=== PATIENT | female | born 1965 | race Caucasian/White ===

== ENCOUNTER 2020-08-03 18:02 | Inpatient (IN) | payer BC ==
[2020-08-03 19:35] LABS: Amphetamine Screen,Urine Not Detected (NotDetected); Barbiturate Screen,Urine Not Detected (NotDetected); Benzodiazepines Screen,Urine Not Detected (NotDetected); Cocaine Screen,Urine Not Detected (NotDetected); Methadone Screen, Urine Not Detected (NotDetected); Opiate Screen,Urine Not Detected (NotDetected); Oxycodone Screen, Urine Not Detected (NotDetected); Phencyclidine Screen,Urine Not Detected (NotDetected); Tricyclic Antidepressant,Urine Not Detected (NotDetected); Urn Cannabinoid Scrn Detected (NotDetected)
[2020-08-03] MEDS ORDERED: LORazepam 1 MG TAB PO STA (20:58)
[2020-08-03] MEDS ORDERED: MAG HYDROX/AL HYDROX/SIMETH 30 ML CUP PO PRN (22:27)
[2020-08-03] MEDS ORDERED: MAGNESIUM HYDROXIDE 2,400 MG/10 ML CUP PO PRN (22:27)
--- NOTE | 2020-08-03 22:57 | ED ---
General Adult HPI - General Source: patient, RN notes reviewed, old records reviewed Mode of arrival: ambulatory Limitations: no limitations <Flo Jang - Last Filed: 08/03/20 22:56> <Lori Spence - Last Filed: 08/10/20 14:50> - General Chief complaint: Psychiatric Symptoms Stated complaint: Mental Health Time Seen by Provider: 08/03/20 18:10 - History of Present Illness Initial comments: 55-year-old female patient to ED for mental health evaluation. Patient reportedly has a history of schizophrenia and has not been taking medications. Patient is denying suicidal or homicidal ideations however does have pressured speech and is tangential. Denies any physical complaints. Systemic: Pt denies fatigue, fever/chills, rash. Pt denies weakness, night sweats, weight loss. Neuro: Pt denies headache, visual disturbances, syncope or pre-syncope. HEENT: Pt denies ocular discharge or irritation, otalgia, rhinorrhea, pharyngitis or notable lymphadenopathy. Cardiopulmonary: Pt denies chest pain, SOB, heart palpitations, dyspnea on exertion. Abdominal/GI: Pt denies abdominal pain, n/v/d. : Pt denies dysuria, burning w/ urination, frequency/urgency. Denies new onset urinary or bowel incontinence. MSK: Pt denies myalgia, loss of strength or function in extremities. Neuro: Pt denies new onset weakness, paresthesias. (Flo Jang) - Related Data Allergies Allergy/AdvReac Type Severity Reaction Status Date / Time acetaminophen [From Vicodin] Allergy Rash/Hives Verified 08/04/20 02:28 hydrocodone [From Vicodin] Allergy Rash/Hives Verified 08/04/20 02:28 Review of Systems ROS Other: All systems not noted in ROS Statement are negative. <Flo Jang - Last Filed: 08/03/20 22:56> ROS Other: All systems not noted in ROS Statement are negative. <Lori Spence - Last Filed: 08/10/20 14:50> ROS Statement: Those systems with pertinent positive or pertinent negative responses have been documented in the HPI. Past Medical History Past Medical History: No Reported History History of Any Multi-Drug Resistant Organisms: None Reported Past Surgical History: No Surgical Hx Reported Past Psychological History: Schizoaffective Disorder, Schizophrenia Smoking Status: Current every day smoker Past Alcohol Use History: None Reported Past Drug Use History: Marijuana <Flo Jang - Last Filed: 08/03/20 22:56> General Exam Limitations: no limitations <Flo Jang - Last Filed: 08/03/20 22:56> - General Exam Comments Initial Comments: Constitutional: NAD, AOX3, Pt has pleasant affect. HEENT: NC/AT, trachea midline, neck supple. External ears appear normal, without discharge. Mucous membranes moist. EOM intact. There is no scleral icterus. No pallor noted. Cardiopulmonary: RRR, no murmurs, rubs or gallops, no JVD noted. Lungs CTAB in anterior and posterior wright. No peripheral edema. Abdominal exam: Abdomen soft and non-distended. Abdomen non-tender to palpation in all 4 quadrants. Neuro: CN II-XII grossly intact. No nuchal rigidity. MSK: Full active ROM in upper and lower extremities. (Flo Jang) Course Vital Signs 08/03/20 08/03/20 18:06 22:39 Temperature 98.0 F 97.9 F Pulse Rate 98 69 Respiratory 16 16 Rate Blood Pressure 180/104 125/79 O2 Sat by Pulse 99 98 Oximetry Medical Decision Making <Flo Jang - Last Filed: 08/03/20 22:56> - Lab Data Result diagrams: 08/04/20 06:44 08/04/20 06:44 <Lori Spence - Last Filed: 08/10/20 14:50> - Medical Decision Making 55-year-old female patient to ED for mental health evaluation. Patient was evaluated by emergency psychiatric service and recommended for admission. Additional spelled out by Dr. Spence. Case discussed with Dr. Spence. (Flo Jang) I was available for consultation in the emergency department. The history and physical exam were done by the midlevel provider. I was consulted for this patients care. I reviewed the case with the midlevel provider and based on their presentation of the patient, I agree with the assessment, medical decision making and plan of care as documented. Chart was dictated using [employer] dictation software. Attempts were made to correct any dictation errors however some typographical errors may persist. Patient was seen during a national state of emergency due to the Covid-19 pandemic. (Lori Spence) - Lab Data Lab Results 08/03/20 08/03/20 Range/Units 19:21 21:06 Urine Opiates Screen Not Detected (NotDetected) Ur Oxycodone Screen Not Detected (NotDetected) Urine Methadone Screen Not Detected (NotDetected) Ur Propoxyphene Screen Not Detected (NotDetected) Ur Barbiturates Screen Not Detected (NotDetected) U Tricyclic Antidepress Not Detected (NotDetected) Ur Phencyclidine Scrn Not Detected (NotDetected) Ur Amphetamines Screen Not Detected (NotDetected) U Methamphetamines Scrn Not Detected (NotDetected) U Benzodiazepines Scrn Not Detected (NotDetected) Urine Cocaine Screen Not Detected (NotDetected) U Marijuana (THC) Screen Detected H (NotDetected) Coronavirus (PCR) Not Detected (Not Detected) Disposition Is patient prescribed a controlled substance at d/c from ED?: No <Flo Jang - Last Filed: 08/03/20 22:56> <Lori Spence - Last Filed: 08/10/20 14:50> Clinical Impression: Psychiatric disorder Disposition: ADMITTED IP TO THIS HOSP Condition: Serious
[2020-08-04 07:17] LABS: Basophils # (A) 0.1 k/uL (0-0.2); Basophils % (A) 1 %; Eosinophils # (A) 0.4 k/uL (0-0.7); Eosinophils % (A) 4 %; HCT 47.8 % (34.0-46.0); HGB 16.6 gm/dL (11.4-16.0); Lymphocytes # (A) 1.5 k/uL (1.0-4.8); Lymphocytes % (A) 18 %; MCH 34.5 pg (25.0-35.0); MCHC 34.8 g/dL (31.0-37.0); MCV 99.3 fL (80.0-100.0); Mean Platelet Volume 6.9; Monocytes # (A) 0.4 k/uL (0-1.0); Monocytes % (A) 5 %; Neutrophils # (A) 5.5 k/uL (1.3-7.7); Neutrophils % (A) 70 %; Platelet Count 158 k/uL (150-450); RBC 4.82 m/uL (3.80-5.40); RDW 12.6 % (11.5-15.5); WBC 7.9 k/uL (3.8-10.6)
[2020-08-04 07:47] LABS: ALT 36 U/L (4-34); AST 36 U/L (14-36); African American GFR (CKD) >90 (>60 ml/min/1.73 sqM); Albumin 4.7 g/dL (3.5-5.0); Alkaline Phosphatase 60 U/L (38-126); Anion Gap 11 mmol/L; Blood Urea Nitrogen 14 mg/dL (7-17); Calcium 9.8 mg/dL (8.4-10.2); Carbon Dioxide 27 mmol/L (22-30); Chloride 100 mmol/L (98-107); Cholesterol 217 mg/dL (<200); Glucose 126 mg/dL (74-99); HDL Cholesterol 42 mg/dL (40-60); LDL Cholesterol,Calculated 146 mg/dL (0-99); Non-African American GFR(CKD) 85 (>60 ml/min/1.73 sqM); Potassium 3.8 mmol/L (3.5-5.1); Sodium 138 mmol/L (137-145); Total Bilirubin 1.4 mg/dL (0.2-1.3); Total Protein 8.6 g/dL (6.3-8.2); Triglycerides 143 mg/dL (<150)
[2020-08-04] MEDS ORDERED: haloperidoL 1 MG TAB PO SCH (09:00)
[2020-08-04] MEDS ORDERED: haloperidoL 1 MG TAB PO PRN (10:37)
--- NOTE | 2020-08-04 10:39 | P.HP ---
Psychiatric H&P - . H&P Date: 08/04/20 History & Physical: Allergies Allergy/AdvReac Type Severity Reaction Status Date / Time acetaminophen From Vicodin Allergy Rash/Hives Verified 08/04/20 02:28 hydrocodone From Vicodin Allergy Rash/Hives Verified 08/04/20 02:28 Vital Signs Temp 99.1 F 08/04/20 06:21 Pulse 91 08/04/20 06:21 Resp 18 08/04/20 06:21 BP 139/58 08/04/20 06:21 Pulse Ox 96 08/04/20 06:21 Intake & Output 08/03/20 08/04/20 08/04/20 18:59 06:59 18:59 Weight 104.326 kg 99.4 kg 99.4 kg Laboratory Last Values WBC 7.9 k/uL (3.8-10.6) 08/04/20 06:44 RBC 4.82 m/uL (3.80-5.40) 08/04/20 06:44 Hgb 16.6 gm/dL (11.4-16.0) H 08/04/20 06:44 Hct 47.8 % (34.0-46.0) H 08/04/20 06:44 MCV 99.3 fL (80.0-100.0) 08/04/20 06:44 MCH 34.5 pg (25.0-35.0) 08/04/20 06:44 MCHC 34.8 g/dL (31.0-37.0) 08/04/20 06:44 RDW 12.6 % (11.5-15.5) 08/04/20 06:44 Plt Count 158 k/uL (150-450) 08/04/20 06:44 MPV 6.9 08/04/20 06:44 Neutrophils % 70 % 08/04/20 06:44 Lymphocytes % 18 % 08/04/20 06:44 Monocytes % 5 % 08/04/20 06:44 Eosinophils % 4 % 08/04/20 06:44 Basophils % 1 % 08/04/20 06:44 Neutrophils # 5.5 k/uL (1.3-7.7) 08/04/20 06:44 Lymphocytes # 1.5 k/uL (1.0-4.8) 08/04/20 06:44 Monocytes # 0.4 k/uL (0-1.0) 08/04/20 06:44 Eosinophils # 0.4 k/uL (0-0.7) 08/04/20 06:44 Basophils # 0.1 k/uL (0-0.2) 08/04/20 06:44 Sodium 138 mmol/L (137-145) 08/04/20 06:44 Potassium 3.8 mmol/L (3.5-5.1) 08/04/20 06:44 Chloride 100 mmol/L (98-107) 08/04/20 06:44 Carbon Dioxide 27 mmol/L (22-30) 08/04/20 06:44 Anion Gap 11 mmol/L 08/04/20 06:44 BUN 14 mg/dL (7-17) 08/04/20 06:44 Creatinine 0.79 mg/dL (0.52-1.04) 08/04/20 06:44 Est GFR (CKD-EPI)AfAm >90 (>60 ml/min/1.73 sqM) 08/04/20 06:44 Est GFR (CKD-EPI)NonAf 85 (>60 ml/min/1.73 sqM) 08/04/20 06:44 Glucose 126 mg/dL (74-99) H 08/04/20 06:44 Calcium 9.8 mg/dL (8.4-10.2) 08/04/20 06:44 Total Bilirubin 1.4 mg/dL (0.2-1.3) H 08/04/20 06:44 AST 36 U/L (14-36) 08/04/20 06:44 ALT 36 U/L (4-34) H 08/04/20 06:44 Alkaline Phosphatase 60 U/L (38-126) 08/04/20 06:44 Total Protein 8.6 g/dL (6.3-8.2) H 08/04/20 06:44 Albumin 4.7 g/dL (3.5-5.0) 08/04/20 06:44 Triglycerides 143 mg/dL (<150) 08/04/20 06:44 Cholesterol 217 mg/dL (<200) H 08/04/20 06:44 LDL Cholesterol, Calc 146 mg/dL (0-99) H 08/04/20 06:44 HDL Cholesterol 42 mg/dL (40-60) 08/04/20 06:44 TSH 3.230 mIU/L (0.465-4.680) 08/04/20 06:44 Urine Opiates Screen Not Detected (NotDetected) 08/03/20 19:21 Ur Oxycodone Screen Not Detected (NotDetected) 08/03/20 19:21 Urine Methadone Screen Not Detected (NotDetected) 08/03/20 19:21 Ur Propoxyphene Screen Not Detected (NotDetected) 08/03/20 19:21 Ur Barbiturates Screen Not Detected (NotDetected) 08/03/20 19:21 U Tricyclic Antidepress Not Detected (NotDetected) 08/03/20 19:21 Ur Phencyclidine Scrn Not Detected (NotDetected) 08/03/20 19:21 Ur Amphetamines Screen Not Detected (NotDetected) 08/03/20 19:21 U Methamphetamines Scrn Not Detected (NotDetected) 08/03/20 19:21 U Benzodiazepines Scrn Not Detected (NotDetected) 08/03/20 19:21 Urine Cocaine Screen Not Detected (NotDetected) 08/03/20 19:21 U Marijuana (THC) Screen Detected (NotDetected) H 08/03/20 19:21 08/04/20 10:26 IDENTIFYING DATA: Patient is a 55-year-old single, female admitted for psychosis. HPI: Patient presented to the hospital on 08/03/2020. Patient has reported history of schizophrenia and has been not taking any medications. She initially presented to the emergency department floridly psychotic with pressured speech. Patient is a limited historian at this time as she is currently presenting with significant psychosis and is responding to internal stimuli. Patient reports that she was staying with her son who lives in [place], and that it with her [id number] who called EMS to bring her to the hospital. Patient states that her [id number] does not like her because she has been swearing constantly around her children. Currently, the patient is endorsing significant latter day preoccupation. She reports any to come down right now because I'm talking to Brian." She then endorses visual hallucinations stating that she sees the clouds and in the heavens were angels and Brian is present. She further reports that while watching television, she noticed the devil and since then she feels like she is being constantly surveyed by the FBI and Chelle Jacob. She does not report any auditory hallucinations. The patient is unable to provide any information as to when these symptoms have started. She is unable to recall her medications aside from Abilify and Prozac. In regards to mood, the patient does report being awake for the last 32 hours. She is unable to provide any significant history of a manic episode. She denies any prior attempts at suicide. She reports no suicidal or homicidal ideation, intention, and/or plan at this time. In regards to substance use, the patient does report smoking marijuana daily. She also reports smoking cigarettes daily but is unable to quantify the amount. She denies any alcohol or other drug use. PAST PSYCHIATRIC HISTORY: Patient states that she has been diagnosed with schizophrenia. She is unable to recall any of her past psychiatric medications aside from Abilify and Prozac. She reports prior psychiatric hospitalizations but cannot recall when and where at this time. He reports that she follows with Dr. Saunders in [place]. She states this has been over telepsych. She denies any prior attempts of suicide in the past. PMH: Patient is unable to verbalize any past medical history. ALLERGIES: Acetaminophen, hydrocodone CHEMICAL DEPENDENCY HISTORY: as per HPI FAMILY PSYCHIATRIC/SUBSTANCE USE HISTORY: Patient is unable to verbalize any family psychiatric or substance use history SOCIAL HISTORY: Patient is currently a poor historian. She reports that she was originally living in [place] and was in [place] staying with her son. MENTAL STATUS EXAM: General Appearance: Patient appears to be stated age, is disheveled, with thinning hair, obese body habitus, and odd posture. Behavior: Patient is seated in bed staring at the floor with intermittent but intense eye contact. Speech: Patient's speech is pressured, tangential, and spontaneous Mood/Affect: Patient reports their mood is "Blessed by God." Affect is expansive, intense, and odd. Suicidality/Homicidality: Patient denies having any homicidal ideation intent or plan. Denies any suicidal ideations intent or plan Perceptions: Patient denies any auditory hallucinations. She reports visual hallucinations of seeing angels and devils. Though content/process: Patient is floridly psychotic. Appears to respond to internal stimuli. Very religiously preoccupied. Paranoid delusions are evident. Memory and concentration: Patient is not alert and oriented at this time. She is unable to spell world backwards. Concentration is poor. Judgment and insight: Very poor STRENGTHS/WEAKNESSES: Unable to determine patient's strengths at this time.. Weakness is that patient is severely mentally ill, and has very poor judgment and insight. INTELLECT: Unable to assess at this time as the patient is floridly psychotic. IMPRESSIONS: Schizoaffective disorder, bipolar type Cannabis use disorder Nicotine dependence PLAN: -Patient is admitted under involuntary status to [facility] for stabilization of psychiatric symptoms and safety. A second certification was completed and along with petition will be filed for court. -Medications : Will start patient on Invega 3 mg by mouth daily at bedtime for psychosis/mood stabilization -Ativan and Haldol PRN for agitation/aggression -Patient was counselled on substance abuse -Patient was informed of the risks, benefits and side effects of the medication but is lacking a medical capacity at this time to agree to treatment. -Internal Medicine consult to perform medical evaluation and physical. -NRT - nicotine patch -SW on board for discharge planning. Encourage patient to participate in groups to work on coping skills.
[2020-08-04] MEDS: ACETAMINOPHEN TAB 325 MG TAB PO PRN (14:54)
[2020-08-04] MEDS: PALIPERIDONE 3 MG TAB.ER.24 PO SCH (21:22)
[2020-08-04] MEDS: DIVALPROEX ER 500 MG TAB.ER.24H PO SCH (21:22)
--- NOTE | 2020-08-05 01:47 | P.CONS ---
History of Present Illness - Reason for Consult Consult date: 08/04/20 medical evaluation Requesting physician: Kam Bateman - Chief Complaint acute psychosis - History of Present Illness 55 year old female with history of schizophrenia , she was brought to the hospital for acute psychosis , she has not been taking her meds. she is tange ntial in her thoughts and not showing interest in the interview. she denies any medical concerns except for a rash on her back, she is not sure when it started or why. denies any suicidal ideation Review of Systems ROS unobtainable: due to mental status Past Medical History Past Medical History: No Reported History History of Any Multi-Drug Resistant Organisms: None Reported Past Surgical History: No Surgical Hx Reported Past Psychological History: Schizoaffective Disorder, Schizophrenia Smoking Status: Current every day smoker Past Alcohol Use History: None Reported Past Drug Use History: Marijuana Medications and Allergies Allergies Allergy/AdvReac Type Severity Reaction Status Date / Time acetaminophen [From Vicodin] Allergy Rash/Hives Verified 08/04/20 02:28 hydrocodone [From Vicodin] Allergy Rash/Hives Verified 08/04/20 02:28 Physical Exam Vitals: Vital Signs Temp Pulse Resp BP Pulse Ox 08/04/20 18:00 97.3 F L 08/04/20 13:00 97.7 F 08/04/20 06:21 99.1 F 91 18 139/58 96 Intake and Output 08/04/20 08/04/20 08/05/20 14:59 22:59 06:59 Other: Weight 99.4 kg limited exam due to patient mental status blanching rash papular in nature, no drainage no wounds, over her lower back , no bleeidng , no tenderness to palpation Results CBC & Chem 7: 08/04/20 06:44 08/04/20 06:44 Labs: Abnormal Lab Results - Last 24 Hours (Table) 08/04/20 08/04/20 Range/Units 06:44 06:44 Hgb 16.6 H (11.4-16.0) gm/dL Hct 47.8 H (34.0-46.0) % Glucose 126 H (74-99) mg/dL Total Bilirubin 1.4 H (0.2-1.3) mg/dL ALT 36 H (4-34) U/L Total Protein 8.6 H (6.3-8.2) g/dL Cholesterol 217 H (<200) mg/dL LDL Cholesterol, Calc 146 H (0-99) mg/dL Assessment and Plan Assessment: acute psychosis with history of schizophrenia management per psych non specific papular rash over the lower back , seems like contact dermatitis or heat rash monitor closely apply eucerin as needed for comfort Thank you for allowing us to participate in the care of this patient. We will follow peripherally. Do not hesitate to contact us with questions. Someone can be reached from the [facility] hospitalist group at all hours of the day at [phone].
[2020-08-05] MEDS: LEVOTHYROXINE 50 MCG TAB PO SCH (06:40)
[2020-08-05] MEDS: OXYBUTYNIN CHLORIDE 5 MG TAB PO SCH (09:32)
[2020-08-05] MEDS: FUROSEMIDE 20 MG TAB PO SCH (09:32)
--- NOTE | 2020-08-05 11:14 | P.PN ---
Progress Note - Text Progress Note Date: 08/05/20 Interval History: Patient was seen sitting on her bed this morning and was directable and agreeable to speak with telegraphic typewriter operator chief in the office. she has Poor hygiene and grooming and disheveled hair. Patient had poverty of content today and speech. She gave vague details about why she came to the hospital and states that "my son Called the ambulance on me". She claims that she does not know why she is not hospital. She complained about her son not taking care of his kids and her having to look after them. She states that her mood is "the same" and denies any depression today. She did state that she is on Prozac in the morning and wanted to be restarted on it. She states that she was able sleep approximately 4 hours last night. She was fairly religiously preoccupied early on in conversation and spoke about "Brian is coming". She states that she has she has fair energy. At this time patient denies any suicidal or homical ideations, intent or plan. Patient denies any auditory, visual hallucinations and denies any paranoia or delusions. Patient denies any side effects from the medications and has been compliant with meds. Mental Status Exam: General Appearance: Patient appears to be overweight, stated age is alert, difficult to redirect and attempts to be cooperative. Disheveled appearance. Behavior: Patient is calmly seated without any agitated behavior. Paranoid/Guarded at times. Speech: Patient's speech is fluent and nonpressured. Mood/Affect: Mood is "the same", affect is congruent and constricted. Suicidality/Homicidality: Patient denies having any suicidal or homicidal ideation intent or plan. Perceptions: Patient denies any visual hallucinations and denies any auditory hallucinations Though content/process: . She is fairly guarded and endorsing some paranoia. She is religiously preoccupied. Memory and concentration: AOX3, grossly intact for the purposes of this session Judgment and insight: Poor Assessment Schizoaffective disorder, bipolar type Cannabis use disorder Nicotine dependence Plan: -Patient continues to meet criteria for inpatient psychiatric admission for symptom stabilization and safety. Patient has not signed adult voluntary form and medication consent and was placed in patient's chart. Patient's second certificate along with her petition was filed with the court and currently awaiting deferral and full court hearing date. -Medications: Continue with paliperidone by mouth 3 mg daily at bedtime for p sychosis/mood stabilization. Continue with Depakote 500 mg daily at bedtime for mood stabilization, added Prozac 20 mg daily for mood/anxiety. -When necessary Ativan and Haldol for agitation/aggression. -NRT - nicotine patch -SW on board for discharge planning. Encouraged the patient to participate in milieu. Will await court hearing date along with deferral date.
[2020-08-05] MEDS: FLUoxetine HCL 20 MG CAP PO SCH (13:32)
[2020-08-05] MEDS: PALIPERIDONE 3 MG TAB.ER.24 PO SCH (21:40)
[2020-08-05] MEDS: DIVALPROEX ER 500 MG TAB.ER.24H PO SCH (21:41)
[2020-08-06] MEDS: LEVOTHYROXINE 50 MCG TAB PO SCH (06:32)
[2020-08-06] MEDS: FUROSEMIDE 20 MG TAB PO SCH (07:49)
[2020-08-06] MEDS: FLUoxetine HCL 20 MG CAP PO SCH (07:49)
[2020-08-06] MEDS: OXYBUTYNIN CHLORIDE 5 MG TAB PO SCH (07:49)
--- NOTE | 2020-08-06 11:23 | P.PN ---
Progress Note - Text Progress Note Date: 08/06/20 Interval History: Patient was seen this morning and was directable and agreeable to speak with ranjan stewart. Patient was seen after brushing her teeth and was wandering around her room aimlessly. She continues to have poor hygiene and grooming and disheveled hair. Patient appeared to be calmer with narrative writer however continues to be delusional. She states that "the spirits are still out there" and then began speaking about "Satan" and "Brian". He continues to display poor insight and judgment however states that she'll continue to be taking her medications. She claims that she has not spoken with the tow motor operator as of yet. She claims that she does not know why she is in the hospital. She complained about her son once again. She states that her mood is "fine" and denies any depression today. She had a constricted affect. She states that she was able sleep approximately 5 hours last night. She was fairly religiously preoccupied during conversation and was illogical at times. She states that she has she has fair energy. At this time patient denies any suicidal or homical ideations, intent or plan. Patient denies any auditory, visual hallucinations. Patient denies any side effects from the medications and has been compliant with meds. Mental Status Exam: General Appearance: Patient appears to be overweight, stated age is alert, more directable today and attempts to be cooperative. Disheveled appearance. Behavior: Patient is calmly seated without any agitated behavior. Parano id/Guarded at times, improving mildly. Bizarre. Speech: Patient's speech is fluent and nonpressured. Mood/Affect: Mood is "ok", affect is congruent and constricted. Suicidality/Homicidality: Patient denies having any suicidal or homicidal ideation intent or plan. Perceptions: Patient denies any visual hallucinations and denies any auditory hallucinations Though content/process: She is fairly guarded and endorsing some paranoia. She is religiously preoccupied. Memory and concentration: AOX3, grossly intact for the purposes of this session Judgment and insight: Poor Assessment Schizoaffective disorder, bipolar type Cannabis use disorder Nicotine dependence Plan: -Patient continues to meet criteria for inpatient psychiatric admission for symptom stabilization and safety. Patient has not signed adult voluntary form and medication consent and was placed in patient's chart. Awaiting deferral date set for 08/07/2020. -Medications: Increased paliperidone by mouth 6 mg daily at bedtime for psychosis/mood stabilization. Continue with Depakote 500 mg daily at bedtime for mood stabilization, continue with Prozac 20 mg daily for mood/anxiety. -When necessary Ativan and Haldol for agitation/aggression. -NRT - nicotine patch -SW on board for discharge planning. Encouraged the patient to participate in milieu. Will await court hearing date along with deferral date set for tomorr ow.
[2020-08-06] MEDS: DIVALPROEX ER 500 MG TAB.ER.24H PO SCH (20:27)
[2020-08-06] MEDS: PALIPERIDONE 6 MG TAB.ER.24 PO SCH (21:14)
[2020-08-07] MEDS: LORazepam 1 MG TAB PO PRN (02:03)
[2020-08-07] MEDS: LEVOTHYROXINE 50 MCG TAB PO SCH (06:36)
[2020-08-07] MEDS: FLUoxetine HCL 20 MG CAP PO SCH (08:32)
[2020-08-07] MEDS: FUROSEMIDE 20 MG TAB PO SCH (08:32)
[2020-08-07] MEDS: OXYBUTYNIN CHLORIDE 5 MG TAB PO SCH (08:32)
--- NOTE | 2020-08-07 09:37 | P.PN ---
Progress Note - Text Progress Note Date: 08/07/20 Interval History: Patient was seen this morning in her room and was directable and agreeable to speak with commercial real estate underwriter. She continues to have poor hygiene and grooming and disheveled hair. Patient appeared to be calmer with commercial real estate underwriter today and less argumentative. Patient was claiming that she was watching the news yesterday and states that "President Brando is office already and Kylie has left" and began to state that the new president has dementia and she is worried about him. Patient continues to be delusional and has poor reality testing. She appeared to be less religiously preoccupied today. She continues to display poor insight and judgment. Patient had refused her paliperidone last night and when asked about it she states that she was not supposed to be on the medication. Manager Of Application Development did however speak with patient about her concerns and patient claims that she is more agreeable to take it tonight. She states that her mood is "fine" and denies any depression today. She had a constricted affect. She states that she was able sleep approximately 3 hours last night as she was having a difficult time initiating sleep and required Ativan. At this time patient denies any suicidal or homical ideations, intent or plan. Patient denies any auditory, visual hallucinations. Patient denies any side effects from the medications and has been compliant with meds. Mental Status Exam: General Appearance: Patient appears to be overweight, stated age is alert, more directable today and attempts to be cooperative. Disheveled appearance. Behavior: Patient is calmly seated without any agitated behavior. Paranoid/Guarded at times, improving mildly. Bizarre. Speech: Patient's speech is fluent and nonpressured. Mood/Affect: Mood is "good", affect is congruent and constricted. Suicidality/Homicidality: Patient denies having any suicidal or homicidal ideation intent or plan. Perceptions: Patient denies any visual hallucinations and denies any auditory hallucinations Though content/process: She is fairly guarded and endorsing some paranoia. She is religiously and politically preoccupied, mildly improving. Memory and concentration: AOX3, grossly intact for the purposes of this session Judgment and insight: Poor, improving mildly Assessment Schizoaffective disorder, bipolar type Cannabis use disorder Nicotine dependence Plan: -Patient continues to meet criteria for inpatient psychiatric admission for symptom stabilization and safety. Patient has not signed adult voluntary form and medication consent and was placed in patient's chart. Awaiting deferral date set for 08/07/2020. -Medications: Continue with paliperidone by mouth 6 mg daily at bedtime for psychosis/mood stabilization. Continue with Depakote 500 mg daily at bedtime for mood stabilization, continue with Prozac 20 mg daily for mood/anxiety. -When necessary Ativan and Haldol for agitation/aggression. -NRT - nicotine patch -SW on board for discharge planning. Encouraged the patient to participate in milieu. Will await court hearing date along with deferral date set for today.
[2020-08-07] MEDS: DIVALPROEX ER 500 MG TAB.ER.24H PO SCH (21:14)
[2020-08-07] MEDS: PALIPERIDONE 6 MG TAB.ER.24 PO SCH (21:14)
[2020-08-08] MEDS: ACETAMINOPHEN TAB 325 MG TAB PO PRN (01:50)
[2020-08-08] MEDS: LEVOTHYROXINE 50 MCG TAB PO SCH (06:47)
[2020-08-08] MEDS: FUROSEMIDE 20 MG TAB PO SCH (08:30)
[2020-08-08] MEDS: OXYBUTYNIN CHLORIDE 5 MG TAB PO SCH (08:30)
[2020-08-08] MEDS: FLUoxetine HCL 20 MG CAP PO SCH (08:30)
--- NOTE | 2020-08-08 09:49 | P.PN ---
Progress Note - Text Progress Note Date: 08/08/20 Interval History: Patient was seen this morning in her room and was directable and agreeable to speak with conventional mortgage underwriter. She continues to have poor hygiene and grooming and disheveled hair. Patient appeared to be more argumentative with conventional mortgage underwriter today and slightly more irritable. She claims that she is waiting for "Brian to calm". She also looked at different teachers in the office and pointed at him and states that "thats in [place]" "that's in [place]". She also claims that conventional mortgage underwriter is "wasting my time" and asked several times to leave the office. Patient had a low frustration tolerance and continues to have poor insight and judgment. Patient continues to be delusional and has poor reality testing. Patient claims that she didn't take the paliperidone last night. She states that she only slept approximately 1-2 hours last night. She states that her mood is "fine" and denies any depression today. She had a constricted affect. At this time patient denies any suicidal or homical ideations, intent or plan. Patient denies any auditory, visual hallucinations. Patient denies any side effects from the medications and has been compliant with meds. Patient was agreeable to take trazodone at nighttime. Mental Status Exam: General Appearance: Patient appears to be overweight, stated age is alert, more argumentative today. Disheveled appearance. Behavior: Patient is calmly seated without any agitated behavior. Paranoid/Guarded at times, improving mildly. Bizarre. Speech: Patient's speech is fluent and nonpressured. Mood/Affect: Mood is "fine", affect is incongruent and constricted. Suicidality/Homicidality: Patient denies having any suicidal or homicidal ideation intent or plan. Perceptions: Patient denies any visual hallucinations and denies any auditory hallucinations Though content/process: She is fairly guarded and endorsing some paranoia. She is religiously and politically preoccupied. Bizarre content Memory and concentration: AOX3, grossly intact for the purposes of this session Judgment and insight: Poor Assessment Schizoaffective disorder, bipolar type Cannabis use disorder Nicotine dependence Plan: -Patient continues to meet criteria for inpatient psychiatric admission for symptom stabilization and safety. Patient has not signed adult voluntary form and medication consent and was placed in patient's chart. Patient deferred with an finance attorney on 08/07/2020. -Medications: Continue with paliperidone by mouth 6 mg daily at bedtime for psychosis/mood stabilization. Continue with Depakote 500 mg daily at bedtime for mood stabilization, replaced Prozac with Cymbalta 30 mg daily for mood/anxiety. Added trazodone 50 mg daily at bedtime for insomnia. -When necessary Ativan and Haldol for agitation/aggression. -NRT - nicotine patch -SW on board for discharge planning. Encouraged the patient to participate in milieu.
[2020-08-08] MEDS: PALIPERIDONE 6 MG TAB.ER.24 PO SCH (20:17)
[2020-08-08] MEDS: traZODone HCL 50 MG TAB PO SCH (20:18)
[2020-08-08] MEDS: DIVALPROEX ER 500 MG TAB.ER.24H PO SCH (20:18)
[2020-08-09] MEDS: LEVOTHYROXINE 50 MCG TAB PO SCH (06:01)
[2020-08-09] MEDS: DULoxetine HCL 30 MG CAPSULE.DR PO SCH (08:28)
[2020-08-09] MEDS: OXYBUTYNIN CHLORIDE 5 MG TAB PO SCH (08:28)
[2020-08-09] MEDS: FUROSEMIDE 20 MG TAB PO SCH (08:28)
--- NOTE | 2020-08-09 09:34 | P.PN ---
Progress Note - Text Progress Note Date: 08/09/20 Interval History: Patient was seen this morning wandering the hallways and was directable and ag reeable to speak with resume writer. Patient was less argumentative with resume writer today and appeared to be more cooperative. She continues to make bizarre statements and states that "I want you to get him out" and when resume writer asked who she was speaking about she states that "my 's in the garage putting up decorations". She continues to be tangential and have some loose associations and her thought process. She spoke about trying to speak with other patients on the unit and also claimed that she was able to go to group today. She states that in group today were talking about "Brian and Brian only". Patient states that she was able to sleep better last night. She claims that she is agreeable to have her paliperidone increased. She continues to speak about her senior living at the end of the month and stated that "my paperwork is already in". Patient continues to be delusional and has poor reality testing. She states that her mood is "fine" and denies any depression today. She had a constricted affect. At this time patient denies any suicidal or homical ideations, intent or plan. Patient denies any auditory, visual hallucinations. Patient denies any side effects from the medications and has been compliant with meds. According to staff note in the EMR, patient tried to put hand iron erector that was given to her before group in her mouth and when patient was asked about this she stated that "I thought it was with cream". Mental Status Exam: General Appearance: Patient appears to be overweight, stated age is alert, less argumentative today and attempts to cooperate. Disheveled appearance. Behavior: Patient is calmly seated without any agitated behavior. Bizarre, improving mildly. Speech: Patient's speech is fluent and nonpressured. Mood/Affect: Mood is "ok", affect is incongruent and constricted. Suicidality/Homicidality: Patient denies having any suicidal or homicidal ideation intent or plan. Perceptions: Patient denies any visual hallucinations and denies any auditory hallucinations Though content/process: She is endorsing some paranoia. Tangential, loose associations. She is religiously and politically preoccupied. Bizarre content Memory and concentration: AOX3, grossly intact for the purposes of this session Judgment and insight: Poor, improving mildly Assessment Schizoaffective disorder, bipolar type Cannabis use disorder Nicotine dependence Plan: -Patient continues to meet criteria for inpatient psychiatric admission for symptom stabilization and safety. Patient has not signed adult voluntary form and medication consent and was placed in patient's chart. Patient deferred with an estate planning attorney on 08/07/2020. -Medications: Increased paliperidone by mouth 6 mg daily at bedtime + 3mg daily for psychosis/mood stabilization. Continue with Depakote 500 mg daily at bedtime for mood stabilization, continue with Cymbalta 30 mg daily for mood/anxiety. Continue with trazodone 50 mg daily at bedtime for insomnia. -When necessary Ativan and Haldol for agitation/aggression. -NRT - nicotine patch -SW on board for discharge planning. Encouraged the patient to participate in milieu. Likely discharge next week.
[2020-08-09] MEDS: PALIPERIDONE 3 MG TAB.ER.24 PO SCH (09:48)
[2020-08-09] MEDS: traZODone HCL 50 MG TAB PO SCH (21:19)
[2020-08-09] MEDS: PALIPERIDONE 6 MG TAB.ER.24 PO SCH (21:19)
[2020-08-09] MEDS: DIVALPROEX ER 500 MG TAB.ER.24H PO SCH (21:19)
[2020-08-09] MEDS: ALBUTEROL HFA INHALER INHALATION PRN (21:48)
[2020-08-10] MEDS: LEVOTHYROXINE 50 MCG TAB PO SCH (06:36)
[2020-08-10] MEDS: DULoxetine HCL 30 MG CAPSULE.DR PO SCH (08:22)
[2020-08-10] MEDS: FUROSEMIDE 20 MG TAB PO SCH (08:22)
[2020-08-10] MEDS: PALIPERIDONE 3 MG TAB.ER.24 PO SCH (08:22)
[2020-08-10] MEDS: OXYBUTYNIN CHLORIDE 5 MG TAB PO SCH (08:22)
--- NOTE | 2020-08-10 10:12 | P.PN ---
Progress Note - Text Progress Note Date: 08/10/20 Interval History: Patient was seen this morning her room and was directable and agreeable to speak with commercial lines underwriter. Patient was less argumentative with commercial lines underwriter today. Patient continues to make bizarre statements about Ervin Michaels and also spoke about Osbaldo Garza who was playing music loud last night. When asked more about that she states that "I don't know you guys hired him". She continues to be tangential and loose associations. She appears to be more cooperative with commercial lines underwriter today. She claims that she has been going to groups "only to socialize". He states that she was only able to sleep 1 hour last night. She claims that she is agreeable to have her paliperidone increased. At this time patient denies any suicidal or homical ideations, intent or plan. Patient denies any auditory, visual hallucinations. Patient denies any side effects from the medications and has been compliant with meds. Mental Status Exam: General Appearance: Patient appears to be overweight, stated age is alert, less argumentative today and attempts to cooperate. Disheveled appearance. Behavior: Patient is calmly seated without any agitated behavior. Bizarre, improving mildly. Speech: Patient's speech is fluent and nonpressured. Mood/Affect: Mood is "fine", affect is incongruent and constricted. Suicidality/Homicidality: Patient denies having any suicidal or homicidal ideation intent or plan. Perceptions: Patient denies any visual hallucinations and denies any auditory hallucinations Though content/process: She is endorsing some paranoia. Tangential, loose associations. She is religiously and politically preoccupied with Discharge. Bizarre content Memory and concentration: AOX3, grossly intact for the purposes of this session Judgment and insight: Poor, improving mildly Assessment Schizoaffective disorder, bipolar type Cannabis use disorder Nicotine dependence Plan: -Patient continues to meet criteria for inpatient psychiatric admission for symptom stabilization and safety. Patient has not signed adult voluntary form and medication consent and was placed in patient's chart. Patient deferred with an tax associate attorney on 08/07/2020. -Medications: Increased paliperidone by mouth 6 mg daily at bedtime BID for psychosis/mood stabilization. Continue with Depakote 500 mg daily at bedtime for mood stabilization, continue with Cymbalta 30 mg daily for mood/anxiety. Increased trazodone 100 mg daily at bedtime for insomnia. -When necessary Ativan and Haldol for agitation/aggression. -NRT - nicotine patch -SW on board for discharge planning. Encouraged the patient to participate in milieu. Likely discharge next week.
[2020-08-10] MEDS: LORazepam 1 MG TAB PO PRN (13:24)
[2020-08-10] MEDS ORDERED: traZODone HCL 100 MG TAB PO SCH (21:00)
[2020-08-10] MEDS: DIVALPROEX ER 500 MG TAB.ER.24H PO SCH (21:40)
[2020-08-10] MEDS: PALIPERIDONE 6 MG TAB.ER.24 PO SCH (21:40)
[2020-08-10] MEDS: ALBUTEROL HFA INHALER INHALATION PRN (21:41)
[2020-08-11] MEDS: LEVOTHYROXINE 50 MCG TAB PO SCH (06:14)
[2020-08-11] MEDS: DULoxetine HCL 30 MG CAPSULE.DR PO SCH (09:24)
[2020-08-11] MEDS: OXYBUTYNIN CHLORIDE 5 MG TAB PO SCH (09:25)
[2020-08-11] MEDS: PALIPERIDONE 6 MG TAB.ER.24 PO SCH ×2 (09:25→20:41)
[2020-08-11] MEDS: FUROSEMIDE 20 MG TAB PO SCH ×2 (09:25→11:10)
--- NOTE | 2020-08-11 10:11 | P.PN ---
Progress Note - Text Progress Note Date: 08/11/20 Interval History: Patient was seen this morning in her room and was directable and agreeable to speak with teletypewriter installer. Patient was less argumentative with teletypewriter installer today and appeared to be more cooperative with a brighter affect. Patient continues to make some bizarre statements and today spoke about her soaps and shampoos in her room and was fairly illogical. She continues to be tangential and loose associations, mild improvement. She seems that she has been going to groups and states that in groups they are "doing a adventism ceremony". He continues to have poor insight and judgment. She states that she is able to sleep a bit better last night was agreeable to have her medication increased. At this time patient denies any suicidal or homical ideations, intent or plan. Patient denies any auditory, visual hallucinations. Patient denies any side effects from the medications and has been compliant with meds. Mental Status Exam: General Appearance: Patient appears to be overweight, stated age is alert, less argumentative today and attempts to cooperate. Disheveled appearance, improving mildly. Behavior: Patient is calmly seated without any agitated behavior. Bizarre, improving mildly. Speech: Patient's speech is fluent and nonpressured. Mood/Affect: Mood is "ok", affect is incongruent and constricted. Suicidality/Homicidality: Patient denies having any suicidal or homicidal ideation intent or plan. Perceptions: Patient denies any visual hallucinations and denies any auditory hallucinations Though content/process: loose associations. She is religiously preoccupied, improving mildly. Bizarre content at times Memory and concentration: AOX3, grossly intact for the purposes of this session Judgment and insight: Poor, improving mildly Assessment Schizoaffective disorder, bipolar type Cannabis use disorder Nicotine dependence Plan: -Patient continues to meet criteria for inpatient psychiatric admission for symptom stabilization and safety. Patient has not signed adult voluntary form and medication consent and was placed in patient's chart. Patient deferred with an web design specialist on 08/07/2020. -Medications: Continue with paliperidone by mouth 6 mg BID for psychosis/mood stabilization. Continue with Depakote 500 mg daily at bedtime for mood stabilization, continue with Cymbalta 30 mg daily for mood/anxiety. Increased trazodone 150 mg daily at bedtime for insomnia. Added melatonin 5 mg daily at bedtime for insomnia. -When necessary Ativan and Haldol for agitation/aggression. -NRT - nicotine patch -SW on board for discharge planning. Encouraged the patient to participate in milieu. Likely discharge in 2-3 days.
[2020-08-11] MEDS: DIVALPROEX ER 500 MG TAB.ER.24H PO SCH (20:41)
[2020-08-11] MEDS ORDERED: traZODone HCL 50 MG TAB PO SCH (21:00)
[2020-08-11] MEDS ORDERED: MELATONIN 5 MG TABLET PO SCH (21:00)
[2020-08-12] MEDS: LEVOTHYROXINE 50 MCG TAB PO SCH (06:14)
[2020-08-12] MEDS: DULoxetine HCL 30 MG CAPSULE.DR PO SCH (08:45)
[2020-08-12] MEDS: FUROSEMIDE 20 MG TAB PO SCH (08:45)
[2020-08-12] MEDS: PALIPERIDONE 6 MG TAB.ER.24 PO SCH ×2 (08:46→20:21)
[2020-08-12] MEDS: OXYBUTYNIN CHLORIDE 5 MG TAB PO SCH (08:46)
--- NOTE | 2020-08-12 09:11 | P.PN ---
Progress Note - Text Progress Note Date: 08/12/20 Interval History: Patient was seen this morning wandering the hallways after taking her medicati ons and was directable and agreeable to speak with rfp writer. Today patient was more cooperative with a brighter affect. Patient was making less bizarre statements today and was more appropriate in her conversation. She was also more logical today. She continues to be tangential however showing, mild improvement. She claims that she has been going to groups and states that in groups they did a "moravian ceremony" yesterday however today does not know what they are going to be doing is looking forward to it. sHe is demonstrating improvement in her insight and judgment today. She states that she is able to sleep a bit better last night was agreeable to have her medication increased. At this time patient denies any suicidal or homical ideations, intent or plan. Patient denies any auditory, visual hallucinations. Patient denies any side effects from the medications and has been compliant with meds. Mental Status Exam: General Appearance: Patient appears to be overweight, stated age is alert, more directable today and attempts to cooperate. Proving hygiene and grooming. Behavior: Patient is calmly seated without any agitated behavior. improving mildly. Speech: Patient's speech is fluent and nonpressured. Mood/Affect: Mood is "fine", affect is incongruent and constricted. Suicidality/Homicidality: Patient denies having any suicidal or homicidal ideation intent or plan. Perceptions: Patient denies any visual hallucinations and denies any auditory hallucinations Though content/process: More logical and goal oriented. Religiously preoccupied, improving. Memory and concentration: AOX3, grossly intact for the purposes of this session Judgment and insight: Poor, improving mildly Assessment Schizoaffective disorder, bipolar type Cannabis use disorder Nicotine dependence Plan: -Patient continues to meet criteria for inpatient psychiatric admission for symptom stabilization and safety. Patient has not signed adult voluntary form and medication consent and was placed in patient's chart. Patient deferred with an ip attorney on 08/07/2020. -Medications: Continue with paliperidone by mouth 6 mg BID for psychosis/mood stabilization. Continue with Depakote 500 mg daily at bedtime for mood stabilization, continue with Cymbalta 30 mg daily for mood/anxiety. Increased trazodone 200 mg daily at bedtime for insomnia. Increased melatonin 10 mg daily at bedtime for insomnia. -When necessary Ativan and Haldol for agitation/aggression. -NRT - nicotine patch -SW on board for discharge planning. Encouraged the patient to participate in milieu. Likely discharge tomorrow.
[2020-08-12] MEDS: ACETAMINOPHEN TAB 325 MG TAB PO PRN (13:38)
[2020-08-12] MEDS: DIVALPROEX ER 500 MG TAB.ER.24H PO SCH (20:21)
[2020-08-12] MEDS ORDERED: traZODone HCL 100 MG TAB PO SCH (21:00)
[2020-08-12] MEDS ORDERED: MELATONIN 5 MG TABLET PO SCH (21:00)
[2020-08-13 04:51] VITALS: BP 108/62; PULSE 75; RESP 16; TEMP 97.9
[2020-08-13] MEDS: LEVOTHYROXINE 50 MCG TAB PO SCH (06:29)
[2020-08-13] MEDS: ACETAMINOPHEN TAB 325 MG TAB PO PRN (07:49)
[2020-08-13] MEDS: OXYBUTYNIN CHLORIDE 5 MG TAB PO SCH (08:23)
[2020-08-13] MEDS: FUROSEMIDE 20 MG TAB PO SCH (08:23)
[2020-08-13] MEDS: PALIPERIDONE 6 MG TAB.ER.24 PO SCH (08:23)
[2020-08-13] MEDS: DULoxetine HCL 30 MG CAPSULE.DR PO SCH (08:23)
[2020-08-13 11:45] VITALS: BMI 38.1
--- NOTE | 2020-08-13 13:06 | P.DS ---
Providers Date of admission: 08/03/20 22:22 Expected date of discharge: 08/13/20 Attending physician: Markie Saini MD Consults: 08/03/20 22:27 Consult Physician Routine Consulting Provider: Deondre Ramsey Consult Reason/Comments: medical management Do you want consulting provider notified?: Yes Primary care physician: Hans Mendoza - Discharge Diagnosis(es) (1) Schizoaffective disorder, bipolar type Current Visit: Yes Status: Acute Priority: High (2) Cannabis use disorder, mild, abuse Current Visit: Yes Status: Acute Priority: Medium (3) Nicotine dependence Current Visit: Yes Status: Acute Priority: Low Hospital Course: Admission HPI: Admission and was completed by headline writer "Patient is a 55-year-old single, female admitted for psychosis. Patient presented to the hospital on 08/03/2020. Patient has reported history of schizophrenia and has been not taking any medications. She initially presented to the emergency department floridly psychotic with pressured speech. Patient is a limited historian at this time as she is currently presenting with significant psychosis and is responding to internal stimuli. Patient reports that she was staying with her son who lives in [place], and that it with her [id number]-dyt who called EMS to bring her to the hospital. Patient states that her tbyyiyem-sl-con does not like her because she has been swearing constantly around her children. Currently, the patient is endorsing significant buddhism preoccupation. She reports any to come down right now because I'm talking to Brian." She then endorses visual hallucinations stating that she sees the clouds and in the heavens were angels and Brian is present. She further reports that while watching television, she noticed the devil and since then she feels like she is being constantly surveyed by the FBI and Chelle Jacob. She does not report any auditory hallucinations. The patient is unable to provide any information as to when these symptoms have started. She is unable to recall her medications aside from Abilify and Prozac. In regards to mood, the patient does report being awake for the last 32 hours. She is unable to provide any significant history of a manic episode. She denies any prior attempts at suicide. She reports no suicidal or homicidal ideation, intention, and/or plan at this time. In regards to substance use, the patient does report smoking marijuana daily. She also reports smoking cigarettes daily but is unable to quantify the amount. She denies any alcohol or other drug use." Hospital course: Upon admission to the unit patient was initially bizarre, psychotic and responding to internal stimuli. Patient was however admitted to the unit involuntarily and a second certificate and petition was filed with the courts. Patient ended up signing deferral and agreeable to continue on with treatment. Patient got along well with other patients on the unit and followed unit protocol. Patient was compliant with the medications and denied any side effects throughout hospital course. Patient was started on paliperidone and titrated up to a dose of 6 mg twice a day for psychosis/mood stabilization. Patient was also kept on her home dose of Depakote 500 mg daily at bedtime for mood stabilization. Patient was started on Cymbalta 30 mg daily for mood/anxiety. Patient was also started on trazodone and increased to a dose of 200 mg daily at bedtime for insomnia. Patient was also started on melatonin 10 mg daily at bedtime for insomnia. Patient spoke of her stressors and engaged in therapy both group and individual. Patient was also seen by medical team for history and physical exam. Throughout the course of the hospitalization patient gradually improved with regards to mood, psychosis, behaviors, sleep and improved with regards to her insight and judgment and returned back to her bas roger of functioning. On the day of discharge patient denied any suicidal or homicidal ideations intent or plan denied any auditory or visual hallucinations. Patient endorsed wanting to live for her grandchildren and her future. The patient denied any access to guns or weapons. Patient denied any paranoia and did not endorse any delusions. Patient does have a significant history of substance abuse and was counseled on abstaining from all substances including alcohol and marijuana. Patient wanted to cut back on her marijuana use on her own. Patient was also counseled on the medications and need for regular compliance and was encouraged to follow-up with their outpatient appointment for mental health and also for primary care. Prior to discharge a family meeting will be arranged by social services analyst to answer any questions and ensure safety upon discharge. Mental status exam: General Appearance: Patient appears to be overweight, stated age is alert, more directable today and attempts to be cooperative. Patient is in no acute distress and has improved hygiene and grooming Behavior: Patient is calmly seated without any agitated behavior. More directable today and cooperative. Speech: Patient's speech is fluent and nonpressured. Mood/Affect: Patient reports their mood is "better", affect is congruent and constricted Suicidality/Homicidality: Patient denies having any suicidal or homicidal ideation intent or plan. Perceptions: Patient denies any auditory or visual hallucinations. Though content/process: There is no evidence of any delusional thought content and thought process is goal-directed. Memory and concentration: AOX3, grossly intact for the purposes of this session. Can spell "WORLD" backwards correctly. Judgment and insight: chronically poor, however has improved with guarded prognosis Impression: Schizoaffective disorder, bipolar type Cannabis use disorder Nicotine dependence Plan: -Continue with discharge today as patient has improved and stabilized psychiatrically and is not currently an imminent threat to herself and/or others. Patient will remain at chronically elevated risk for harm to self and/or others due to her chronically poor insight and chronic mental illness. -Continue medications: Continue with paliperidone by mouth 6 mg twice a day for psychosis/mood stabilization, Depakote 500 mg daily at bedtime for mood stabilization, Cymbalta 30 mg daily for mood/anxiety, trazodone 200 mg daily at bedtime for insomnia/mood, melatonin 10 mg daily at bedtime for insomnia. -Patient was counseled on the need for medication compliance and appropriate follow-up at mental health and also primary care for medical issues. Patient verbalized understanding and agreed. -Social work to arrange for and conduct family meeting to ensure safety upon discharge and answer any questions/concerns. Social work also to arrange for patients follow up appointments for psychiatric care along with follow up with primary care provider. -Patient counseled on abstaining from recreational drugs and marijuana and alcohol. Was informed/educated on the adverse effects on their physical and mental health. Patient verbally agreed and understood. -Patient was instructed to return to the hospital or seek immediate medical care if their psychiatric or medical symptoms do worsen or reoccur. Allergies Allergy/AdvReac Type Severity Reaction Status Date / Time acetaminophen [From Vicodin] Allergy Rash/Hives Verified 08/04/20 02:28 hydrocodone [From Vicodin] Allergy Rash/Hives Verified 08/04/20 02:28 Laboratory Results WBC 7.9 k/uL (3.8-10.6) 08/04/20 06:44 RBC 4.82 m/uL (3.80-5.40) 08/04/20 06:44 Hgb 16.6 gm/dL (11.4-16.0) H 08/04/20 06:44 Hct 47.8 % (34.0-46.0) H 08/04/20 06:44 MCV 99.3 fL (80.0-100.0) 08/04/20 06:44 MCH 34.5 pg (25.0-35.0) 08/04/20 06:44 MCHC 34.8 g/dL (31.0-37.0) 08/04/20 06:44 RDW 12.6 % (11.5-15.5) 08/04/20 06:44 Plt Count 158 k/uL (150-450) 08/04/20 06:44 MPV 6.9 08/04/20 06:44 Neutrophils % 70 % 08/04/20 06:44 Lymphocytes % 18 % 08/04/20 06:44 Monocytes % 5 % 08/04/20 06:44 Eosinophils % 4 % 08/04/20 06:44 Basophils % 1 % 08/04/20 06:44 Neutrophils # 5.5 k/uL (1.3-7.7) 08/04/20 06:44 Lymphocytes # 1.5 k/uL (1.0-4.8) 08/04/20 06:44 Monocytes # 0.4 k/uL (0-1.0) 08/04/20 06:44 Eosinophils # 0.4 k/uL (0-0.7) 08/04/20 06:44 Basophils # 0.1 k/uL (0-0.2) 08/04/20 06:44 Sodium 138 mmol/L (137-145) 08/04/20 06:44 Potassium 3.8 mmol/L (3.5-5.1) 08/04/20 06:44 Chloride 100 mmol/L (98-107) 08/04/20 06:44 Carbon Dioxide 27 mmol/L (22-30) 08/04/20 06:44 Anion Gap 11 mmol/L 08/04/20 06:44 BUN 14 mg/dL (7-17) 08/04/20 06:44 Creatinine 0.79 mg/dL (0.52-1.04) 08/04/20 06:44 Est GFR (CKD-EPI)AfAm >90 (>60 ml/min/1.73 sqM) 08/04/20 06:44 Est GFR (CKD-EPI)NonAf 85 (>60 ml/min/1.73 sqM) 08/04/20 06:44 Glucose 126 mg/dL (74-99) H 08/04/20 06:[address] Glu mg/dL 97 08/04/20 06:44 Hemoglobin A1c 5.0 % (4.0-6.0) 08/04/20 06:44 Calcium 9.8 mg/dL (8.4-10.2) 08/04/20 06:44 Total Bilirubin 1.4 mg/dL (0.2-1.3) H 08/04/20 06:44 AST 36 U/L (14-36) 08/04/20 06:44 ALT 36 U/L (4-34) H 08/04/20 06:44 Alkaline Phosphatase 60 U/L (38-126) 08/04/20 06:44 Total Protein 8.6 g/dL (6.3-8.2) H 08/04/20 06:44 Albumin 4.7 g/dL (3.5-5.0) 08/04/20 06:44 Triglycerides 143 mg/dL (<150) 08/04/20 06:44 Cholesterol 217 mg/dL (<200) H 08/04/20 06:44 LDL Cholesterol, Calc 146 mg/dL (0-99) H 08/04/20 06:44 HDL Cholesterol 42 mg/dL (40-60) 08/04/20 06:44 TSH 3.230 mIU/L (0.465-4.680) 08/04/20 06:44 Urine Opiates Screen Not Detected (NotDetected) 08/03/20 19:21 Ur Oxycodone Screen Not Detected (NotDetected) 08/03/20 19:21 Urine Methadone Screen Not Detected (NotDetected) 08/03/20 19:21 Ur Propoxyphene Screen Not Detected (NotDetected) 08/03/20 19:21 Ur Barbiturates Screen Not Detected (NotDetected) 08/03/20 19:21 U Tricyclic Antidepress Not Detected (NotDetected) 08/03/20 19:21 Ur Phencyclidine Scrn Not Detected (NotDetected) 08/03/20 19:21 Ur Amphetamines Screen Not Detected (NotDetected) 08/03/20 19:21 U Methamphetamines Scrn Not Detected (NotDetected) 08/03/20 19:21 U Benzodiazepines Scrn Not Detected (NotDetected) 08/03/20 19:21 Urine Cocaine Screen Not Detected (NotDetected) 08/03/20 19:21 U Marijuana (THC) Screen Detected (NotDetected) H 08/03/20 19:21 Coronavirus (PCR) Not Detected (Not Detected) 08/03/20 21:06 Vital Signs Temp 97.9 F 08/13/20 04:51 Pulse 75 08/13/20 04:51 Resp 16 08/13/20 04:51 BP 108/62 08/13/20 04:51 Pulse Ox 96 08/13/20 04:51 Intake & Output 08/12/20 08/13/20 08/13/20 18:59 06:59 18:59 Weight 100.7 kg Patient Condition at Discharge: Stable Plan - Discharge Summary Discharge Rx Participant: No New Discharge Prescriptions: New DULoxetine HCL [Cymbalta] 30 mg PO DAILY 30 Days maricruz. Divalproex ER [Depakote ER] 500 mg PO HS 30 Days tab.er.24h traZODone HCL [Desyrel] 200 mg PO HS 30 Days tab Oxybutynin Chloride [Ditropan] 5 mg PO DAILY 30 Days tab Paliperidone [Invega] 6 mg PO BID 30 Days tab.er.24 Furosemide [Lasix] 20 mg PO DAILY 30 Days #0 tab Melatonin 10 mg PO HS 30 Days tablet Levothyroxine Sodium [Synthroid] 50 mcg PO DAILY@0630 tab Acetaminophen Tab [Tylenol] 650 mg PO Q4HR PRN tab PRN Reason: Pain/Discomfort Albuterol Inhaler [Ventolin Hfa Inhaler] 2 puff INHALATION RT-QID PRN #1 puff PRN Reason: Shortness Of Breath Or Wheezing Discharge Medication List Acetaminophen Tab [Tylenol] 650 mg PO Q4HR PRN tab 08/13/20 [Rx] Albuterol Inhaler [Ventolin Hfa Inhaler] 2 puff INHALATION RT-QID PRN #1 puff 08/13/20 [Rx] DULoxetine HCL [Cymbalta] 30 mg PO DAILY 30 Days maricruz. 08/13/20 [Rx] Divalproex ER [Depakote ER] 500 mg PO HS 30 Days tab.er.24h 08/13/20 [Rx] Furosemide [Lasix] 20 mg PO DAILY 30 Days #0 tab 08/13/20 [Rx] Levothyroxine Sodium [Synthroid] 50 mcg PO DAILY@0630 tab 08/13/20 [Rx] Melatonin 10 mg PO HS 30 Days tablet 08/13/20 [Rx] Oxybutynin Chloride [Ditropan] 5 mg PO DAILY 30 Days tab 08/13/20 [Rx] Paliperidone [Invega] 6 mg PO BID 30 Days tab.er.24 08/13/20 [Rx] traZODone HCL [Desyrel] 200 mg PO HS 30 Days tab 08/13/20 [Rx] Follow up Appointment(s)/Referral(s): Psychological, [facility] [Other] - 08/19/20 3:00 pm (Therapist Marvel 08/19 @ 15:00 Dr Rubin 08/20 @ 18:15) Hans Mendoza MD [Primary Care Provider] - 1 Week Activity/Diet/Wound Care/Special Instructions: Activity and diet as tolerated. Avoid the use of street drugs and alcohol. Take all medications as prescribed. When you are in need of refills on your medications please contact your medical provider and/or outpatient psychiatrist to have this done. Please go to scheduled outpatient appointment for aftercare treatment. If symptoms return or become worse, call the crisis line at and/or go to the nearest emergency room for evaluation. Discharge Disposition: HOME SELF-CARE
== END 2020-08-13 15:40 | disposition home or self-care (01) | DRG 885 ==
LOC: EC 18:02 → 3MHU 22:22
PROVIDERS: ADMIT Psychiatry & Neurology Psychiatry; ATTEND Psychiatry & Neurology Psychiatry
DX: F25.0 Schizoaffective disorder, bipolar type (principal); F41.9 Anxiety disorder, unspecified; F17.210 Nicotine dependence, cigarettes, uncomplicated; F12.10 Cannabis abuse, uncomplicated; G47.00 Insomnia, unspecified; Z79.899 Other long term (current) drug therapy; T43.96XA Underdosing of unspecified psychotropic drug, initial encounter; Z91.128 Patient's intentional underdosing of medication regimen for other reason; E66.3 Overweight; Z68.38 Body mass index [BMI] 38.0-38.9, adult; Z71.51 Drug abuse counseling and surveillance of drug abuser; R23.8 Other skin changes; Z79.891 Long term (current) use of opiate analgesic; Z88.6 Allergy status to analgesic agent; Z88.5 Allergy status to narcotic agent; Z20.828 Contact with and (suspected) exposure to other viral communicable diseases
CPT/HCPCS: 80053; 80061; 80306; 82075; 83036; 84443; 85025; 99285

== ENCOUNTER 2021-02-21 17:41 | Inpatient (IN) | payer BC ==
[2021-02-21] MEDS ORDERED: ACETAMINOPHEN TAB 325 MG TAB PO STA (19:13)
--- NOTE | 2021-02-21 19:27 | ED ---
General Adult HPI - General Chief complaint: Fall Stated complaint: altered mental status Time Seen by Provider: 02/21/21 19:06 Source: EMS Mode of arrival: EMS Limitations: no limitations - History of Present Illness Initial comments: 56 year-old female patient presents to the emergency department for evaluation after having a fall. Apparently her daughter found her on the floor in the bathroom and called the ambulance. Patient does not recall falling. States the last thing she remembers is having difficulty getting up from her chair to go to the bathroom. Patient is reporting some left knee pain since the fall, but denies any other areas of pain. Denies any headache or neck pain. Denies chest or back pain. Denies any numbness, tingling, or new weakness to her extremities. States she does generally have some leg weakness. Wears a brief for inc ontinence. Patient denies any dizziness, visual disturbance, shortness of breath, abdominal pain, nausea, vomiting, or new difficulties with bowel movements or urination. States all she had to eat today was a few cookies. States she has not had much of an appetite. Did speak to daughter who reports that patient has been increasingly weak over the last several days. States that she has to help her get up from her chair and help to the bathroom which is unusual. States that she assisted her mother to the restroom today and when she took longer than usual to come out so she checked on her and found her on the floor face down. She was conscious but too weak to get up on her own. - Related Data Home Medications Medication Instructions Recorded Confirmed Albuterol Inhaler [Ventolin Hfa 2 puff INHALATION RT-Q4H PRN 02/21/21 02/21/21 Inhaler] Divalproex ER [Depakote ER] 500 mg PO BID 02/21/21 02/21/21 Ibuprofen [Motrin] 800 mg PO Q8H PRN 02/21/21 02/21/21 Oxybutynin Chloride [Ditropan] 5 mg PO BID 02/21/21 02/21/21 Paliperidone [Invega] 3 mg PO DAILY 02/21/21 02/21/21 Paliperidone [Invega] 6 mg PO DAILY 02/21/21 02/21/21 Previous Rx's Medication Instructions Recorded DULoxetine HCL [Cymbalta] 30 mg PO DAILY 30 Days capsule.dr 08/13/20 Furosemide [Lasix] 20 mg PO DAILY 30 Days #0 tab 08/13/20 Levothyroxine Sodium [Synthroid] 50 mcg PO DAILY@0630 tab 08/13/20 traZODone HCL [Desyrel] 200 mg PO HS 30 Days tab 08/13/20 Allergies Allergy/AdvReac Type Severity Reaction Status Date / Time acetaminophen [From Vicodin] Allergy Rash/Hives Verified 02/21/21 19:41 hydrocodone [From Vicodin] Allergy Rash/Hives Verified 02/21/21 19:41 Review of Systems ROS Statement: Those systems with pertinent positive or pertinent negative responses have been documented in the HPI. ROS Other: All systems not noted in ROS Statement are negative. Past Medical History Past Medical History: No Reported History History of Any Multi-Drug Resistant Organisms: None Reported Past Surgical History: Cardiac Valve Replacement Additional Past Surgical History / Comment(s): left ovary removed Past Psychological History: Schizoaffective Disorder, Schizophrenia Smoking Status: Current every day smoker Past Alcohol Use History: None Reported Past Drug Use History: Marijuana General Exam Limitations: no limitations General appearance: alert, in no apparent distress, other (Physical well- developed, well-nourished adult female patient in no acute distress. Vital signs upon presentation temperature 98.2F, pulse 109, respirations 17, blood pressure 106/70, pulse ox 94% on room air.) Head exam: Present: atraumatic, normocephalic, normal inspection Eye exam: Present: normal appearance, PERRL, EOMI. Absent: scleral icterus, conjunctival injection, nystagmus, periorbital swelling ENT exam: Present: normal exam, normal oropharynx, mucous membranes moist Respiratory exam: Present: normal lung sounds bilaterally. Absent: respiratory distress, wheezes, rales, rhonchi, stridor Cardiovascular Exam: Present: normal rhythm, tachycardia, normal heart sounds. Absent: systolic murmur, diastolic murmur, rubs, gallop, clicks GI/Abdominal exam: Present: soft, normal bowel sounds. Absent: distended, tenderness, guarding, rebound, rigid Extremities exam: Present: normal inspection, full ROM, tenderness (posterior), normal capillary refill, other (Skin to the left knee and leg is pink, warm, dry. Cap refill less than 3 seconds. Pedal and posttibial pulses 2+.). Absent: pedal edema, joint swelling, calf tenderness Back exam: Present: normal inspection, other (Nontender, no step-off, no deformity to firm midline palpation of the thoracic and lumbar vertebrae. Full range of motion without pain or limitation.). Absent: vertebral tenderness Neurological exam: Present: alert, oriented X3 (Oriented to person, place, date, and time.), CN II-XII intact Expanded Speech: Present: fluid speech Cranial nerves: EOM's Intact: Normal, Nystagmus: Normal Motor strength exam: RUE: 5, LUE: 5, RLE: 5, LLE: 5 Eye Response: (4) open spontaneously Motor Response: (6) obeys commands Verbal Response: (5) oriented Eliz Total: 15 Psychiatric exam: Present: normal affect, normal mood Skin exam: Present: warm, dry, intact, normal color. Absent: rash Course Vital Signs 02/21/21 02/22/21 17:45 00:15 Temperature 98.2 F Pulse Rate 109 H 85 Respiratory 17 20 Rate Blood Pressure 106/70 117/65 O2 Sat by Pulse 94 L 96 Oximetry EKG Findings - EKG Comments: EKG Findings:: EKG obtained at 2034 shows normal sinus rhythm with a ventricular rate of 80, IN interval 148, QR church 78, QT 348, QTC 41. No evidence of ST elevation or depression. Medical Decision Making - Medical Decision Making 56-year-old female patient presents to the emergency department today for evaluation after having a fall. She is reporting new left knee pain. Does not recall having the fall. Also is reporting progressive weakness over the last week. Decreased appetite. Labs reviewed and did reveal white blood cell count at 13.5, neutrophils 11.8, BUN 20, creatinine 1.09, AST 220, ALT 40. Troponin is 0.038. EKG showed no ST elevation or depression. Urinalysis showed a cloudy appearance with 1+ protein, large amount of blood, positive nitrite, large leukocyte esterase, 7 red blood cells, 71 white blood cells, few white blood cell clumps, many bacteria, rare mucous. CT brain C-spine was negative for any acute abnormalities. X-ray of the left knee was obtained and did show a proximal fibular fracture and tibial plateau fracture. Patient will be admitted for IV antibiotics for UTI. Serial troponins and consult cardiology. We will also consult orthopedics for evaluation of her fracture. Patient is agreeable with this plan. Case discussed with my attending Dr. Delgado. - Lab Data Result diagrams: 02/21/21 20:28 02/21/21 20:28 Lab Results 02/21/21 02/21/21 02/21/21 Range/Units 20:28 20:28 20:28 WBC 13.5 H (3.8-10.6) k/uL RBC 3.73 L (3.80-5.40) m/uL Hgb 12.2 (11.4-16.0) gm/dL Hct 35.8 (34.0-46.0) % MCV 96.0 (80.0-100.0) fL MCH 32.7 (25.0-35.0) pg MCHC 34.1 (31.0-37.0) g/dL RDW 13.9 (11.5-15.5) % Plt Count 136 L (150-450) k/uL MPV 6.5 Neutrophils % 87 % Lymphocytes % 5 % Monocytes % 6 % Eosinophils % 0 % Basophils % 0 % Neutrophils # 11.8 H (1.3-7.7) k/uL Lymphocytes # 0.7 L (1.0-4.8) k/uL Monocytes # 0.9 (0-1.0) k/uL Eosinophils # 0.0 (0-0.7) k/uL Basophils # 0.0 (0-0.2) k/uL Sodium 136 L (137-145) mmol/L Potassium 3.7 (3.5-5.1) mmol/L Chloride 102 (98-107) mmol/L Carbon Dioxide 25 (22-30) mmol/L Anion Gap 9 mmol/L BUN 20 H (7-17) mg/dL Creatinine 1.09 H (0.52-1.04) mg/dL Est GFR (CKD-EPI)AfAm 65 (>60 ml/min/1.73 sqM) Est GFR (CKD-EPI)NonAf 57 (>60 ml/min/1.73 sqM) Glucose 162 H (74-99) mg/dL Calcium 9.0 (8.4-10.2) mg/dL Magnesium 1.6 (1.6-2.3) mg/dL Total Bilirubin 0.5 (0.2-1.3) mg/dL AST 220 H (14-36) U/L ALT 40 H (4-34) U/L Alkaline Phosphatase 62 (38-126) U/L Troponin I 0.038 H* (0.000-0.034) ng/mL Total Protein 6.9 (6.3-8.2) g/dL Albumin 3.6 (3.5-5.0) g/dL - Radiology Data Radiology results: report reviewed, image reviewed 3 views of the left knee are obtained. Report was reviewed in its entirety. Impression by Dr. Garcia shows medial tibial plateau fracture. Fibula head fracture. CT brain C-spine without contrast was obtained. Report was reviewed in its en tirety. Impression by Dr. Garcia shows mild cervical atrophy. No acute intracranial abnormality. Spondylotic changes in the cervical spine. No fracture seen. Disposition Clinical Impression: Weakness, UTI (urinary tract infection), Elevated troponin, Left medial tibial plateau fracture, Fracture of left proximal fibula, Dehydration Disposition: ADMITTED IP TO THIS [facility] Condition: Serious Decision to Admit Reason: Admit from EC Decision Date: 02/21/21 Decision Time: 23:08
--- NOTE | 2021-02-21 19:47 | CT ---
EXAMINATION TYPE: CT brain bert fowler DATE OF EXAM: 02/21/2021 COMPARISON: None HISTORY: Fall today. CT DLP: 1636.3 mGycm Automated exposure control for dose reduction was used. The cervical vertebra have normal alignment. There is degenerative disc space narrowing at C5-6 and C 6-7. There is spurring of the endplates anteriorly and posteriorly throughout the cervical spine. The re is hypertrophic mild multilevel facet arthropathy. There is no compression fracture. Posterior edwin ments are intact. There is mild cerebral atrophy. There is no mass effect nor midline shift. There is no sign of intrac ranial hemorrhage. The calvarium is intact. There is no evidence of cerebral edema. IMPRESSION: Mild cerebral atrophy. No acute intracranial abnormality. Spondylotic changes in the cervical spine. No fracture seen.
--- NOTE | 2021-02-21 19:49 | XR ---
EXAMINATION TYPE: XR knee complete LT DATE OF EXAM: 02/21/2021 COMPARISON: NONE HISTORY: Pain TECHNIQUE: 3 views FINDINGS: There is a knee joint effusion. There is some deformity of the medial tibial plateau. There is a medial tibial plateau fracture. There is probably some central fragment depression. The lateral tibial condyle is intact. There is evidence of nondisplaced transverse fracture through the head of the fibula. IMPRESSION: Medial tibial plateau fracture. Fibula head fracture.
[2021-02-21 21:13] LABS: Basophils % (A) 0 %; Eosinophils % (A) 0 %; HCT 35.8 % (34.0-46.0); HGB 12.2 gm/dL (11.4-16.0); Lymphocytes # (A) 0.7 k/uL (1.0-4.8); Lymphocytes % (A) 5 %; MCH 32.7 pg (25.0-35.0); MCHC 34.1 g/dL (31.0-37.0); Mean Platelet Volume 6.5; Monocytes # (A) 0.9 k/uL (0-1.0); Monocytes % (A) 6 %; Neutrophils # (A) 11.8 k/uL (1.3-7.7); Neutrophils % (A) 87 %; Platelet Count 136 k/uL (150-450); RBC 3.73 m/uL (3.80-5.40); RDW 13.9 % (11.5-15.5); WBC 13.5 k/uL (3.8-10.6)
[2021-02-21 21:28] LABS: Magnesium 1.6 mg/dL (1.6-2.3); Potassium 3.7 mmol/L (3.5-5.1); Total Protein 6.9 g/dL (6.3-8.2)
[2021-02-21 21:29] LABS: Albumin 3.6 g/dL (3.5-5.0); Total Bilirubin 0.5 mg/dL (0.2-1.3)
[2021-02-21] MEDS ORDERED: SODIUM CHLORIDE 0.9% 1,000 ML IV ONE (21:32)
[2021-02-21 22:50] LABS: Appearance,Urine Cloudy (Clear); Bacteria,Urine Many /hpf; Bilirubin,Urine Negative (Negative); Blood,Urine Large (Negative); Color,Urine Yellow; Glucose,Urine (UA) Negative (Negative); Hyaline Casts,Urine 1 /lpf (0-2); Ketones,Urine Negative (Negative); Leukocyte Esterase,Urine Large (Negative); Mucus,Urine Rare /hpf; Nitrite,Urine Positive (Negative); Protein,Urine 1+ (Negative); RBC,Urine 7 /hpf (0-5); Specific Gravity,Urine 1.013 (1.001-1.035); Squamous Epithelial Cell,Urine <1 /hpf (0-4); Urobilinogen,Urine <2.0 mg/dL (<2.0); WBC,Urine 71 /hpf (0-5)
[2021-02-21] MEDS ORDERED: ASPIRIN 81 MG PO STA (23:08)
[2021-02-21] MEDS ORDERED: NALOXONE 0.4 MG/ML 1 ML VIAL IV PRN (23:52)
[2021-02-21] MEDS ORDERED: IBUPROFEN 600 MG TAB PO PRN (23:55)
[2021-02-22] MEDS ORDERED: DILTIAZEM DRIP BOLUS FROM BAG 1 MG SOLN IV ONE ×2 (01:27→03:01)
[2021-02-22] MEDS ORDERED: HEPARIN SODIUM 1,000 UN/ML (10ML VL) IV ONE (01:31)
[2021-02-22] MEDS: DILTIAZEM 125 MG in SODIUM CHLORIDE 0.9% 100 ML IV SCH ×3 (01:54→21:46)
[2021-02-22] MEDS: HEPARIN SOD,PORK IN 0.45% NACL 25,000 UNIT in 0.45% NACL 1 250ML.BAG IV SCH ×3 (01:54→21:45)
[2021-02-22] MEDS ORDERED: LORazepam 2 MG/ML INJ IV STA ×2 (03:02→03:59)
[2021-02-22 03:31] LABS: Basophils % (A) 0 %; Eosinophils # (A) 0.1 k/uL (0-0.7); Eosinophils % (A) 1 %; HCT 33.9 % (34.0-46.0); HGB 11.9 gm/dL (11.4-16.0); Lymphocytes # (A) 1.2 k/uL (1.0-4.8); Lymphocytes % (A) 11 %; MCH 33.5 pg (25.0-35.0); MCHC 35.1 g/dL (31.0-37.0); MCV 95.5 fL (80.0-100.0); Mean Platelet Volume 6.6; Monocytes # (A) 0.9 k/uL (0-1.0); Monocytes % (A) 8 %; Neutrophils # (A) 8.5 k/uL (1.3-7.7); Neutrophils % (A) 79 %; Platelet Count 126 k/uL (150-450); RBC 3.55 m/uL (3.80-5.40); RDW 13.2 % (11.5-15.5); WBC 10.8 k/uL (3.8-10.6)
[2021-02-22 08:19] LABS: INR 1.1 (<1.2); Partial Thromboplastin Time 27.7 sec (22.0-30.0); Prothrombin Time 11.5 sec (9.0-12.0)
[2021-02-22 08:44] LABS: African American GFR (CKD) 83 (>60 ml/min/1.73 sqM); Anion Gap 5 mmol/L; Blood Urea Nitrogen 16 mg/dL (7-17); Calcium 8.3 mg/dL (8.4-10.2); Carbon Dioxide 26 mmol/L (22-30); Chloride 106 mmol/L (98-107); Glucose 150 mg/dL (74-99); Non-African American GFR(CKD) 72 (>60 ml/min/1.73 sqM); Potassium 3.8 mmol/L (3.5-5.1); Sodium 137 mmol/L (137-145)
[2021-02-22] MEDS ORDERED: FUROSEMIDE 20 MG TAB PO SCH (09:00)
[2021-02-22] MEDS: ASPIRIN 325 MG TAB PO SCH (09:22)
[2021-02-22] MEDS: FAMOTIDINE 20 MG/2 ML VIAL IV SCH ×2 (09:23→22:17)
[2021-02-22] MEDS: OXYBUTYNIN CHLORIDE 5 MG TAB PO SCH ×2 (09:23→22:17)
[2021-02-22] MEDS: PALIPERIDONE 6 MG TAB.ER.24 PO SCH (09:26)
[2021-02-22] MEDS: PALIPERIDONE 3 MG TAB.ER.24 PO SCH (09:26)
--- NOTE | 2021-02-22 11:00 | CT ---
EXAMINATION TYPE: CT knee LT wo con DATE OF EXAM: 02/22/2021 COMPARISON: None HISTORY: Lt knee tibial plateau fracture CT DLP: 370.4 mGycm Automated exposure control for dose reduction was used. FINDINGS: There is a comminuted fracture with mild displacement and compression of the tibial plateau anteriorl y and medially. There is a fracture of the proximal fibula with minimal displacement There is mild osteophytic change of the medial lateral compartments of the knee. There is a small to moderate joint effusion IMPRESSION: 1. FRACTURE OF THE ANTERIOR MEDIAL TIBIAL PLATEAU DESCRIBED ABOVE. 2. FRACTURE OF THE PROXIMAL FIBULA. 3. [id number] JOINT EFFUSION. 4. MODERATE OSTEOARTHRITIS OF THE MEDIAL LATERAL COMPARTMENTS OF THE KNEE.
--- NOTE | 2021-02-22 11:29 | XR ---
EXAMINATION TYPE: XR chest 2V DATE OF EXAM: 02/22/2021 COMPARISON: NONE HISTORY: Shortness of breath TECHNIQUE: Frontal and lateral views of the chest are obtained. FINDINGS: There is diffuse interstitial and partial airspace opacity in the lungs bilaterally consis tent with an acute inflammatory/edematous process. There is no definite pleural effusion or pneumotho rax. The heart size is normal. The osseous structures are intact. IMPRESSION: Acute cardiopulmonary disease as described above. The findings could be consistent with acute pneumon ia or CHF.
[2021-02-22] MEDS: HEPARIN SODIUM 1,000 UN/ML (10ML VL) IV PRN (11:46)
--- NOTE | 2021-02-22 13:06 | P.CNOR ---
History of Present Illness - [facility] Consult date: 02/22/21 Requesting physician: Sharon Orellana Consult reason: fracture (Left tibial plateau fracture and left proximal fibular fracture) History of present illness: History of present illness: Patient is a 56-year-old female who is seen and examined at bedside for further evaluation of her left knee. Patient is significantly sleepy. She is arousable and will answer some questions but quickly falls back asleep. Yesterday she apparently sustained a fall and her daughter found her lying on the bathroom floor. She was brought to the hospital for further evaluation. X-ray imaging showed evidence of a left tibial plateau fracture and left proximal fibular fracture. We were consulted in regards to her left knee. Patient states at the bedside she does not have any significant pain at her left knee. Prior to being examined, a knee immobilizer has been placed over her left knee. CT imaging was also taken of her left knee. Patient is currently in the emergency department on hold for placement for cardiac observation. Nursing states patient has elevated troponins and had episode of atrial fibrillation. Patient is not currently complaining of any pain at the bedside currently. Patient was also found to have a urinary tract infection and is currently on IV antibiotics. Patient has been started on heparin and aspirin. Past Medical History Past Medical History: No Reported History History of Any Multi-Drug Resistant Organisms: None Reported Past Surgical History: Cardiac Valve Replacement Additional Past Surgical History / Comment(s): left ovary removed Past Psychological History: Schizoaffective Disorder, Schizophrenia Smoking Status: Current every day smoker Past Alcohol Use History: None Reported Past Drug Use History: Marijuana Medications and Allergies Home Medications Medication Instructions Recorded Confirmed Type DULoxetine HCL [Cymbalta] 30 mg PO DAILY 30 Days capsule. 08/13/20 02/21/21 Rx Furosemide [Lasix] 20 mg PO DAILY 30 Days #0 tab 08/13/20 02/21/21 Rx Levothyroxine Sodium [Synthroid] 50 mcg PO DAILY@0630 tab 08/13/20 02/21/21 Rx traZODone HCL [Desyrel] 200 mg PO HS 30 Days tab 08/13/20 02/21/21 Rx Albuterol Inhaler [Ventolin Hfa 2 puff INHALATION RT-Q4H PRN 02/21/21 02/21/21 History Inhaler] Divalproex ER [Depakote ER] 500 mg PO BID 02/21/21 02/21/21 History Ibuprofen [Motrin] 800 mg PO Q8H PRN 02/21/21 02/21/21 History Oxybutynin Chloride [Ditropan] 5 mg PO BID 02/21/21 02/21/21 History Paliperidone [Invega] 3 mg PO DAILY 02/21/21 02/21/21 History Paliperidone [Invega] 6 mg PO DAILY 02/21/21 02/21/21 History Allergies Allergy/AdvReac Type Severity Reaction Status Date / Time acetaminophen [From Vicodin] Allergy Rash/Hives Verified 02/21/21 19:41 hydrocodone [From Vicodin] Allergy Rash/Hives Verified 02/21/21 19:41 Physical Examination Physical Exam: Patient is asleep and is arousable but quickly falls back to sleep during physical examination and obtaining history Vital signs stable Adequate chest excursion with deep inspiration and expiration Knee immobilizer is intact over the left knee Knee immobilizer was removed and reapplied during physical examination No obvious bruising, erythema, or obvious sign of infection at the left knee No significant pain with palpation over the left fibular head, tibial plateau, or patella Patient does not follow commands to perform any active range of motion of the left lower extremity Vascular intact left lower extremity Difficult to determine any significant swelling specifically after left knee given the patient's body habitus Results Pertinent studies: CT of the left knee taken on 02/22/2021: Comminuted fracture with mild displacement and compression of the tibial plateau anteriorly and medially; fracture of the proximal fibula with minimal displacement; mild osteophytic change to the medial lateral compartments of the knee; small to moderate joint effusion X-ray of the left knee taken on 02/21/2021: Some bony deformity at the medial tibial plateau with fracture and some probable central fragment depression; nondisplaced transverse fracture through the head of the fibula - Labs Labs: Abnormal Lab Results - Last 24 Hours (Table) 02/21/21 02/21/21 02/21/21 Range/Units 20:28 20:28 20:28 WBC 13.5 H (3.8-10.6) k/uL RBC 3.73 L (3.80-5.40) m/uL Hct (34.0-46.0) % Plt Count 136 L (150-450) k/uL Neutrophils # 11.8 H (1.3-7.7) k/uL Lymphocytes # 0.7 L (1.0-4.8) k/uL Sodium 136 L (137-145) mmol/L BUN 20 H (7-17) mg/dL Creatinine 1.09 H (0.52-1.04) mg/dL Glucose 162 H (74-99) mg/dL Calcium (8.4-10.2) mg/dL AST 220 H (14-36) U/L ALT 40 H (4-34) U/L Troponin I 0.038 H* (0.000-0.034) ng/mL Urine Appearance (Clear) Urine Protein (Negative) Urine Blood (Negative) Urine Nitrite (Negative) Ur Leukocyte Esterase (Negative) Urine RBC (0-5) /hpf Urine WBC (0-5) /hpf Urine WBC Clumps (None) /hpf Urine Bacteria (None) /hpf Urine Mucus (None) /hpf 02/21/21 02/22/21 02/22/21 Range/Units Unknown 00:23 03:06 WBC (3.8-10.6) k/uL RBC (3.80-5.40) m/uL Hct (34.0-46.0) % Plt Count (150-450) k/uL Neutrophils # (1.3-7.7) k/uL Lymphocytes # (1.0-4.8) k/uL Sodium (137-145) mmol/L BUN (7-17) mg/dL Creatinine (0.52-1.04) mg/dL Glucose (74-99) mg/dL Calcium (8.4-10.2) mg/dL AST (14-36) U/L ALT (4-34) U/L Troponin I 0.049 H* 0.049 H* (0.000-0.034) ng/mL Urine Appearance Cloudy H (Clear) Urine Protein 1+ H (Negative) Urine Blood Large H (Negative) Urine Nitrite Positive H (Negative) Ur Leukocyte Esterase Large H (Negative) Urine RBC 7 H (0-5) /hpf Urine WBC 71 H (0-5) /hpf Urine WBC Clumps Few H (None) /hpf Urine Bacteria Many H (None) /hpf Urine Mucus Rare H (None) /hpf 02/22/21 02/22/21 Range/Units 03:06 07:47 WBC 10.8 H (3.8-10.6) k/uL RBC 3.55 L (3.80-5.40) m/uL Hct 33.9 L (34.0-46.0) % Plt Count 126 L (150-450) k/uL Neutrophils # 8.5 H (1.3-7.7) k/uL Lymphocytes # (1.0-4.8) k/uL Sodium (137-145) mmol/L BUN (7-17) mg/dL Creatinine (0.52-1.04) mg/dL Glucose 150 H (74-99) mg/dL Calcium 8.3 L (8.4-10.2) mg/dL AST (14-36) U/L ALT (4-34) U/L Troponin I (0.000-0.034) ng/mL Urine Appearance (Clear) Urine Protein (Negative) Urine Blood (Negative) Urine Nitrite (Negative) Ur Leukocyte Esterase (Negative) Urine RBC (0-5) /hpf Urine WBC (0-5) /hpf Urine WBC Clumps (None) /hpf Urine Bacteria (None) /hpf Urine Mucus (None) /hpf Microbiology - Last 24 Hours (Table) 02/21/21 Unknown Urine Culture - Preliminary Urine,Voided H & H 02/21/21 02/22/21 Range/Units 20:28 03:06 Hgb 12.2 11.9 (11.4-16.0) gm/dL Hct 35.8 33.9 L (34.0-46.0) % Coagulation 02/22/21 Range/Units 07:47 INR 1.1 (<1.2) Result Diagrams: 02/22/21 03:06 02/22/21 07:47 Assessment and Plan Assessment: Assessment: Left tibial plateau fracture Left proximal fibular fracture Status post fall Obesity of a BMI of 42.9 Atrial fibrillation Elevated troponins Urinary tract infection (1) Obesity Current Visit: Yes Status: Acute Code(s): E66.9 - OBESITY, UNSPECIFIED SNOMED Code(s): 318986501 (2) Elevated troponin Current Visit: Yes Status: Acute Code(s): R77.8 - OTHER SPECIFIED ABNORMA LITIES OF PLASMA PROTEINS SNOMED Code(s): 045677716 (3) Fracture of left proximal fibula Current Visit: Yes Status: Acute Code(s): S82.832A - OTH FRACTURE OF UPPER AND LOWER END OF LEFT FIBULA, INIT SNOMED Code(s): 70646716 (4) Left medial tibial plateau fracture Current Visit: Yes Status: Acute Code(s): S82.132A - DISP FX OF MEDIAL CONDYLE OF LEFT TIBIA, INIT FOR CLOS FX SNOMED Code(s): 702010045 (5) UTI (urinary tract infection) Current Visit: Yes Status: Acute Code(s): N39.0 - URINARY TRACT INFECTION, SITE NOT SPECIFIED SNOMED Code(s): 39155279 Plan: Plan: 1. Patient does have evidence of a left tibial plateau fracture and left proximal fibular fracture. Patient reportedly sustained a fall yesterday. At the bedside the patient is significantly sleepy but arousable and states she is not currently experiencing any specific pain in her left knee. A knee immobilizer is intact. We will currently plan to continue with conservative tr eatment given her other comorbidities including elevated troponins, atrial fibrillation, and urinary tract infection. We may be able to continue treating this conservatively outpatient as well and the patient may not require surgical intervention at her left knee. Patient should remain strict nonweightbearing on the left lower extremity. She should continue to keep her knee immobilizer intact at all times. Knee immobilizer may be open for bathing while lying down. Patient will be clear for discharge from an orthopedic standpoint once cleared by medicine and cardiology. Following discharge, we would plan to have the patient follow-up with Mayank Arauz PA-C or Dr. Jenaro Tripathi at [facility] in 1 week following discharge. 2. Patient is waiting for consultation with cardiology for her elevated troponins and atrial fibrillation 3. Patient will continue BC exam by medicine for her other medical diagnoses including urinary tract infection Time with Patient: Greater than 30 (Including obtaining history, physical examination, reviewing of imaging, and dictation.)
[2021-02-22] MEDS ORDERED: KETOROLAC 15 MG/ML 1 ML VIAL IVP PRN (15:09)
--- NOTE | 2021-02-22 15:19 | P.HPIM ---
History of Present Illness 56-year-old female came in after a fall. Patient had an x-ray of the left leg showed left tibial plateau fracture and left proximal fibular fracture. Patient presently has an immobilizer. Patient was evaluated by orthopedic surgery of unable to get anything history from the patient as patient is excessively drowsy and sleepy. Patient later went into atrial fibrillation which is a new onset atrial fibrillation for the patient. Was started on Cardizem drip, IV heparin. Patient is also found to have mildly elevated troponins. Patient has mildly abnormal urine, no fever mild leukocytosis are not believe patient has urinary tract infection antibiotics were discontinued at this time. Patient received the a dose of Rocephin patient had elevated liver enzymes AST and ALP, ratio of AST and ALP is consistent with alcohol liver disease alcoholic gastritis unknown whether patient is an alcoholic. We'll repeat liver enzymes no further workup will be done if there fairly stable or trended downwards. Review of Systems Unable to obtain due to her clinical condition. Past Medical History Past Medical History: No Reported History History of Any Multi-Drug Resistant Organisms: None Reported Past Surgical History: Cardiac Valve Replacement Additional Past Surgical History / Comment(s): left ovary removed Past Psychological History: Schizoaffective Disorder, Schizophrenia Smoking Status: Current every day smoker Past Alcohol Use History: None Reported Past Drug Use History: Marijuana Medications and Allergies Home Medications Medication Instructions Recorded Confirmed Type DULoxetine HCL [Cymbalta] 30 mg PO DAILY 30 Days capsule. 08/13/20 02/21/21 Rx Furosemide [Lasix] 20 mg PO DAILY 30 Days #0 tab 08/13/20 02/21/21 Rx Levothyroxine Sodium [Synthroid] 50 mcg PO DAILY@0630 tab 08/13/20 02/21/21 Rx traZODone HCL [Desyrel] 200 mg PO HS 30 Days tab 08/13/20 02/21/21 Rx Albuterol Inhaler [Ventolin Hfa 2 puff INHALATION RT-Q4H PRN 02/21/21 02/21/21 History Inhaler] Divalproex ER [Depakote ER] 500 mg PO BID 02/21/21 02/21/21 History Ibuprofen [Motrin] 800 mg PO Q8H PRN 02/21/21 02/21/21 History Oxybutynin Chloride [Ditropan] 5 mg PO BID 02/21/21 02/21/21 History Paliperidone [Invega] 3 mg PO DAILY 02/21/21 02/21/21 History Paliperidone [Invega] 6 mg PO DAILY 02/21/21 02/21/21 History Allergies Allergy/AdvReac Type Severity Reaction Status Date / Time acetaminophen [From Vicodin] Allergy Rash/Hives Verified 02/21/21 19:41 hydrocodone [From Vicodin] Allergy Rash/Hives Verified 02/21/21 19:41 Physical Exam Vitals: Vital Signs Temp Pulse Resp BP Pulse Ox 02/22/21 11:44 74 20 132/72 96 02/22/21 11:07 84 20 137/74 96 02/22/21 09:21 88 20 146/74 96 02/22/21 07:22 98.6 F 88 18 133/70 96 02/22/21 03:30 144 H 20 120/73 98 02/22/21 03:00 98.1 F 141 H 22 140/97 98 02/22/21 02:30 158 H 27 H 97 02/22/21 02:00 135 H 20 95/75 92 L 02/22/21 01:15 141 H 20 99/76 95 02/22/21 01:00 129 H 22 97 02/22/21 00:15 85 20 117/65 96 02/21/21 17:45 98.2 F 109 H 17 106/70 94 L Intake and Output 02/22/21 02/22/21 02/22/21 06:59 14:59 22:59 Intake Total 3.833 183.833 Output Total 600 Balance 3.833 -416.167 Intake: Intake, IV Titration 3.833 183.833 Amount Diltiazem 125 mg In 3.833 85 Sodium Chloride 0.9% 100 ml @ 5 MG/HR 5 mls/hr IV .Q24H NIESHA Rx#:[id number] Heparin Sod,Pork in 0.45% 98.833 NaCl 25,000 unit In 0.45 % NaCl 1 250ml.bag @ 8. 8185 UNITS/KG/HR 10 mls/ hr IV .Q24H NIESHA Rx#: [id number] Output: Urine 600 PHYSICAL EXAMINATION: GENERAL: Excessively sleepy unable to get any history from the patient is obese, not in any acute distress. Well developed, well nourished. HEENT: Pupils are round and equally reacting to light. EOMI. No scleral icterus. No conjunctival pallor. Normocephalic, atraumatic. No pharyngeal erythema. No thyromegaly. CARDIOVASCULAR: S1 and S2 present. No murmurs, rubs, or gallops. PULMONARY: Limited as patient doesn't follow commands ABDOMEN: Soft, nontender, nondistended, normoactive bowel sounds. No palpable organomegaly. MUSCULOSKELETAL: No joint swelling or deformity. EXTREMITIES: No cyanosis, clubbing, or pedal edema. NEUROLOGICAL: Limited as patient doesn't follow commands SKIN: No rashes. Results CBC & Chem 7: 02/22/21 03:06 02/22/21 07:47 Labs: Abnormal Lab Results - Last 24 Hours (Table) 02/21/21 02/21/21 02/21/21 Range/Units 20:28 20:28 20:28 WBC 13.5 H (3.8-10.6) k/uL RBC 3.73 L (3.80-5.40) m/uL Hct (34.0-46.0) % Plt Count 136 L (150-450) k/uL Neutrophils # 11.8 H (1.3-7.7) k/uL Lymphocytes # 0.7 L (1.0-4.8) k/uL APTT (22.0-30.0) sec Sodium 136 L (137-145) mmol/L BUN 20 H (7-17) mg/dL Creatinine 1.09 H (0.52-1.04) mg/dL Glucose 162 H (74-99) mg/dL Calcium (8.4-10.2) mg/dL AST 220 H (14-36) U/L ALT 40 H (4-34) U/L Troponin I 0.038 H* (0.000-0.034) ng/mL Urine Appearance (Clear) Urine Protein (Negative) Urine Blood (Negative) Urine Nitrite (Negative) Ur Leukocyte Esterase (Negative) Urine RBC (0-5) /hpf Urine WBC (0-5) /hpf Urine WBC Clumps (None) /hpf Urine Bacteria (None) /hpf Urine Mucus (None) /hpf 02/21/21 02/22/21 02/22/21 Range/Units Unknown 00:23 03:06 WBC (3.8-10.6) k/uL RBC (3.80-5.40) m/uL Hct (34.0-46.0) % Plt Count (150-450) k/uL Neutrophils # (1.3-7.7) k/uL Lymphocytes # (1.0-4.8) k/uL APTT (22.0-30.0) sec Sodium (137-145) mmol/L BUN (7-17) mg/dL Creatinine (0.52-1.04) mg/dL Glucose (74-99) mg/dL Calcium (8.4-10.2) mg/dL AST (14-36) U/L ALT (4-34) U/L Troponin I 0.049 H* 0.049 H* (0.000-0.034) ng/mL Urine Appearance Cloudy H (Clear) Urine Protein 1+ H (Negative) Urine Blood Large H (Negative) Urine Nitrite Positive H (Negative) Ur Leukocyte Esterase Large H (Negative) Urine RBC 7 H (0-5) /hpf Urine WBC 71 H (0-5) /hpf Urine WBC Clumps Few H (None) /hpf Urine Bacteria Many H (None) /hpf Urine Mucus Rare H (None) /hpf 02/22/21 02/22/21 02/22/21 Range/Units 03:06 07:47 14:19 WBC 10.8 H (3.8-10.6) k/uL RBC 3.55 L (3.80-5.40) m/uL Hct 33.9 L (34.0-46.0) % Plt Count 126 L (150-450) k/uL Neutrophils # 8.5 H (1.3-7.7) k/uL Lymphocytes # (1.0-4.8) k/uL APTT 45.6 H (22.0-30.0) sec Sodium (137-145) mmol/L BUN (7-17) mg/dL Creatinine (0.52-1.04) mg/dL Glucose 150 H (74-99) mg/dL Calcium 8.3 L (8.4-10.2) mg/dL AST (14-36) U/L ALT (4-34) U/L Troponin I (0.000-0.034) ng/mL Urine Appearance (Clear) Urine Protein (Negative) Urine Blood (Negative) Urine Nitrite (Negative) Ur Leukocyte Esterase (Negative) Urine RBC (0-5) /hpf Urine WBC (0-5) /hpf Urine WBC Clumps (None) /hpf Urine Bacteria (None) /hpf Urine Mucus (None) /hpf Microbiology - Last 24 Hours (Table) 02/21/21 Unknown Urine Culture - Preliminary Urine,Voided Assessment and Plan Plan: -Fall and that tubular fibular fracture: Further management as per orthopedic surgery patient will be started on Toradol for pain and avoid any opiates. -New-onset A. fib: Echo cardiac rhythm is being obtain cardiology evaluated the patient, heart rate is controlled on Cardizem. Presently Cardizem was discontinued. Cardiology evaluated the patient echo cardiac exam is being obtained -Elevated troponin secondary to mild acute renal failure and atrial fibrillation. -Drowsiness sleep penis and encephalopathy secondary to toxic encephalopathy from excess Ativan she received Ativan will be discontinued patient is irregular Ativan for agitation. -Schizoaffective disorder: Continue with the her psychiatric medications except for trazodone because of excessive sleepiness -Nicotine abuse -Mildly elevated liver enzymes AST and ALT ratio consistent with the alcoholic hepatitis We'll repeat liver enzymes again -Asymptomatic bacteriuria patient never complained of for her UTI symptoms when she was awakened came to the hospital I do not believe any to continue the antibiotics and leukocytosis is reactive and secondary to fall and fracture. -DVT prophylaxis: Lovenox -Obesity
--- NOTE | 2021-02-22 15:41 | P.CRDCN ---
History of Present Illness Consult date: 02/22/21 Requesting physician: Moy E Sheet Reason for Consult (text): Elevated troponin Chief complaint: weakness, fall at home History of present illness: This is a 56-year-old female patient with a past history of schizophrenia who presented to the emergency department after being found on the bathroom floor by her daughter. The patient has currently minimally responsive when asked if she was awake she did not her head yes that is nonverbal and did not attempt to answer any further questions. The HPI was obtained from the chart. Apparently patient has been having increasing bleeding more difficulty getting around at home and has been needing help to get up to go to the bathroom. The daughter assisted her mother to the bathroom yesterday and when she took longer than usual she went in to check on her and she was found on the floor. It is unclear whether the patient had a syncopal episode or not she was apparently awake when her daughter found her but was too weak to get up on her own. We were asked to see the patient in consultation for elevation of troponins. They came back at 0.038, 0.049 and 0.049. Patient has been found to be dehydrated with UTI. Initially EKG showed sinus mechanism she subsequently went into atrial fibrillation with rapid ventricular response and was initiated on IV heparin and Cardizem drip but has since converted back to sinus rhythm. This x-ray on admission showed her social and partial airspace opacity in the lungs bilaterally consistent with an acute inflammatory or eczematous process which could be consistent with acute pneumonia or CHF. X-ray of the left knee showed evidence of left tibial plateau fracture and a left proximal fibular fracture and orthopedics has been consulted. Computed tomography scan of the left knee showed comminuted fracture with mild displacement and compression of the tibial plateau anteriorly and medially; fracture of the proximal fibula with minimal displacement. She is currently on IV heparin and Cardizem as well as Lasix 20 mg by mouth daily, aspirin 325 mg by mouth daily, Levothyroxine 50 g daily, Desyrel and Invega. Past Medical History Past Medical History: No Reported History History of Any Multi-Drug Resistant Organisms: None Reported Past Surgical History: Cardiac Valve Replacement Additional Past Surgical History / Comment(s): left ovary removed Past Psychological History: Schizoaffective Disorder, Schizophrenia Smoking Status: Current every day smoker Past Alcohol Use History: None Reported Past Drug Use History: Marijuana Medications and Allergies Home Medications Medication Instructions Recorded Confirmed Type DULoxetine HCL [Cymbalta] 30 mg PO DAILY 30 Days capsule. 08/13/20 02/21/21 Rx Furosemide [Lasix] 20 mg PO DAILY 30 Days #0 tab 08/13/20 02/21/21 Rx Levothyroxine Sodium [Synthroid] 50 mcg PO DAILY@0630 tab 08/13/20 02/21/21 Rx traZODone HCL [Desyrel] 200 mg PO HS 30 Days tab 08/13/20 02/21/21 Rx Albuterol Inhaler [Ventolin Hfa 2 puff INHALATION RT-Q4H PRN 02/21/21 02/21/21 History Inhaler] Divalproex ER [Depakote ER] 500 mg PO BID 02/21/21 02/21/21 History Ibuprofen [Motrin] 800 mg PO Q8H PRN 02/21/21 02/21/21 History Oxybutynin Chloride [Ditropan] 5 mg PO BID 02/21/21 02/21/21 History Paliperidone [Invega] 3 mg PO DAILY 02/21/21 02/21/21 History Paliperidone [Invega] 6 mg PO DAILY 02/21/21 02/21/21 History Allergies Allergy/AdvReac Type Severity Reaction Status Date / Time acetaminophen [From Vicodin] Allergy Rash/Hives Verified 02/21/21 19:41 hydrocodone [From Vicodin] Allergy Rash/Hives Verified 02/21/21 19:41 Physical Exam Vitals: Vital Signs Temp Pulse Resp BP Pulse Ox 02/22/21 11:44 74 20 132/72 96 02/22/21 11:07 84 20 137/74 96 02/22/21 09:21 88 20 146/74 96 02/22/21 07:22 98.6 F 88 18 133/70 96 02/22/21 03:30 144 H 20 120/73 98 02/22/21 03:00 98.1 F 141 H 22 140/97 98 02/22/21 02:30 158 H 27 H 97 02/22/21 02:00 135 H 20 95/75 92 L 02/22/21 01:15 141 H 20 99/76 95 02/22/21 01:00 129 H 22 97 02/22/21 00:15 85 20 117/65 96 02/21/21 17:45 98.2 F 109 H 17 106/70 94 L Intake and Output 02/21/21 02/22/21 02/22/21 22:59 06:59 14:59 Intake Total 3.833 183.833 Output Total 600 Balance 3.833 -416.167 Intake: Intake, IV Titration 3.833 183.833 Amount Diltiazem 125 mg In 3.833 85 Sodium Chloride 0.9% 100 ml @ 5 MG/HR 5 mls/hr IV .Q24H [facility] Rx#:[id number] Heparin Sod,Pork in 0.45% 98.833 NaCl 25,000 unit In 0.45 % NaCl 1 250ml.bag @ 8. 8185 UNITS/KG/HR 10 mls/ hr IV .Q24H [facility] Rx#: [id number] Output: Urine 600 Other: Weight 113.398 kg PHYSICAL EXAMINATION: This is a 56-year-old female in no apparent distress at the time of my examination who is minimally responsive. VITAL SIGNS: Blood pressure 132/72, heart rate 74, respirations 20, temp 98.6F. Patient is 96 % on 4 L via nasal cannula. HEENT: Head is atraumatic, normocephalic. Pupils are equal, round. Sclerae anicteric. Conjunctivae are clear. Mucous membranes of the mouth are moist. Neck is supple. There is no elevated jugular venous pressure. No carotid bruit is heard. CHEST EXAMINATION: Clear to auscultation bilaterally during shallow respirations. No wheezes rales or rhonchi. Respirations even and nonlabored. HEART EXAMINATION: Heart regular, positive S1 and S2. No S3. No S4. No clicks, rubs or murmurs. ABDOMEN: Soft, obese nontender. Bowel sounds are heard. No organomegaly noted. EXTREMITIES: 2+ peripheral pulses with no evidence of peripheral edema and no calf tenderness noted. NEUROLOGIC EXAMINATION: Patient is drowsy, opens eyes and nods head but answers minimal yes and no questions and is nonverbal at the time of my exam. Results 02/22/21 03:06 02/22/21 07:47 Cardiac Enzymes 02/21/21 02/21/21 02/22/21 Range/Units 20:28 20:28 00:23 AST 220 H (14-36) U/L Troponin I 0.038 H* 0.049 H* (0.000-0.034) ng/mL 02/22/21 Range/Units 03:06 AST (14-36) U/L Troponin I 0.049 H* (0.000-0.034) ng/mL Coagulation 02/22/21 Range/Units 07:47 PT 11.5 (9.0-12.0) sec APTT 27.7 (22.0-30.0) sec CBC 02/21/21 02/22/21 Range/Units 20:28 03:06 WBC 13.5 H 10.8 H (3.8-10.6) k/uL RBC 3.73 L 3.55 L (3.80-5.40) m/uL Hgb 12.2 11.9 (11.4-16.0) gm/dL Hct 35.8 33.9 L (34.0-46.0) % Plt Count 136 L 126 L (150-450) k/uL Comprehensive Metabolic Panel 02/21/21 02/22/21 Range/Units 20:28 07:47 Sodium 136 L 137 (137-145) mmol/L Potassium 3.7 3.8 (3.5-5.1) mmol/L Chloride 102 106 (98-107) mmol/L Carbon Dioxide 25 26 (22-30) mmol/L BUN 20 H 16 (7-17) mg/dL Creatinine 1.09 H 0.90 (0.52-1.04) mg/dL Glucose 162 H 150 H (74-99) mg/dL Calcium 9.0 8.3 L (8.4-10.2) mg/dL AST 220 H (14-36) U/L ALT 40 H (4-34) U/L Alkaline Phosphatase 62 (38-126) U/L Total Protein 6.9 (6.3-8.2) g/dL Albumin 3.6 (3.5-5.0) g/dL Current Medications Generic Name Dose Route Start Last Admin Trade Name Freq PRN Reason Stop Dose Admin Acetaminophen 650 mg 02/21/21 23:55 Acetaminophen Tab 325 Mg Tab PO Q6HR PRN Fever and/ or Pain Aspirin 325 mg 02/22/21 09:00 02/22/21 09:22 Aspirin 325 Mg Tab PO 325 mg DAILY [facility] Administration Famotidine 20 mg 02/22/21 09:00 02/22/21 09:23 Famotidine 20 Mg/2 Ml Vial IV 20 mg Q12HR [facility] Administration Furosemide 20 mg 02/22/21 09:00 02/22/21 09:22 Furosemide 20 Mg Tab PO 20 mg DAILY [facility] Administration Heparin Sodium (Porcine) 0 unit 02/22/21 01:31 02/22/21 11:46 Heparin Sodium 1,000 Un/Ml (10ml Vl) IV 4,000 unit PER PROTOCOL PRN Administration Low PTT Protocol Ceftriaxone Sodium 1 gm/ 50 mls @ 100 mls/hr 02/23/21 01:00 Sodium Chloride IVPB Q24H [facility] Diltiazem HCl 125 mg/ Sodium 125 mls @ 5 mls/hr 02/22/21 01:30 02/22/21 11:10 Chloride IV 10 mg/hr .Q24H [facility] 10 mls/hr Administration 5 MG/HR Heparin Sodium/Sodium Chloride 250 mls @ 10 mls/hr 02/22/21 01:45 02/22/21 11:47 25,000 unit/ Sodium Chloride IV 11.46 units/kg/hr .Q24H [facility] 13 mls/hr Titration Protocol 8.8185 UNITS/KG/HR Ibuprofen 600 mg 02/21/21 23:55 Ibuprofen 600 Mg Tab PO TID PRN pain Levothyroxine Sodium 50 mcg 02/23/21 06:30 Levothyroxine 50 Mcg Tab PO DAILY@0630 [facility] Naloxone HCl 0.2 mg 02/21/21 23:52 Naloxone 0.4 Mg/Ml 1 Ml Vial IV Q2M PRN Opioid Reversal Oxybutynin Chloride 5 mg 02/22/21 09:00 02/22/21 09:23 Oxybutynin Chloride 5 Mg Tab PO 5 mg BID [facility] Administration Paliperidone 6 mg 02/22/21 09:00 02/22/21 09:26 Paliperidone 6 Mg Tab.Er.24 PO 6 mg DAILY [facility] Administration Paliperidone 3 mg 02/22/21 09:00 02/22/21 09:26 Paliperidone 3 Mg Tab.Er.24 PO 3 mg DAILY [facility] Administration Trazodone HCl 200 mg 02/22/21 21:00 Trazodone Hcl 100 Mg Tab PO HS [facility] Intake and Output 02/21/21 02/22/21 02/22/21 22:59 06:59 14:59 Intake Total 3.833 183.833 Output Total 600 Balance 3.833 -416.167 Intake: Intake, IV Titration 3.833 183.833 Amount Diltiazem 125 mg In 3.833 85 Sodium Chloride 0.9% 100 ml @ 5 MG/HR 5 mls/hr IV .Q24H [facility] Rx#:[id number] Heparin Sod,Pork in 0.45% 98.833 NaCl 25,000 unit In 0.45 % NaCl 1 250ml.bag @ 8. 8185 UNITS/KG/HR 10 mls/ hr IV .Q24H [facility] Rx#: [id number] Output: Urine 600 Other: Weight 113.398 kg 02/22/21 03:06 02/22/21 07:47 Assessment and Plan Assessment: #1 symptoms of weakness and fall, likely secondary to dehydration and urinary tract infection #2 elevated troponins not consistent with acute myocardial injury #3 paroxysmal atrial fibrillation, currently on IV heparin #4 urinary tract infection Plan: From cardiology's perspective we will continue IV heparin for now while un derlying dehydration and urinary tract infection or treated. Obtain a 2-D echo with Doppler study to assess cardiac structure and function. We will continue to follow the patient and decide whether long-term anticoagulation is appropriate and if further intervention for paroxysmal atrial fibrillation is needed. [employer] note has been reviewed, I agree with a documented findings and plan of care. Patient was seen and examined.
[2021-02-22] MEDS ORDERED: traZODone HCL 100 MG TAB PO SCH (21:00)
[2021-02-22] MEDS: ACETAMINOPHEN TAB 325 MG TAB PO PRN (22:17)
[2021-02-22] MEDS: IBUPROFEN 400 MG TAB PO PRN (23:59)
[2021-02-23] MEDS ORDERED: ACETAMINOPHEN IV (For NPO) 1,000 MG in EMPTY BAG 1 BAG IVPB ONE (00:12)
[2021-02-23 00:31] LABS: Glucose,Whole Blood 156 mg/dL (75-99)
[2021-02-23 01:08] LABS: Basophils % (A) 0 %; Eosinophils % (A) 1 %; HCT 28.7 % (34.0-46.0); HGB 10.5 gm/dL (11.4-16.0); Hyperchromasia Slight; Lymphocytes # (A) 1.2 k/uL (1.0-4.8); Lymphocytes % (A) 17 %; MCH 34.4 pg (25.0-35.0); MCHC 36.5 g/dL (31.0-37.0); MCV 94.2 fL (80.0-100.0); Mean Platelet Volume 6.6; Monocytes # (A) 0.6 k/uL (0-1.0); Monocytes % (A) 8 %; Neutrophils # (A) 5.1 k/uL (1.3-7.7); Neutrophils % (A) 72 %; Platelet Count 119 k/uL (150-450); RBC 3.04 m/uL (3.80-5.40); RDW 13.2 % (11.5-15.5); WBC 7.1 k/uL (3.8-10.6)
[2021-02-23 01:29] LABS: Albumin 2.9 g/dL (3.5-5.0); Calcium 8.4 mg/dL (8.4-10.2); Potassium 3.5 mmol/L (3.5-5.1); Total Bilirubin 0.7 mg/dL (0.2-1.3); Total Protein 6.1 g/dL (6.3-8.2)
[2021-02-23] MEDS: ENOXAPARIN 40 MG/0.4 ML SYRINGE SQ SCH (02:30)
[2021-02-23 06:44] LABS: INR 1.1 (<1.2); Prothrombin Time 11.4 sec (9.0-12.0)
[2021-02-23 06:54] LABS: Basophils % (A) 0 %; Eosinophils % (A) 1 %; HCT 28.2 % (34.0-46.0); Hyperchromasia Slight; Lymphocytes % (A) 15 %; MCH 33.4 pg (25.0-35.0); MCHC 35.5 g/dL (31.0-37.0); MCV 94.2 fL (80.0-100.0); Mean Platelet Volume 6.8; Monocytes # (A) 0.5 k/uL (0-1.0); Monocytes % (A) 9 %; Neutrophils # (A) 4.5 k/uL (1.3-7.7); Neutrophils % (A) 73 %; Platelet Count 131 k/uL (150-450); Poikilocytosis Slight; RDW 13.3 % (11.5-15.5); WBC 6.2 k/uL (3.8-10.6)
[2021-02-23 07:01] LABS: Albumin 2.8 g/dL (3.5-5.0); Calcium 8.4 mg/dL (8.4-10.2); Potassium 3.7 mmol/L (3.5-5.1); Total Bilirubin 0.8 mg/dL (0.2-1.3); Total Protein 5.9 g/dL (6.3-8.2)
[2021-02-23] MEDS: HEPARIN SODIUM 1,000 UN/ML (10ML VL) IV PRN (07:01)
[2021-02-23] MEDS: FAMOTIDINE 20 MG/2 ML VIAL IV SCH ×2 (08:54→21:41)
[2021-02-23] MEDS: OXYBUTYNIN CHLORIDE 5 MG TAB PO SCH ×2 (09:02→21:41)
[2021-02-23] MEDS: PALIPERIDONE 6 MG TAB.ER.24 PO SCH (09:02)
[2021-02-23] MEDS: LEVOTHYROXINE 50 MCG TAB PO SCH (09:02)
[2021-02-23] MEDS: ASPIRIN 325 MG TAB PO SCH (09:02)
[2021-02-23] MEDS: PALIPERIDONE 3 MG TAB.ER.24 PO SCH (09:03)
--- NOTE | 2021-02-23 11:25 | P.PN ---
Progress Note - Text Progress Note Date: 02/23/21 Orthopedics: History of present illness: Patient is a 56-year-old female who is seen and examined at bedside for further evaluation of her left knee. She is much more awake, alert, and oriented today. She does answer questions appropriately. She is known have sustained a fall on Wednesday. She was found by her daughter lying on the floor in the bathroom and was brought to [facility] for further evaluation. X-ray imaging showed evidence of a left tibial plateau fracture and left proximal fibular fracture. CT of the left knee was also performed. Patient states today she does have some mild pain in her left knee. She remains in bed. She continues to be in the emergency department room #8 waiting for placement to [facility]. She continues to be nonweightbearing on the left lower extremity. Her knee immobilizer is intact without difficulty. Patient continues to be seen by cardiology and medicine for other medical diagnoses. He is currently on a heparin drip. Cardiology is planning for a 2-D echo with Doppler. She is being treated for urinary tract infection. Physical Exam: Patient is much more awake, alert, and oriented today and is able to answer questions appropriately Vital signs appear stable Adequate chest excursion with deep inspiration and expiration Knee immobilizer is intact over the left knee Knee immobilizer was removed and reapplied during physical examination No obvious bruising, erythema, or obvious sign of infection at the left knee No significant pain with palpation over the left fibular head, tibial plateau, or patella Mild tenderness with palpation about the left knee Patient is able to wiggle toes and perform plantarflexion without difficulty She has some difficulty with dorsiflexion Vascular intact left lower extremity Difficult to determine any significant swelling specifically after left knee given the patient's body habitus Pertinent studies: CT of the left knee taken on 02/22/2021: Comminuted fracture with mild displacement and compression of the tibial plateau anteriorly and medially; fracture of the proximal fibula with minimal displacement; mild osteophytic change to the medial lateral compartments of the knee; small to moderate joint effusion X-ray of the left knee taken on 02/21/2021: Some bony deformity at the medial tibial plateau with fracture and some probable central fragment depression; nondisplaced transverse fracture through the head of the fibula Assessment: Left tibial plateau fracture Left proximal fibular fracture Status post fall Obesity of a BMI of 42.9 Atrial fibrillation Elevated troponins Urinary tract infection Plan: 1. We will continue with our plan as set forth yesterday. Patient does have evidence of a left tibial plateau fracture and left proximal fibular fracture. Patient reportedly sustained a fall Wednesday. Currently she states she does have some pain in her left knee but it is well controlled. A knee immobilizer is intact. We will currently plan to continue with conservative treatment given her other comorbidities including elevated troponins, atrial fibrillation, and urinary tract infection. We may be able to continue treating her fractures conservatively in the outpatient setting as well and the patient may not require surgical intervention at her left knee. Patient should remain strict nonweightbearing on the left lower extremity. She should continue to keep her knee immobilizer intact at all times. Knee immobilizer may be open for bathing while lying down. Patient will be clear for discharge from an orthopedic standpoint once cleared by medicine and cardiology. Following discharge, we would plan to have the patient follow-up with Mayank Arauz PA-C or Dr. Jenaro Tripathi at [facility] in 1 week following discharge. 2. Patient has been seen and examined by cardiology is currently planned to continue with IV heparin and we'll plan to obtain a 2-D echo with Doppler study 3. Patient will continue to be seen and examined by medicine for her other medical diagnoses including urinary tract infection
--- NOTE | 2021-02-23 12:36 | P.PN ---
Subjective 56-year-old female came in after a fall. Patient had an x-ray of the left leg showed left tibial plateau fracture and left proximal fibular fracture. Patient presently has an immobilizer. Patient was evaluated by orthopedic surgery of unable to get anything history from the patient as patient is excessively drowsy and sleepy. Patient later went into atrial fibrillation which is a new onset atrial fibrillation for the patient. Was started on Cardizem drip, IV heparin. Patient is also found to have mildly elevated troponins. Patient has mildly abnormal urine, no fever mild leukocytosis are not believe patient has urinary tract infection antibiotics were discontinued at this time. Patient received the a dose of Rocephin patient had elevated liver enzymes AST and ALP, ratio of AST and ALP is consistent with alcohol liver disease alcoholic gastritis unknown whether patient is an alcoholic. We'll repeat liver enzymes no further workup will be done if there fairly stable or trended downwards. 02/23/2021 Patient started having fevers today patient appears to be tired. Patient was on Rocephin. Patient urine cultures are showing gram-negative bacilli patient most probably has urinary tract infection. Patient remains on 5 mg of Cardizem presently sinus rhythm. Constitutional: Patient is tired Cardio vascular: denied any chest pain, palpitations Gastrointestinal denied any nausea vomiting Pulmonary: Denied any shortness of breath cough Neurologic denied any new focal deficits All inpatient medications were reviewed and appropriate changes in these medications as dictated in the interval history and assessment and plan. Objective - Vital Signs Vital signs: Vital Signs Temp 98.3 F 02/23/21 09:00 Pulse 75 02/23/21 11:25 Resp 18 02/23/21 11:25 BP 100/63 02/23/21 11:25 Pulse Ox 95 02/23/21 11:25 Intake & Output 02/22/21 02/23/21 02/23/21 18:59 06:59 18:59 Intake Total 276.783 305.291 Output Total 1600 420 Balance -1323.217 -114.709 Intake: Intake, IV Titration 276.783 305.291 Amount Diltiazem 125 mg In 85 150 Sodium Chloride 0.9% 100 ml @ 5 MG/HR 5 mls/hr IV .Q24H [facility] Rx#:[id number] Heparin Sod,Pork in 0.45% 191.783 155.291 NaCl 25,000 unit In 0.45 % NaCl 1 250ml.bag @ 8. 8185 UNITS/KG/HR 10 mls/ hr IV .Q24H [facility] Rx#: [id number] Output: Urine 1600 Other 420 - Exam PHYSICAL EXAMINATION: GENERAL: Excessively sleepy appears to be fatigued and tired, obese HEENT: Pupils are round and equally reacting to light. EOMI. No scleral icterus. No conjunctival pallor. Normocephalic, atraumatic. No pharyngeal erythema. No thyromegaly. CARDIOVASCULAR: S1 and S2 present. No murmurs, rubs, or gallops. PULMONARY: No wheezing clear to auscultation. Good air entry bilaterally Protonix ABDOMEN: Soft, nontender, nondistended, normoactive bowel sounds. No palpable or ganomegaly. MUSCULOSKELETAL: No joint swelling or deformity. EXTREMITIES: No cyanosis, clubbing, or pedal edema. NEUROLOGICAL: Doesn't appear to have any focal deficits SKIN: No rashes. - Labs CBC & Chem 7: 02/23/21 05:53 02/23/21 05:53 Labs: Abnormal Lab Results - Last 24 Hours (Table) 02/22/21 02/23/21 02/23/21 Range/Units 14:19 00:30 00:33 RBC 3.04 L (3.80-5.40) m/uL Hgb 10.5 L (11.4-16.0) gm/dL Hct 28.7 L (34.0-46.0) % Plt Count 119 L (150-450) k/uL APTT 45.6 H (22.0-30.0) sec Sodium (137-145) mmol/L Glucose (74-99) mg/dL POC Glucose (mg/dL) 156 H (75-99) mg/dL AST (14-36) U/L ALT (4-34) U/L Total Protein (6.3-8.2) g/dL Albumin (3.5-5.0) g/dL 02/23/21 02/23/21 02/23/21 Range/Units 00:33 05:53 05:53 RBC 3.00 L (3.80-5.40) m/uL Hgb 10.0 L (11.4-16.0) gm/dL Hct 28.2 L (34.0-46.0) % Plt Count 131 L (150-450) k/uL APTT 36.0 H (22.0-30.0) sec Sodium 135 L (137-145) mmol/L Glucose 135 H (74-99) mg/dL POC Glucose (mg/dL) (75-99) mg/dL AST 341 H (14-36) U/L ALT 99 H (4-34) U/L Total Protein 6.1 L (6.3-8.2) g/dL Albumin 2.9 L (3.5-5.0) g/dL 02/23/21 Range/Units 05:53 RBC (3.80-5.40) m/uL Hgb (11.4-16.0) gm/dL Hct (34.0-46.0) % Plt Count (150-450) k/uL APTT (22.0-30.0) sec Sodium (137-145) mmol/L Glucose 136 H (74-99) mg/dL POC Glucose (mg/dL) (75-99) mg/dL AST 277 H (14-36) U/L ALT 92 H (4-34) U/L Total Protein 5.9 L (6.3-8.2) g/dL Albumin 2.8 L (3.5-5.0) g/dL Microbiology - Last 24 Hours (Table) 02/21/21 Unknown Urine Culture - Preliminary Urine,Voided Gram Neg Bacilli Assessment and Plan Plan: -Fall and that tubular fibular fracture: Further management as per orthopedic surgery patient will be started on Toradol for pain and avoid any opiates. -Sepsis secondary to urinary tract infection: The patient will continued on Zosyn urine cultures are showing gram-negative bacilli -New-onset A. fib: Echo cardiac rhythm is being obtain cardiology evaluated the patient, heart rate is controlled on Cardizem. Cardiology evaluated the patient echo cardiac exam is being obtained -Elevated troponin secondary to mild acute renal failure and atrial fibrillation and sepsis. -Drowsiness sleepiness and encephalopathy secondary to toxic encephalopathy from urinary tract infection. -Schizoaffective disorder: Continue with the her psychiatric medications except for trazodone because of excessive sleepiness -Nicotine abuse -Mildly elevated liver enzymes AST and ALT ratio consistent with the alcoholic hepatitis little repeat liver enzymes are showing improvement -DVT prophylaxis: Lovenox -Obesity
--- NOTE | 2021-02-23 14:32 | P.PN ---
Subjective Progress Note Date: 02/23/21 This is a 56-year-old female patient with a past history of schizophrenia who presented to the emergency department after being found on the bathroom floor by her daughter. The patient has currently minimally responsive when asked if she was awake she did not her head yes that is nonverbal and did not attempt to answer any further questions. The HPI was obtained from the chart. Apparently patient has been having increasing bleeding more difficulty getting around at home and has been needing help to get up to go to the bathroom. The daughter assisted her mother to the bathroom yesterday and when she took longer than usual she went in to check on her and she was found on the floor. It is unclear whether the patient had a syncopal episode or not she was apparently awake when her daughter found her but was too weak to get up on her own. We were asked to see the patient in consultation for elevation of troponins. They came back at 0.038, 0.049 and 0.049. Patient has been found to be dehydrated with UTI. Initially EKG showed sinus mechanism she subsequently went into atrial fibrillation with rapid ventricular response and was initiated on IV heparin and Cardizem drip but has since converted back to sinus rhythm. This x-ray on admission showed her social and partial airspace opacity in the lungs bilaterally consistent with an acute inflammatory or eczematous process which could be consistent with acute pneumonia or CHF. X-ray of the left knee showed evidence of left tibial plateau fracture and a left proximal fibular fracture and orthopedics has been consulted. Computed tomography scan of the left knee showed comminuted fracture with mild displacement and compression of the tibial plateau anteriorly and medially; fracture of the proximal fibula with minimal displacement. She is currently on IV heparin and Cardizem as well as Lasix 20 mg by mouth daily, aspirin 325 mg by mouth daily, Levothyroxine 50 g daily, Desyrel and Invega. 02/23/2021 The patient was seen and examined resting comfortably in bed continues to be old. Overall she is much more awake and alert today. She is answering some questions. She is maintaining sinus mechanism. There has been no recurrence of proximal atrial fibrillation. She is currently still on IV Cardizem. Labs today showed a white blood cell count of 6.2, hemoglobin 10, potassium 3.7, BUN 14 and creatinine 0.89. She denies any complaints of chest discomfort, dizziness, lightheadedness, shortness of breath, orthopnea or PND. She does recall falling yesterday but does not recall much of the day. She feels she's been weaker at home. She is currently on IV antibiotics for UTI. She is being followed by orthopedics and at this time they are treating her conservatively with a brace. Her blood pressure has been on the low side ranging from 90s to low 100s systolic. Objective - Vital Signs Vital signs: Vital Signs Temp 98.3 F 02/23/21 09:00 Pulse 75 02/23/21 11:25 Resp 18 02/23/21 11:25 BP 100/63 02/23/21 11:25 Pulse Ox 95 02/23/21 11:25 Intake & Output 02/22/21 02/23/21 02/23/21 18:59 06:59 18:59 Intake Total 276.783 305.291 Output Total 1600 420 Balance -1323.217 -114.709 Intake: Intake, IV Titration 276.783 305.291 Amount Diltiazem 125 mg In 85 150 Sodium Chloride 0.9% 100 ml @ 5 MG/HR 5 mls/hr IV .Q24H NIESHA Rx#:[id number] Heparin Sod,Pork in 0.45% 191.783 155.291 NaCl 25,000 unit In 0.45 % NaCl 1 250ml.bag @ 8. 8185 UNITS/KG/HR 10 mls/ hr IV .Q24H NIESHA Rx#: [id number] Output: Urine 1600 Other 420 - Exam PHYSICAL EXAMINATION: HEENT: Head is atraumatic, normocephalic. Pupils equal, round. Neck is supple. There is no elevated jugular venous pressure. HEART EXAMINATION: Heart sounds regular, S1 and S2 normal. No murmur or gallop heard. CHEST EXAMINATION: Lungs are clear to auscultation and precussion. No chest wall tenderness is noted on palpation or with deep breathing. ABDOMEN: Soft, nontender. Bowel sounds are heard. No organomegaly noted. EXTREMITIES: 2+ peripheral pulses with no evidence of peripheral edema and no calf tenderness noted. Left leg immobilizer in place NEUROLOGIC patient is awake, alert and oriented x3. . - Labs CBC & Chem 7: 02/23/21 05:53 02/23/21 05:53 Labs: Abnormal Lab Results - Last 24 Hours (Table) 02/22/21 02/23/21 02/23/21 Range/Units 14:19 00:30 00:33 RBC 3.04 L (3.80-5.40) m/uL Hgb 10.5 L (11.4-16.0) gm/dL Hct 28.7 L (34.0-46.0) % Plt Count 119 L (150-450) k/uL APTT 45.6 H (22.0-30.0) sec Sodium (137-145) mmol/L Glucose (74-99) mg/dL POC Glucose (mg/dL) 156 H (75-99) mg/dL AST (14-36) U/L ALT (4-34) U/L Total Protein (6.3-8.2) g/dL Albumin (3.5-5.0) g/dL 02/23/21 02/23/21 02/23/21 Range/Units 00:33 05:53 05:53 RBC 3.00 L (3.80-5.40) m/uL Hgb 10.0 L (11.4-16.0) gm/dL Hct 28.2 L (34.0-46.0) % Plt Count 131 L (150-450) k/uL APTT 36.0 H (22.0-30.0) sec Sodium 135 L (137-145) mmol/L Glucose 135 H (74-99) mg/dL POC Glucose (mg/dL) (75-99) mg/dL AST 341 H (14-36) U/L ALT 99 H (4-34) U/L Total Protein 6.1 L (6.3-8.2) g/dL Albumin 2.9 L (3.5-5.0) g/dL 02/23/21 02/23/21 Range/Units 05:53 13:01 RBC (3.80-5.40) m/uL Hgb (11.4-16.0) gm/dL Hct (34.0-46.0) % Plt Count (150-450) k/uL APTT 39.0 H (22.0-30.0) sec Sodium (137-145) mmol/L Glucose 136 H (74-99) mg/dL POC Glucose (mg/dL) (75-99) mg/dL AST 277 H (14-36) U/L ALT 92 H (4-34) U/L Total Protein 5.9 L (6.3-8.2) g/dL Albumin 2.8 L (3.5-5.0) g/dL Microbiology - Last 24 Hours (Table) 02/21/21 Unknown Urine Culture - Preliminary Urine,Voided Gram Neg Bacilli Assessment and Plan Assessment: #1 symptoms of weakness and fall, likely secondary to dehydration and urinary tract infection #2 elevated troponins not consistent with acute myocardial injury #3 paroxysmal atrial fibrillation, maintaining sinus mechanism, [id number] VASc score of 1. #4 urinary tract infection Plan: From cardiology's perspective we will discontinue IV Cardizem. Obtain a 2-D echo with Doppler study to assess cardiac structure and function. We will continue to follow the patient and monitor for further episodes of paroxysmal atrial fibrillation to see if further intervention or anticoagulation is needed. STRATEGY EXECUTION CONSULTANT note has been reviewed, I agree with a documented findings and plan of care. Patient was seen and examined.
[2021-02-23] MEDS: IBUPROFEN 400 MG TAB PO PRN (17:56)
[2021-02-23] MEDS: ACETAMINOPHEN TAB 325 MG TAB PO PRN (17:57)
[2021-02-24] MEDS: LEVOTHYROXINE 50 MCG TAB PO SCH (05:56)
[2021-02-24] MEDS: FAMOTIDINE 20 MG/2 ML VIAL IV SCH ×2 (08:22→22:02)
[2021-02-24] MEDS: ASPIRIN 81 MG PO SCH (08:22)
[2021-02-24] MEDS: ENOXAPARIN 40 MG/0.4 ML SYRINGE SQ SCH (08:22)
[2021-02-24] MEDS: OXYBUTYNIN CHLORIDE 5 MG TAB PO SCH ×2 (08:22→21:39)
[2021-02-24] MEDS: PALIPERIDONE 3 MG TAB.ER.24 PO SCH (08:23)
[2021-02-24] MEDS: PALIPERIDONE 6 MG TAB.ER.24 PO SCH (08:23)
--- NOTE | 2021-02-24 11:43 | ECHOF ---
Referral Reason:abnormal troponin MEASUREMENTS -------- HEIGHT: 162.6 cm WEIGHT: 112.5 kg BP: 110/65 RVIDd: 4.4 cm (< 3.3) IVSd: 1.3 cm (0.6 - 1.1) LVIDd: 3.0 cm (3.9 - 5.3) LVPWd: 1.0 cm (0.6 - 1.1) IVSs: 1.2 cm LVIDs: 2.0 cm LVPWs: 1.4 cm LAESV Index (A-L): 20.70 ml/m Ao Diam: 3.6 cm (2.0 - 3.7) AV Cusp: 2.5 cm (1.5 - 2.6) MV EXCURSION: 11.532 mm (> 18.000) MV EF SLOPE: 50 mm/s (70 - 150) EPSS: 0.5 cm MV E Ranjith: 0.96 m/s MV DecT: 208 ms MV A Ranjith: 0.79 m/s MV E/A Ratio: 1.21 RAP: 5.00 mmHg RVSP: 40.05 mmHg FINDINGS -------- Sinus rhythm. This was a technically adequate study. The left ventricular size is normal. There is mild concentric left ventricular hypertrophy. Overa ll left ventricular systolic function is normal with, an EF between 55 - 60 %. The diastolic fillin g pattern is normal for the age of the patient 11.42. The right ventricle is moderate to severely enlarged. Normal LA size by volume 22+/-6 ml/m2. The right atrium is mildly enlarged. Interatrial and interventricular septum intact. Trace amount of aortic regurgitation. There is no evidence of aortic stenosis. There is trace mitral regurgitation. [id number]-uv-[id number] tricuspid regurgitation present. There is mild to moderate pulmonary hypertension. The right ventricular systolic pressure, as measured by Doppler, is 40.05mmHg. Trace/mild (physiologic) pulmonic regurgitation. The aortic root size is normal. IVC Not well visulized. There is no pericardial effusion. CONCLUSIONS -------- 1. The left ventricular size is normal. 2. There is mild concentric left ventricular hypertrophy. 3. Overall left ventricular systolic function is normal with, an EF between 55 - 60 %. 4. The diastolic filling pattern is normal for the age of the patient 11.42 5. The right ventricle is moderate to severely enlarged. 6. The right atrium is mildly enlarged. 7. Trace amount of aortic regurgitation. 8. There is trace mitral regurgitation. 9. Pbzl-[id number] tricuspid regurgitation present. 10. There is mild to moderate pulmonary hypertension. 11. The right ventricular systolic pressure, as measured by Doppler, is 40.05mmHg. 12. Trace/mild (physiologic) pulmonic regurgitation. SHEET ROLLER OPERATOR: Adrianne Hussein RDCS
[2021-02-24 11:48] LABS: ALT 86 U/L (4-34); AST 195 U/L (14-36); African American GFR (CKD) >90 (>60 ml/min/1.73 sqM); Albumin 2.8 g/dL (3.5-5.0); Alkaline Phosphatase 42 U/L (38-126); Anion Gap 2 mmol/L; Blood Urea Nitrogen 14 mg/dL (7-17); Calcium 8.4 mg/dL (8.4-10.2); Carbon Dioxide 29 mmol/L (22-30); Chloride 105 mmol/L (98-107); Glucose 132 mg/dL (74-99); Non-African American GFR(CKD) >90 (>60 ml/min/1.73 sqM); Potassium 3.6 mmol/L (3.5-5.1); Sodium 136 mmol/L (137-145); Total Bilirubin 0.6 mg/dL (0.2-1.3)
--- NOTE | 2021-02-24 12:37 | P.PN ---
Subjective Progress Note Date: 02/24/21 HISTORY OF PRESENT ILLNESS: This is a 56-year-old female patient with a past history of schizophrenia who presented to the emergency department after being found on the bathroom floor by her daughter. The patient has currently minimally responsive when asked if she was awake she did not her head yes that is nonverbal and did not attempt to answer any further questions. The HPI was obtained from the chart. Apparently patient has been having increasing bleeding more difficulty getting around at home and has been needing help to get up to go to the bathroom. The daughter assisted her mother to the bathroom yesterday and when she took longer than usual she went in to check on her and she was found on the floor. It is unclear whether the patient had a syncopal episode or not she was apparently awake when her daughter found her but was too weak to get up on her own. We were asked to see the patient in consultation for elevation of troponins. They came back at 0.038, 0.049 and 0.049. Patient has been found to be dehydrated with UTI. Initially EKG showed sinus mechanism she subsequently went into atrial fibrillation with rapid ventricular response and was initiated on IV heparin and Cardizem drip but has since converted back to sinus rhythm. This x-ray on admis baudilio showed her social and partial airspace opacity in the lungs bilaterally consistent with an acute inflammatory or eczematous process which could be consistent with acute pneumonia or CHF. X-ray of the left knee showed evidence of left tibial plateau fracture and a left proximal fibular fracture and orthopedics has been consulted. Computed tomography scan of the left knee showed comminuted fracture with mild displacement and compression of the tibial plateau anteriorly and medially; fracture of the proximal fibula with minimal displacement. She is currently on IV heparin and Cardizem as well as Lasix 20 mg by mouth daily, aspirin 325 mg by mouth daily, Levothyroxine 50 g daily, Desyrel and Invega. 02/23/2021 The patient was seen and examined resting comfortably in bed continues to be old. Overall she is much more awake and alert today. She is answering some questions. She is maintaining sinus mechanism. There has been no recurrence of proximal atrial fibrillation. She is currently still on IV Cardizem. Labs today showed a white blood cell count of 6.2, hemoglobin 10, potassium 3.7, BUN 14 and creatinine 0.89. She denies any complaints of chest discomfort, dizziness, lightheadedness, shortness of breath, orthopnea or PND. She does recall falling yesterday but does not recall much of the day. She feels she's been weaker at home. She is currently on IV antibiotics for UTI. She is being followed by orthopedics and at this time they are treating her conservatively with a brace. Her blood pressure has been on the low side ranging from 90s to low 100s systolic. 02/24/2021 Patient examined this morning at the bedside. Patient denies chest pain or pressure. She denies shortness of breath. Denies palpitations. Patient has not had further episodes of atrial fibrillation. Vital signs stable. PHYSICAL EXAM: VITAL SIGNS: Reviewed. GENERAL: Well-developed in no acute distress. NECK: Supple. No JVD or thyromegaly LUNGS: Respirations even and unlabored. Lungs diminished bilaterally. HEART: Regular rate and rhythm. S1 and S2 heard. EXTREMITIES: Normal range of motion. No clubbing or cyanosis. Peripheral pulses intact. Left leg immobilizer noted. ASSESSMENT: #1 symptoms of weakness and fall, likely secondary to dehydration and urinary tract infection #2 elevated troponins not consistent with acute myocardial injury #3 paroxysmal atrial fibrillation, maintaining sinus mechanism, [id number] VASc score of 1. #4 urinary tract infection 5. Possible syncope PLAN: Continue telemetry monitoring Continue current cardiac medications Obtain D-Dimer Patient to have a 30 day event monitor at time of discharge Further recommendations pending patient course Nurse practitioner note has been reviewed by physician. Signing provider agrees with the documented findings, assessment, and plan of care. Objective - Vital Signs Vital signs: Vital Signs Temp 99.0 F 02/24/21 11:35 Pulse 70 02/24/21 11:35 Resp 18 02/24/21 11:35 BP 119/62 02/24/21 11:35 Pulse Ox 100 02/24/21 11:35 Intake & Output 02/23/21 02/24/21 02/24/21 18:59 06:59 18:59 Intake Total 480 Output Total 1825 900 Balance -1345 -900 Weight 112.5 kg Intake: Oral 480 Output: Urine 1825 900 Other: Voiding Method Indwelling Catheter Indwelling Catheter # Bowel Movements 1 - Labs CBC & Chem 7: 02/23/21 05:53 02/24/21 10:43 Labs: Abnormal Lab Results - Last 24 Hours (Table) 02/23/21 02/24/21 02/24/21 Range/Units 13:01 10:43 10:43 APTT 39.0 H (22.0-30.0) sec D-Dimer 3.57 H (<0.60) mg/L FEU Sodium 136 L (137-145) mmol/L Glucose 132 H (74-99) mg/dL AST 195 H (14-36) U/L ALT 86 H (4-34) U/L Total Protein 6.0 L (6.3-8.2) g/dL Albumin 2.8 L (3.5-5.0) g/dL Microbiology - Last 24 Hours (Table) 02/21/21 Unknown Urine Culture - Final Urine,Voided Escherichia coli
--- NOTE | 2021-02-24 14:35 | CT ---
EXAMINATION TYPE: CT chest angio for PE DATE OF EXAM: 02/24/2021 COMPARISON: Chest x-ray 2 days ago. HISTORY: Fractured left knee, elevated d-dimer; recent injury. CT DLP: 474.1 mGycm Automated exposure control for dose reduction was used. CONTRAST: CT Chest for pulmonary embolism performed with with IV Contrast, patient injected with 100 mL of Isov ue 300. FINDINGS: LUNGS: Peripheral reticulation and intralobular septal thickening changes bilaterally are identified. Exam is suboptimal as patient unable to hold breath. There were some areas of groundglass opacity. T here is honeycombing in the lower lungs. No pleural effusion or pneumothorax identified. Low lung vol umes. MEDIASTINUM: There is contrast in right and left heart system but no convincing CT evidence for acute pulmonary embolism. Satisfactory enhancement of the thoracic aorta without aneurysm or dissection. T here are prominent bilateral hilar lymph nodes. There are prominent with Vicky subcentimeter mediastin al lymph nodes in the prevascular space, AP window, subcarinal, and para carinal levels. Tiny pericar dial effusion is seen anterior inferior aspect. No cardiomegaly. OTHER: Cholecystectomy clips noted on localizer. IMPRESSION: Chronic parenchymal fibrotic changes greatest in the bases where there is honeycombing. A reas of groundglass opacity could reflect multifocal edema and/or infiltrates. Correlate clinically. Reactive thoracic adenopathy felt present. No CT evidence for acute pulmonary embolism.
[2021-02-25] MEDS: LEVOTHYROXINE 50 MCG TAB PO SCH (05:51)
[2021-02-25 08:30] LABS: HCT 26.8 % (34.0-46.0); HGB 9.5 gm/dL (11.4-16.0); MCH 34.1 pg (25.0-35.0); MCHC 35.5 g/dL (31.0-37.0); Mean Platelet Volume 6.9; Platelet Count 147 k/uL (150-450); Poikilocytosis Slight; RBC 2.79 m/uL (3.80-5.40); RDW 13.9 % (11.5-15.5)
[2021-02-25] MEDS: ENOXAPARIN 40 MG/0.4 ML SYRINGE SQ SCH (08:32)
[2021-02-25] MEDS: OXYBUTYNIN CHLORIDE 5 MG TAB PO SCH ×2 (08:32→20:48)
[2021-02-25] MEDS: ASPIRIN 81 MG PO SCH (08:32)
[2021-02-25] MEDS: IBUPROFEN 400 MG TAB PO PRN (08:32)
[2021-02-25] MEDS: FAMOTIDINE 20 MG/2 ML VIAL IV SCH (08:33)
[2021-02-25] MEDS: PALIPERIDONE 3 MG TAB.ER.24 PO SCH (08:34)
[2021-02-25] MEDS: PALIPERIDONE 6 MG TAB.ER.24 PO SCH (08:34)
[2021-02-25 08:42] LABS: African American GFR (CKD) >90 (>60 ml/min/1.73 sqM); Anion Gap 6 mmol/L; Blood Urea Nitrogen 14 mg/dL (7-17); Calcium 8.5 mg/dL (8.4-10.2); Carbon Dioxide 23 mmol/L (22-30); Chloride 109 mmol/L (98-107); Glucose 112 mg/dL (74-99); Non-African American GFR(CKD) 86 (>60 ml/min/1.73 sqM); Potassium 3.8 mmol/L (3.5-5.1); Sodium 138 mmol/L (137-145)
[2021-02-25 10:05] LABS: Eosinophils # (M) 0.25 k/uL (0-0.7); Lymphocytes # (M) 1.15 k/uL (1.0-4.8); Neutrophils % (M) 64 %; Nucleated Red Blood Cells 0 /100 WBC (0-0); Total Cells Counted 100
[2021-02-25 10:06] LABS: Polychromasia Present
[2021-02-25 10:07] LABS: Anisocytosis (M) Present
--- NOTE | 2021-02-25 10:27 | P.PN ---
Subjective Progress Note Date: 02/24/21 Principal diagnosis: Fall and that tubular fibular fracture 56-year-old female came in after a fall. Patient had an x-ray of the left leg showed left tibial plateau fracture and left proximal fibular fracture. Patient presently has an immobilizer. Patient was evaluated by orthopedic surgery of unable to get anything history from the patient as patient is excessively drowsy and sleepy. Patient later went into atrial fibrillation which is a new onset atrial fibrillation for the patient. Was started on Cardizem drip, IV heparin. Patient is also found to have mildly elevated troponins. Patient has mildly abnormal urine, no fever mild leukocytosis are not believe patient has urinary tract infection antibiotics were discontinued at this time. Patient received the a dose of Rocephin patient had elevated liver enzymes AST and ALP, ratio of AST and ALP is consistent with alcohol liver disease alcoholic gastritis unknown whether patient is an alcoholic. We'll repeat liver enzymes no further workup will be done if there fairly stable or trended downwards. 02/23/2021 Patient started having fevers today patient appears to be tired. Patient was on Rocephin. Patient urine cultures are showing gram-negative bacilli patient most probably has urinary tract infection. Patient remains on 5 mg of Cardizem presently sinus rhythm. 02/24/2021 Patient is currently resting in the bed comfortably. No complaints of chest pain or worsening shortness of breath. Patient is being continued on ceftriaxone for E. coli urinary tract infection.Denied any complaints of nausea vomiting or abdominal pain or diarrhea. Hemodynamically stable. Cardiology is on board. Arranging for 30 day event monitor prior to discharge due to fall on admission. Patient was found have elevated d-dimer. CTA chest showed no evidence of PE. Chronic parenchymal fibrotic changes greatest in the bases where there is honeycombing. Areas of groundglass opacity could reflect multifocal alvaro a/infiltrates. Patient is currently on room air. Laboratory data showed WBC 6.2 hemoglobin 10.0 and platelets 131 Sodium 136 potassium 3.6 BUN 14 and creatinine 0.73 AST trending down to 195 and ALT trending down to 86. Constitutional: No fever no chills. Mild generalized weakness. Cardio vascular: denied any chest pain, palpitations Gastrointestinal denied any nausea vomiting Pulmonary: Denied any shortness of breath cough Neurologic denied any new focal deficits All inpatient medications were reviewed and appropriate changes in these medications as dictated in the interval history and assessment and plan. Objective - Vital Signs Vital signs: Vital Signs Temp 98.9 F 02/24/21 04:00 Pulse 72 02/24/21 04:00 Resp 16 02/24/21 04:00 BP 110/65 02/24/21 04:00 Pulse Ox 100 02/24/21 04:00 Intake & Output 02/23/21 02/24/21 02/24/21 18:59 06:59 18:59 Intake Total 480 Output Total 1825 Balance -1345 Weight 112.5 kg Intake: Oral 480 Output: Urine 1825 Other: Voiding Method Indwelling Catheter # Bowel Movements 1 - Exam PHYSICAL EXAMINATION: GENERAL: Excessively sleepy appears to be fatigued and tired, obese HEENT: Pupils are round and equally reacting to light. EOMI. No scleral icterus. No conjunctival pallor. Normocephalic, atraumatic. No pharyngeal erythema. No thyromegaly. CARDIOVASCULAR: S1 and S2 present. No murmurs, rubs, or gallops. PULMONARY: No wheezing clear to auscultation. Good air entry bilaterally Protonix ABDOMEN: Soft, nontender, nondistended, normoactive bowel sounds. No palpable organomegaly. MUSCULOSKELETAL: No joint swelling or deformity. EXTREMITIES: No cyanosis, clubbing, or pedal edema. NEUROLOGICAL: Doesn't appear to have any focal deficits SKIN: No rashes. - Labs CBC & Chem 7: 02/25/21 07:53 02/25/21 07:53 Labs: Abnormal Lab Results - Last 24 Hours (Table) 02/23/21 Range/Units 13:01 APTT 39.0 H (22.0-30.0) sec Microbiology - Last 24 Hours (Table) 02/21/21 Unknown Urine Culture - Final Urine,Voided Escherichia coli Assessment and Plan Assessment: -Fall and that tubular fibular fracture: Conservative management as per orthopedic surgery. started on Toradol for pain and avoid any opiates. Follow- up as an outpatient. -Sepsis secondary to urinary tract infection: The patient will continued on ceftriaxone. urine cultures are showing gram-negative bacilliE. coli. -New-onset A. fib: Paroxysmal. Echo cardiac rhythm is being obtain cardiology evaluated the patient, heart rate is controlled on Cardizem. Cardiology is on board. 2-D echo cardiac exam was done. [id number] VASc score of 1 -Elevated troponin secondary to mild acute renal failure and atrial fibrillation and sepsis. -Drowsiness sleepiness and encephalopathy secondary to toxic encephalopathy from urinary tract infection. Improved now. -Bibasilar fibrotic lung changes with honeycombing. Outpatient pulmonary follo w-up. -Schizoaffective disorder: Continue with the her psychiatric medications except for trazodone because of excessive sleepiness -Nicotine abuse -Mildly elevated liver enzymes AST and ALT ratio consistent with the alcoholic hepatitis little repeat liver enzymes are showing improvement -DVT prophylaxis: Lovenox -Obesity Time with Patient: Greater than 30
--- NOTE | 2021-02-25 11:07 | P.PN ---
Subjective Progress Note Date: 02/25/21 HISTORY OF PRESENT ILLNESS: This is a 56-year-old female patient with a past history of schizophrenia who presented to the emergency department after being found on the bathroom floor by her daughter. The patient has currently minimally responsive when asked if she was awake she did not her head yes that is nonverbal and did not attempt to answer any further questions. The HPI was obtained from the chart. Apparently patient has been having increasing bleeding more difficulty getting around at home and has been needing help to get up to go to the bathroom. The daughter assisted her mother to the bathroom yesterday and when she took longer than usual she went in to check on her and she was found on the floor. It is unclear whether the patient had a syncopal episode or not she was apparently awake when her daughter found her but was too weak to get up on her own. We were asked to see the patient in consultation for elevation of troponins. They came back at 0.038, 0.049 and 0.049. Patient has been found to be dehydrated with UTI. Initially EKG showed sinus mechanism she subsequently went into atrial fibrillation with rapid ventricular response and was initiated on IV heparin and Cardizem drip but has since converted back to sinus rhythm. This x-ray on admis baudilio showed her social and partial airspace opacity in the lungs bilaterally consistent with an acute inflammatory or eczematous process which could be consistent with acute pneumonia or CHF. X-ray of the left knee showed evidence of left tibial plateau fracture and a left proximal fibular fracture and orthopedics has been consulted. Computed tomography scan of the left knee showed comminuted fracture with mild displacement and compression of the tibial plateau anteriorly and medially; fracture of the proximal fibula with minimal displacement. She is currently on IV heparin and Cardizem as well as Lasix 20 mg by mouth daily, aspirin 325 mg by mouth daily, Levothyroxine 50 g daily, Desyrel and Invega. 02/23/2021 The patient was seen and examined resting comfortably in bed continues to be old. Overall she is much more awake and alert today. She is answering some questions. She is maintaining sinus mechanism. There has been no recurrence of proximal atrial fibrillation. She is currently still on IV Cardizem. Labs today showed a white blood cell count of 6.2, hemoglobin 10, potassium 3.7, BUN 14 and creatinine 0.89. She denies any complaints of chest discomfort, dizziness, lightheadedness, shortness of breath, orthopnea or PND. She does recall falling yesterday but does not recall much of the day. She feels she's been weaker at home. She is currently on IV antibiotics for UTI. She is being followed by orthopedics and at this time they are treating her conservatively with a brace. Her blood pressure has been on the low side ranging from 90s to low 100s systolic. 02/24/2021 Patient examined this morning at the bedside. Patient denies chest pain or pressure. She denies shortness of breath. Denies palpitations. Patient has not had further episodes of atrial fibrillation. Vital signs stable. 02/25/2021 Patient examined this morning at the bedside. Patient denies chest pain or pressure. She denies shortness of breath. Patient was found to have elevated d-dimer yesterday. Patient underwent CT of the chest which was negative for pulmonary embolus and. Patient remains in sinus mechanism and has had no further recurrence of atrial fibrillation. Vital signs stable. Blood pressure 117/53. Heart rate in the 70s. She is on room air with oxygen saturations greater than 92%. She is afebrile. PHYSICAL EXAM: VITAL SIGNS: Reviewed. GENERAL: Well-developed in no acute distress. NECK: Supple. No JVD or thyromegaly LUNGS: Respirations even and unlabored. Lungs diminished bilaterally. HEART: Regular rate and rhythm. S1 and S2 heard. EXTREMITIES: Normal range of motion. No clubbing or cyanosis. Peripheral pulses intact. Left leg immobilizer noted. ASSESSMENT: #1 symptoms of weakness and fall, likely secondary to dehydration and urinary tract infection #2 elevated troponins not consistent with acute myocardial injury #3 paroxysmal atrial fibrillation, maintaining sinus mechanism, [id number] VASc score of 1. #4 urinary tract infection 5. Possible syncope PLAN: Continue telemetry monitoring Continue current cardiac medications Orders placed for 30 day event monitor Patient is stable for discharge from a cardiac standpoint Patient to follow up on an outpatient basis with Dr. Hebert Nurse practitioner note has been reviewed by physician. Signing provider agrees with the documented findings, assessment, and plan of care. Objective - Vital Signs Vital signs: Vital Signs Temp 98.3 F 02/25/21 08:00 Pulse 77 02/25/21 08:00 Resp 16 02/25/21 08:00 BP 117/53 02/25/21 08:00 Pulse Ox 90 L 02/25/21 08:22 Intake & Output 02/24/21 02/25/21 02/25/21 18:59 06:59 18:59 Intake Total 180 Output Total 1575 1000 Balance -1395 -1000 Weight 147 kg Intake: Oral 180 Output: Urine 1575 1000 Other: Voiding Method Indwelling Catheter Indwelling Catheter Indwelling Catheter - Labs CBC & Chem 7: 02/25/21 07:53 02/25/21 07:53 Labs: Abnormal Lab Results - Last 24 Hours (Table) 02/24/21 02/24/21 02/25/21 Range/Units 10:43 10:43 07:53 RBC 2.79 L (3.80-5.40) m/uL Hgb 9.5 L (11.4-16.0) gm/dL Hct 26.8 L (34.0-46.0) % Plt Count 147 L (150-450) k/uL D-Dimer 3.57 H (<0.60) mg/L FEU Sodium 136 L (137-145) mmol/L Chloride (98-107) mmol/L Glucose 132 H (74-99) mg/dL AST 195 H (14-36) U/L ALT 86 H (4-34) U/L Total Protein 6.0 L (6.3-8.2) g/dL Albumin 2.8 L (3.5-5.0) g/dL 02/25/21 Range/Units 07:53 RBC (3.80-5.40) m/uL Hgb (11.4-16.0) gm/dL Hct (34.0-46.0) % Plt Count (150-450) k/uL D-Dimer (<0.60) mg/L FEU Sodium (137-145) mmol/L Chloride 109 H (98-107) mmol/L Glucose 112 H (74-99) mg/dL AST (14-36) U/L ALT (4-34) U/L Total Protein (6.3-8.2) g/dL Albumin (3.5-5.0) g/dL
[2021-02-25] MEDS: FAMOTIDINE 20 MG TAB PO SCH (20:48)
[2021-02-25 23:01] VITALS: TEMP 98.6
[2021-02-26] MEDS: LEVOTHYROXINE 50 MCG TAB PO SCH (06:29)
[2021-02-26] MEDS: FAMOTIDINE 20 MG TAB PO SCH (08:46)
[2021-02-26] MEDS: ASPIRIN 81 MG PO SCH (08:46)
[2021-02-26] MEDS: ENOXAPARIN 40 MG/0.4 ML SYRINGE SQ SCH (08:46)
[2021-02-26] MEDS: OXYBUTYNIN CHLORIDE 5 MG TAB PO SCH (08:46)
[2021-02-26] MEDS: PALIPERIDONE 3 MG TAB.ER.24 PO SCH (08:47)
[2021-02-26] MEDS: PALIPERIDONE 6 MG TAB.ER.24 PO SCH (08:47)
[2021-02-26] MEDS: IBUPROFEN 400 MG TAB PO PRN (08:49)
[2021-02-26 09:00] VITALS: RESP 16
--- NOTE | 2021-02-26 09:47 | P.PN ---
Subjective Progress Note Date: 02/25/21 Principal diagnosis: Fall and that tubular fibular fracture 56-year-old female came in after a fall. Patient had an x-ray of the left leg showed left tibial plateau fracture and left proximal fibular fracture. Patient presently has an immobilizer. Patient was evaluated by orthopedic surgery of unable to get anything history from the patient as patient is excessively drowsy and sleepy. Patient later went into atrial fibrillation which is a new onset atrial fibrillation for the patient. Was started on Cardizem drip, IV heparin. Patient is also found to have mildly elevated troponins. Patient has mildly abnormal urine, no fever mild leukocytosis are not believe patient has urinary tract infection antibiotics were discontinued at this time. Patient received the a dose of Rocephin patient had elevated liver enzymes AST and ALP, ratio of AST and ALP is consistent with alcohol liver disease alcoholic gastritis unknown whether patient is an alcoholic. We'll repeat liver enzymes no further workup will be done if there fairly stable or trended downwards. 02/23/2021 Patient started having fevers today patient appears to be tired. Patient was on Rocephin. Patient urine cultures are showing gram-negative bacilli patient most probably has urinary tract infection. Patient remains on 5 mg of Cardizem presently sinus rhythm. 02/24/2021 Patient is currently resting in the bed comfortably. No complaints of chest pain or worsening shortness of breath. Patient is being continued on ceftriaxone for E. coli urinary tract infection.Denied any complaints of nausea vomiting or abdominal pain or diarrhea. Hemodynamically stable. Cardiology is on board. Arranging for 30 day event monitor prior to discharge due to fall on admission. Patient was found have elevated d-dimer. CTA chest showed no evidence of PE. Chronic parenchymal fibrotic changes greatest in the bases where there is honeycombing. Areas of groundglass opacity could reflect multifocal alvaro a/infiltrates. Patient is currently on room air. Laboratory data showed WBC 6.2 hemoglobin 10.0 and platelets 131 Sodium 136 potassium 3.6 BUN 14 and creatinine 0.73 AST trending down to 195 and ALT trending down to 86. 02/25/2021 Patient is currently resting in bed comfortably. Saturating well on room air. No evidence of PE as per CT angiogram of the chest. Currently patient is on room air. No complaints of chest pain. No leg swelling. No headache or dizziness or lightheadedness. 30-day Event monitor was ordered by cardiology prior to discharge. Patient is being continued antibiotics involve urinary tract infection. Awaiting other agent for possible transfer to rehab. Current medications reviewed. Constitutional: No fever no chills. Mild generalized weakness. Cardio vascular: denied any chest pain, palpitations Gastrointestinal denied any nausea vomiting Pulmonary: Denied any shortness of breath cough Neurologic denied any new focal deficits All inpatient medications were reviewed and appropriate changes in these medications as dictated in the interval history and assessment and plan. Objective - Vital Signs Vital signs: Vital Signs Temp 98.3 F 02/25/21 08:00 Pulse 74 02/25/21 16:00 Resp 16 02/25/21 16:00 BP 124/62 02/25/21 16:00 Pulse Ox 95 02/25/21 20:21 Intake & Output 02/25/21 02/25/21 02/26/21 06:59 18:59 06:59 Intake Total 820 Output Total 1000 2200 Balance -1000 -1380 Weight 147 kg Intake: Intake, IV Titration 100 Amount cefTRIAXone 2 gm In 100 Sodium Chloride 0.9% 50 ml @ 100 mls/hr IVPB Q24HR [facility] Rx#:[id number] Oral 720 Output: Urine 1000 2200 Other: Voiding Method Indwelling Catheter Indwelling Catheter - Exam PHYSICAL EXAMINATION: GENERAL: Excessively sleepy appears to be fatigued and tired, obese HEENT: Pupils are round and equally reacting to light. EOMI. No scleral icterus. No conjunctival pallor. Normocephalic, atraumatic. No pharyngeal erythema. No thyromegaly. CARDIOVASCULAR: S1 and S2 present. No murmurs, rubs, or gallops. PULMONARY: No wheezing clear to auscultation. Good air entry bilaterally Protonix ABDOMEN: Soft, nontender, nondistended, normoactive bowel sounds. No palpable organomegaly. MUSCULOSKELETAL: No joint swelling or deformity. EXTREMITIES: No cyanosis, clubbing, or pedal edema. NEUROLOGICAL: Doesn't appear to have any focal deficits SKIN: No rashes. - Labs CBC & Chem 7: 02/25/21 07:53 02/25/21 07:53 Labs: Abnormal Lab Results - Last 24 Hours (Table) 02/25/21 02/25/21 Range/Units 07:53 07:53 RBC 2.79 L (3.80-5.40) m/uL Hgb 9.5 L (11.4-16.0) gm/dL Hct 26.8 L (34.0-46.0) % Plt Count 147 L (150-450) k/uL Chloride 109 H (98-107) mmol/L Glucose 112 H (74-99) mg/dL Assessment and Plan Assessment: -Fall and that tubular fibular fracture: Conservative management as per orthopedic surgery. started on Toradol for pain and avoid any opiates. Follow- up as an outpatient. -Sepsis secondary to urinary tract infection: The patient will continued on ceftriaxone. urine cultures are showing gram-negative bacilliE. coli. -New-onset A. fib: Paroxysmal. Echo cardiac rhythm is being obtain cardiology evaluated the patient, heart rate is controlled on Cardizem. Cardiology is on board. 2-D echo cardiac exam was done. [id number] VASc score of 1 -Elevated troponin secondary to mild acute renal failure and atrial fibrillation and sepsis. -Drowsiness sleepiness and encephalopathy secondary to toxic encephalopathy from urinary tract infection. Improved now. -Bibasilar fibrotic lung changes with honeycombing. Outpatient pulmonary follow-up. -Schizoaffective disorder: Continue with the her psychiatric medications except for trazodone because of excessive sleepiness -Nicotine abuse -Mildly elevated liver enzymes AST and ALT ratio consistent with the alcoholic hepatitis little repeat liver enzymes are showing improvement -DVT prophylaxis: Lovenox -Obesity Time with Patient: Greater than 30
--- NOTE | 2021-02-26 15:37 | P.DS ---
Providers Date of admission: 02/22/21 13:19 Expected date of discharge: 02/26/21 Attending physician: Moy Vásquez MD Consults: 02/21/21 23:53 Consult Physician Routine Consulting Provider: Cathy Tripathi Consult Reason/Comments: Left tibial plateau and proximal fibula fracture Do you want consulting provider notified?: Yes Primary care physician: [facility] Course: Discharge diagnosis -Status post Fall and Left tibial plateau fracture and Left proximal fibular fracture: Conservative management as per orthopedic surgery. started on Toradol for pain and avoid any opiates. Follow-up as an outpatient with orthopedic surgery. Placed on event monitor due to fall and rule out arrhythmia. -Sepsis secondary to urinary tract infection: The patient will continued on ceftriaxone. urine cultures are showing gram-negative bacilliE. coli. -New-onset A. fib: Paroxysmal. Echo cardiac rhythm is being obtain cardiology evaluated the patient, heart rate is controlled on Cardizem. Cardiology is on board. 2-D echo cardiac exam was done. [id number] VASc score of 1 -Elevated troponin secondary to mild acute renal failure and atrial fibrillation and sepsis. -Drowsiness sleepiness and encephalopathy secondary to toxic encephalopathy from urinary tract infection. Improved now. -Bibasilar fibrotic lung changes with honeycombing. Outpatient pulmonary follow-up. -Schizoaffective disorder: Continue with the her psychiatric medications except for trazodone because of excessive sleepiness -Nicotine abuse -Mildly elevated liver enzymes AST and ALT ratio consistent with the alcoholic hepatitis little repeat liver enzymes are showing improvement -DVT prophylaxis: Lovenox -Obesity Hospital course 56-year-old female came in after a fall. Patient had an x-ray of the left leg showed left tibial plateau fracture and left proximal fibular fracture. Patient presently has an immobilizer. Patient was evaluated by orthopedic surgery of unable to get anything history from the patient as patient is excessively drowsy and sleepy. Patient later went into atrial fibrillation which is a new onset atrial fibrillation for the patient. Was started on Cardizem drip, IV heparin. Patient is also found to have mildly elevated troponins. Patient has mildly abnormal urine, no fever mild leukocytosis are not believe patient has urinary tract infection antibiotics were discontinued at this time. Patient received the a dose of Rocephin patient had elevated liver enzymes AST and ALP, ratio of AST and ALP is consistent with alcohol liver disease alcoholic gastritis unknown whether patient is an alcoholic. We'll repeat liver enzymes no further workup will be done if there fairly stable or trended downwards. 02/23/2021 Patient started having fevers today patient appears to be tired. Patient was on Rocephin. Patient urine cultures are showing gram-negative bacilli patient most probably has urinary tract infection. Patient remains on 5 mg of Cardizem pre sently sinus rhythm. 02/24/2021 Patient is currently resting in the bed comfortably. No complaints of chest pain or worsening shortness of breath. Patient is being continued on ceftriaxone for E. coli urinary tract infection.Denied any complaints of nausea vomiting or abdominal pain or diarrhea. Hemodynamically stable. Cardiology is on board. Arranging for 30 day event monitor prior to discharge due to fall on admission. Patient was found have elevated d-dimer. CTA chest showed no evidence of PE. Chronic parenchymal fibrotic changes greatest in the bases where there is honeycombing. Areas of groundglass opacity could reflect multifocal edema/infiltrates. Patient is currently on room air. Laboratory data showed WBC 6.2 hemoglobin 10.0 and platelets 131 Sodium 136 potassium 3.6 BUN 14 and creatinine 0.73 AST trending down to 195 and ALT trending down to 86. 02/25/2021 Patient is currently resting in bed comfortably. Saturating well on room air. No evidence of PE as per CT angiogram of the chest. Currently patient is on room air. No complaints of chest pain. No leg swelling. No headache or dizziness or lightheadedness. 30-day Event monitor was ordered by cardiology prior to discharge. Patient is being continued antibiotics involve urinary tract infection. Awaiting other agent for possible transfer to rehab. 02/26/2021 Patient is currently still in the bed comfortably. Saturating well on room air. No complaints of chest pain or shortness of breath. No arrhythmia noted. Patient was placed on 30 day event monitor by cardiology. Otherwise patient will complete antibiotic course for urinary tract infection. Patient is being discharged to rehab in stable condition. PHYSICAL EXAMINATION: Patient is lying in the bed comfortably, no acute distress, awake alert and oriented.. HEENT: Normocephalic. Neck is supple. Pupils reactive. Nostrils clear. Oral cavity is moist. Ears reveal no drainage. Neck reveals no JVD, carotid bruits, or thyromegaly. CHEST EXAMINATION: Trachea is central. Symmetrical expansion. Lung wright clear to auscultation and percussion. CARDIAC: Normal S1, S2 with no gallops. No murmurs ABDOMEN: Soft. Bowel sounds normal. No organomegaly. No abdominal bruits. Extremities: reveal no edema. No clubbing or cyanosis Neurologically awake, alert, oriented x3 with well-coordinated movements. No focal deficits noted Skin: No rash or skin lesions. Psychiatric: Coperative. Nonsuicidal Musculoskeletal: No joint swelling or deformity. Vital Signs - 24 hr 02/25/21 02/25/21 02/25/21 16:00 20:00 20:21 Temperature 98.6 F Pulse Rate [ 74 72 Pulse Oximetery ] Respiratory 16 18 Rate Blood Pressure 124/62 115/57 [Left Arm] O2 Sat by Pulse 96 93 L 95 Oximetry 02/26/21 02/26/21 02/26/21 00:00 04:00 08:00 Temperature Pulse Rate [ 78 83 85 Pulse Oximetery ] Respiratory 18 18 16 Rate Blood Pressure 125/71 123/76 117/75 [Left Arm] O2 Sat by Pulse 93 L 95 Oximetry 02/26/21 12:00 Temperature Pulse Rate [ 74 Pulse Oximetery ] Respiratory 16 Rate Blood Pressure 121/79 [Left Arm] O2 Sat by Pulse 97 Oximetry Total time taken greater than 35 minutes including 18 minutes for counseling and coordination of care. Patient Condition at Discharge: Fair Plan - Discharge Summary New Discharge Prescriptions: New Cefuroxime Axetil [Ceftin] 500 mg PO BID 3 Days #6 tab Aspirin 81 mg PO DAILY #30 chew Continue DULoxetine HCL [Cymbalta] 30 mg PO DAILY 30 Days capsule. Levothyroxine Sodium [Synthroid] 50 mcg PO DAILY@0630 tab Albuterol Inhaler [Ventolin Hfa Inhaler] 2 puff INHALATION RT-Q4H PRN PRN Reason: Shortness Of Breath Or Wheezing Divalproex ER [Depakote ER] 500 mg PO BID Paliperidone [Invega] 6 mg PO DAILY Oxybutynin Chloride [Ditropan] 5 mg PO BID Paliperidone [Invega] 3 mg PO DAILY Discontinued traZODone HCL [Desyrel] 200 mg PO HS 30 Days tab Furosemide [Lasix] 20 mg PO DAILY 30 Days #0 tab Ibuprofen [Motrin] 800 mg PO Q8H PRN PRN Reason: Pain Discharge Medication List DULoxetine HCL [Cymbalta] 30 mg PO DAILY 30 Days capsule. 08/13/20 [Rx] Levothyroxine Sodium [Synthroid] 50 mcg PO DAILY@0630 tab 08/13/20 [Rx] Albuterol Inhaler [Ventolin Hfa Inhaler] 2 puff INHALATION RT-Q4H PRN 02/21/21 [History] Divalproex ER [Depakote ER] 500 mg PO BID 02/21/21 [History] Oxybutynin Chloride [Ditropan] 5 mg PO BID 02/21/21 [History] Paliperidone [Invega] 3 mg PO DAILY 02/21/21 [History] Paliperidone [Invega] 6 mg PO DAILY 02/21/21 [History] Aspirin 81 mg PO DAILY #30 chew 02/25/21 [Rx] Cefuroxime Axetil [Ceftin] 500 mg PO BID 3 Days #6 tab 02/25/21 [Rx] Follow up Appointment(s)/Referral(s): Mayank Arauz PAC [PHYSICIAN SERVICE DEVELOPER] - 1 Week (Patient may follow-up with Mayank Arauz PA-C or Dr. Jenaro Tripathi at [facility] in 1 week following discharge. ) Hans Mendoza MD [Primary Care Provider] - 1-2 days Keo Mcintosh MD [STAFF PHYSICIAN] - 1 Week Activity/Diet/Wound Care/Special Instructions: 1. Remain strict nonweightbearing on the left lower extremity 2. Keep knee immobilizer intact at all times 3. Knee immobilizer may be open for bathing while lying maria eugenia Discharge Disposition: TRANSFER TO SNF/ECF
[2021-02-26 17:04] VITALS: BP 120/81; PULSE 81
== END 2021-02-26 17:20 | DRG 871 ==
LOC: EC 17:41 → 6NMEDSUR 22:27 → OBSVTOIN 02-22 13:19 → 6NMEDSUR 02-22 14:15 → 3SCARD 02-22 17:03
PROVIDERS: ADMIT Internal Medicine; ATTEND Internal Medicine
DX: A41.51 Sepsis due to Escherichia coli [E. coli] (principal); G92 Toxic encephalopathy; N17.9 Acute kidney failure, unspecified; Z68.43 Body mass index [BMI] 50.0-59.9, adult; N39.0 Urinary tract infection, site not specified; S82.142A Displaced bicondylar fracture of left tibia, initial encounter for closed fracture; F25.9 Schizoaffective disorder, unspecified; S82.832A Other fracture of upper and lower end of left fibula, initial encounter for closed fracture; E66.9 Obesity, unspecified; Z20.822 Contact with and (suspected) exposure to COVID-19; K29.20 Alcoholic gastritis without bleeding; K70.10 Alcoholic hepatitis without ascites; E86.0 Dehydration; R32 Unspecified urinary incontinence; R77.8 Other specified abnormalities of plasma proteins; F17.200 Nicotine dependence, unspecified, uncomplicated; Z79.890 Hormone replacement therapy; Z79.899 Other long term (current) drug therapy; Z95.2 Presence of prosthetic heart valve; Z90.721 Acquired absence of ovaries, unilateral; Z98.890 Other specified postprocedural states; W19.XXXA Unspecified fall, initial encounter; Z88.5 Allergy status to narcotic agent; Y92.031 Bathroom in apartment as the place of occurrence of the external cause; I48.0 Paroxysmal atrial fibrillation; J84.10 Pulmonary fibrosis, unspecified
CPT/HCPCS: 36415; 70450; 71046; 71275; 72125; 80048; 80053; 81001; 83605; 83735; 83880; 84443; 84484; 85025; 85379; 85610; 85730; 87077; 87086; 87186; 87635; 93005; 93270; 93306; 94760; 96360; 99285

== ENCOUNTER 2021-03-24 20:03 | Emergency (ER) | payer BC ==
[2021-03-24 20:09] VITALS: PULSE 90; RESP 18; TEMP 98.4
[2021-03-24 21:30] LABS: Appearance,Urine Turbid (Clear); Bacteria,Urine Rare /hpf; Bilirubin,Urine Negative (Negative); Blood,Urine Large (Negative); Color,Urine Yellow; Glucose,Urine (UA) Negative (Negative); Ketones,Urine Negative (Negative); Leukocyte Esterase,Urine Large (Negative); Nitrite,Urine Positive (Negative); PH, Urine 6.5 (5.0-8.0); Protein,Urine 2+ (Negative); RBC,Urine 138 /hpf (0-5); Squamous Epithelial Cell,Urine 2 /hpf (0-4); Urobilinogen,Urine <2.0 mg/dL (<2.0); WBC,Urine >182 /hpf (0-5)
[2021-03-24] MEDS ORDERED: CEPHALEXIN 500MG STARTER PACK 4 CAP BTL PO STA (21:44)
--- NOTE | 2021-03-24 21:46 | ED ---
General Adult HPI - General Chief complaint: Urogenital Stated complaint: Catheter Issues Time Seen by Provider: 03/24/21 20:33 Source: patient, EMS, RN notes reviewed Mode of arrival: EMS Limitations: physical limitation - History of Present Illness Initial comments: 56-year-old female presents emergency Department with chief complaint of Espinoza catheter leaking. Patient states she's had a Espinoza catheter last few months secondary to a left leg fracture. She is essentially non-ambulatory at this time. Patient was brought in because her Family, the last couple weeks. She denies any other complaints denies fevers chills abdominal pain weakness chest pain shortness breath. Patient states she did not really want to come but her family advised her to come. - Related Data Home Medications Medication Instructions Recorded Confirmed Albuterol Inhaler [Ventolin Hfa 2 puff INHALATION RT-Q4H PRN 02/21/21 02/21/21 Inhaler] Divalproex ER [Depakote ER] 500 mg PO BID 02/21/21 02/21/21 Oxybutynin Chloride [Ditropan] 5 mg PO BID 02/21/21 02/21/21 Paliperidone [Invega] 3 mg PO DAILY 02/21/21 02/21/21 Paliperidone [Invega] 6 mg PO DAILY 02/21/21 02/21/21 Previous Rx's Medication Instructions Recorded DULoxetine HCL [Cymbalta] 30 mg PO DAILY 30 Days capsule. 08/13/20 Levothyroxine Sodium [Synthroid] 50 mcg PO DAILY@0630 tab 08/13/20 Aspirin 81 mg PO DAILY #30 chew 02/25/21 Cefuroxime Axetil [Ceftin] 500 mg PO BID 3 Days #6 tab 02/25/21 Cephalexin [Keflex] 500 mg PO Q8HR #30 cap 03/24/21 Allergies Allergy/AdvReac Type Severity Reaction Status Date / Time acetaminophen [From Vicodin] Allergy Rash/Hives Verified 03/24/21 20:09 hydrocodone [From Vicodin] Allergy Rash/Hives Verified 03/24/21 20:09 Review of Systems ROS Statement: Those systems with pertinent positive or pertinent negative responses have been documented in the HPI. ROS Other: All systems not noted in ROS Statement are negative. Past Medical History Past Medical History: No Reported History History of Any Multi-Drug Resistant Organisms: None Reported Past Surgical History: Cardiac Valve Replacement Additional Past Surgical History / Comment(s): left ovary removed Past Psychological History: Schizoaffective Disorder, Schizophrenia Smoking Status: Current every day smoker Past Alcohol Use History: None Reported Past Drug Use History: Marijuana General Exam General appearance: alert, in no apparent distress Head exam: Present: atraumatic, normocephalic, normal inspection Neck exam: Present: normal inspection. Absent: tenderness, meningismus, lymphadenopathy Respiratory exam: Present: normal lung sounds bilaterally. Absent: respiratory distress, wheezes, rales, rhonchi, stridor Cardiovascular Exam: Present: regular rate, normal rhythm, normal heart sounds. Absent: systolic murmur, diastolic murmur, rubs, gallop, clicks GI/Abdominal exam: Present: soft, normal bowel sounds. Absent: distended, tenderness, guarding, rebound, rigid Course Vital Signs 03/24/21 20:06 Temperature 98.4 F Pulse Rate 90 Respiratory 18 Rate Blood Pressure 111/67 O2 Sat by Pulse 93 L Oximetry Medical Decision Making - Medical Decision Making Urinalysis shows evidence of urinary tract infection. Patient was started on oral antibiotics. Vitals are stable. Patient discharged in stable condition. Espinoza catheter was exchanged. - Lab Data Lab Results 03/24/21 Range/Units 21:14 Urine Color Yellow Urine Appearance Turbid H (Clear) Urine pH 6.5 (5.0-8.0) Ur Specific [place] 1.020 (1.001-1.035) Urine Protein 2+ H (Negative) Urine Glucose (UA) Negative (Negative) Urine Ketones Negative (Negative) Urine Blood Large H (Negative) Urine Nitrite Positive H (Negative) Urine Bilirubin Negative (Negative) Urine Urobilinogen <2.0 (<2.0) mg/dL Ur Leukocyte Esterase Large H (Negative) Urine RBC 138 H (0-5) /hpf Urine WBC >182 H (0-5) /hpf Urine WBC Clumps Many H (None) /hpf Ur Squamous Epith Cells 2 (0-4) /hpf Urine Bacteria Rare H (None) /hpf Disposition Clinical Impression: Complication of Espinoza catheter, UTI (urinary tract infection) Disposition: HOME SELF-CARE Condition: Stable Instructions (If sedation given, give patient instructions): Urinary Tract Infection in Women (ED) Additional Instructions: Please return to the Emergency Department if symptoms worsen or any other concerns. Prescriptions: Cephalexin [Keflex] 500 mg PO Q8HR #30 cap Is patient prescribed a controlled substance at d/c from ED?: No Referrals: Markie Beltrán DO [Primary Care Provider] - 1-2 days Time of Disposition: 21:46
[2021-03-24 23:12] VITALS: BP 111/80
== END 2021-03-24 23:20 | disposition home or self-care (01) ==
LOC: EC 20:03
DX: T83.038A Leakage of other urinary catheter, initial encounter (principal); N39.0 Urinary tract infection, site not specified; F25.9 Schizoaffective disorder, unspecified; F17.200 Nicotine dependence, unspecified, uncomplicated; F12.90 Cannabis use, unspecified, uncomplicated; Z79.82 Long term (current) use of aspirin; Z79.890 Hormone replacement therapy; Z79.899 Other long term (current) drug therapy; Z79.51 Long term (current) use of inhaled steroids; Z88.5 Allergy status to narcotic agent; Z88.8 Allergy status to other drugs, medicaments and biological substances
CPT/HCPCS: 51702; 81001; 87086; 99284

== ENCOUNTER 2021-05-05 19:20 | Inpatient (IN) | payer BC ==
[2021-05-05] MEDS: SODIUM CHLORIDE 0.9% 500 ML 500 ML IV SCH ×2 (19:30→20:04)
[2021-05-05] MEDS: SODIUM CHLORIDE 0.9% 1,000 ML IV SCH (19:51)
[2021-05-05] MEDS ORDERED: SODIUM CHLORIDE 0.9% 1,000 ML IV ONE (19:55)
[2021-05-05 20:07] LABS: INR 1.4 (<1.2); Prothrombin Time 14.1 sec (9.0-12.0)
[2021-05-05 20:12] LABS: Albumin 3.1 g/dL (3.5-5.0); Calcium 9.3 mg/dL (8.4-10.2); Potassium 4.4 mmol/L (3.5-5.1); Total Bilirubin 1.5 mg/dL (0.2-1.3); Total Protein 6.4 g/dL (6.3-8.2)
[2021-05-05 20:14] LABS: Basophils % (A) 0 %; Eosinophils % (A) 0 %; HCT 33.3 % (34.0-46.0); HGB 11.2 gm/dL (11.4-16.0); Lymphocytes # (A) 0.7 k/uL (1.0-4.8); Lymphocytes % (A) 5 %; MCH 33.6 pg (25.0-35.0); MCHC 33.6 g/dL (31.0-37.0); Macrocytosis Slight; Monocytes # (A) 0.6 k/uL (0-1.0); Monocytes % (A) 4 %; Neutrophils # (A) 12.2 k/uL (1.3-7.7); Neutrophils % (A) 89 %; Platelet Count 152 k/uL (150-450); Poikilocytosis Slight; RBC 3.33 m/uL (3.80-5.40); RDW 15.4 % (11.5-15.5); WBC 13.7 k/uL (3.8-10.6)
--- NOTE | 2021-05-05 20:15 | ED ---
General Adult HPI - General Chief complaint: Altered Mental Status Stated complaint: Sepsis Time Seen by Provider: 05/05/21 19:24 Source: patient, EMS, RN notes reviewed, old records reviewed Mode of arrival: EMS Limitations: no limitations - History of Present Illness Initial comments: 56-year-old female presenting with altered mental status. Patient was transported by EMS with fever, tachycardia. She had been altered for the past 24 hours according to EMS. She was recently treated for urinary tract infection and had a Espinoza catheter removed. Uncertain if she was on antibiotics. Patient is unable to contribute at all to the history. She is protecting her airway and breathing spontaneously. - Related Data Home Medications Medication Instructions Recorded Confirmed Albuterol Inhaler [Ventolin Hfa 2 puff INHALATION RT-Q4H PRN 02/21/21 05/05/21 Inhaler] Divalproex ER [Depakote ER] 500 mg PO BID 02/21/21 05/05/21 Oxybutynin Chloride [Ditropan] 5 mg PO BID 02/21/21 05/05/21 Paliperidone [Invega] 3 mg PO DAILY 02/21/21 05/05/21 Paliperidone [Invega] 6 mg PO HS 02/21/21 05/05/21 Previous Rx's Medication Instructions Recorded DULoxetine HCL [Cymbalta] 30 mg PO DAILY 30 Days capsule. 08/13/20 Levothyroxine Sodium [Synthroid] 50 mcg PO DAILY@0630 tab 08/13/20 Aspirin 81 mg PO DAILY #30 chew 02/25/21 Allergies Allergy/AdvReac Type Severity Reaction Status Date / Time acetaminophen [From Vicodin] Allergy Rash/Hives Verified 05/05/21 19:59 hydrocodone [From Vicodin] Allergy Rash/Hives Verified 05/05/21 19:59 Review of Systems ROS Statement: Those systems with pertinent positive or pertinent negative responses have been documented in the HPI. ROS Other: All systems not noted in ROS Statement are negative. Past Medical History Past Medical History: No Reported History History of Any Multi-Drug Resistant Organisms: None Reported Past Surgical History: Cardiac Valve Replacement Additional Past Surgical History / Comment(s): left ovary removed Past Psychological History: Schizoaffective Disorder, Schizophrenia Smoking Status: Current every day smoker Past Alcohol Use History: None Reported Past Drug Use History: Marijuana - Past Family History Mother History Unknown: Yes Father History Unknown: Yes General Exam Limitations: no limitations General appearance: lethargic, in distress Head exam: Present: atraumatic, normocephalic Eye exam: Present: normal appearance, PERRL ENT exam: Present: mucous membranes dry Neck exam: Present: normal inspection. Absent: tenderness, meningismus Respiratory exam: Present: rhonchi, decreased breath sounds. Absent: respiratory distress Cardiovascular Exam: Present: normal rhythm, tachycardia GI/Abdominal exam: Present: soft. Absent: distended, tenderness, guarding Extremities exam: Present: normal inspection, normal capillary refill. Absent: pedal edema Neurological exam: Present: other (Patient does withdrawal to pain in all 4 extremities.) Skin exam: Present: warm, dry, intact Course Vital Signs 05/05/21 05/05/21 05/05/21 19:27 19:52 20:49 Temperature 102.2 F H 102.9 F H 102.1 F H Pulse Rate 122 H 124 H 122 H Respiratory 18 32 H 26 H Rate Blood Pressure 102/76 117/94 110/87 O2 Sat by Pulse 89 L 95 95 Oximetry - Reevaluation(s) Reevaluation #1: 05/05/21 20:36 Patient had urine culture which was pansensitive E. coli. From prior ER visit. Reevaluation #2: 05/05/21 20:[address] Rock who will admit. EKG Findings - EKG Comments: EKG Findings:: EKG: Sinus tachycardia, rate of 128, CA interval 118, QRS duration 68, QTC 411, no ST segment elevation. Medical Decision Making - Medical Decision Making 56-year-old female presented with confusion, lethargy, fever. Recent UTI. [facility] does have significant urinary tract infection, repeat culture will be obtained, previous culture was E. coli which was pansensitive. She's given 2 g Rocephin, 2 L of IV hydration started on maintenance fluids at 130 mL/h normal saline. She has a leukocytosis 13.7, mild lactic acid of 2.9. Chest x-ray does show some interstitial infiltrate which is improved from prior. She has acute kidney injury with a creatinine of 3.16 and a BUN of 45. Brain CT is pending. She will be admitted for altered mental status secondary to UTI with sepsis, acute kidney injury. Case discussed with Dr. Rock. - Lab Data Result diagrams: 05/06/21 02:35 05/06/21 02:35 Lab Results 05/05/21 05/05/21 05/05/21 Range/Units 19:47 19:47 19:47 WBC 13.7 H (3.8-10.6) k/uL RBC 3.33 L (3.80-5.40) m/uL Hgb 11.2 L (11.4-16.0) gm/dL Hct 33.3 L (34.0-46.0) % MCV 100.0 (80.0-100.0) fL MCH 33.6 (25.0-35.0) pg MCHC 33.6 (31.0-37.0) g/dL RDW 15.4 (11.5-15.5) % Plt Count 152 (150-450) k/uL MPV 7.0 Neutrophils % 89 % Lymphocytes % 5 % Monocytes % 4 % Eosinophils % 0 % Basophils % 0 % Neutrophils # 12.2 H (1.3-7.7) k/uL Lymphocytes # 0.7 L (1.0-4.8) k/uL Monocytes # 0.6 (0-1.0) k/uL Eosinophils # 0.0 (0-0.7) k/uL Basophils # 0.0 (0-0.2) k/uL Poikilocytosis Slight Macrocytosis Slight PT 14.1 H (9.0-12.0) sec INR 1.4 H (<1.2) APTT 24.0 (22.0-30.0) sec Sodium (137-145) mmol/L Potassium (3.5-5.1) mmol/L Chloride (98-107) mmol/L Carbon Dioxide (22-30) mmol/L Anion Gap mmol/L BUN (7-17) mg/dL Creatinine (0.52-1.04) mg/dL Est GFR (CKD-EPI)AfAm (>60 ml/min/1.73 sqM) Est GFR (CKD-EPI)NonAf (>60 ml/min/1.73 sqM) Glucose (74-99) mg/dL Lactic Ac Sepsis Rflx Plasma Lactic Acid Grant (0.7-2.0) mmol/L Calcium (8.4-10.2) mg/dL Total Bilirubin (0.2-1.3) mg/dL AST (14-36) U/L ALT (4-34) U/L Alkaline Phosphatase (38-126) U/L Total Protein (6.3-8.2) g/dL Albumin (3.5-5.0) g/dL Urine Color Red Urine Appearance Turbid H (Clear) Urine pH 7.0 (5.0-8.0) Ur Specific [place] 1.013 (1.001-1.035) Urine Protein 2+ H (Negative) Urine Glucose (UA) Negative (Negative) Urine Ketones Negative (Negative) Urine Blood Moderate H (Negative) Urine Nitrite Negative (Negative) Urine Bilirubin Negative (Negative) Urine Urobilinogen <2.0 (<2.0) mg/dL Ur Leukocyte Esterase Large H (Negative) Urine RBC >182 H (0-5) /hpf Urine WBC >182 H (0-5) /hpf Urine WBC Clumps Many H (None) /hpf Urine Bacteria Many H (None) /hpf Coronavirus (PCR) (Not Detectd) 05/05/21 05/05/21 05/05/21 Range/Units 19:47 19:47 19:47 WBC (3.8-10.6) k/uL RBC (3.80-5.40) m/uL Hgb (11.4-16.0) gm/dL Hct (34.0-46.0) % MCV (80.0-100.0) fL MCH (25.0-35.0) pg MCHC (31.0-37.0) g/dL RDW (11.5-15.5) % Plt Count (150-450) k/uL MPV Neutrophils % % Lymphocytes % % Monocytes % % Eosinophils % % Basophils % % Neutrophils # (1.3-7.7) k/uL Lymphocytes # (1.0-4.8) k/uL Monocytes # (0-1.0) k/uL Eosinophils # (0-0.7) k/uL Basophils # (0-0.2) k/uL Poikilocytosis Macrocytosis PT (9.0-12.0) sec INR (<1.2) APTT (22.0-30.0) sec Sodium 137 (137-145) mmol/L Potassium 4.4 (3.5-5.1) mmol/L Chloride 103 (98-107) mmol/L Carbon Dioxide 21 L (22-30) mmol/L Anion Gap 13 mmol/L BUN 45 H (7-17) mg/dL Creatinine 3.16 H (0.52-1.04) mg/dL Est GFR (CKD-EPI)AfAm 18 (>60 ml/min/1.73 sqM) Est GFR (CKD-EPI)NonAf 16 (>60 ml/min/1.73 sqM) Glucose 159 H (74-99) mg/dL Lactic Ac Sepsis Rflx Plasma Lactic Acid Grant 2.9 H* (0.7-2.0) mmol/L Calcium 9.3 (8.4-10.2) mg/dL Total Bilirubin 1.5 H (0.2-1.3) mg/dL AST 40 H (14-36) U/L ALT 25 (4-34) U/L Alkaline Phosphatase 55 (38-126) U/L Total Protein 6.4 (6.3-8.2) g/dL Albumin 3.1 L (3.5-5.0) g/dL Urine Color Urine Appearance (Clear) Urine pH (5.0-8.0) Ur Specific [place] (1.001-1.035) Urine Protein (Negative) Urine Glucose (UA) (Negative) Urine Ketones (Negative) Urine Blood (Negative) Urine Nitrite (Negative) Urine Bilirubin (Negative) Urine Urobilinogen (<2.0) mg/dL Ur Leukocyte Esterase (Negative) Urine RBC (0-5) /hpf Urine WBC (0-5) /hpf Urine WBC Clumps (None) /hpf Urine Bacteria (None) /hpf Coronavirus (PCR) Not Detected (Not Detectd) 05/05/21 Range/Units 20:13 WBC (3.8-10.6) k/uL RBC (3.80-5.40) m/uL Hgb (11.4-16.0) gm/dL Hct (34.0-46.0) % MCV (80.0-100.0) fL MCH (25.0-35.0) pg MCHC (31.0-37.0) g/dL RDW (11.5-15.5) % Plt Count (150-450) k/uL MPV Neutrophils % % Lymphocytes % % Monocytes % % Eosinophils % % Basophils % % Neutrophils # (1.3-7.7) k/uL Lymphocytes # (1.0-4.8) k/uL Monocytes # (0-1.0) k/uL Eosinophils # (0-0.7) k/uL Basophils # (0-0.2) k/uL Poikilocytosis Macrocytosis PT (9.0-12.0) sec INR (<1.2) APTT (22.0-30.0) sec Sodium (137-145) mmol/L Potassium (3.5-5.1) mmol/L Chloride (98-107) mmol/L Carbon Dioxide (22-30) mmol/L Anion Gap mmol/L BUN (7-17) mg/dL Creatinine (0.52-1.04) mg/dL Est GFR (CKD-EPI)AfAm (>60 ml/min/1.73 sqM) Est GFR (CKD-EPI)NonAf (>60 ml/min/1.73 sqM) Glucose (74-99) mg/dL Lactic Ac Sepsis Rflx Y Plasma Lactic Acid Grant (0.7-2.0) mmol/L Calcium (8.4-10.2) mg/dL Total Bilirubin (0.2-1.3) mg/dL AST (14-36) U/L ALT (4-34) U/L Alkaline Phosphatase (38-126) U/L Total Protein (6.3-8.2) g/dL Albumin (3.5-5.0) g/dL Urine Color Urine Appearance (Clear) Urine pH (5.0-8.0) Ur Specific [place] (1.001-1.035) Urine Protein (Negative) Urine Glucose (UA) (Negative) Urine Ketones (Negative) Urine Blood (Negative) Urine Nitrite (Negative) Urine Bilirubin (Negative) Urine Urobilinogen (<2.0) mg/dL Ur Leukocyte Esterase (Negative) Urine RBC (0-5) /hpf Urine WBC (0-5) /hpf Urine WBC Clumps (None) /hpf Urine Bacteria (None) /hpf Coronavirus (PCR) (Not Detectd) Critical Care Time Critical Care Time: Yes Total Critical Care Time: 35 Disposition Clinical Impression: UTI (urinary tract infection), Dehydration, Acute kidney injury, Sepsis, Delirium due to general medical condition Disposition: ADMITTED IP TO THIS [facility] Condition: Serious Is patient prescribed a controlled substance at d/c from ED?: No Decision to Admit Reason: Admit from EC Decision Date: 05/05/21 Decision Time: 20:38
[2021-05-05] MEDS ORDERED: cefTRIAXone IN SWFI 1,000 MG/10 ML SYRINGE IVP STA (20:17)
[2021-05-05 20:18] LABS: Appearance,Urine Turbid (Clear); Bacteria,Urine Many /hpf; Bilirubin,Urine Negative (Negative); Blood,Urine Moderate (Negative); Color,Urine Red; Glucose,Urine (UA) Negative (Negative); Ketones,Urine Negative (Negative); Leukocyte Esterase,Urine Large (Negative); Nitrite,Urine Negative (Negative); Protein,Urine 2+ (Negative); RBC,Urine >182 /hpf (0-5); Urobilinogen,Urine <2.0 mg/dL (<2.0); WBC,Urine >182 /hpf (0-5)
[2021-05-05 20:24] LABS: Specific Gravity,Urine 1.013 (1.001-1.035)
--- NOTE | 2021-05-05 20:24 | XR ---
EXAMINATION TYPE: XR chest 1V portable DATE OF EXAM: 05/05/2021 COMPARISON: 02/22/2021 HISTORY: Fever TECHNIQUE: Single view FINDINGS: There is some mild pulmonary interstitial edema. There is poor inspiration. There are chest leads. Heart size is fairly normal. IMPRESSION: Pulmonary interstitial infiltrates appear improved compared to last exam. I do not see an y significant pleural fluid or cardiomegaly to suggest heart failure.
[2021-05-05] MEDS ORDERED: NALOXONE 0.4 MG/ML 1 ML VIAL IV PRN (20:28)
--- NOTE | 2021-05-05 20:46 | CT ---
EXAMINATION TYPE: CT brain wo con DATE OF EXAM: 05/05/2021 COMPARISON: 02/21/2021 HISTORY: AMS, septic CT DLP: 1064.4 mGycm Automated exposure control for dose reduction was used. There is cerebral cortical atrophy. There is no mass effect nor midline shift. There is no sign of in tracranial hemorrhage. Calvarium is intact. Skull base is intact. IMPRESSION: Cerebral atrophy. No acute intracranial abnormality. No change.
[2021-05-05] MEDS: VALPROATE SODIUM 500 MG in SODIUM CHLORIDE 0.9% 100 ML IVPB SCH (23:04)
[2021-05-06 02:49] LABS: Basophils % (A) 0 %; Eosinophils % (A) 1 %; HCT 37.1 % (34.0-46.0); HGB 12.1 gm/dL (11.4-16.0); Hypochromasia Slight; Lymphocytes # (A) 0.4 k/uL (1.0-4.8); Lymphocytes % (A) 6 %; MCHC 32.7 g/dL (31.0-37.0); MCV 104.2 fL (80.0-100.0); Macrocytosis Slight; Mean Platelet Volume 7.8; Monocytes # (A) 0.2 k/uL (0-1.0); Monocytes % (A) 3 %; Neutrophils % (A) 90 %; Platelet Count 105 k/uL (150-450); Poikilocytosis Slight; RBC 3.56 m/uL (3.80-5.40); RDW 14.6 % (11.5-15.5); WBC 7.8 k/uL (3.8-10.6)
[2021-05-06] MEDS ORDERED: diphenhydrAMINE 50 MG/ML 1 ML VIAL IVP STA (02:53)
[2021-05-06] MEDS ORDERED: PIPERACILLIN-TAZOBACTAM 3.375 GM in SODIUM CHLORIDE 0.9% 100 ML IVPB STA (02:56)
[2021-05-06] MEDS ORDERED: ACETAMINOPHEN IV (For NPO) 1,000 MG in EMPTY BAG 1 BAG IVPB ONE (03:00)
[2021-05-06 03:06] LABS: Albumin 3.1 g/dL (3.5-5.0); Calcium 8.7 mg/dL (8.4-10.2); Total Bilirubin 0.9 mg/dL (0.2-1.3); Total Protein 6.5 g/dL (6.3-8.2)
[2021-05-06 03:08] LABS: ABG Base Excess -8.2 mmol/L; ABG HCO3 16 mmol/L (21-25); ABG PCO2 24 mmHg (35-45); ABG PH 7.44 (7.35-7.45); ABG PO2 270 mmHg (83-108); ABG TCO2 17 mmol/L (19-24); Allen Test Performed? Yes
[2021-05-06] MEDS ORDERED: methylPREDNISolone SOD SUCCI 40 MG/ML 1 ML VIAL IV STA (03:11)
--- NOTE | 2021-05-06 04:22 | P.EN ---
A team note Activated at 2:40 am. Arrived on the scene shortly after. Reviewed the chart and discussed the case with the RN. The patient was admitted and evening of 05/05 due to altered mental status with a diagnosis of UTI and sepsis. The patient had persistent fevers but due to a documented acetaminophen ALLERGY, was only given ice packs. The patient was noted to have worsening mentation and shaking. Upon arrival at the scene, vitals were BP 112/54, P 118, SpO2 100% on high flow NC, and temp 14.0F. General: Ill-appearing female, tachypneic, appears older than stated age, morbidly obese HEENT: NC/AT, anicteric sclerae, moist conjunctiva, no lid-lag, PERRLA Cardiovascular: S1/S2 wnl, tachycardic, no murmurs, rubs, or gallops Lungs: Clear to auscultation, normal respiratory effort, no accessory muscle use Abdominal: Soft, non-tender, non-distended, no guarding, rebound, or rigidity Skin: Warm, dry Extremities: No edema or contractures Psychiatric: Not answering any questions Neuro: Moving all extremities with no gross focal deficits noted Assessment/plan Sepsis secondary to UTI, toxic metabolic encephalopathy -In light of worsening fever, decision was made to premedicate the patient with subsequent Tylenol IV infusion. -50 mg of IV Benadryl and 40 mg of IV Solu-Medrol were administered with subsequent 1000 mg IV acetaminophen -Zosyn was also given for broad spectrum IV antibiotic coverage -Attempted to discuss the case with the babbitt spinner who was notified. Did not receive call back. The patient to be transferred to MICU for further management. -The primary physician Dr. Rock was notified
[2021-05-06 04:32] LABS: Glucose,Whole Blood 164 mg/dL (75-99)
[2021-05-06] MEDS ORDERED: DEXTROSE 5% IN WATER 100 ML with AMIODARONE 150 MG IV ONE (05:06)
[2021-05-06] MEDS ORDERED: LACTATED RINGERS 1,000 ML IV ONE (05:07)
[2021-05-06] MEDS: SODIUM CHLORIDE 0.9% 1,000 ML IV SCH ×3 (05:23→20:39)
[2021-05-06 06:42] LABS: Glucose,Whole Blood 171 mg/dL (75-99)
[2021-05-06] MEDS ORDERED: ENOXAPARIN 30 MG/0.3 ML SYRINGE SQ SCH (09:00)
--- NOTE | 2021-05-06 09:08 | P.CNNES ---
History of Present Illness Consult date: 05/06/21 Requesting physician: Perry Rock Reason for Consult: nonverbal and jerking motion History of Present Illness: This is a 56-year-old woman with medical history of urinary tract infection, schizoaffective disorder who presented emergency department on 05/05/2021 via EMS for fever and tachycardia. History is obtained from medical record. It seems to the patient that was recently treated for urinary tract infection and had a Espinoza catheter removed recently and has been altered for the past 24 hours according to the medical record that was related that to the the ED team by EMS. Patient home medications per EMR consist of oxybutynin, Synthroid, Depakote 500 mg 1 tablet twice a day, Cymbalta, aspirin 81 mg daily, albuterol,invega. Per the patient's ICU nurse she stated that that was believed that the patient had UTI on 03/24/2021 and had a Espinoza catheter and she was discharged home was felt that the competition Espinoza catheter, urinary tract infection. She was discharged with cephalexin. During the visit of 03/24/2021 emergency visit the the chief complaint with urogenital and was a stated the complaint was catheter issues and it was felt that a complete was a Espinoza catheter was weakened. Per ICU nurse there is a family member who is a nurse's aide and they removed a Espinoza catheter. Of note there was an event noted on 05/06/2021 around 334 in which the patient had percent fever and that could not get acetaminophen because of ALLERGY and it was getting only icepack the patient was having worsening in the mentation and was having shaken others as a result the patient was transferred to the MICU. Per the ICU nurse she has been more responsive and she has not felt she had any further jerks. Upon reviewing medical record the patient presented to our facility on 02/21/2021 after a fall and she had left tibial/fibular fracture and it was hard to obtain the history from the patient because she was drowsy and sleepy. And it is reported the patient went into atrial fibrillation which is new onset atrial fibrillation and started on Cardizem and heparin drip during that time. During that visit the patient received as Ativan. Was reported that the patient does have history of nicotine use. Some other workup in the hospital consisted of: Initial vital signs is a blood pressure of 102/76, heart rate of 112, respiratory of 18, in particular of 102.2 Fahrenheit axillary, pulse ox of the 89% and liters on 4 L of nasal cannula. Her temperature was as high as 103.1 Fahrenheit that is recorded and the most current temperature is 99.4 Fahrenheit. Initial white blood cells 13.7 and it's a predominantly neutrophilic and the next white blood cell is 7.8 which is normal. Chemistry panel is a sodium is 137 which is normal, calcium is 9.3 also normal, AST of 40 which is slightly elevated and the ALTs 25 which is normal. Creatinine on presentation was 3.6 which is elevated and the most current creatinine is 2.42 which is trending down. BUN is 45 and the repeated BUN is 46. Lactic acid is 2.9 and a repeat is 2.8. Urinalysis is positive for urinary tract infection. The urine and appears turbid, urine nitrite is negative, looks after his large, urine white blood cells more than 182. The urine bacteria is many. CT of the head is reported as cerebral atrophy. No acute intracranial abnormality. No change. EKG is reported as sinus tachycardia. Otherwise normal EKG. Review of Systems Review of system is limited in the prone positive and negative as per HPI. Past Medical History Past Medical History: No Reported History History of Any Multi-Drug Resistant Organisms: None Reported Past Surgical History: Cardiac Valve Replacement Additional Past Surgical History / Comment(s): left ovary removed Smoking Status: Current every day smoker - Past Family History Mother History Unknown: Yes Father History Unknown: Yes Medications and Allergies Home Medications Medication Instructions Recorded Confirmed Type DULoxetine HCL [Cymbalta] 30 mg PO DAILY 30 Days capsule. 08/13/20 05/05/21 Rx Levothyroxine Sodium [Synthroid] 50 mcg PO DAILY@0630 tab 08/13/20 05/05/21 Rx Albuterol Inhaler [Ventolin Hfa 2 puff INHALATION RT-Q4H PRN 02/21/21 05/05/21 History Inhaler] Divalproex ER [Depakote ER] 500 mg PO BID 02/21/21 05/05/21 History Oxybutynin Chloride [Ditropan] 5 mg PO BID 02/21/21 05/05/21 History Paliperidone [Invega] 3 mg PO DAILY 02/21/21 05/05/21 History Paliperidone [Invega] 6 mg PO HS 02/21/21 05/05/21 History Aspirin 81 mg PO DAILY #30 chew 02/25/21 05/05/21 Rx Allergies Allergy/AdvReac Type Severity Reaction Status Date / Time acetaminophen [From Vicodin] Allergy Rash/Hives Verified 05/05/21 19:59 hydrocodone [From Vicodin] Allergy Rash/Hives Verified 05/05/21 19:59 Physical Examination - Vital Signs Vital Signs: Vital Signs Temp Pulse Pulse Resp BP BP Pulse Ox 05/06/21 07:30 96 20 109/36 100 05/06/21 07:20 93 18 109/36 98 05/06/21 07:10 93 20 86/51 05/06/21 07:00 96 17 100/57 94 L 05/06/21 06:50 90 24 97/49 100 05/06/21 06:40 96 23 87/59 96 05/06/21 06:30 94 19 90/45 90 L 05/06/21 06:20 95 15 90/45 94 L 05/06/21 06:10 151 H 19 116/90 92 L 05/06/21 06:00 99.4 F 146 H 26 H 116/90 100 05/06/21 05:50 147 H 21 93/68 100 05/06/21 05:40 125 H 22 95/54 100 05/06/21 05:30 100.4 F H 121 H 21 95/54 98 05/06/21 05:20 140 H 20 82/51 100 05/06/21 05:10 154 H 23 82/51 99 05/06/21 05:00 134 H 25 H 82/51 97 05/06/21 04:50 147 H 22 86/56 05/06/21 04:40 101 H 22 86/56 05/06/21 04:30 101.5 F H 117 H 21 05/06/21 04:23 111 H 31 H 05/06/21 02:50 84 L 05/06/21 00:00 100.7 F H 116 H 18 113/87 99 05/05/21 22:00 103.1 F H 117 H 20 125/95 100 05/05/21 20:49 102.1 F H 122 H 26 H 110/87 95 05/05/21 19:52 102.9 F H 124 H 32 H 117/94 95 05/05/21 19:27 102.2 F H 122 H 18 102/76 89 L Intake and Output 05/05/21 05/06/21 05/06/21 22:59 06:59 14:59 Intake Total 1130 130 Output Total 450 200 Balance 680 -70 Intake: IV 1130 130 Lactated Ringers 1,000 ml 1000 @ 999 mls/hr IV .Q1H1M ONE Rx#:[id number] Sodium Chloride 0.9% 1, 130 130 000 ml @ 130 mls/hr IV . Q7H42M [facility] Rx#:[id number] Output: Urine 450 200 Other: Voiding Method Indwelling Catheter Weight 99.79 kg 99.79 kg GENERAL: The patient is lying in bed and does not seem in acute distress. CHEST: The heart rate is regular rate rhythm. No murmurs to auscultation. No carotid bruit bilaterally. LUNG: Clear to auscultation bilaterally no wheezing noted throughout. Not labored breathing. ABDOMEN/GI: Bowel sounds present in all 4 quadrants. No tenderness to palpation throughout. NEUROLOGICAL: Higher mental function: The patient is drowsy but awakeable to voice. Oriented to self only. She is not responding to time or place. She stated only to only object (pen). She is able to show thumbs up on both hands. Patient is following few simple commands. It is hard to assess language. No neglect. Cranial nerves: The pupils are round, equal and reactive to light. Visual wright and extraocular movement are hard to assess. No facial weakness. She is able to stick her tongue out. No dysarthria is noted from limited language. Motor: The strength is able to lift bilateral upper and lower extremities above gravity briefly (upper > lower). Slight increase tone in uppers. She has myoclonic jerks. Cerebellum: Sensation: Could not assess. Reflexes (right/left): 2+ throughout. Plantars are mute bilaterally. Results Chest x-rays reported as pulmonary interstitial infiltrates appear improved compared to last exam. I do not see any significant pleural fluid or cardiomegaly to suggest heart failure. Call virus PCR was not detected. - Laboratory Findings CBC and BMP: 05/06/21 02:35 05/06/21 02:35 Abnormal Lab Findings: Abnormal Labs 05/05/21 05/05/21 05/05/21 19:47 19:47 19:47 WBC 13.7 H RBC 3.33 L Hgb 11.2 L Hct 33.3 L MCV Plt Count Neutrophils # 12.2 H Lymphocytes # 0.7 L PT 14.1 H INR 1.4 H ABG pCO2 ABG pO2 ABG HCO3 ABG Total CO2 ABG O2 Saturation Chloride Carbon Dioxide BUN Creatinine Glucose POC Glucose (mg/dL) Plasma Lactic Acid Grant Total Bilirubin AST Albumin Urine Appearance Turbid H Urine Protein 2+ H Urine Blood Moderate H Ur Leukocyte Esterase Large H Urine RBC >182 H Urine WBC >182 H Urine WBC Clumps Many H Urine Bacteria Many H 05/05/21 05/05/21 05/05/21 19:47 19:47 23:09 WBC RBC Hgb Hct MCV Plt Count Neutrophils # Lymphocytes # PT INR ABG pCO2 ABG pO2 ABG HCO3 ABG Total CO2 ABG O2 Saturation Chloride Carbon Dioxide 21 L BUN 45 H Creatinine 3.16 H Glucose 159 H POC Glucose (mg/dL) Plasma Lactic Acid Grant 2.9 H* 2.8 H* Total Bilirubin 1.5 H AST 40 H Albumin 3.1 L Urine Appearance Urine Protein Urine Blood Ur Leukocyte Esterase Urine RBC Urine WBC Urine WBC Clumps Urine Bacteria 05/06/21 05/06/21 05/06/21 02:35 02:35 02:35 WBC RBC 3.56 L Hgb Hct MCV 104.2 H Plt Count 105 L Neutrophils # Lymphocytes # 0.4 L PT INR ABG pCO2 ABG pO2 ABG HCO3 ABG Total CO2 ABG O2 Saturation Chloride 109 H Carbon Dioxide 17 L BUN 46 H Creatinine 2.42 H Glucose 141 H POC Glucose (mg/dL) Plasma Lactic Acid Grant 3.0 H* Total Bilirubin AST 44 H Albumin 3.1 L Urine Appearance Urine Protein Urine Blood Ur Leukocyte Esterase Urine RBC Urine WBC Urine WBC Clumps Urine Bacteria 05/06/21 05/06/21 05/06/21 03:05 04:30 05:35 WBC RBC Hgb Hct MCV Plt Count Neutrophils # Lymphocytes # PT INR ABG pCO2 24 L ABG pO2 270 H ABG HCO3 16 L ABG Total CO2 17 L ABG O2 Saturation 100.0 H Chloride Carbon Dioxide BUN Creatinine Glucose POC Glucose (mg/dL) 164 H Plasma Lactic Acid Grant 2.6 H* Total Bilirubin AST Albumin Urine Appearance Urine Protein Urine Blood Ur Leukocyte Esterase Urine RBC Urine WBC Urine WBC Clumps Urine Bacteria 05/06/21 06:40 WBC RBC Hgb Hct MCV Plt Count Neutrophils # Lymphocytes # PT INR ABG pCO2 ABG pO2 ABG HCO3 ABG Total CO2 ABG O2 Saturation Chloride Carbon Dioxide BUN Creatinine Glucose POC Glucose (mg/dL) 171 H Plasma Lactic Acid Grant Total Bilirubin AST Albumin Urine Appearance Urine Protein Urine Blood Ur Leukocyte Esterase Urine RBC Urine WBC Urine WBC Clumps Urine Bacteria Assessment and Plan Assessment: Altered mental status due to likely septic encephalopathy from acute urinary tract infection as well as component metabolic encephalopathy (acute kidney insuffiency) Myoclonic jerks likely due to above. Rule out seizures. Acute kidney insufficiency--trending down Acute on chronic urinary tract infection History of fall with left tibial/fibial fracture in 02/2021 History of Schizoaffective disorder Plan: Physical reported the body jerks I ordered an urgent EEG. I will not start the patient on an antiepileptic drug unless there is epileptiform discharges or seizure on the EEG. I ordered MRI of the brain without gadolinium (cannot used jay because of acute kidney insuffiency). Ordered TSH level, vitamin B12, folate levels. I will hold off on Lumbar puncture at this moment and if there is no improvement will consider getting Lumbar puncture. Patient is on ceftriaxone for her urinary tract infection will defer the management to the ICU as well as the primary team. We'll defer the rest of the medical management to the primary as well as ICU team. Plan was discussed with the patient ICU attending. I attempted to contacted the patient son but went to voice message and will try again later. Thank you for the consultation. UPDATE: I was able to get hold of the son (Zurdo) and his girlfriend (Samy) via phone. He stated that patient has not been eating or taking her medication since 4pm Wednesday then started she had difficulty breathing. She been confused and slow in responding. This past Wednesday she was talking normal then after that less responsive. She has been restless. She has no n ausea or vomiting. He stated that she had UTI and his girlfriend took out Wednesday because she was incontinent (his girlfriend is a nurse assistant office manager). Then by Wednesday she was not responding. Per the girlfriend she was restless yesterday but no jerking of one side or other. No gaze deviation, foaming around the mouth. She does not have history of seizure. I notified them that I will pursue Lumbar puncture to rule out central infection and they were in agreement for lumbar puncture. John Laws MD Neuro-Hospitalist Time with Patient: Greater than 30
[2021-05-06] MEDS: PANTOPRAZOLE 40 MG/10 ML VIAL IVP SCH (09:54)
[2021-05-06 11:00] LABS: Valproic Acid (Depakene) 24.2 ug/mL
[2021-05-06 11:29] LABS: Glucose,Whole Blood 143 mg/dL (75-99)
--- NOTE | 2021-05-06 11:49 | P.CNPUL ---
History of Present Illness Consult date: 05/06/21 Chief complaint: Altered mental status History of present illness: This is a 56-year-old here patient was hospitalized yesterday because of altered mental status, the patient was nonverbal and she was jerking and she was having Reiger's and high-grade fever and tachycardia. She was diagnosed having a UTI and this was a recurrent event. She initially she was admitted to the medical floor and following that the patient was transferred to the intensive care unit as the patient's mental status was quite low and the patient was having high- grade fever and questionable seizure activity. For that reason, the patient got transferred to the intensive care unit. The working diagnosis for now remains and recurrent urine checked infection. Mother the patient was in the hospital approximately a few months back and the patient had an E. coli UTI and sepsis. Suspect the same for now. On today's evaluation, the patient is more alert. She is following some simple commands although she is slow in answering questions or following commands at this point in time. No focal neurological deficit. No headaches. No neck stiffness. No focal neurological deficit. No clear evidence of any underlying seizure activity. EEG and MRI of the brain has already been ordered by neurology. Meanwhile, the patient is being treated with a combination of fluids and antibiotics. The patient received a total of 3 L of IV fluids and the patient is currently on a maintenance of 0.9 at 1:30 sees an hour the patient received 2 g of IV Rocephin. Cultures still pending for now. Her Espinoza catheter showed quite cloudy and abnormal urine output which is essentially clearing at this point in time. She also had a bout of atrial fibrillation with RVR yesterday and she was given a total of 150 mg of amiodarone and subsequently she converted to normal sinus rhythm. Note that she did the same during an earlier admission where she had A. fib. She converted to sinus rhythm. She was not placed on anticoagulation. Her echocardiogram was essentially within normal limits. The white cell count currently is at 7.8. Lactic acid level is down to 1.9 from 2.8. COVID-19 testing was negative. Rest of the electrolytes show an acute kidney injury with a creatinine of 3.16 and creatinine is improving down to 2.4. Sodium is at 139 with a bicarb level of 17 with a gap of 13. Review of Systems ROS unobtainable: due to mental status Past Medical History Past Medical History: No Reported History Additional Past Medical History / Comment(s): History of E. coli UTI, history of approximately 2 fibrillation current rhythm is sinus, history of a left tibial and fibular fracture that was managed conservatively and the patient was essentially nonweightbearing undergoing rehabilitation at the detention, schizoaffective disorder, obesity History of Any Multi-Drug Resistant Organisms: None Reported Past Surgical History: Cardiac Valve Replacement Additional Past Surgical History / Comment(s): left ovary removed Past Anesthesia/Blood Transfusion Reactions: No Reported Reaction Smoking Status: Current every day smoker - Past Family History Mother History Unknown: Yes Father History Unknown: Yes Medications and Allergies Home Medications Medication Instructions Recorded Confirmed Type DULoxetine HCL [Cymbalta] 30 mg PO DAILY 30 Days capsule. 08/13/20 05/05/21 Rx Levothyroxine Sodium [Synthroid] 50 mcg PO DAILY@0630 tab 08/13/20 05/05/21 Rx Albuterol Inhaler [Ventolin Hfa 2 puff INHALATION RT-Q4H PRN 02/21/21 05/05/21 History Inhaler] Divalproex ER [Depakote ER] 500 mg PO BID 02/21/21 05/05/21 History Oxybutynin Chloride [Ditropan] 5 mg PO BID 02/21/21 05/05/21 History Paliperidone [Invega] 3 mg PO DAILY 02/21/21 05/05/21 History Paliperidone [Invega] 6 mg PO HS 02/21/21 05/05/21 History Aspirin 81 mg PO DAILY #30 chew 02/25/21 05/05/21 Rx Allergies Allergy/AdvReac Type Severity Reaction Status Date / Time acetaminophen [From Vicodin] Allergy Rash/Hives Verified 05/05/21 19:59 hydrocodone [From Vicodin] Allergy Rash/Hives Verified 05/05/21 19:59 Physical Exam Vitals: Vital Signs Temp Pulse Pulse Resp BP BP Pulse Ox 05/06/21 11:00 92 20 92/60 94 L 05/06/21 10:00 86 18 88/56 96 05/06/21 09:00 88 19 83/50 96 05/06/21 08:10 83 23 83/50 100 05/06/21 08:00 97.7 F 90 17 96/50 100 05/06/21 07:50 92 23 96/50 100 05/06/21 07:40 92 8 L 119/47 100 05/06/21 07:30 96 20 109/36 100 05/06/21 07:20 93 18 109/36 98 05/06/21 07:10 93 20 86/51 05/06/21 07:00 96 17 100/57 94 L 05/06/21 06:50 90 24 97/49 100 05/06/21 06:40 96 23 87/59 96 05/06/21 06:30 94 19 90/45 90 L 05/06/21 06:20 95 15 90/45 94 L 05/06/21 06:10 151 H 19 116/90 92 L 05/06/21 06:00 99.4 F 146 H 26 H 116/90 100 05/06/21 05:50 147 H 21 93/68 100 05/06/21 05:40 125 H 22 95/54 100 05/06/21 05:30 100.4 F H 121 H 21 95/54 98 05/06/21 05:20 140 H 20 82/51 100 05/06/21 05:10 154 H 23 82/51 99 05/06/21 05:00 134 H 25 H 82/51 97 05/06/21 04:50 147 H 22 86/56 05/06/21 04:40 101 H 22 86/56 05/06/21 04:30 101.5 F H 117 H 21 05/06/21 04:23 111 H 31 H 05/06/21 02:50 84 L 05/06/21 00:00 100.7 F H 116 H 18 113/87 99 05/05/21 22:00 103.1 F H 117 H 20 125/95 100 05/05/21 20:49 102.1 F H 122 H 26 H 110/87 95 05/05/21 19:52 102.9 F H 124 H 32 H 117/94 95 05/05/21 19:27 102.2 F H 122 H 18 102/76 89 L Intake and Output 05/05/21 05/06/21 05/06/21 22:59 06:59 14:59 Intake Total 1130 650 Output Total 450 660 Balance 680 -10 Intake: IV 1130 650 Lactated Ringers 1,000 ml 1000 @ 999 mls/hr IV .Q1H1M ONE Rx#:[id number] Sodium Chloride 0.9% 1, 130 650 000 ml @ 130 mls/hr IV . Q7H42M [facility] Rx#:[id number] Output: Urine 450 660 Other: Voiding Method Indwelling Catheter Indwelling Catheter # Bowel Movements 1 Weight 99.79 kg 99.79 kg Gen. appearance, lethargic, sleepy, arousable, following simple commands, slow in response in general because of an underlying encephalopathy. No obvious focal neurological deficits. Head exam was generally normal. There was no scleral icterus or corneal arcus. Mucous membranes were moist. Neck was supple and without jugular venous distension, thyromegaly, or carotid bruits. Carotids were easily palpable bilaterally. There was no adenopathy. Lungs were clear to auscultation and percussion, and with normal diaphragmatic excursion. No wheezes or rales were noted. Cardiac exam revealed the PMI to be normally situated and sized. The rhythm was regular and no extrasystoles were noted during several minutes of auscultation. The first and second heart sounds were normal and physiologic splitting of the second heart sound was noted. There were no murmurs, rubs, clicks, or gallops. Abdominal exam revealed normal bowel sounds. The abdomen was soft, non-tender, and without masses, organomegaly, or appreciable enlargement of the abdominal aorta. Examination of the extremities revealed easily palpable radial, femoral and pedal pulses. There was no cyanosis, clubbing or edema. Examination of the skin revealed no evidence of significant rashes, suspicious appearing nevi or other concerning lesions. Neurologically lethargic yet arousable. No focal logical deficits. Pupils are equal and reactive to light. No facial asymmetry. No neck stiffness. No nystagmus. No clonus. Motor function is reduced in all 4 extremities and the patient has global weakness. Sensory cannot be adequately assessed. Reflexes equal and symmetrical. Results - Laboratory Findings CBC and BMP: 05/06/21 02:35 05/06/21 02:35 ABG ABG pH 7.44 (7.35-7.45) 05/06/21 03:05 ABG pCO2 24 mmHg (35-45) L 05/06/21 03:05 ABG pO2 270 mmHg (83-108) H 05/06/21 03:05 ABG O2 Saturation 100.0 % (94-97) H 05/06/21 03:05 PT/INR, D-dimer PT 14.1 sec (9.0-12.0) H 05/05/21 19:47 INR 1.4 (<1.2) H 05/05/21 19:47 Abnormal lab findings: Abnormal Labs 05/05/21 05/05/21 05/05/21 19:47 19:47 19:47 WBC 13.7 H RBC 3.33 L Hgb 11.2 L Hct 33.3 L MCV Plt Count Neutrophils # 12.2 H Lymphocytes # 0.7 L PT 14.1 H INR 1.4 H ABG pCO2 ABG pO2 ABG HCO3 ABG Total CO2 ABG O2 Saturation Chloride Carbon Dioxide BUN Creatinine Glucose POC Glucose (mg/dL) Plasma Lactic Acid Grant Total Bilirubin AST Albumin Urine Appearance Turbid H Urine Protein 2+ H Urine Blood Moderate H Ur Leukocyte Esterase Large H Urine RBC >182 H Urine WBC >182 H Urine WBC Clumps Many H Urine Bacteria Many H 05/05/21 05/05/21 05/05/21 19:47 19:47 23:09 WBC RBC Hgb Hct MCV Plt Count Neutrophils # Lymphocytes # PT INR ABG pCO2 ABG pO2 ABG HCO3 ABG Total CO2 ABG O2 Saturation Chloride Carbon Dioxide 21 L BUN 45 H Creatinine 3.16 H Glucose 159 H POC Glucose (mg/dL) Plasma Lactic Acid Grant 2.9 H* 2.8 H* Total Bilirubin 1.5 H AST 40 H Albumin 3.1 L Urine Appearance Urine Protein Urine Blood Ur Leukocyte Esterase Urine RBC Urine WBC Urine WBC Clumps Urine Bacteria 05/06/21 05/06/21 05/06/21 02:35 02:35 02:35 WBC RBC 3.56 L Hgb Hct MCV 104.2 H Plt Count 105 L Neutrophils # Lymphocytes # 0.4 L PT INR ABG pCO2 ABG pO2 ABG HCO3 ABG Total CO2 ABG O2 Saturation Chloride 109 H Carbon Dioxide 17 L BUN 46 H Creatinine 2.42 H Glucose 141 H POC Glucose (mg/dL) Plasma Lactic Acid Grant 3.0 H* Total Bilirubin AST 44 H Albumin 3.1 L Urine Appearance Urine Protein Urine Blood Ur Leukocyte Esterase Urine RBC Urine WBC Urine WBC Clumps Urine Bacteria 05/06/21 05/06/21 05/06/21 03:05 04:30 05:35 WBC RBC Hgb Hct MCV Plt Count Neutrophils # Lymphocytes # PT INR ABG pCO2 24 L ABG pO2 270 H ABG HCO3 16 L ABG Total CO2 17 L ABG O2 Saturation 100.0 H Chloride Carbon Dioxide BUN Creatinine Glucose POC Glucose (mg/dL) 164 H Plasma Lactic Acid Grant 2.6 H* Total Bilirubin AST Albumin Urine Appearance Urine Protein Urine Blood Ur Leukocyte Esterase Urine RBC Urine WBC Urine WBC Clumps Urine Bacteria 05/06/21 05/06/21 06:40 11:28 WBC RBC Hgb Hct MCV Plt Count Neutrophils # Lymphocytes # PT INR ABG pCO2 ABG pO2 ABG HCO3 ABG Total CO2 ABG O2 Saturation Chloride Carbon Dioxide BUN Creatinine Glucose POC Glucose (mg/dL) 171 H 143 H Plasma Lactic Acid Grant Total Bilirubin AST Albumin Urine Appearance Urine Protein Urine Blood Ur Leukocyte Esterase Urine RBC Urine WBC Urine WBC Clumps Urine Bacteria - Diagnostic Findings Chest x-ray: image reviewed Assessment and Plan Plan: 1 altered mental status, likely secondary to sepsis induced metabolic encephalopathy. No seizure activity. No focal neurological deficit. Neuro workup is in progress 2 UTI with sepsis most likely secondary to gram-negative bacteria. Suspect recurrent E. coli urinary tract infection septicemia. Currently on IV Rocephin 2 g in addition to IV fluids. He received a total of 3 L of IV fluid. Hemodynamically stable on no pressors 3 paroxysmal atrial fibrillation current rhythm is sinus. The patient was given a bolus of amiodarone 150 mg 1 with good results 4 history of fall with left fib/tib Fracture, seen by orthopedic surgery during an earlier admission and the patient is currently being managed conservatively through a boot 5 obesity with a BMI of 37.8 6 history of smoking 7 history of schizoaffective disorder Plan Continue IV fluids at the same rate with normal saline at the rate of 130s's an hour Continue 2 g of Rocephin every 24 hours Urine and blood cultures Monitor cardiac rhythm and the rhythm is sinus for now Lovenox 40 prophylaxis 40 mg subcu every 24 hours Neuro workup regarding altered mentation. MRI and EEG is in progress Check valproic acid levels Restart valproic acid 500 mg IV every 12 hours Resume Synthroid Monitor this patient's progress in the intensive care unit. We'll continue to follow.
[2021-05-06] MEDS: VALPROATE SODIUM 500 MG in SODIUM CHLORIDE 0.9% 100 ML IVPB SCH ×2 (11:58→22:30)
[2021-05-06] MEDS ORDERED: LORazepam 2 MG/ML INJ IV PRN (12:34)
--- NOTE | 2021-05-06 13:11 | EEG ---
ELECTROENCEPHALOGRAM REPORT DATE OF SERVICE: 05/06/2021 CLINICAL HISTORY: This is a 56-year-old woman who presented for altered mental status and has body jerks. The video EEG is obtained to evaluate for seizure epileptiform activity. RELEVANT MEDICATION: The patient is not on any antiepileptic drugs. EEG TYPE: A routine 21 channel EEG is performed with video using the 10/20 electrode placement system. DESCRIPTION: Wakefulness is only obtained. During wakefulness, the background consists of low to moderate voltage of 3 to 4 hertz delta activity that is nonrhythmic intermixed with theta activity. There is no sleep architecture seen. There is no focal slowing seen. There is significant myogenic artifact over the left hemisphere. Interictal and ictal is none. ACTIVATION PROCEDURES: Photic stimulation did not evoke a posterior driving response. There is no abnormality during the photic stimulation. Hyperventilation is not performed. CLINICAL INTERPRETATION: This is an abnormal routine EEG. The background slowing is suggestive of moderate to severe encephalopathy. There are no focal slowing, epileptiform discharges or seizure on the EEG. Clinical correlation is recommended. MMCHAD / IRAIDA: [id number] / MTDD
--- NOTE | 2021-05-06 14:19 | MR ---
EXAMINATION TYPE: MR brain wo con DATE OF EXAM: 05/06/2021 COMPARISON: CT brain from yesterday and February 21, 2021. HISTORY: Jerking motion and nonverbal. TECHNIQUE: Multiplanar, multisequence imaging of the brain and brainstem is performed without IV cont rast. FINDINGS: Diffusion weighted images demonstrate no evidence of a recent infarct or other diffusion abnormality. There is moderate ventricular and sulcal prominence greatest over the bilateral frontal lobes redemon strated. Scattered areas of T2 hyperintensity throughout the superficial, deep, and periventricular w zora matter are noted. Midline structures demonstrate normal morphology. Thinning of the corpus callosum is present. The cr aniocervical junction appears within normal limits. Normal vascular flow voids are present. Some amy on artifact at level of globes. Patchy opacity left ethmoid sinuses. IMPRESSION: No MRI evidence for recent infarct. Moderate diffuse cerebral atrophy greatest over bilat eral frontal lobes somewhat prominent for patient's chronologic age with mild to moderate nonspecific white matter changes favored product of chronic small vessel ischemic change.
[2021-05-06] MEDS ORDERED: SODIUM CHLORIDE 0.9% 1,000 ML IV ONE (16:27)
[2021-05-06 18:16] LABS: Glucose,Whole Blood 114 mg/dL (75-99)
[2021-05-06] MEDS: NOREPINEPHRINE 4 MG in SODIUM CHLORIDE 0.9% 250 ML IV SCH (20:06)
--- NOTE | 2021-05-06 22:45 | P.HPIM ---
History of Present Illness H&P Date: 05/06/21 Chief Complaint: Altered mentation History of presenting complaint: This is a 56-year-old patient, presented to ER yesterday evening with altered mental status. Came in with the EMS with fever and tachycardia. Symptoms had been going for about 24 hours. Patient was not verbalizing anything in the ER. Per the EMS report: Family stated that patient had become confused for 2 days. Has stopped talking yesterday. Had not eaten or drank anything for last refill Ross. He also noticed that patient was breathing heavy was hypoxic and tachycardic. Upon getting admitted to the floor overnight patient been having fevers. Ice packs were ordered. Patient is tachycardic. Lethargic. Patient already received 1 dose of ceftriaxone in the ER. An early in the night is sta rted on IV Zosyn. A team was called and patient smoked in ICU. Patient remains less responsive. Only to tactile stimuli she will move a bit.. Not answering questions. Eyes close. Consultations were placed to entrepreneur, neurology, ID. Patient does live with his son and girlfriend who takes care of the patient. Review of systems: Could not be obtained because patient is lethargic Past medical history to include: Atrial fibrillation, bibasilar fibrotic lung changes with honeycombing, wilbert izoaffective disorder, nicotine use, in February of this year patient did have a left tibial plate to and left proximal fibular fracture Social history: Patient lives with her son and girlfriend, or take care of her. Smoker. Marijuana use history of Family history: Could not be obtained. Physical examination: VITAL SIGNS: 101.5, 117, 21, 86/56, 97% on nasal cannula GENERAL: BMI 37.8, laying in bed, lethargic. EYES: Pupils equal. Conjunctiva normal. HEENT: External appearance of nose and ears normal, oral cavity mucous membranes. NECK: JVD unable to assess; masses not palpable. HEART: First and second heart sounds are normal; no edema. LUNGS: Respiratory rate increased; decreased breath sounds. ABDOMEN: Soft, nontender, liver spleen not palpable, no masses palpable. PSYCH: Lethargic, this responded to stimuli/painful. Unable to assessl. NEUROLOGICAL: Cranial nerves grossly intact; no facial asymmetry, and unable to assess power and sensation. Patient does respond to painful stimuli. LYMPHATICS: No lymph nodes palpable in the axilla and neck INVESTIGATIONS, reviewed in the clinical context: WBC 7.8 hemoglobin 12.1 platelets 105 potassium 5 bicarb 17 BUN 46 creatinine 2.4 to Admission labs: Potassium 4.4 BUN 45 creatinine 3.16 bilirubin 1.5 AST 40 ALT 25 albumin 3.1 UA positive for leukoesterase, WBC Coronavirus [BCR] not detected EKG tracing personally reviewed by me: Normal sinus rhythm. Heart rate 128 Chest x-ray film personally reviewed by me-bibasal infiltrates CT brain: Cerebral atrophy. Previous testing: CT chest and U for PE [02/24/2021] chronic parenchymal fibrotic changes greatest in the bases. With honeycombing. It is of groundglass opacities. 2-D echocardiogram: EF 55 have a 60%. [id number] tricuspid regurgitation. Some element of pulmonary hypertension Assessment and plan: -Patient presented with fevers altered mentation/metabolic/toxic encephalopathy. Patient has no focal findings. -Acute UTI from cystitis with sepsis. Patient recently has had UTI and Espinoza catheter was removed. IV ceftriaxone -Possible bilateral pneumonia, suspect gram-negative organism IV Zosyn -Septic shock IV fluids -Paroxysmal atrial fibrillation, currently in sinus rhythm Telemetry -Chronic pulmonary fibrosis especially at the bases with honeycombing -Schizoaffective disorder On antipsychotics -Acute COPD exacerbation, and a smoker DuoNeb. Inhaled steroids -Chronic nicotine dependence, cigarette smoker Nicotine patch -Lactic acidosis from sepsis IV fluids Patient was transferred to the ICU. IV ceftriaxone. Nasal cannula. Co nsultation to entrepreneur, neurology, ID. EEG, MRI of the brain ordered. Prognosis guarded. Given the complexity and severity of patient's condition expect the patient to be in the hospital at least for 2 overnights Past Medical History Past Medical History: No Reported History Additional Past Medical History / Comment(s): UTI, Left tibial fx, History of Any Multi-Drug Resistant Organisms: None Reported Past Surgical History: Cardiac Valve Replacement Additional Past Surgical History / Comment(s): left ovary removed Past Anesthesia/Blood Transfusion Reactions: No Reported Reaction Smoking Status: Current every day smoker - Past Family History Mother History Unknown: Yes Father History Unknown: Yes Medications and Allergies Home Medications Medication Instructions Recorded Confirmed Type DULoxetine HCL [Cymbalta] 30 mg PO DAILY 30 Days capsule. 08/13/20 05/05/21 Rx Levothyroxine Sodium [Synthroid] 50 mcg PO DAILY@0630 tab 08/13/20 05/05/21 Rx Albuterol Inhaler [Ventolin Hfa 2 puff INHALATION RT-Q4H PRN 02/21/21 05/05/21 History Inhaler] Divalproex ER [Depakote ER] 500 mg PO BID 02/21/21 05/05/21 History Oxybutynin Chloride [Ditropan] 5 mg PO BID 02/21/21 05/05/21 History Paliperidone [Invega] 3 mg PO DAILY 02/21/21 05/05/21 History Paliperidone [Invega] 6 mg PO HS 02/21/21 05/05/21 History Aspirin 81 mg PO DAILY #30 chew 02/25/21 05/05/21 Rx Allergies Allergy/AdvReac Type Severity Reaction Status Date / Time acetaminophen [From Vicodin] Allergy Rash/Hives Verified 05/05/21 19:59 hydrocodone [From Vicodin] Allergy Rash/Hives Verified 05/05/21 19:59 Physical Exam Vitals: Vital Signs Temp Pulse Pulse Resp BP BP Pulse Ox 05/06/21 09:00 88 19 83/50 96 05/06/21 08:10 83 23 83/50 100 05/06/21 08:00 97.7 F 90 17 96/50 100 05/06/21 07:50 92 23 96/50 100 05/06/21 07:40 92 8 L 119/47 100 05/06/21 07:30 96 20 109/36 100 05/06/21 07:20 93 18 109/36 98 05/06/21 07:10 93 20 86/51 05/06/21 07:00 96 17 100/57 94 L 05/06/21 06:50 90 24 97/49 100 05/06/21 06:40 96 23 87/59 96 05/06/21 06:30 94 19 90/45 90 L 05/06/21 06:20 95 15 90/45 94 L 05/06/21 06:10 151 H 19 116/90 92 L 05/06/21 06:00 99.4 F 146 H 26 H 116/90 100 05/06/21 05:50 147 H 21 93/68 100 05/06/21 05:40 125 H 22 95/54 100 05/06/21 05:30 100.4 F H 121 H 21 95/54 98 05/06/21 05:20 140 H 20 82/51 100 05/06/21 05:10 154 H 23 82/51 99 05/06/21 05:00 134 H 25 H 82/51 97 05/06/21 04:50 147 H 22 86/56 05/06/21 04:40 101 H 22 86/56 05/06/21 04:30 101.5 F H 117 H 21 05/06/21 04:23 111 H 31 H 05/06/21 02:50 84 L 05/06/21 00:00 100.7 F H 116 H 18 113/87 99 05/05/21 22:00 103.1 F H 117 H 20 125/95 100 05/05/21 20:49 102.1 F H 122 H 26 H 110/87 95 05/05/21 19:52 102.9 F H 124 H 32 H 117/94 95 05/05/21 19:27 102.2 F H 122 H 18 102/76 89 L Intake and Output 05/05/21 05/06/21 05/06/21 22:59 06:59 14:59 Intake Total 1130 390 Output Total 450 420 Balance 680 -30 Intake: IV 1130 390 Lactated Ringers 1,000 ml 1000 @ 999 mls/hr IV .Q1H1M ONE Rx#:[id number] Sodium Chloride 0.9% 1, 130 390 000 ml @ 130 mls/hr IV . Q7H42M [facility] Rx#:[id number] Output: Urine 450 420 Other: Voiding Method Indwelling Catheter Indwelling Catheter # Bowel Movements 1 Weight 99.79 kg 99.79 kg Results CBC & Chem 7: 05/06/21 02:35 05/06/21 02:35 Labs: Abnormal Lab Results - Last 24 Hours (Table) 05/05/21 05/05/21 05/05/21 Range/Units 19:47 19:47 19:47 WBC 13.7 H (3.8-10.6) k/uL RBC 3.33 L (3.80-5.40) m/uL Hgb 11.2 L (11.4-16.0) gm/dL Hct 33.3 L (34.0-46.0) % MCV (80.0-100.0) fL Plt Count (150-450) k/uL Neutrophils # 12.2 H (1.3-7.7) k/uL Lymphocytes # 0.7 L (1.0-4.8) k/uL PT 14.1 H (9.0-12.0) sec INR 1.4 H (<1.2) ABG pCO2 (35-45) mmHg ABG pO2 (83-108) mmHg ABG HCO3 (21-25) mmol/L ABG Total CO2 (19-24) mmol/L ABG O2 Saturation (94-97) % Chloride (98-107) mmol/L Carbon Dioxide (22-30) mmol/L BUN (7-17) mg/dL Creatinine (0.52-1.04) mg/dL Glucose (74-99) mg/dL POC Glucose (mg/dL) (75-99) mg/dL Plasma Lactic Acid Grant (0.7-2.0) mmol/L Total Bilirubin (0.2-1.3) mg/dL AST (14-36) U/L Albumin (3.5-5.0) g/dL Urine Appearance Turbid H (Clear) Urine Protein 2+ H (Negative) Urine Blood Moderate H (Negative) Ur Leukocyte Esterase Large H (Negative) Urine RBC >182 H (0-5) /hpf Urine WBC >182 H (0-5) /hpf Urine WBC Clumps Many H (None) /hpf Urine Bacteria Many H (None) /hpf 05/05/21 05/05/21 05/05/21 Range/Units 19:47 19:47 23:09 WBC (3.8-10.6) k/uL RBC (3.80-5.40) m/uL Hgb (11.4-16.0) gm/dL Hct (34.0-46.0) % MCV (80.0-100.0) fL Plt Count (150-450) k/uL Neutrophils # (1.3-7.7) k/uL Lymphocytes # (1.0-4.8) k/uL PT (9.0-12.0) sec INR (<1.2) ABG pCO2 (35-45) mmHg ABG pO2 (83-108) mmHg ABG HCO3 (21-25) mmol/L ABG Total CO2 (19-24) mmol/L ABG O2 Saturation (94-97) % Chloride (98-107) mmol/L Carbon Dioxide 21 L (22-30) mmol/L BUN 45 H (7-17) mg/dL Creatinine 3.16 H (0.52-1.04) mg/dL Glucose 159 H (74-99) mg/dL POC Glucose (mg/dL) (75-99) mg/dL Plasma Lactic Acid Grant 2.9 H* 2.8 H* (0.7-2.0) mmol/L Total Bilirubin 1.5 H (0.2-1.3) mg/dL AST 40 H (14-36) U/L Albumin 3.1 L (3.5-5.0) g/dL Urine Appearance (Clear) Urine Protein (Negative) Urine Blood (Negative) Ur Leukocyte Esterase (Negative) Urine RBC (0-5) /hpf Urine WBC (0-5) /hpf Urine WBC Clumps (None) /hpf Urine Bacteria (None) /hpf 05/06/21 05/06/21 05/06/21 Range/Units 02:35 02:35 02:35 WBC (3.8-10.6) k/uL RBC 3.56 L (3.80-5.40) m/uL Hgb (11.4-16.0) gm/dL Hct (34.0-46.0) % MCV 104.2 H (80.0-100.0) fL Plt Count 105 L (150-450) k/uL Neutrophils # (1.3-7.7) k/uL Lymphocytes # 0.4 L (1.0-4.8) k/uL PT (9.0-12.0) sec INR (<1.2) ABG pCO2 (35-45) mmHg ABG pO2 (83-108) mmHg ABG HCO3 (21-25) mmol/L ABG Total CO2 (19-24) mmol/L ABG O2 Saturation (94-97) % Chloride 109 H (98-107) mmol/L Carbon Dioxide 17 L (22-30) mmol/L BUN 46 H (7-17) mg/dL Creatinine 2.42 H (0.52-1.04) mg/dL Glucose 141 H (74-99) mg/dL POC Glucose (mg/dL) (75-99) mg/dL Plasma Lactic Acid Grant 3.0 H* (0.7-2.0) mmol/L Total Bilirubin (0.2-1.3) mg/dL AST 44 H (14-36) U/L Albumin 3.1 L (3.5-5.0) g/dL Urine Appearance (Clear) Urine Protein (Negative) Urine Blood (Negative) Ur Leukocyte Esterase (Negative) Urine RBC (0-5) /hpf Urine WBC (0-5) /hpf Urine WBC Clumps (None) /hpf Urine Bacteria (None) /hpf 05/06/21 05/06/21 05/06/21 Range/Units 03:05 04:30 05:35 WBC (3.8-10.6) k/uL RBC (3.80-5.40) m/uL Hgb (11.4-16.0) gm/dL Hct (34.0-46.0) % MCV (80.0-100.0) fL Plt Count (150-450) k/uL Neutrophils # (1.3-7.7) k/uL Lymphocytes # (1.0-4.8) k/uL PT (9.0-12.0) sec INR (<1.2) ABG pCO2 24 L (35-45) mmHg ABG pO2 270 H (83-108) mmHg ABG HCO3 16 L (21-25) mmol/L ABG Total CO2 17 L (19-24) mmol/L ABG O2 Saturation 100.0 H (94-97) % Chloride (98-107) mmol/L Carbon Dioxide (22-30) mmol/L BUN (7-17) mg/dL Creatinine (0.52-1.04) mg/dL Glucose (74-99) mg/dL POC Glucose (mg/dL) 164 H (75-99) mg/dL Plasma Lactic Acid Grant 2.6 H* (0.7-2.0) mmol/L Total Bilirubin (0.2-1.3) mg/dL AST (14-36) U/L Albumin (3.5-5.0) g/dL Urine Appearance (Clear) Urine Protein (Negative) Urine Blood (Negative) Ur Leukocyte Esterase (Negative) Urine RBC (0-5) /hpf Urine WBC (0-5) /hpf Urine WBC Clumps (None) /hpf Urine Bacteria (None) /hpf 05/06/21 Range/Units 06:40 WBC (3.8-10.6) k/uL RBC (3.80-5.40) m/uL Hgb (11.4-16.0) gm/dL Hct (34.0-46.0) % MCV (80.0-100.0) fL Plt Count (150-450) k/uL Neutrophils # (1.3-7.7) k/uL Lymphocytes # (1.0-4.8) k/uL PT (9.0-12.0) sec INR (<1.2) ABG pCO2 (35-45) mmHg ABG pO2 (83-108) mmHg ABG HCO3 (21-25) mmol/L ABG Total CO2 (19-24) mmol/L ABG O2 Saturation (94-97) % Chloride (98-107) mmol/L Carbon Dioxide (22-30) mmol/L BUN (7-17) mg/dL Creatinine (0.52-1.04) mg/dL Glucose (74-99) mg/dL POC Glucose (mg/dL) 171 H (75-99) mg/dL Plasma Lactic Acid Grant (0.7-2.0) mmol/L Total Bilirubin (0.2-1.3) mg/dL AST (14-36) U/L Albumin (3.5-5.0) g/dL Urine Appearance (Clear) Urine Protein (Negative) Urine Blood (Negative) Ur Leukocyte Esterase (Negative) Urine RBC (0-5) /hpf Urine WBC (0-5) /hpf Urine WBC Clumps (None) /hpf Urine Bacteria (None) /hpf Microbiology - Last 24 Hours (Table) 05/05/21 19:45 Blood Culture Gram Stain - Preliminary Blood 05/05/21 19:45 Blood Culture - Final Blood 05/05/21 19:30 Blood Culture - Final Blood 05/05/21 19:47 Urine Culture - Preliminary Urine,Voided
--- NOTE | 2021-05-06 23:07 | P.CONS ---
History of Present Illness - Reason for Consult Consult date: 05/06/21 sepsis Requesting physician: Perry Rock - Chief Complaint mental status changes x 1 day - History of Present Illness History of present illness : Patient is a 56-year female who was recently admitted to the hospital after a fall with left tibial plateau fracture that was treated conservatively patient also have urine retention during that admission requiring a Espinoza catheter placement and subsequent discharged to the care home after stabilization the patient was discharged home and apparently the patient Espinoza catheter seem to have been discontinued patient presented to [facility] ER yesterday for evaluation of mental status changes with the symptom getting worse for 24 hours before EMS was called and patient was noticed to be febrile and tachycardic lethargic and on arrival to the ER patient did have a fever of 102.2 F patient with no hypoxemia did have white count of 13.7 with a left shift BUN and creatinine are elevated lactic acid was elevated liver enzymes are normal urine was positive patient was initially admitted to the [facility] however did have a hypertension last night for the patient was transferred to the ICU and has received fluid boluses blood culture drawn showed a gram- negative bacilli that has prompted this infectious disease consultation was information has been repeated from review the chart and talking nursing staff the patient herself was lethargic and unable to provide any history Review of system: Positive point has been mentioned in HPI complete review could not be obtained because of underlying mental status Past medical history : Reviewed, documented below Past surgical history : Reviewed, documented below Social history: Reviewed, documented below Medications: Reviewed, as documented below GENERAL DESCRIPTION: Middle-aged female lying in bed, no distress. No tachypnea or accessory muscle of respiration use. HEENT: Shows Pallor , no scleral icterus. Oral mucous membrane is dry. NECK: Trachea central, no thyromegaly. LUNGS: Unlabored breathing. Decreased breath sound at the base. No wheeze or crackle. HEART: S1, S2, regular rate and rhythm. ABDOMEN: Soft, no tenderness , guarding or rigidity EXTREMITIES: No edema of feet. SKIN: No rash, no masses palpable. NEUROLOGICAL: The patient is lethargic orientation could not determine LABS AND RADIOLOGY: Reviewed results see below Assessment : 1-patient presented to hospital with sepsis in this patient who did have a fever elevated white count elevated lactic acid significantly positive UA likely source is urinary tract infection 2-[id number]-[id number] bacteremia secondary urinary source Plan: 1-Rocephin 2 g IV daily 2-gentle IV fluid 3-check ultrasound of the kidneys to make sure no evidence of any structural abnormality We will follow on clinical condition and cultures to further adjust medication if needed Thank you for this consultation we will follow the patient along with you Past Medical History Past Medical History: No Reported History Additional Past Medical History / Comment(s): UTI, Left tibial fx, History of Any Multi-Drug Resistant Organisms: None Reported Past Surgical History: Cardiac Valve Replacement Additional Past Surgical History / Comment(s): left ovary removed Past Anesthesia/Blood Transfusion Reactions: No Reported Reaction Smoking Status: Current every day smoker - Past Family History Mother History Unknown: Yes Father History Unknown: Yes Medications and Allergies Home Medications Medication Instructions Recorded Confirmed Type DULoxetine HCL [Cymbalta] 30 mg PO DAILY 30 Days capsule. 08/13/20 05/05/21 Rx Levothyroxine Sodium [Synthroid] 50 mcg PO DAILY@0630 tab 08/13/20 05/05/21 Rx Albuterol Inhaler [Ventolin Hfa 2 puff INHALATION RT-Q4H PRN 02/21/21 05/05/21 History Inhaler] Divalproex ER [Depakote ER] 500 mg PO BID 02/21/21 05/05/21 History Oxybutynin Chloride [Ditropan] 5 mg PO BID 02/21/21 05/05/21 History Paliperidone [Invega] 3 mg PO DAILY 02/21/21 05/05/21 History Paliperidone [Invega] 6 mg PO HS 02/21/21 05/05/21 History Aspirin 81 mg PO DAILY #30 chew 02/25/21 05/05/21 Rx Allergies Allergy/AdvReac Type Severity Reaction Status Date / Time acetaminophen [From Vicodin] Allergy Rash/Hives Verified 05/05/21 19:59 hydrocodone [From Vicodin] Allergy Rash/Hives Verified 05/05/21 19:59 Physical Exam Vitals: Vital Signs Temp Pulse Pulse Resp BP BP Pulse Ox 05/06/21 11:00 92 20 92/60 94 L 05/06/21 10:00 86 18 88/56 96 05/06/21 09:00 88 19 83/50 96 05/06/21 08:10 83 23 83/50 100 05/06/21 08:00 97.7 F 90 17 96/50 100 05/06/21 07:50 92 23 96/50 100 05/06/21 07:40 92 8 L 119/47 100 05/06/21 07:30 96 20 109/36 100 05/06/21 07:20 93 18 109/36 98 05/06/21 07:10 93 20 86/51 05/06/21 07:00 96 17 100/57 94 L 05/06/21 06:50 90 24 97/49 100 05/06/21 06:40 96 23 87/59 96 05/06/21 06:30 94 19 90/45 90 L 05/06/21 06:20 95 15 90/45 94 L 05/06/21 06:10 151 H 19 116/90 92 L 05/06/21 06:00 99.4 F 146 H 26 H 116/90 100 05/06/21 05:50 147 H 21 93/68 100 05/06/21 05:40 125 H 22 95/54 100 05/06/21 05:30 100.4 F H 121 H 21 95/54 98 05/06/21 05:20 140 H 20 82/51 100 05/06/21 05:10 154 H 23 82/51 99 05/06/21 05:00 134 H 25 H 82/51 97 05/06/21 04:50 147 H 22 86/56 05/06/21 04:40 101 H 22 86/56 05/06/21 04:30 101.5 F H 117 H 21 05/06/21 04:23 111 H 31 H 05/06/21 02:50 84 L 05/06/21 00:00 100.7 F H 116 H 18 113/87 99 05/05/21 22:00 103.1 F H 117 H 20 125/95 100 05/05/21 20:49 102.1 F H 122 H 26 H 110/87 95 05/05/21 19:52 102.9 F H 124 H 32 H 117/94 95 05/05/21 19:27 102.2 F H 122 H 18 102/76 89 L Intake and Output 05/05/21 05/06/21 05/06/21 22:59 06:59 14:59 Intake Total 1130 650 Output Total 450 660 Balance 680 -10 Intake: IV 1130 650 Lactated Ringers 1,000 ml 1000 @ 999 mls/hr IV .Q1H1M [facility] Rx#:[id number] Sodium Chloride 0.9% 1, 130 650 000 ml @ 130 mls/hr IV . Q7H42M [facility] Rx#:[id number] Output: Urine 450 660 Other: Voiding Method Indwelling Catheter Indwelling Catheter # Bowel Movements 1 Weight 99.79 kg 99.79 kg Results CBC & Chem 7: 05/06/21 02:35 05/06/21 02:35 Labs: Abnormal Lab Results - Last 24 Hours (Table) 05/05/21 05/05/21 05/05/21 Range/Units 19:47 19:47 19:47 WBC 13.7 H (3.8-10.6) k/uL RBC 3.33 L (3.80-5.40) m/uL Hgb 11.2 L (11.4-16.0) gm/dL Hct 33.3 L (34.0-46.0) % MCV (80.0-100.0) fL Plt Count (150-450) k/uL Neutrophils # 12.2 H (1.3-7.7) k/uL Lymphocytes # 0.7 L (1.0-4.8) k/uL PT 14.1 H (9.0-12.0) sec INR 1.4 H (<1.2) ABG pCO2 (35-45) mmHg ABG pO2 (83-108) mmHg ABG HCO3 (21-25) mmol/L ABG Total CO2 (19-24) mmol/L ABG O2 Saturation (94-97) % Chloride (98-107) mmol/L Carbon Dioxide (22-30) mmol/L BUN (7-17) mg/dL Creatinine (0.52-1.04) mg/dL Glucose (74-99) mg/dL POC Glucose (mg/dL) (75-99) mg/dL Plasma Lactic Acid Grant (0.7-2.0) mmol/L Total Bilirubin (0.2-1.3) mg/dL AST (14-36) U/L Albumin (3.5-5.0) g/dL Urine Appearance Turbid H (Clear) Urine Protein 2+ H (Negative) Urine Blood Moderate H (Negative) Ur Leukocyte Esterase Large H (Negative) Urine RBC >182 H (0-5) /hpf Urine WBC >182 H (0-5) /hpf Urine WBC Clumps Many H (None) /hpf Urine Bacteria Many H (None) /hpf 05/05/21 05/05/21 05/05/21 Range/Units 19:47 19:47 23:09 WBC (3.8-10.6) k/uL RBC (3.80-5.40) m/uL Hgb (11.4-16.0) gm/dL Hct (34.0-46.0) % MCV (80.0-100.0) fL Plt Count (150-450) k/uL Neutrophils # (1.3-7.7) k/uL Lymphocytes # (1.0-4.8) k/uL PT (9.0-12.0) sec INR (<1.2) ABG pCO2 (35-45) mmHg ABG pO2 (83-108) mmHg ABG HCO3 (21-25) mmol/L ABG Total CO2 (19-24) mmol/L ABG O2 Saturation (94-97) % Chloride (98-107) mmol/L Carbon Dioxide 21 L (22-30) mmol/L BUN 45 H (7-17) mg/dL Creatinine 3.16 H (0.52-1.04) mg/dL Glucose 159 H (74-99) mg/dL POC Glucose (mg/dL) (75-99) mg/dL Plasma Lactic Acid Grant 2.9 H* 2.8 H* (0.7-2.0) mmol/L Total Bilirubin 1.5 H (0.2-1.3) mg/dL AST 40 H (14-36) U/L Albumin 3.1 L (3.5-5.0) g/dL Urine Appearance (Clear) Urine Protein (Negative) Urine Blood (Negative) Ur Leukocyte Esterase (Negative) Urine RBC (0-5) /hpf Urine WBC (0-5) /hpf Urine WBC Clumps (None) /hpf Urine Bacteria (None) /hpf 05/06/21 05/06/21 05/06/21 Range/Units 02:35 02:35 02:35 WBC (3.8-10.6) k/uL RBC 3.56 L (3.80-5.40) m/uL Hgb (11.4-16.0) gm/dL Hct (34.0-46.0) % MCV 104.2 H (80.0-100.0) fL Plt Count 105 L (150-450) k/uL Neutrophils # (1.3-7.7) k/uL Lymphocytes # 0.4 L (1.0-4.8) k/uL PT (9.0-12.0) sec INR (<1.2) ABG pCO2 (35-45) mmHg ABG pO2 (83-108) mmHg ABG HCO3 (21-25) mmol/L ABG Total CO2 (19-24) mmol/L ABG O2 Saturation (94-97) % Chloride 109 H (98-107) mmol/L Carbon Dioxide 17 L (22-30) mmol/L BUN 46 H (7-17) mg/dL Creatinine 2.42 H (0.52-1.04) mg/dL Glucose 141 H (74-99) mg/dL POC Glucose (mg/dL) (75-99) mg/dL Plasma Lactic Acid Grant 3.0 H* (0.7-2.0) mmol/L Total Bilirubin (0.2-1.3) mg/dL AST 44 H (14-36) U/L Albumin 3.1 L (3.5-5.0) g/dL Urine Appearance (Clear) Urine Protein (Negative) Urine Blood (Negative) Ur Leukocyte Esterase (Negative) Urine RBC (0-5) /hpf Urine WBC (0-5) /hpf Urine WBC Clumps (None) /hpf Urine Bacteria (None) /hpf 05/06/21 05/06/21 05/06/21 Range/Units 03:05 04:30 05:35 WBC (3.8-10.6) k/uL RBC (3.80-5.40) m/uL Hgb (11.4-16.0) gm/dL Hct (34.0-46.0) % MCV (80.0-100.0) fL Plt Count (150-450) k/uL Neutrophils # (1.3-7.7) k/uL Lymphocytes # (1.0-4.8) k/uL PT (9.0-12.0) sec INR (<1.2) ABG pCO2 24 L (35-45) mmHg ABG pO2 270 H (83-108) mmHg ABG HCO3 16 L (21-25) mmol/L ABG Total CO2 17 L (19-24) mmol/L ABG O2 Saturation 100.0 H (94-97) % Chloride (98-107) mmol/L Carbon Dioxide (22-30) mmol/L BUN (7-17) mg/dL Creatinine (0.52-1.04) mg/dL Glucose (74-99) mg/dL POC Glucose (mg/dL) 164 H (75-99) mg/dL Plasma Lactic Acid Grant 2.6 H* (0.7-2.0) mmol/L Total Bilirubin (0.2-1.3) mg/dL AST (14-36) U/L Albumin (3.5-5.0) g/dL Urine Appearance (Clear) Urine Protein (Negative) Urine Blood (Negative) Ur Leukocyte Esterase (Negative) Urine RBC (0-5) /hpf Urine WBC (0-5) /hpf Urine WBC Clumps (None) /hpf Urine Bacteria (None) /hpf 05/06/21 05/06/21 Range/Units 06:40 11:28 WBC (3.8-10.6) k/uL RBC (3.80-5.40) m/uL Hgb (11.4-16.0) gm/dL Hct (34.0-46.0) % MCV (80.0-100.0) fL Plt Count (150-450) k/uL Neutrophils # (1.3-7.7) k/uL Lymphocytes # (1.0-4.8) k/uL PT (9.0-12.0) sec INR (<1.2) ABG pCO2 (35-45) mmHg ABG pO2 (83-108) mmHg ABG HCO3 (21-25) mmol/L ABG Total CO2 (19-24) mmol/L ABG O2 Saturation (94-97) % Chloride (98-107) mmol/L Carbon Dioxide (22-30) mmol/L BUN (7-17) mg/dL Creatinine (0.52-1.04) mg/dL Glucose (74-99) mg/dL POC Glucose (mg/dL) 171 H 143 H (75-99) mg/dL Plasma Lactic Acid Grant (0.7-2.0) mmol/L Total Bilirubin (0.2-1.3) mg/dL AST (14-36) U/L Albumin (3.5-5.0) g/dL Urine Appearance (Clear) Urine Protein (Negative) Urine Blood (Negative) Ur Leukocyte Esterase (Negative) Urine RBC (0-5) /hpf Urine WBC (0-5) /hpf Urine WBC Clumps (None) /hpf Urine Bacteria (None) /hpf Microbiology - Last 24 Hours (Table) 05/05/21 19:45 Blood Culture Gram Stain - Preliminary Blood 05/05/21 19:45 Blood Culture - Final Blood 05/05/21 19:30 Blood Culture - Final Blood 05/05/21 19:47 Urine Culture - Preliminary Urine,Voided
[2021-05-07 01:57] LABS: Glucose,Whole Blood 119 mg/dL (75-99)
[2021-05-07] MEDS: NICOTINE 21MG/24HR PATCH TRANSDERM SCH ×2 (03:25→08:06)
[2021-05-07 05:25] LABS: Basophils % (A) 0 %; Eosinophils % (A) 0 %; HCT 32.4 % (34.0-46.0); HGB 10.4 gm/dL (11.4-16.0); Hypochromasia Moderate; Lymphocytes # (A) 0.5 k/uL (1.0-4.8); Lymphocytes % (A) 5 %; MCH 33.6 pg (25.0-35.0); MCV 105.1 fL (80.0-100.0); Macrocytosis Moderate; Mean Platelet Volume 7.9; Monocytes # (A) 0.3 k/uL (0-1.0); Monocytes % (A) 3 %; Neutrophils # (A) 7.6 k/uL (1.3-7.7); Neutrophils % (A) 90 %; Platelet Count 111 k/uL (150-450); Poikilocytosis Slight; RBC 3.09 m/uL (3.80-5.40); RDW 14.4 % (11.5-15.5); WBC 8.5 k/uL (3.8-10.6)
[2021-05-07] MEDS: SODIUM CHLORIDE 0.9% 1,000 ML IV SCH ×3 (05:28→16:00)
[2021-05-07 05:36] LABS: Albumin 2.9 g/dL (3.5-5.0); Calcium 8.7 mg/dL (8.4-10.2); Total Bilirubin 0.5 mg/dL (0.2-1.3); Total Protein 6.2 g/dL (6.3-8.2)
[2021-05-07 05:36] LABS: Glucose,Whole Blood 89 mg/dL (75-99)
[2021-05-07] MEDS ORDERED: LORazepam 2 MG/ML INJ IV STA (05:41)
[2021-05-07] MEDS: LEVOTHYROXINE 50 MCG TAB PO SCH (06:42)
[2021-05-07] MEDS: BUDESONIDE 1 MG/2 ML NEBU INHALATION SCH ×2 (07:26→19:17)
[2021-05-07] MEDS: IPRATROPIUM-ALBUTEROL 3 ML NEB INHALATION SCH ×4 (07:26→19:18)
[2021-05-07] MEDS: NOREPINEPHRINE 4 MG in SODIUM CHLORIDE 0.9% 250 ML IV SCH ×2 (08:03→15:59)
[2021-05-07] MEDS: PANTOPRAZOLE 40 MG/10 ML VIAL IVP SCH (08:06)
--- NOTE | 2021-05-07 08:21 | US ---
EXAMINATION TYPE: US kidneys/renal and bladder DATE OF EXAM: 05/07/2021 COMPARISON: NONE CLINICAL HISTORY: uti and bacteremia. EXAM MEASUREMENTS: Right Kidney: 14.1 x 5.9 x 5.7 cm Left Kidney: 10.7 x 5.7 x 5.3 cm Technically difficult study performed portably in ICU on patient unable to cooperate for exam. Right Kidney: No hydronephrosis or masses seen Left Kidney: No hydronephrosis or masses seen Bladder: not seen, patient has catheter Bilateral Jets seen: No There is no evidence for hydronephrosis at this point in time. No nephrolithiasis is seen. No asad s are identified. IMPRESSION: Limited exam demonstrates no acute process as visualized.
--- NOTE | 2021-05-07 09:45 | P.PN ---
Subjective Progress Note Date: 05/07/21 The patient is seen at bedside and per nurse patient condition seems a bit worse today compared to yesterday. She is not as responsive and continues to jerks of her extremities. She was given Ativan 1mg at 5:45 am today because of her jerks and restlessness. Per the nurse she spiked a fever again today of 100.1F. Lumbar puncture could not be done yesterday since she received Lovenox and scheduled for today. MRI of brain is reported as no MRI evidence for recent infarct. Moderate diffuse cerebral atrophy greatest over bilateral frontal lobe somewhat prominent for patient chronologic age with the mild to moderate nonspecific white matter changes favored the product of chronic small vessel ischemic change. EEG on 05/06/2021 is abnormal routine EEG. The back was slowing suggestive of moderate to severe encephalopathy. There are no focal slowing, epileptiform discharges or seizure on the EEG. Clinical correlation is recommended The blood cultures is positive for E.coli. Pending urine cultures. Depakote level: 24.2 (subtherapeutic. Normal levels are between 50-120). Vitamin B12: 401 (normal). Folate: 8.0 (normal). TSH: 1.770 (normal). Objective - Vital Signs Vital signs: Vital Signs Temp 100.1 F H 05/07/21 08:00 Pulse 106 H 05/07/21 08:00 Resp 16 05/07/21 08:00 BP 112/66 05/07/21 08:00 Pulse Ox 95 05/07/21 08:00 Intake & Output 05/06/21 05/07/21 05/07/21 18:59 06:59 18:59 Intake Total 2710 1814.000 260 Output Total 1390 820 180 Balance 1320 994.000 80 Weight 115.9 kg Intake: IV 2710 1560 260 Sodium Chloride 0.9% 1, 1560 1560 260 000 ml @ 130 mls/hr IV . Q7H42M [facility] Rx#:[id number] Sodium Chloride 0.9% 1, 1000 000 ml @ 999 mls/hr IV . Q1H1M [facility] Rx#:[id number] Valproate Sodium 500 mg 100 In Sodium Chloride 0.9% 100 ml @ 100 mls/hr IVPB Q12H [facility] Rx#:[id number] cefTRIAXone 2 gm In 50 Sodium Chloride 0.9% 50 ml @ 100 mls/hr IVPB Q24HR [facility] Rx#:[id number] Intake, IV Titration 254.000 Amount Norepinephrine 4 mg In 254.000 Sodium Chloride 0.9% 250 ml @ 0.05 MCG/KG/MIN 19. 01 mls/hr IV .[id number] [facility] Rx#:[id number] Output: Urine 1390 820 180 Other: Voiding Method Indwelling Catheter Indwelling Catheter # Bowel Movements 1 - Exam GENERAL: The patient is morbid obese woman, lying in bed and does not seem in acute distress. NEUROLOGICAL: Limited because of her condition and received sedation (Ativan 1mg at 5:45am today). Higher mental function: The patient is very drowsy but awakeable to voice. Nods with options to her name. Otherwise not responding to place or time. Was able to show thumbs up on both hand to commands. Closed her eyes to command and opened her eyes. It is hard to assess language. No neglect. Cranial nerves: The pupils are round, equal and reactive to light. Visual wright and extraocular movement are hard to assess. No facial weakness. Hard to assess the rest of cranial nerves. Motor: The strength is able to lift bilateral upper above gravity. Increase tone in uppers. Has myoclonic jerks and has repeat episodes of raising arms up and lowering them. Cerebellum: Could not assess. Sensation: Could not assess. Reflexes (right/left): 2+ throughout. Plantars are mute bilaterally. WORK-UP: MRI of brain is reported as no MRI evidence for recent infarct. Moderate diffuse cerebral atrophy greatest over bilateral frontal lobe somewhat prominent for patient chronologic age with the mild to moderate nonspecific white matter changes favored the product of chronic small vessel ischemic change. EEG on 05/06/2021 is abnormal routine EEG. The back was slowing suggestive of moderate to severe encephalopathy. There are no focal slowing, epileptiform discharges or seizure on the EEG. Clinical correlation is recommended The blood cultures is positive for E.coli. Pending urine cultures. Depakote level: 24.2 (subtherapeutic. Normal levels are between 50-120). Vitamin B12: 401 (normal). Folate: 8.0 (normal). TSH: 1.770 (normal). - Labs CBC & Chem 7: 05/07/21 05:05 05/07/21 05:05 Labs: Abnormal Lab Results - Last 24 Hours (Table) 05/06/21 05/06/21 05/07/21 Range/Units 11:28 18:13 01:46 RBC (3.80-5.40) m/uL Hgb (11.4-16.0) gm/dL Hct (34.0-46.0) % MCV (80.0-100.0) fL Plt Count (150-450) k/uL Lymphocytes # (1.0-4.8) k/uL Chloride (98-107) mmol/L Carbon Dioxide (22-30) mmol/L BUN (7-17) mg/dL Creatinine (0.52-1.04) mg/dL Glucose (74-99) mg/dL POC Glucose (mg/dL) 143 H 114 H 119 H (75-99) mg/dL Total Protein (6.3-8.2) g/dL Albumin (3.5-5.0) g/dL 05/07/21 05/07/21 Range/Units 05:05 05:05 RBC 3.09 L (3.80-5.40) m/uL Hgb 10.4 L (11.4-16.0) gm/dL Hct 32.4 L (34.0-46.0) % MCV 105.1 H (80.0-100.0) fL Plt Count 111 L (150-450) k/uL Lymphocytes # 0.5 L (1.0-4.8) k/uL Chloride 118 H (98-107) mmol/L Carbon Dioxide 15 L (22-30) mmol/L BUN 43 H (7-17) mg/dL Creatinine 1.37 H (0.52-1.04) mg/dL Glucose 113 H (74-99) mg/dL POC Glucose (mg/dL) (75-99) mg/dL Total Protein 6.2 L (6.3-8.2) g/dL Albumin 2.9 L (3.5-5.0) g/dL Microbiology - Last 24 Hours (Table) 05/05/21 19:45 Blood Culture Gram Stain - Preliminary Blood 05/05/21 19:30 Blood Culture Gram Stain - Preliminary Blood Blood Culture - Preliminary Escherichia coli 05/05/21 19:45 Blood Culture - Final Blood 05/05/21 19:30 Blood Culture - Final Blood 05/05/21 19:47 Urine Culture - Preliminary Urine,Voided Assessment and Plan Assessment: Altered mental status due to likely septic encephalopathy from acute urinary tract infection as well as component metabolic encephalopathy (acute kidney insuffiency). Rule out central infection. Myoclonic jerks likely due to above. Rule out seizures. Acute kidney insufficiency--trending down Acute on chronic urinary tract infection History of fall with left tibial/fibial fracture in 02/2021 History of Schizoaffective disorder Plan: * Pending lumbar puncture. Dr. Mcintosh spoke with me and notified me that he attempted the lumbar puncture and it was bloody and did not seem to resolve with time. I ordered STAT CT HEAD AND CT LUMBAR REGION. * Increase her home dose of Depakote from 500mg 1 tab bid (used for her mood stablizer) to 750mg 1 tab bid (which help mood and has antiepileptic effect). * Patient is on ceftriaxone for her urinary tract infection will defer the management to the ICU as well as the primary team. * Infection disease team is on board. * We'll defer the rest of the medical management to the primary as well as ICU team. Plan was discussed with the patient ICU attending and nurse. UPDATE: Repeat CT of the head is reported as age-related atrophic and chronic small vessel ischemic change without acute intracranial process seen at this time. CT of lumbar was reported as suboptimal study but no acute finding are evident. In the body they reported it is reported that the patient has moderate broad disc bulge and mild to moderate facet arthropathy at L3-L4. There is a moderate to advanced facet arthropathy and ligamentum flavum hypertrophy with moderate broad disc bulge at L4-L5 and there is moderate facet arthropathy at L5-S1. CSF study is clear, colorless, 0 red blood cell, 0 nucleated cells, total protein is 48 (NORMAL), glucose 72 (borderline low high level. Normal is 40- 70). CSF is negative for meningoencephalitis. John Laws MD Neuro-Hospitalist Time with Patient: Less than 30
--- NOTE | 2021-05-07 09:58 | P.PN ---
Subjective Progress Note Date: 05/07/21 Principal diagnosis: Altered mental status, sepsis, gram-negative bacteremia This is a 56-year-old here patient was hospitalized yesterday because of altered mental status, the patient was nonverbal and she was jerking and she was having Reiger's and high-grade fever and tachycardia. She was diagnosed having a UTI and this was a recurrent event. She initially she was admitted to the medical floor and following that the patient was transferred to the intensive care unit as the patient's mental status was quite low and the patient was having high- grade fever and questionable seizure activity. For that reason, the patient got transferred to the intensive care unit. The working diagnosis for now remains and recurrent urine checked infection. Mother the patient was in the hospital approximately a few months back and the patient had an E. coli UTI and sepsis. Suspect the same for now. On today's evaluation, the patient is more alert. She is following some simple commands although she is slow in answering questions or following commands at this point in time. No focal neurological deficit. No headaches. No neck stiffness. No focal neurological deficit. No clear evidence of any underlying seizure activity. EEG and MRI of the brain has already been ordered by neurology. Meanwhile, the patient is being treated with a combination of fluids and antibiotics. The patient received a total of 3 L of IV fluids and the patient is currently on a maintenance of 0.9 at 1:30 sees an hour the patient received 2 g of IV Rocephin. Cultures still pending for now. Her Espinoza catheter showed quite cloudy and abnormal urine output which is essentially clearing at this point in time. She also had a bout of atrial fibrillation with RVR yesterday and she was given a total of 150 mg of amiodarone and subsequently she converted to normal sinus rhythm. Note that she did the same during an earlier admission where she had A. fib. She converted to sinus rhythm. She was not placed on anticoagulation. Her echocardiogram was essentially within normal limits. The white cell count currently is at 7.8. Lactic acid level is down to 1.9 from 2.8. COVID-19 testing was negative. Rest of the electrolytes show an acute kidney injury with a creatinine of 3.16 and creatinine is improving down to 2.4. Sodium is at 139 with a bicarb level of 17 with a gap of 13. On 05/07/2021 patient seen in follow-up in intensive care unit, she is lethargic, she is slow to respond, she only provides yes or no responses occasionally, still very encephalopathic. She did receive 1 mg of Ativan yesterday for the MRI of the brain, she required 1 more dose of 1 mg Ativan in the 90s for possible episode of breakthrough seizure. CT of the brain on admission showed no acute intracranial abnormality, additional cerebral atrophy. MRI of the brain showed no evidence for recent infarct, he did show some nonspecific white matter changes possibly a product of chronic small vessel ischemic changes. EEG was completed yesterday showing the ground slowing suggestive of moderate to severe encephalopathy, there were no focal slowing or epileptiform discharges or seizure activity on the EEG. Patient was found to have E. coli in the blood culture, she currently remains on Rocephin 2 g every 24 hours. Zosyn has been discontinued, she is not requiring any vasopressors at the moment, she did require small dose of norepinephrine overnight. Hemodynamically stable, blood pressure is 112/66, slightly tachycardic in sinus mechanism with a rate of 106 BPM, low-grade fever this morning with a temp of 100.1F. Follow-up with culture showed gram-negative bacilli, fungal culture is pending. Urine culture is pending. Patient appears to be breathing comfortably, she is only requiring 2 L of oxygen a pulse ox of 95%, no cough, lung sounds are clear diminished at the bases, no rhonchi or wheezing on today's exam. Today's labs have been reviewed, white blood cell count is 8.5, hemoglobin 10.4, sodium is 144, potassium is 4.0, chloride is 118, CO2 is 15, renal profile is improving, and BUN is down to 43, creatinine is 1.37. Her last plasma lactic acid from yesterday was 1.9. Espinoza catheter is in place and she is producing urine outputs in the order of 30-60 ML per hour. Renal ultrasound showed no evidence of hydronephrosis at this point, no nephrolithiasis was seen, no masses were identified. Lumbar puncture was attempted at the bedside, however there was a grossly bloody fluid returned, which clotted, and there was a suspicion that the needle was in the blood vessel. The fluid has been discarded, and anesthesia has been consulted for a repeat LP. CT of the brain without contrast will be repeated this morning. Otherwise clinically patient seems to be improving with the exception of continued confusion. She does have multiple psychiatric problems, her baseline mentation is unknown. Neurology is following, case was discussed with them. ID service is following. Hemodynamically she appears to be more stable, overall fever pattern has improved since admission. Renal profile has improved. Her Depakote dose has been adjusted as her Depakote level was subtherapeutic at 24.2. She is currently receiving IV Depakote 750 mg twice daily per neurology recommendations. Objective - Vital Signs Vital signs: Vital Signs Temp 100.1 F H 05/07/21 08:00 Pulse 106 H 05/07/21 08:00 Resp 16 05/07/21 08:00 BP 112/66 05/07/21 08:00 Pulse Ox 95 05/07/21 08:00 Intake & Output 05/06/21 05/07/21 05/07/21 18:59 06:59 18:59 Intake Total 2710 1814.000 260 Output Total 1390 820 180 Balance 1320 994.000 80 Weight 115.9 kg Intake: IV 2710 1560 260 Sodium Chloride 0.9% 1, 1560 1560 260 000 ml @ 130 mls/hr IV . Q7H42M [facility] Rx#:[id number] Sodium Chloride 0.9% 1, 1000 000 ml @ 999 mls/hr IV . Q1H1M [facility] Rx#:[id number] Valproate Sodium 500 mg 100 In Sodium Chloride 0.9% 100 ml @ 100 mls/hr IVPB Q12H [facility] Rx#:[id number] cefTRIAXone 2 gm In 50 Sodium Chloride 0.9% 50 ml @ 100 mls/hr IVPB Q24HR [facility] Rx#:[id number] Intake, IV Titration 254.000 Amount Norepinephrine 4 mg In 254.000 Sodium Chloride 0.9% 250 ml @ 0.05 MCG/KG/MIN 19. 01 mls/hr IV .[id number] [facility] Rx#:[id number] Output: Urine 1390 820 180 Other: Voiding Method Indwelling Catheter Indwelling Catheter # Bowel Movements 1 - Exam GENERAL EXAM: Drowsy, confused, 56-year-old obese white female, on 2 L of oxygen and pulse ox of 95%, slow to respond, only provides yes or no responses occasionally, comfortable in no apparent distress. HEAD: Normocephalic/atraumatic. EYES: Normal reaction of pupils, equal size. Conjunctiva pink, sclera white. NOSE: Clear with pink turbinates. THROAT: No erythema or exudates. NECK: No masses, no JVD, no thyroid enlargement, no adenopathy. CHEST: No chest wall deformity. Symmetrical expansion. LUNGS: Equal air entry with no crackles, wheeze, rhonchi or dullness. CVS: Regular rate and rhythm, normal S1 and S2, no gallops, no murmurs, no rubs ABDOMEN: Soft, nontender. No hepatosplenomegaly, normal bowel sounds, no guarding or rigidity. EXTREMITIES: No clubbing, edema, no cyanosis, 2+ pulses and upper and lower extremities. MUSCULOSKELETAL: Muscle strength and tone normal. SPINE: No scoliosis or deformity SKIN: No rashes CENTRAL NERVOUS SYSTEM: Drowsy, awakens to verbal stimulation, oriented to 0. No focal deficits, tone is normal in all 4 extremities. - Labs CBC & Chem 7: 05/07/21 05:05 05/07/21 05:05 Labs: Abnormal Lab Results - Last 24 Hours (Table) 05/06/21 05/06/21 05/07/21 Range/Units 11:28 18:13 01:46 RBC (3.80-5.40) m/uL Hgb (11.4-16.0) gm/dL Hct (34.0-46.0) % MCV (80.0-100.0) fL Plt Count (150-450) k/uL Lymphocytes # (1.0-4.8) k/uL Chloride (98-107) mmol/L Carbon Dioxide (22-30) mmol/L BUN (7-17) mg/dL Creatinine (0.52-1.04) mg/dL Glucose (74-99) mg/dL POC Glucose (mg/dL) 143 H 114 H 119 H (75-99) mg/dL Total Protein (6.3-8.2) g/dL Albumin (3.5-5.0) g/dL 05/07/21 05/07/21 Range/Units 05:05 05:05 RBC 3.09 L (3.80-5.40) m/uL Hgb 10.4 L (11.4-16.0) gm/dL Hct 32.4 L (34.0-46.0) % MCV 105.1 H (80.0-100.0) fL Plt Count 111 L (150-450) k/uL Lymphocytes # 0.5 L (1.0-4.8) k/uL Chloride 118 H (98-107) mmol/L Carbon Dioxide 15 L (22-30) mmol/L BUN 43 H (7-17) mg/dL Creatinine 1.37 H (0.52-1.04) mg/dL Glucose 113 H (74-99) mg/dL POC Glucose (mg/dL) (75-99) mg/dL Total Protein 6.2 L (6.3-8.2) g/dL Albumin 2.9 L (3.5-5.0) g/dL Microbiology - Last 24 Hours (Table) 05/05/21 19:45 Blood Culture Gram Stain - Preliminary Blood 05/05/21 19:30 Blood Culture Gram Stain - Preliminary Blood Blood Culture - Preliminary Escherichia coli 05/05/21 19:45 Blood Culture - Final Blood 05/05/21 19:30 Blood Culture - Final Blood Assessment and Plan Plan: #1. Altered mental status, likely secondary to sepsis induced metabolic encephalopathy. No seizure activity. No focal neurological deficit. Neuro workup is in progress #2. UTI with sepsis most likely secondary to gram-negative bacteria. Suspect recurrent E. coli urinary tract infection septicemia. Currently on IV Rocephin 2 g in addition to IV fluids. He received a total of 3 L of IV fluid. Hemodynamically stable on no pressors #3. E. coli bacteremia related to urinary tract infection, final urine culture is still pending at this time #4. Septic shock #5. Myoclonic jerks, rule out seizures. EEG showed moderate to severe encephalopathy, but no evidence of epileptiform discharges or seizure #6. Acute kidney injury, related to ATN, improving #7. Paroxysmal atrial fibrillation current rhythm is sinus. The patient was given a bolus of amiodarone 150 mg 1 with good results #8. History of fall with left fib/tib Fracture, seen by orthopedic surgery during an earlier admission and the patient is currently being managed conservatively through a boot #9. Obesity with a BMI of 37.8 #10. History of smoking #11. History of schizoaffective disorder Plan: CT of the brain without contrast is pending LP was attempted at the bedside with return of grossly bloody fluid We'll ask anesthesia to do LP at the bedside CSF for cultures, glucose, cell count, protein Hemodynamically and clinically patient appears to be better, she is off vasopressor support Renal profile is improving, febrile pattern is improving Continue current antibiotics We will wait for finalize blood cultures Maintain aspiration precautions Continue close monitoring in the intensive care unit Case was discussed with neurology and medicine I performed a history & physical examination of the patient and discussed their management with my nurse practitioner, Tiara Main. I reviewed the nurse practitioner's note and agree with the documented findings and plan of care. Lung sounds are positive for clear breath sounds. throughout the lung wright. The findings and the impression was discussed with the patient. I attest to the documentation by the nurse practitioner. Time with Patient: Greater than 30
--- NOTE | 2021-05-07 10:06 | CT ---
EXAMINATION TYPE: CT brain wo con DATE OF EXAM: 05/07/2021 COMPARISON: 05/05/2021 HISTORY: altered mental status CT DLP: 1099.[address] of the brain was performed. The ventricles, basal cisterns and sulci overlying the cerebral convexities demonstrate moderate enla rgement. There is no evidence for intracranial hemorrhage or sulcal effacement. There is decreased attenuation about the periventricular white matter and deep white matter of both c erebral hemispheres, compatible with chronic small vessel ischemia. Differential diagnosis does inclu de demyelination. No mass effects are seen.No midline shift. Osseous calvarium is intact. If symptoms persist consider MRI. IMPRESSION: 1. Age related atrophic and chronic small vessel ischemic change without acute intracranial process s een at this time.
--- NOTE | 2021-05-07 10:16 | CT ---
EXAMINATION TYPE: CT lumbar spine wo con DATE OF EXAM: 05/07/2021 10:00 AM COMPARISON: None. HISTORY: low back pain. CT DLP: 2045.4 mGycm Automated exposure control for dose reduction was used. Unenhanced CT of the lumbar spine was performed. Bone and soft tissue window settings are submitted as well as coronal and sagittal reconstructions. There are 5 lumbar-type vertebra. Exam is suboptimal due to large body habitus and patient motion. Mi ld to moderate spurring and disc space narrowing L2-L3 and L4-L5 levels. Additional [id number] multilevel anterior lateral spurring. Alignment is satisfactory. No acute fracture or dislocation is seen. Axial images are suboptimal. There is moderate broad disc bulge and [id number] facet arthropath y at L3-L4 level on axial image 58 with some effacement of the anterior thecal sac. There is moderate to advanced facet arthropathy and ligamentum flavum hypertrophy with moderate broad disc bulge at L4 -L5 level on axial image 67. There is likely moderate bilateral neural foraminal narrowing at these l evels. There is moderate facet arthropathy at L5-S1 level. Cholecystectomy clips are seen. Liver size overall prominence to mildly enlarged. Mild to moderate ca lcified plaque of the aorta extends into branch vessels IMPRESSION: As above. Suboptimal study but no acute findings are evident.
[2021-05-07] MEDS: VALPROATE SODIUM 750 MG in SODIUM CHLORIDE 0.9% 50 ML IVPB SCH ×2 (10:22→21:14)
--- NOTE | 2021-05-07 10:52 | P.PCN ---
Date of Procedure: 05/07/21 Procedure(s) Performed: Preoperative diagnosis: Altered mental status Post operative diagnoses: Altered mental status Procedure= lumbar puncture Anesthesia local infiltration with lidocaine 1% 3 mL. Condition: stable Complication: none. Description of the procedure procedure risk and benefits discussed with the patient and family, consent signed. Patient and the procedure area placed in lateral position ( left side down ), back prepped with chlorhexidine 3 times been local infiltration of the skin and subcutaneous tissue with lidocaine 1% 3 mL for skin and subcu interstitial frustrations at L4 5 levels then 20-gauge Quincke-type needle advanced slowly at L4- 5 interlaminar space there was positive cerebrospinal fluid which was clear, no heme, no paresthesia ,total of 9 ML of clear cerebrospinal fluid collected in 4 different tubes 2-2-1/2 mL in each, then the needle removed and a Band-Aid applied and patient tolerated the procedure well without any complications.
[2021-05-07 11:55] LABS: Glucose,Whole Blood 93 mg/dL (75-99)
[2021-05-07 12:04] LABS: Glucose,CSF 72 mg/dL (40-70); Total Protein,CSF 48 mg/dL (12-60)
[2021-05-07 14:45] LABS: Appearance,CSF Clear; CSF Tube Number 4; CSF Tube Volume 2.8; Nucleated Cells, CSF 0 u/L (0-5); Red Blood Cell,CSF 0 u/L (0-10)
--- NOTE | 2021-05-07 18:07 | PN ---
PROGRESS NOTE DATE OF SERVICE: 05/07/2021 REASON FOR FOLLOWUP: E coli UTI and bacteremia. INTERVAL HISTORY: The patient did have a low-grade fever of 100.1 this morning. The patient still has some lethargy and weakness and is unable to provide any history. Borderline blood pressure. No vomiting, diarrhea or other changes reported by the nursing staff. PHYSICAL EXAMINATION: On examination, blood pressure is 100/70 with a pulse of 70, temperature is 98.9. He is 95% on 2.5 L nasal cannula. GENERAL DESCRIPTION: General description is a middle-aged male lying in bed in no distress. RESPIRATORY SYSTEM: Unlabored breathing. Clear to auscultation anteriorly. HEART: S1, S2. Regular rate and rhythm. ABDOMEN: Soft. No tenderness. LABS: Hemoglobin is 10.4, white count 8.5, BUN of 43, creatinine 1.37. negative. Blood and urine with Gram-negative. DIAGNOSTIC IMPRESSION AND PLAN: Patient with Escherichia coli urinary tract infection and bacteremia. Source is likely pyelonephritis, for which the patient is currently covered with Rocephin; to continue while monitoring clinical course closely. Continue supportive care. MMODL / IJN: [id number] /
--- NOTE | 2021-05-07 19:07 | P.PN ---
Progress Note - Text Progress Note Date: 05/07/21 Chief Complaint: Altered mentation History of presenting complaint: This is a 56-year-old patient, presented to ER yesterday evening with altered mental status. Came in with the EMS with fever and tachycardia. Symptoms had been going for about 24 hours. Patient was not verbalizing anything in the ER. Per the EMS report: Family stated that patient had become confused for 2 days. Has stopped talking yesterday. Had not eaten or drank anything for last refill Ross. He also noticed that patient was breathing heavy was hypoxic and tachycardic. Upon getting admitted to the floor overnight patient been having fevers. Ice packs were ordered. Patient is tachycardic. Lethargic. Patient already received 1 dose of ceftriaxone in the ER. An early in the night is started on IV Zosyn. A team was called and patient smoked in ICU. Patient remains less responsive. Only to tactile stimuli she will move a bit.. Not answering questions. Eyes close. Consultations were placed to international relations teacher, neurology, ID. Patient does live with his son and girlfriend who takes care of the patient. Admitted with UTI from cystitis with sepsis, bilateral pneumonia, septic shock, acute kidney injury with ATN.IV fluids. IV ceftriaxone. Admitted to the ICU. May 07: Bit awake. Answering occasional questions. Following simple commands. MRI and EEG of the brain was negative. Earlier today lumbar puncture was attempted. Urine culture and blood culture showing gram-negative bacilli/E. coli Review of systems: Could not be obtained because patient is lethargic Active Medications Albuterol/Ipratropium (Ipratropium-Albuterol 3 Ml Neb) 3 ml INHALATION RT-QID [facility] Last Admin: 05/07/21 15:52 Dose: 3 ml Documented by: Budesonide (Budesonide 1 Mg/2 Ml Nebu) 1 mg INHALATION RT-BID [facility] Last Admin: 05/07/21 07:26 Dose: 1 mg Documented by: Sodium Chloride (Saline 0.9%) 1,000 mls @ 130 mls/hr IV .Q7H42M [facility] Last Admin: 05/07/21 16:00 Dose: 130 mls/hr Documented by: Ceftriaxone Sodium 2 gm/ (Sodium Chloride) 50 mls @ 100 mls/hr IVPB Q24HR [facility] Last Admin: 05/07/21 08:05 Dose: 100 mls/hr Documented by: Norepinephrine Bitartrate 4 mg (/ Sodium Chloride) 254 mls @ 19.01 mls/hr IV .[id number] [facility]; Protocol Last Admin: 05/07/21 15:59 Dose: 0.02 mcg/kg/min, 7.604 mls/hr Documented by: Valproic Acid 750 mg/ Sodium (Chloride) 57.5 mls @ 50 mls/hr IVPB Q12HR [facility] Last Admin: 05/07/21 10:22 Dose: 50 mls/hr Documented by: Levothyroxine Sodium (Levothyroxine 50 Mcg Tab) 50 mcg PO DAILY@0630 [facility] Last Admin: 05/07/21 06:42 Dose: Not Given Documented by: Naloxone HCl (Naloxone 0.4 Mg/Ml 1 Ml Vial) 0.2 mg IV Q2M PRN PRN Reason: Opioid Reversal Nicotine (Nicotine 21mg/24hr Patch) 1 patch TRANSDERM DAILY [facility] Last Admin: 05/07/21 08:06 Dose: 1 patch Documented by: Pantoprazole Sodium (Pantoprazole 40 Mg/10 Ml Vial) 40 mg IVP DAILY [facility] Last Admin: 05/07/21 08:06 Dose: 40 mg Documented by: Past medical history to include: Atrial fibrillation, bibasilar fibrotic lung changes with honeycombing, schizo affective disorder, nicotine use, in February of this year patient did have a left tibial plate to and left proximal fibular fracture Social history: Patient lives with her son and girlfriend, or take care of her. Smoker. Marijuana use history of Family history: Could not be obtained. Physical examination: VITAL SIGNS: T-max 100.1, 73, 17, 99/69, 99% GENERAL: Laying in bed, but more awake. Answering occasional question EYES: Pupils equal. Conjunctiva normal. HEENT: External appearance of nose and ears normal, oral cavity mucous membranes. NECK: JVD unable to assess; masses not palpable. HEART: First and second heart sounds are normal; no edema. LUNGS: Respiratory rate increased; decreased breath sounds. ABDOMEN: Soft, nontender, liver spleen not palpable, no masses palpable. PSYCH: Depressed appearing. Answering occasional question. NEUROLOGICAL: Cranial nerves grossly intact; no facial asymmetry, following occasional command INVESTIGATIONS, reviewed in the clinical context: May 07: WBC 8.5 hemoglobin 10.4 platelets 111, bicarb 15 BUN 43 creatinine 1.37 CSF: Nucleated cells 0 [address] brain [May 07]: Negative MRI brain: Nothing acute EEG: Not showing any epileptiform activity. Encephalopathy WBC 7.8 hemoglobin 12.1 platelets 105 potassium 5 bicarb 17 BUN 46 creatinine 2.4 to Admission labs: Potassium 4.4 BUN 45 creatinine 3.16 bilirubin 1.5 AST 40 ALT 25 albumin 3.1 UA positive for leukoesterase, WBC Coronavirus [BCR] not detected EKG tracing personally reviewed by me: Normal sinus rhythm. Heart rate 128 Chest x-ray film personally reviewed by me-bibasal infiltrates CT brain: Cerebral atrophy. Previous testing: CT chest and U for PE [02/24/2021] chronic parenchymal fibrotic changes greatest in the bases. With honeycombing. It is of groundglass opacities. 2-D echocardiogram: EF 55 have a 60%. [id number] tricuspid regurgitation. Some element of pulmonary hypertension Assessment and plan: -Patient presented with fevers altered mentation/metabolic/toxic encephalopathy. Patient has no focal findings.: Slow to respond Patient have underlying possibly catatonic state -Acute UTI from cystitis with sepsis. Patient recently has had UTI and Espinoza catheter was removed. E. coli and blood and urine culture IV ceftriaxone -Possible bilateral pneumonia, suspect gram-negative organism IV ceftriaxone -Septic shock IV fluids -Acute kidney injury, likely from ATN from sepsis: Improving Admission creatinine 3.16 Follow renal functions. IV fluids. Today creatinine 1.37 -Metabolic and lactic acidosis from renal failure/sepsis Add bicarbonate drip -Paroxysmal atrial fibrillation, currently in sinus rhythm Telemetry -Chronic pulmonary fibrosis especially at the bases with honeycombing -Schizoaffective disorder On antipsychotics -Acute COPD exacerbation, and a smoker DuoNeb. Inhaled steroids -Chronic nicotine dependence, cigarette smoker Nicotine patch Patient's inVega will be resumed. Add bicarbonate drip. Change IV fluids. Continue IV ceftriaxone. CSF appears to be benign. Consult psychiatry. Regarding antipsychotics.
[2021-05-07] MEDS: DEXTROSE 5% IN WATER 1,000 ML with SODIUM BICARB (1 MEQ/ML) 50 ML IV SCH (21:12)
[2021-05-07] MEDS: PALIPERIDONE 6 MG TAB.ER.24 PO SCH (21:44)
[2021-05-08 00:14] LABS: Glucose,Whole Blood 128 mg/dL (75-99)
[2021-05-08 05:27] LABS: Basophils % (A) 0 %; Eosinophils % (A) 1 %; HCT 30.2 % (34.0-46.0); HGB 9.9 gm/dL (11.4-16.0); Hypochromasia Slight; Lymphocytes # (A) 0.6 k/uL (1.0-4.8); Lymphocytes % (A) 9 %; MCH 34.3 pg (25.0-35.0); MCHC 32.7 g/dL (31.0-37.0); MCV 104.7 fL (80.0-100.0); Macrocytosis Moderate; Mean Platelet Volume 7.8; Monocytes # (A) 0.4 k/uL (0-1.0); Monocytes % (A) 6 %; Neutrophils # (A) 5.1 k/uL (1.3-7.7); Neutrophils % (A) 82 %; Poikilocytosis Slight; RBC 2.88 m/uL (3.80-5.40); RDW 15.4 % (11.5-15.5); WBC 6.2 k/uL (3.8-10.6)
[2021-05-08 06:00] LABS: Anisocytosis (M) Present; Platelet Count 91 k/uL (150-450); Polychromasia Present
[2021-05-08 06:03] LABS: Albumin 2.8 g/dL (3.5-5.0); Calcium 8.8 mg/dL (8.4-10.2); Potassium 3.4 mmol/L (3.5-5.1); Total Bilirubin 0.3 mg/dL (0.2-1.3); Total Protein 6.1 g/dL (6.3-8.2)
[2021-05-08 06:06] LABS: Glucose,Whole Blood 106 mg/dL (75-99)
[2021-05-08] MEDS ORDERED: Potassium Replacement Protocol 1 EACH MISC MISCELLANE PRN (06:18)
[2021-05-08] MEDS: LEVOTHYROXINE 50 MCG TAB PO SCH (06:46)
[2021-05-08] MEDS: POTASSIUM BICARBONATE/CIT AC 20 MEQ TABLET.EFF NG-TUBE SCH (06:46)
[2021-05-08] MEDS: DEXTROSE 5% IN WATER 1,000 ML with SODIUM BICARB (1 MEQ/ML) 50 ML IV SCH ×3 (07:01→21:19)
[2021-05-08] MEDS: IPRATROPIUM-ALBUTEROL 3 ML NEB INHALATION SCH ×4 (08:10→20:25)
[2021-05-08] MEDS: BUDESONIDE 1 MG/2 ML NEBU INHALATION SCH ×2 (08:11→20:25)
--- NOTE | 2021-05-08 08:17 | XR ---
EXAMINATION TYPE: XR chest 1V DATE OF EXAM: 05/08/2021 COMPARISON: 05/05/2021 HISTORY: Fever FINDINGS: There are bilateral pleural effusions with bibasilar infiltrate. There is a diffuse interstitial pat tern. Lung apices limited by positioning. Arthropathy of the shoulders and diffuse osteopenia. Athero sclerotic change aorta. Hypertrophic and degenerative change spine. IMPRESSION: 1. Correlate for interstitial pneumonia with basilar infiltrates for CHF. Findings stable.
[2021-05-08] MEDS ORDERED: ENOXAPARIN 40 MG/0.4 ML SYRINGE SQ SCH (09:30)
[2021-05-08] MEDS: PANTOPRAZOLE 40 MG/10 ML VIAL IVP SCH (11:02)
[2021-05-08] MEDS: PALIPERIDONE 3 MG TAB.ER.24 PO SCH (11:03)
[2021-05-08] MEDS: NICOTINE 21MG/24HR PATCH TRANSDERM SCH (11:03)
[2021-05-08 11:14] VITALS: BMI 43.8
[2021-05-08] MEDS: NOREPINEPHRINE 4 MG in SODIUM CHLORIDE 0.9% 250 ML IV SCH (11:23)
[2021-05-08] MEDS: VALPROATE SODIUM 750 MG in SODIUM CHLORIDE 0.9% 50 ML IVPB SCH (11:23)
--- NOTE | 2021-05-08 11:36 | P.PN ---
Subjective Progress Note Date: 05/08/21 The patient is seen at bedside and per the ICU nurse she is doing better today. She continues to be slow in responding. Objective - Vital Signs Vital signs: Vital Signs Temp 98.7 F 05/08/21 04:00 Pulse 93 05/08/21 11:19 Resp 18 05/08/21 07:00 BP 107/58 05/08/21 07:00 Pulse Ox 96 05/08/21 07:00 Intake & Output 05/07/21 05/08/21 05/08/21 18:59 06:59 18:59 Intake Total 1610 1401.375 100 Output Total 670 1020 115 Balance 940 381.375 -15 Weight 115.9 kg Intake: IV 1610 1310 100 Dextrose 5% in Water 1, 1000 100 000 ml @ 100 mls/hr IV . [id number] NIESHA with Sodium Bicarb (1 Meq/ml) 50 ml Rx#:[id number] Sodium Chloride 0.9% 1, 1560 260 000 ml @ 130 mls/hr IV . [id number] NIESHA Rx#:[id number] Valproate Sodium 750 mg 50 50 In Sodium Chloride 0.9% 50 ml @ 50 mls/hr IVPB Q12HR NIESHA Rx#:[id number] Intake, IV Titration 91.375 Amount Norepinephrine 4 mg In 91.375 Sodium Chloride 0.9% 250 ml @ 0.05 MCG/KG/MIN 19. 01 mls/hr IV .[id number] NIESHA Rx#:[id number] Output: Urine 670 1020 115 Other: Voiding Method Indwelling Catheter Indwelling Catheter - Exam GENERAL: The patient is morbid obese woman, lying in bed and does not seem in acute distress. NEUROLOGICAL: Higher mental function: The patient is drowsy but awakeable to voice. She stated her name. She did not respond to year or place. She was able to name objects correctly (pen and watch). She was able to follow simple commands (thumbs up and closing eyes). It is hard to assess language. No neglect. Cranial nerves: The pupils are round, equal and reactive to light. Visual wright and extraocular movement are hard to assess. No facial weakness. Hard to assess the rest of cranial nerves. Motor: The strength is able to lift bilateral upper above gravity without focality.. Increase tone in uppers. Has tremors of uppers and not lower (myoclonic jerks improved). Cerebellum: Could not assess. Sensation: Could not assess. Reflexes (right/left): 2+ throughout. Plantars are mute bilaterally. WORK-UP: MRI of brain is reported as no MRI evidence for recent infarct. Moderate diffuse cerebral atrophy greatest over bilateral frontal lobe somewhat prominent for patient chronologic age with the mild to moderate nonspecific white matter changes favored the product of chronic small vessel ischemic change. Repeat CT of the head on 05/07/21 is reported as age-related atrophic and chronic small vessel ischemic change without acute intracranial process seen at this time. CT of lumbar 05/07/21 was reported as suboptimal study but no acute finding are evident. In the body they reported it is reported that the patient has moderate broad disc bulge and mild to moderate facet arthropathy at L3-L4. There is a moderate to advanced facet arthropathy and ligamentum flavum hypertrophy with moderate broad disc bulge at L4-L5 and there is moderate facet arthropathy at L5-S1. CSF study on 05/07/21: clear, colorless, 0 red blood cell, 0 nucleated cells, total protein is 48 (NORMAL), glucose 72 (borderline low high level. Normal is 40-70). CSF is negative for meningoencephalitis. EEG on 05/06/2021 is abnormal routine EEG. The back was slowing suggestive of moderate to severe encephalopathy. There are no focal slowing, epileptiform discharges or seizure on the EEG. Clinical correlation is recommended The blood cultures is positive for E.coli. Urine cultures: Gram neg bacilli. Depakote level: 24.2 (subtherapeutic. Normal levels are between 50-120). Vitamin B12: 401 (normal). Folate: 8.0 (normal). TSH: 1.770 (normal). Repeat Valproic acid on 05/08/21: 59 (is low normal). - Labs CBC & Chem 7: 05/08/21 04:46 05/08/21 04:46 Labs: Abnormal Lab Results - Last 24 Hours (Table) 05/07/21 05/07/21 05/08/21 Range/Units 05:05 11:00 00:13 RBC (3.80-5.40) m/uL Hgb (11.4-16.0) gm/dL Hct (34.0-46.0) % MCV (80.0-100.0) fL Plt Count (150-450) k/uL Lymphocytes # (1.0-4.8) k/uL Potassium (3.5-5.1) mmol/L Chloride (98-107) mmol/L Carbon Dioxide (22-30) mmol/L BUN (7-17) mg/dL Creatinine (0.52-1.04) mg/dL Glucose (74-99) mg/dL POC Glucose (mg/dL) 128 H (75-99) mg/dL Total Protein (6.3-8.2) g/dL Albumin (3.5-5.0) g/dL Procalcitonin 6.68 H (0.02-0.09) ng/mL CSF Glucose 72 H (40-70) mg/dL 05/08/21 05/08/21 05/08/21 Range/Units 04:46 04:46 06:05 RBC 2.88 L (3.80-5.40) m/uL Hgb 9.9 L (11.4-16.0) gm/dL Hct 30.2 L (34.0-46.0) % MCV 104.7 H (80.0-100.0) fL Plt Count 91 L (150-450) k/uL Lymphocytes # 0.6 L (1.0-4.8) k/uL Potassium 3.4 L (3.5-5.1) mmol/L Chloride 116 H (98-107) mmol/L Carbon Dioxide 18 L (22-30) mmol/L BUN 34 H (7-17) mg/dL Creatinine 1.20 H (0.52-1.04) mg/dL Glucose 107 H (74-99) mg/dL POC Glucose (mg/dL) 106 H (75-99) mg/dL Total Protein 6.1 L (6.3-8.2) g/dL Albumin 2.8 L (3.5-5.0) g/dL Procalcitonin (0.02-0.09) ng/mL CSF Glucose (40-70) mg/dL Microbiology - Last 24 Hours (Table) 05/05/21 19:45 Blood Culture Gram Stain - Final Blood Blood Culture - Final Escherichia coli 05/05/21 19:30 Blood Culture Gram Stain - Final Blood Blood Culture - Final Escherichia coli 05/07/21 11:00 CSF Gram Stain - Preliminary Cerebral Spinal Fluid CSF Culture - Preliminary 05/07/21 05:05 Blood Culture - Preliminary Blood No Growth after 24 hours 05/05/21 19:47 Urine Culture - Preliminary Urine,Voided Gram Neg Bacilli Assessment and Plan Assessment: Altered mental status due to likely septic encephalopathy from acute urinary tract infection as well as component metabolic encephalopathy (acute kidney insuffiency)--improving compared to yesterday. Myoclonic jerks likely due to above--improving. Acute kidney insufficiency--trending down Acute on chronic urinary tract infection History of fall with left tibial/fibial fracture in 02/2021 History of Schizoaffective disorder Plan: * Continue Depakote 750mg 1 tab bid (was at home dose of 500mg 1 tab bid for mood stablizer and I increased it which help mood and has antiepileptic effect). * Ordered repeat EEG since patient continues to have tremor of uppers to rule o ut seizures. * Patient is on ceftriaxone for her urinary tract infection will defer the management to the ICU as well as the primary team. * Infection disease team is on board. * We'll defer the rest of the medical management to the primary as well as ICU team. Plan was discussed with the patient ICU nurse. John Laws MD Neuro-Hospitalist Time with Patient: Less than 30
[2021-05-08 11:57] LABS: Glucose,Whole Blood 117 mg/dL (75-99)
[2021-05-08] MEDS ORDERED: DILTIAZEM DRIP BOLUS FROM BAG 1 MG SOLN IV ONE (13:16)
[2021-05-08] MEDS: DILTIAZEM 125 MG in SODIUM CHLORIDE 0.9% 100 ML IV SCH (13:29)
--- NOTE | 2021-05-08 14:22 | P.PN ---
Progress Note - Text Progress Note Date: 05/08/21 Chief Complaint: Altered mentation History of presenting complaint: This is a 56-year-old patient, presented to ER yesterday evening with altered mental status. Came in with the EMS with fever and tachycardia. Symptoms had been going for about 24 hours. Patient was not verbalizing anything in the ER. Per the EMS report: Family stated that patient had become confused for 2 days. Has stopped talking yesterday. Had not eaten or drank anything for last refill Ross. He also noticed that patient was breathing heavy was hypoxic and tachycardic. Upon getting admitted to the floor overnight patient been having fevers. Ice packs were ordered. Patient is tachycardic. Lethargic. Patient already received 1 dose of ceftriaxone in the ER. An early in the night is started on IV Zosyn. A team was called and patient smoked in ICU. Patient remains less responsive. Only to tactile stimuli she will move a bit.. Not answering questions. Eyes close. Consultations were placed to automatic tire tester, neurology, ID. Patient does live with his son and girlfriend who takes care of the patient. Admitted with UTI from cystitis with sepsis, bilateral pneumonia, septic shock, acute kidney injury with ATN.IV fluids. IV ceftriaxone. Admitted to the ICU. May 07: Bit awake. Answering occasional questions. Following simple commands. MRI and EEG of the brain was negative. Earlier today lumbar puncture was attempted. Urine culture and blood culture showing gram-negative bacilli/E. coli May 08: ICU: She had more awake. Will answer occasionally. Eating little. Went into A. fib this afternoon. Cardiology consulted. Getting a repeat EEG. Remains afebrile. Psychiatry being consulted Review of systems: Could not be obtained because patient is lethargic Active Medications Albuterol/Ipratropium (Ipratropium-Albuterol 3 Ml Neb) 3 ml INHALATION RT-QID [facility] Last Admin: 05/08/21 11:11 Dose: 3 ml Documented by: Budesonide (Budesonide 1 Mg/2 Ml Nebu) 1 mg INHALATION RT-BID [facility] Last Admin: 05/08/21 08:11 Dose: 1 mg Documented by: Enoxaparin Sodium (Enoxaparin 40 Mg/0.4 Ml Syringe) 40 mg SQ DAILY [facility] Last Admin: 05/08/21 11:03 Dose: 40 mg Documented by: Ceftriaxone Sodium 2 gm/ (Sodium Chloride) 50 mls @ 100 mls/hr IVPB Q24HR [facility] Last Admin: 05/08/21 11:02 Dose: 100 mls/hr Documented by: Norepinephrine Bitartrate 4 mg (/ Sodium Chloride) 254 mls @ 19.01 mls/hr IV .[id number] [facility]; Protocol Last Admin: 05/08/21 11:23 Dose: Not Given Documented by: Valproic Acid 750 mg/ Sodium (Chloride) 57.5 mls @ 50 mls/hr IVPB Q12HR [facility] Last Admin: 05/08/21 11:23 Dose: 50 mls/hr Documented by: Sodium Bicarbonate 50 ml/ (Dextrose/Water) 1,050 mls @ 100 mls/hr IV .[id number] [facility] Last Admin: 05/08/21 07:01 Dose: 100 mls/hr Documented by: Diltiazem HCl 125 mg/ Sodium (Chloride) 125 mls @ 5 mls/hr IV .Q24H [facility] Last Admin: 05/08/21 13:29 Dose: 5 mg/hr, 5 mls/hr Documented by: Levothyroxine Sodium (Levothyroxine 50 Mcg Tab) 50 mcg PO DAILY@0630 [facility] Last Admin: 05/08/21 06:46 Dose: 50 mcg Documented by: Miscellaneous Information (Potassium Replacement Protocol 1 Each Misc) 1 each MISCELLANE DAILY PRN; Protocol PRN Reason: Per Protocol Naloxone HCl (Naloxone 0.4 Mg/Ml 1 Ml Vial) 0.2 mg IV Q2M PRN PRN Reason: Opioid Reversal Nicotine (Nicotine 21mg/24hr Patch) 1 patch TRANSDERM DAILY [facility] Last Admin: 05/08/21 11:03 Dose: 1 patch Documented by: Paliperidone (Paliperidone 3 Mg Tab.Er.24) 3 mg PO DAILY [facility] Last Admin: 05/08/21 11:03 Dose: 3 mg Documented by: Paliperidone (Paliperidone 6 Mg Tab.Er.24) 6 mg PO HS [facility] Last Admin: 05/07/21 21:44 Dose: 6 mg Documented by: Pantoprazole Sodium (Pantoprazole 40 Mg/10 Ml Vial) 40 mg IVP DAILY [facility] Last Admin: 05/08/21 11:02 Dose: 40 mg Documented by: Past medical history to include: Atrial fibrillation, bibasilar fibrotic lung changes with honeycombing, schizoaffective disorder, nicotine use, in February of this year patient did have a left tibial plate to and left proximal fibular fracture Social history: Patient lives with her son and girlfriend, or take care of her. Smoker. Marijuana use history of Family history: Could not be obtained. Physical examination: VITAL SIGNS: 99.8, 99, 23, 95/57, 94% on 2 L GENERAL: Laying in bed, tired. More arousable.. EYES: Pupils equal. Conjunctiva normal. HEENT: External appearance of nose and ears normal, oral cavity mucous membranes. NECK: JVD unable to assess; masses not palpable. HEART: First and second heart sounds are normal; no edema. LUNGS: Respiratory rate increased; decreased breath sounds. ABDOMEN: Soft, nontender, liver spleen not palpable, no masses palpable. PSYCH: Depressed appearing. Answering occasional question. NEUROLOGICAL: Cranial nerves grossly intact; no facial asymmetry, following occasional command INVESTIGATIONS, reviewed in the clinical context: May 08: WBC 6.2 hemoglobin 9.9 platelets 91 potassium 3.4 bicarb 18 BUN 34 creatinine 1.20 May 07: WBC 8.5 hemoglobin 10.4 platelets 111, bicarb 15 BUN 43 creatinine 1.37 CSF: Nucleated cells 0 glucose [address] brain [May 07]: Negative MRI brain: Nothing acute EEG: Not showing any epileptiform activity. Encephalopathy WBC 7.8 hemoglobin 12.1 platelets 105 potassium 5 bicarb 17 BUN 46 creatinine 2.4 to Admission labs: Potassium 4.4 BUN 45 creatinine 3.16 bilirubin 1.5 AST 40 ALT 25 albumin 3.1 UA positive for leukoesterase, WBC Coronavirus [BCR] not detected EKG tracing personally reviewed by me: Normal sinus rhythm. Heart rate 128 Chest x-ray film personally reviewed by me-bibasal infiltrates CT brain: Cerebral atrophy. Previous testing: CT chest and U for PE [02/24/2021] chronic parenchymal fibrotic changes greatest in the bases. With honeycombing. It is of groundglass opacities. 2-D echocardiogram: EF 55 have a 60%. [id number] tricuspid regurgitation. Some element of pulmonary hypertension Assessment and plan: -Patient presented with fevers altered mentation/metabolic/toxic encephalopathy. Patient has no focal findings.: Slow to respond Consider underlying possibly catatonic state -Acute UTI from cystitis with sepsis. Patient recently has had UTI and Espinoza catheter was removed. E. coli in both urine and blood culture IV ceftriaxone -Possible bilateral pneumonia, suspect gram-negative organism IV ceftriaxone -Septic shock IV fluids -Acute kidney injury, likely from ATN from sepsis: Improving Admission creatinine 3.16 Follow renal functions. IV fluids. Today creatinine 1.20 -Metabolic and lactic acidosis from renal failure/sepsis bicarbonate drip continue -Paroxysmal atrial fibrillation, currently in sinus rhythm Telemetry -Chronic pulmonary fibrosis especially at the bases with honeycombing -Schizoaffective disorder On antipsychotics -Acute COPD exacerbation, and a smoker DuoNeb. Inhaled steroids -Chronic nicotine dependence, cigarette smoker Nicotine patch Continue IV ceftriaxone. Started on Cardizem drip. Consult psychiatry. Other medications to continue. Bicarbonate drip.
--- NOTE | 2021-05-08 14:28 | P.PN ---
Subjective Progress Note Date: 05/08/21 Principal diagnosis: Altered mental status, sepsis, gram-negative bacteremia This is a 56-year-old here patient was hospitalized yesterday because of altered mental status, the patient was nonverbal and she was jerking and she was having Reiger's and high-grade fever and tachycardia. She was diagnosed having a UTI and this was a recurrent event. She initially she was admitted to the medical floor and following that the patient was transferred to the intensive care unit as the patient's mental status was quite low and the patient was having high- grade fever and questionable seizure activity. For that reason, the patient got transferred to the intensive care unit. The working diagnosis for now remains and recurrent urine checked infection. Mother the patient was in the hospital approximately a few months back and the patient had an E. coli UTI and sepsis. Suspect the same for now. On today's evaluation, the patient is more alert. She is following some simple commands although she is slow in answering questions or following commands at this point in time. No focal neurological deficit. No headaches. No neck stiffness. No focal neurological deficit. No clear evidence of any underlying seizure activity. EEG and MRI of the brain has already been ordered by neurology. Meanwhile, the patient is being treated with a combination of fluids and antibiotics. The patient received a total of 3 L of IV fluids and the patient is currently on a maintenance of 0.9 at 1:30 sees an hour the patient received 2 g of IV Rocephin. Cultures still pending for now. Her Espinoza catheter showed quite cloudy and abnormal urine output which is essentially clearing at this point in time. She also had a bout of atrial fibrillation with RVR yesterday and she was given a total of 150 mg of amiodarone and subsequently she converted to normal sinus rhythm. Note that she did the same during an earlier admission where she had A. fib. She converted to sinus rhythm. She was not placed on anticoagulation. Her echocardiogram was essentially within normal limits. The white cell count currently is at 7.8. Lactic acid level is down to 1.9 from 2.8. COVID-19 testing was negative. Rest of the electrolytes show an acute kidney injury with a creatinine of 3.16 and creatinine is improving down to 2.4. Sodium is at 139 with a bicarb level of 17 with a gap of 13. On 05/07/2021 patient seen in follow-up in intensive care unit, she is lethargic, she is slow to respond, she only provides yes or no responses occasionally, still very encephalopathic. She did receive 1 mg of Ativan yesterday for the MRI of the brain, she required 1 more dose of 1 mg Ativan in the 90s for possible episode of breakthrough seizure. CT of the brain on admission showed no acute intracranial abnormality, additional cerebral atrophy. MRI of the brain showed no evidence for recent infarct, he did show some nonspecific white matter changes possibly a product of chronic small vessel ischemic changes. EEG was completed yesterday showing the ground slowing suggestive of moderate to severe encephalopathy, there were no focal slowing or epileptiform discharges or seizure activity on the EEG. Patient was found to have E. coli in the blood culture, she currently remains on Rocephin 2 g every 24 hours. Zosyn has been discontinued, she is not requiring any vasopressors at the moment, she did require small dose of norepinephrine overnight. Hemodynamically stable, blood pressure is 112/66, slightly tachycardic in sinus mechanism with a rate of 106 BPM, low-grade fever this morning with a temp of 100.1F. Follow-up with culture showed gram-negative bacilli, fungal culture is pending. Urine culture is pending. Patient appears to be breathing comfortably, she is only requiring 2 L of oxygen a pulse ox of 95%, no cough, lung sounds are clear diminished at the bases, no rhonchi or wheezing on today's exam. Today's labs have been reviewed, white blood cell count is 8.5, hemoglobin 10.4, sodium is 144, potassium is 4.0, chloride is 118, CO2 is 15, renal profile is improving, and BUN is down to 43, creatinine is 1.37. Her last plasma lactic acid from yesterday was 1.9. Espinoza catheter is in place and she is producing urine outputs in the order of 30-60 ML per hour. Renal ultrasound showed no evidence of hydronephrosis at this point, no nephrolithiasis was seen, no masses were identified. Lumbar puncture was attempted at the bedside, however there was a grossly bloody fluid returned, which clotted, and there was a suspicion that the needle was in the blood vessel. The fluid has been discarded, and anesthesia has been consulted for a repeat LP. CT of the brain without contrast will be repeated this morning. Otherwise clinically patient seems to be improving with the exception of continued confusion. She does have multiple psychiatric problems, her baseline mentation is unknown. Neurology is following, case was discussed with them. ID service is following. Hemodynamically she appears to be more stable, overall fever pattern has improved since admission. Renal profile has improved. Her Depakote dose has been adjusted as her Depakote level was subtherapeutic at 24.2. She is currently receiving IV Depakote 750 mg twice daily per neurology recommendations. On 05/08/2021 patient seen in follow-up in the intensive care unit, she still confused, slow to respond, she is only oriented to person. But appears to be in no acute distress, overnight she required on and off small dose of norepinephrine which is currently off again since 4:00 this morning. She is currently on D5 W with 1 amp of bicarbonate at 100 ML per hour. She is on 2 L of oxygen her pulse ox is 92-94%. Overall her fever pattern has improved since admission, and she only had low-grade fevers overnight, with a temp of 99.8F. She remains on Rocephin, urine culture was positive for E. coli, blood cultures were positive for E. coli as well, her most recent follow-up blood culture from 05/07/2021 has shown no growth, patient undergone LP yesterday with anesthesia, and CSF preliminary Gram stain showed no organisms. Glucose content in the CSF was 72, total protein was 48, appearance was clear and colorless, there were no RBCs or nucleated cells noted. Pro calcitonin level was 6.68. Her white count is improving, and is down to 6.2 on today's labs, hemoglobin is 9.9, platelet count is 91, sodium is 145, potassium 3.4, chloride is 116, CO2 is 18, renal profile is improving and BUN is down to 34 creatinine is 1.2. Chest x-ray shows bilateral pleural effusions with bibasilar infiltrates possibly related to fluid overload. Patient went into A. fib with RVR, and she was started on Cardizem infusion currently infusing at 5 mg per hour. The heart rate is better controlled. Remains on Depakote. Patient has no documented history of seizure disorder, she is on Depakote for a mood stabilizing effect. EEG showed no evidence of epileptiform discharges or seizure activity. CT of the brain showed age-related atrophic and chronic small vessel ischemic changes without acute intracranial process. Objective - Vital Signs Vital signs: Vital Signs Temp 99.8 F H 05/08/21 12:00 Pulse 99 05/08/21 13:00 Resp 23 05/08/21 13:00 BP 95/57 05/08/21 13:00 Pulse Ox 94 L 05/08/21 13:00 Intake & Output 05/07/21 05/08/21 05/08/21 18:59 06:59 18:59 Intake Total 1610 1401.375 100 Output Total 670 1020 115 Balance 940 381.375 -15 Weight 115.9 kg Intake: IV 1610 1310 100 Dextrose 5% in Water 1, 1000 100 000 ml @ 100 mls/hr IV . [id number] [facility] with Sodium Bicarb (1 Meq/ml) 50 ml Rx#:[id number] Sodium Chloride 0.9% 1, 1560 260 000 ml @ 130 mls/hr IV . [id number] [facility] Rx#:[id number] Valproate Sodium 750 mg 50 50 In Sodium Chloride 0.9% 50 ml @ 50 mls/hr IVPB Q12HR [facility] Rx#:[id number] Intake, IV Titration 91.375 Amount Norepinephrine 4 mg In 91.375 Sodium Chloride 0.9% 250 ml @ 0.05 MCG/KG/MIN 19. 01 mls/hr IV .[id number] [facility] Rx#:[id number] Output: Urine 670 1020 115 Other: Voiding Method Indwelling Catheter Indwelling Catheter - Exam GENERAL EXAM: Drowsy, confused, 56-year-old obese white female, on 2 L of oxygen and pulse ox of 95%, slow to respond, only provides yes or no responses occasionally, comfortable in no apparent distress. HEAD: Normocephalic/atraumatic. EYES: Normal reaction of pupils, equal size. Conjunctiva pink, sclera white. NOSE: Clear with pink turbinates. THROAT: No erythema or exudates. NECK: No masses, no JVD, no thyroid enlargement, no adenopathy. CHEST: No chest wall deformity. Symmetrical expansion. LUNGS: Equal air entry with no crackles, wheeze, rhonchi or dullness. CVS: Irregular rate and rhythm, normal S1 and S2, no gallops, no murmurs, no rubs ABDOMEN: Soft, nontender. No hepatosplenomegaly, normal bowel sounds, no guarding or rigidity. EXTREMITIES: No clubbing, edema, no cyanosis, 2+ pulses and upper and lower extremities. MUSCULOSKELETAL: Muscle strength and tone normal. SPINE: No scoliosis or deformity SKIN: No rashes CENTRAL NERVOUS SYSTEM: Drowsy, awakens to verbal stimulation, oriented to 0. No focal deficits, tone is normal in all 4 extremities. - Labs CBC & Chem 7: 05/08/21 04:46 05/08/21 04:46 Labs: Abnormal Lab Results - Last 24 Hours (Table) 05/07/21 05/08/21 05/08/21 Range/Units 05:05 00:13 04:46 RBC 2.88 L (3.80-5.40) m/uL Hgb 9.9 L (11.4-16.0) gm/dL Hct 30.2 L (34.0-46.0) % MCV 104.7 H (80.0-100.0) fL Plt Count 91 L (150-450) k/uL Lymphocytes # 0.6 L (1.0-4.8) k/uL Potassium (3.5-5.1) mmol/L Chloride (98-107) mmol/L Carbon Dioxide (22-30) mmol/L BUN (7-17) mg/dL Creatinine (0.52-1.04) mg/dL Glucose (74-99) mg/dL POC Glucose (mg/dL) 128 H (75-99) mg/dL Total Protein (6.3-8.2) g/dL Albumin (3.5-5.0) g/dL Procalcitonin 6.68 H (0.02-0.09) ng/mL 05/08/21 05/08/21 05/08/21 Range/Units 04:46 06:05 11:56 RBC (3.80-5.40) m/uL Hgb (11.4-16.0) gm/dL Hct (34.0-46.0) % MCV (80.0-100.0) fL Plt Count (150-450) k/uL Lymphocytes # (1.0-4.8) k/uL Potassium 3.4 L (3.5-5.1) mmol/L Chloride 116 H (98-107) mmol/L Carbon Dioxide 18 L (22-30) mmol/L BUN 34 H (7-17) mg/dL Creatinine 1.20 H (0.52-1.04) mg/dL Glucose 107 H (74-99) mg/dL POC Glucose (mg/dL) 106 H 117 H (75-99) mg/dL Total Protein 6.1 L (6.3-8.2) g/dL Albumin 2.8 L (3.5-5.0) g/dL Procalcitonin (0.02-0.09) ng/mL Microbiology - Last 24 Hours (Table) 05/05/21 19:47 Urine Culture - Final Urine,Voided Escherichia coli 05/05/21 19:45 Blood Culture Gram Stain - Final Blood Blood Culture - Final Escherichia coli 05/05/21 19:30 Blood Culture Gram Stain - Final Blood Blood Culture - Final Escherichia coli 05/07/21 11:00 CSF Gram Stain - Preliminary Cerebral Spinal Fluid CSF Culture - Preliminary 05/07/21 05:05 Blood Culture - Preliminary Blood No Growth after 24 hours Assessment and Plan Plan: #1. Altered mental status, likely secondary to sepsis induced metabolic encephalopathy. No seizure activity. No focal neurological deficit. Neuro workup is in progress. LP was performed on 05/07/2021, preliminary Gram stain showing no organisms, glucose level was 72, he was clear colorless CSF fluid #2. UTI with sepsis most secondary to gram-negative bacteria. Urine cultures showed E. coli. Currently on IV Rocephin 2 g in addition to IV fluids. He received a total of 3 L of IV fluid. Hemodynamically stable on no pressors #3. E. coli bacteremia related to urinary tract infection, final urine culture is still pending at this time #4. Septic shock, recovered #5. Myoclonic jerks, rule out seizures. EEG showed moderate to severe encephalopathy, but no evidence of epileptiform discharges or seizure #6. Acute kidney injury, related to ATN, improving #7. Paroxysmal atrial fibrillation current rhythm is sinus. The patient was given a bolus of amiodarone 150 mg 1 with good results #8. History of fall with left fib/tib Fracture, seen by orthopedic surgery during an earlier admission and the patient is currently being managed conservatively through a boot #9. Obesity with a BMI of 37.8 #10. History of smoking #11. History of schizoaffective disorder #12. A. fib with RVR, patient has been started on Cardizem infusion on 05/08/2021. Will be started on Eliquis for anticoagulation Plan: Repeat CT of the brain has been reviewed showing no acute intracranial process LP was done at the bedside yesterday, Gram stain of the CSF showing no organisms, he was clear colorless fluid Continue Rocephin for antibiotic coverage Patient was started on Cardizem infusion for rate control for episode of A. fib with RVR, currently better controlled Start Eliquis 5 mg twice daily for anticoagulation, stop Lovenox Today's labs have been noted, leukocytosis is improving, renal profile is improving, only low-grade fevers Patient however remains encephalopathic, but may be a bit more responsive Neurology is following, no evidence of seizures on the EEG Unknown baseline is unknown as the patient has multiple psychiatric issues for which she takes medications We'll continue to monitor in the ICU Maintain aspiration precautions I performed a history & physical examination of the patient and discussed their management with my nurse practitioner, Tiara Main. I reviewed the nurse practitioner's note and agree with the documented findings and plan of care. Lung sounds are positive for clear breath sounds. throughout the lung wright. The findings and the impression was discussed with the patient. I attest to the documentation by the nurse practitioner. Time with Patient: Greater than 30
--- NOTE | 2021-05-08 15:18 | CDI ---
Documentation Clarification Form Date: 05/08/2021 03:04:38 PM From: Makayla Pan CCS, CCDS Admit Date: 05/05/2021 08:28:00 PM Patient Name: Alva Angel Visit Number: [id number] Discharge Date: ATTENTION: The Clinical Documentation Specialists (CDI) and [facility] Coding Staff appreciate your assistance in clarifying documentation. Please respond to the clarification below the line at the bottom and electronically sign. The CDI & [facility] Coding staff will review the response and follow-up if needed. Please note: Queries are made part of the Legal Health Record. If you have any questions, please contact the author of this message via ITS. Dr. Keo Mcintosh: Per the 05/06 H/P, the following is documented: ...also noticed that the patient was breathing heavy, was hypoxic & tachycardic. Based on this information and the findings below, is there an additional diagnosis that is clinically appropriate for this patient? History/Risk Factors per the 05/06 H/P: Atrial Fibrillation, Bibasilar Fibrotic Lung, Cardiac Valve Replacement, Obesity w/BMI 43.9, Schizoaffective Disorder, Nicotine use. Clinical Indicators: Presented to the ED on 05/05 via EMS with Altered Mental Status, Fever, Tachycardia, recently treated for a UTI. ED Clinical Impression: Sepsis, UTI, Dehydration, Acute Kidney Injury, Delirium due to general medical condition. 05/05 VS: T 102.2, P 122, R 18 - 32, BP 102/76, PO 89 RA - 95 4Lnc, BMI: 43.9 05/05 LAB: WBC 13.7, Hgb 11.2, Hct 33.3, Neut 12.2, Lymph 0.7; PT 14.1, INR 1.4; CO2 21, BUN 45, Cr 3.16, Gluc 159, Lactic Acid 2.9, 2.8; Total Bili 1.5, AST 40, Albumin 31. ABG: rt radial: pCO2 24, pO2 270, HCO3 16, Total CO2 17, O2 Sat 100.0 05/05 COVID negative 05/08 CXR: Correlate for interstitial pneumonia w/basilar infiltrates for CHF. Treatment: O2 4Lnc. 05/06: High Flow O2 60%; IV Rocephin, IV Na Cl 500 mls @ 1000 mls/hr q35M, IV Na Cl 1,000 mls @ 130 mls/hr q7H, IV Na Cl 1,000 mls @ 999 mls/hr q1H, IV Rocephin, IV Valproic Acid in Na Cl. 05/06: IV Benadryl, IV Zosyn, IV Tylenol, IV Solumedrol, IV Dextrose/Water w/Amiodarone, IV Lactated Ringers 1,000 mls @ 999 mls/hr q1H x2, IV Rocephin, Lovenox sq, IV PPI, Nicotine Patch. Is there an additional diagnosis that is clinically appropriate for this patient? [ x ] Acute Hypoxic Respiratory Failure [ ] Acute Hypercapnic Respiratory Failure [ ] Acute on Chronic Respiratory Failure, please specify type (Hypoxic, Hypercapnic, etc): [ ] Chronic Hypoxic Respiratory Failure [ ] Chronic Hypercapnic Respiratory Failure [ ] Other, please specify [ ] Unable to determine (Template Last Revised: November 2020) MTDD
[2021-05-08] MEDS ORDERED: LORazepam 2 MG/ML INJ IV STA (15:28)
[2021-05-08] MEDS ORDERED: LACOSAMIDE IV 200 MG in SODIUM CHLORIDE 0.9% 50 ML IVPB STA (15:29)
--- NOTE | 2021-05-08 18:06 | PN ---
PROGRESS NOTE DATE OF SERVICE: 05/08/2021 REASON FOR FOLLOWUP: E coli UTI and bacteremia. INTERVAL HISTORY: The patient is afebrile. The patient is slightly more awake and alert. She is breathing comfortably. The patient is not a very good historian, though. No vomiting, diarrhea, or other changes reported by the nursing staff. PHYSICAL EXAMINATION: Blood pressure 125/71 with a pulse of 99, temperature 99.8. She is 94% on 2 L nasal cannula. GENERAL DESCRIPTION: General description is is a middle-aged female lying in bed in no distress. RESPIRATORY SYSTEM: Unlabored breathing. Decreased breath sounds at the bases. No wheeze. HEART: S1, S2. Regular rate and rhythm. ABDOMEN: Soft. No tenderness. LABS: Hemoglobin is 9.2, white count 6.2. BUN of , creatinine 1.20. DIAGNOSTIC IMPRESSION AND PLAN: Patient with an Escherichia coli and bacteremia. The patient is currently covered with Rocephin; to continue and monitor her clinical course closely. MMODL / IJN: [id number] /
[2021-05-08 18:41] LABS: Glucose,Whole Blood 137 mg/dL (75-99)
--- NOTE | 2021-05-08 19:45 | EEG ---
ELECTROENCEPHALOGRAM REPORT DATE OF SERVICE: 05/08/2021 This is a 56-year-old woman who continues to have altered mental status and tremors of both upper extremities. The video EEG is obtained to evaluate for seizure epileptiform activity. RELEVANT MEDICATION: Depakote. EEG TYPE: A routine 21 channel EEG is performed with video using the 10/20 electrode placement system. DESCRIPTION: Wakefulness and drowsiness are obtained. During wakefulness the background consists of low to moderate voltage nonrhythmic 3 to 4 hertz delta activity intermixed with theta activity. At times, the background consists of diffuse nonrhythmic 5-6 hertz theta activity. There is no physiological sleep architecture seen. There is no focal slowing seen. Interictal and ictal is around 11:56 during the recording, electrographically the patient had rhythmic moderate voltage diffuse 4.5-5 hertz theta activity lasting for 20 seconds. While clinically, the patient started having right arm jerking, flexion, extension, pulsion and was repetitive. Her eyes were closed and her left hand in a flexed posture, resting on her abdomen. The episode seems suspicious for seizure. ACTIVATION PROCEDURES: Photic stimulation and hyperventilation are not performed. CLINICAL INTERPRETATION: This is an abnormal routine EEG. The background slowing is suggestive of moderate to severe encephalopathy. There seems to be an episode highly suspicion of a seizure (as stated above) and clinically the patient had jerking of the right upper extremity in which episode lasted for 20 seconds. There is no epileptiform discharges. Clinical correlation is recommended. LUZMARIA / IRAIDA: [id number] / MTDD
[2021-05-08] MEDS ORDERED: VALPROATE SODIUM 1,000 MG in SODIUM CHLORIDE 0.9% 100 ML IVPB SCH (21:00)
[2021-05-08] MEDS ORDERED: VALPROATE SODIUM 750 MG in SODIUM CHLORIDE 0.9% 50 ML IVPB SCH (21:00)
[2021-05-08] MEDS: PALIPERIDONE 6 MG TAB.ER.24 PO SCH (21:17)
[2021-05-08] MEDS: APIXABAN 5 MG TAB PO SCH (21:18)
[2021-05-09 00:02] LABS: Glucose,Whole Blood 103 mg/dL (75-99)
[2021-05-09] MEDS: LACOSAMIDE IV 100 MG in SODIUM CHLORIDE 0.9% 50 ML IVPB SCH ×2 (00:18→11:13)
[2021-05-09] MEDS: DILTIAZEM 125 MG in SODIUM CHLORIDE 0.9% 100 ML IV SCH (03:37)
[2021-05-09 05:08] LABS: Basophils % (A) 0 %; Eosinophils % (A) 1 %; HCT 29.8 % (34.0-46.0); HGB 9.6 gm/dL (11.4-16.0); Hypochromasia Moderate; Lymphocytes # (A) 0.5 k/uL (1.0-4.8); Lymphocytes % (A) 8 %; MCH 33.5 pg (25.0-35.0); MCHC 32.1 g/dL (31.0-37.0); MCV 104.2 fL (80.0-100.0); Macrocytosis Moderate; Mean Platelet Volume 8.1; Monocytes # (A) 0.4 k/uL (0-1.0); Monocytes % (A) 7 %; Neutrophils # (A) 4.6 k/uL (1.3-7.7); Neutrophils % (A) 81 %; Poikilocytosis Slight; RBC 2.86 m/uL (3.80-5.40); RDW 14.6 % (11.5-15.5); WBC 5.7 k/uL (3.8-10.6)
[2021-05-09 05:21] LABS: Platelet Count 70 k/uL (150-450)
[2021-05-09 05:35] LABS: Albumin 2.5 g/dL (3.5-5.0); Calcium 8.6 mg/dL (8.4-10.2); Potassium 3.3 mmol/L (3.5-5.1); Total Bilirubin 0.4 mg/dL (0.2-1.3); Total Protein 5.7 g/dL (6.3-8.2)
[2021-05-09 06:17] LABS: Glucose,Whole Blood 107 mg/dL (75-99)
[2021-05-09] MEDS ORDERED: POTASSIUM BICARBONATE/CIT AC 20 MEQ TABLET.EFF PO ONE (06:20)
[2021-05-09] MEDS: LEVOTHYROXINE 50 MCG TAB PO SCH (06:43)
[2021-05-09] MEDS: DEXTROSE 5% IN WATER 1,000 ML with SODIUM BICARB (1 MEQ/ML) 50 ML IV SCH ×2 (06:43→17:37)
[2021-05-09] MEDS: BUDESONIDE 1 MG/2 ML NEBU INHALATION SCH ×2 (07:53→20:26)
[2021-05-09] MEDS: IPRATROPIUM-ALBUTEROL 3 ML NEB INHALATION SCH ×4 (07:53→20:26)
[2021-05-09] MEDS: PANTOPRAZOLE 40 MG/10 ML VIAL IVP SCH (09:11)
[2021-05-09] MEDS: NICOTINE 21MG/24HR PATCH TRANSDERM SCH (09:12)
[2021-05-09] MEDS: APIXABAN 5 MG TAB PO SCH ×2 (09:23→20:42)
[2021-05-09] MEDS: PALIPERIDONE 3 MG TAB.ER.24 PO SCH (09:23)
[2021-05-09] MEDS ORDERED: LORazepam 2 MG/ML INJ IV STA (09:31)
[2021-05-09] MEDS: VALPROATE SODIUM 1,000 MG in SODIUM CHLORIDE 0.9% 50 ML IVPB SCH ×2 (09:51→20:42)
--- NOTE | 2021-05-09 10:00 | P.PN ---
Subjective Progress Note Date: 05/09/21 The patient seen at bedside and per the patient's nurse she stated that that she had the patient the new for the first time today during her admission but does not see any improvement and the patient is not responding to her. She continues to have these tremors of bilateral upper extremities per the nurse and not responding. Yesterday (05/08/21) the patient had a routine EEG and showed there is an epis ode that was highly suspicious for seizure lasting for 20 seconds, and the patient was having jerking of the right upper extremity. The back slowing suggestive of moderate to severe encephalopathy. There is no epileptiform discharges. Because of the seizure episode noted over the EEG I gave the patient 1 mg Ativan yesterday, loaded the patient with Vimpat 200 mg and started the patient on Vimpat 100 mg twice a day and continued Depakote 750mg ever 12 hours. Objective - Vital Signs Vital signs: Vital Signs Temp 98.8 F 05/09/21 00:00 Pulse 98 05/09/21 08:14 Resp 19 05/09/21 07:00 BP 133/70 05/09/21 07:00 Pulse Ox 92 L 05/09/21 07:53 Intake & Output 05/08/21 05/09/21 05/09/21 18:59 06:59 18:59 Intake Total 1300 1520.667 100 Output Total 1235 1215 90 Balance 65 305.667 10 Weight 115.9 kg 116.9 kg Intake: IV 1300 1450 100 Dextrose 5% in Water 1, 1200 1200 100 000 ml @ 100 mls/hr IV . [id number] NIESHA with Sodium Bicarb (1 Meq/ml) 50 ml Rx#:[id number] Lacosamide IV 200 mg In 200 Sodium Chloride 0.9% 50 ml @ 100 mls/hr IVPB ONCE STA Rx#:[id number] Valproate Sodium 750 mg 50 50 In Sodium Chloride 0.9% 50 ml @ 50 mls/hr IVPB Q12HR NIESHA Rx#:[id number] cefTRIAXone 2 gm In 50 Sodium Chloride 0.9% 50 ml @ 100 mls/hr IVPB Q24HR NIESHA Rx#:[id number] Intake, IV Titration 70.667 Amount Diltiazem 125 mg In 70.667 Sodium Chloride 0.9% 100 ml @ 5 MG/HR 5 mls/hr IV .Q24H [facility] Rx#:[id number] Output: Urine 1235 1215 90 Other: Voiding Method Indwelling Catheter Indwelling Catheter - Exam GENERAL: The patient is morbid obese woman, lying in bed and does not seem in acute distress. NEUROLOGICAL: Higher mental function: The patient is drowsy but awakeable to voice. She is not verbally responding or following commands. Cranial nerves: The pupils are round, equal and reactive to light. Visual wright could not be assessed. No facial weakness. Hard to assess the rest of cranial nerves. Motor: The strength is able to lift bilateral upper above gravity without focality.. Increase tone in uppers. Has tremors of uppers and not lower Cerebellum: Could not assess. Sensation: Could not assess. Reflexes (right/left): 2+ throughout. Plantars are mute bilaterally. WORK-UP: * MRI of brain is reported as no MRI evidence for recent infarct. Moderate diffuse cerebral atrophy greatest over bilateral frontal lobe somewhat promin ent for patient chronologic age with the mild to moderate nonspecific white matter changes favored the product of chronic small vessel ischemic change. * Repeat CT of the head on 05/07/21 is reported as age-related atrophic and chronic small vessel ischemic change without acute intracranial process seen at this time. * CT of lumbar 05/07/21 was reported as suboptimal study but no acute finding are evident. In the body they reported it is reported that the patient has moderate broad disc bulge and mild to moderate facet arthropathy at L3-L4. There is a moderate to advanced facet arthropathy and ligamentum flavum hypertrophy with moderate broad disc bulge at L4-L5 and there is moderate facet arthropathy at L5-S1. * CSF study on 05/07/21: clear, colorless, 0 red blood cell, 0 nucleated cells, total protein is 48 (NORMAL), glucose 72 (borderline low high level. Normal is 40-70). CSF is negative for meningoencephalitis. * EEG on 05/06/2021 is abnormal routine EEG. The back was slowing suggestive of moderate to severe encephalopathy. There are no focal slowing, epileptiform discharges or seizure on the EEG. Clinical correlation is recommended * Routine EEG (05/08/21) and showed there is an episode that was highly suspicious for seizure lasting for 20 seconds, and the patient was having jerking of the right upper extremity. The back slowing suggestive of moderate to severe encephalopathy. There is no epileptiform discharges. * The blood cultures is positive for E.coli. Urine cultures: Gram neg bacilli. * Depakote level: 24.2 (subtherapeutic. Normal levels are between 50-120). Repeat Valproic acid on 05/08/21: 59 (is low normal). * Vitamin B12: 401 (normal). Folate: 8.0 (normal). TSH: 1.770 (normal). - Labs CBC & Chem 7: 05/09/21 04:18 05/09/21 04:18 Labs: Abnormal Lab Results - Last 24 Hours (Table) 05/08/21 05/08/21 05/09/21 Range/Units 11:56 18:38 00:00 RBC (3.80-5.40) m/uL Hgb (11.4-16.0) gm/dL Hct (34.0-46.0) % MCV (80.0-100.0) fL Plt Count (150-450) k/uL Lymphocytes # (1.0-4.8) k/uL Potassium (3.5-5.1) mmol/L Chloride (98-107) mmol/L Carbon Dioxide (22-30) mmol/L BUN (7-17) mg/dL Glucose (74-99) mg/dL POC Glucose (mg/dL) 117 H 137 H 103 H (75-99) mg/dL Total Protein (6.3-8.2) g/dL Albumin (3.5-5.0) g/dL 05/09/21 05/09/21 05/09/21 Range/Units 04:18 04:18 06:16 RBC 2.86 L (3.80-5.40) m/uL Hgb 9.6 L (11.4-16.0) gm/dL Hct 29.8 L (34.0-46.0) % MCV 104.2 H (80.0-100.0) fL Plt Count 70 L (150-450) k/uL Lymphocytes # 0.5 L (1.0-4.8) k/uL Potassium 3.3 L (3.5-5.1) mmol/L Chloride 111 H (98-107) mmol/L Carbon Dioxide 21 L (22-30) mmol/L BUN 24 H (7-17) mg/dL Glucose 120 H (74-99) mg/dL POC Glucose (mg/dL) 107 H (75-99) mg/dL Total Protein 5.7 L (6.3-8.2) g/dL Albumin 2.5 L (3.5-5.0) g/dL Microbiology - Last 24 Hours (Table) 05/07/21 05:05 Blood Culture - Preliminary Blood No Growth after 48 hours 05/07/21 11:00 CSF Gram Stain - Preliminary Cerebral Spinal Fluid CSF Culture - Preliminary 05/05/21 19:47 Urine Culture - Final Urine,Voided Escherichia coli 05/05/21 19:45 Blood Culture Gram Stain - Final Blood Blood Culture - Final Escherichia coli 05/05/21 19:30 Blood Culture Gram Stain - Final Blood Blood Culture - Final Escherichia coli Assessment and Plan Assessment: New onset seizure (seems provoked from underlying UTI infection). Altered mental status due to likely septic encephalopathy from acute urinary tract infection as well as component metabolic encephalopathy (acute kidney insuffiency) Myoclonic jerks likely due to above--improving. Acute kidney insufficiency--resolved Acute on chronic urinary tract infection History of fall with left tibial/fibial fracture in 02/2021 History of Schizoaffective disorder Plan: * Increased Depakote from 750mg every 12 hours IV bid to 1gm ever 12 hours (was at home dose of 500mg 1 tab bid for mood stablizer and was increased it which help mood and has antiepileptic effect). Continue Vimpat 100mgIV bid. I will give patient 1mg dose of Ativan now. * Ordered 2.5 hours EEG (STAT) to rule out any underlying seizure that is captured (since still has AMS and tremors of both hands). * Patient is on ceftriaxone for her urinary tract infection will defer the management to the ICU as well as the primary team. * Infection disease team is on board. * We'll defer the rest of the medical management to the primary as well as ICU team. * Recommend the patient to be transferred for escalation of care for long-term 24 hours EEGs with video. Plan was discussed with the patient ICU nurse. UPDATE: Patient was not able to get 2.5 hours EEG as inpatient because of availability of rv repair technician. Psychiatry was consulted by primary team for possible catatonia and psychiatry team spoke with me and felt it was not catatonia. They recommended to avoid Vimpat since patient seems more altered and see if increase Deapkote will help. Therefore, I discontinued Vimpat. Primary team stated that they are no beds available at outside facilities at this time for transfers. John Laws MD Neuro-Hospitalist Time with Patient: Greater than 30
[2021-05-09 11:32] LABS: Glucose,Whole Blood 110 mg/dL (75-99)
--- NOTE | 2021-05-09 14:01 | P.CN ---
Psychiatric Consult - . Consult date: 05/09/21 Consult:: 05/09/21 13:32 IDENTIFYING DATA: This patient is a 56 yo female with a history of schizoaffective disorder REASON FOR REFERRAL: Psychiatry was consulted for "query catatonia/antipsychotics". HISTORY OF PRESENT ILLNESS: The patient presented to the hospital on 05/05 and was brought in by EMS for fever tachycardia and apparently has been altered for the past 24 hours. Patient had treatment for a urinary tract infection. Carlos chung was previously on paliperidone by mouth 3 mg daily +6 mg daily at bedtime and also Depakote 500 mg twice a day by mouth. Patient apparently was not responding and was noted to have tremors bilaterally in her upper extremities. Neurology has been following patient and onboard. Patient had an MRI of the brain which showed diffuse cerebral atrophy. Patient's EEG on 05/08 apparently showed slowing suggestive of moderate to severe encephalopathy and also a questionable seizure activity. Depakote level was 59.0 on 05/08. Patient was resumed back on her paliperidone and also the Depakote IV. Separations Scientist spoke with patient's nurse who claims that patient was more awake yesterday apparently however today has been unresponsive. Patient was seen at the bedside and was unresponsive to her name or any commands and was somnolent. PAST PSYCHIATRIC HISTORY: Patient has a a history of schizoaffective disorder. Patient was previously on paliperidone and Depakote. Patient was last psychiatrically hospitalized in July 2021 mental health unit. PAST MEDICAL HISTORY: Obesity, asthma. ALLERGIES: as per EMR. CHEMICAL DEPENDENCY HISTORY: Unknown FAMILY PSYCHIATRIC/SUBSTANCE USE HISTORY: Unable to assess SOCIAL HISTORY: Unable to assess MENTAL STATUS EXAM: General Appearance: Patient appears to be obese, stated age is somnolent and unresponsive. Patient appears to have poor hygiene and grooming wearing hospital gown Behavior: Patient is calmly lying in bed and is somnolent. Unresponsive. Speech: Unresponsive Mood/Affect: Unable to assess Suicidality/Homicidality: Unable to assess Perceptions: Unable to assess Though content/process: Unable to assess Memory and concentration: Unable to assess Judgment and insight: Unable to assess IMPRESSIONS: Delirium, likely etiology unknown (toxic metabolic, infection vs medications?) Schizoaffective disorder PLAN: -At this time patient DOES NOT meet criteria for inpatient psychiatric admission. -Delirium precautions recommended with patient including - avoiding use of narcotics and GENERAL SURGEON sedatives, limit anticholinergic medications when possible, frequent re-orientation, minimize use of restraints, open window shades during the day and close them at night -Would recommend the following medication changes/additions: Okay with restarting patient's paliperidone at her home dose. Continue on with IV valproa te sodium in place of her Depakote by mouth. Discussed with neurology about patient's medications and suggested to discontinue Vimpat at this time as it could cause somnolence and tremors. Would try to avoid Ativan at this time or any other benzodiazepines as that may further increase patient's delirium/encephalopathy. -According to neurology, patient may have had a seizure on the EEG therefore would agree to go ahead with transfer to epilepsy monitoring unit if needed for furhter evaluation. -Communicated plan to patient's nurse and discussed plan with Dr. Rock and Dr. Laws over the phone. -Will continue to follow along peripherally if needed. -Please contact with any questions.
--- NOTE | 2021-05-09 16:05 | PN ---
PROGRESS NOTE DATE OF SERVICE: 05/09/2021 REASON FOR FOLLOWUP: E coli UTI and bacteremia. INTERVAL HISTORY: The patient is afebrile. The patient is hemodynamically stable. Mentation remains an issue. Patient was unable to provide any history. No vomiting, diarrhea or other changes reported by the nursing staff. PHYSICAL EXAMINATION: Blood pressure 134/68 with a pulse of 93, temperature 99.3. She is 95% on 2 L nasal cannula. GENERAL DESCRIPTION: General description is a middle-aged female lying in bed in no distress. RESPIRATORY SYSTEM: Unlabored breathing. Decreased breath sounds at the bases. No wheeze. HEART: S1, S2. Regular rate and rhythm. ABDOMEN: Soft. No tenderness. LABS: Hemoglobin 9.4, white count 5.7, BUN of 24, creatinine 1.03. DIAGNOSTIC IMPRESSION AND PLAN: Patient with Escherichia coli urinary tract infection and bacteremia, likely pyelonephritis. The patient is covered with Rocephin 2 grams that will be continued for now while monitoring her clinical course closely. Continue with supportive care. MMODL / IJN: [id number] /
--- NOTE | 2021-05-09 16:42 | P.PN ---
Subjective Progress Note Date: 05/09/21 Principal diagnosis: Altered mental status, sepsis, gram-negative bacteremia This is a 56-year-old here patient was hospitalized yesterday because of altered mental status, the patient was nonverbal and she was jerking and she was having Reiger's and high-grade fever and tachycardia. She was diagnosed having a UTI and this was a recurrent event. She initially she was admitted to the medical floor and following that the patient was transferred to the intensive care unit as the patient's mental status was quite low and the patient was having high- grade fever and questionable seizure activity. For that reason, the patient got transferred to the intensive care unit. The working diagnosis for now remains and recurrent urine checked infection. Mother the patient was in the hospital approximately a few months back and the patient had an E. coli UTI and sepsis. Suspect the same for now. On today's evaluation, the patient is more alert. She is following some simple commands although she is slow in answering questions or following commands at this point in time. No focal neurological deficit. No headaches. No neck stiffness. No focal neurological deficit. No clear evidence of any underlying seizure activity. EEG and MRI of the brain has already been ordered by neurology. Meanwhile, the patient is being treated with a combination of fluids and antibiotics. The patient received a total of 3 L of IV fluids and the patient is currently on a maintenance of 0.9 at 1:30 sees an hour the patient received 2 g of IV Rocephin. Cultures still pending for now. Her Espinoza catheter showed quite cloudy and abnormal urine output which is essentially clearing at this point in time. She also had a bout of atrial fibrillation with RVR yesterday and she was given a total of 150 mg of amiodarone and subsequently she converted to normal sinus rhythm. Note that she did the same during an earlier admission where she had A. fib. She converted to sinus rhythm. She was not placed on anticoagulation. Her echocardiogram was essentially within normal limits. The white cell count currently is at 7.8. Lactic acid level is down to 1.9 from 2.8. COVID-19 testing was negative. Rest of the electrolytes show an acute kidney injury with a creatinine of 3.16 and creatinine is improving down to 2.4. Sodium is at 139 with a bicarb level of 17 with a gap of 13. On 05/07/2021 patient seen in follow-up in intensive care unit, she is lethargic, she is slow to respond, she only provides yes or no responses occasionally, still very encephalopathic. She did receive 1 mg of Ativan yesterday for the MRI of the brain, she required 1 more dose of 1 mg Ativan in the 90s for possible episode of breakthrough seizure. CT of the brain on admission showed no acute intracranial abnormality, additional cerebral atrophy. MRI of the brain showed no evidence for recent infarct, he did show some nonspecific white matter changes possibly a product of chronic small vessel ischemic changes. EEG was completed yesterday showing the ground slowing suggestive of moderate to severe encephalopathy, there were no focal slowing or epileptiform discharges or seizure activity on the EEG. Patient was found to have E. coli in the blood culture, she currently remains on Rocephin 2 g every 24 hours. Zosyn has been discontinued, she is not requiring any vasopressors at the moment, she did require small dose of norepinephrine overnight. Hemodynamically stable, blood pressure is 112/66, slightly tachycardic in sinus mechanism with a rate of 106 BPM, low-grade fever this morning with a temp of 100.1F. Follow-up with culture showed gram-negative bacilli, fungal culture is pending. Urine culture is pending. Patient appears to be breathing comfortably, she is only requiring 2 L of oxygen a pulse ox of 95%, no cough, lung sounds are clear diminished at the bases, no rhonchi or wheezing on today's exam. Today's labs have been reviewed, white blood cell count is 8.5, hemoglobin 10.4, sodium is 144, potassium is 4.0, chloride is 118, CO2 is 15, renal profile is improving, and BUN is down to 43, creatinine is 1.37. Her last plasma lactic acid from yesterday was 1.9. Espinoza catheter is in place and she is producing urine outputs in the order of 30-60 ML per hour. Renal ultrasound showed no evidence of hydronephrosis at this point, no nephrolithiasis was seen, no masses were identified. Lumbar puncture was attempted at the bedside, however there was a grossly bloody fluid returned, which clotted, and there was a suspicion that the needle was in the blood vessel. The fluid has been discarded, and anesthesia has been consulted for a repeat LP. CT of the brain without contrast will be repeated this morning. Otherwise clinically patient seems to be improving with the exception of continued confusion. She does have multiple psychiatric problems, her baseline mentation is unknown. Neurology is following, case was discussed with them. ID service is following. Hemodynamically she appears to be more stable, overall fever pattern has improved since admission. Renal profile has improved. Her Depakote dose has been adjusted as her Depakote level was subtherapeutic at 24.2. She is currently receiving IV Depakote 750 mg twice daily per neurology recommendations. On 05/08/2021 patient seen in follow-up in the intensive care unit, she still confused, slow to respond, she is only oriented to person. But appears to be in no acute distress, overnight she required on and off small dose of norepinephrine which is currently off again since 4:00 this morning. She is currently on D5 W with 1 amp of bicarbonate at 100 ML per hour. She is on 2 L of oxygen her pulse ox is 92-94%. Overall her fever pattern has improved since admission, and she only had low-grade fevers overnight, with a temp of 99.8F. She remains on Rocephin, urine culture was positive for E. coli, blood cultures were positive for E. coli as well, her most recent follow-up blood culture from 05/07/2021 has shown no growth, patient undergone LP yesterday with anesthesia, and CSF preliminary Gram stain showed no organisms. Glucose content in the CSF was 72, total protein was 48, appearance was clear and colorless, there were no RBCs or nucleated cells noted. Pro calcitonin level was 6.68. Her white count is improving, and is down to 6.2 on today's labs, hemoglobin is 9.9, platelet count is 91, sodium is 145, potassium 3.4, chloride is 116, CO2 is 18, renal profile is improving and BUN is down to 34 creatinine is 1.2. Chest x-ray shows bilateral pleural effusions with bibasilar infiltrates possibly related to fluid overload. Patient went into A. fib with RVR, and she was started on Cardizem infusion currently infusing at 5 mg per hour. The heart rate is better controlled. Remains on Depakote. Patient has no documented history of seizure disorder, she is on Depakote for a mood stabilizing effect. EEG showed no evidence of epileptiform discharges or seizure activity. CT of the brain showed age-related atrophic and chronic small vessel ischemic changes without acute intracranial process. On 05/09/2021 patient seen in follow-up in intensive care unit, she had an EEG yesterday with the suspicion of seizure activity there was an episode that was highly suspicious of a seizure and clinically patient had jerking of the right upper extremity in which episode lasted for 20 seconds. There was no evidence of epileptiform discharges. Patient was started on Vimpat, in her Decadron dose was adjusted to 1000 mg twice daily. Neurology is closely following, patient remains on Rocephin IV for urinary tract infection and E. coli bacteremia. Uri ne cultures have also showed E. coli. Hemodynamically she is more stable, she is not on any vasopressor support, she remains on D5 W with 1 amp of bicarb at 100 ML per hour. Yesterday she had an episode of A. fib with RVR she was started on Cardizem infusion which is still infusing at 5 mg per hour, she had since converted to sinus rhythm her rate is controlled. Her blood cultures have been reviewed, follow blood cultures have shown no growth, CSF culture remains negative. The patient is still very lethargic, encephalopathic, she is not verbalizing, seems to be more lethargic on today's exam, she did receive a dose of 1 mg of Ativan per neurology earlier today for a concern of a seizure, to a half hour EEG was ordered and is pending. From pulmonary perspective she is being comfortably, she is on 2 L of oxygen pulse ox of 95%, she is having some low-grade fevers, pressure is stable, not requiring any vasopressor support. His labs have been reviewed, her white blood cell count is 5.7, hemoglobin of 9.6, sodium is 144, potassium 3.3, chloride is 111, CO2 21, BUN is 24 creatinine is 1.03. Urinary catheter is in place, and patient is seen urine in the order of 90-100 ML per hour. He was able to take some oral nutrition with assistance. Objective - Vital Signs Vital signs: Vital Signs Temp 99.3 F 05/09/21 12:00 Pulse 93 05/09/21 14:00 Resp 29 H 05/09/21 14:00 BP 134/68 05/09/21 14:00 Pulse Ox 95 05/09/21 14:00 Intake & Output 05/08/21 05/09/21 05/09/21 18:59 06:59 18:59 Intake Total 1300 1674.526 7967 Output Total 1235 1215 795 Balance 65 305.667 205 Weight 115.9 kg 116.9 kg Intake: IV 1300 1450 950 Dextrose 5% in Water 1, 1200 1200 800 000 ml @ 100 mls/hr IV . [id number] NIESHA with Sodium Bicarb (1 Meq/ml) 50 ml Rx#:[id number] Lacosamide IV 200 mg In 200 50 Sodium Chloride 0.9% 50 ml @ 100 mls/hr IVPB ONCE STA Rx#:[id number] Valproate Sodium 750 mg 50 50 50 In Sodium Chloride 0.9% 50 ml @ 50 mls/hr IVPB Q12HR NIESHA Rx#:[id number] cefTRIAXone 2 gm In 50 50 Sodium Chloride 0.9% 50 ml @ 100 mls/hr IVPB Q24HR NIESHA Rx#:[id number] Intake, IV Titration 70.667 Amount Diltiazem 125 mg In 70.667 Sodium Chloride 0.9% 100 ml @ 5 MG/HR 5 mls/hr IV .Q24H NIESHA Rx#:[id number] Oral 50 Output: Urine 1235 1215 795 Other: Voiding Method Indwelling Catheter Indwelling Catheter - Exam GENERAL EXAM: Drowsy, confused, 56-year-old obese white female, on 2 L of oxygen and pulse ox of 95%, slow to respond, only provides yes or no responses occasionally, comfortable in no apparent distress. HEAD: Normocephalic/atraumatic. EYES: Normal reaction of pupils, equal size. Conjunctiva pink, sclera white. NOSE: Clear with pink turbinates. THROAT: No erythema or exudates. NECK: No masses, no JVD, no thyroid enlargement, no adenopathy. CHEST: No chest wall deformity. Symmetrical expansion. LUNGS: Equal air entry with no crackles, wheeze, rhonchi or dullness. CVS: Irregular rate and rhythm, normal S1 and S2, no gallops, no murmurs, no rubs ABDOMEN: Soft, nontender. No hepatosplenomegaly, normal bowel sounds, no guarding or rigidity. EXTREMITIES: No clubbing, edema, no cyanosis, 2+ pulses and upper and lower extremities. MUSCULOSKELETAL: Muscle strength and tone normal. SPINE: No scoliosis or deformity SKIN: No rashes CENTRAL NERVOUS SYSTEM: Drowsy, awakens to verbal stimulation, oriented to 0. No focal deficits, tone is normal in all 4 extremities. - Labs CBC & Chem 7: 05/09/21 04:18 05/09/21 04:18 Labs: Abnormal Lab Results - Last 24 Hours (Table) 05/08/21 05/09/21 05/09/21 Range/Units 18:38 00:00 04:18 RBC 2.86 L (3.80-5.40) m/uL Hgb 9.6 L (11.4-16.0) gm/dL Hct 29.8 L (34.0-46.0) % MCV 104.2 H (80.0-100.0) fL Plt Count 70 L (150-450) k/uL Lymphocytes # 0.5 L (1.0-4.8) k/uL Potassium (3.5-5.1) mmol/L Chloride (98-107) mmol/L Carbon Dioxide (22-30) mmol/L BUN (7-17) mg/dL Glucose (74-99) mg/dL POC Glucose (mg/dL) 137 H 103 H (75-99) mg/dL Total Protein (6.3-8.2) g/dL Albumin (3.5-5.0) g/dL 05/09/21 05/09/21 05/09/21 Range/Units 04:18 06:16 11:30 RBC (3.80-5.40) m/uL Hgb (11.4-16.0) gm/dL Hct (34.0-46.0) % MCV (80.0-100.0) fL Plt Count (150-450) k/uL Lymphocytes # (1.0-4.8) k/uL Potassium 3.3 L (3.5-5.1) mmol/L Chloride 111 H (98-107) mmol/L Carbon Dioxide 21 L (22-30) mmol/L BUN 24 H (7-17) mg/dL Glucose 120 H (74-99) mg/dL POC Glucose (mg/dL) 107 H 110 H (75-99) mg/dL Total Protein 5.7 L (6.3-8.2) g/dL Albumin 2.5 L (3.5-5.0) g/dL Microbiology - Last 24 Hours (Table) 05/07/21 05:05 Blood Culture - Preliminary Blood No Growth after 48 hours 05/07/21 11:00 CSF Gram Stain - Preliminary Cerebral Spinal Fluid CSF Culture - Preliminary Assessment and Plan Plan: #1. Altered mental status, likely secondary to sepsis induced metabolic enc ephalopathy. EEG initially showed no evidence of seizure. No focal neurological deficit. Neuro workup is in progress. LP was performed on 05/07/2021, preliminary Gram stain showing no organisms, glucose level was 72, he was clear colorless CSF fluid #2. UTI with sepsis most secondary to gram-negative bacteria. Urine cultures showed E. coli. Currently on IV Rocephin 2 g in addition to IV fluids. He received a total of 3 L of IV fluid. Hemodynamically stable on no pressors #3. E. coli bacteremia related to urinary tract infection, final urine culture is still pending at this time #4. Septic shock, recovered #5. Myoclonic jerks, rule out seizures. EEG showed moderate to severe e ncephalopathy, but no evidence of epileptiform discharges or seizure on initial evaluation, subsequent EEG showed suspicious 22nd episode of seizure-like activity, patient has been started on Vimpat and Depacote dose adjusted #6. Acute kidney injury, related to ATN, recovered #7. Paroxysmal atrial fibrillation current rhythm is sinus. The patient was given a bolus of amiodarone 150 mg 1 with good results #8. History of fall with left fib/tib Fracture, seen by orthopedic surgery during an earlier admission and the patient is currently being managed conservatively through a boot #9. Obesity with a BMI of 37.8 #10. History of smoking #11. History of schizoaffective disorder #12. A. fib with RVR, patient has been started on Cardizem infusion on 05/08/2021. Will be started on Eliquis for anticoagulation. Today patient is back in sinus mechanism Plan: Neurologically patient remains quite encephalopathic, and there is a possibility of seizure most recent EEG Started on Vimpat, and Depakote dose has been adjusted Vital signs have been stable she has had no fever She is off vasopressor support Continues on Rocephin for E. coli urinary tract infection and E. coli bacteremia Back in sinus mechanism, continue Eliquis for anticoagulation Discontinue Cardizem infusion Metabolically her leukocytosis continues to improve, renal profile has recovered Maintain aspiration precautions, Discussed case with neurology Repeat EEG is pending The possibility patient may need to be transferred to tertiarycare facility for continuous EEG monitoring I performed a history & physical examination of the patient and discussed their management with my nurse practitioner, Tiara Main. I reviewed the nurse practitioner's note and agree with the documented findings and plan of care. Loulou ng sounds are positive for clear breath sounds. throughout the lung wright. The findings and the impression was discussed with the patient. I attest to the documentation by the nurse practitioner. Time with Patient: Greater than 30
[2021-05-09 18:06] LABS: Glucose,Whole Blood 106 mg/dL (75-99)
[2021-05-09] MEDS: PALIPERIDONE 6 MG TAB.ER.24 PO SCH (20:42)
--- NOTE | 2021-05-09 21:17 | P.PN ---
Progress Note - Text Progress Note Date: 05/09/21 Chief Complaint: Altered mentation History of presenting complaint: This is a 56-year-old patient, presented to ER yesterday evening with altered mental status. Came in with the EMS with fever and tachycardia. Symptoms had been going for about 24 hours. Patient was not verbalizing anything in the ER. Per the EMS report: Family stated that patient had become confused for 2 days. Has stopped talking yesterday. Had not eaten or drank anything for last refill Ross. He also noticed that patient was breathing heavy was hypoxic and tachycardic. Upon getting admitted to the floor overnight patient been having fevers. Ice packs were ordered. Patient is tachycardic. Lethargic. Patient already received 1 dose of ceftriaxone in the ER. An early in the night is started on IV Zosyn. A team was called and patient smoked in ICU. Patient remains less responsive. Only to tactile stimuli she will move a bit.. Not answering questions. Eyes close. Consultations were placed to provider relations representative, neurology, ID. Patient does live with his son and girlfriend who takes care of the patient. Admitted with UTI from cystitis with sepsis, bilateral pneumonia, septic shock, acute kidney injury with ATN.IV fluids. IV ceftriaxone. Admitted to the ICU. May 07: Bit awake. Answering occasional questions. Following simple commands. MRI and EEG of the brain was negative. Earlier today lumbar puncture was attempted. Urine culture and blood culture showing gram-negative bacilli/E. coli May 08: ICU: She had more awake. Will answer occasionally. Eating little. Went into A. fib this afternoon. Cardiology consulted. Getting a repeat EEG. Remains afebrile. Psychiatry being consulted May 09: ICU: Patient with having some jerking movements. Initial EEG was negative. Repeat EEG showed some questionable seizure activity. Earlier today Dr. Blackman from neurology has asked for the patient to be transferred to [facility] in [place] for continuous EEG monitoring. We do not have the facility for the same. In the meantime I spoke to Dr. Saini from psychiatry. He did evaluate the patient. Did not feel there was any catatonia. Patient did receive Ativan this afternoon. Patient less responsive today. Care was discussed with Dr. Mcintosh and fit Dr. Blackman from neurology. Patient converted to sinus rhythm. Sinus tachycardia Review of systems: Could not be obtained because patient is lethargic Active Medications Albuterol/Ipratropium (Ipratropium-Albuterol 3 Ml Neb) 3 ml INHALATION RT-QID [facility] Last Admin: 05/09/21 20:26 Dose: 3 ml Documented by: Apixaban (Apixaban 5 Mg Tab) 5 mg PO BID [facility]; Protocol Last Admin: 05/09/21 20:42 Dose: 5 mg Documented by: Budesonide (Budesonide 1 Mg/2 Ml Nebu) 1 mg INHALATION RT-BID [facility] Last Admin: 05/09/21 20:26 Dose: 1 mg Documented by: Ceftriaxone Sodium 2 gm/ (Sodium Chloride) 50 mls @ 100 mls/hr IVPB Q24HR [facility] Last Admin: 05/09/21 09:12 Dose: 100 mls/hr Documented by: Sodium Bicarbonate 50 ml/ (Dextrose/Water) 1,050 mls @ 100 mls/hr IV .[id number] [facility] Last Admin: 05/09/21 17:37 Dose: 100 mls/hr Documented by: Diltiazem HCl 125 mg/ Sodium (Chloride) 125 mls @ 5 mls/hr IV .Q24H [facility] Last Admin: 05/09/21 03:37 Dose: 5 mg/hr, 5 mls/hr Documented by: Valproic Acid 1,000 mg/ Sodium (Chloride) 60 mls @ 50 mls/hr IVPB Q12HR [facility] Last Admin: 05/09/21 20:42 Dose: 50 mls/hr Documented by: Levothyroxine Sodium (Levothyroxine 50 Mcg Tab) 50 mcg PO DAILY@0630 [facility] Last Admin: 05/09/21 06:43 Dose: 50 mcg Documented by: Miscellaneous Information (Potassium Replacement Protocol 1 Each Misc) 1 each MISCELLANE DAILY PRN; Protocol PRN Reason: Per Protocol Naloxone HCl (Naloxone 0.4 Mg/Ml 1 Ml Vial) 0.2 mg IV Q2M PRN PRN Reason: Opioid Reversal Nicotine (Nicotine 21mg/24hr Patch) 1 patch TRANSDERM DAILY [facility] Last Admin: 05/09/21 09:12 Dose: 1 patch Documented by: Paliperidone (Paliperidone 3 Mg Tab.Er.24) 3 mg PO DAILY [facility] Last Admin: 05/09/21 09:23 Dose: 3 mg Documented by: Paliperidone (Paliperidone 6 Mg Tab.Er.24) 6 mg PO HS [facility] Last Admin: 05/09/21 20:42 Dose: 6 mg Documented by: Pantoprazole Sodium (Pantoprazole 40 Mg/10 Ml Vial) 40 mg IVP DAILY [facility] Last Admin: 05/09/21 09:11 Dose: 40 mg Documented by: Past medical history to include: Atrial fibrillation, bibasilar fibrotic lung changes with honeycombing, schizoaffective disorder, nicotine use, in February of this year patient did have a left tibial plate to and left proximal fibular fracture Social history: Patient lives with her son and girlfriend, or take care of her. Smoker. Marijuana use history of Family history: Could not be obtained. Physical examination: VITAL SIGNS: 99.7, 93, 23, 139/73, 94% on 2 L GENERAL: Laying in bed, more lethargic today EYES: Pupils equal. Conjunctiva normal. HEENT: External appearance of nose and ears normal, oral cavity mucous membranes. NECK: JVD unable to assess; masses not palpable. HEART: First and second heart sounds are normal; no edema. LUNGS: Respiratory rate increased; decreased breath sounds. ABDOMEN: Soft, nontender, liver spleen not palpable, no masses palpable. PSYCH: Not answering questions, received Ativan. NEUROLOGICAL: Cranial nerves grossly intact; no facial asymmetry, was noted to have jerking movements and ear INVESTIGATIONS, reviewed in the clinical context: May 09: WBC 5.7 hemoglobin 9.6 platelets 70 potassium 3.3 creatinine 1.03 EEG [May 08] finding suggestive of moderate to severe encephalopathy. Episode of highly suspicious for seizure activity. No epileptiform activity noted May 08: WBC 6.2 hemoglobin 9.9 platelets 91 potassium 3.4 bicarb 18 BUN 34 creatinine 1.20 May 07: WBC 8.5 hemoglobin 10.4 platelets 111, bicarb 15 BUN 43 creatinine 1.37 CSF: Nucleated cells 0 glucose [address] brain [May 07]: Negative MRI brain: Nothing acute EEG: Not showing any epileptiform activity. Encephalopathy WBC 7.8 hemoglobin 12.1 platelets 105 potassium 5 bicarb 17 BUN 46 creatinine 2.4 to Admission labs: Potassium 4.4 BUN 45 creatinine 3.16 bilirubin 1.5 AST 40 ALT 25 albumin 3.1 UA positive for leukoesterase, WBC Coronavirus [BCR] not detected EKG tracing personally reviewed by me: Normal sinus rhythm. Heart rate 128 Chest x-ray film personally reviewed by me-bibasal infiltrates CT brain: Cerebral atrophy. Previous testing: CT chest and U for PE [02/24/2021] chronic parenchymal fibrotic changes greatest in the bases. With honeycombing. It is of groundglass opacities. 2-D echocardiogram: EF 55 have a 60%. [id number] tricuspid regurgitation. Some element of pulmonary hypertension Assessment and plan: -Patient presented with fevers altered mentation/metabolic/toxic encephalopathy. Patient has no focal findings.: Slow to respond Catatonic state ruled out by psychiatry. Possible seizures. -Possible seizure activity per neurology IV valproic acid -Acute UTI from cystitis with sepsis. Patient recently has had UTI and Espinoza catheter was removed. E. coli in both urine and blood culture IV ceftriaxone -Possible bilateral pneumonia, suspect gram-negative organism IV ceftriaxone -Septic shock IV fluids -Acute kidney injury, likely from ATN from sepsis: Improving Admission creatinine 3.16 Follow renal functions. IV fluids. Today creatinine 1.20 -Metabolic and lactic acidosis from renal failure/sepsis bicarbonate drip continue -Paroxysmal atrial fibrillation, currently in sinus rhythm Telemetry -Chronic pulmonary fibrosis especially at the bases with honeycombing -Schizoaffective disorder On Invega -Acute COPD exacerbation, and a smoker DuoNeb. Inhaled steroids -Chronic nicotine dependence, cigarette smoker Nicotine patch Continue IV ceftriaxone. Started on Cardizem drip. Consult psychiatry. Other medications to continue. Bicarbonate drip. Vimpat discontinued by psychiatry/neurology. Also to avoid Ativan. I spoke with the nurse about transferred to [facility]. Apparently no beds available at the present time. Prognosis guarded. Total time spent today was 1 hour with over 30 minutes of discussion
[2021-05-10 00:08] LABS: Glucose,Whole Blood 121 mg/dL (75-99)
[2021-05-10] MEDS: DILTIAZEM 125 MG in SODIUM CHLORIDE 0.9% 100 ML IV SCH (01:25)
[2021-05-10] MEDS: DEXTROSE 5% IN WATER 1,000 ML with SODIUM BICARB (1 MEQ/ML) 50 ML IV SCH (05:05)
[2021-05-10 05:35] LABS: Basophils % (A) 0 %; Eosinophils % (A) 1 %; HCT 29.7 % (34.0-46.0); HGB 9.7 gm/dL (11.4-16.0); Hypochromasia Slight; Lymphocytes # (A) 0.6 k/uL (1.0-4.8); Lymphocytes % (A) 13 %; MCH 33.8 pg (25.0-35.0); MCHC 32.7 g/dL (31.0-37.0); MCV 103.3 fL (80.0-100.0); Macrocytosis Slight; Mean Platelet Volume 7.6; Monocytes # (A) 0.3 k/uL (0-1.0); Monocytes % (A) 6 %; Neutrophils # (A) 3.6 k/uL (1.3-7.7); Neutrophils % (A) 76 %; RBC 2.88 m/uL (3.80-5.40); RDW 15.3 % (11.5-15.5); WBC 4.8 k/uL (3.8-10.6)
[2021-05-10 05:36] LABS: Platelet Count 83 k/uL (150-450)
[2021-05-10 06:05] LABS: Calcium 8.4 mg/dL (8.4-10.2); Potassium 3.1 mmol/L (3.5-5.1)
[2021-05-10 06:16] LABS: Glucose,Whole Blood 110 mg/dL (75-99)
[2021-05-10] MEDS: POTASSIUM CHLORIDE 10 MEQ in WATER FOR INJECTION 1 100ML.BAG IVPB SCH ×4 (06:36→11:42)
[2021-05-10] MEDS: NICOTINE 21MG/24HR PATCH TRANSDERM SCH (08:14)
[2021-05-10] MEDS: PANTOPRAZOLE 40 MG/10 ML VIAL IVP SCH (08:14)
[2021-05-10] MEDS: VALPROATE SODIUM 1,000 MG in SODIUM CHLORIDE 0.9% 50 ML IVPB SCH (08:15)
--- NOTE | 2021-05-10 08:38 | P.PN ---
Subjective Progress Note Date: 05/10/21 This is a 56-year-old here patient was hospitalized yesterday because of altered mental status, the patient was nonverbal and she was jerking and she was having Reiger's and high-grade fever and tachycardia. She was diagnosed having a UTI and this was a recurrent event. She initially she was admitted to the medical floor and following that the patient was transferred to the intensive care unit as the patient's mental status was quite low and the patient was having high- grade fever and questionable seizure activity. For that reason, the patient got transferred to the intensive care unit. The working diagnosis for now remains and recurrent urine checked infection. Mother the patient was in the hospital approximately a few months back and the patient had an E. coli UTI and sepsis. Suspect the same for now. On today's evaluation, the patient is more alert. She is following some simple commands although she is slow in answering questions or following commands at this point in time. No focal neurological deficit. No headaches. No neck stiffness. No focal neurological deficit. No clear evidence of any underlying seizure activity. EEG and MRI of the brain has already been ordered by neurology. Meanwhile, the patient is being treated with a combination of fluids and antibiotics. The patient received a total of 3 L of IV fluids and the patient is currently on a maintenance of 0.9 at 1:30 sees an hour the patient received 2 g of IV Rocephin. Cultures still pending for now. Her Espinoza catheter showed quite cloudy and abnormal urine output which is essentially clearing at this point in time. She also had a bout of atrial fibrillation with RVR yesterday and she was given a total of 150 mg of amiodarone and subsequently she converted to normal sinus rhythm. Note that she did the same during an earlier admission where she had A. fib. She converted to sinus rhythm. She was not placed on anticoagulation. Her echocardiogram was essentially within normal limits. The white cell count currently is at 7.8. Lactic acid level is down to 1.9 from 2.8. COVID-19 testing was negative. Rest of the electrolytes show an acute kidney injury with a creatinine of 3.16 and creatinine is improving down to 2.4. Sodium is at 139 with a bicarb level of 17 with a gap of 13. On 05/07/2021 patient seen in follow-up in intensive care unit, she is lethargic, she is slow to respond, she only provides yes or no responses occasionally, still very encephalopathic. She did receive 1 mg of Ativan yesterday for the MRI of the brain, she required 1 more dose of 1 mg Ativan in the 90s for possible episode of breakthrough seizure. CT of the brain on admission showed no acute intracranial abnormality, additional cerebral atrophy. MRI of the brain showed no evidence for recent infarct, he did show some nonspecific white matter changes possibly a product of chronic small vessel i schemic changes. EEG was completed yesterday showing the ground slowing suggestive of moderate to severe encephalopathy, there were no focal slowing or epileptiform discharges or seizure activity on the EEG. Patient was found to have E. coli in the blood culture, she currently remains on Rocephin 2 g every 24 hours. Zosyn has been discontinued, she is not requiring any vasopressors at the moment, she did require small dose of norepinephrine overnight. Hemodynamically stable, blood pressure is 112/66, slightly tachycardic in sinus mechanism with a rate of 106 BPM, low-grade fever this morning with a temp of 100.1F. Follow-up with culture showed gram-negative bacilli, fungal culture is pending. Urine culture is pending. Patient appears to be breathing comfortably, she is only requiring 2 L of oxygen a pulse ox of 95%, no cough, lung sounds are clear diminished at the bases, no rhonchi or wheezing on today's exam. Today's labs have been reviewed, white blood cell count is 8.5, he moglobin 10.4, sodium is 144, potassium is 4.0, chloride is 118, CO2 is 15, renal profile is improving, and BUN is down to 43, creatinine is 1.37. Her last plasma lactic acid from yesterday was 1.9. Espinoza catheter is in place and she is producing urine outputs in the order of 30-60 ML per hour. Renal ultrasound showed no evidence of hydronephrosis at this point, no nephrolithiasis was seen, no masses were identified. Lumbar puncture was attempted at the bedside, however there was a grossly bloody fluid returned, which clotted, and there was a suspicion that the needle was in the blood vessel. The fluid has been discarded, and anesthesia has been consulted for a repeat LP. CT of the brain without contrast will be repeated this morning. Otherwise clinically patient seems to be improving with the exception of continued confusion. She does have multiple psychiatric problems, her baseline mentation is unknown. Neurology is following, case was discussed with them. ID service is following. Hemodynamically she appears to be more stable, overall fever pattern has improved since admission. Renal profile has improved. Her Depakote dose has been adjusted as her Depakote level was subtherapeutic at 24.2. She is currently receiving IV Depakote 750 mg twice daily [facility]. On 05/08/2021 patient seen in follow-up in the intensive care unit, she still confused, slow to respond, she is only oriented to person. But appears to be in no acute distress, overnight she required on and off small dose of norepinephrine which is currently off again since 4:00 this morning. She is currently on D5 W with 1 amp of bicarbonate at 100 ML per hour. She is on 2 L of oxygen her pulse ox is 92-94%. Overall her fever pattern has improved since admission, and she only had low-grade fevers overnight, with a temp of 99.8F. She remains on Rocephin, urine culture was positive for E. coli, blood cultures were positive for E. coli as well, her most recent follow-up blood culture from 05/07/2021 has shown no growth, patient undergone LP yesterday with anesthesia, and CSF preliminary Gram stain showed no organisms. Glucose content in the CSF was 72, total protein was 48, appearance was clear and colorless, there were no RBCs or nucleated cells noted. Pro calcitonin level was 6.68. Her white count is improving, and is down to 6.2 on today's labs, hemoglobin is 9.9, platelet count is 91, sodium is 145, potassium 3.4, chloride is 116, CO2 is 18, renal profile is improving and BUN is down to 34 creatinine is 1.2. Chest x-ray shows bilateral pleural effusions with bibasilar infiltrates possibly related to fluid overload. Patient went into A. fib with RVR, and she was started on Cardizem infusion currently infusing at 5 mg per hour. The heart rate is better controlled. Remains on Depakote. Patient has no documented history of seizure disorder, she is on Depakote for a mood stabilizing effect. EEG showed no evidence of epileptiform discharges or seizure activity. CT of the brain showed age-related atrophic and chronic small vessel ischemic changes without acute intracranial process. On 05/09/2021 patient seen in follow-up in intensive care unit, she had an EEG yesterday with the suspicion of seizure activity there was an episode that was highly suspicious of a seizure and clinically patient had jerking of the right upper extremity in which episode lasted for 20 seconds. There was no evidence of epileptiform discharges. Patient was started on Vimpat, in her Decadron dose was adjusted to 1000 mg twice daily. Neurology is closely following, patient remains on Rocephin IV for urinary tract infection and E. coli bacteremia. Urine cultures have also showed E. coli. Hemodynamically she is more stable, she is not on any vasopressor support, she remains on D5 W with 1 amp of bicarb at 100 ML per hour. Yesterday she had an episode of A. fib with RVR she was started on Cardizem infusion which is still infusing at 5 mg per hour, she had since converted to sinus rhythm her rate is controlled. Her blood cultures have been reviewed, follow blood cultures have shown no growth, CSF culture remains negative. The patient is still very lethargic, encephalopathic, she is not verbalizing, seems to be more lethargic on today's exam, she did receive a dose of 1 mg of Ativan per neurology earlier today for a concern of a seizure, to a half hour EEG was ordered and is pending. From pulmonary perspective she is being comfortably, she is on 2 L of oxygen pulse ox of 95%, she is having some low-grade fevers, pressure is stable, not requiring any vasopressor support. His labs have been reviewed, her white blood cell count is 5.7, hemoglobin of 9.6, sodium is 144, potassium 3.3, chloride is 111, CO2 21, BUN is 24 creatinine is 1.03. Urinary catheter is in place, and patient is seen urine in the order of 90-100 ML per hour. He was able to take some oral nutrition with assistance. 05/10/2021, the patient is clinically unchanged. She remains quite unresponsive. She withdraws to painful stimulation. She mumbles. Nevertheless he doesn't follow any commands. She cannot hold a conversation. There was a suspicious for seizures and the patient has been covered with valproic acid. No witnessed seizure activity at least on clinical grounds. Neurology evaluated the patient underwent requesting a transfer for 24 hour EEG monitoring. Meanwhile, the last EEG that was on this patient on 05/08/2021 showed background slowing suggestive of moderate to severe encephalopathy. There was an also a episode of highly suspicious seizure activity that lasted for a total of 20 seconds. As such, the patient was kept on antiepileptic medication she is currently on her aggressive 1 g every 12 hours . Lumbar puncture was also done. The results of essentially nonsignificant. No microorganisms seen is and a CSF cultures still negative for now.. The CSF protein was 48. No RBCs, no nucleated cells.. The patient is currently on room air oxygen. She had E. coli septicemia and the patient remains on IV Rocephin. Afebrile. Hemodynamically stable. No signs of any respiratory distress. Her bicarb deficit has been re placed and the patient's serum bicarb is normalized and the patient will be normal saline. The serum bicarb today is at 25. Potassium is at 3.1 that needs to be replaced. Sodium is 142. The white cell count is at 4.8 with hemoglobin of 9.7. There has been a platelet drop down to 83. Meanwhile she is producing adequate amount of urine output. Terms of her episodes of atrial fibrillation, the patient's is still on a Cardizem drip at 5 mg an hour. She remains in atrial fibrillation for now. Heart rate is under better control at the rate of 100. She was on anticoagulation with Eliquis. I do not think she is going to be able to able to swallow the tablets based on his underlying mental status. She also underwent a psychiatric evaluation , her condition is not consistent with catatonia. Objective - Vital Signs Vital signs: Vital Signs Temp 99.4 F 05/10/21 04:00 Pulse 105 H 05/10/21 07:00 Resp 3 L 05/10/21 07:00 BP 106/52 05/10/21 07:00 Pulse Ox 100 05/10/21 07:00 Intake & Output 05/09/21 05/10/21 05/10/21 18:59 06:59 18:59 Intake Total 1840 1419 210 Output Total 1330 1780 125 Balance 510 -361 85 Weight 118.9 kg Intake: IV 1390 1310 210 Dextrose 5% in Water 1, 1240 1200 100 000 ml @ 100 mls/hr IV . [id number] NIESHA with Sodium Bicarb (1 Meq/ml) 50 ml Rx#:[id number] Lacosamide IV 200 mg In 50 Sodium Chloride 0.9% 50 ml @ 100 mls/hr IVPB ONCE STA Rx#:[id number] Potassium Chloride 10 meq 100 In Water For Injection 1 100ml.bag @ 100 mls/hr IVPB Q1HR NIESHA Rx#: [id number] Valproate Sodium 750 mg 50 In Sodium Chloride 0.9% 50 ml @ 50 mls/hr IVPB Q12HR NIES[facility] Rx#:[id number] cefTRIAXone 2 gm In 50 110 10 Sodium Chloride 0.9% 50 ml @ 100 mls/hr IVPB Q24HR [facility] Rx#:[id number] Intake, IV Titration 109 Amount Diltiazem 125 mg In 109 Sodium Chloride 0.9% 100 ml @ 5 MG/HR 5 mls/hr IV .Q24H [facility] Rx#:[id number] Oral 450 Output: Urine 1330 1780 125 Other: Voiding Method Indwelling Catheter Indwelling Catheter - Exam GENERAL EXAM: Drowsy, confused, 56-year-old obese white female, on RA of oxygen and pulse ox of 95%, slow to respond, only provides yes or no responses occasionally, comfortable in no apparent distress. HEAD: Normocephalic/atraumatic. EYES: Normal reaction of pupils, equal size. Conjunctiva pink, sclera white. NOSE: Clear with pink turbinates. THROAT: No erythema or exudates. NECK: No masses, no JVD, no thyroid enlargement, no adenopathy. CHEST: No chest wall deformity. Symmetrical expansion. LUNGS: Equal air entry with no crackles, wheeze, rhonchi or dullness. CVS: Irregular rate and rhythm, normal S1 and S2, no gallops, no murmurs, no rubs ABDOMEN: Soft, nontender. No hepatosplenomegaly, normal bowel sounds, no guarding or rigidity. EXTREMITIES: No clubbing, edema, no cyanosis, 2+ pulses and upper and lower extremities. MUSCULOSKELETAL: Muscle strength and tone normal. SPINE: No scoliosis or deformity SKIN: No rashes CENTRAL NERVOUS SYSTEM: Drowsy, awakens to verbal stimulation, oriented to 0. No focal deficits, tone is normal in all 4 extremities. The patient is withdrawing to painful stimulation over upper extremities. She opens her eyes to painful stimulation. Pupils are equal and reactive to light. No facial asymmetry. - Labs CBC & Chem 7: 05/10/21 03:59 05/10/21 03:59 Labs: Abnormal Lab Results - Last 24 Hours (Table) 05/09/21 05/09/21 05/10/21 Range/Units 11:30 18:05 00:06 RBC (3.80-5.40) m/uL Hgb (11.4-16.0) gm/dL Hct (34.0-46.0) % MCV (80.0-100.0) fL Plt Count (150-450) k/uL Lymphocytes # (1.0-4.8) k/uL Potassium (3.5-5.1) mmol/L Chloride (98-107) mmol/L POC Glucose (mg/dL) 110 H 106 H 121 H (75-99) mg/dL 05/10/21 05/10/21 05/10/21 Range/Units 03:59 03:59 06:15 RBC 2.88 L (3.80-5.40) m/uL Hgb 9.7 L (11.4-16.0) gm/dL Hct 29.7 L (34.0-46.0) % MCV 103.3 H (80.0-100.0) fL Plt Count 83 L (150-450) k/uL Lymphocytes # 0.6 L (1.0-4.8) k/uL Potassium 3.1 L (3.5-5.1) mmol/L Chloride 110 H (98-107) mmol/L POC Glucose (mg/dL) 110 H (75-99) mg/dL Microbiology - Last 24 Hours (Table) 05/07/21 05:05 Blood Culture - Preliminary Blood No Growth after 72 hours 05/07/21 11:00 CSF Gram Stain - Preliminary Cerebral Spinal Fluid CSF Culture - Preliminary Assessment and Plan Plan: #1. Altered mental status, likely secondary to sepsis induced metabolic encephalopathy/delirium. EEG initially showed no evidence of seizure. No focal neurological deficit. Subsequent EKG showed a questionable brief seizure activity and the patient is currently on valproic acid. She was taken off the Vimpat. Neuro workup is in progress. LP was performed on 05/07/2021, preliminary Gram stain showing no organisms, glucose level was 72, he was clear colorless CSF fluid. The CSF findings are essentially benign. She had a psychiatric evaluation. For now, neurologic functions are still unchanged. Unable to swallow. Unable to communicate. May need an NG tube for medication and enteral feeding. #2. UTI with sepsis most secondary to gram-negative bacteria. Urine cultures showed E. coli. Currently on IV Rocephin 2 g in addition to IV fluids. He received a total of 3 L of IV fluid. Hemodynamically stable on no pressors #3. E. coli bacteremia related to urinary tract infection, #4. Septic shock, recovered #5. Myoclonic jerks, rule out seizures. EEG showed moderate to severe encephalopathy, but no evidence of epileptiform discharges or seizure on initial evaluation, subsequent EEG showed suspicious 20sec episode of seizure-like activity, patient has been started on Depacote dose adjusted #6. Acute kidney injury, related to ATN, recovered #7. Paroxysmal atrial fibrillation current rhythm is sinus. The patient was given a bolus of amiodarone 150 mg 1 with good results #8. History of fall with left fib/tib Fracture, seen by orthopedic surgery during an earlier admission and the patient is currently being managed conservatively through a boot #9. Obesity with a BMI of 37.8 #10. History of smoking #11. History of schizoaffective disorder #12. A. fib with RVR, patient has been started on Cardizem infusion on 05/08/2021 rate controlled on a 5 mg of Cardizem drip an hour. Will be started on Eliquis for anticoagulation. Plan: Neurologically patient remains quite encephalopathic, and there is a ??? seizure most recent EEG Started on Depakote dose has been adjusted Neurologically, still encephalopathic, unable to swallow, we'll insert an NG tube for medication and enteral feeding. Vital signs have been stable she has had no fever She is off vasopressor support Patient is on room air oxygen Continues on Rocephin for E. coli urinary tract infection and E. coli bacteremia continue Eliquis for anticoagulation Cardizem infusion at 5 mg an hour for rate control Discontinue the bicarb drip Normal saline at the rate of Metabolically her leukocytosis continues to improve, renal profile has recovered Maintain aspiration precautions, Discussed case with neurology Possible transfer within the next 24 hours. We'll continue treatment here in the
[2021-05-10] MEDS: BUDESONIDE 1 MG/2 ML NEBU INHALATION SCH (08:48)
[2021-05-10] MEDS: IPRATROPIUM-ALBUTEROL 3 ML NEB INHALATION SCH ×3 (08:48→17:00)
[2021-05-10] MEDS ORDERED: SODIUM CHLORIDE 0.9% 1,000 ML IV SCH (09:00)
--- NOTE | 2021-05-10 11:26 | XR ---
EXAMINATION TYPE: XR chest 1V portable DATE OF EXAM: 05/10/2021 COMPARISON: Chest radiograph May 08, 2021 HISTORY: Post NG tube insertion TECHNIQUE: Single frontal view of the chest is obtained. FINDINGS: Gastric tube tip over the expected location of the gastric body with the sidehole distal a t the level of the GE junction. The cardiac silhouette size is within normal limits. The osseous structures are intact. Redemonstration of small bilateral effusions and bilateral reticular opacity. No pneumothorax. IMPRESSION: Small bilateral effusions with adjacent atelectasis/airspace disease.
[2021-05-10 11:33] LABS: Glucose,Whole Blood 78 mg/dL (75-99)
[2021-05-10] MEDS: PALIPERIDONE 3 MG TAB.ER.24 PO SCH (11:42)
[2021-05-10] MEDS: APIXABAN 5 MG TAB PO SCH (11:42)
[2021-05-10] MEDS: LEVOTHYROXINE 50 MCG TAB PO SCH (11:42)
--- NOTE | 2021-05-10 11:52 | P.PN ---
Subjective Progress Note Date: 05/10/21 The patient seen at bedside and per the patient's nurse she is a bit more awake today and localizing to pain other than that there is no seizure-like activity. Per nurse still waiting for bed for transfer for retirement EEG. Objective - Vital Signs Vital signs: Vital Signs Temp 99.4 F 05/10/21 04:00 Pulse 107 H 05/10/21 08:48 Resp 3 L 05/10/21 07:00 BP 106/52 05/10/21 07:00 Pulse Ox 100 05/10/21 07:00 Intake & Output 05/09/21 05/10/21 05/10/21 18:59 06:59 18:59 Intake Total 1840 1419 210 Output Total 1330 1780 125 Balance 510 -361 85 Weight 118.9 kg Intake: IV 1390 1310 210 Dextrose 5% in Water 1, 1240 1200 100 000 ml @ 100 mls/hr IV . [id number] NIESHA with Sodium Bicarb (1 Meq/ml) 50 ml Rx#:[id number] Lacosamide IV 200 mg In 50 Sodium Chloride 0.9% 50 ml @ 100 mls/hr IVPB ONCE STA Rx#:[id number] Potassium Chloride 10 meq 100 In Water For Injection 1 100ml.bag @ 100 mls/hr IVPB Q1HR NIESHA Rx#: [id number] Valproate Sodium 750 mg 50 In Sodium Chloride 0.9% 50 ml @ 50 mls/hr IVPB Q12HR NIESHA Rx#:[id number] cefTRIAXone 2 gm In 50 110 10 Sodium Chloride 0.9% 50 ml @ 100 mls/hr IVPB Q24HR [facility] Rx#:[id number] Intake, IV Titration 109 Amount Diltiazem 125 mg In 109 Sodium Chloride 0.9% 100 ml @ 5 MG/HR 5 mls/hr IV .Q24H NIESHA Rx#:[id number] Oral 450 Output: Urine 1330 1780 125 Other: Voiding Method Indwelling Catheter Indwelling Catheter - Exam GENERAL: The patient is morbid obese woman, lying in bed and does not seem in acute distress. NEUROLOGICAL: Higher mental function: The patient is drowsy but awakeable to voice. She stated her name one time but otherwise not responding or following commands. The patient says "ouch" to pain. Cranial nerves: The pupils are round, equal and reactive to light. Visual wright could not be assessed. No facial weakness. Hard to assess the rest of cranial nerves. Motor: The strength is hard to assess because of her condition. She grimaces face to pain but did not localize. Increase tone in uppers. Has tremors of uppers and not lower Cerebellum: Could not assess. Sensation: Could not assess. Reflexes (right/left): 2+ throughout. Plantars are mute bilaterally. WORK-UP: * MRI of brain is reported as no MRI evidence for recent infarct. Moderate diffuse cerebral atrophy greatest over bilateral frontal lobe somewhat prominent for patient chronologic age with the mild to moderate nonspecific white matter changes favored the product of chronic small vessel ischemic change. * Repeat CT of the head on 05/07/21 is reported as age-related atrophic and chronic small vessel ischemic change without acute intracranial process seen at this time. * CT of lumbar 05/07/21 was reported as suboptimal study but no acute finding are evident. In the body they reported it is reported that the patient has moderate broad disc bulge and mild to moderate facet arthropathy at L3-L4. There is a moderate to advanced facet arthropathy and ligamentum flavum hypertrophy with moderate broad disc bulge at L4-L5 and there is moderate facet arthropathy at L5-S1. * CSF study on 05/07/21: clear, colorless, 0 red blood cell, 0 nucleated cells, total protein is 48 (NORMAL), glucose 72 (borderline low high level. Normal is 40-70). CSF is negative for meningoencephalitis. * EEG on 05/06/2021 is abnormal routine EEG. The back was slowing suggestive of moderate to severe encephalopathy. There are no focal slowing, epileptiform discharges or seizure on the EEG. Clinical correlation is recommended * Routine EEG (05/08/21) and showed there is an episode that was highly suspicious for seizure lasting for 20 seconds, and the patient was having jerking of the right upper extremity. The back slowing suggestive of moderate to severe encephalopathy. There is no epileptiform discharges. * The blood cultures is positive for E.coli. Urine cultures: Gram neg bacilli. * Depakote level: 24.2 (subtherapeutic. Normal levels are between 50-120). Repeat Valproic acid on 05/08/21: 59 (is low normal). * Vitamin B12: 401 (normal). Folate: 8.0 (normal). TSH: 1.770 (normal). - Labs CBC & Chem 7: 05/10/21 03:59 05/10/21 03:59 Labs: Abnormal Lab Results - Last 24 Hours (Table) 05/09/21 05/10/21 05/10/21 Range/Units 18:05 00:06 03:59 RBC 2.88 L (3.80-5.40) m/uL Hgb 9.7 L (11.4-16.0) gm/dL Hct 29.7 L (34.0-46.0) % MCV 103.3 H (80.0-100.0) fL Plt Count 83 L (150-450) k/uL Lymphocytes # 0.6 L (1.0-4.8) k/uL Potassium (3.5-5.1) mmol/L Chloride (98-107) mmol/L POC Glucose (mg/dL) 106 H 121 H (75-99) mg/dL 05/10/21 05/10/21 Range/Units 03:59 06:15 RBC (3.80-5.40) m/uL Hgb (11.4-16.0) gm/dL Hct (34.0-46.0) % MCV (80.0-100.0) fL Plt Count (150-450) k/uL Lymphocytes # (1.0-4.8) k/uL Potassium 3.1 L (3.5-5.1) mmol/L Chloride 110 H (98-107) mmol/L POC Glucose (mg/dL) 110 H (75-99) mg/dL Microbiology - Last 24 Hours (Table) 05/07/21 05:05 Blood Culture - Preliminary Blood No Growth after 72 hours 05/07/21 11:00 CSF Gram Stain - Preliminary Cerebral Spinal Fluid CSF Culture - Preliminary Assessment and Plan Assessment: Altered mental status due to likely septic encephalopathy from acute urinary tract infection as well as component metabolic encephalopathy (acute kidney insuffiency) Highly suspicious of New onset seizure (seems provoked from underlying UTI i nfection) seen on EEG 05/08/2021 . Myoclonic jerks likely due to above--improving. Acute kidney insufficiency--resolved Acute on chronic urinary tract infection History of fall with left tibial/fibial fracture in 02/2021 History of Schizoaffective disorder Plan: * Continue Depakote 1000mg every 12 hours IV bid to 1gm ever 12 hours (was at home dose of 500mg 1 tab bid for mood stablizer and was increased it which help mood and has antiepileptic effect). * Patient is on ceftriaxone for her urinary tract infection will defer the management to the ICU as well as the primary team. * Infection disease team is on board. * Psychiatry does not feel patient has catatonia. * We'll defer the rest of the medical management to the primary as well as ICU team. * Recommend the patient to be transferred for escalation of care for long-term 24 hours EEGs with video. Plan was discussed with the patient ICU nurse. I attempted to contact the patient son (Zurdo) but number did not go thru and received voice massage of "no longer in service". Pending bed to be transferred to outside facility. John Laws MD Neuro-Hospitalist Time with Patient: Less than 30
[2021-05-10 12:02] VITALS: TEMP 98.5
[2021-05-10 12:06] LABS: Glucose,Whole Blood 86 mg/dL (75-99)
--- NOTE | 2021-05-10 14:59 | PN ---
PROGRESS NOTE DATE OF SERVICE: 05/10/2021 REASON FOR FOLLOWUP: E coli UTI and bacteremia. INTERVAL HISTORY: The patient is currently afebrile. The patient is hemodynamically stable. She is breathing comfortably on room air. The patient remains lethargic and unable to provide any history. No vomiting, diarrhea or other changes reported by the nursing staff. PHYSICAL EXAMINATION: Blood pressure 113/66, pulse of 102, temperature 98.5. She is 97% on room air. GENERAL DESCRIPTION: General description is a middle-aged female up in the bed in no distress. RESPIRATORY SYSTEM: Unlabored breathing. Clear to auscultation anteriorly. HEART: S1, S2. Regular rate and rhythm. ABDOMEN: Soft. No tenderness. LABS: Hemoglobin is 9.0, white count 4.8, BUN of 17, creatinine 0.93. culture negative. Repeat blood culture has been negative. DIAGNOSTIC IMPRESSION AND PLAN: Patient with Escherichia coli urinary tract infection and bacteremia, for which the patient is currently covered with Rocephin; to continue while monitoring her clinical course closely. Continue supportive care. MMODL / IJN: [id number] /
[2021-05-10 17:15] VITALS: PULSE 90
[2021-05-10 17:36] VITALS: BP 102/52; RESP 18
--- NOTE | 2021-05-10 20:51 | P.DS ---
Providers Date of admission: 05/05/21 20:28 Expected date of discharge: 05/10/21 Attending physician: Perry Rock Consults: 05/05/21 20:28 Consult Physician Routine Consulting Provider: Nabil Ibarra Consult Reason/Comments: UTI with sepsis Do you want consulting provider notified?: Yes 05/05/21 22:43 Consult Physician Routine Consulting Provider: John Laws Consult Reason/Comments: nonverbal/ jerking motions Do you want consulting provider notified?: Yes, Notify in am 05/06/21 05:05 Consult Physician Routine Consulting Provider: Keo Mcintosh Consult Reason/Comments: ICU management Do you want consulting provider notified?: Already Contacted 05/06/21 11:43 anesthesia [Consult to Anesthesia] Stat Consulting Provider: Anesthesia,Services Consult Reason/Comments: lumbar pucnture 05/08/21 14:14 Consult Physician Routine Consulting Provider: Markie Saini Consult Reason/Comments: Query catatonia/antipsychotics Do you want consulting provider notified?: Yes Primary care physician: [facility] Course: Chief Complaint: Altered mentation History of presenting complaint: This is a 56-year-old patient, presented to ER yesterday evening with altered mental status. Came in with the EMS with fever and tachycardia. Symptoms had been going for about 24 hours. Patient was not verbalizing anything in the ER. Per the EMS report: Family stated that patient had become confused for 2 days. Has stopped talking yesterday. Had not eaten or drank anything for last refill Ross. He also noticed that patient was breathing heavy was hypoxic and tachycardic. Upon getting admitted to the floor overnight patient been having fevers. Ice packs were ordered. Patient is tachycardic. Lethargic. Patient already received 1 dose of ceftriaxone in the ER. An early in the night is started on IV Zosyn. A team was called and patient smoked in ICU. Patient remains less responsive. Only to tactile stimuli she will move a bit.. Not answering questions. Eyes close. Consultations were placed to poultry slaughterer, neurology, ID. Patient does live with his son and girlfriend who takes care of the patient. Admitted with UTI from cystitis with sepsis, bilateral pneumonia, septic shock, acute kidney injury with ATN.IV fluids. IV ceftriaxone. Admitted to the ICU. May 07: Bit awake. Answering occasional questions. Following simple commands. MRI and EEG of the brain was negative. Earlier today lumbar puncture was attempted. Urine culture and blood culture showing gram-negative bacilli/E. coli May 08: ICU: She had more awake. Will answer occasionally. Eating little. Went into A. fib this afternoon. Cardiology consulted. Getting a repeat EEG. Remains afebrile. Psychiatry being consulted May 09: ICU: Patient with having some jerking movements. Initial EEG was negative. Repeat EEG showed some questionable seizure activity. Earlier today Dr. Blackman from neurology has asked for the patient to be transferred to [facility] in [place] for continuous EEG monitoring. We do not have the facility for the same. In the meantime I spoke to Dr. Saini from psychiatry. He did evaluate the patient. Did not feel there was any catatonia. Patient did receive Ativan this afternoon. Patient less responsive today. Care was discussed with Dr. Mcintosh and fit Dr. Blackman from neurology. Patient converted to sinus rhythm. Sinus tachycardia May 10: ICU: NG tube was placed for medications. Patient getting IV Depakote both for mood stabilizer and for antiseizure effect. Earlier today I received a call from from Dr. Garza/internal medicine from in [place]. Case was discussed with her. She accepted the patient. Remains in A. fib. Cardizem at 5 g. Discussed with nurse. Discussion and discharge planning more than 35 minutes Consultation: Dr. Laws from neurology Dr. Mcintosh and partners from poultry slaughterer Dr. Saini from psychiatry Dr. Ibarra from [place] Past medical history to include: Atrial fibrillation, bibasilar fibrotic lung changes with honeycombing, schizoaffective disorder, nicotine use, in February of this year patient did have a left tibial plate to and left proximal fibular fracture Social history: Patient lives with her son and girlfriend, or take care of her. Smoker. Marijuana use history of Family history: Could not be obtained. Physical examination: VITAL SIGNS: 98.5, 1 or 2, 14, 116/67, 94% room air GENERAL: Laying in bed, lethargic EYES: Pupils equal. Conjunctiva normal. HEENT: External appearance of nose and ears normal, oral cavity mucous membranes. NG tube NECK: JVD unable to assess; masses not palpable. HEART: First and second heart sounds are normal; no edema. LUNGS: Respiratory rate increased; decreased breath sounds. ABDOMEN: Soft, nontender, liver spleen not palpable, no masses palpable. PSYCH: Unable to assess NEUROLOGICAL: Cranial nerves grossly intact; no facial asymmetry, was noted to have jerking movements and ear INVESTIGATIONS, reviewed in the clinical context: May 10: WBC 4.8 hemoglobin 9.7 platelets 73 potassium 3.1 creatinine 0.9 May 09: WBC 5.7 hemoglobin 9.6 platelets 70 potassium 3.3 creatinine 1.03 EEG [May 08] finding suggestive of moderate to severe encephalopathy. Episode of highly suspicious for seizure activity. No epileptiform activity noted May 08: WBC 6.2 hemoglobin 9.9 platelets 91 potassium 3.4 bicarb 18 BUN 34 creatinine 1.20 May 07: WBC 8.5 hemoglobin 10.4 platelets 111, bicarb 15 BUN 43 creatinine 1.37 Blood culture from May 05: E. coli. Repeat blood culture from May 07: Negative Urine culture from May 05: E. coli CSF: Nucleated cells 0 glucose [address] brain [May 07]: Negative MRI brain: Nothing acute EEG: Not showing any epileptiform activity. Encephalopathy WBC 7.8 hemoglobin 12.1 platelets 105 potassium 5 bicarb 17 BUN 46 creatinine 2.4 to Admission labs: Potassium 4.4 BUN 45 creatinine 3.16 bilirubin 1.5 AST 40 ALT 25 albumin 3.1 UA positive for leukoesterase, WBC Coronavirus [BCR] not detected EKG tracing personally reviewed by me: Normal sinus rhythm. Heart rate 128 Chest x-ray film personally reviewed by me-bibasal infiltrates CT brain: Cerebral atrophy. Previous testing: CT chest and U for PE [02/24/2021] chronic parenchymal fibrotic changes greatest in the bases. With honeycombing. It is of groundglass opacities. 2-D echocardiogram: EF 55 have a 60%. [id number] tricuspid regurgitation. Some element of pulmonary hypertension Assessment and plan: -Acute/metabolic/toxic encephalopathy. Patient has no focal findings.: Slow to respond Catatonic state ruled out by psychiatry. Possible seizures. -Possible seizure activity per neurology IV valproic acid. Patient getting transferred to [facility] in [place], for continuous EEG monitoring -Acute UTI from cystitis with sepsis. Patient recently has had UTI and Espinoza catheter was removed. E. coli in both urine and blood culture IV ceftriaxone. Repeat blood cultures negative from May 07 -Possible bilateral pneumonia, suspect gram-negative organism IV ceftriaxone -Septic shock: Better IV fluids -Acute kidney injury, likely from ATN from sepsis: Improving Admission creatinine 3.16 Follow renal functions. IV fluids. Today creatinine 1.20 -Metabolic and lactic acidosis from renal failure/sepsis bicarbonate drip continue -Persistent atrial fibrillation, rate controlled Telemetry. IV Cardizem -Chronic pulmonary fibrosis especially at the bases with honeycombing -Schizoaffective disorder On Invega -Acute COPD exacerbation, and a smoker DuoNeb. Inhaled steroids -Chronic nicotine dependence, cigarette smoker Nicotine patch Disposition: Transferred to [facility] for higher level of care Plan - Discharge Summary Discharge Rx Participant: Yes New Discharge Prescriptions: No Action DULoxetine HCL [Cymbalta] 30 mg PO DAILY 30 Days capsule. Levothyroxine Sodium [Synthroid] 50 mcg PO DAILY@0630 tab Albuterol Inhaler [Ventolin Hfa Inhaler] 2 puff INHALATION RT-Q4H PRN PRN Reason: Shortness Of Breath Or Wheezing Divalproex ER [Depakote ER] 500 mg PO BID Paliperidone [Invega] 6 mg PO HS Aspirin 81 mg PO DAILY #30 chew Oxybutynin Chloride [Ditropan] 5 mg PO BID Paliperidone [Invega] 3 mg PO DAILY Discharge Medication List DULoxetine HCL [Cymbalta] 30 mg PO DAILY 30 Days capsule. 08/13/20 [Rx] Levothyroxine Sodium [Synthroid] 50 mcg PO DAILY@0630 tab 08/13/20 [Rx] Albuterol Inhaler [Ventolin Hfa Inhaler] 2 puff INHALATION RT-Q4H PRN 02/21/21 [History] Divalproex ER [Depakote ER] 500 mg PO BID 02/21/21 [History] Oxybutynin Chloride [Ditropan] 5 mg PO BID 02/21/21 [History] Paliperidone [Invega] 3 mg PO DAILY 02/21/21 [History] Paliperidone [Invega] 6 mg PO HS 02/21/21 [History] Aspirin 81 mg PO DAILY #30 chew 02/25/21 [Rx] Follow up Appointment(s)/Referral(s): Markie Beltrán DO [Primary Care Provider] - 1-2 days Discharge Disposition: OTHER INSTITUTION NOT DEFINED
== END 2021-05-10 18:18 | disposition other institution (70) | DRG 871 ==
LOC: EC 19:20 → 3SCARD 20:28 → 2SICU 05-06 03:54 → UNDODISIN 05-10 02:10
PROVIDERS: ADMIT Hospitalist; ATTEND Hospitalist
PROC: 5A1935Z Respiratory Ventilation, Less than 24 Consecutive Hours (ICD-10-PCS; principal; 2021-05-06)
PROC: 0BH17EZ Insertion of Endotracheal Airway into Trachea, Via Natural or Artificial Opening (ICD-10-PCS; 2021-05-06)
PROC: 009U3ZX Drainage of Spinal Canal, Percutaneous Approach, Diagnostic (ICD-10-PCS; 2021-05-07)
DX: A41.51 Sepsis due to Escherichia coli [E. coli] (principal); G92 Toxic encephalopathy; N17.0 Acute kidney failure with tubular necrosis; R65.21 Severe sepsis with septic shock; J15.6 Pneumonia due to other Gram-negative bacteria; J96.01 Acute respiratory failure with hypoxia; E87.2 Acidosis; F05 Delirium due to known physiological condition; I48.19 Other persistent atrial fibrillation; J44.0 Chronic obstructive pulmonary disease with (acute) lower respiratory infection; J44.1 Chronic obstructive pulmonary disease with (acute) exacerbation; N12 Tubulo-interstitial nephritis, not specified as acute or chronic; G93.49 Other encephalopathy; E87.70 Fluid overload, unspecified; Z20.822 Contact with and (suspected) exposure to COVID-19; E86.0 Dehydration; E66.01 Morbid (severe) obesity due to excess calories; I27.20 Pulmonary hypertension, unspecified; F17.210 Nicotine dependence, cigarettes, uncomplicated; F12.90 Cannabis use, unspecified, uncomplicated; F25.9 Schizoaffective disorder, unspecified; G25.3 Myoclonus; I10 Essential (primary) hypertension; J84.10 Pulmonary fibrosis, unspecified; N30.90 Cystitis, unspecified without hematuria; R56.9 Unspecified convulsions; Z68.37 Body mass index [BMI] 37.0-37.9, adult; Z95.2 Presence of prosthetic heart valve; Z90.721 Acquired absence of ovaries, unilateral; Z88.6 Allergy status to analgesic agent; Z88.5 Allergy status to narcotic agent; Z79.899 Other long term (current) drug therapy; Z79.890 Hormone replacement therapy; Z79.82 Long term (current) use of aspirin; Z87.440 Personal history of urinary (tract) infections; W19.XXXA Unspecified fall, initial encounter
CPT/HCPCS: 36410; 36415; 36600; 70450; 70551; 71045; 72131; 76770; 76937; 80048; 80053; 80164; 80165; 81001; 82140; 82607; 82746; 82747; 82805; 82945; 83605; 83873; 84132; 84145; 84157; 84443; 85025; 85610; 85730; 87040; 87070; 87077; 87086; 87186; 87205; 87635; 89050; 93005; 94640; 95816; 96365; 99291

== ENCOUNTER 2021-06-16 01:29 | Inpatient (IN) | payer BC ==
[2021-06-16 01:36] LABS: Glucose,Whole Blood 182 mg/dL (75-99)
[2021-06-16] MEDS ORDERED: SUCCINYLCHOLINE CHLORIDE VIAL 200 MG/10 ML VIAL IV STA (01:45)
[2021-06-16] MEDS ORDERED: MIDAZOLAM 1 MG/ML 5 ML VIAL IV STA ×4 (01:45→06:29)
--- NOTE | 2021-06-16 01:53 | ED ---
Altered Mental Status HPI - General Chief Complaint: Shortness of Breath Stated Complaint: Unresponsive Time Seen by Provider: 06/16/21 01:35 Source: EMS, RN notes reviewed, old records reviewed, Caregiver Mode of arrival: EMS Limitations: no limitations, altered mental status, physical limitation - History of Present Illness Initial Comments: This is a 56-year-old female who presents in unresponsive state severe distress secondary to both with breathing oxygen level responsiveness, patient has significantly elevated heart rate with low blood pressure. Patient unable to provide history, unresponsive per EMS, history provided by staff and transfer paperwork MD Complaint: altered mental status, confusion, decreased responsiveness, weakness -: days(s) Severity: moderate Consistency of Symptoms: waxing and waning, getting worse Context: alcohol abuse, history of similar presentation, liver disease Associated Symptoms: denies other symptoms, nausea/vomiting, weakness - Related Data Home Medications Medication Instructions Recorded Confirmed Albuterol Inhaler [Ventolin Hfa 2 puff INHALATION RT-Q4H PRN 02/21/21 06/16/21 Inhaler] Donepezil [Aricept] 5 mg PO DAILY 06/16/21 06/16/21 Folic Acid 1 mg PO DAILY 06/16/21 06/16/21 Heparin Sodium,Porcine [Heparin 5,000 unit SQ Q8HR 06/16/21 06/16/21 Sodium] Ibuprofen [Motrin Ib] 200 mg PO Q6H PRN 06/16/21 06/16/21 Levothyroxine Sodium [Synthroid] 50 mcg PO DAILY@0500 06/16/21 06/16/21 Melatonin 3 mg PO HS PRN 06/16/21 06/16/21 Pantoprazole [Protonix] 40 mg PO TID 06/16/21 06/16/21 Potassium Chloride [Klor-Con 20] 40 meq PO DAILY 06/16/21 06/16/21 Previous Rx's Medication Instructions Recorded DULoxetine HCL [Cymbalta] 30 mg PO DAILY 30 Days capsule. 08/13/20 Aspirin 81 mg PO DAILY #30 chew 02/25/21 Allergies Allergy/AdvReac Type Severity Reaction Status Date / Time acetaminophen [From Vicodin] Allergy Rash/Hives Verified 06/16/21 07:27 hydrocodone [From Vicodin] Allergy Rash/Hives Verified 06/16/21 07:27 Review of Systems ROS Statement: Those systems with pertinent positive or pertinent negative responses have been documented in the HPI. ROS Other: All systems not noted in ROS Statement are negative. Past Medical History Past Medical History: No Reported History Additional Past Medical History / Comment(s): UTI, Left tibial fx, History of Any Multi-Drug Resistant Organisms: None Reported Past Surgical History: Cardiac Valve Replacement Additional Past Surgical History / Comment(s): left ovary removed Past Anesthesia/Blood Transfusion Reactions: No Reported Reaction Past Psychological History: Schizoaffective Disorder, Schizophrenia Smoking Status: Current every day smoker Past Alcohol Use History: None Reported Past Drug Use History: None Reported - Past Family History Mother History Unknown: Yes Father History Unknown: Yes General Exam Limitations: altered mental status, physical limitation General appearance: anxious, lethargic, obtunded, in distress Head exam: Present: atraumatic, normocephalic, normal inspection Eye exam: Present: normal appearance, PERRL, EOMI. Absent: scleral icterus, conjunctival injection, periorbital swelling ENT exam: Present: normal exam, mucous membranes dry Neck exam: Present: normal inspection. Absent: tenderness, meningismus, lymphadenopathy Respiratory exam: Present: respiratory distress, wheezes, rhonchi, stridor, accessory muscle use, decreased breath sounds, prolonged expiratory. Absent: rales Cardiovascular Exam: Present: tachycardia, irregular rhythm GI/Abdominal exam: Present: soft, normal bowel sounds. Absent: distended, tenderness, guarding, rebound, rigid Extremities exam: Present: normal inspection, full ROM, normal capillary refill. Absent: tenderness, pedal edema, joint swelling, calf tenderness Back exam: Present: normal inspection Neurological exam: Present: alert, oriented X3, CN II-XII intact Psychiatric exam: Present: normal affect, normal mood Skin exam: Present: warm, dry, intact, normal color. Absent: rash Course Vital Signs 06/16/21 06/16/21 06/16/21 01:30 02:01 03:00 Temperature 102.2 F H 103.4 F H Pulse Rate 153 H 151 H 154 H Respiratory 28 H 20 24 Rate Blood Pressure 64/38 106/42 73/61 O2 Sat by Pulse 89 L 100 10 L Oximetry 06/16/21 06/16/21 06/16/21 04:01 05:20 06:02 Temperature 102.9 F H Pulse Rate 155 H 179 H 197 H Respiratory 24 24 22 Rate Blood Pressure 99/51 80/50 104/82 O2 Sat by Pulse 99 98 99 Oximetry 06/16/21 06/16/21 06/16/21 06:37 07:46 07:53 Temperature 103 F H Pulse Rate 110 H 110 H Respiratory 22 Rate Blood Pressure 106/38 84/41 O2 Sat by Pulse 98 Oximetry - Reevaluation(s) Reevaluation #1: 06/16/21 Medical record is reviewed Patient is intubated secondary to obtundation and hypoxia as well as has central line placed on arrival to emergency department Reevaluation #2: 06/16/21 Patient significant A. fib with RVR hypotension, cardiogenic shock possibly septic shock, heart rate elevates more witht levophed Reevaluation #3: 06/16/21 Patient currently showing improvement in heart rate and blood pressure, requiring sedation for mental status - Consultations Consultation #1: Spoke with on-call intensive care and were okay for admission Procedures - Central Line Placement Right IJ Consent Obtained: verbal consent Patient Placed on Monitor/Pulse Ox: Yes MD Prep: mask, gown, gloves Central Line Prep: Povidone-Iodine 1% Local Anesthesia Used: Lidocaine 1% Ultrasound Used for Placement: Yes Central Line Lumen Inserted: triple Bloods Obtained for Lab: Yes Central Line Position: good blood return, all ports aspirated, flushed, capped, sutured in place with 3-0 nylon Dressing Applied: Tegaderm Post Procedure X-Ray: tip of catheter in good position Patient Tolerated Procedure: well Complications: none - Intubation Sedative: Versed Paralytic: Succinylcholine Laryngoscope: Kyleigh Size: 4 ET Tube Size: 7.5 ET Tube Uncuffed: No Tube Secured Location: teeth Tube Placement Confirmation: visualized tube passing through cords, equal breath sounds bilaterally, no breath sounds over epigastrium, confirmation by capnometry Patient Tolerated Procedure: well Intubation Complications: none - Sepsis Sepsis Focused Exam #1 Time Sepsis Criteria Met: 03:34 Sepsis Focused Exam Date: 06/16/21 Sepsis Focused Exam Time: 06:00 Sepsis Focused Exam Complete: Yes Vital Signs & RN Notes Reviewed: Yes Capillary Refill: < 2 Seconds: Fingers, Toes Peripheral Pulses: Normal: Radial (R), Radial (L), Posterior Tibialis (R), Posterior Tibialis (L), Dorsalis Pedis (R), Dorsalis Pedis (L) Skin Color: Flushed, Ashen Respiratory Exam: respiratory distress, wheezes, rales, rhonchi Cardiovascular Exam: tachycardia, irregular rhythm Medical Decision Making - Medical Decision Making 56 female thought to be in septic shock with fevers, likely component of cardiogenic shock with atrial fibrillation and RVR and elevated troponin. Patie nt has significant pulmonary edema and x-ray, could be developing ARDS on top of pneumonia. History of urinary tract infections is negative now. Patient be placed on broad-spectrum antibiotics or possibility of pneumonia versus bacteremia as well - Lab Data Result diagrams: 06/16/21 01:54 06/16/21 15:00 Lab Results 06/16/21 06/16/21 06/16/21 Range/Units 01:35 01:54 01:54 WBC (3.8-10.6) k/uL RBC (3.80-5.40) m/uL Hgb (11.4-16.0) gm/dL Hct (34.0-46.0) % MCV (80.0-100.0) fL MCH (25.0-35.0) pg MCHC (31.0-37.0) g/dL RDW (11.5-15.5) % Plt Count (150-450) k/uL MPV Neutrophils % % Lymphocytes % % Monocytes % % Eosinophils % % Basophils % % Neutrophils # (1.3-7.7) k/uL Lymphocytes # (1.0-4.8) k/uL Monocytes # (0-1.0) k/uL Eosinophils # (0-0.7) k/uL Basophils # (0-0.2) k/uL Manual Slide Review Polychromasia Poikilocytosis Poikilocytosis (manual Anisocytosis Macrocytosis PT (9.0-12.0) sec INR (<1.2) APTT (22.0-30.0) sec Sample Site ABG pH (7.35-7.45) ABG pCO2 (35-45) mmHg ABG pO2 (83-108) mmHg ABG HCO3 (21-25) mmol/L ABG Total CO2 (19-24) mmol/L ABG O2 Saturation (94-97) % ABG Base Excess mmol/L Miller Test FiO2 % Sodium 154 H (137-145) mmol/L Potassium 5.7 H (3.5-5.1) mmol/L Chloride 117 H (98-107) mmol/L Carbon Dioxide 18 L (22-30) mmol/L Anion Gap 19 mmol/L BUN 83 H (7-17) mg/dL Creatinine 3.65 H (0.52-1.04) mg/dL Est GFR (CKD-EPI)AfAm 15 (>60 ml/min/1.73 sqM) Est GFR (CKD-EPI)NonAf 13 (>60 ml/min/1.73 sqM) Glucose 206 H (74-99) mg/dL POC Glucose (mg/dL) 182 H (75-99) mg/dL POC Glu Manager Rfid ID Satnam Saraviata Lactic Ac Sepsis Rflx Plasma Lactic Acid Grant (0.7-2.0) mmol/L Calcium 10.8 H (8.4-10.2) mg/dL Total Bilirubin 1.0 (0.2-1.3) mg/dL AST 238 H (14-36) U/L ALT 128 H (4-34) U/L Alkaline Phosphatase 87 (38-126) U/L CK-MB (CK-2) (0.0-2.4) ng/mL Troponin I (0.000-0.034) ng/mL C-Reactive Protein 1.0 H (<1.0) mg/dL Total Protein 9.9 H (6.3-8.2) g/dL Albumin 4.5 (3.5-5.0) g/dL Coronavirus (PCR) Not Detected (Not Detectd) 06/16/21 06/16/21 06/16/21 Range/Units 01:54 01:54 01:54 WBC 18.4 H (3.8-10.6) k/uL RBC 4.14 (3.80-5.40) m/uL Hgb 14.2 D (11.4-16.0) gm/dL Hct 43.4 (34.0-46.0) % MCV 104.9 H (80.0-100.0) fL MCH 34.4 (25.0-35.0) pg MCHC 32.8 (31.0-37.0) g/dL RDW 17.7 H (11.5-15.5) % Plt Count 399 D (150-450) k/uL MPV 8.4 Neutrophils % 85 % Lymphocytes % 10 % Monocytes % 4 % Eosinophils % 0 % Basophils % 1 % Neutrophils # 15.5 H (1.3-7.7) k/uL Lymphocytes # 1.8 (1.0-4.8) k/uL Monocytes # 0.7 (0-1.0) k/uL Eosinophils # 0.0 (0-0.7) k/uL Basophils # 0.1 (0-0.2) k/uL Manual Slide Review Performed Polychromasia Present Poikilocytosis Slight Poikilocytosis (manual Present Anisocytosis Slight Macrocytosis Marked A PT 16.9 H (9.0-12.0) sec INR 1.7 H (<1.2) APTT 22.6 (22.0-30.0) sec Sample Site ABG pH (7.35-7.45) ABG pCO2 (35-45) mmHg ABG pO2 (83-108) mmHg ABG HCO3 (21-25) mmol/L ABG Total CO2 (19-24) mmol/L ABG O2 Saturation (94-97) % ABG Base Excess mmol/L Miller Test FiO2 % Sodium (137-145) mmol/L Potassium (3.5-5.1) mmol/L Chloride (98-107) mmol/L Carbon Dioxide (22-30) mmol/L Anion Gap mmol/L BUN (7-17) mg/dL Creatinine (0.52-1.04) mg/dL Est GFR (CKD-EPI)AfAm (>60 ml/min/1.73 sqM) Est GFR (CKD-EPI)NonAf (>60 ml/min/1.73 sqM) Glucose (74-99) mg/dL POC Glucose (mg/dL) (75-99) mg/dL POC Glu Manager Rfid ID Lactic Ac Sepsis Rflx Plasma Lactic Acid Grant 5.0 H* (0.7-2.0) mmol/L Calcium (8.4-10.2) mg/dL Total Bilirubin (0.2-1.3) mg/dL AST (14-36) U/L ALT (4-34) U/L Alkaline Phosphatase (38-126) U/L CK-MB (CK-2) (0.0-2.4) ng/mL Troponin I (0.000-0.034) ng/mL C-Reactive Protein (<1.0) mg/dL Total Protein (6.3-8.2) g/dL Albumin (3.5-5.0) g/dL Coronavirus (PCR) (Not Detectd) 06/16/21 06/16/21 06/16/21 Range/Units 01:54 03:04 03:22 WBC (3.8-10.6) k/uL RBC (3.80-5.40) m/uL Hgb (11.4-16.0) gm/dL Hct (34.0-46.0) % MCV (80.0-100.0) fL MCH (25.0-35.0) pg MCHC (31.0-37.0) g/dL RDW (11.5-15.5) % Plt Count (150-450) k/uL MPV Neutrophils % % Lymphocytes % % Monocytes % % Eosinophils % % Basophils % % Neutrophils # (1.3-7.7) k/uL Lymphocytes # (1.0-4.8) k/uL Monocytes # (0-1.0) k/uL Eosinophils # (0-0.7) k/uL Basophils # (0-0.2) k/uL Manual Slide Review Polychromasia Poikilocytosis Poikilocytosis (manual Anisocytosis Macrocytosis PT (9.0-12.0) sec INR (<1.2) APTT (22.0-30.0) sec Sample Site rbrac ABG pH 7.33 L (7.35-7.45) ABG pCO2 33 L (35-45) mmHg ABG pO2 146 H (83-108) mmHg ABG HCO3 17 L (21-25) mmol/L ABG Total CO2 18 L (19-24) mmol/L ABG O2 Saturation 99.5 H (94-97) % ABG Base Excess -8.5 mmol/L Miller Test Yes FiO2 100 % Sodium (137-145) mmol/L Potassium (3.5-5.1) mmol/L Chloride (98-107) mmol/L Carbon Dioxide (22-30) mmol/L Anion Gap mmol/L BUN (7-17) mg/dL Creatinine (0.52-1.04) mg/dL Est GFR (CKD-EPI)AfAm (>60 ml/min/1.73 sqM) Est GFR (CKD-EPI)NonAf (>60 ml/min/1.73 sqM) Glucose (74-99) mg/dL POC Glucose (mg/dL) (75-99) mg/dL POC Glu Manager Rfid ID Lactic Ac Sepsis Rflx Y Plasma Lactic Acid Grant (0.7-2.0) mmol/L Calcium (8.4-10.2) mg/dL Total Bilirubin (0.2-1.3) mg/dL AST (14-36) U/L ALT (4-34) U/L Alkaline Phosphatase (38-126) U/L CK-MB (CK-2) <0.2 (0.0-2.4) ng/mL Troponin I 0.148 H* (0.000-0.034) ng/mL C-Reactive Protein (<1.0) mg/dL Total Protein (6.3-8.2) g/dL Albumin (3.5-5.0) g/dL Coronavirus (PCR) (Not Detectd) 06/16/21 Range/Units 03:29 WBC (3.8-10.6) k/uL RBC (3.80-5.40) m/uL Hgb (11.4-16.0) gm/dL Hct (34.0-46.0) % MCV (80.0-100.0) fL MCH (25.0-35.0) pg MCHC (31.0-37.0) g/dL RDW (11.5-15.5) % Plt Count (150-450) k/uL MPV Neutrophils % % Lymphocytes % % Monocytes % % Eosinophils % % Basophils % % Neutrophils # (1.3-7.7) k/uL Lymphocytes # (1.0-4.8) k/uL Monocytes # (0-1.0) k/uL Eosinophils # (0-0.7) k/uL Basophils # (0-0.2) k/uL Manual Slide Review Polychromasia Poikilocytosis Poikilocytosis (manual Anisocytosis Macrocytosis PT (9.0-12.0) sec INR (<1.2) APTT (22.0-30.0) sec Sample Site ABG pH (7.35-7.45) ABG pCO2 (35-45) mmHg ABG pO2 (83-108) mmHg ABG HCO3 (21-25) mmol/L ABG Total CO2 (19-24) mmol/L ABG O2 Saturation (94-97) % ABG Base Excess mmol/L Miller Test FiO2 % Sodium (137-145) mmol/L Potassium (3.5-5.1) mmol/L Chloride (98-107) mmol/L Carbon Dioxide (22-30) mmol/L Anion Gap mmol/L BUN (7-17) mg/dL Creatinine (0.52-1.04) mg/dL Est GFR (CKD-EPI)AfAm (>60 ml/min/1.73 sqM) Est GFR (CKD-EPI)NonAf (>60 ml/min/1.73 sqM) Glucose (74-99) mg/dL POC Glucose (mg/dL) (75-99) mg/dL POC Glu Manager Rfid ID Lactic Ac Sepsis Rflx Plasma Lactic Acid Grant (0.7-2.0) mmol/L Calcium (8.4-10.2) mg/dL Total Bilirubin (0.2-1.3) mg/dL AST (14-36) U/L ALT (4-34) U/L Alkaline Phosphatase (38-126) U/L CK-MB (CK-2) (0.0-2.4) ng/mL Troponin I 0.423 H* (0.000-0.034) ng/mL C-Reactive Protein (<1.0) mg/dL Total Protein (6.3-8.2) g/dL Albumin (3.5-5.0) g/dL Coronavirus (PCR) (Not Detectd) - EKG Data -: EKG Interpreted by Me (EKG is atrial flutter 161 QRS 64 QTC 373) - Radiology Data Radiology results: report reviewed (Chest x-ray does show significant pulmonary edema), image reviewed Critical Care Time Critical Care Time: Yes Total Critical Care Time: 31 Disposition Clinical Impression: Dehydration, Sepsis, Weakness, UTI (urinary tract infection), Elevated troponin, Delirium due to general medical condition, Atrial fibrillation with RVR, Acute kidney injury, Acute pulmonary edema, Fever Disposition: ADMITTED IP TO THIS HOSP Condition: Serious
[2021-06-16] MEDS ORDERED: LEVOFLOXACIN 750MG-D5W PMX 750 MG in DEXTROSE/WATER 1 150ML.BAG IVPB STA (01:57)
[2021-06-16] MEDS ORDERED: PIPERACILLIN-TAZOBACTAM 3.375 GM in SODIUM CHLORIDE 0.9% 100 ML IVPB STA (01:57)
[2021-06-16] MEDS ORDERED: IBUPROFEN IV 800 MG in SODIUM CHLORIDE 0.9% 250 ML IV ONE (01:57)
[2021-06-16 02:12] LABS: INR 1.7 (<1.2); Partial Thromboplastin Time 22.6 sec (22.0-30.0); Prothrombin Time 16.9 sec (9.0-12.0)
[2021-06-16 02:18] LABS: Albumin 4.5 g/dL (3.5-5.0); Anisocytosis Slight; Basophils # (A) 0.1 k/uL (0-0.2); Basophils % (A) 1 %; Calcium 10.8 mg/dL (8.4-10.2); Eosinophils % (A) 0 %; HCT 43.4 % (34.0-46.0); Lymphocytes # (A) 1.8 k/uL (1.0-4.8); Lymphocytes % (A) 10 %; MCH 34.4 pg (25.0-35.0); MCHC 32.8 g/dL (31.0-37.0); MCV 104.9 fL (80.0-100.0); Macrocytosis Marked; Mean Platelet Volume 8.4; Monocytes # (A) 0.7 k/uL (0-1.0); Monocytes % (A) 4 %; Neutrophils # (A) 15.5 k/uL (1.3-7.7); Neutrophils % (A) 85 %; Poikilocytosis Slight; Potassium 5.7 mmol/L (3.5-5.1); RBC 4.14 m/uL (3.80-5.40); RDW 17.7 % (11.5-15.5); Total Protein 9.9 g/dL (6.3-8.2); WBC 18.4 k/uL (3.8-10.6)
--- NOTE | 2021-06-16 02:22 | XR ---
EXAMINATION TYPE: XR chest 1V portable DATE OF EXAM: 06/16/2021 COMPARISON: 05/10/2021 HISTORY: Fever TECHNIQUE: FINDINGS: Endotracheal tube is 3.4 cm from the mia. There is diffuse pulmonary predominantly inter stitial edema. There is nasogastric tube in the stomach and looped on itself. Trachea is midline. Hea rt size is normal. IMPRESSION: There is pulmonary edema slightly increased compared to last exam but improvement in the pleural effusions. This could be developing RDS.
[2021-06-16 02:33] LABS: HGB 14.2 gm/dL (11.4-16.0)
[2021-06-16 02:34] LABS: Poikilocytosis (M) Present; Polychromasia Present
[2021-06-16] MEDS: SODIUM CHLORIDE 0.9% 500 ML 500 ML IV SCH ×2 (02:43→03:15)
[2021-06-16 03:00] LABS: Creatine Kinase MB <0.2 ng/mL (0.0-2.4)
[2021-06-16] MEDS ORDERED: SODIUM CHLORIDE 0.9% 2,000 ML IV STA (03:01)
[2021-06-16 03:02] LABS: Platelet Count 399 k/uL (150-450)
[2021-06-16 03:03] LABS: Troponin I 0.148 ng/mL (0.000-0.034)
[2021-06-16 03:27] LABS: ABG Base Excess -8.5 mmol/L; ABG HCO3 17 mmol/L (21-25); ABG Oxygen Saturation 99.5 % (94-97); ABG PCO2 33 mmHg (35-45); ABG PH 7.33 (7.35-7.45); ABG PO2 146 mmHg (83-108); ABG TCO2 18 mmol/L (19-24); Allen Test Performed? Yes
[2021-06-16] MEDS ORDERED: NALOXONE 0.4 MG/ML 1 ML VIAL IV PRN (03:30)
--- NOTE | 2021-06-16 03:39 | XR ---
EXAMINATION TYPE: XR chest 1V portable DATE OF EXAM: 06/16/2021 COMPARISON: Today HISTORY: Respiratory distress TECHNIQUE: Single view FINDINGS: Endotracheal tube is 3.5 cm from the mia. There is pulmonary interstitial and airspace e lauro. There is nasogastric tube in the stomach. There is right jugular catheter with tip in the super ior vena cava. There are chest leads. IMPRESSION: Pulmonary edema unchanged compared to exam one hour ago. This could be RDS.
[2021-06-16 03:56] LABS: Appearance,Urine Clear (Clear); Bacteria,Urine Rare /hpf; Bilirubin,Urine Negative (Negative); Blood,Urine Negative (Negative); Color,Urine Yellow; Glucose,Urine (UA) Negative (Negative); Ketones,Urine Negative (Negative); Leukocyte Esterase,Urine Negative (Negative); Mucus,Urine Few /hpf; Nitrite,Urine Negative (Negative); PH, Urine 5.5 (5.0-8.0); Protein,Urine 1+ (Negative); Specific Gravity,Urine 1.018 (1.001-1.035); Squamous Epithelial Cell,Urine 2 /hpf (0-4); Urobilinogen,Urine <2.0 mg/dL (<2.0); WBC,Urine 1 /hpf (0-5)
[2021-06-16] MEDS: NOREPINEPHRINE 32 MG in SODIUM CHLORIDE 0.9% 218 ML IV SCH (05:09)
[2021-06-16] MEDS ORDERED: MIDAZOLAM 1 MG/ML 5 ML VIAL IV PRN (07:17)
[2021-06-16] MEDS: IPRATROPIUM-ALBUTEROL 3 ML NEB INHALATION SCH ×4 (07:52→21:13)
[2021-06-16] MEDS ORDERED: propofoL 100 ML IV ONE (08:01)
--- NOTE | 2021-06-16 08:33 | P.NPCON ---
History of Present Illness - Reason for Consult acute renal failure, hypernatremia - History of Present Illness Reason for consultation: Acute kidney injury and electrolyte imbalance History of present illness: Patient is a 56-year-old female seen in renal consultation for acute kidney injury and electrolyte imbalance. Patient was sent from an extended care facility due to unresponsiveness. Patient was hypoxic on nonrebreather and was subsequently intubated in the emergency room. She currently has an OG tube. She was noted to have a fever. She was also hypotensive on admission. She has received 4 L of normal saline and is currently on low-dose Levophed. Her sodium was high at 154 and a potassium level is high 5.7. She was also acidotic with bicarb level of 18. Lactic acid was 5.0 and is now down to 1.4. She has a Espinoza catheter. She is intubated on 100% FiO2. I do see ibuprofen in her home medication list. She was also on potassium supplementation outpatient. UA is fairly benign. She is receiving IV antibiotics. She tested negative for coronavirus. Vital signs are stable. On vasopressor support. General: The patient appeared well nourished and normally developed. HEENT: Intubated. LUNGS: Breath sounds decreased. HEART: Tachycardic. ABDOMEN: Soft, no distention. EXTREMITITES: No edema. Past Medical History Past Medical History: No Reported History Additional Past Medical History / Comment(s): UTI, Left tibial fx, History of Any Multi-Drug Resistant Organisms: None Reported Past Surgical History: Cardiac Valve Replacement Additional Past Surgical History / Comment(s): left ovary removed Past Anesthesia/Blood Transfusion Reactions: No Reported Reaction Past Psychological History: Schizoaffective Disorder, Schizophrenia Smoking Status: Current every day smoker Past Alcohol Use History: None Reported Past Drug Use History: None Reported - Past Family History Mother History Unknown: Yes Father History Unknown: Yes Medications and Allergies Home Medications Medication Instructions Recorded Confirmed Type DULoxetine HCL [Cymbalta] 30 mg PO DAILY 30 Days capsule. 08/13/20 06/16/21 Rx Albuterol Inhaler [Ventolin Hfa 2 puff INHALATION RT-Q4H PRN 02/21/21 06/16/21 History Inhaler] Aspirin 81 mg PO DAILY #30 chew 02/25/21 06/16/21 Rx Donepezil [Aricept] 5 mg PO DAILY 06/16/21 06/16/21 History Folic Acid 1 mg PO DAILY 06/16/21 06/16/21 History Heparin Sodium,Porcine [Heparin 5,000 unit SQ Q8HR 06/16/21 06/16/21 History Sodium] Ibuprofen [Motrin Ib] 200 mg PO Q6H PRN 06/16/21 06/16/21 History Levothyroxine Sodium [Synthroid] 50 mcg PO DAILY@0500 06/16/21 06/16/21 History Melatonin 3 mg PO HS PRN 06/16/21 06/16/21 History Pantoprazole [Protonix] 40 mg PO TID 06/16/21 06/16/21 History Potassium Chloride [Klor-Con 20] 40 meq PO DAILY 06/16/21 06/16/21 History Allergies Allergy/AdvReac Type Severity Reaction Status Date / Time acetaminophen [From Vicodin] Allergy Rash/Hives Verified 06/16/21 07:27 hydrocodone [From Vicodin] Allergy Rash/Hives Verified 06/16/21 07:27 Physical Exam Vitals: Vital Signs Temp Pulse Resp BP Pulse Ox 06/16/21 08:07 110 H 06/16/21 07:53 110 H 06/16/21 07:46 84/41 06/16/21 06:37 103 F H 110 H 22 106/38 98 06/16/21 06:02 197 H 22 104/82 99 06/16/21 05:20 102.9 F H 179 H 24 80/50 98 06/16/21 04:01 155 H 24 99/51 99 06/16/21 03:00 103.4 F H 154 H 24 73/61 10 L 06/16/21 02:01 151 H 20 106/42 100 06/16/21 01:30 102.2 F H 153 H 28 H 64/38 89 L Intake and Output 06/15/21 06/16/21 06/16/21 22:59 06:59 14:59 Intake Total 0.106 Balance 0.106 Intake: Intake, IV Titration 0.106 Amount Norepinephrine 32 mg In 0.106 Sodium Chloride 0.9% 218 ml @ 0.05 MCG/KG/MIN 2. 126 mls/hr IV .Q24H [facility] Rx#:[id number] Other: Weight 90.718 kg Results - Lab Results Most recent lab results ABG pH 7.33 (7.35-7.45) L 06/16/21 03:22 ABG pCO2 33 mmHg (35-45) L 06/16/21 03:22 ABG pO2 146 mmHg (83-108) H 06/16/21 03:22 ABG HCO3 17 mmol/L (21-25) L 06/16/21 03:22 ABG O2 Saturation 99.5 % (94-97) H 06/16/21 03:22 Calcium 10.8 mg/dL (8.4-10.2) H 06/16/21 01:54 06/16/21 01:54 06/16/21 01:54 Assessment and Plan Plan: Assessment: 1. Acute kidney injury secondary to ATN secondary to septic shock. Creatinine 3.65 on admission. Baseline creatinine near 1. 2. Septic shock on Levophed. 3. Acute hypoxic respiratory failure. On 100% FiO2. 4. Hypernatremia from lack of oral water intake. 5. Hyperkalemia secondary to acute kidney injury, metabolic acidosis and pota ssium supplementation. 6. Metabolic acidosis secondary to acute kidney injury and lactic acidosis. 7. Hypercalcemia secondary to volume contraction. Plan: Start half normal saline to be run at 150 mL an hour for maintenance fluids. Follow-up cultures. Check renal ultrasound. Repeat BMP this afternoon. Wean FiO2 and vasopressors. Continue to monitor renal function and urine output. Thank you for the consultation. I will continue to follow the patient with you during her hospital stay.
[2021-06-16 08:34] LABS: Glucose,Whole Blood 167 mg/dL (75-99)
[2021-06-16] MEDS: PIPERACILLIN-TAZOBACTAM 3.375 GM in SODIUM CHLORIDE 0.9% 100 ML IVPB SCH ×2 (08:50→20:07)
[2021-06-16] MEDS: CHLORHEXIDINE GLUCONATE 15 ML CUP MUCOUS MEM SCH ×2 (08:50→20:06)
[2021-06-16] MEDS: PANTOPRAZOLE 40 MG/10 ML VIAL IV SCH (08:50)
[2021-06-16] MEDS: SODIUM CHLORIDE 0.45% 1,000 ML IV SCH ×2 (08:51→18:07)
[2021-06-16] MEDS ORDERED: SODIUM CHLORIDE 0.9% 2,000 ML IV ONE (09:40)
--- NOTE | 2021-06-16 09:43 | P.CNPUL ---
History of Present Illness Consult date: 06/16/21 Chief complaint: Mental status change History of present illness: 56-year-old female patient, a alf resident, presented to the emergency department with unresponsiveness. She had altered mentation above and beyond her baseline. I've taken care of this patient approximately a month ago when she came in to the ICU with septic shock secondary to E. coli UTI and sepsis. During this time around, the patient was profoundly hypotensive. She had significant metabolic disturbances and she was also in acute kidney injury. For now, her white cell count is at 18.4. Hemoglobin is at 14.2. She has a platelet count of 399, INR of 1.7 with a PT of 16.9, sodium of 154 with a serum bicarb of 18 and an anion gap of 19 with a potassium level of 5.7, glucose of 206, lactic acid level was quite elevated at 5, troponin of 0.4, abnormal AST of 238, ALT of 128, and the patient's urinalysis was positive only for Proteus. COVID-19 testing was negative. Chest x-ray shows chronic interstitial changes bilaterally consistent with previous history of bibasilar pulmonary fibrosis. The patient was quite hypotensive. The patient was started on pressors. The patient was intubated and placed on a mechanical ventilator in the burst department. She received a total of 2 L of normal saline and currently she is on half normal saline running at 150 mL an hour. She is on a mechanical ventilator on assist control mode at the rate of 14 with a tidal volume of 400 and FiO2 of 5% and a PEEP of 5. Blood gas from today showed a pH of 7.33 with a pCO2 of 33 and pO2 of 146. She is cold and clammy and she has multiple skin lower extremities bilaterally. Urine output is low however is gradually improving. No other history is available. She'll have a history of schizoaffective disorder. Previous echocardiogram has shown a preserved LV fun ction with an ejection fraction of 55% based on echocardiogram that was done in February 2021. Cardiac rhythm is sinus.. The patient was given a triple lumen catheter in the right IJ. She doesn't have an arterial line for now. She is currently operable for which is running at 30 mcg/kg per minute. She is on norepinephrine infusion at 0.2 mcg/kg per minute. Review of Systems ROS unobtainable: due to mental status Past Medical History Past Medical History: No Reported History Additional Past Medical History / Comment(s): UTI, Left tibial fx History of Any Multi-Drug Resistant Organisms: None Reported Past Surgical History: Cardiac Valve Replacement Additional Past Surgical History / Comment(s): left ovary removed Past Anesthesia/Blood Transfusion Reactions: No Reported Reaction Past Psychological History: Schizoaffective Disorder, Schizophrenia Smoking Status: Current every day smoker Past Alcohol Use History: None Reported Past Drug Use History: None Reported - Past Family History Mother History Unknown: Yes Father History Unknown: Yes Medications and Allergies Home Medications Medication Instructions Recorded Confirmed Type DULoxetine HCL [Cymbalta] 30 mg PO DAILY 30 Days capsule. 08/13/20 06/16/21 Rx Albuterol Inhaler [Ventolin Hfa 2 puff INHALATION RT-Q4H PRN 02/21/21 06/16/21 History Inhaler] Aspirin 81 mg PO DAILY #30 chew 02/25/21 06/16/21 Rx Donepezil [Aricept] 5 mg PO DAILY 06/16/21 06/16/21 History Folic Acid 1 mg PO DAILY 06/16/21 06/16/21 History Heparin Sodium,Porcine [Heparin 5,000 unit SQ Q8HR 06/16/21 06/16/21 History Sodium] Ibuprofen [Motrin Ib] 200 mg PO Q6H PRN 06/16/21 06/16/21 History Levothyroxine Sodium [Synthroid] 50 mcg PO DAILY@0500 06/16/21 06/16/21 History Melatonin 3 mg PO HS PRN 06/16/21 06/16/21 History Pantoprazole [Protonix] 40 mg PO TID 06/16/21 06/16/21 History Potassium Chloride [Klor-Con 20] 40 meq PO DAILY 06/16/21 06/16/21 History Allergies Allergy/AdvReac Type Severity Reaction Status Date / Time acetaminophen [From Vicodin] Allergy Rash/Hives Verified 06/16/21 07:27 hydrocodone [From Vicodin] Allergy Rash/Hives Verified 06/16/21 07:27 Physical Exam Vitals: Vital Signs Temp Pulse Resp BP Pulse Ox 06/16/21 09:10 110 H 41 H 107/65 100 06/16/21 09:00 112 H 42 H 97/65 100 06/16/21 08:50 111 H 38 H 97/65 100 06/16/21 08:40 102.9 F H 107 H 42 H 84/45 100 06/16/21 08:31 53 H 06/16/21 08:07 110 H 06/16/21 07:53 110 H 06/16/21 07:46 84/41 06/16/21 06:37 103 F H 110 H 22 106/38 98 06/16/21 06:02 197 H 22 104/82 99 06/16/21 05:20 102.9 F H 179 H 24 80/50 98 06/16/21 04:01 155 H 24 99/51 99 06/16/21 03:00 103.4 F H 154 H 24 73/61 10 L 06/16/21 02:01 151 H 20 106/42 100 06/16/21 01:30 102.2 F H 153 H 28 H 64/38 89 L Intake and Output 06/15/21 06/16/21 06/16/21 22:59 06:59 14:59 Intake Total 0.106 300 Output Total 150 Balance 0.106 150 Intake: IV 300 0.45 300 Intake, IV Titration 0.106 Amount Norepinephrine 32 mg In 0.106 Sodium Chloride 0.9% 218 ml @ 0.05 MCG/KG/MIN 2. 126 mls/hr IV .Q24H [facility] Rx#:[id number] Output: Urine 150 Other: Weight 90.718 kg Gen. appearance, sedated, comfortable no acute distress. She is intubated on a mechanical ventilator. Orogastric and orotracheal tube are both in place. Head exam was generally normal. There was no scleral icterus or corneal arcus. Mucous membranes were moist. Neck was supple and without jugular venous distension, thyromegaly, or carotid bruits. Carotids were easily palpable bilaterally. There was no adenopathy. Lungs were clear to auscultation and percussion, and with normal diaphragmatic excursion. No wheezes or rales were noted. Cardiac exam revealed the PMI to be normally situated and sized. The rhythm was regular and no extrasystoles were noted during several minutes of auscultation. The first and second heart sounds were normal and physiologic splitting of the second heart sound was noted. There were no murmurs, rubs, clicks, or gallops. Abdominal exam revealed normal bowel sounds. The abdomen was soft, non-tender, and without masses, organomegaly, or appreciable enlargement of the abdominal aorta. Examination of the extremities revealed v weak radial, femoral and pedal pulses. There was no cyanosis, clubbing or edema. Diminished pulses in all 4 extremities and the patient has been cold and clammy. Examination of the skin revealed no evidence of significant rashes, suspicious appearing nevi or other concerning lesions. Neurologically lethargic yet arousable. No focal logical deficits. Pupils are equal and reactive to light. No facial asymmetry. No neck stiffness. No nystagmus. No clonus. Motor function is reduced in all 4 extremities and the patient has global weakness. Sensory cannot be adequately assessed. Reflexes equal and symmetrical. Results - Laboratory Findings CBC and BMP: 06/16/21 01:54 06/16/21 01:54 ABG WBC 18.4 k/uL (3.8-10.6) H 06/16/21 01:54 RBC 4.14 m/uL (3.80-5.40) 06/16/21 01:54 Hgb 14.2 gm/dL (11.4-16.0) D 06/16/21 01:54 Hct 43.4 % (34.0-46.0) 06/16/21 01:54 MCV 104.9 fL (80.0-100.0) H 06/16/21 01:54 MCH 34.4 pg (25.0-35.0) 06/16/21 01:54 MCHC 32.8 g/dL (31.0-37.0) 06/16/21 01:54 RDW 17.7 % (11.5-15.5) H 06/16/21 01:54 Plt Count 399 k/uL (150-450) D 06/16/21 01:54 MPV 8.4 06/16/21 01:54 Neutrophils % 85 % 06/16/21 01:54 Lymphocytes % 10 % 06/16/21 01:54 Monocytes % 4 % 06/16/21 01:54 Eosinophils % 0 % 06/16/21 01:54 Basophils % 1 % 06/16/21 01:54 Neutrophils # 15.5 k/uL (1.3-7.7) H 06/16/21 01:54 Lymphocytes # 1.8 k/uL (1.0-4.8) 06/16/21 01:54 Monocytes # 0.7 k/uL (0-1.0) 06/16/21 01:54 Eosinophils # 0.0 k/uL (0-0.7) 06/16/21 01:54 Basophils # 0.1 k/uL (0-0.2) 06/16/21 01:54 Manual Slide Review Performed 06/16/21 01:54 Polychromasia Present 06/16/21 01:54 Poikilocytosis Slight 06/16/21 01:54 Poikilocytosis (manual Present 06/16/21 01:54 Anisocytosis Slight 06/16/21 01:54 Macrocytosis Marked A 06/16/21 01:54 PT 16.9 sec (9.0-12.0) H 06/16/21 01:54 INR 1.7 (<1.2) H 06/16/21 01:54 APTT 22.6 sec (22.0-30.0) 06/16/21 01:54 Sample Site [facility] 06/16/21 03:22 ABG pH 7.33 (7.35-7.45) L 06/16/21 03:22 ABG pCO2 33 mmHg (35-45) L 06/16/21 03:22 ABG pO2 146 mmHg (83-108) H 06/16/21 03:22 ABG HCO3 17 mmol/L (21-25) L 06/16/21 03:22 ABG Total CO2 18 mmol/L (19-24) L 06/16/21 03:22 ABG O2 Saturation 99.5 % (94-97) H 06/16/21 03:22 ABG Base Excess -8.5 mmol/L 06/16/21 03:22 Miller Test Yes 06/16/21 03:22 FiO2 100 % 06/16/21 03:22 Sodium 154 mmol/L (137-145) H 06/16/21 01:54 Potassium 5.7 mmol/L (3.5-5.1) H 06/16/21 01:54 Chloride 117 mmol/L (98-107) H 06/16/21 01:54 Carbon Dioxide 18 mmol/L (22-30) L 06/16/21 01:54 Anion Gap 19 mmol/L 06/16/21 01:54 BUN 83 mg/dL (7-17) H 06/16/21 01:54 Creatinine 3.65 mg/dL (0.52-1.04) H 06/16/21 01:54 Est GFR (CKD-EPI)AfAm 15 (>60 ml/min/1.73 sqM) 06/16/21 01:54 Est GFR (CKD-EPI)NonAf 13 (>60 ml/min/1.73 sqM) 06/16/21 01:54 Glucose 206 mg/dL (74-99) H 06/16/21 01:54 POC Glucose (mg/dL) 167 mg/dL (75-99) H 06/16/21 08:30 POC Glu [employer] Technician ID Sana Valerio 06/16/21 08:30 Lactic Ac Sepsis Rflx Y 06/16/21 03:04 Plasma Lactic Acid Grant 1.4 mmol/L (0.7-2.0) 06/16/21 06:01 Calcium 10.8 mg/dL (8.4-10.2) H 06/16/21 01:54 Total Bilirubin 1.0 mg/dL (0.2-1.3) 06/16/21 01:54 AST 238 U/L (14-36) H 06/16/21 01:54 ALT 128 U/L (4-34) H 06/16/21 01:54 Alkaline Phosphatase 87 U/L (38-126) 06/16/21 01:54 CK-MB (CK-2) <0.2 ng/mL (0.0-2.4) 06/16/21 01:54 Troponin I 0.423 ng/mL (0.000-0.034) H* 06/16/21 03:29 C-Reactive Protein 1.0 mg/dL (<1.0) H 06/16/21 01:54 Total Protein 9.9 g/dL (6.3-8.2) H 06/16/21 01:54 Albumin 4.5 g/dL (3.5-5.0) 06/16/21 01:54 Urine Color Yellow 06/16/21 03:41 Urine Appearance Clear (Clear) 06/16/21 03:41 Urine pH 5.5 (5.0-8.0) 06/16/21 03:41 Ur Specific [place] 1.018 (1.001-1.035) 06/16/21 03:41 Urine Protein 1+ (Negative) H 06/16/21 03:41 Urine Glucose (UA) Negative (Negative) 06/16/21 03:41 Urine Ketones Negative (Negative) 06/16/21 03:41 Urine Blood Negative (Negative) 06/16/21 03:41 Urine Nitrite Negative (Negative) 06/16/21 03:41 Urine Bilirubin Negative (Negative) 06/16/21 03:41 Urine Urobilinogen <2.0 mg/dL (<2.0) 06/16/21 03:41 Ur Leukocyte Esterase Negative (Negative) 06/16/21 03:41 Urine WBC 1 /hpf (0-5) 06/16/21 03:41 Ur Squamous Epith Cells 2 /hpf (0-4) 06/16/21 03:41 Urine Bacteria Rare /hpf (None) H 06/16/21 03:41 Urine Mucus Few /hpf (None) H 06/16/21 03:41 Coronavirus (PCR) Not Detected (Not Detectd) 06/16/21 01:54 PT/INR, D-dimer PT 16.9 sec (9.0-12.0) H 06/16/21 01:54 INR 1.7 (<1.2) H 06/16/21 01:54 Abnormal lab findings: Abnormal Labs 06/16/21 06/16/21 06/16/21 01:35 01:54 01:54 WBC 18.4 H MCV 104.9 H RDW 17.7 H Neutrophils # 15.5 H Macrocytosis Marked A PT INR ABG pH ABG pCO2 ABG pO2 ABG HCO3 ABG Total CO2 ABG O2 Saturation Sodium 154 H Potassium 5.7 H Chloride 117 H Carbon Dioxide 18 L BUN 83 H Creatinine 3.65 H Glucose 206 H POC Glucose (mg/dL) 182 H Plasma Lactic Acid Grant Calcium 10.8 H AST 238 H ALT 128 H Troponin I C-Reactive Protein 1.0 H Total Protein 9.9 H Urine Protein Urine Bacteria Urine Mucus 06/16/21 06/16/21 06/16/21 01:54 01:54 01:54 WBC MCV RDW Neutrophils # Macrocytosis PT 16.9 H INR 1.7 H ABG pH ABG pCO2 ABG pO2 ABG HCO3 ABG Total CO2 ABG O2 Saturation Sodium Potassium Chloride Carbon Dioxide BUN Creatinine Glucose POC Glucose (mg/dL) Plasma Lactic Acid Grant 5.0 H* Calcium AST ALT Troponin I 0.148 H* C-Reactive Protein Total Protein Urine Protein Urine Bacteria Urine Mucus 06/16/21 06/16/21 06/16/21 03:22 03:29 03:41 WBC MCV RDW Neutrophils # Macrocytosis PT INR ABG pH 7.33 L ABG pCO2 33 L ABG pO2 146 H ABG HCO3 17 L ABG Total CO2 18 L ABG O2 Saturation 99.5 H Sodium Potassium Chloride Carbon Dioxide BUN Creatinine Glucose POC Glucose (mg/dL) Plasma Lactic Acid Grant Calcium AST ALT Troponin I 0.423 H* C-Reactive Protein Total Protein Urine Protein 1+ H Urine Bacteria Rare H Urine Mucus Few H 06/16/21 08:30 WBC MCV RDW Neutrophils # Macrocytosis PT INR ABG pH ABG pCO2 ABG pO2 ABG HCO3 ABG Total CO2 ABG O2 Saturation Sodium Potassium Chloride Carbon Dioxide BUN Creatinine Glucose POC Glucose (mg/dL) 167 H Plasma Lactic Acid Grant Calcium AST ALT Troponin I C-Reactive Protein Total Protein Urine Protein Urine Bacteria Urine Mucus - Diagnostic Findings Chest x-ray: image reviewed Assessment and Plan Plan: 1 Septic shock currently under investigation. Patient presents with altered mentation, hypotension, dehydration, leukocytosis, acute kidney injury. Highly suspect a recurrent UTI although the urine analysis is negative. Pending further cultures. The patient was given IV fluids. The patient was given a combination of Zosyn and Levaquin. 2 acute hypoxic respiratory failure secondary to above 3 altered mentation secondary to above 4 acute kidney injury secondary to above, the patient is oliguric at this point in time 5 acute hyperchloremic hypernatremia, likely secondary to intravascular volume depletion and dehydration 6 history of recurrent UTIs most recent hospitalization was for E. coli UTI and sepsis 7 history of fall with a previous left A. fib/tib fracture, managed conservatively by orthopedic surgery with interval 8 history of paroxysmal atrial fibrillation, normal cardiac rhythm is sinus rhythm 9 obesity with a BMI of 37 10 history of schizoaffective disorder 11 lactic acidosis, improving 12 non-anion gap metabolic acidosis 13 transaminitis 14 Troponin leak 15 pulmonary fibrosis along with some honeycombing and traction bronchiectasis, seen on old CAT scans of the chest. Meanwhile, COVID-19 testing was negative. 16 [facility] resident with a poor baseline performance and functional status plan Give the patient additional 2 L of normal saline Agree on half normal saline as maintenance at the rate of 150 mL an hour Continue same antibiotic coverage with Zosyn and Levaquin Urine cultures and blood cultures Ultrasound the kidneys Monitor electrolyte and repeated labs at around noontime today Continue weaning off pressors as tolerated to maintain a mean arterial pressure above 65 Continue ventilator support and increased respiratory rate up to 24 We'll establish an arterial line Heparin SC DVT prophylaxis Condition is critical we'll continue to follow make further recommendations based on her progress. Time with Patient: Greater than 30
--- NOTE | 2021-06-16 10:02 | P.CRDCN ---
History of Present Illness Consult date: 06/16/21 History of present illness: HISTORY OF PRESENT ILLNESS: This is a 56-year-old female with a past medical history significant for schizophrenia, hypothyroidism, and paraoxysmal atrial fibrillation. Patient does not follow with a estate and trust tax principal but was seen in consultation by Dr. Hebert in February 2021. We have been asked to see the patient in consultation for afib with RVR. Patient was apparently found unresponsive at the [facility] where she resides. Yudith mcneil was brought to the hospital where she was found to be in septic shock. Patient was intubated in the emergency room. She was hypotensive and placed on vasopressor support. Patient examined at the bedside in the intensive care unit. Patient remains intubated. Telemetry reveals sinus tachycardia. EKG on admission reviewed by Dr. Shrestha revealing sinus tachycardia. Chest x-ray on admission reveals pulmonary edema slightly increased compared to last exam but improvement in pleural effusions. Laboratory data reveals WBC 18.4. Hemoglobin 14.2. Platelet count 399. Sodium 154. Potassium 5.7. BUN 83. Creatinine 3.65. Lactic acid 5.0. Repeat 1.4. Troponin 0.148. 0.423. Echocardiogram completed in February 2021 revealed ejection fraction 55-60%, trace aortic regurgitation, mild to moderate tricuspid regurgitation, and trace mitral regurgitation, with mild to moderate pulmonary hypertension. Current home cardiac medications include aspirin 81 mg daily. REVIEW OF SYSTEMS: At the time of my exam: Unable to obtain thorough review of systems secondary to mechanical ventilation PHYSICAL EXAM: VITAL SIGNS: Reviewed. GENERAL: Well-developed in no acute distress. HEENT: Head is normocephalic. Pupils are equal, round. Sclerae anicteric. Mucous membranes of the mouth are moist. Neck supple. No JVD or thyromegaly LUNGS: Respirations even and unlabored. Lungs essentially clear to auscultation bilaterally. HEART: Tachycardic. Regular rate and rhythm. S1 and S2 heard. ABDOMEN: Soft. Nondistended. Nontender. EXTREMITIES: No clubbing or cyanosis. Peripheral pulses intact. No lower extremity edema NEUROLOGIC: Sedated on mechanical ventilation ASSESSMENT: Septic shock, present on admission, etiology unclear Abnormal troponins, secondary to above, not suggestive of acute coronary syndrome Acute hypoxic respiratory failure requiring mechanical ventilation Acute renal failure Lactic acidosis Hypernatremia Hyperkalemia Elevated LFTs Paroxysmal atrial fibrillation, not on anticoagulation on an outpatient basis Hypothyroidism Schizophrenia PLAN: Obtain 2D echo to assess cardiac structure and function Continue telemetry monitoring Continue SQ heparin at this time Wean vasopressors as tolerated Further recommendations pending patient course Nurse practitioner note has been reviewed by physician. Signing provider agrees with the documented findings, assessment, and plan of care. Past Medical History Past Medical History: No Reported History Additional Past Medical History / Comment(s): UTI, Left tibial fx History of Any Multi-Drug Resistant Organisms: None Reported Past Surgical History: Cardiac Valve Replacement Additional Past Surgical History / Comment(s): left ovary removed Past Anesthesia/Blood Transfusion Reactions: No Reported Reaction Past Psychological History: Schizoaffective Disorder, Schizophrenia Smoking Status: Current every day smoker Past Alcohol Use History: None Reported Past Drug Use History: None Reported - Past Family History Mother History Unknown: Yes Father History Unknown: Yes Medications and Allergies Home Medications Medication Instructions Recorded Confirmed Type DULoxetine HCL [Cymbalta] 30 mg PO DAILY 30 Days capsule. 08/13/20 06/16/21 Rx Albuterol Inhaler [Ventolin Hfa 2 puff INHALATION RT-Q4H PRN 02/21/21 06/16/21 History Inhaler] Aspirin 81 mg PO DAILY #30 chew 02/25/21 06/16/21 Rx Donepezil [Aricept] 5 mg PO DAILY 06/16/21 06/16/21 History Folic Acid 1 mg PO DAILY 06/16/21 06/16/21 History Heparin Sodium,Porcine [Heparin 5,000 unit SQ Q8HR 06/16/21 06/16/21 History Sodium] Ibuprofen [Motrin Ib] 200 mg PO Q6H PRN 06/16/21 06/16/21 History Levothyroxine Sodium [Synthroid] 50 mcg PO DAILY@0500 06/16/21 06/16/21 History Melatonin 3 mg PO HS PRN 06/16/21 06/16/21 History Pantoprazole [Protonix] 40 mg PO TID 06/16/21 06/16/21 History Potassium Chloride [Klor-Con 20] 40 meq PO DAILY 06/16/21 06/16/21 History Allergies Allergy/AdvReac Type Severity Reaction Status Date / Time acetaminophen [From Vicodin] Allergy Rash/Hives Verified 06/16/21 07:27 hydrocodone [From Vicodin] Allergy Rash/Hives Verified 06/16/21 07:27 Physical Exam Vitals: Vital Signs Temp Pulse Resp BP Pulse Ox 06/16/21 09:10 110 H 41 H 107/65 100 06/16/21 09:00 112 H 42 H 97/65 100 06/16/21 08:50 111 H 38 H 97/65 100 06/16/21 08:40 102.9 F H 107 H 42 H 84/45 100 06/16/21 08:31 53 H 06/16/21 08:07 110 H 06/16/21 07:53 110 H 06/16/21 07:46 84/41 06/16/21 06:37 103 F H 110 H 22 106/38 98 06/16/21 06:02 197 H 22 104/82 99 06/16/21 05:20 102.9 F H 179 H 24 80/50 98 06/16/21 04:01 155 H 24 99/51 99 06/16/21 03:00 103.4 F H 154 H 24 73/61 10 L 06/16/21 02:01 151 H 20 106/42 100 06/16/21 01:30 102.2 F H 153 H 28 H 64/38 89 L Intake and Output 06/15/21 06/16/21 06/16/21 22:59 06:59 14:59 Intake Total 0.106 300 Output Total 150 Balance 0.106 150 Intake: IV 300 0.45 300 Intake, IV Titration 0.106 Amount Norepinephrine 32 mg In 0.106 Sodium Chloride 0.9% 218 ml @ 0.05 MCG/KG/MIN 2. 126 mls/hr IV .Q24H [facility] Rx#:[id number] Output: Urine 150 Other: Weight 90.718 kg Results 06/16/21 01:54 06/16/21 01:54 Cardiac Enzymes 06/16/21 06/16/21 06/16/21 Range/Units 01:54 01:54 03:29 AST 238 H (14-36) U/L CK-MB (CK-2) <0.2 (0.0-2.4) ng/mL Troponin I 0.148 H* 0.423 H* (0.000-0.034) ng/mL Coagulation 06/16/21 Range/Units 01:54 PT 16.9 H (9.0-12.0) sec APTT 22.6 (22.0-30.0) sec CBC 06/16/21 Range/Units 01:54 WBC 18.4 H (3.8-10.6) k/uL RBC 4.14 (3.80-5.40) m/uL Hgb 14.2 D (11.4-16.0) gm/dL Hct 43.4 (34.0-46.0) % Plt Count 399 D (150-450) k/uL Comprehensive Metabolic Panel 06/16/21 Range/Units 01:54 Sodium 154 H (137-145) mmol/L Potassium 5.7 H (3.5-5.1) mmol/L Chloride 117 H (98-107) mmol/L Carbon Dioxide 18 L (22-30) mmol/L BUN 83 H (7-17) mg/dL Creatinine 3.65 H (0.52-1.04) mg/dL Glucose 206 H (74-99) mg/dL Calcium 10.8 H (8.4-10.2) mg/dL AST 238 H (14-36) U/L ALT 128 H (4-34) U/L Alkaline Phosphatase 87 (38-126) U/L Total Protein 9.9 H (6.3-8.2) g/dL Albumin 4.5 (3.5-5.0) g/dL Current Medications Generic Name Dose Route Start Last Admin Trade Name Freq PRN Reason Stop Dose Admin Albuterol/Ipratropium 3 ml 06/16/21 08:00 06/16/21 07:52 Ipratropium-Albuterol 3 Ml Neb INHALATION 3 ml RT-QID NIESHA Administration Chlorhexidine Gluconate 15 ml 06/16/21 09:00 06/16/21 08:50 Chlorhexidine Gluconate 15 Ml Cup MUCOUS MEM 15 ml BID NIESHA Administration Heparin Sodium (Porcine) 5,000 unit 06/16/21 09:45 Heparin Sodium,Porcine/Pf 5,000 Unit/0.5 Ml Syringe SQ Q8HR N[facility] Levofloxacin 750 mg/ IV 150 mls @ 100 mls/hr 06/17/21 04:00 Solution IVPB Q24H N[facility] Norepinephrine Bitartrate 32 250 mls @ 2.126 mls/hr 06/16/21 03:30 06/16/21 05:12 mg/ Sodium Chloride IV 0.1 mcg/kg/min .Q24H [facility] 4.252 mls/hr Titration Protocol 0.05 MCG/KG/MIN Sodium Chloride 1,000 mls @ 150 mls/hr 06/16/21 08:00 06/16/21 08:51 Saline 0.45% IV 150 mls/hr .Q6H40M NIESHA Administration Propofol 1,000 mg/ IV Solution 100 mls @ 0 mls/hr 06/16/21 08:00 IV .Q0M NIESHA Protocol Titrate Piperacillin Sod/Tazobactam 100 mls @ 25 mls/hr 06/16/21 09:00 06/16/21 08:50 Sod 3.375 gm/ Sodium Chloride IVPB 25 mls/hr Q12HR [facility] Administration Sodium Chloride 2,000 mls @ 999 mls/hr 06/16/21 09:40 Saline 0.9% IV 06/16/21 11:40 .Q2H1M ONE Midazolam HCl 5 mg 06/16/21 07:17 06/16/21 08:01 Midazolam 1 Mg/Ml 5 Ml Vial IV 5 mg ONCE PRN Administration Moderate Agitation Naloxone HCl 0.2 mg 06/16/21 03:30 Naloxone 0.4 Mg/Ml 1 Ml Vial IV Q2M PRN Opioid Reversal Pantoprazole Sodium 40 mg 06/16/21 09:00 06/16/21 08:50 Pantoprazole 40 Mg/10 Ml Vial IV 40 mg DAILY NIESHA Administration Intake and Output 06/15/21 06/16/21 06/16/21 22:59 06:59 14:59 Intake Total 0.106 300 Output Total 150 Balance 0.106 150 Intake: IV 300 0.45 300 Intake, IV Titration 0.106 Amount Norepinephrine 32 mg In 0.106 Sodium Chloride 0.9% 218 ml @ 0.05 MCG/KG/MIN 2. 126 mls/hr IV .Q24H [facility] Rx#:[id number] Output: Urine 150 Other: Weight 90.718 kg 06/16/21 01:54 06/16/21 01:54
--- NOTE | 2021-06-16 10:12 | US ---
EXAMINATION TYPE: US kidneys/renal and bladder DATE OF EXAM: 06/16/2021 COMPARISON: NONE CLINICAL HISTORY: migel. EXAM MEASUREMENTS: Right Kidney: 9.2 x 4.5 x 4.8 cm Left Kidney: 9.2 x 3.8 x 4.3 cm Patient of large body habitus carrying most of her weight in her abdomen. Exam done portable in ICU, patient on vent. Severely limited exam. Right Kidney: portions visualized show no hydro Left Kidney: portions visualized show no hydro, more limited than right Bladder: due to large panus and koch bladder not evaluated There is no evidence for hydronephrosis at this point in time. No nephrolithiasis is seen. No asad s are identified. Cortical medullary differentiation is maintained. IMPRESSION: The exam is somewhat limited. No evidence of hydronephrosis.
[2021-06-16] MEDS: HEPARIN SODIUM,PORCINE/PF 5,000 UNIT/0.5 ML SYRINGE SQ SCH ×3 (11:53→23:58)
[2021-06-16] MEDS: LEVOTHYROXINE IVP 100 MCG/5 ML VIAL IV SCH (11:57)
[2021-06-16] MEDS ORDERED: PIPERACILLIN-TAZOBACTAM 3.375 GM in SODIUM CHLORIDE 0.9% 100 ML IVPB SCH (12:00)
--- NOTE | 2021-06-16 13:40 | P.HPIM ---
History of Present Illness H&P Date: 06/16/21 Chief Complaint: Decreased responsiveness History of presenting complaint: This is a 56-year-old patient, follows with Dr. Beltrán at the [facility]. Patient was recently admitted to the hospital in May 05 and transferred on May 10 2 [facility] in [place].Admitted with UTI from cystitis with sepsis, bilateral pneumonia, septic shock, acute kidney injury with ATN.IV fluids. IV ceftriaxone. Admitted to the ICU. The transfer was done for continuous EEG monitoring. On this occasion patient is brought to with unresponsiveness. She was hypotensive. Acute kidney injury. Some abnormal liver enzymes, UA was positive. Patient was negative for COVID-19. Patient was intubated and put on the mechanical ventilator. Has been getting IV fluid boluses. This morning she has received about 4 L of fluids total. Has been in atrial fibrillation. Has or G-tube. Drips include we will affect, propofol, normal saline. FiO2 100% with a PEEP of 5. Febrile Review of systems: Cannot be done patient intubated Past medical history to include: Atrial fibrillation, bibasilar fibrotic lung changes with honeycombing, schizoaffective disorder, nicotine use, in February/2021 patient did have a left tibial plate to and left proximal fibular fracture Social history: [facility]. Smoker, until recently. Marijuana use history of Family history: Could not be obtained. Physical examination: VITAL SIGNS: 12.9, 107, 42, 84/45, under percent on ventilator GENERAL: Laying in bed, sedated EYES: Pupils equal. Conjunctiva normal. HEENT: External appearance of nose and ears normal, oral cavity mucous membranes. ET tube, or G-tube NECK: JVD unable to assess; masses not palpable. HEART: First and second heart sounds are normal; no edema. LUNGS: Respiratory rate increased; decreased breath sounds. ABDOMEN: Soft, nontender, liver spleen not palpable, no masses palpable. PSYCH: Unable to assess LYMPHATICS: No lymph nodes palpable in neck and axilla NEUROLOGICAL: Cranial nerves grossly intact; no facial asymmetry, INVESTIGATIONS, reviewed in the clinical context: WBC 18.4 hemoglobin 14.2 platelets 399, sodium 154 potassium 5.7 BUN 83 creatinine 3.65 lactic acid 5 AST 238 ALT 128 Troponin I 0.148, 0.4-3 EKG tracing personally reviewed by me-atrial flutter with 2 was 21 conduction Chest x-ray film personally reviewed by me-bilateral infiltrates/also some chronicity Previous testing: May 10: BUN 17 creatinine 0.93, AST/ALT both normal CT chest [02/24/2021] chronic parenchymal fibrotic changes greatest in the bases. With honeycombing. It is of groundglass opacities. 2-D echocardiogram: EF 55 have a 60%. [id number] tricuspid regurgitation. Some element of pulmonary hypertension Assessment and plan: -Acute/metabolic/toxic encephalopathy. From sepsis -Possible pneumonia suspected gram-negative organism, patient has underlying also chronic fibrotic changes IV Levaquin -Chronic bilateral pulmonary fibrosis with honeycombing Bronchodilators. -Septic shock On IV levo fed. Blood cultures pending. -Questionable seizure on Lasix admission patient was transferred to [facility] in [place] for further workup. We'll consult neurology to follow up on the same. -Acute kidney injury, likely from ATN from sepsis: Improving Admission creatinine 3.65. Patient's creatinine was 0.93 on May 10 -Metabolic and lactic acidosis from renal failure/sepsis Sodium bicarbonate 1 tablet 3 times a day -Persistent atrial flutter-fibrillation, rate uncontrolled Telemetry. Cardiology consultation -Chronic pulmonary fibrosis especially at the bases with honeycombing -Schizoaffective disorder On Invega -COPD in a smoker DuoNeb. -Hypernatremia from free water deficit IV fluids. Follow sodium -Hyperkalemia from acute kidney injury Hydrate patient. -Likely acute ischemic hepatitis from hypotension Follow-up LFTs -Troponin leak from hemodynamic mismatch and sepsis. Not a clinical picture of acute coronary syndrome Cardiology consulted. Patient's currently on levo fed IV, propofol IV, IV fluids. On the ventilator. Getting IV fluids. We'll consult urology for the recent workup of seizures. Follow labs closely. Past Medical History Past Medical History: No Reported History Additional Past Medical History / Comment(s): UTI, Left tibial fx History of Any Multi-Drug Resistant Organisms: None Reported Past Surgical History: Cardiac Valve Replacement Additional Past Surgical History / Comment(s): left ovary removed Past Anesthesia/Blood Transfusion Reactions: No Reported Reaction Past Psychological History: Schizoaffective Disorder, Schizophrenia Smoking Status: Current every day smoker Past Alcohol Use History: None Reported Past Drug Use History: None Reported - Past Family History Mother History Unknown: Yes Father History Unknown: Yes Medications and Allergies Home Medications Medication Instructions Recorded Confirmed Type DULoxetine HCL [Cymbalta] 30 mg PO DAILY 30 Days capsule. 08/13/20 06/16/21 Rx Albuterol Inhaler [Ventolin Hfa 2 puff INHALATION RT-Q4H PRN 02/21/21 06/16/21 History Inhaler] Aspirin 81 mg PO DAILY #30 chew 02/25/21 06/16/21 Rx Donepezil [Aricept] 5 mg PO DAILY 06/16/21 06/16/21 History Folic Acid 1 mg PO DAILY 06/16/21 06/16/21 History Heparin Sodium,Porcine [Heparin 5,000 unit SQ Q8HR 06/16/21 06/16/21 History Sodium] Ibuprofen [Motrin Ib] 200 mg PO Q6H PRN 06/16/21 06/16/21 History Levothyroxine Sodium [Synthroid] 50 mcg PO DAILY@0500 06/16/21 06/16/21 History Melatonin 3 mg PO HS PRN 06/16/21 06/16/21 History Pantoprazole [Protonix] 40 mg PO TID 06/16/21 06/16/21 History Potassium Chloride [Klor-Con 20] 40 meq PO DAILY 06/16/21 06/16/21 History Allergies Allergy/AdvReac Type Severity Reaction Status Date / Time acetaminophen [From Vicodin] Allergy Rash/Hives Verified 06/16/21 07:27 hydrocodone [From Vicodin] Allergy Rash/Hives Verified 06/16/21 07:27 Physical Exam Vitals: Vital Signs Temp Pulse Resp BP Pulse Ox 06/16/21 09:10 110 H 41 H 107/65 100 06/16/21 09:00 112 H 42 H 97/65 100 06/16/21 08:50 111 H 38 H 97/65 100 06/16/21 08:40 102.9 F H 107 H 42 H 84/45 100 06/16/21 08:31 53 H 06/16/21 08:07 110 H 06/16/21 07:53 110 H 06/16/21 07:46 84/41 06/16/21 06:37 103 F H 110 H 22 106/38 98 06/16/21 06:02 197 H 22 104/82 99 06/16/21 05:20 102.9 F H 179 H 24 80/50 98 06/16/21 04:01 155 H 24 99/51 99 06/16/21 03:00 103.4 F H 154 H 24 73/61 10 L 06/16/21 02:01 151 H 20 106/42 100 06/16/21 01:30 102.2 F H 153 H 28 H 64/38 89 L Intake and Output 06/15/21 06/16/21 06/16/21 22:59 06:59 14:59 Intake Total 0.106 300 Output Total 150 Balance 0.106 150 Intake: IV 300 0.45 300 Intake, IV Titration 0.106 Amount Norepinephrine 32 mg In 0.106 Sodium Chloride 0.9% 218 ml @ 0.05 MCG/KG/MIN 2. 126 mls/hr IV .Q24H [facility] Rx#:[id number] Output: Urine 150 Other: Weight 90.718 kg Results CBC & Chem 7: 06/16/21 01:54 06/16/21 01:54 Labs: Abnormal Lab Results - Last 24 Hours (Table) 06/16/21 06/16/21 06/16/21 Range/Units 01:35 01:54 01:54 WBC 18.4 H (3.8-10.6) k/uL MCV 104.9 H (80.0-100.0) fL RDW 17.7 H (11.5-15.5) % Neutrophils # 15.5 H (1.3-7.7) k/uL Macrocytosis Marked A PT (9.0-12.0) sec INR (<1.2) ABG pH (7.35-7.45) ABG pCO2 (35-45) mmHg ABG pO2 (83-108) mmHg ABG HCO3 (21-25) mmol/L ABG Total CO2 (19-24) mmol/L ABG O2 Saturation (94-97) % Sodium 154 H (137-145) mmol/L Potassium 5.7 H (3.5-5.1) mmol/L Chloride 117 H (98-107) mmol/L Carbon Dioxide 18 L (22-30) mmol/L BUN 83 H (7-17) mg/dL Creatinine 3.65 H (0.52-1.04) mg/dL Glucose 206 H (74-99) mg/dL POC Glucose (mg/dL) 182 H (75-99) mg/dL Plasma Lactic Acid Grant (0.7-2.0) mmol/L Calcium 10.8 H (8.4-10.2) mg/dL AST 238 H (14-36) U/L ALT 128 H (4-34) U/L Troponin I (0.000-0.034) ng/mL C-Reactive Protein 1.0 H (<1.0) mg/dL Total Protein 9.9 H (6.3-8.2) g/dL Urine Protein (Negative) Urine Bacteria (None) /hpf Urine Mucus (None) /hpf 06/16/21 06/16/21 06/16/21 Range/Units 01:54 01:54 01:54 WBC (3.8-10.6) k/uL MCV (80.0-100.0) fL RDW (11.5-15.5) % Neutrophils # (1.3-7.7) k/uL Macrocytosis PT 16.9 H (9.0-12.0) sec INR 1.7 H (<1.2) ABG pH (7.35-7.45) ABG pCO2 (35-45) mmHg ABG pO2 (83-108) mmHg ABG HCO3 (21-25) mmol/L ABG Total CO2 (19-24) mmol/L ABG O2 Saturation (94-97) % Sodium (137-145) mmol/L Potassium (3.5-5.1) mmol/L Chloride (98-107) mmol/L Carbon Dioxide (22-30) mmol/L BUN (7-17) mg/dL Creatinine (0.52-1.04) mg/dL Glucose (74-99) mg/dL POC Glucose (mg/dL) (75-99) mg/dL Plasma Lactic Acid Grant 5.0 H* (0.7-2.0) mmol/L Calcium (8.4-10.2) mg/dL AST (14-36) U/L ALT (4-34) U/L Troponin I 0.148 H* (0.000-0.034) ng/mL C-Reactive Protein (<1.0) mg/dL Total Protein (6.3-8.2) g/dL Urine Protein (Negative) Urine Bacteria (None) /hpf Urine Mucus (None) /hpf 06/16/21 06/16/21 06/16/21 Range/Units 03:22 03:29 03:41 WBC (3.8-10.6) k/uL MCV (80.0-100.0) fL RDW (11.5-15.5) % Neutrophils # (1.3-7.7) k/uL Macrocytosis PT (9.0-12.0) sec INR (<1.2) ABG pH 7.33 L (7.35-7.45) ABG pCO2 33 L (35-45) mmHg ABG pO2 146 H (83-108) mmHg ABG HCO3 17 L (21-25) mmol/L ABG Total CO2 18 L (19-24) mmol/L ABG O2 Saturation 99.5 H (94-97) % Sodium (137-145) mmol/L Potassium (3.5-5.1) mmol/L Chloride (98-107) mmol/L Carbon Dioxide (22-30) mmol/L BUN (7-17) mg/dL Creatinine (0.52-1.04) mg/dL Glucose (74-99) mg/dL POC Glucose (mg/dL) (75-99) mg/dL Plasma Lactic Acid Grant (0.7-2.0) mmol/L Calcium (8.4-10.2) mg/dL AST (14-36) U/L ALT (4-34) U/L Troponin I 0.423 H* (0.000-0.034) ng/mL C-Reactive Protein (<1.0) mg/dL Total Protein (6.3-8.2) g/dL Urine Protein 1+ H (Negative) Urine Bacteria Rare H (None) /hpf Urine Mucus Few H (None) /hpf 06/16/21 Range/Units 08:30 WBC (3.8-10.6) k/uL MCV (80.0-100.0) fL RDW (11.5-15.5) % Neutrophils # (1.3-7.7) k/uL Macrocytosis PT (9.0-12.0) sec INR (<1.2) ABG pH (7.35-7.45) ABG pCO2 (35-45) mmHg ABG pO2 (83-108) mmHg ABG HCO3 (21-25) mmol/L ABG Total CO2 (19-24) mmol/L ABG O2 Saturation (94-97) % Sodium (137-145) mmol/L Potassium (3.5-5.1) mmol/L Chloride (98-107) mmol/L Carbon Dioxide (22-30) mmol/L BUN (7-17) mg/dL Creatinine (0.52-1.04) mg/dL Glucose (74-99) mg/dL POC Glucose (mg/dL) 167 H (75-99) mg/dL Plasma Lactic Acid Grant (0.7-2.0) mmol/L Calcium (8.4-10.2) mg/dL AST (14-36) U/L ALT (4-34) U/L Troponin I (0.000-0.034) ng/mL C-Reactive Protein (<1.0) mg/dL Total Protein (6.3-8.2) g/dL Urine Protein (Negative) Urine Bacteria (None) /hpf Urine Mucus (None) /hpf
--- NOTE | 2021-06-16 13:46 | ECHOF ---
Referral Reason:lv function MEASUREMENTS -------- HEIGHT: 170.2 cm WEIGHT: 90.7 kg BP: 119/64 RVIDd: 2.9 cm (< 3.3) IVSd: 1.3 cm (0.6 - 1.1) LVIDd: 3.9 cm (3.9 - 5.3) LVPWd: 1.2 cm (0.6 - 1.1) IVSs: 1.5 cm LVIDs: 2.7 cm LVPWs: 1.4 cm LA Diam: 2.4 cm (2.7 - 3.8) Ao Diam: 3.0 cm (2.0 - 3.7) AV Cusp: 2.4 cm (1.5 - 2.6) MV E Ranjith: 0.60 m/s MV DecT: 364 ms MV A Ranjith: 0.63 m/s MV E/A Ratio: 0.96 RAP: 5.00 mmHg RVSP: 46.59 mmHg FINDINGS -------- Sinus rhythm. This was a technically adequate study. The left ventricular size is normal. There is mild concentric left ventricular hypertrophy. Overa ll left ventricular systolic function is normal with, an EF between 60 - 65 %. The right ventricle is normal in size. The left atrium is normal in size. The right atrium is normal in size. Interatrial and interventricular septum intact. The aortic valve is trileaflet, and appears structurally normal. No aortic stenosis or regurgitation. Mild mitral annular calcification present. Mild tricuspid regurgitation present. There is moderate pulmonary hypertension. The right ventric ular systolic pressure, as measured by Doppler, is 46.59mmHg. The pulmonic valve was not well visualized. The aortic root size is normal. Normal inferior vena cava with normal inspiratory collapse consistent with estimated right atrial pre ssure of 5 mmHg. There is no pericardial effusion. CONCLUSIONS -------- 1. The left ventricular size is normal. 2. There is mild concentric left ventricular hypertrophy. 3. Overall left ventricular systolic function is normal with, an EF between 60 - 65 %. 4. The aortic valve is trileaflet, and appears structurally normal. No aortic stenosis or regurgitati on. 5. Mild tricuspid regurgitation present. 6. There is moderate pulmonary hypertension. 7. The right ventricular systolic pressure, as measured by Doppler, is 46.59mmHg. 8. There is no pericardial effusion. RESISTANCE WELDING MACHINE OPERATOR: Ashleigh Rivers RDCS
[2021-06-16 15:39] LABS: Magnesium 1.9 mg/dL (1.6-2.3); Potassium 4.3 mmol/L (3.5-5.1)
[2021-06-16] MEDS ORDERED: DEXTROSE 5% IN WATER 100 ML with AMIODARONE 150 MG IV ONE (16:15)
[2021-06-16] MEDS ORDERED: ACETAMINOPHEN IV (For NPO) 1,000 MG in EMPTY BAG 1 BAG IVPB STA (16:26)
[2021-06-16] MEDS ORDERED: diphenhydrAMINE 50 MG/ML 1 ML VIAL IVP STA (16:26)
--- NOTE | 2021-06-16 16:50 | P.PCN ---
Date of Procedure: 06/16/21 Preoperative Diagnosis: Septic shock Postoperative Diagnosis: septic shock Procedure(s) Performed: Insertion of an arterial line Anesthesia: local Surgeon: Keo Mcintosh Operative Findings: Arterial Line Indication: Hemodynamic monitoring. A time-out was completed verifying correct patient, procedure, site, positioning, and implant(s) or special equipment if applicable. Allens test was performed to ensure adequate perfusion. The patients right groin was prepped and draped in sterile fashion. 1% Lidocaine was used to anesthetize the area. An 18G Arrow arterial line was introduced into the femoral artery. The catheter was threaded over the guide wire and the needle was removed with appropriate pulsatile blood return. Blood loss was minimal. The catheter was then sutured in place to the skin and a sterile dressing applied. Perfusion to the extremity distal to the point of catheter insertion was checked and found to be adequate. The patient tolerated the procedure well and there were no complications.
[2021-06-16] MEDS ORDERED: SODIUM BICARB 8.4% 50 ML SYR (1 MEQ/ML) IV STA (16:55)
[2021-06-16] MEDS: DEXTROSE 5% IN WATER 1,000 ML with SODIUM BICARB (1 MEQ/ML) 100 ML IV SCH (18:03)
[2021-06-16] MEDS: levETIRAcetam IV 500 MG in SODIUM CHLORIDE 0.9% 100 ML IVPB SCH ×2 (18:04→23:58)
[2021-06-16] MEDS: SODIUM BICARBONATE TAB 650 MG TAB PO SCH ×2 (18:04→20:06)
--- NOTE | 2021-06-16 19:09 | P.CNNES ---
History of Present Illness Consult date: 06/16/21 Requesting physician: Perry Rock Reason for Consult: questionable seizure History of Present Illness: This is a 56-year-old woman with medical history of likely seizure (04/2021), chronic kidney insufficiency, urinary tract infection, history of falls, schizoaffective disorder who is a [facility] that presented to the emergency department because of unresponsiveness. Neurology is consulted for possible seizures. Patient is known to me I seen her last on her 05/10/2021. Some of the work-up during this admission.: Initial vital signs as a blood pressure of 64/38, heart rate of 153, respiratory of 28, temperature of 102.2 Fahrenheit axillary, pulse ox of 89% on 15 L of nasal cannula. Patient presented with a white blood cell of 18.4 thousand and it's predominantly neutrophilic. Her initial creatinine was 3.65 but most recent is 3.34. Sodium on presentation is 154 and the most recent is 151. Serum glucose is 167. Initial plasma lactic acid venous is 5.0 and most recent is 1.4 Initial serum calcium 7.8 in the repeated is 8.0 AST of 238 and the ALT of 128. Chest x-rays reported as there is pulmonary edema slightly increased compared to last exam but improved in the pleural effusion. This could be developing RDS. Patient is intubated and in on IV propofol 35mcg/kg/min. Urinalysis is it's clear yellow, nitrate was negative, leukocyte esterase negative, bacteria was rare, urine white blood cells 1 and that urine mucus is few Per ICU team it was felt patient has septic shock and is under investigation but possibly secondary due to a E. coli UTI and sepsis she was profoundly hypotensi ve. Primary team feels due to pneumonia. The patient was started on pressors as a result. 2-D echo was reported as mild concentric left ventricle hypertrophy. Ejection fraction of 66 5%. Moderate pulmonary hypertension. Patient the troponin is trending up initially with 0.148 and the most recent is 0.43 Call virus is undetected As stated earlier I personally saw the patient last on 05/10/2021 and I felt the patient the altered mental status was likely due to septic encephalopathy from acute urinary tract infection and component of metabolic encephalopathy. I felt the patient had high suspicion of new onset seizure seen on the EEG of 05/08/2021 and she had myoclonic jerk were which were improving. At that time she was on Depakote 1000 mg every 12 hours and she was at home dose of 500 mg 1 tablet twice a day for mood stabilizer but was increased since also has antiepileptic effect. The patient was transferred to [facility] for long- term EEG an unknown what was the results. Psychiatry was also involved during the case and they did not feel the patient had catatonia while she was in the admitted on last admission. Of note she also had MRI of the brain which was a no evidence of recent infarct and a showed the nonspecific white matter changes favored particle chronic small vessel ischemia. She had a lumbar puncture on 05/07/2021 which was negative for meningeal encephalitis. Please refer to my note for further details. Review of Systems Review of system is limited but the prone positive and negative as per HPI. Past Medical History Past Medical History: No Reported History Additional Past Medical History / Comment(s): UTI, Left tibial fx History of Any Multi-Drug Resistant Organisms: None Reported Past Surgical History: Cardiac Valve Replacement Additional Past Surgical History / Comment(s): left ovary removed Past Anesthesia/Blood Transfusion Reactions: No Reported Reaction Past Psychological History: Schizoaffective Disorder, Schizophrenia Smoking Status: Current every day smoker Past Alcohol Use History: None Reported Past Drug Use History: None Reported - Past Family History Mother History Unknown: Yes Father History Unknown: Yes Medications and Allergies Home Medications Medication Instructions Recorded Confirmed Type DULoxetine HCL [Cymbalta] 30 mg PO DAILY 30 Days capsule. 08/13/20 06/16/21 Rx Albuterol Inhaler [Ventolin Hfa 2 puff INHALATION RT-Q4H PRN 02/21/21 06/16/21 History Inhaler] Aspirin 81 mg PO DAILY #30 chew 02/25/21 06/16/21 Rx Donepezil [Aricept] 5 mg PO DAILY 06/16/21 06/16/21 History Folic Acid 1 mg PO DAILY 06/16/21 06/16/21 History Heparin Sodium,Porcine [Heparin 5,000 unit SQ Q8HR 06/16/21 06/16/21 History Sodium] Ibuprofen [Motrin Ib] 200 mg PO Q6H PRN 06/16/21 06/16/21 History Levothyroxine Sodium [Synthroid] 50 mcg PO DAILY@0500 06/16/21 06/16/21 History Melatonin 3 mg PO HS PRN 06/16/21 06/16/21 History Pantoprazole [Protonix] 40 mg PO TID 06/16/21 06/16/21 History Potassium Chloride [Klor-Con 20] 40 meq PO DAILY 06/16/21 06/16/21 History Allergies Allergy/AdvReac Type Severity Reaction Status Date / Time acetaminophen [From Vicodin] Allergy Rash/Hives Verified 06/16/21 07:27 hydrocodone [From Vicodin] Allergy Rash/Hives Verified 06/16/21 07:27 Physical Examination - Vital Signs Vital Signs: Vital Signs Temp Pulse Resp BP Pulse Ox 06/16/21 15:00 156 H 36 H 109/73 95 06/16/21 14:00 97 36 H 119/65 100 06/16/21 13:00 98 39 H 131/69 99 06/16/21 12:00 102.7 F H 92 36 H 116/67 95 06/16/21 11:00 101 H 39 H 110/65 100 06/16/21 10:00 105 H 39 H 100/62 99 06/16/21 09:10 110 H 41 H 107/65 100 06/16/21 09:00 112 H 42 H 97/65 100 06/16/21 08:50 111 H 38 H 97/65 100 06/16/21 08:40 102.9 F H 107 H 42 H 84/45 100 06/16/21 08:31 53 H 06/16/21 08:07 110 H 06/16/21 07:53 110 H 06/16/21 07:46 84/41 06/16/21 06:37 103 F H 110 H 22 106/38 98 06/16/21 06:02 197 H 22 104/82 99 06/16/21 05:20 102.9 F H 179 H 24 80/50 98 06/16/21 04:01 155 H 24 99/51 99 06/16/21 03:00 103.4 F H 154 H 24 73/61 10 L 06/16/21 02:01 151 H 20 106/42 100 06/16/21 01:30 102.2 F H 153 H 28 H 64/38 89 L Intake and Output 06/16/21 06/16/21 06/16/21 06:59 14:59 22:59 Intake Total 0.106 3050 150 Output Total 500 200 Balance 0.106 2550 -50 Intake: IV 3050 150 0.45 1050 150 0.9 2000 Intake, IV Titration 0.106 Amount Norepinephrine 32 mg In 0.106 Sodium Chloride 0.9% 218 ml @ 0.05 MCG/KG/MIN 2. 126 mls/hr IV .Q24H [facility] Rx#:[id number] Output: Urine 500 200 Other: Voiding Method Indwelling Catheter Weight 90.718 kg GENERAL: The patient is lying in bed and does not seem in acute distress. HENT: supple neck. CHEST: The heart rate is regular rate rhythm. No murmurs to auscultation. No carotid bruit bilaterally. LUNG: Clear to auscultation bilaterally no wheezing noted throughout. Not labored breathing. Intubated on ventilator. ABDOMEN/GI: Bowel sounds present in all 4 quadrants. No tenderness to palpation throughout. NEUROLOGICAL: Limited since on IV propofol 35mcg/kg/min and intubated on vent. Higher mental function: The patient is comatose GCS 3, (E1, VT1, M1). Non- responsive and not following command. Cranial nerves: I had to manually opens the eyes. Primary gaze is midline. The pupils are round, equal and reactive to light. No facial weakness. Is breathing over the vent. Motor: The strength is limited in assessment because of her condition but not moving any extremities. Has decrease tone throughout. Normal bulk. Cerebellum: Could not assess. Sensation: Could not assess light touch and not withdrawing to painful stimuli. Reflexes (right/left): 1+ throughout. Plantars are mute bilaterally. Results - Laboratory Findings CBC and BMP: 06/16/21 01:54 06/16/21 15:00 Abnormal Lab Findings: Abnormal Labs 06/16/21 06/16/21 06/16/21 01:35 01:54 01:54 WBC 18.4 H MCV 104.9 H RDW 17.7 H Neutrophils # 15.5 H Macrocytosis Marked A PT INR ABG pH ABG pCO2 ABG pO2 ABG HCO3 ABG Total CO2 ABG O2 Saturation Sodium 154 H Potassium 5.7 H Chloride 117 H Carbon Dioxide 18 L BUN 83 H Creatinine 3.65 H Glucose 206 H POC Glucose (mg/dL) 182 H Plasma Lactic Acid Grant Calcium 10.8 H AST 238 H ALT 128 H Troponin I C-Reactive Protein 1.0 H Total Protein 9.9 H Urine Protein Urine Bacteria Urine Mucus 06/16/21 06/16/21 06/16/21 01:54 01:54 01:54 WBC MCV RDW Neutrophils # Macrocytosis PT 16.9 H INR 1.7 H ABG pH ABG pCO2 ABG pO2 ABG HCO3 ABG Total CO2 ABG O2 Saturation Sodium Potassium Chloride Carbon Dioxide BUN Creatinine Glucose POC Glucose (mg/dL) Plasma Lactic Acid Grant 5.0 H* Calcium AST ALT Troponin I 0.148 H* C-Reactive Protein Total Protein Urine Protein Urine Bacteria Urine Mucus 06/16/21 06/16/21 06/16/21 03:22 03:29 03:41 WBC MCV RDW Neutrophils # Macrocytosis PT INR ABG pH 7.33 L ABG pCO2 33 L ABG pO2 146 H ABG HCO3 17 L ABG Total CO2 18 L ABG O2 Saturation 99.5 H Sodium Potassium Chloride Carbon Dioxide BUN Creatinine Glucose POC Glucose (mg/dL) Plasma Lactic Acid Grant Calcium AST ALT Troponin I 0.423 H* C-Reactive Protein Total Protein Urine Protein 1+ H Urine Bacteria Rare H Urine Mucus Few H 06/16/21 06/16/21 08:30 15:00 WBC MCV RDW Neutrophils # Macrocytosis PT INR ABG pH ABG pCO2 ABG pO2 ABG HCO3 ABG Total CO2 ABG O2 Saturation Sodium 151 H Potassium Chloride 126 H Carbon Dioxide 11 L BUN 79 H Creatinine 3.34 H Glucose 167 H POC Glucose (mg/dL) 167 H Plasma Lactic Acid Grant Calcium 8.0 L AST ALT Troponin I C-Reactive Protein Total Protein Urine Protein Urine Bacteria Urine Mucus Assessment and Plan Assessment: Altered mental status due to multifactorial: septic encephalopathy: underinves tigation and component of toxic-metabolic encephalopathy (elevated LFT's, hypernatremia, and acute on chronic kidney insuffiency) and medication effect (is on IV propofol) High suspicious of seizure on 04/2021 (admission) and was transferred to [facility] for care home EEG and further work-up. Septic shock on levo Acute chronic kidney insufficiency Transaminitis Hypernatremia likely due to dehydration Troponin leak History of recurrent urinary tract infection History of fall History of proximal atrial fibrillation Schizoaffective disorder Plan: * I placed the patient on Keppra IV 500mg every 12 hours for her seizure was suspected in April 2021 for now (she was on Depakote but on hold since has elevated LFT's and once stable will consider starting patient home medication of Depakote 500mg 1 tab bid (was being used for mood stabilizer and has antiepileptic effect as well). I spoke with a nurse and will try to obtain records of her ambulatory EEG and further investigation she had and Caridad Montoya. We'll try to find out what medication she was discharged with. * I ordered ammonia level. If elevated we'll defer the management to the ICU in the primary team. * Possibly consider ID consult. * Cardiology is on board * Nephrology team is on board * We'll defer further work-up to the to the ICU in the primary team. * Per ICU nurse, he got a hold of her son and he stated if patient does not improve within 1-2 days he wants to withdraw care. Condition: Is very guarded. The plan was discussed with the patient ICU nurse. Thank you for the consultation. John Laws M.D. Neuro-hospitalist Time with Patient: Greater than 30
[2021-06-16 23:58] LABS: Glucose,Whole Blood 159 mg/dL (75-99)
[2021-06-17] MEDS: INSULIN ASPART (NovoLOG) 100 UNIT/ML VIAL SQ SCH ×5 (00:24→23:48)
[2021-06-17] MEDS ORDERED: VANCOMYCIN IV PER PHARMACY 1 EACH MISC MISCELLANE PRN (02:50)
[2021-06-17] MEDS: DEXTROSE 5% IN WATER 1,000 ML with SODIUM BICARB (1 MEQ/ML) 100 ML IV SCH ×3 (03:17→22:45)
[2021-06-17] MEDS ORDERED: VANCOMYCIN 1,750 MG in SODIUM CHLORIDE 0.9% 500 ML 500 ML IVPB ONE (03:30)
[2021-06-17] MEDS ORDERED: LEVOFLOXACIN 750MG-D5W PMX 750 MG in DEXTROSE/WATER 1 150ML.BAG IVPB SCH (04:00)
[2021-06-17 04:22] LABS: Anisocytosis Slight; Basophils % (A) 0 %; Eosinophils # (A) 0.1 k/uL (0-0.7); Eosinophils % (A) 0 %; HCT 34.5 % (34.0-46.0); Hypochromasia Slight; Lymphocytes # (A) 1.6 k/uL (1.0-4.8); Lymphocytes % (A) 9 %; MCH 33.5 pg (25.0-35.0); MCHC 32.2 g/dL (31.0-37.0); Macrocytosis Moderate; Mean Platelet Volume 9.4; Monocytes # (A) 0.3 k/uL (0-1.0); Monocytes % (A) 2 %; Neutrophils % (A) 89 %; Poikilocytosis Slight; RBC 3.31 m/uL (3.80-5.40); RDW 17.4 % (11.5-15.5)
[2021-06-17 04:26] LABS: HGB 11.1 gm/dL (11.4-16.0); Platelet Count 177 k/uL (150-450)
[2021-06-17 04:45] LABS: ABG Base Excess -4.5 mmol/L; ABG HCO3 21 mmol/L (21-25); ABG PCO2 36 mmHg (35-45); ABG PH 7.37 (7.35-7.45); ABG PO2 200 mmHg (83-108); ABG TCO2 22 mmol/L (19-24); Allen Test Performed? Yes
[2021-06-17 04:45] LABS: Albumin 2.7 g/dL (3.5-5.0); Calcium 7.6 mg/dL (8.4-10.2); Magnesium 1.9 mg/dL (1.6-2.3); Phosphorus 4.3 mg/dL (2.5-4.5); Potassium 3.2 mmol/L (3.5-5.1); Total Bilirubin 1.1 mg/dL (0.2-1.3); Total Protein 6.4 g/dL (6.3-8.2)
[2021-06-17] MEDS ORDERED: DEXTROSE 5% IN WATER 100 ML with AMIODARONE 150 MG IV ONE (05:00)
[2021-06-17] MEDS: NOREPINEPHRINE 32 MG in SODIUM CHLORIDE 0.9% 218 ML IV SCH (05:06)
[2021-06-17] MEDS ORDERED: AMIODARONE 360 MG in DEXTROSE 5% IN WATER 200 ML IV ONE ×2 (05:15)
[2021-06-17] MEDS ORDERED: POTASSIUM CHLORIDE 20 MEQ in WATER FOR INJECTION 1 100ML.BAG IVPB ONE (05:30)
[2021-06-17 05:58] LABS: Glucose,Whole Blood 154 mg/dL (75-99)
--- NOTE | 2021-06-17 07:40 | XR ---
EXAMINATION TYPE: XR chest 1V portable DATE OF EXAM: 06/17/2021 COMPARISON: Chest x-ray dated 06/16/2021 HISTORY: Intubated TECHNIQUE: Single frontal view of the chest is obtained. FINDINGS: Endotracheal tube, right jugular central venous catheter, orogastric tube are overlying ap propriate positions, distal tip of the central venous catheters within the right atrium. There is no evident pneumothorax. Patchy bilateral airspace disease is present. Cardiac mediastinal silhouette is stable. Aorta is dense. Difficult to exclude small effusions. IMPRESSION: Correlate for pneumonia, ARDS, congestive heart failure.
[2021-06-17] MEDS: IPRATROPIUM-ALBUTEROL 3 ML NEB INHALATION SCH ×4 (08:19→20:14)
[2021-06-17] MEDS ORDERED: LEVOFLOXACIN 500MG-D5W PMX 500 MG in DEXTROSE/WATER 1 100ML.BAG IVPB SCH (09:00)
[2021-06-17] MEDS: SODIUM BICARBONATE TAB 650 MG TAB PO SCH ×2 (09:09→15:10)
[2021-06-17] MEDS: CHLORHEXIDINE GLUCONATE 15 ML CUP MUCOUS MEM SCH ×2 (09:10→19:48)
[2021-06-17] MEDS: PANTOPRAZOLE 40 MG/10 ML VIAL IV SCH (09:10)
[2021-06-17] MEDS: PIPERACILLIN-TAZOBACTAM 3.375 GM in SODIUM CHLORIDE 0.9% 100 ML IVPB SCH ×2 (09:10→19:48)
[2021-06-17] MEDS: HEPARIN SODIUM,PORCINE/PF 5,000 UNIT/0.5 ML SYRINGE SQ SCH (09:10)
[2021-06-17] MEDS: levETIRAcetam IV 500 MG in SODIUM CHLORIDE 0.9% 100 ML IVPB SCH ×2 (09:10→19:48)
[2021-06-17] MEDS ORDERED: HEPARIN SODIUM 1,000 UN/ML (10ML VL) IV PRN (09:27)
[2021-06-17] MEDS ORDERED: HEPARIN SODIUM 1,000 UN/ML (10ML VL) IV ONE (09:27)
[2021-06-17] MEDS ORDERED: HEPARIN SOD,PORK IN 0.45% NACL 25,000 UNIT in 0.45% NACL 1 250ML.BAG IV SCH (09:30)
--- NOTE | 2021-06-17 09:30 | P.PN ---
Subjective Patient is seen in follow-up for acute kidney injury and electrolyte imbalance. Renal function is improving. Nonoliguric. Remains intubated. On Levophed. Also on amiodarone drip for A. fib. Acidosis improving and sodium level trending down. Blood cultures are positive for gram-positive cocci. Vital signs are stable. On vasopressor support. General: The patient appeared well nourished and normally developed. HEENT: Intubated. LUNGS: Breath sounds decreased. HEART: Rate and Rhythm are regular. ABDOMEN: Soft, no distention. Obese. EXTREMITITES: No edema. Objective - Vital Signs Vital signs: Vital Signs Temp 98.6 F 06/17/21 04:00 Pulse 82 06/17/21 08:32 Resp 23 06/17/21 07:00 BP 123/86 06/17/21 07:00 Pulse Ox 100 06/17/21 07:00 Intake & Output 06/16/21 06/17/21 06/17/21 18:59 06:59 18:59 Intake Total 3714.000 1968.479 Output Total 950 750 Balance 2764.000 1218.479 Weight 100.7 kg Intake: IV 3650 1625 0.45 1650 0.9 2000 Bicarb 1625 Intake, IV Titration 64.000 343.479 Amount Norepinephrine 32 mg In 64.000 140.045 Sodium Chloride 0.9% 218 ml @ 0.05 MCG/KG/MIN 2. 126 mls/hr IV .Q24H [facility] Rx#:[id number] propofoL 1,000 mg In 203.434 Empty Bag 1 bag @ Titrate IV .Q0M [facility] Rx#: [id number] Output: Urine 950 750 Other: Voiding Method Indwelling Catheter Indwelling Catheter ABP, PAP, CO, CI - Last Documented Arterial Blood Pressure 100/56 - Labs CBC & Chem 7: 06/17/21 04:10 06/17/21 04:10 Labs: Abnormal Lab Results - Last 24 Hours (Table) 06/16/21 06/16/21 06/17/21 Range/Units 15:00 23:56 04:10 WBC 18.0 H (3.8-10.6) k/uL RBC 3.31 L (3.80-5.40) m/uL Hgb 11.1 L D (11.4-16.0) gm/dL MCV 104.0 H (80.0-100.0) fL RDW 17.4 H (11.5-15.5) % Neutrophils # 16.0 H (1.3-7.7) k/uL ABG pO2 (83-108) mmHg ABG O2 Saturation (94-97) % Sodium 151 H (137-145) mmol/L Potassium (3.5-5.1) mmol/L Chloride 126 H (98-107) mmol/L Carbon Dioxide 11 L (22-30) mmol/L BUN 79 H (7-17) mg/dL Creatinine 3.34 H (0.52-1.04) mg/dL Glucose 167 H (74-99) mg/dL POC Glucose (mg/dL) 159 H (75-99) mg/dL Calcium 8.0 L (8.4-10.2) mg/dL AST (14-36) U/L ALT (4-34) U/L Albumin (3.5-5.0) g/dL 06/17/21 06/17/21 06/17/21 Range/Units 04:10 04:41 05:57 WBC (3.8-10.6) k/uL RBC (3.80-5.40) m/uL Hgb (11.4-16.0) gm/dL MCV (80.0-100.0) fL RDW (11.5-15.5) % Neutrophils # (1.3-7.7) k/uL ABG pO2 200 H (83-108) mmHg ABG O2 Saturation 100.0 H (94-97) % Sodium 149 H (137-145) mmol/L Potassium 3.2 L (3.5-5.1) mmol/L Chloride 118 H (98-107) mmol/L Carbon Dioxide 19 L (22-30) mmol/L BUN 74 H (7-17) mg/dL Creatinine 2.90 H (0.52-1.04) mg/dL Glucose 192 H (74-99) mg/dL POC Glucose (mg/dL) 154 H (75-99) mg/dL Calcium 7.6 L (8.4-10.2) mg/dL AST 592 H (14-36) U/L ALT 481 H (4-34) U/L Albumin 2.7 L (3.5-5.0) g/dL Microbiology - Last 24 Hours (Table) 06/16/21 03:40 Blood Culture Gram Stain - Preliminary Blood 06/16/21 03:40 Blood Culture - Final Blood 06/16/21 03:05 Blood Culture - Final Blood 06/16/21 02:10 Gram Stain - Preliminary Sputum Sputum Culture - Preliminary Assessment and Plan Plan: Assessment: 1. Acute kidney injury secondary to ATN secondary to septic shock. Creatinine 3.65 on admission - 2.9 today. Baseline creatinine near 1. No evidence of hydronephrosis noted on kidney ultrasound. 2. Septic shock on Levophed. Blood cultures positive for gram-positive cocci. On IV antibiotics. 3. Acute hypoxic respiratory failure. On 70% FiO2. 4. Hypernatremia from lack of oral water intake. Improving. 5. Hypokalemia from poor intake and intracellular shifting from IV bicarb. 6. Metabolic acidosis secondary to acute kidney injury and lactic acidosis. Improving. 7. Hypercalcemia secondary to volume contraction. Resolved. Plan: Maintain D5 with 2 A of bicarb to be run at 125 mL an hour. Follow-up cultures. Repeat BMP this afternoon. Wean FiO2 and vasopressors. Continue to monitor renal function and urine output. Potassium being replaced.
[2021-06-17 10:26] LABS: Anisocytosis Slight; Basophils % (A) 0 %; Eosinophils # (A) 0.1 k/uL (0-0.7); Eosinophils % (A) 0 %; HCT 32.7 % (34.0-46.0); Hypochromasia Slight; Lymphocytes # (A) 1.1 k/uL (1.0-4.8); Lymphocytes % (A) 7 %; MCH 35.1 pg (25.0-35.0); MCHC 33.7 g/dL (31.0-37.0); MCV 103.9 fL (80.0-100.0); Macrocytosis Moderate; Mean Platelet Volume 9.5; Monocytes # (A) 0.3 k/uL (0-1.0); Monocytes % (A) 2 %; Neutrophils # (A) 14.4 k/uL (1.3-7.7); Neutrophils % (A) 90 %; Platelet Count 142 k/uL (150-450); Poikilocytosis Moderate; RBC 3.15 m/uL (3.80-5.40); RDW 17.3 % (11.5-15.5); WBC 15.9 k/uL (3.8-10.6)
--- NOTE | 2021-06-17 10:33 | P.PN ---
Subjective Progress Note Date: 06/17/21 56-year-old female patient, a [facility] resident, presented to the emergency department with unresponsiveness. She had altered mentation above and beyond her baseline. I've taken care of this patient approximately a month ago when she came in to the ICU with septic shock secondary to E. coli UTI and sepsis. During this time around, the patient was profoundly hypotensive. She had significant metabolic disturbances and she was also in acute kidney injury. For now, her white cell count is at 18.4. Hemoglobin is at 14.2. She has a platelet count of 399, INR of 1.7 with a PT of 16.9, sodium of 154 with a serum bicarb of 18 and an anion gap of 19 with a potassium level of 5.7, glucose of 206, lactic acid level was quite elevated at 5, troponin of 0.4, abnormal AST of 238, ALT of 128, and the patient's urinalysis was positive only for Proteus. COVID-19 testing was negative. Chest x-ray shows chronic interstitial changes bilaterally consistent with previous history of bibasilar pulmonary fibrosis. The patient was quite hypotensive. The patient was started on pressors. The patient was intubated and placed on a mechanical ventilator in the burst department. She received a total of 2 L of normal saline and currently she is on half normal saline running at 150 mL an hour. She is on a mechanical ventilator on assist control mode at the rate of 14 with a tidal volume of 400 and FiO2 of 5% and a PEEP of 5. Blood gas from today showed a pH of 7.33 with a pCO2 of 33 and pO2 of 146. She is cold and clammy and she has multiple skin lower extremities bilaterally. Urine output is low however is gradually improving. No other history is available. She'll have a history of schiz oaffective disorder. Previous echocardiogram has shown a preserved LV function with an ejection fraction of 55% based on echocardiogram that was done in February 2021. Cardiac rhythm is sinus.. The patient was given a triple lumen catheter in the right IJ. She doesn't have an arterial line for now. She is currently operable for which is running at 30 mcg/kg per minute. She is on norepinephrine infusion at 0.2 mcg/kg per minute. On 06/17/2021, the patient is being seen for a follow-up. This morning, the patient remains intubated on a mechanical ventilator. She remains sedated on propofol is being gradually weaned off that as the patient's underlying mental status. For now, probable running at 15 mcg/kg per minute. She remains deeply sedated and very responsive to painful stimulation. The patient is on a mechanical ventilator. She is an assist-control mode of mechanical ventilation at the rate of 26 with a tidal volume of 400 and FiO2 of 70% with a PEEP of 5. The chest x-ray still showing coarse interstitial infiltrates bilaterally. Note that the patient has underlying pulmonary fibrosis and chronic interstitial changes bilaterally. The blood gases from today showing a pH of 7.37 with a pCO2 of 36 and pO2 of 200 and based on that the FiO2 will be weaned off. This was done and FiO2 of 100%. Meanwhile, hemodynamically, the patient remains hypotensive. Norepinephrine infusion is running at 0.14 mcg/kg per minute. The patient is also on a bicarb infusion running at 1 25 mL an hour. The patient grew gram-positive cocci in clumps clusters and her blood 2 blood cultures and vancomycin was added overnight. She remains on IV cefepime. She is afebrile. Urine output is improved and currently she is producing urine output in order of 6200 mL an hour. Ultrasound the kidneys showed no evidence of any hydronephrosis. White cell count of 18 with a hemoglobin of 11.1.Creatinine is down to 2.9 with a mean of 74. Sodium level is down to 149. Potassium level is down to 3.2. She has a component of non-anion gap metabolic acidosis. Serum bicarb is at 19 with a gap of 12. AST is 592, ALT is 481, alkaline phosphatase is 51. Troponin was 0.4 and 0.1 respectively. COVID-19 testing showed negative COVID-19 infection at this point in time. She has a triple lumen catheter in the right IJ. An arterial line was also established in the right femoral artery. Another issue is that the patient has history of paroxysmal atrial fibrillation. During this current admission, and overnight the patient developed A. fib with RVR. The patient was started on amiodarone per protocol and currently she is on amiodarone at 0.5 mg per minute. She converted back into normal sinus rhythm. Anticoagulation will be initiated with Eliquis. Objective - Vital Signs Vital signs: Vital Signs Temp 98.9 F 06/17/21 08:00 Pulse 81 06/17/21 10:00 Resp 26 H 06/17/21 10:00 BP 97/66 06/17/21 10:00 Pulse Ox 99 06/17/21 10:00 Intake & Output 06/16/21 06/17/21 06/17/21 18:59 06:59 18:59 Intake Total 3714.000 1968.479 434.364 Output Total 950 750 200 Balance 2764.000 1218.479 234.364 Weight 100.7 kg Intake: IV 3650 1625 375 0.45 1650 0.9 2000 Bicarb 1625 375 Intake, IV Titration 64.000 343.479 59.364 Amount Norepinephrine 32 mg In 64.000 140.045 Sodium Chloride 0.9% 218 ml @ 0.05 MCG/KG/MIN 2. 126 mls/hr IV .Q24H [facility] Rx#:[id number] propofoL 1,000 mg In 203.434 59.364 Empty Bag 1 bag @ Titrate IV .Q0M [facility] Rx#: [id number] Output: Urine 950 750 200 Other: Voiding Method Indwelling Catheter Indwelling Catheter Indwelling Catheter ABP, PAP, CO, CI - Last Documented Arterial Blood Pressure 110/58 - Exam Gen. appearance, sedated, comfortable no acute distress. She is intubated on a mechanical ventilator. Orogastric and orotracheal tube are both in place. Head exam was generally normal. There was no scleral icterus or corneal arcus. Mucous membranes were moist. Neck was supple and without jugular venous distension, thyromegaly, or carotid bruits. Carotids were easily palpable bilaterally. There was no adenopathy. Lungs were clear to auscultation and percussion, and with normal diaphragmatic excursion. No wheezes or rales were noted. Cardiac exam revealed the PMI to be normally situated and sized. The rhythm was regular and no extrasystoles were noted during several minutes of auscultation. The first and second heart sounds were normal and physiologic splitting of the second heart sound was noted. There were no murmurs, rubs, clicks, or gallops. Abdominal exam revealed normal bowel sounds. The abdomen was soft, non-tender, and without masses, organomegaly, or appreciable enlargement of the abdominal aorta. Examination of the extremities revealed v weak radial, femoral and pedal pulses. There was no cyanosis, clubbing or edema. Diminished pulses in all 4 extremities and the patient has been cold and clammy. Examination of the skin revealed no evidence of significant rashes, suspicious appearing nevi or other concerning lesions. Neurologically lethargic yet arousable. No focal logical deficits. Pupils are equal and reactive to light. No facial asymmetry. No neck stiffness. No nystagmus. No clonus. Motor function is reduced in all 4 extremities and the patient has global weakness. Sensory cannot be adequately assessed. Reflexes equal and symmetrical. - Labs CBC & Chem 7: 06/17/21 04:10 06/17/21 04:10 Labs: Abnormal Lab Results - Last 24 Hours (Table) 06/16/21 06/16/21 06/17/21 Range/Units 15:00 23:56 04:10 WBC 18.0 H (3.8-10.6) k/uL RBC 3.31 L (3.80-5.40) m/uL Hgb 11.1 L D (11.4-16.0) gm/dL MCV 104.0 H (80.0-100.0) fL RDW 17.4 H (11.5-15.5) % Neutrophils # 16.0 H (1.3-7.7) k/uL ABG pO2 (83-108) mmHg ABG O2 Saturation (94-97) % Sodium 151 H (137-145) mmol/L Potassium (3.5-5.1) mmol/L Chloride 126 H (98-107) mmol/L Carbon Dioxide 11 L (22-30) mmol/L BUN 79 H (7-17) mg/dL Creatinine 3.34 H (0.52-1.04) mg/dL Glucose 167 H (74-99) mg/dL POC Glucose (mg/dL) 159 H (75-99) mg/dL Calcium 8.0 L (8.4-10.2) mg/dL AST (14-36) U/L ALT (4-34) U/L Albumin (3.5-5.0) g/dL 06/17/21 06/17/21 06/17/21 Range/Units 04:10 04:41 05:57 WBC (3.8-10.6) k/uL RBC (3.80-5.40) m/uL Hgb (11.4-16.0) gm/dL MCV (80.0-100.0) fL RDW (11.5-15.5) % Neutrophils # (1.3-7.7) k/uL ABG pO2 200 H (83-108) mmHg ABG O2 Saturation 100.0 H (94-97) % Sodium 149 H (137-145) mmol/L Potassium 3.2 L (3.5-5.1) mmol/L Chloride 118 H (98-107) mmol/L Carbon Dioxide 19 L (22-30) mmol/L BUN 74 H (7-17) mg/dL Creatinine 2.90 H (0.52-1.04) mg/dL Glucose 192 H (74-99) mg/dL POC Glucose (mg/dL) 154 H (75-99) mg/dL Calcium 7.6 L (8.4-10.2) mg/dL AST 592 H (14-36) U/L ALT 481 H (4-34) U/L Albumin 2.7 L (3.5-5.0) g/dL Microbiology - Last 24 Hours (Table) 06/16/21 03:40 Blood Culture Gram Stain - Preliminary Blood 06/16/21 03:05 Blood Culture Gram Stain - Preliminary Blood 06/16/21 03:40 Blood Culture - Final Blood 06/16/21 03:05 Blood Culture - Final Blood 06/16/21 02:10 Gram Stain - Preliminary Sputum Sputum Culture - Preliminary Assessment and Plan Plan: 1 Septic shock currently under investigation. The patient has gram-positive cocci in clusters and the blood. Consider staphylococcal versus enterococcal septicemia. The patient is currently on IV fluids and the patient is being suspect IV bicarbonate infusion the patient is also on pressors and norepinephrine is running at 0.1 for macrovascular kilogram per minute. Antibiotic coverage was modified and vancomycin was added based on the gram- positive cocci in the blood. The patient remains on Zosyn and Levaquin as broad-spectrum antibiotic coverage. 2 acute hypoxic respiratory failure secondary to above, oxygenation is stable. Chest x-ray was reviewed. Blood gases was reviewed. 3 altered mentation secondary to above, currently intubated on a mechanical ventilator on propofol. 4 acute kidney injury secondary to above, the patient is showing improvement in urine output in the creatinine is down to 2.9 5 acute hyperchloremic hypernatremia, likely secondary to intravascular volume depletion and dehydration, will add free water in the NG 6 history of recurrent UTIs most recent hospitalization was for E. coli UTI and sepsis 7 history of fall with a previous left A. fib/tib fracture, managed conservatively by orthopedic surgery with interval 8 history of paroxysmal atrial fibrillation, normal cardiac rhythm is sinus rhythm, currently on amiodarone drip at 0.5 mg per minute 9 obesity with a BMI of 37 10 history of schizoaffective disorder 11 lactic acidosis, improving 12 non-anion gap metabolic acidosis, improving and the bicarb infusion 13 transaminitis 14 Troponin leak 15 pulmonary fibrosis along with some honeycombing and traction bronchiectasis, seen on old CAT scans of the chest. Meanwhile, COVID-19 testing was negative. 16 Intermediate resident with a poor baseline performance and functional status plan continue bicarb infusion at the rate of 125 mL an hour Continue vancomycin and Zosyn and drop the Levaquin Follow-up blood cultures Continue vent support Drop down the FiO2 gradually to maintain a saturation above 90%. I would suggest putting her down to 50% of this point in time Wean off pressors to maintain a mean artery pressure above 65 Start the patient and therapeutic for nutritional support and dietary co nsultation be obtained Continue amiodarone loading with 0.5 mg per minute. Current rhythm is sinus The patient on Eliquis 5 mg by mouth twice a day stop the heparin subcu for deep prophylaxis Add free water through the NG 250 mL every 4 hours and monitor the sodium levels Condition is critical we'll continue to follow make further recommendations based on her progress. Will update the family on her condition. We'll establish a CODE STATUS. There is a critically care evaluation that was done more than 30 minutes. Time with Patient: Greater than 30
[2021-06-17 10:40] LABS: INR 1.7 (<1.2); Partial Thromboplastin Time 25.8 sec (22.0-30.0)
--- NOTE | 2021-06-17 11:15 | P.PN ---
Subjective Progress Note Date: 06/17/21 HISTORY OF PRESENT ILLNESS: This is a 56-year-old female with a past medical history significant for schizophrenia, hypothyroidism, and paraoxysmal atrial fibrillation. Patient does not follow with a security technician but was seen in consultation by Dr. Hebert in February 2021. We have been asked to see the patient in consultation for afib with RVR. Patient was apparently found unresponsive at the [facility] where she resides. Patient was brought to the hospital where she was found to be in septic shock. Patient was intubated in the emergency room. She was hypotensive and placed on vasopressor support. Patient examined at the bedside in the intensive care unit. Patient remains intubated. Telemetry reveals sinus tachycardia. EKG on admission reviewed by Dr. Shrestha revealing sinus tachycardia. Chest x-ray on admission reveals pulmonary edema slightly increased compared to last exam but improvement in pleural effusions. Laboratory data reveals WBC 18.4. Hemoglobin 14.2. Platelet count 399. Sodium 154. Potassium 5.7. BUN 83. Creatinine 3.65. Lactic acid 5.0. Repeat 1.4. Troponin 0.148. 0.423. Echocardiogram completed in February 2021 revealed ejection fraction 55-60%, trace aortic regurgitation, mild to moderate tricuspid regurgitation, and trace mitral regurgitation, with mild to moderate pulmonary hypertension. Current home cardiac medications include aspirin 81 mg daily. 06/17/2021 Patient examined this morning at the bedside in the ICU. She remains intubated on mechanical ventilation. She remains on vasopressors. Patient went into afib with RVR yesterday. She was started on IV amiodarone. She is currently maintaining sinus mechanism on telemetry. Echocardiogram completed revealed ejection fraction 60-65%, mild tricuspid regurgitation, moderate pulmonary hypertension. PHYSICAL EXAM: VITAL SIGNS: Reviewed. GENERAL: Well-developed in no acute distress. HEENT: Head is normocephalic. Pupils are equal, round. Sclerae anicteric. Mucous membranes of the mouth are moist. Neck supple. No JVD or thyromegaly LUNGS: Respirations even and unlabored. Lungs diminished to auscultation bilaterally. HEART: Regular rate and rhythm. S1 and S2 heard. ABDOMEN: Soft. Nondistended. Nontender. EXTREMITIES: No clubbing or cyanosis. Peripheral pulses intact. No lower extremity edema NEUROLOGIC: Sedated on mechanical ventilation ASSESSMENT: Septic shock, present on admission Abnormal troponins, secondary to above, not suggestive of acute coronary syndrome Acute hypoxic respiratory failure requiring mechanical ventilation Acute renal failure Lactic acidosis Hypernatremia Hyperkalemia Elevated LFTs Paroxysmal atrial fibrillation, not on anticoagulation on an outpatient basis Hypothyroidism Schizophrenia PLAN: Wean vasopressors as tolerated Continue amiodarone drip at 0.5 mg/min Initiate IV heparin infusion for thromboembolic protection secondary to hx of afib Further recommendations pending patient course Nurse practitioner note has been reviewed by physician. Signing provider agrees with the documented findings, assessment, and plan of care. Objective - Vital Signs Vital signs: Vital Signs Temp 98.9 F 06/17/21 08:00 Pulse 81 06/17/21 10:00 Resp 26 H 06/17/21 10:00 BP 97/66 06/17/21 10:00 Pulse Ox 99 06/17/21 10:00 Intake & Output 06/16/21 06/17/21 06/17/21 18:59 06:59 18:59 Intake Total 3714.000 1968.479 434.364 Output Total 950 750 200 Balance 2764.000 1218.479 234.364 Weight 100.7 kg 100.7 kg Intake: IV 3650 1625 375 0.45 1650 0.9 2000 Bicarb 1625 375 Intake, IV Titration 64.000 343.479 59.364 Amount Norepinephrine 32 mg In 64.000 140.045 Sodium Chloride 0.9% 218 ml @ 0.05 MCG/KG/MIN 2. 126 mls/hr IV .Q24H [facility] Rx#:[id number] propofoL 1,000 mg In 203.434 59.364 Empty Bag 1 bag @ Titrate IV .Q0M [facility] Rx#: [id number] Output: Urine 950 750 200 Other: Voiding Method Indwelling Catheter Indwelling Catheter Indwelling Catheter ABP, PAP, CO, CI - Last Documented Arterial Blood Pressure 110/58 - Labs CBC & Chem 7: 06/17/21 10:15 06/17/21 04:10 Labs: Abnormal Lab Results - Last 24 Hours (Table) 06/16/21 06/16/21 06/17/21 Range/Units 15:00 23:56 04:10 WBC 18.0 H (3.8-10.6) k/uL RBC 3.31 L (3.80-5.40) m/uL Hgb 11.1 L D (11.4-16.0) gm/dL Hct (34.0-46.0) % MCV 104.0 H (80.0-100.0) fL MCH (25.0-35.0) pg RDW 17.4 H (11.5-15.5) % Plt Count (150-450) k/uL Neutrophils # 16.0 H (1.3-7.7) k/uL PT (9.0-12.0) sec INR (<1.2) ABG pO2 (83-108) mmHg ABG O2 Saturation (94-97) % Sodium 151 H (137-145) mmol/L Potassium (3.5-5.1) mmol/L Chloride 126 H (98-107) mmol/L Carbon Dioxide 11 L (22-30) mmol/L BUN 79 H (7-17) mg/dL Creatinine 3.34 H (0.52-1.04) mg/dL Glucose 167 H (74-99) mg/dL POC Glucose (mg/dL) 159 H (75-99) mg/dL Calcium 8.0 L (8.4-10.2) mg/dL AST (14-36) U/L ALT (4-34) U/L Albumin (3.5-5.0) g/dL 06/17/21 06/17/21 06/17/21 Range/Units 04:10 04:41 05:57 WBC (3.8-10.6) k/uL RBC (3.80-5.40) m/uL Hgb (11.4-16.0) gm/dL Hct (34.0-46.0) % MCV (80.0-100.0) fL MCH (25.0-35.0) pg RDW (11.5-15.5) % Plt Count (150-450) k/uL Neutrophils # (1.3-7.7) k/uL PT (9.0-12.0) sec INR (<1.2) ABG pO2 200 H (83-108) mmHg ABG O2 Saturation 100.0 H (94-97) % Sodium 149 H (137-145) mmol/L Potassium 3.2 L (3.5-5.1) mmol/L Chloride 118 H (98-107) mmol/L Carbon Dioxide 19 L (22-30) mmol/L BUN 74 H (7-17) mg/dL Creatinine 2.90 H (0.52-1.04) mg/dL Glucose 192 H (74-99) mg/dL POC Glucose (mg/dL) 154 H (75-99) mg/dL Calcium 7.6 L (8.4-10.2) mg/dL AST 592 H (14-36) U/L ALT 481 H (4-34) U/L Albumin 2.7 L (3.5-5.0) g/dL 06/17/21 06/17/21 Range/Units 10:15 10:15 WBC 15.9 H (3.8-10.6) k/uL RBC 3.15 L (3.80-5.40) m/uL Hgb 11.0 L (11.4-16.0) gm/dL Hct 32.7 L (34.0-46.0) % MCV 103.9 H (80.0-100.0) fL MCH 35.1 H (25.0-35.0) pg RDW 17.3 H (11.5-15.5) % Plt Count 142 L (150-450) k/uL Neutrophils # 14.4 H (1.3-7.7) k/uL PT 17.0 H (9.0-12.0) sec INR 1.7 H (<1.2) ABG pO2 (83-108) mmHg ABG O2 Saturation (94-97) % Sodium (137-145) mmol/L Potassium (3.5-5.1) mmol/L Chloride (98-107) mmol/L Carbon Dioxide (22-30) mmol/L BUN (7-17) mg/dL Creatinine (0.52-1.04) mg/dL Glucose (74-99) mg/dL POC Glucose (mg/dL) (75-99) mg/dL Calcium (8.4-10.2) mg/dL AST (14-36) U/L ALT (4-34) U/L Albumin (3.5-5.0) g/dL Microbiology - Last 24 Hours (Table) 06/16/21 03:40 Blood Culture Gram Stain - Preliminary Blood 06/16/21 03:05 Blood Culture Gram Stain - Preliminary Blood 06/16/21 03:40 Blood Culture - Final Blood 06/16/21 03:05 Blood Culture - Final Blood 06/16/21 02:10 Gram Stain - Preliminary Sputum Sputum Culture - Preliminary
[2021-06-17] MEDS: AMIODARONE 450 MG in DEXTROSE 5% IN WATER 250 ML IV SCH ×4 (11:33→23:49)
[2021-06-17 11:35] LABS: Glucose,Whole Blood 174 mg/dL (75-99)
[2021-06-17] MEDS: APIXABAN 5 MG TAB PO SCH ×2 (11:57→19:48)
--- NOTE | 2021-06-17 12:38 | P.PN ---
Subjective Progress Note Date: 06/17/21 The patient remains intubated on ventilator and continues to be on IV Propofol and norepinephrine. Per the nurse no seizure activity noted overnight or today. She remains about the same since yesterday. Objective - Vital Signs Vital signs: Vital Signs Temp 98.9 F 06/17/21 08:00 Pulse 81 06/17/21 10:00 Resp 26 H 06/17/21 10:00 BP 97/66 06/17/21 10:00 Pulse Ox 99 06/17/21 10:00 Intake & Output 06/16/21 06/17/21 06/17/21 18:59 06:59 18:59 Intake Total 3714.000 1968.479 434.364 Output Total 950 750 200 Balance 2764.000 1218.479 234.364 Weight 100.7 kg Intake: IV 3650 1625 375 0.45 1650 0.9 2000 Bicarb 1625 375 Intake, IV Titration 64.000 343.479 59.364 Amount Norepinephrine 32 mg In 64.000 140.045 Sodium Chloride 0.9% 218 ml @ 0.05 MCG/KG/MIN 2. 126 mls/hr IV .Q24H NIESHA Rx#:[id number] propofoL 1,000 mg In 203.434 59.364 Empty Bag 1 bag @ Titrate IV .Q0M NIESHA Rx#: [id number] Output: Urine 950 750 200 Other: Voiding Method Indwelling Catheter Indwelling Catheter Indwelling Catheter ABP, PAP, CO, CI - Last Documented Arterial Blood Pressure 110/58 - Exam GENERAL: The patient is lying in bed and does not seem in acute distress. HENT: supple neck. LUNG: Clear to auscultation bilaterally no wheezing noted throughout. Not lab ored breathing. Intubated on ventilator. NEUROLOGICAL: Limited since on IV propofol 15mcg/kg/min and intubated on vent. Higher mental function: The patient is comatose GCS 3, (E1, VT1, M1). Non-res ponsive and not following command. Cranial nerves: I had to manually opens the eyes. Primary gaze is midline. The pupils are round, equal (2mm) and reactive to light. No facial weakness. Is breathing over the vent. Has positive gag Motor: The strength is limited in assessment because of her condition but not moving any extremities even with painful stimuli. Has decrease tone throughout. Normal bulk. Cerebellum: Could not assess. Sensation: Could not assess light touch and not withdrawing to painful stimuli. Reflexes (right/left): 1+ throughout. Plantars are mute bilaterally. FURTHER WORK-UP: ammonia <9. Blood culture: Grame positive cocci in clusters - Labs CBC & Chem 7: 06/17/21 10:15 06/17/21 04:10 Labs: Abnormal Lab Results - Last 24 Hours (Table) 06/16/21 06/16/21 06/17/21 Range/Units 15:00 23:56 04:10 WBC 18.0 H (3.8-10.6) k/uL RBC 3.31 L (3.80-5.40) m/uL Hgb 11.1 L D (11.4-16.0) gm/dL Hct (34.0-46.0) % MCV 104.0 H (80.0-100.0) fL MCH (25.0-35.0) pg RDW 17.4 H (11.5-15.5) % Plt Count (150-450) k/uL Neutrophils # 16.0 H (1.3-7.7) k/uL ABG pO2 (83-108) mmHg ABG O2 Saturation (94-97) % Sodium 151 H (137-145) mmol/L Potassium (3.5-5.1) mmol/L Chloride 126 H (98-107) mmol/L Carbon Dioxide 11 L (22-30) mmol/L BUN 79 H (7-17) mg/dL Creatinine 3.34 H (0.52-1.04) mg/dL Glucose 167 H (74-99) mg/dL POC Glucose (mg/dL) 159 H (75-99) mg/dL Calcium 8.0 L (8.4-10.2) mg/dL AST (14-36) U/L ALT (4-34) U/L Albumin (3.5-5.0) g/dL 06/17/21 06/17/21 06/17/21 Range/Units 04:10 04:41 05:57 WBC (3.8-10.6) k/uL RBC (3.80-5.40) m/uL Hgb (11.4-16.0) gm/dL Hct (34.0-46.0) % MCV (80.0-100.0) fL MCH (25.0-35.0) pg RDW (11.5-15.5) % Plt Count (150-450) k/uL Neutrophils # (1.3-7.7) k/uL ABG pO2 200 H (83-108) mmHg ABG O2 Saturation 100.0 H (94-97) % Sodium 149 H (137-145) mmol/L Potassium 3.2 L (3.5-5.1) mmol/L Chloride 118 H (98-107) mmol/L Carbon Dioxide 19 L (22-30) mmol/L BUN 74 H (7-17) mg/dL Creatinine 2.90 H (0.52-1.04) mg/dL Glucose 192 H (74-99) mg/dL POC Glucose (mg/dL) 154 H (75-99) mg/dL Calcium 7.6 L (8.4-10.2) mg/dL AST 592 H (14-36) U/L ALT 481 H (4-34) U/L Albumin 2.7 L (3.5-5.0) g/dL 06/17/21 Range/Units 10:15 WBC 15.9 H (3.8-10.6) k/uL RBC 3.15 L (3.80-5.40) m/uL Hgb 11.0 L (11.4-16.0) gm/dL Hct 32.7 L (34.0-46.0) % MCV 103.9 H (80.0-100.0) fL MCH 35.1 H (25.0-35.0) pg RDW 17.3 H (11.5-15.5) % Plt Count 142 L (150-450) k/uL Neutrophils # 14.4 H (1.3-7.7) k/uL ABG pO2 (83-108) mmHg ABG O2 Saturation (94-97) % Sodium (137-145) mmol/L Potassium (3.5-5.1) mmol/L Chloride (98-107) mmol/L Carbon Dioxide (22-30) mmol/L BUN (7-17) mg/dL Creatinine (0.52-1.04) mg/dL Glucose (74-99) mg/dL POC Glucose (mg/dL) (75-99) mg/dL Calcium (8.4-10.2) mg/dL AST (14-36) U/L ALT (4-34) U/L Albumin (3.5-5.0) g/dL Microbiology - Last 24 Hours (Table) 06/16/21 03:40 Blood Culture Gram Stain - Preliminary Blood 06/16/21 03:05 Blood Culture Gram Stain - Preliminary Blood 06/16/21 03:40 Blood Culture - Final Blood 06/16/21 03:05 Blood Culture - Final Blood 06/16/21 02:10 Gram Stain - Preliminary Sputum Sputum Culture - Preliminary Assessment and Plan Assessment: Altered mental status due to multifactorial: septic encephalopathy: underinvestigation and component of toxic-metabolic encephalopathy (elevated LFT's, hypernatremia, and acute on chronic kidney insuffiency) and medication effect (is on IV propofol) High suspicious of seizure on 04/2021 (admission) and was transferred to [facility] for halfway EEG and further work-up. Septic shock on levo Acute chronic kidney insufficiency Transaminitis Hypernatremia likely due to dehydration Troponin leak History of recurrent urinary tract infection History of fall History of proximal atrial fibrillation Schizoaffective disorder Plan: * I placed the patient on Keppra IV 500mg every 12 hours for her seizure was suspected in April 2021 for now (she was on Depakote but on hold since has elevated LFT's and once stable will consider starting patient home medication of Depakote 500mg 1 tab bid (was being used for mood stabilizer and has antiepileptic effect as well). I spoke with a nurse and will try to obtain records of her ambulatory EEG and further investigation she had and Caridad Montoya. We'll try to find out what medication she was discharged with. * Possibly consider ID consult. * Cardiology is on board * Nephrology team is on board * We'll defer further work-up to the to the ICU in the primary team. * Per ICU nurse, he got a hold of her son and he stated if patient does not improve within 1-2 days he wants to withdraw care. Condition: Is very guarded. The plan was discussed with the patient ICU nurse. John Laws M.D. Neuro-hospitalist
--- NOTE | 2021-06-17 13:55 | CDI ---
Documentation Clarification Form Date: 06/17/2021 01:41:39 PM From: Makayla Pan CCS, CCDS Admit Date: 06/16/2021 03:30:00 AM Patient Name: Alva Angel Visit Number: [id number] Discharge Date: ATTENTION: The Clinical Documentation Specialists (CDI) and [facility] Coding Staff appreciate your assistance in clarifying documentation. Please respond to the clarification below the line at the bottom and electronically sign. The CDI & [facility] Coding staff will review the response and follow-up if needed. Please note: Queries are made part of the Legal Health Record. If you have any questions, please contact the author of this message via ITS. Dr. John Laws: Chronic Kidney Insufficiency is documented in the 06/16 Neurology Consult and the subsequent 06/17 Neurology Progress Note. CKD or insufficiency is not documented by Nephrology who was consulted for MOOKIE with ATN. Additional clarification regarding the stage of CKD is requested. History/Risk Factors per the 06/16 History & Physical: Atrial Fibrillation, Bibasilar Fibrotic Lung Changes, UTI, Cardiac Valve Replacement, Schizoaffective disorder, Smoker, Alcohol Abuse. Clinical Indicators: Presented to the ED on 06/16 via EMS with Altered Mental Status, Unresponsiveness, Fever, Confusion, Hypotension and Weakness. ED Clinical Impression: Dehydration, Sepsis, Weakness, UTI, Elevated troponin, Delirium due to general medical condition, Atrial fibrillation with RVR, Acute kidney injury, Acute pulmonary edema, Fever. Current BUN/CR/GFR (06/16): 83/3.65/13 - 17 Historical GFR: No previous to compare. 06/16 Kidney/Renal/Bladder US: No evidence of hydronephrosis. Treatment: Intubated in ED, Vent, Central Line, IV Versed, IV Na Cl 500 mls @ 1000 mls/hr q35M, IV Quelicin, IV Ibuprofen x1, IV Levaquin x1, IV Zosyn x1, IV Na Cl 2,000 mls @ 999 mls/hr q2H x2, IV Narcan, IV Levophed, INH Duoneb, IV Propofol, IV Diprivan, IV Protonix, Heparin sq, IV Synthroid, IV Dextrose/Water w/Amiodarone, IV Tylenol, IV Benadryl, IV Keppra, IV Na Bicarb 150 mls x1 Nephrology Consult: MOOKIE secondary to ATN secondary to Sepsis. Septic Shock on Levophed. Acute Hypoxic Respiratory Failure, Hypernatremia, Hyperkalemia. Metabolic Acidosis and Lactic Acidosis, Hypercalcemia. Please clarify the stage of the CKD, if known: [ ] CKD Stage 4 (GFR 15-29) [ ] CKD Stage 5 (GFR <15) [ ] CKD Ruled Out [ ] Other, please specify [ ] Unable to determine Unable to determine and will defer to nephrology since it is felt more due to acute kidney injury. (Template Last revised: October 2020) MTDD
[2021-06-17 16:38] LABS: Calcium 7.5 mg/dL (8.4-10.2); Potassium 3.1 mmol/L (3.5-5.1)
[2021-06-17] MEDS ORDERED: Potassium Replacement Protocol 1 EACH MISC MISCELLANE PRN (17:02)
[2021-06-17] MEDS: POTASSIUM CHLORIDE 20 MEQ in WATER FOR INJECTION 1 100ML.BAG IVPB SCH ×2 (17:55→19:40)
[2021-06-17 18:26] LABS: Glucose,Whole Blood 85 mg/dL (75-99)
--- NOTE | 2021-06-17 18:55 | P.PN ---
Progress Note - Text Progress Note Date: 06/17/21 Chief Complaint: Decreased responsiveness History of presenting complaint: This is a 56-year-old patient, follows with Dr. Beltrán at the [facility]. Patient was recently admitted to the hospital in May 05 and transferred on May 10 [facility] [place].Admitted with UTI from cystitis with sepsis, bilateral pneumonia, septic shock, acute kidney injury with ATN.IV fluids. IV ceftriaxone. Admitted to the ICU. The transfer was done for continuous EEG monitoring. On this occasion patient is brought to with unresponsiveness. She was hypotensive. Acute kidney injury. Some abnormal liver enzymes, UA was positive. Patient was negative for COVID-19. Patient was intubated and put on the mechanical ventilator. Has been getting IV fluid boluses. This morning she has received about 4 L of fluids total. Has been in atrial fibrillation. Has or G-tube. Drips include we will affect, propofol, normal saline. FiO2 100% with a PEEP of 5. Febrile Admitted with acute metabolic/toxic encephalopathy from sepsis, septic shock, pneumonia, acute kidney injury likely from ATN, atrial flutter fibrillation rate uncontrolled, metabolic acidosis. June 09: ICU: On the ventilator with FiO2 50 PEEP of 5. Drips include norepinephrine and propofol. Atrial fibrillation rate better controlled. On IV amiodarone. Controlled on IV amiodarone. Blood cultures growing gram-positive cocci. Antibiotics changed to IV Zosyn and vancomycin. Fever is started to come down Review of systems:patient intubated Active Medications Albuterol/Ipratropium (Ipratropium-Albuterol 3 Ml Neb) 3 ml INHALATION RT-QID [facility] Last Admin: 06/17/21 16:13 Dose: 3 ml Documented by: Apixaban (Apixaban 5 Mg Tab) 5 mg PO BID NIESHA; Protocol Last Admin: 06/17/21 11:57 Dose: 5 mg Documented by: Chlorhexidine Gluconate (Chlorhexidine Gluconate 15 Ml Cup) 15 ml MUCOUS MEM BID NIESHA Last Admin: 06/17/21 09:10 Dose: 15 ml Documented by: Norepinephrine Bitartrate 32 (mg/ Sodium Chloride) 250 mls @ 2.126 mls/hr IV .Q24H NIESHA; Protocol Last Titration: 06/17/21 17:45 Dose: 0.1 mcg/kg/min, 4.252 mls/hr Documented by: Propofol 1,000 mg/ IV Solution 100 mls @ 0 mls/hr IV .Q0M NIESHA; Protocol Last Titration: 06/17/21 12:02 Dose: 0 mcg/kg/min, 0 mls/hr Documented by: Piperacillin Sod/Tazobactam (Sod 3.375 gm/ Sodium Chloride) 100 mls @ 25 mls/hr IVPB Q12HR NIESHA Last Admin: 06/17/21 09:10 Dose: 25 mls/hr Documented by: Levetiracetam 500 mg/ Sodium (Chloride) 105 mls @ 400 mls/hr IVPB Q12HR NIESHA Last Admin: 06/17/21 09:10 Dose: 400 mls/hr Documented by: Sodium Bicarbonate 100 ml/ (Dextrose/Water) 1,100 mls @ 125 mls/hr IV .Q8H48M NIESHA Last Admin: 06/17/21 11:35 Dose: 125 mls/hr Documented by: Amiodarone HCl 450 mg/ (Dextrose/Water) 250 mls @ 16.667 mls/hr IV .Q15H NIESHA; Protocol Stop: 06/18/21 05:14 Last Admin: 06/17/21 11:33 Dose: 0.5 mg/min, 16.667 mls/hr Documented by: Vancomycin HCl 1,500 mg/ (Sodium Chloride) 250 mls @ 125 mls/hr IVPB ONCE ONE Stop: 06/18/21 05:59 Potassium Chloride 20 meq/ IV (Solution) 100 mls @ 50 mls/hr IVPB Q2H NIESHA; Protocol Stop: 06/17/21 21:14 Last Admin: 06/17/21 17:55 Dose: 50 mls/hr Documented by: Insulin Aspart (Insulin Aspart (Novolog) 100 Unit/Ml Vial) 0 unit SQ Q6H NIESHA; Protocol Last Admin: 06/17/21 18:26 Dose: Not Given Documented by: Levothyroxine Sodium (Levothyroxine Ivp 100 Mcg/5 Ml Vial) 50 mcg IV Q48H NIESHA Last Admin: 06/16/21 11:57 Dose: 50 mcg Documented by: Midazolam HCl (Midazolam 1 Mg/Ml 5 Ml Vial) 5 mg IV ONCE PRN PRN Reason: Moderate Agitation Last Admin: 06/16/21 08:01 Dose: 5 mg Documented by: Miscellaneous Information (Vancom[place] Iv [place] 1 [place] [facility] each MISCELLANE DIRECTED PRN; Protocol PRN Reason: Per Protocol Miscellaneous Information (Potassium Replacement Protocol 1 [place] [facility] [place] 1 each MISCELLANE DAILY PRN; Protocol PRN Reason: Per Protocol Naloxone HCl (Naloxone 0.4 Mg/Ml 1 Ml Vial) 0.2 mg IV Q2M PRN PRN Reason: Opioid Reversal Pantoprazole Sodium (Pantoprazole 40 Mg/10 Ml Vial) 40 mg IV DAILY [facility] Last Admin: 06/17/21 09:10 Dose: 40 mg Documented by: Sodium Bicarbonate (Sodium Bicarbonate Tab 650 Mg Tab) 650 mg PO TID [facility] Last Admin: 06/17/21 15:10 Dose: 650 mg Documented by: Past medical history to include: Atrial fibrillation, bibasilar fibrotic lung changes with honeycombing, schizoaffective disorder, nicotine use, in February/2021 patient did have a left tibial plate to and left proximal fibular fracture Social history: ECF. Smoker, until recently. Marijuana use history of Family history: Could not be obtained. Physical examination: VITAL SIGNS: T-max 102.7 yesterday afternoon, afebrile today, 81, 26, 117/73, 96% GENERAL: Laying in bed, sedated EYES: Pupils equal. Conjunctiva normal. HEENT: External appearance of nose and ears normal, oral cavity mucous membranes. ET tube, OG-tube NECK: JVD unable to assess; masses not palpable. HEART: First and second heart sounds are normal; no edema. LUNGS: Respiratory rate increased; decreased breath sounds. ABDOMEN: Soft, nontender, liver spleen not palpable, no masses palpable. PSYCH: Unable to assess INVESTIGATIONS, reviewed in the clinical context: June 17: WBC 15.9 hemoglobin 11 platelets 142, sodium 149 potassium 3.2 (74 creatinine 2.90, bicarb 19 AST 592 ALT 481 Blood cultures growing: Coagulase negative staph WBC 18.4 hemoglobin 14.2 platelets 399, sodium 154 potassium 5.7 BUN 83 creatinine 3.65 lactic acid 5 AST 238 ALT 128 Troponin I 0.148, 0.4-3 EKG tracing personally reviewed by me-atrial flutter with 2 was 21 conduction Chest x-ray film personally reviewed by me-bilateral infiltrates/also some chronicity Previous testing: May 10: BUN 17 creatinine 0.93, AST/ALT both normal CT chest [02/24/2021] chronic parenchymal fibrotic changes greatest in the bases. With honeycombing. It is of groundglass opacities. 2-D echocardiogram: EF 55 have a 60%. [id number] tricuspid regurgitation. Some element of pulmonary hypertension Assessment and plan: -Acute/metabolic/toxic encephalopathy. From sepsis: Sodium respond -Possible pneumonia suspected gram-negative organism, patient has underlying also chronic fibrotic changes IV Zosyn -Positive blood cultures for coagulase-negative staph, possibility of contamination Continue with vancomycin -Chronic bilateral pulmonary fibrosis with honeycombing Bronchodilators. -Septic shock: Slow to respond On IV levo fed. IV fluids -Questionable seizure on last admission patient was transferred to [facility] [place] for further workup. Neurology's request records from [facility]. Started on IV Keppra -Acute kidney injury, likely from ATN from sepsis: Slow to respond Admission creatinine 3.65. Patient's creatinine was 0.93 on May 10 -Metabolic and lactic acidosis from renal failure/sepsis: Slow to respond IV bicarbonate drip -Persistent atrial flutter-fibrillation, rate better controlled IV amiodarone. Eliquis started today by cardiology. -Chronic pulmonary fibrosis especially at the bases with honeycombing -Schizoaffective disorder On Invega -COPD in a smoker DuoNeb. -Hypernatremia from free water deficit: Slow to respond IV fluids. Follow sodium -Hyperkalemia from acute kidney injury: Improved Hydrate patient. -Likely acute ischemic hepatitis from hypotension: Worsening. Follow-up LFTs. Patient is on IV amiodarone. -Troponin leak from hemodynamic mismatch and sepsis. Not a clinical picture of acute coronary syndrome Been followed by cardiology Patient remains on levo fed drip. Antibiotics changed to IV Zosyn and IV vancomycin. We'll keep a close eye renal function for the latter. Will take a decision after blood cultures are positive from contamination or actually the culprit for the infection itself. Hepatic function is worsening. At OG awake patient being on IV amiodarone is to continue the same for the present time. Continue with supportive care. Prognosis guarded. Follow labs closely.
[2021-06-17 23:49] LABS: Glucose,Whole Blood 133 mg/dL (75-99)
[2021-06-18] MEDS ORDERED: VANCOMYCIN 1,500 MG in SODIUM CHLORIDE 0.9% 250 ML IVPB ONE (04:00)
[2021-06-18 04:01] LABS: Anisocytosis Slight; Basophils % (A) 0 %; Eosinophils # (A) 0.1 k/uL (0-0.7); Eosinophils % (A) 0 %; HCT 32.2 % (34.0-46.0); HGB 10.7 gm/dL (11.4-16.0); Lymphocytes # (A) 0.8 k/uL (1.0-4.8); Lymphocytes % (A) 6 %; MCH 33.9 pg (25.0-35.0); MCHC 33.3 g/dL (31.0-37.0); MCV 101.8 fL (80.0-100.0); Macrocytosis Moderate; Mean Platelet Volume 10.3; Monocytes # (A) 0.3 k/uL (0-1.0); Monocytes % (A) 2 %; Neutrophils # (A) 12.6 k/uL (1.3-7.7); Neutrophils % (A) 91 %; Platelet Count 132 k/uL (150-450); Poikilocytosis Moderate; RBC 3.16 m/uL (3.80-5.40); RDW 17.9 % (11.5-15.5); WBC 13.8 k/uL (3.8-10.6)
[2021-06-18 04:32] LABS: INR 1.4 (<1.2)
[2021-06-18 04:33] LABS: Prothrombin Time 13.8 sec (9.0-12.0)
[2021-06-18 05:08] LABS: Albumin 2.4 g/dL (3.5-5.0); Calcium 7.8 mg/dL (8.4-10.2); Potassium 3.7 mmol/L (3.5-5.1); Total Protein 5.7 g/dL (6.3-8.2)
[2021-06-18 05:32] LABS: ABG Base Excess -0.6 mmol/L; ABG HCO3 23 mmol/L (21-25); ABG Oxygen Saturation 99.5 % (94-97); ABG PCO2 33 mmHg (35-45); ABG PH 7.46 (7.35-7.45); ABG PO2 117 mmHg (83-108); ABG TCO2 24 mmol/L (19-24); Allen Test Performed? Yes
[2021-06-18 06:10] LABS: Glucose,Whole Blood 166 mg/dL (75-99)
[2021-06-18] MEDS ORDERED: POTASSIUM CHLORIDE 20 MEQ in WATER FOR INJECTION 1 100ML.BAG IVPB ONE (06:12)
[2021-06-18] MEDS: NOREPINEPHRINE 32 MG in SODIUM CHLORIDE 0.9% 218 ML IV SCH (06:13)
[2021-06-18] MEDS: INSULIN ASPART (NovoLOG) 100 UNIT/ML VIAL SQ SCH ×3 (06:13→18:44)
[2021-06-18] MEDS: DEXTROSE 5% IN WATER 1,000 ML with SODIUM BICARB (1 MEQ/ML) 100 ML IV SCH (06:15)
[2021-06-18] MEDS ORDERED: AMIODARONE 450 MG in DEXTROSE 5% IN WATER 250 ML IV SCH ×4 (07:30→22:30)
[2021-06-18] MEDS: IPRATROPIUM-ALBUTEROL 3 ML NEB INHALATION SCH ×4 (07:34→20:40)
--- NOTE | 2021-06-18 07:48 | XR ---
EXAMINATION TYPE: XR chest 1V portable DATE OF EXAM: 06/18/2021 COMPARISON: Chest x-ray 06/17/2021 HISTORY: Intubated TECHNIQUE: Single frontal view of the chest is obtained. FINDINGS: Endotracheal tube and orogastric tube, right jugular central venous catheter are all again noted and show a similar appearance. Bilateral airspace disease persists. Some improvement in visual ization of the right hemidiaphragm is noted. No evident pneumothorax. There are overlying artifacts. IMPRESSION: Suspect some slight interval improvement in aeration. Correlate for pneumonia, edema, AR DS.
[2021-06-18] MEDS: PANTOPRAZOLE 40 MG/10 ML VIAL IV SCH (07:57)
[2021-06-18] MEDS: PIPERACILLIN-TAZOBACTAM 3.375 GM in SODIUM CHLORIDE 0.9% 100 ML IVPB SCH ×2 (07:57→16:47)
[2021-06-18] MEDS: APIXABAN 5 MG TAB PO SCH ×2 (07:58→19:50)
[2021-06-18] MEDS: AMIODARONE 200 MG TAB PO SCH ×2 (07:58→14:30)
[2021-06-18] MEDS: CHLORHEXIDINE GLUCONATE 15 ML CUP MUCOUS MEM SCH ×2 (07:59→19:50)
[2021-06-18] MEDS: levETIRAcetam IV 500 MG in SODIUM CHLORIDE 0.9% 100 ML IVPB SCH ×2 (08:02→19:50)
--- NOTE | 2021-06-18 08:17 | CDI ---
Documentation Clarification Form Date: 06/18/2021 08:15:42 AM From: Makayla Pan CCS, CCDS Admit Date: 06/16/2021 03:30:00 AM Patient Name: Alva Angel Visit Number: [id number] Discharge Date: ATTENTION: The Clinical Documentation Specialists (CDI) and [facility] Coding Staff appreciate your assistance in clarifying documentation. Please respond to the clarification below the line at the bottom and electronically sign. The CDI & [facility] Coding staff will review the response and follow-up if needed. Please note: Queries are made part of the Legal Health Record. If you have any questions, please contact the author of this message via ITS. Dr. Josh Garza: Chronic Kidney Insufficiency is documented in the 06/16 Neurology Consult and the subsequent 06/17 Neurology Progress Note. Additional clarification regarding the stage of CKD is requested. History/Risk Factors per the 06/16 History & Physical: Atrial Fibrillation, Bibasilar Fibrotic Lung Changes, UTI, Cardiac Valve Replacement, Schizoaffective disorder, Smoker, Alcohol Abuse. Clinical Indicators: Presented to the ED on 06/16 via EMS with Altered Mental Status, Unresponsiveness, Fever, Confusion, Hypotension and Weakness. ED Clinical Impression: Dehydration, Sepsis, Weakness, UTI, Elevated troponin, Delirium due to general medical condition, Atrial fibrillation with RVR, Acute kidney injury, Acute pulmonary edema, Fever. Current BUN/CR/GFR (06/16): 83/3.65/13 - 17 Historical GFR: No previous to compare. 06/16 Kidney/Renal/Bladder US: No evidence of hydronephrosis. Treatment: Intubated in ED, Vent, Central Line, IV Versed, IV Na Cl 500 mls @ 1000 mls/hr q35M, IV Quelicin, IV Ibuprofen x1, IV Levaquin x1, IV Zosyn x1, IV Na Cl 2,000 mls @ 999 mls/hr q2H x2, IV Narcan, IV Levophed, INH Duoneb, IV Propofol, IV Diprivan, IV Protonix, Heparin sq, IV Synthroid, IV Dextrose/Water w/Amiodarone, IV Tylenol, IV Benadryl, IV Keppra, IV Na Bicarb 150 mls x1 Nephrology Consult: MOOKIE secondary to ATN secondary to Sepsis. Septic Shock on Levophed. Acute Hypoxic Respiratory Failure, Hypernatremia, Hyperkalemia. Metabolic Acidosis and Lactic Acidosis, Hypercalcemia. Please clarify the stage of the CKD, if known: [ ] CKD Stage 4 (GFR 15-29) [ ] CKD Stage 5 (GFR <15) [ ] CKD Ruled Out [ ] Other, please specify [ ] Unable to determine (Template Last revised: October 2020) no ckd MTDD
[2021-06-18] MEDS ORDERED: VANCOMYCIN IV PER PHARMACY 1 EACH MISC MISCELLANE PRN (09:07)
--- NOTE | 2021-06-18 09:20 | P.PN ---
Subjective Progress Note Date: 06/18/21 56-year-old female patient, a retirement resident, presented to the emergency department with unresponsiveness. She had altered mentation above and beyond her baseline. I've taken care of this patient approximately a month ago when she came in to the ICU with septic shock secondary to E. coli UTI and sepsis. During this time around, the patient was profoundly hypotensive. She had significant metabolic disturbances and she was also in acute kidney injury. For now, her white cell count is at 18.4. Hemoglobin is at 14.2. She has a platelet count of 399, INR of 1.7 with a PT of 16.9, sodium of 154 with a serum bicarb of 18 and an anion gap of 19 with a potassium level of 5.7, glucose of 206, lactic acid level was quite elevated at 5, troponin of 0.4, abnormal AST of 238, ALT of 128, and the patient's urinalysis was positive only for Proteus. COVID-19 testing was negative. Chest x-ray shows chronic interstitial changes bilaterally consistent with previous history of bibasilar pulmonary fibrosis. The patient was quite hypotensive. The patient was started on pressors. The patient was intubated and placed on a mechanical ventilator in the burst department. She received a total of 2 L of normal saline and currently she is on half normal saline running at 150 mL an hour. She is on a mechanical ventilator on assist control mode at the rate of 14 with a tidal volume of 400 and FiO2 of 5% and a PEEP of 5. Blood gas from today showed a pH of 7.33 with a pCO2 of 33 and pO2 of 146. She is cold and clammy and she has multiple skin lower extremities bilaterally. Urine output is low however is gradually improving. No other history is available. She'll have a history of schiz oaffective disorder. Previous echocardiogram has shown a preserved LV function with an ejection fraction of 55% based on echocardiogram that was done in February 2021. Cardiac rhythm is sinus.. The patient was given a triple lumen catheter in the right IJ. She doesn't have an arterial line for now. She is currently operable for which is running at 30 mcg/kg per minute. She is on norepinephrine infusion at 0.2 mcg/kg per minute. On 06/17/2021, the patient is being seen for a follow-up. This morning, the patient remains intubated on a mechanical ventilator. She remains sedated on propofol is being gradually weaned off that as the patient's underlying mental status. For now, probable running at 15 mcg/kg per minute. She remains deeply sedated and very responsive to painful stimulation. The patient is on a mechanical ventilator. She is an assist-control mode of mechanical ventilation at the rate of 26 with a tidal volume of 400 and FiO2 of 70% with a PEEP of 5. The chest x-ray still showing coarse interstitial infiltrates bilaterally. Note that the patient has underlying pulmonary fibrosis and chronic interstitial changes bilaterally. The blood gases from today showing a pH of 7.37 with a pCO2 of 36 and pO2 of 200 and based on that the FiO2 will be weaned off. This was done and FiO2 of 100%. Meanwhile, hemodynamically, the patient remains hypotensive. Norepinephrine infusion is running at 0.14 mcg/kg per minute. The patient is also on a bicarb infusion running at 1 25 mL an hour. The patient grew gram-positive cocci in clumps clusters and her blood 2 blood cultures and vancomycin was added overnight. She remains on IV cefepime. She is afebrile. Urine output is improved and currently she is producing urine output in order of 6200 mL an hour. Ultrasound the kidneys showed no evidence of any hydronephrosis. White cell count of 18 with a hemoglobin of 11.1.Creatinine is down to 2.9 with a mean of 74. Sodium level is down to 149. Potassium level is down to 3.2. She has a component of non-anion gap metabolic acidosis. Serum bicarb is at 19 with a gap of 12. AST is 592, ALT is 481, alkaline phosphatase is 51. Troponin was 0.4 and 0.1 respectively. COVID-19 testing showed negative COVID-19 infection at this point in time. She has a triple lumen catheter in the right IJ. An arterial line was also established in the right femoral artery. Another issue is that the patient has history of paroxysmal atrial fibrillation. During this current admission, and overnight the patient developed A. fib with RVR. The patient was started on amiodarone per protocol and currently she is on amiodarone at 0.5 mg per minute. She converted back into normal sinus rhythm. Anticoagulation will be initiated with Eliquis. 06/18/2021, I'm seeing this patient for a follow-up. Noted the patient is a complicated case of septic shock is currently intubated on a mechanical ventilator. This morning, she was taken off the sedation. Earlier, the propof ol was running at 15 mcg/kg per minute. It is noticed that the patient was deeply sedated. We stop the sedation as of known yesterday. She remains essentially unresponsive this morning. Upon repeated stimulation, she becomes very tachypneic and tachycardic. Nevertheless, she does not withdraw to painful stimulation. She does not open up her eyes spontaneously. She has a gaze preference to the right inferior direction. He was around 3 mm in size and there sluggish and reactive to light. No seizure activity has been noted. Noted the patient's underlying dementia. She remains on a mechanical ventilator. She is an assist-control mode at the rate of 26 with a tidal volume of 400 and FiO2 of 50% with a PEEP of 5. Blood gases from today showed a pH of 7.46 with a pCO2 of 33 and pO2 of 117. This was done and FiO2 of 50%. Chest x- ray showed adequate positioning of the ET tube. There is some increased interstitial markings bilaterally. OG tube is also in good location. The right lower lobe seems to be better aerated. Cannot rule out the possibility of bibasilar pulmonary infiltrates. Note that the patient is having copious amount of rest or secretions. Earlier sputum culture showed positive Aracely. Otherwise no other microbial growth. Meanwhile, she was quite septic and she was hemodynamically unstable at time of admission. She was resuscitated aggressively with IV fluids. The blood cultures 4 out of 4 came back positive for staph, likely coagulase-negative. She was covered with a combination of Zosyn and vancomycin and this will be continued for now pending further advice from infectious disease. In terms of her fluid balance, the patient is on a bi carb infusion which is still running at the rate of 1 25 mL an hour. His serum bicarb is improvement up to 21. Sodium level is also dropped down to 145 as the patient is also receiving free water flushes through her orogastric tube. From the cardiac standpoint, she has converted into sinus rhythm. She was taken off the amiodarone drip and she is currently on oral amiodarone at a dose of 200 mg by mouth 3 times a day and the patient is also on anticoagulation with Eliquis 5 mg by mouth twice a day. No seizure activity has been noted and the patient remains on Keppra. Blood sugar management is with NovoLog slight scale coverage. The patient is receiving enteral feeding for nutritional support and she is currently on vital a F at the rate of 36 mL an hour. She did have a large bowel movement earlier today. She is afebrile. The son has expressed wishes to proceed with a cause status change into comfort care measures taken account for history and various comorbidities. Further discussion will be done with the family regarding her condition and proceed accordingly. The renal function continues to improve. Creatinine currently is down to 1.68 and the patient is producing adequate amount of urine output. Objective - Vital Signs Vital signs: Vital Signs Temp 99.0 F 06/18/21 08:00 Pulse 81 06/18/21 08:00 Resp 22 06/18/21 08:00 BP 84/58 06/17/21 16:00 Pulse Ox 96 06/18/21 08:00 Intake & Output 06/17/21 06/18/21 06/18/21 18:59 06:59 18:59 Intake Total 3508.715 9577.973 832.836 Output Total 730 735 225 Balance 5873.552 1672.973 607.836 Weight 100.7 kg 106.8 kg Intake: IV 1375 1500 250 Bicarb 1375 1500 250 Intake, IV Titration 170.809 261.973 260.836 Amount Amiodarone 450 mg In 204.449 135.836 Dextrose 5% in Water 250 ml @ 0.5 MG/MIN 16.667 mls/hr IV .Q15H [facility] Rx#: [id number] Norepinephrine 32 mg In 85.163 57.524 Sodium Chloride 0.9% 218 ml @ 0.05 MCG/KG/MIN 2. 126 mls/hr IV .Q24H [facility] Rx#:[id number] Piperacillin-Tazobactam 3 25 .375 gm In Sodium Chloride 0.9% 100 ml @ 25 mls/hr IVPB Q8HR [facility] Rx# :[id number] levETIRAcetam IV 500 mg 100 In Sodium Chloride 0.9% 100 ml @ 400 mls/hr IVPB Q12HR [facility] Rx#:[id number] propofoL 1,000 mg In 85.646 Empty Bag 1 bag @ Titrate IV .Q0M [facility] Rx#: [id number] Tube Feeding 100 400 72 Other 250 750 250 Output: Urine 730 735 225 Other: Voiding Method Indwelling Catheter Indwelling Catheter Indwelling Catheter # Bowel Movements 2 ABP, PAP, CO, CI - Last Documented Arterial Blood Pressure 123/61 - Exam Gen. appearance, the patient is off sedation the patient remains unresponsive at this point in time., comfortable no acute distress. She is intubated on a mechanical ventilator. Orogastric and orotracheal tube are both in place. Head exam was generally normal. There was no scleral icterus or corneal arcus. Mucous membranes were moist. Neck was supple and without jugular venous distension, thyromegaly, or carotid bruits. Carotids were easily palpable bilaterally. There was no adenopathy. Lungs were clear to auscultation and percussion, and with normal diaphragmatic excursion. No wheezes or rales were noted. Cardiac exam revealed the PMI to be normally situated and sized. The rhythm was regular and no extrasystoles were noted during several minutes of auscultation. The first and second heart sounds were normal and physiologic splitting of the second heart sound was noted. There were no murmurs, rubs, clicks, or gallops. Abdominal exam revealed normal bowel sounds. The abdomen was soft, non-tender, and without masses, organomegaly, or appreciable enlargement of the abdominal aorta. Examination of the extremities revealed v weak radial, femoral and pedal pulses. There was no cyanosis, clubbing or edema. Diminished pulses in all 4 extremities and the patient has been cold and clammy. Examination of the skin revealed no evidence of significant rashes, suspicious appearing nevi or other concerning lesions. Neurologically lethargic yet arousable. No focal logical deficits. Pupils are equal and reactive to light. No facial asymmetry. No neck stiffness. No nystagmus. There is a preferential gaze to the right inferior direction. The patient is not responding to any painful stimulation. She has been off sedation since noontime yesterday. No clonus. Motor function is reduced in all 4 extremities and the patient has global weakness. Sensory cannot be adequately assessed. Reflexes equal and symmetrical. - Labs CBC & Chem 7: 06/18/21 03:45 06/18/21 03:45 Labs: Abnormal Lab Results - Last 24 Hours (Table) 06/17/21 06/17/21 06/17/21 Range/Units 10:15 10:15 11:34 WBC 15.9 H (3.8-10.6) k/uL RBC 3.15 L (3.80-5.40) m/uL Hgb 11.0 L (11.4-16.0) gm/dL Hct 32.7 L (34.0-46.0) % MCV 103.9 H (80.0-100.0) fL MCH 35.1 H (25.0-35.0) pg RDW 17.3 H (11.5-15.5) % Plt Count 142 L (150-450) k/uL Neutrophils # 14.4 H (1.3-7.7) k/uL Lymphocytes # (1.0-4.8) k/uL PT 17.0 H (9.0-12.0) sec INR 1.7 H (<1.2) ABG pH (7.35-7.45) ABG pCO2 (35-45) mmHg ABG pO2 (83-108) mmHg ABG O2 Saturation (94-97) % Sodium (137-145) mmol/L Potassium (3.5-5.1) mmol/L Chloride (98-107) mmol/L Carbon Dioxide (22-30) mmol/L BUN (7-17) mg/dL Creatinine (0.52-1.04) mg/dL Glucose (74-99) mg/dL POC Glucose (mg/dL) 174 H (75-99) mg/dL Calcium (8.4-10.2) mg/dL AST (14-36) U/L ALT (4-34) U/L Total Protein (6.3-8.2) g/dL Albumin (3.5-5.0) g/dL 06/17/21 06/17/21 06/18/21 Range/Units 15:52 23:48 03:45 WBC (3.8-10.6) k/uL RBC (3.80-5.40) m/uL Hgb (11.4-16.0) gm/dL Hct (34.0-46.0) % MCV (80.0-100.0) fL MCH (25.0-35.0) pg RDW (11.5-15.5) % Plt Count (150-450) k/uL Neutrophils # (1.3-7.7) k/uL Lymphocytes # (1.0-4.8) k/uL PT 13.8 H (9.0-12.0) sec INR 1.4 H (<1.2) ABG pH (7.35-7.45) ABG pCO2 (35-45) mmHg ABG pO2 (83-108) mmHg ABG O2 Saturation (94-97) % Sodium 148 H (137-145) mmol/L Potassium 3.1 L (3.5-5.1) mmol/L Chloride 114 H (98-107) mmol/L Carbon Dioxide 21 L (22-30) mmol/L BUN 62 H (7-17) mg/dL Creatinine 2.29 H (0.52-1.04) mg/dL Glucose 181 H (74-99) mg/dL POC Glucose (mg/dL) 133 H (75-99) mg/dL Calcium 7.5 L (8.4-10.2) mg/dL AST (14-36) U/L ALT (4-34) U/L Total Protein (6.3-8.2) g/dL Albumin (3.5-5.0) g/dL 06/18/21 06/18/21 06/18/21 Range/Units 03:45 03:45 05:30 WBC 13.8 H (3.8-10.6) k/uL RBC 3.16 L (3.80-5.40) m/uL Hgb 10.7 L (11.4-16.0) gm/dL Hct 32.2 L (34.0-46.0) % MCV 101.8 H (80.0-100.0) fL MCH (25.0-35.0) pg RDW 17.9 H (11.5-15.5) % Plt Count 132 L (150-450) k/uL Neutrophils # 12.6 H (1.3-7.7) k/uL Lymphocytes # 0.8 L (1.0-4.8) k/uL PT (9.0-12.0) sec INR (<1.2) ABG pH 7.46 H (7.35-7.45) ABG pCO2 33 L (35-45) mmHg ABG pO2 117 H (83-108) mmHg ABG O2 Saturation 99.5 H (94-97) % Sodium (137-145) mmol/L Potassium (3.5-5.1) mmol/L Chloride 112 H (98-107) mmol/L Carbon Dioxide 21 L (22-30) mmol/L BUN 53 H (7-17) mg/dL Creatinine 1.68 H (0.52-1.04) mg/dL Glucose 224 H (74-99) mg/dL POC Glucose (mg/dL) (75-99) mg/dL Calcium 7.8 L (8.4-10.2) mg/dL AST 495 H (14-36) U/L ALT 527 H (4-34) U/L Total Protein 5.7 L (6.3-8.2) g/dL Albumin 2.4 L (3.5-5.0) g/dL 06/18/21 Range/Units 06:09 WBC (3.8-10.6) k/uL RBC (3.80-5.40) m/uL Hgb (11.4-16.0) gm/dL Hct (34.0-46.0) % MCV (80.0-100.0) fL MCH (25.0-35.0) pg RDW (11.5-15.5) % Plt Count (150-450) k/uL Neutrophils # (1.3-7.7) k/uL Lymphocytes # (1.0-4.8) k/uL PT (9.0-12.0) sec INR (<1.2) ABG pH (7.35-7.45) ABG pCO2 (35-45) mmHg ABG pO2 (83-108) mmHg ABG O2 Saturation (94-97) % Sodium (137-145) mmol/L Potassium (3.5-5.1) mmol/L Chloride (98-107) mmol/L Carbon Dioxide (22-30) mmol/L BUN (7-17) mg/dL Creatinine (0.52-1.04) mg/dL Glucose (74-99) mg/dL POC Glucose (mg/dL) 166 H (75-99) mg/dL Calcium (8.4-10.2) mg/dL AST (14-36) U/L ALT (4-34) U/L Total Protein (6.3-8.2) g/dL Albumin (3.5-5.0) g/dL Microbiology - Last 24 Hours (Table) 06/16/21 02:10 Gram Stain - Final Sputum Sputum Culture - Final Aracely sp,not albicans/galbr 06/16/21 03:05 Blood Culture Gram Stain - Preliminary Blood Blood Culture - Preliminary Coagulase Negative Staph 06/16/21 03:40 Blood Culture Gram Stain - Preliminary Blood Assessment and Plan Plan: 1 Septic shock currently under investigation. The patient has produced gram- positive cocci in clusters in all of the blood cultures. The primary cultures indicating coagulase-negative staph. Nevertheless, for of the blood cultures are positive. No obvious source for this staphylococcal infection. The patient responded to the current antibiotic coverage including Zosyn and vancomycin. White cell count is improving. She is hemodynamically stable. Pressor requirements have improved compared to yesterday and she is currently on 0.08 mcg/kg per minute of norepinephrine infusion. ID consultation be obtained. Also, the patient has Aracely in the sputum and the rest or secretions are quite copious. We'll add Diflucan. Also obtain infectious disease consultation. 2 acute hypoxic respiratory failure secondary to above, oxygenation is stable. Chest x-ray was reviewed. Blood gases was reviewed. 3 altered mentation secondary to above, and the patient remains unresponsive despite being off propofol for almost 24 hours 4 acute kidney injury secondary to above, the creatinine is improving and the patient is producing adequate amount of urine output 5 acute hyperchloremic hypernatremia, improving with bicarb infusion and free water supplements of the OG 6 history of recurrent UTIs most recent hospitalization was for E. coli UTI and sepsis 7 history of fall with a previous left A. fib/tib fracture, managed conservatively by orthopedic surgery with interval 8 history of paroxysmal atrial fibrillation, normal cardiac rhythm is sinus rhythm, currently on amiodarone oral amiodarone on Eliquis 9 obesity with a BMI of 37 10 history of schizoaffective disorder 11 lactic acidosis, improving 12 non-anion gap metabolic acidosis, improving and the bicarb infusion, improved 13 transaminitis 14 Troponin leak 15 pulmonary fibrosis along with some honeycombing and traction bronchiectasis, seen on old CAT scans of the chest. Meanwhile, COVID-19 testing was negative. 16 Longterm resident with a poor baseline performance and functional status plan This continue the bicarb infusion and switch this patient to half-normal saline Continue vancomycin and Zosyn and add Diflucan Follow-up blood cultures , repeat 2 sets of blood cultures and obtain an infecti ous disease consultation Continue vent support Continue vent support and drop the respiratory rate down to 16 as the patient has a component of respiratory alkalosis Wean off pressors to maintain a mean artery pressure above 65 Start the patient and therapeutic for nutritional support and dietary consultation be obtained Continue amiodarone orally and the patient is currently on anticoagulation with Eliquis May need a CAT scan of the brain if there is no neurologic recovery. We'll give the patient another 24 hours Condition is critical we'll continue to follow make further recommendations based on her progress. Will update the family on her condition. We'll establish a CODE STATUS. I was informed of the family is considering the possibility of comfort care measures on this patient. I would like to have discussion with the family and confirmed this independently. There is a critically care evaluation that was done more than 30 minutes. Time with Patient: Greater than 30
[2021-06-18] MEDS: LEVOTHYROXINE IVP 100 MCG/5 ML VIAL IV SCH (09:23)
[2021-06-18] MEDS: SODIUM CHLORIDE 0.45% 1,000 ML IV SCH (09:25)
--- NOTE | 2021-06-18 09:49 | P.PN ---
Subjective Progress Note Date: 06/18/21 HISTORY OF PRESENT ILLNESS: This is a 56-year-old female with a past medical history significant for schizophrenia, hypothyroidism, and paraoxysmal atrial fibrillation. Patient does not follow with a net developer but was seen in consultation by Dr. Hebert in February 2021. We have been asked to see the patient in consultation for afib with RVR. Patient was apparently found unresponsive at the [facility] where she resides. Patient was brought to the hospital where she was found to be in septic shock. Patient was intubated in the emergency room. She was hypotensive and placed on vasopressor support. Patient examined at the bedside in the intensive care unit. Patient remains intubated. Telemetry reveals sinus tachycardia. EKG on admission reviewed by Dr. Shrestha revealing sinus tachycardia. Chest x-ray on admission reveals pulmonary edema slightly increased compared to last exam but improvement in pleural effusions. Laboratory data reveals WBC 18.4. Hemoglobin 14.2. Platelet count 399. Sodium 154. Potassium 5.7. BUN 83. Creatinine 3.65. Lactic acid 5.0. Repeat 1.4. Troponin 0.148. 0.423. Echocardiogram completed in February 2021 revealed ejection fraction 55-60%, trace aortic regurgitation, mild to moderate tricuspid regurgitation, and trace mitral regurgitation, with mild to moderate pulmonary hypertension. Current home cardiac medications include aspirin 81 mg daily. 06/17/2021 Patient examined this morning at the bedside in the ICU. She remains intubated on mechanical ventilation. She remains on vasopressors. Patient went into afib with RVR yesterday. She was started on IV amiodarone. She is currently maintaining sinus mechanism on telemetry. Echocardiogram completed revealed ejection fraction 60-65%, mild tricuspid regurgitation, moderate pulmonary hypertension. 06/18/2021 Patient examined this morning at the bedside. Patient remains intubated in the intensive care unit. She remains on IV amiodarone. Telemetry reveals sinus mechanism. She has been started on Eliquis for thromboembolic protection. PHYSICAL EXAM: VITAL SIGNS: Reviewed. GENERAL: Well-developed in no acute distress. HEENT: Head is normocephalic. Pupils are equal, round. Sclerae anicteric. Mucous membranes of the mouth are moist. Neck supple. No JVD or thyromegaly LUNGS: Respirations even and unlabored. Lungs diminished to auscultation bilaterally. HEART: Regular rate and rhythm. S1 and S2 heard. ABDOMEN: Soft. Nondistended. Nontender. EXTREMITIES: No clubbing or cyanosis. Peripheral pulses intact. No lower extremity edema NEUROLOGIC: Sedated on mechanical ventilation ASSESSMENT: Septic shock, present on admission Abnormal troponins, secondary to above, not suggestive of acute coronary syndrome Acute hypoxic respiratory failure requiring mechanical ventilation Acute renal failure Lactic acidosis Hypernatremia Hyperkalemia Elevated LFTs Paroxysmal atrial fibrillation, not on anticoagulation on an outpatient basis Hypothyroidism Schizophrenia PLAN: Discontinue IV amiodarone Begin oral amiodarone 200 mg 3 times a day Continue Eliquis for anticoagulation Further recommendations pending patient course Nurse practitioner note has been reviewed by physician. Signing provider agrees with the documented findings, assessment, and plan of care. Objective - Vital Signs Vital signs: Vital Signs Temp 99.0 F 06/18/21 08:00 Pulse 81 06/18/21 08:00 Resp 22 06/18/21 08:00 BP 84/58 06/17/21 16:00 Pulse Ox 96 06/18/21 08:00 Intake & Output 06/17/21 06/18/21 06/18/21 18:59 06:59 18:59 Intake Total 6868.348 0169.973 832.836 Output Total 730 735 225 Balance 6644.963 9019.973 607.836 Weight 100.7 kg 106.8 kg Intake: IV 1375 1500 250 Bicarb 1375 1500 250 Intake, IV Titration 170.809 261.973 260.836 Amount Amiodarone 450 mg In 204.449 135.836 Dextrose 5% in Water 250 ml @ 0.5 MG/MIN 16.667 mls/hr IV .Q15H [facility] Rx#: [id number] Norepinephrine 32 mg In 85.163 57.524 Sodium Chloride 0.9% 218 ml @ 0.05 MCG/KG/MIN 2. 126 mls/hr IV .Q24H [facility] Rx#:[id number] Piperacillin-Tazobactam 3 25 .375 gm In Sodium Chloride 0.9% 100 ml @ 25 mls/hr IVPB Q8HR [facility] Rx# :[id number] levETIRAcetam IV 500 mg 100 In Sodium Chloride 0.9% 100 ml @ 400 mls/hr IVPB Q12HR [facility] Rx#:[id number] propofoL 1,000 mg In 85.646 Empty Bag 1 bag @ Titrate IV .Q0M [facility] Rx#: [id number] Tube Feeding 100 400 72 Other 250 750 250 Output: Urine 730 735 225 Other: Voiding Method Indwelling Catheter Indwelling Catheter Indwelling Catheter # Bowel Movements 2 ABP, PAP, CO, CI - Last Documented Arterial Blood Pressure 123/61 - Labs CBC & Chem 7: 06/18/21 03:45 06/18/21 03:45 Labs: Abnormal Lab Results - Last 24 Hours (Table) 06/17/21 06/17/21 06/17/21 Range/Units 10:15 10:15 11:34 WBC 15.9 H (3.8-10.6) k/uL RBC 3.15 L (3.80-5.40) m/uL Hgb 11.0 L (11.4-16.0) gm/dL Hct 32.7 L (34.0-46.0) % MCV 103.9 H (80.0-100.0) fL MCH 35.1 H (25.0-35.0) pg RDW 17.3 H (11.5-15.5) % Plt Count 142 L (150-450) k/uL Neutrophils # 14.4 H (1.3-7.7) k/uL Lymphocytes # (1.0-4.8) k/uL PT 17.0 H (9.0-12.0) sec INR 1.7 H (<1.2) ABG pH (7.35-7.45) ABG pCO2 (35-45) mmHg ABG pO2 (83-108) mmHg ABG O2 Saturation (94-97) % Sodium (137-145) mmol/L Potassium (3.5-5.1) mmol/L Chloride (98-107) mmol/L Carbon Dioxide (22-30) mmol/L BUN (7-17) mg/dL Creatinine (0.52-1.04) mg/dL Glucose (74-99) mg/dL POC Glucose (mg/dL) 174 H (75-99) mg/dL Calcium (8.4-10.2) mg/dL AST (14-36) U/L ALT (4-34) U/L Total Protein (6.3-8.2) g/dL Albumin (3.5-5.0) g/dL 06/17/21 06/17/21 06/18/21 Range/Units 15:52 23:48 03:45 WBC (3.8-10.6) k/uL RBC (3.80-5.40) m/uL Hgb (11.4-16.0) gm/dL Hct (34.0-46.0) % MCV (80.0-100.0) fL MCH (25.0-35.0) pg RDW (11.5-15.5) % Plt Count (150-450) k/uL Neutrophils # (1.3-7.7) k/uL Lymphocytes # (1.0-4.8) k/uL PT 13.8 H (9.0-12.0) sec INR 1.4 H (<1.2) ABG pH (7.35-7.45) ABG pCO2 (35-45) mmHg ABG pO2 (83-108) mmHg ABG O2 Saturation (94-97) % Sodium 148 H (137-145) mmol/L Potassium 3.1 L (3.5-5.1) mmol/L Chloride 114 H (98-107) mmol/L Carbon Dioxide 21 L (22-30) mmol/L BUN 62 H (7-17) mg/dL Creatinine 2.29 H (0.52-1.04) mg/dL Glucose 181 H (74-99) mg/dL POC Glucose (mg/dL) 133 H (75-99) mg/dL Calcium 7.5 L (8.4-10.2) mg/dL AST (14-36) U/L ALT (4-34) U/L Total Protein (6.3-8.2) g/dL Albumin (3.5-5.0) g/dL 06/18/21 06/18/21 06/18/21 Range/Units 03:45 03:45 05:30 WBC 13.8 H (3.8-10.6) k/uL RBC 3.16 L (3.80-5.40) m/uL Hgb 10.7 L (11.4-16.0) gm/dL Hct 32.2 L (34.0-46.0) % MCV 101.8 H (80.0-100.0) fL MCH (25.0-35.0) pg RDW 17.9 H (11.5-15.5) % Plt Count 132 L (150-450) k/uL Neutrophils # 12.6 H (1.3-7.7) k/uL Lymphocytes # 0.8 L (1.0-4.8) k/uL PT (9.0-12.0) sec INR (<1.2) ABG pH 7.46 H (7.35-7.45) ABG pCO2 33 L (35-45) mmHg ABG pO2 117 H (83-108) mmHg ABG O2 Saturation 99.5 H (94-97) % Sodium (137-145) mmol/L Potassium (3.5-5.1) mmol/L Chloride 112 H (98-107) mmol/L Carbon Dioxide 21 L (22-30) mmol/L BUN 53 H (7-17) mg/dL Creatinine 1.68 H (0.52-1.04) mg/dL Glucose 224 H (74-99) mg/dL POC Glucose (mg/dL) (75-99) mg/dL Calcium 7.8 L (8.4-10.2) mg/dL AST 495 H (14-36) U/L ALT 527 H (4-34) U/L Total Protein 5.7 L (6.3-8.2) g/dL Albumin 2.4 L (3.5-5.0) g/dL 06/18/21 Range/Units 06:09 WBC (3.8-10.6) k/uL RBC (3.80-5.40) m/uL Hgb (11.4-16.0) gm/dL Hct (34.0-46.0) % MCV (80.0-100.0) fL MCH (25.0-35.0) pg RDW (11.5-15.5) % Plt Count (150-450) k/uL Neutrophils # (1.3-7.7) k/uL Lymphocytes # (1.0-4.8) k/uL PT (9.0-12.0) sec INR (<1.2) ABG pH (7.35-7.45) ABG pCO2 (35-45) mmHg ABG pO2 (83-108) mmHg ABG O2 Saturation (94-97) % Sodium (137-145) mmol/L Potassium (3.5-5.1) mmol/L Chloride (98-107) mmol/L Carbon Dioxide (22-30) mmol/L BUN (7-17) mg/dL Creatinine (0.52-1.04) mg/dL Glucose (74-99) mg/dL POC Glucose (mg/dL) 166 H (75-99) mg/dL Calcium (8.4-10.2) mg/dL AST (14-36) U/L ALT (4-34) U/L Total Protein (6.3-8.2) g/dL Albumin (3.5-5.0) g/dL Microbiology - Last 24 Hours (Table) 06/16/21 02:10 Gram Stain - Final Sputum Sputum Culture - Final Aracely sp,not albicans/galbr 06/16/21 03:05 Blood Culture Gram Stain - Preliminary Blood Blood Culture - Preliminary Coagulase Negative Staph 06/16/21 03:40 Blood Culture Gram Stain - Preliminary Blood
[2021-06-18] MEDS ORDERED: FLUCONAZOLE IN NACL,ISO-OSM 100 MG in SALINE 1 50ML.BAG IVPB SCH (11:00)
--- NOTE | 2021-06-18 11:02 | P.PN ---
Subjective Patient is seen in follow-up for acute kidney injury and electrolyte imbalance. Renal function is improving. Nonoliguric. Remains intubated. On Levophed. Now on oral amiodarone for A. fib. Bicarb level stable at 21. Sodium level down to 145. Blood cultures are positive for gram-positive cocci/coag-negative staph. Vital signs are stable. On vasopressor support. General: The patient appeared well nourished and normally developed. HEENT: Intubated. LUNGS: Breath sounds decreased. HEART: Rate and Rhythm are regular. ABDOMEN: Soft, no distention. Obese. EXTREMITITES: No edema. Objective - Vital Signs Vital signs: Vital Signs Temp 99.0 F 06/18/21 08:00 Pulse 81 06/18/21 08:00 Resp 22 06/18/21 08:00 BP 84/58 06/17/21 16:00 Pulse Ox 96 06/18/21 08:00 Intake & Output 06/17/21 06/18/21 06/18/21 18:59 06:59 18:59 Intake Total 0768.198 0779.973 832.836 Output Total 730 735 225 Balance 6670.870 5422.973 607.836 Weight 100.7 kg 106.8 kg Intake: IV 1375 1500 250 Bicarb 1375 1500 250 Intake, IV Titration 170.809 261.973 260.836 Amount Amiodarone 450 mg In 204.449 135.836 Dextrose 5% in Water 250 ml @ 0.5 MG/MIN 16.667 mls/hr IV .Q15H [facility] Rx#: [id number] Norepinephrine 32 mg In 85.163 57.524 Sodium Chloride 0.9% 218 ml @ 0.05 MCG/KG/MIN 2. 126 mls/hr IV .Q24H [facility] Rx#:[id number] Piperacillin-Tazobactam 3 25 .375 gm In Sodium Chloride 0.9% 100 ml @ 25 mls/hr IVPB Q8HR [facility] Rx# :[id number] levETIRAcetam IV 500 mg 100 In Sodium Chloride 0.9% 100 ml @ 400 mls/hr IVPB Q12HR [facility] Rx#:[id number] propofoL 1,000 mg In 85.646 Empty Bag 1 bag @ Titrate IV .Q0M [facility] Rx#: [id number] Tube Feeding 100 400 72 Other 250 750 250 Output: Urine 730 735 225 Other: Voiding Method Indwelling Catheter Indwelling Catheter Indwelling Catheter # Bowel Movements 2 ABP, PAP, CO, CI - Last Documented Arterial Blood Pressure 123/61 - Labs CBC & Chem 7: 06/18/21 03:45 06/18/21 03:45 Labs: Abnormal Lab Results - Last 24 Hours (Table) 06/17/21 06/17/21 06/17/21 Range/Units 11:34 15:52 23:48 WBC (3.8-10.6) k/uL RBC (3.80-5.40) m/uL Hgb (11.4-16.0) gm/dL Hct (34.0-46.0) % MCV (80.0-100.0) fL RDW (11.5-15.5) % Plt Count (150-450) k/uL Neutrophils # (1.3-7.7) k/uL Lymphocytes # (1.0-4.8) k/uL PT (9.0-12.0) sec INR (<1.2) ABG pH (7.35-7.45) ABG pCO2 (35-45) mmHg ABG pO2 (83-108) mmHg ABG O2 Saturation (94-97) % Sodium 148 H (137-145) mmol/L Potassium 3.1 L (3.5-5.1) mmol/L Chloride 114 H (98-107) mmol/L Carbon Dioxide 21 L (22-30) mmol/L BUN 62 H (7-17) mg/dL Creatinine 2.29 H (0.52-1.04) mg/dL Glucose 181 H (74-99) mg/dL POC Glucose (mg/dL) 174 H 133 H (75-99) mg/dL Calcium 7.5 L (8.4-10.2) mg/dL AST (14-36) U/L ALT (4-34) U/L Total Protein (6.3-8.2) g/dL Albumin (3.5-5.0) g/dL 06/18/21 06/18/21 06/18/21 Range/Units 03:45 03:45 03:45 WBC 13.8 H (3.8-10.6) k/uL RBC 3.16 L (3.80-5.40) m/uL Hgb 10.7 L (11.4-16.0) gm/dL Hct 32.2 L (34.0-46.0) % MCV 101.8 H (80.0-100.0) fL RDW 17.9 H (11.5-15.5) % Plt Count 132 L (150-450) k/uL Neutrophils # 12.6 H (1.3-7.7) k/uL Lymphocytes # 0.8 L (1.0-4.8) k/uL PT 13.8 H (9.0-12.0) sec INR 1.4 H (<1.2) ABG pH (7.35-7.45) ABG pCO2 (35-45) mmHg ABG pO2 (83-108) mmHg ABG O2 Saturation (94-97) % Sodium (137-145) mmol/L Potassium (3.5-5.1) mmol/L Chloride 112 H (98-107) mmol/L Carbon Dioxide 21 L (22-30) mmol/L BUN 53 H (7-17) mg/dL Creatinine 1.68 H (0.52-1.04) mg/dL Glucose 224 H (74-99) mg/dL POC Glucose (mg/dL) (75-99) mg/dL Calcium 7.8 L (8.4-10.2) mg/dL AST 495 H (14-36) U/L ALT 527 H (4-34) U/L Total Protein 5.7 L (6.3-8.2) g/dL Albumin 2.4 L (3.5-5.0) g/dL 06/18/21 06/18/21 Range/Units 05:30 06:09 WBC (3.8-10.6) k/uL RBC (3.80-5.40) m/uL Hgb (11.4-16.0) gm/dL Hct (34.0-46.0) % MCV (80.0-100.0) fL RDW (11.5-15.5) % Plt Count (150-450) k/uL Neutrophils # (1.3-7.7) k/uL Lymphocytes # (1.0-4.8) k/uL PT (9.0-12.0) sec INR (<1.2) ABG pH 7.46 H (7.35-7.45) ABG pCO2 33 L (35-45) mmHg ABG pO2 117 H (83-108) mmHg ABG O2 Saturation 99.5 H (94-97) % Sodium (137-145) mmol/L Potassium (3.5-5.1) mmol/L Chloride (98-107) mmol/L Carbon Dioxide (22-30) mmol/L BUN (7-17) mg/dL Creatinine (0.52-1.04) mg/dL Glucose (74-99) mg/dL POC Glucose (mg/dL) 166 H (75-99) mg/dL Calcium (8.4-10.2) mg/dL AST (14-36) U/L ALT (4-34) U/L Total Protein (6.3-8.2) g/dL Albumin (3.5-5.0) g/dL Microbiology - Last 24 Hours (Table) 06/16/21 02:10 Gram Stain - Final Sputum Sputum Culture - Final Aracely sp,not albicans/galbr 06/16/21 03:05 Blood Culture Gram Stain - Preliminary Blood Blood Culture - Preliminary Coagulase Negative Staph 06/16/21 03:40 Blood Culture Gram Stain - Preliminary Blood Assessment and Plan Plan: Assessment: 1. Acute kidney injury secondary to ATN secondary to septic shock. Creatinine 3.65 on admission - 1.68 today. Baseline creatinine near 1. No evidence of hydronephrosis noted on kidney ultrasound. 2. Septic shock on Levophed. Blood cultures positive for gram-positive cocci/coag-negative staph. On IV antibiotics. Infectious disease consulted. 3. Acute hypoxic respiratory failure. On 50% FiO2. 4. Hypernatremia from lack of oral water intake. Improving. 5. Hypokalemia from poor intake and intracellular shifting from IV bicarb. Replaced. Better. 6. Metabolic acidosis secondary to acute kidney injury and lactic acidosis. Stable. 7. Hypercalcemia secondary to volume contraction. Resolved. 8. A. fib with RVR now on oral amiodarone. Plan: Maintain tube feeds. Add water flushes 300 mL every 6 hours. Change IV fluids to normal saline at 50 mL an hour. Follow-up cultures. Wean FiO2 and vasopressors. Continue to monitor renal function and urine output. Potassium being replaced. Monitor vancomycin levels. Dose to be adjusted for renal function. Overall prognosis guarded.
--- NOTE | 2021-06-18 11:23 | P.PN ---
Subjective Progress Note Date: 06/18/21 The patient seen on bedside and she continues to be intubated on ventilator. Per the patient's nurse she's been off the propofol since 12 PM in the afternoon yesterday and that she has been responding. She continues to be on pressor. Per the patient's ICU nurse and she stated that the son will be coming in today for possible comfort care measures. Objective - Vital Signs Vital signs: Vital Signs Temp 99.0 F 06/18/21 08:00 Pulse 81 06/18/21 08:00 Resp 22 06/18/21 08:00 BP 84/58 06/17/21 16:00 Pulse Ox 96 06/18/21 08:00 Intake & Output 06/17/21 06/18/21 06/18/21 18:59 06:59 18:59 Intake Total 9048.747 4293.973 832.836 Output Total 730 735 225 Balance 8870.945 1618.973 607.836 Weight 100.7 kg 106.8 kg Intake: IV 1375 1500 250 Bicarb 1375 1500 250 Intake, IV Titration 170.809 261.973 260.836 Amount Amiodarone 450 mg In 204.449 135.836 Dextrose 5% in Water 250 ml @ 0.5 MG/MIN 16.667 mls/hr IV .Q15H [facility] Rx#: [id number] Norepinephrine 32 mg In 85.163 57.524 Sodium Chloride 0.9% 218 ml @ 0.05 MCG/KG/MIN 2. 126 mls/hr IV .Q24H [facility] Rx#:[id number] Piperacillin-Tazobactam 3 25 .375 gm In Sodium Chloride 0.9% 100 ml @ 25 mls/hr IVPB Q8HR [facility] Rx# :[id number] levETIRAcetam IV 500 mg 100 In Sodium Chloride 0.9% 100 ml @ 400 mls/hr IVPB Q12HR [facility] Rx#:[id number] propofoL 1,000 mg In 85.646 Empty Bag 1 bag @ Titrate IV .Q0M [facility] Rx#: [id number] Tube Feeding 100 400 72 Other 250 750 250 Output: Urine 730 735 225 Other: Voiding Method Indwelling Catheter Indwelling Catheter Indwelling Catheter # Bowel Movements 2 ABP, PAP, CO, CI - Last Documented Arterial Blood Pressure 123/61 - Exam GENERAL: The patient is lying in bed and does not seem in acute distress. HENT: supple neck. LUNG: Clear to auscultation bilaterally no wheezing noted throughout. Not labored breathing. Intubated on ventilator. NEUROLOGICAL: Limited. But off sedation since 12pm on 06/17/2021. Higher mental function: The patient is comatose GCS 4, (E2, VT1, M1). Non- responsive and not following command. Cranial nerves: Slightly opened her eyes to painful stimuli. The pupils are round, equal (3mm) and reactive to light. Has positive corneal reflex bilaterally. No facial weakness. Is breathing over the vent. Has positive gag Motor: The strength is limited in assessment because of her condition. Slightly withdrew on lower extremities but not upper. But Has decrease tone throughout. Normal bulk. Cerebellum: Could not assess. Sensation: Could not assess light touch and seems to have painful stimuli over lowers. Reflexes (right/left): 1+ throughout. Plantars are mute bilaterally. FURTHER WORK-UP: AST: 238-->592-->495 ALT:128-->481-->527 ammonia <9. Blood culture: Grame positive cocci in clusters - Labs CBC & Chem 7: 06/18/21 03:45 06/18/21 03:45 Labs: Abnormal Lab Results - Last 24 Hours (Table) 06/17/21 06/17/21 06/17/21 Range/Units 11:34 15:52 23:48 WBC (3.8-10.6) k/uL RBC (3.80-5.40) m/uL Hgb (11.4-16.0) gm/dL Hct (34.0-46.0) % MCV (80.0-100.0) fL RDW (11.5-15.5) % Plt Count (150-450) k/uL Neutrophils # (1.3-7.7) k/uL Lymphocytes # (1.0-4.8) k/uL PT (9.0-12.0) sec INR (<1.2) ABG pH (7.35-7.45) ABG pCO2 (35-45) mmHg ABG pO2 (83-108) mmHg ABG O2 Saturation (94-97) % Sodium 148 H (137-145) mmol/L Potassium 3.1 L (3.5-5.1) mmol/L Chloride 114 H (98-107) mmol/L Carbon Dioxide 21 L (22-30) mmol/L BUN 62 H (7-17) mg/dL Creatinine 2.29 H (0.52-1.04) mg/dL Glucose 181 H (74-99) mg/dL POC Glucose (mg/dL) 174 H 133 H (75-99) mg/dL Calcium 7.5 L (8.4-10.2) mg/dL AST (14-36) U/L ALT (4-34) U/L Total Protein (6.3-8.2) g/dL Albumin (3.5-5.0) g/dL 06/18/21 06/18/21 06/18/21 Range/Units 03:45 03:45 03:45 WBC 13.8 H (3.8-10.6) k/uL RBC 3.16 L (3.80-5.40) m/uL Hgb 10.7 L (11.4-16.0) gm/dL Hct 32.2 L (34.0-46.0) % MCV 101.8 H (80.0-100.0) fL RDW 17.9 H (11.5-15.5) % Plt Count 132 L (150-450) k/uL Neutrophils # 12.6 H (1.3-7.7) k/uL Lymphocytes # 0.8 L (1.0-4.8) k/uL PT 13.8 H (9.0-12.0) sec INR 1.4 H (<1.2) ABG pH (7.35-7.45) ABG pCO2 (35-45) mmHg ABG pO2 (83-108) mmHg ABG O2 Saturation (94-97) % Sodium (137-145) mmol/L Potassium (3.5-5.1) mmol/L Chloride 112 H (98-107) mmol/L Carbon Dioxide 21 L (22-30) mmol/L BUN 53 H (7-17) mg/dL Creatinine 1.68 H (0.52-1.04) mg/dL Glucose 224 H (74-99) mg/dL POC Glucose (mg/dL) (75-99) mg/dL Calcium 7.8 L (8.4-10.2) mg/dL AST 495 H (14-36) U/L ALT 527 H (4-34) U/L Total Protein 5.7 L (6.3-8.2) g/dL Albumin 2.4 L (3.5-5.0) g/dL 06/18/21 06/18/21 Range/Units 05:30 06:09 WBC (3.8-10.6) k/uL RBC (3.80-5.40) m/uL Hgb (11.4-16.0) gm/dL Hct (34.0-46.0) % MCV (80.0-100.0) fL RDW (11.5-15.5) % Plt Count (150-450) k/uL Neutrophils # (1.3-7.7) k/uL Lymphocytes # (1.0-4.8) k/uL PT (9.0-12.0) sec INR (<1.2) ABG pH 7.46 H (7.35-7.45) ABG pCO2 33 L (35-45) mmHg ABG pO2 117 H (83-108) mmHg ABG O2 Saturation 99.5 H (94-97) % Sodium (137-145) mmol/L Potassium (3.5-5.1) mmol/L Chloride (98-107) mmol/L Carbon Dioxide (22-30) mmol/L BUN (7-17) mg/dL Creatinine (0.52-1.04) mg/dL Glucose (74-99) mg/dL POC Glucose (mg/dL) 166 H (75-99) mg/dL Calcium (8.4-10.2) mg/dL AST (14-36) U/L ALT (4-34) U/L Total Protein (6.3-8.2) g/dL Albumin (3.5-5.0) g/dL Microbiology - Last 24 Hours (Table) 06/16/21 02:10 Gram Stain - Final Sputum Sputum Culture - Final Aracely sp,not albicans/galbr 06/16/21 03:05 Blood Culture Gram Stain - Preliminary Blood Blood Culture - Preliminary Coagulase Negative Staph 06/16/21 03:40 Blood Culture Gram Stain - Preliminary Blood Assessment and Plan Assessment: Altered mental status due to multifactorial: septic encephalopathy: underinvestigation and component of toxic-metabolic encephalopathy (elevated LFT's, hypernatremia--resolved, and acute kidney insuffiency). IV propofol stopped since 12pm on 06/17/2021. High suspicious of seizure on 04/2021 (admission) and was transferred to [facility] for tank terminal gauger EEG and further work-up. Septic shock on levo Acute kidney insufficiency--improving Transaminitis--worsening Hypernatremia likely due to dehydration--improved Troponin leak History of recurrent urinary tract infection History of fall History of proximal atrial fibrillation Schizoaffective disorder Plan: * Continue Keppra IV 500mg every 12 hours for her seizure was suspected in April 2021 for now (she was on Depakote but on hold since has elevated LFT's and once stable will consider starting patient home medication of Depakote 500 mg 1 tab bid (was being used for mood stabilizer and has antiepileptic effect as well). I spoke with a nurse and will try to obtain records of her ambulatory EEG and further investigation she had and Caridad Montoya. We'll try to find out what medication she was discharged with. * We'll consider a CT of the head and a routine EEG the patient mentation does not improve and family does not make her comfort care. * Possibly consider ID consult. * Cardiology is on board * Nephrology team is on board * We'll defer further work-up to the to the ICU in the primary team. * Per ICU nurse, son is considering comfort care and he is coming here today. Will wait until family to come. Condition: Is very critical The plan was discussed with the patient ICU nurse. John Laws M.D. Neuro-hospitalist Time with Patient: Less than 30
[2021-06-18 11:49] LABS: Glucose,Whole Blood 118 mg/dL (75-99)
[2021-06-18] MEDS: FLUCONAZOLE IN NACL,ISO-OSM 200 MG in SALINE 1 100ML.BAG IVPB SCH (13:23)
[2021-06-18] MEDS ORDERED: DEXTROSE 5% IN WATER 100 ML with AMIODARONE 150 MG IV ONE (16:13)
[2021-06-18] MEDS ORDERED: AMIODARONE 360 MG in DEXTROSE 5% IN WATER 200 ML IV ONE ×2 (16:30)
[2021-06-18 18:44] LABS: Glucose,Whole Blood 166 mg/dL (75-99)
--- NOTE | 2021-06-18 19:39 | P.PN ---
Progress Note - Text Progress Note Date: 06/18/21 Chief Complaint: Decreased responsiveness History of presenting complaint: This is a 56-year-old patient, follows with Dr. Beltrán at the [facility]. Patient was recently admitted to the hospital in May 05 and transferred on May 10 2 [facility] in [place].Admitted with UTI from cystitis with sepsis, bilateral pneumonia, septic shock, acute kidney injury with ATN.IV fluids. IV ceftriaxone. Admitted to the ICU. The transfer was done for continuous EEG monitoring. On this occasion patient is brought to with unresponsiveness. She was hypotensive. Acute kidney injury. Some abnormal liver enzymes, UA was positive. Patient was negative for COVID-19. Patient was intubated and put on the mechanical ventilator. Has been getting IV fluid boluses. This morning she has received about 4 L of fluids total. Has been in atrial fibrillation. Has or G-tube. Drips include we will affect, propofol, normal saline. FiO2 100% with a PEEP of 5. Febrile Admitted with acute metabolic/toxic encephalopathy from sepsis, septic shock, pneumonia, acute kidney injury likely from ATN, atrial flutter fibrillation rate uncontrolled, metabolic acidosis. June 17: ICU: On the ventilator with FiO2 50 PEEP of 5. Drips include norepinephrine and propofol. Atrial fibrillation rate better controlled. On IV amiodarone. Controlled on IV amiodarone. Blood cultures growing gram-positive cocci. Antibiotics changed to IV Zosyn and vancomycin. Fever is started to come down June 18: ICU: On the ventilator with FiO2 50 PEEP of 5. Drips include norepinephrine. 2 feeding at 36 mL/h. patient has remained afebrile. Patient's son is considering comfort care Review of systems:patient intubated Active Medications Albuterol/Ipratropium (Ipratropium-Albuterol 3 Ml Neb) 3 ml INHALATION RT-QID REPLACED BY [facility] Last Admin: 06/18/21 15:08 Dose: Not Given Documented by: Apixaban (Apixaban 5 Mg Tab) 5 mg PO BID REPLACED BY [facility]; Protocol Last Admin: 06/18/21 07:58 Dose: 5 mg Documented by: Chlorhexidine Gluconate (Chlorhexidine Gluconate 15 Ml Cup) 15 ml MUCOUS MEM BID REPLACED BY [facility] Last Admin: 06/18/21 07:59 Dose: 15 ml Documented by: Norepinephrine Bitartrate 32 (mg/ Sodium Chloride) 250 mls @ 2.126 mls/hr IV .Q24H NIESHA; Protocol Last Titration: 06/18/21 19:03 Dose: 0.16 mcg/kg/min, 6.804 mls/hr Documented by: Propofol 1,000 mg/ IV Solution 100 mls @ 0 mls/hr IV .Q0M NIESHA; Protocol Last Titration: 06/17/21 12:02 Dose: 0 mcg/kg/min, 0 mls/hr Documented by: Levetiracetam 500 mg/ Sodium (Chloride) 105 mls @ 400 mls/hr IVPB Q12HR NIESHA Last Admin: 06/18/21 08:02 Dose: 400 mls/hr Documented by: Piperacillin Sod/Tazobactam (Sod 3.375 gm/ Sodium Chloride) 100 mls @ 25 mls/hr IVPB Q8HR NIESHA Last Admin: 06/18/21 16:47 Dose: 25 mls/hr Documented by: Sodium Chloride (Saline 0.45%) 1,000 mls @ 50 mls/hr IV .Q20H NIESHA Last Admin: 06/18/21 09:25 Dose: 50 mls/hr Documented by: Fluconazole/Sodium Chloride (200 mg/ IV Solution) 100 mls @ 100 mls/hr IVPB DAILY NIESHA Last Admin: 06/18/21 13:23 Dose: 100 mls/hr Documented by: Amiodarone HCl 360 mg/ (Dextrose/Water) 200 mls @ 33.333 mls/hr IV .Q6H ONE; Protocol Stop: 06/18/21 22:29 Last Admin: 06/18/21 16:41 Dose: 1 mg/min, 33.333 mls/hr Documented by: Amiodarone HCl 450 mg/ (Dextrose/Water) 250 mls @ 16.667 mls/hr IV .Q15H NIESHA; Protocol Stop: 06/19/21 16:29 Insulin Aspart (Insulin Aspart (Novolog) 100 Unit/Ml Vial) 0 unit SQ Q6H NIESHA; Protocol Last Admin: 06/18/21 18:44 Dose: 2 unit Documented by: Levothyroxine Sodium (Levothyroxine Ivp 100 Mcg/5 Ml Vial) 50 mcg IV Q48H NIESHA Last Admin: 06/18/21 09:23 Dose: 50 mcg Documented by: Miscellaneous Information (Potassium Replacement Protocol 1 Each [facility]) 1 each MISCELLANE DAILY PRN; Protocol PRN Reason: Per Protocol Miscellaneous Information (Vancomycin Iv Per Pharmacy 1 Each [facility]) 1 each MISCELLANE DIRECTED PRN; Protocol PRN Reason: Per Protocol Naloxone HCl (Naloxone 0.4 Mg/Ml 1 Ml Vial) 0.2 mg IV Q2M PRN PRN Reason: Opioid Reversal Pantoprazole Sodium (Pantoprazole 40 Mg/10 Ml Vial) 40 mg IV DAILY NIESHA Last Admin: 06/18/21 07:57 Dose: 40 mg Documented by: Past medical history to include: Atrial fibrillation, bibasilar fibrotic lung changes with honeycombing, schizoaffective disorder, nicotine use, in February/2021 patient did have a left tibial plate to and left proximal fibular fracture Social history: ECF. Smoker, until recently. Marijuana use history of Family history: Could not be obtained. Physical examination: VITAL SIGNS: Afebrile, 91, 22, 122/61, 96% on the ventilator GENERAL: Laying in bed, sedated EYES: Pupils equal. Conjunctiva normal. HEENT: External appearance of nose and ears normal, oral cavity mucous membranes. ET tube, OG-tube NECK: JVD unable to assess; masses not palpable. HEART: First and second heart sounds are normal; no edema. LUNGS: Respiratory rate increased; scattered coarse expiratory crackles. ABDOMEN: Soft, nontender, liver spleen not palpable, no masses palpable. PSYCH: Unable to assess INVESTIGATIONS, reviewed in the clinical context: June 18: WBC 13.8 hemoglobin 10.7 platelets 132 potassium 3.7 BUN 53 creatinine 1.68 AST 495 ALT 527 June 17: WBC 15.9 hemoglobin 11 platelets 142, sodium 149 potassium 3.2 (74 creatinine 2.90, bicarb 19 AST 592 ALT 481 Blood cultures growing: Coagulase negative staph WBC 18.4 hemoglobin 14.2 platelets 399, sodium 154 potassium 5.7 BUN 83 creatinine 3.65 lactic acid 5 AST 238 ALT 128 Troponin I 0.148, 0.4-3 EKG tracing personally reviewed by me-atrial flutter with 2 was 21 conduction Chest x-ray film personally reviewed by me-bilateral infiltrates/also some chronicity Previous testing: May 10: BUN 17 creatinine 0.93, AST/ALT both normal CT chest [02/24/2021] chronic parenchymal fibrotic changes greatest in the bases. With honeycombing. It is of groundglass opacities. 2-D echocardiogram: EF 55 have a 60%. [id number] tricuspid regurgitation. Some element of pulmonary hypertension Assessment and plan: -Acute/metabolic/toxic encephalopathy. From sepsis: Slow to respond -Possible pneumonia suspected gram-negative organism, patient has underlying also chronic fibrotic changes IV Zosyn -Positive blood cultures for coagulase-negative staph, possibility of contamination Continue with vancomycin -Chronic bilateral pulmonary fibrosis with honeycombing Bronchodilators. -Septic shock: Slow to respond On IV levo fed. IV fluids -Questionable seizure on last admission patient was transferred to [facility] in [place] for further workup. Neurology's request records from [facility]. Started on IV Keppra -Acute kidney injury, likely from ATN from sepsis: Slow to respond Admission creatinine 3.65. Patient's creatinine was 0.93 on May 10 -Metabolic and lactic acidosis from renal failure/sepsis: Slow to respond IV bicarbonate drip -Persistent atrial flutter-fibrillation, rate better controlled IV amiodarone. Eliquis started today by cardiology. -Chronic pulmonary fibrosis especially at the bases with honeycombing -Schizoaffective disorder On Invega -COPD in a smoker DuoNeb. -Hypernatremia from free water deficit: Slow to respond IV fluids. Follow sodium -Hyperkalemia from acute kidney injury: Improved Hydrate patient. -Likely acute ischemic hepatitis from hypotension: Not improving Follow-up LFTs. Patient continued on amiodarone per cardiology -Troponin leak from hemodynamic mismatch and sepsis. Not a clinical picture of acute coronary syndrome Been followed by cardiology Remains on IV levo fed. IV Keppra. IV vancomycin and IV Zosyn. On the ventilator. Prognosis guarded. Family is leaning towards comfort measures. Follow
--- NOTE | 2021-06-18 23:48 | P.CONS ---
History of Present Illness - Reason for Consult Consult date: 06/18/21 bacteremia Requesting physician: Keo Mcintosh - Chief Complaint unresponsive x 1 day - History of Present Illness History of present illness : Patient is 56-year female presenting to the ER 2 days ago after the patient was noticed to be unresponsive and appare ntly did have mental status on her baseline on this admission on presentation to the hospital patient did have a fever of 102.2 degree for night patient was tachycardic and hypotensive patient rapidly intubated patient did have white count of 15.4 which is down to 13.8 did have elevated BUN and creatinine urine has been negative this admission holland PCR was negative patient did have a chest x-ray pulmonary edema slightly increased compared to last exam repeat chest x-ray this morning slight interval improvement in aeration patient blood cultures came back positive with coagulase-negative staph that has prompted this infectious disease consultation sputum cultures with Aracely species patient is currently being treated with vancomycin and Zosyn, most of the information has been obtained from review the chart as the patient herself was not provide any history Review of system: Positive point has been mentioned in HPI complete review could not be obtained because of underlying mental status . Past medical history : Reviewed, documented below Past surgical history : Reviewed, documented below Social history: Reviewed, documented below Medications: Reviewed, as documented below EXAMINATION: Vital sigans= Reviewed and documented below GENERAL DESCRIPTION: Middle-aged female intubated on the vent HEENT: Shows Pallor , no scleral icterus. Oral mucous membrane is dry. NECK: Trachea central, no thyromegaly. LUNGS: Unlabored breathing. Decreased breath sound at the base. No wheeze or crackle. HEART: S1, S2, regular rate and rhythm. ABDOMEN: Soft, no tenderness , guarding or rigidity EXTREMITIES: No edema of feet. SKIN: No rash, no masses palpable. NEUROLOGICAL: The patient is sedated on the vent LABS AND RADIOLOGY: Reviewed results see below Assessment : 1-patient presented to hospital with sepsis in this patient was noticed to be unresponsive with concern for possible aspiration pneumonia to the likely etiology of her illness in this patient who did have history of recent E. coli UTI and sepsis however urine has been negative in this admission abdominal soft nontender examination and no evidence of any cellulitis 2-positive blood culture with staph epi likely skin contaminant Plan: 1-discontinue vancomycin decrease risk of nephrotoxicity 2-continue patient on Zosyn 3-repeat blood culture as well as sputum culture We will follow on clinical condition and cultures to further adjust medication if needed Thank you for this consultation we will follow the patient along with you Past Medical History Past Medical History: No Reported History Additional Past Medical History / Comment(s): UTI, Left tibial fx, History of Any Multi-Drug Resistant Organisms: None Reported Past Surgical History: Cardiac Valve Replacement Additional Past Surgical History / Comment(s): left ovary removed Past Anesthesia/Blood Transfusion Reactions: No Reported Reaction Past Psychological History: Schizoaffective Disorder, Schizophrenia Smoking Status: Current every day smoker Past Alcohol Use History: None Reported Past Drug Use History: None Reported - Past Family History Mother History Unknown: Yes Father History Unknown: Yes Medications and Allergies Home Medications Medication Instructions Recorded Confirmed Type DULoxetine HCL [Cymbalta] 30 mg PO DAILY 30 Days capsule. 08/13/20 06/16/21 Rx Albuterol Inhaler [Ventolin Hfa 2 puff INHALATION RT-Q4H PRN 02/21/21 06/16/21 History Inhaler] Aspirin 81 mg PO DAILY #30 chew 02/25/21 06/16/21 Rx Donepezil [Aricept] 5 mg PO DAILY 06/16/21 06/16/21 History Folic Acid 1 mg PO DAILY 06/16/21 06/16/21 History Heparin Sodium,Porcine [Heparin 5,000 unit SQ Q8HR 06/16/21 06/16/21 History Sodium] Ibuprofen [Motrin Ib] 200 mg PO Q6H PRN 06/16/21 06/16/21 History Levothyroxine Sodium [Synthroid] 50 mcg PO DAILY@0500 06/16/21 06/16/21 History Melatonin 3 mg PO HS PRN 06/16/21 06/16/21 History Pantoprazole [Protonix] 40 mg PO TID 06/16/21 06/16/21 History Potassium Chloride [Klor-Con 20] 40 meq PO DAILY 06/16/21 06/16/21 History Allergies Allergy/AdvReac Type Severity Reaction Status Date / Time acetaminophen [From Vicodin] Allergy Rash/Hives Verified 06/16/21 07:27 hydrocodone [From Vicodin] Allergy Rash/Hives Verified 06/16/21 07:27 Physical Exam Vitals: Vital Signs Temp Pulse Resp BP Pulse Ox 06/18/21 15:00 133 H 26 H 80 L 06/18/21 14:45 140 H 25 H 78 L 06/18/21 14:30 141 H 25 H 98 06/18/21 14:15 81 23 98 06/18/21 14:00 82 24 97 06/18/21 13:45 88 27 H 95 06/18/21 13:30 91 30 H 99 06/18/21 13:15 80 20 98 06/18/21 13:00 86 21 96 06/18/21 12:45 84 22 97 06/18/21 12:30 91 42 H 06/18/21 12:15 89 21 92 L 06/18/21 12:00 98.0 F 83 18 92 L 06/18/21 11:45 78 22 94 L 06/18/21 11:30 80 23 93 L 06/18/21 11:21 79 06/18/21 11:15 81 16 96 06/18/21 11:13 85 06/18/21 11:00 87 28 H 94 L 06/18/21 10:45 84 28 H 96 06/18/21 10:30 88 27 H 91 L 06/18/21 10:15 90 27 H 93 L 06/18/21 10:00 87 32 H 06/18/21 09:45 85 26 H 06/18/21 09:30 84 26 H 06/18/21 09:15 89 28 H 06/18/21 09:00 87 29 H 86 L 06/18/21 08:45 85 23 96 06/18/21 08:00 99.0 F 81 22 96 06/18/21 07:00 80 23 98 06/18/21 06:00 80 25 H 90 L 06/18/21 05:00 78 26 H 95 06/18/21 04:00 98.2 F 82 27 H 95 06/18/21 03:00 80 26 H 96 06/18/21 02:00 80 20 95 06/18/21 01:00 81 20 94 L 06/18/21 00:20 76 23 94 L 06/18/21 00:00 98 F 80 23 92 L 06/17/21 23:00 80 23 93 L 06/17/21 22:00 80 23 98 06/17/21 21:00 84 27 H 97 06/17/21 20:22 75 06/17/21 20:14 75 06/17/21 20:00 97.6 F 77 26 H 99 06/17/21 19:00 80 26 H 97 06/17/21 18:00 78 26 H 98 06/17/21 17:00 78 26 H 96 06/17/21 16:25 82 06/17/21 16:13 81 06/17/21 16:00 98.9 F 81 26 H 84/58 95 Intake and Output 06/18/21 06/18/21 06/18/21 06:59 14:59 22:59 Intake Total 2042.036 1823.836 86 Output Total 510 675 150 Balance 4173.631 0857.836 -64 Intake: IV 1000 375 Bicarb 1000 375 Intake, IV Titration 254.036 610.836 50 Amount Amiodarone 450 mg In 204.449 135.836 Dextrose 5% in Water 250 ml @ 0.5 MG/MIN 16.667 mls/hr IV .Q15H NIESHA Rx#: [id number] Fluconazole in NaCl,Iso- 100 Osm 200 mg In Saline 1 100ml.bag @ 100 mls/hr IVPB DAILY NIESHA Rx#: [id number] Norepinephrine 32 mg In 49.587 Sodium Chloride 0.9% 218 ml @ 0.05 MCG/KG/MIN 2. 126 mls/hr IV .Q24H NIESHA Rx#:[id number] Piperacillin-Tazobactam 3 25 .375 gm In Sodium Chloride 0.9% 100 ml @ 25 mls/hr IVPB Q8HR NIESHA Rx# :[id number] Sodium Chloride 0.45% 1, 250 50 000 ml @ 50 mls/hr IV . Q20H NIESHA Rx#:[id number] levETIRAcetam IV 500 mg 100 In Sodium Chloride 0.9% 100 ml @ 400 mls/hr IVPB Q12HR NIESHA Rx#:[id number] Tube Feeding 288 288 36 Other 500 550 Output: Urine 510 675 150 Other: Voiding Method Indwelling Catheter Indwelling Catheter # Bowel Movements 2 Weight 106.8 kg ABP, PAP, CO, CI - Last 8 Hours Arterial Blood Pressure 88/55 Arterial Blood Pressure 98/57 Arterial Blood Pressure 106/58 Arterial Blood Pressure 103/46 Arterial Blood Pressure 101/45 Arterial Blood Pressure 96/49 Arterial Blood Pressure 126/55 Arterial Blood Pressure 105/46 Arterial Blood Pressure 104/46 Arterial Blood Pressure 98/44 Arterial Blood Pressure 114/47 Arterial Blood Pressure 122/55 Arterial Blood Pressure 118/54 Arterial Blood Pressure 122/56 Arterial Blood Pressure 117/52 Arterial Blood Pressure 125/59 Arterial Blood Pressure 123/54 Arterial Blood Pressure 116/57 Arterial Blood Pressure 110/54 Arterial Blood Pressure 125/55 Arterial Blood Pressure 106/66 Arterial Blood Pressure 120/55 Arterial Blood Pressure 119/55 Arterial Blood Pressure 132/54 Arterial Blood Pressure 122/56 Arterial Blood Pressure 113/54 Arterial Blood Pressure 123/61 Results CBC & Chem 7: 06/18/21 03:45 06/18/21 03:45 Labs: Abnormal Lab Results - Last 24 Hours (Table) 06/17/21 06/17/21 06/18/21 Range/Units 15:52 23:48 03:45 WBC (3.8-10.6) k/uL RBC (3.80-5.40) m/uL Hgb (11.4-16.0) gm/dL Hct (34.0-46.0) % MCV (80.0-100.0) fL RDW (11.5-15.5) % Plt Count (150-450) k/uL Neutrophils # (1.3-7.7) k/uL Lymphocytes # (1.0-4.8) k/uL PT 13.8 H (9.0-12.0) sec INR 1.4 H (<1.2) ABG pH (7.35-7.45) ABG pCO2 (35-45) mmHg ABG pO2 (83-108) mmHg ABG O2 Saturation (94-97) % Sodium 148 H (137-145) mmol/L Potassium 3.1 L (3.5-5.1) mmol/L Chloride 114 H (98-107) mmol/L Carbon Dioxide 21 L (22-30) mmol/L BUN 62 H (7-17) mg/dL Creatinine 2.29 H (0.52-1.04) mg/dL Glucose 181 H (74-99) mg/dL POC Glucose (mg/dL) 133 H (75-99) mg/dL Calcium 7.5 L (8.4-10.2) mg/dL AST (14-36) U/L ALT (4-34) U/L Total Protein (6.3-8.2) g/dL Albumin (3.5-5.0) g/dL 06/18/21 06/18/21 06/18/21 Range/Units 03:45 03:45 05:30 WBC 13.8 H (3.8-10.6) k/uL RBC 3.16 L (3.80-5.40) m/uL Hgb 10.7 L (11.4-16.0) gm/dL Hct 32.2 L (34.0-46.0) % MCV 101.8 H (80.0-100.0) fL RDW 17.9 H (11.5-15.5) % Plt Count 132 L (150-450) k/uL Neutrophils # 12.6 H (1.3-7.7) k/uL Lymphocytes # 0.8 L (1.0-4.8) k/uL PT (9.0-12.0) sec INR (<1.2) ABG pH 7.46 H (7.35-7.45) ABG pCO2 33 L (35-45) mmHg ABG pO2 117 H (83-108) mmHg ABG O2 Saturation 99.5 H (94-97) % Sodium (137-145) mmol/L Potassium (3.5-5.1) mmol/L Chloride 112 H (98-107) mmol/L Carbon Dioxide 21 L (22-30) mmol/L BUN 53 H (7-17) mg/dL Creatinine 1.68 H (0.52-1.04) mg/dL Glucose 224 H (74-99) mg/dL POC Glucose (mg/dL) (75-99) mg/dL Calcium 7.8 L (8.4-10.2) mg/dL AST 495 H (14-36) U/L ALT 527 H (4-34) U/L Total Protein 5.7 L (6.3-8.2) g/dL Albumin 2.4 L (3.5-5.0) g/dL 06/18/21 06/18/21 Range/Units 06:09 11:47 WBC (3.8-10.6) k/uL RBC (3.80-5.40) m/uL Hgb (11.4-16.0) gm/dL Hct (34.0-46.0) % MCV (80.0-100.0) fL RDW (11.5-15.5) % Plt Count (150-450) k/uL Neutrophils # (1.3-7.7) k/uL Lymphocytes # (1.0-4.8) k/uL PT (9.0-12.0) sec INR (<1.2) ABG pH (7.35-7.45) ABG pCO2 (35-45) mmHg ABG pO2 (83-108) mmHg ABG O2 Saturation (94-97) % Sodium (137-145) mmol/L Potassium (3.5-5.1) mmol/L Chloride (98-107) mmol/L Carbon Dioxide (22-30) mmol/L BUN (7-17) mg/dL Creatinine (0.52-1.04) mg/dL Glucose (74-99) mg/dL POC Glucose (mg/dL) 166 H 118 H (75-99) mg/dL Calcium (8.4-10.2) mg/dL AST (14-36) U/L ALT (4-34) U/L Total Protein (6.3-8.2) g/dL Albumin (3.5-5.0) g/dL Microbiology - Last 24 Hours (Table) 06/16/21 02:10 Gram Stain - Final Sputum Sputum Culture - Final Aracely sp,not albicans/galbr 06/16/21 03:05 Blood Culture Gram Stain - Preliminary Blood Blood Culture - Preliminary Coagulase Negative Staph
[2021-06-18 23:58] LABS: Glucose,Whole Blood 182 mg/dL (75-99)
[2021-06-19 00:12] LABS: Glucose,Whole Blood 172 mg/dL (75-99)
[2021-06-19] MEDS: PIPERACILLIN-TAZOBACTAM 3.375 GM in SODIUM CHLORIDE 0.9% 100 ML IVPB SCH ×3 (00:15→16:30)
[2021-06-19] MEDS: INSULIN ASPART (NovoLOG) 100 UNIT/ML VIAL SQ SCH ×4 (00:16→20:09)
[2021-06-19 04:45] LABS: Anisocytosis Slight; Basophils % (A) 0 %; Eosinophils % (A) 0 %; HCT 26.4 % (34.0-46.0); Lymphocytes # (A) 0.9 k/uL (1.0-4.8); Lymphocytes % (A) 9 %; MCH 34.4 pg (25.0-35.0); MCHC 33.7 g/dL (31.0-37.0); MCV 102.2 fL (80.0-100.0); Macrocytosis Moderate; Mean Platelet Volume 10.9; Monocytes # (A) 0.3 k/uL (0-1.0); Monocytes % (A) 3 %; Neutrophils % (A) 87 %; Platelet Count 114 k/uL (150-450); Poikilocytosis Moderate; RBC 2.59 m/uL (3.80-5.40); RDW 17.7 % (11.5-15.5); WBC 10.4 k/uL (3.8-10.6)
[2021-06-19 04:58] LABS: HGB 8.9 gm/dL (11.4-16.0)
[2021-06-19 04:59] LABS: ABG Base Excess 0.2 mmol/L; ABG HCO3 24 mmol/L (21-25); ABG Oxygen Saturation 99.3 % (94-97); ABG PCO2 36 mmHg (35-45); ABG PH 7.44 (7.35-7.45); ABG PO2 113 mmHg (83-108); Allen Test Performed? Yes
[2021-06-19 05:35] LABS: Vancomycin,Random 11.3 ug/mL
[2021-06-19 05:37] LABS: Albumin 2.3 g/dL (3.5-5.0); Calcium 7.8 mg/dL (8.4-10.2); Potassium 2.9 mmol/L (3.5-5.1); Total Protein 5.4 g/dL (6.3-8.2)
[2021-06-19 05:50] LABS: C Reactive Protein 13.3 mg/dL (<1.0)
[2021-06-19] MEDS ORDERED: POTASSIUM BICARBONATE/CIT AC 20 MEQ TABLET.EFF PO ONE ×2 (05:56→05:57)
[2021-06-19] MEDS ORDERED: POTASSIUM CHLORIDE 20 MEQ in WATER FOR INJECTION 1 100ML.BAG IVPB STA (05:56)
[2021-06-19 06:02] LABS: Glucose,Whole Blood 173 mg/dL (75-99)
[2021-06-19] MEDS: NOREPINEPHRINE 32 MG in SODIUM CHLORIDE 0.9% 218 ML IV SCH (06:10)
[2021-06-19] MEDS: SODIUM CHLORIDE 0.45% 1,000 ML IV SCH (06:10)
[2021-06-19] MEDS: IPRATROPIUM-ALBUTEROL 3 ML NEB INHALATION SCH ×4 (07:21→19:22)
--- NOTE | 2021-06-19 08:08 | XR ---
EXAMINATION TYPE: XR chest 1V portable DATE OF EXAM: 06/19/2021 COMPARISON: Chest x-ray 06/18/2021 HISTORY: Intubated, abnormal chest x-ray TECHNIQUE: Single frontal view of the chest is obtained. FINDINGS: Endotracheal tube, NG tube, right jugular central venous catheter are stable and no overly ing appropriate positions. There is no evident pneumothorax. Bilateral airspace disease persists. Car diac mediastinal silhouette is stable. There are overlying artifacts. IMPRESSION: There is no significant interval change. Differential is unchanged.
--- NOTE | 2021-06-19 08:53 | P.PN ---
Subjective Progress Note Date: 06/19/21 56-year-old female patient, a [facility] resident, presented to the emergency department with unresponsiveness. She had altered mentation above and beyond her baseline. I've taken care of this patient approximately a month ago when she came in to the ICU with septic shock secondary to E. coli UTI and sepsis. During this time around, the patient was profoundly hypotensive. She had significant metabolic disturbances and she was also in acute kidney injury. For now, her white cell count is at 18.4. Hemoglobin is at 14.2. She has a platelet count of 399, INR of 1.7 with a PT of 16.9, sodium of 154 with a serum bicarb of 18 and an anion gap of 19 with a potassium level of 5.7, glucose of 206, lactic acid level was quite elevated at 5, troponin of 0.4, abnormal AST of 238, ALT of 128, and the patient's urinalysis was positive only for Proteus. COVID-19 testing was negative. Chest x-ray shows chronic interstitial changes bilaterally consistent with previous history of bibasilar pulmonary fibrosis. The patient was quite hypotensive. The patient was started on pressors. The patient was intubated and placed on a mechanical ventilator in the burst department. She received a total of 2 L of normal saline and currently she is on half normal saline running at 150 mL an hour. She is on a mechanical ventilator on assist control mode at the rate of 14 with a tidal volume of 400 and FiO2 of 5% and a PEEP of 5. Blood gas from today showed a pH of 7.33 with a pCO2 of 33 and pO2 of 146. She is cold and clammy and she has multiple skin lower extremities bilaterally. Urine output is low however is gradually improving. No other history is available. She'll have a history of schiz oaffective disorder. Previous echocardiogram has shown a preserved LV function with an ejection fraction of 55% based on echocardiogram that was done in February 2021. Cardiac rhythm is sinus.. The patient was given a triple lumen catheter in the right IJ. She doesn't have an arterial line for now. She is currently operable for which is running at 30 mcg/kg per minute. She is on norepinephrine infusion at 0.2 mcg/kg per minute. On 06/17/2021, the patient is being seen for a follow-up. This morning, the patient remains intubated on a mechanical ventilator. She remains sedated on propofol is being gradually weaned off that as the patient's underlying mental status. For now, probable running at 15 mcg/kg per minute. She remains deeply sedated and very responsive to painful stimulation. The patient is on a mechanical ventilator. She is an assist-control mode of mechanical ventilation at the rate of 26 with a tidal volume of 400 and FiO2 of 70% with a PEEP of 5. The chest x-ray still showing coarse interstitial infiltrates bilaterally. Note that the patient has underlying pulmonary fibrosis and chronic interstitial changes bilaterally. The blood gases from today showing a pH of 7.37 with a pCO2 of 36 and pO2 of 200 and based on that the FiO2 will be weaned off. This was done and FiO2 of 100%. Meanwhile, hemodynamically, the patient remains hypotensive. Norepinephrine infusion is running at 0.14 mcg/kg per minute. The patient is also on a bicarb infusion running at 1 25 mL an hour. The patient grew gram-positive cocci in clumps clusters and her blood 2 blood cultures and vancomycin was added overnight. She remains on IV cefepime. She is afebrile. Urine output is improved and currently she is producing urine output in order of 6200 mL an hour. Ultrasound the kidneys showed no evidence of any hydronephrosis. White cell count of 18 with a hemoglobin of 11.1.Creatinine is down to 2.9 with a mean of 74. Sodium level is down to 149. Potassium level is down to 3.2. She has a component of non-anion gap metabolic acidosis. Serum bicarb is at 19 with a gap of 12. AST is 592, ALT is 481, alkaline phosphatase is 51. Troponin was 0.4 and 0.1 respectively. COVID-19 testing showed negative COVID-19 infection at this point in time. She has a triple lumen catheter in the right IJ. An arterial line was also established in the right femoral artery. Another issue is that the patient has history of paroxysmal atrial fibrillation. During this current admission, and overnight the patient developed A. fib with RVR. The patient was started on amiodarone per protocol and currently she is on amiodarone at 0.5 mg per minute. She converted back into normal sinus rhythm. Anticoagulation will be initiated with Eliquis. 06/18/2021, I'm seeing this patient for a follow-up. Noted the patient is a complicated case of septic shock is currently intubated on a mechanical ventilator. This morning, she was taken off the sedation. Earlier, the propof ol was running at 15 mcg/kg per minute. It is noticed that the patient was deeply sedated. We stop the sedation as of known yesterday. She remains essentially unresponsive this morning. Upon repeated stimulation, she becomes very tachypneic and tachycardic. Nevertheless, she does not withdraw to painful stimulation. She does not open up her eyes spontaneously. She has a gaze preference to the right inferior direction. He was around 3 mm in size and there sluggish and reactive to light. No seizure activity has been noted. Noted the patient's underlying dementia. She remains on a mechanical ventilator. She is an assist-control mode at the rate of 26 with a tidal volume of 400 and FiO2 of 50% with a PEEP of 5. Blood gases from today showed a pH of 7.46 with a pCO2 of 33 and pO2 of 117. This was done and FiO2 of 50%. Chest x- ray showed adequate positioning of the ET tube. There is some increased interstitial markings bilaterally. OG tube is also in good location. The right lower lobe seems to be better aerated. Cannot rule out the possibility of bibasilar pulmonary infiltrates. Note that the patient is having copious amount of rest or secretions. Earlier sputum culture showed positive Aracely. Otherwise no other microbial growth. Meanwhile, she was quite septic and she was hemodynamically unstable at time of admission. She was resuscitated aggressively with IV fluids. The blood cultures 4 out of 4 came back positive for staph, likely coagulase-negative. She was covered with a combination of Zosyn and vancomycin and this will be continued for now pending further advice from infectious disease. In terms of her fluid balance, the patient is on a bi carb infusion which is still running at the rate of 1 25 mL an hour. His serum bicarb is improvement up to 21. Sodium level is also dropped down to 145 as the patient is also receiving free water flushes through her orogastric tube. From the cardiac standpoint, she has converted into sinus rhythm. She was taken off the amiodarone drip and she is currently on oral amiodarone at a dose of 200 mg by mouth 3 times a day and the patient is also on anticoagulation with Eliquis 5 mg by mouth twice a day. No seizure activity has been noted and the patient remains on Keppra. Blood sugar management is with NovoLog slight scale coverage. The patient is receiving enteral feeding for nutritional support and she is currently on vital a F at the rate of 36 mL an hour. She did have a large bowel movement earlier today. She is afebrile. The son has expressed wishes to proceed with a cause status change into comfort care measures taken account for history and various comorbidities. Further discussion will be done with the family regarding her condition and proceed accordingly. The renal function continues to improve. Creatinine currently is down to 1.68 and the patient is producing adequate amount of urine output. 06/19/2021, the patient is being seen for a follow-up. She remains off sedation for more than 24 hours. She is not communicating pH only grimaces to painful stimulation. She is not withdrawing in the lower extremities. She is not also moving her upper extremities and she shakes and gets a bit restless whenever she is given painful stimulation. She occasionally opens up her eyes. The pupils are still small amount of the 3 mm in size and she has a downward gaze. Her neurologic function as such is still impaired. In terms of her sepsis, the patient continues to have gram-positive cocci in clusters which turned out to be related to a coagulase-negative staph. Infectious disease consultation was obtained. Infection disease was considered the possibility of a contaminant. Nevertheless, the fifth culture also came back positive for gram-positive cocci. Vancomycin level in her system is around 11. She was taken off the vancomycin and she is only on Zosyn for now. White cell count is on a downgoing trend and is down to 10.4. Nevertheless, the patient remains on pressors with norepinephrine infusion running at 0.18 mcg/kg per minute. Her cardiac rhythm is sinus. She remains on amiodarone at 0.5 mg/m. She is also on half-normal saline at the rate of 50 mL an hour. Urine output is adequate. Creatinine is normalized. Blood gases from today shows a pH of 7.44 with a pCO2 of 36 and pO2 of 113 and this is done on a assist-control mode at the rate of 16 with tidal volume of 400 and FiO2 of 50% with a PEEP of 5. The patient is feeling vital high protein at the rate of 36 mL an hour. The family's change her CODE STATUS to DO NOT RESUSCITATE and the family is considering the possibility of withdrawal of care and the final decision is to be done today. No seizure activity has been noted and the patient remains on Keppra. Blood sugar management is with slight scale insulin coverage. She is having a low-grade fever of 100.0F. Urine output is adequate for now. Objective - Vital Signs Vital signs: Vital Signs Temp 99.6 F 06/19/21 04:00 Pulse 61 06/19/21 07:31 Resp 25 H 06/19/21 07:00 BP 102/69 06/18/21 17:30 Pulse Ox 94 L 06/19/21 07:00 Intake & Output 06/18/21 06/19/21 06/19/21 18:59 06:59 18:59 Intake Total 2506.392 1984.457 Output Total 985 1655 Balance 1521.392 329.457 Weight 105.5 kg Intake: IV 475 890 0.45 100 650 0.9 240 Bicarb 375 Intake, IV Titration 749.392 96.457 Amount Amiodarone 450 mg In 135.836 Dextrose 5% in Water 250 ml @ 0.5 MG/MIN 16.667 mls/hr IV .Q15H [facility] Rx#: [id number] Fluconazole in NaCl,Iso- 100 Osm 200 mg In Saline 1 100ml.bag @ 100 mls/hr IVPB DAILY [facility] Rx#: [id number] Norepinephrine 32 mg In 38.556 96.457 Sodium Chloride 0.9% 218 ml @ 0.05 MCG/KG/MIN 2. 126 mls/hr IV .Q24H [facility] Rx#:[id number] Piperacillin-Tazobactam 3 25 .375 gm In Sodium Chloride 0.9% 100 ml @ 25 mls/hr IVPB Q8HR [facility] Rx# :[id number] Sodium Chloride 0.45% 1, 350 000 ml @ 50 mls/hr IV . Q20H [facility] Rx#:[id number] levETIRAcetam IV 500 mg 100 In Sodium Chloride 0.9% 100 ml @ 400 mls/hr IVPB Q12HR [facility] Rx#:[id number] Tube Feeding 432 468 Other 850 530 Output: Urine 985 755 Stool 900 Other: Voiding Method Indwelling Catheter Indwelling Catheter # Bowel Movements 2 ABP, PAP, CO, CI - Last Documented Arterial Blood Pressure 135/54 - Exam Gen. appearance, the patient is off sedation the patient remains unresponsive at this point in time., comfortable no acute distress. She is intubated on a [facility] ventilator. Orogastric and orotracheal tube are both in place. Head exam was generally normal. There was no scleral icterus or corneal arcus. Mucous membranes were moist. Neck was supple and without jugular venous distension, thyromegaly, or carotid bruits. Carotids were easily palpable bilaterally. There was no adenopathy. Lungs were clear to auscultation and percussion, and with normal diaphragmatic excursion. No wheezes or rales were noted. Cardiac exam revealed the PMI to be normally situated and sized. The rhythm was regular and no extrasystoles were noted during several minutes of auscultation. The first and second heart sounds were normal and physiologic splitting of the second heart sound was noted. There were no murmurs, rubs, clicks, or gallops. Abdominal exam revealed normal bowel sounds. The abdomen was soft, non-tender, and without masses, organomegaly, or appreciable enlargement of the abdominal aorta. Examination of the extremities revealed v weak radial, femoral and pedal pulses. There was no cyanosis, clubbing and the patient is developing edema in all 4 e xtremities. Diminished pulses in all 4 extremities and the patient has been cold and clammy. Examination of the skin revealed no evidence of significant rashes, suspicious appearing nevi or other concerning lesions. Neurologically lethargic yet arousable. No focal logical deficits. Pupils are equal and reactive to light. No facial asymmetry. No neck stiffness. No nystagmus. There is a preferential gaze to the right inferior direction. The patient is not responding to any painful stimulation. She has been off sedation since noontime yesterday. No clonus. Motor function is reduced in all 4 extremities and the patient has global weakness. Sensory cannot be adequately assessed. Reflexes equal and symmetrical. Neurologically she is still impaired and she remained unresponsive. She grimaces only to painful stimulation. She does not move. She continues to have a downward gaze with pupils of around 2-3 mm in size. - Labs CBC & Chem 7: 06/19/21 04:30 06/19/21 04:30 Labs: Abnormal Lab Results - Last 24 Hours (Table) 06/18/21 06/18/21 06/18/21 Range/Units 11:47 18:43 23:55 RBC (3.80-5.40) m/uL Hgb (11.4-16.0) gm/dL Hct (34.0-46.0) % MCV (80.0-100.0) fL RDW (11.5-15.5) % Plt Count (150-450) k/uL Neutrophils # (1.3-7.7) k/uL Lymphocytes # (1.0-4.8) k/uL ABG pO2 (83-108) mmHg ABG O2 Saturation (94-97) % Potassium (3.5-5.1) mmol/L Chloride (98-107) mmol/L BUN (7-17) mg/dL Glucose (74-99) mg/dL POC Glucose (mg/dL) 118 H 166 H 182 H (75-99) mg/dL Calcium (8.4-10.2) mg/dL AST (14-36) U/L ALT (4-34) U/L C-Reactive Protein (<1.0) mg/dL Total Protein (6.3-8.2) g/dL Albumin (3.5-5.0) g/dL 06/19/21 06/19/21 06/19/21 Range/Units 00:10 04:30 04:30 RBC 2.59 L (3.80-5.40) m/uL Hgb 8.9 L D (11.4-16.0) gm/dL Hct 26.4 L (34.0-46.0) % MCV 102.2 H (80.0-100.0) fL RDW 17.7 H (11.5-15.5) % Plt Count 114 L (150-450) k/uL Neutrophils # 9.0 H (1.3-7.7) k/uL Lymphocytes # 0.9 L (1.0-4.8) k/uL ABG pO2 (83-108) mmHg ABG O2 Saturation (94-97) % Potassium (3.5-5.1) mmol/L Chloride (98-107) mmol/L BUN (7-17) mg/dL Glucose (74-99) mg/dL POC Glucose (mg/dL) 172 H (75-99) mg/dL Calcium (8.4-10.2) mg/dL AST (14-36) U/L ALT (4-34) U/L C-Reactive Protein 13.3 H (<1.0) mg/dL Total Protein (6.3-8.2) g/dL Albumin (3.5-5.0) g/dL 06/19/21 06/19/21 06/19/21 Range/Units 04:30 04:37 06:00 RBC (3.80-5.40) m/uL Hgb (11.4-16.0) gm/dL Hct (34.0-46.0) % MCV (80.0-100.0) fL RDW (11.5-15.5) % Plt Count (150-450) k/uL Neutrophils # (1.3-7.7) k/uL Lymphocytes # (1.0-4.8) k/uL ABG pO2 113 H (83-108) mmHg ABG O2 Saturation 99.3 H (94-97) % Potassium 2.9 L (3.5-5.1) mmol/L Chloride 110 H (98-107) mmol/L BUN 33 H (7-17) mg/dL Glucose 187 H (74-99) mg/dL POC Glucose (mg/dL) 173 H (75-99) mg/dL Calcium 7.8 L (8.4-10.2) mg/dL AST 139 H (14-36) U/L ALT 291 H (4-34) U/L C-Reactive Protein (<1.0) mg/dL Total Protein 5.4 L (6.3-8.2) g/dL Albumin 2.3 L (3.5-5.0) g/dL Microbiology - Last 24 Hours (Table) 06/16/21 02:10 Gram Stain - Final Sputum Sputum Culture - Final Aracely sp,not albicans/galbr Assessment and Plan Plan: 1 Septic shock currently under investigation. The patient has produced gram- positive cocci in clusters in all of the blood cultures. The patient grew gram-positive cocci which is probably coagulase-negative staph and 5 of the blood cultures. She remains on pressors and norepinephrine infusion is running at 0.18 mcg/kg per minute. The patient is running a low-grade fever. Exact source is not clear. Contaminant is less likely knowing that all of the blood cultures came back positive. ID is on the case. Currently on IV Zosyn. No skin breakdowns. The lines are all new. No previous history of epidural abscess. Most recent CAT scan of her lumbar spine showed no evidence of any abscess and the patient had moderate bulge this disease at the level of L3-L4 in addition to moderate to advanced facet arthropathy at the level of L4-L5. Moderate facet arthropathy L5-S1. No abscesses identified. 2 acute hypoxic respiratory failure secondary to above, oxygenation is stable. Chest x-ray was reviewed. Blood gases was reviewed. 3 altered mentation secondary to above, and the patient remains unresponsive , consider metabolic encephalopathy, CAT scan of the brain will be needed. 4 acute kidney injury secondary to above, recovered 5 acute hyperchloremic hypernatremia, recovered 6 history of recurrent UTIs most recent hospitalization was for E. coli UTI and sepsis 7 history of fall with a previous left A. fib/tib fracture, managed cons ervatively by orthopedic surgery with interval 8 history of paroxysmal atrial fibrillation, normal cardiac rhythm is sinus rhythm, currently on amiodarone oral amiodarone on Eliquis 9 obesity with a BMI of 37 10 history of schizoaffective disorder 11 lactic acidosis, improving 12 non-anion gap metabolic acidosis, improving and the bicarb infusion, improved 13 transaminitis 14 Troponin leak 15 pulmonary fibrosis along with some honeycombing and traction bronchiectasis, seen on old CAT scans of the chest. Meanwhile, COVID-19 testing was negative. 16 [facility] resident with a poor baseline performance and functional status plan We'll have a final discussion with the family regarding goals of care. If comfort care measures instituted today, no workup will be done. Otherwise, if ongoing care is requested by the family, the patient will need further workup including a CAT scan of the brain, repeat blood cultures, possible TABBY, and antibiotic adjustments. For now, we are going to continue our supportive care. IV fluids and will be switched to KVO. Continue ventilator support. Continue pressors. Continue amiodarone orally and the patient is currently on anticoagulation with Eliquis Condition is critical Will update the family on her condition. Final decision will be done and further workup based on the family's decision whether to continue with treatment or proceed with comfort care measures. There is a critically care evaluation that was done and more than 30 minutes.
[2021-06-19] MEDS: levETIRAcetam IV 500 MG in SODIUM CHLORIDE 0.9% 100 ML IVPB SCH ×2 (09:50→20:50)
[2021-06-19] MEDS: FLUCONAZOLE IN NACL,ISO-OSM 200 MG in SALINE 1 100ML.BAG IVPB SCH (09:50)
[2021-06-19] MEDS: CHLORHEXIDINE GLUCONATE 15 ML CUP MUCOUS MEM SCH ×2 (09:51→20:51)
[2021-06-19] MEDS: PANTOPRAZOLE 40 MG/10 ML VIAL IV SCH (09:51)
[2021-06-19] MEDS: APIXABAN 5 MG TAB PO SCH ×2 (09:52→20:51)
[2021-06-19] MEDS: AMIODARONE 200 MG TAB PO SCH ×2 (09:52→20:51)
--- NOTE | 2021-06-19 10:36 | P.PN ---
Subjective Patient is seen in follow-up for acute kidney injury and electrolyte imbalance. Renal function is improving. Nonoliguric. Remains intubated. On Levophed. Went back into A. fib with RVR yesterday afternoon and is back on amiodarone drip Sodium level down to 140. Blood cultures are positive for gram-positive cocci/coag-negative staph. Vital signs are stable. On vasopressor support. General: The patient appeared well nourished and normally developed. HEENT: Intubated. LUNGS: Breath sounds decreased. HEART: Rate and Rhythm are regular. ABDOMEN: Soft, no distention. Obese. EXTREMITITES: Trace edema. Objective - Vital Signs Vital signs: Vital Signs Temp 99.6 F 06/19/21 04:00 Pulse 61 06/19/21 07:31 Resp 25 H 06/19/21 07:00 BP 102/69 06/18/21 17:30 Pulse Ox 94 L 06/19/21 07:00 Intake & Output 06/18/21 06/19/21 06/19/21 18:59 06:59 18:59 Intake Total 2506.392 1984.457 Output Total 985 1655 Balance 1521.392 329.457 Weight 105.5 kg Intake: IV 475 890 0.45 100 650 0.9 240 Bicarb 375 Intake, IV Titration 749.392 96.457 Amount Amiodarone 450 mg In 135.836 Dextrose 5% in Water 250 ml @ 0.5 MG/MIN 16.667 mls/hr IV .Q15H [facility] Rx#: [id number] Fluconazole in NaCl,Iso- 100 Osm 200 mg In Saline 1 100ml.bag @ 100 mls/hr IVPB DAILY [facility] Rx#: [id number] Norepinephrine 32 mg In 38.556 96.457 Sodium Chloride 0.9% 218 ml @ 0.05 MCG/KG/MIN 2. 126 mls/hr IV .Q24H [facility] Rx#:[id number] Piperacillin-Tazobactam 3 25 .375 gm In Sodium Chloride 0.9% 100 ml @ 25 mls/hr IVPB Q8HR [facility] Rx# :[id number] Sodium Chloride 0.45% 1, 350 000 ml @ 50 mls/hr IV . Q20H [facility] Rx#:[id number] levETIRAcetam IV 500 mg 100 In Sodium Chloride 0.9% 100 ml @ 400 mls/hr IVPB Q12HR [facility] Rx#:[id number] Tube Feeding 432 468 Other 850 530 Output: Urine 985 755 Stool 900 Other: Voiding Method Indwelling Catheter Indwelling Catheter # Bowel Movements 2 ABP, PAP, CO, CI - Last Documented Arterial Blood Pressure 135/54 - Labs CBC & Chem 7: 06/19/21 04:30 06/19/21 04:30 Labs: Abnormal Lab Results - Last 24 Hours (Table) 06/18/21 06/18/21 06/18/21 Range/Units 11:47 18:43 23:55 RBC (3.80-5.40) m/uL Hgb (11.4-16.0) gm/dL Hct (34.0-46.0) % MCV (80.0-100.0) fL RDW (11.5-15.5) % Plt Count (150-450) k/uL Neutrophils # (1.3-7.7) k/uL Lymphocytes # (1.0-4.8) k/uL ABG pO2 (83-108) mmHg ABG O2 Saturation (94-97) % Potassium (3.5-5.1) mmol/L Chloride (98-107) mmol/L BUN (7-17) mg/dL Glucose (74-99) mg/dL POC Glucose (mg/dL) 118 H 166 H 182 H (75-99) mg/dL Calcium (8.4-10.2) mg/dL AST (14-36) U/L ALT (4-34) U/L C-Reactive Protein (<1.0) mg/dL Total Protein (6.3-8.2) g/dL Albumin (3.5-5.0) g/dL 06/19/21 06/19/21 06/19/21 Range/Units 00:10 04:30 04:30 RBC 2.59 L (3.80-5.40) m/uL Hgb 8.9 L D (11.4-16.0) gm/dL Hct 26.4 L (34.0-46.0) % MCV 102.2 H (80.0-100.0) fL RDW 17.7 H (11.5-15.5) % Plt Count 114 L (150-450) k/uL Neutrophils # 9.0 H (1.3-7.7) k/uL Lymphocytes # 0.9 L (1.0-4.8) k/uL ABG pO2 (83-108) mmHg ABG O2 Saturation (94-97) % Potassium (3.5-5.1) mmol/L Chloride (98-107) mmol/L BUN (7-17) mg/dL Glucose (74-99) mg/dL POC Glucose (mg/dL) 172 H (75-99) mg/dL Calcium (8.4-10.2) mg/dL AST (14-36) U/L ALT (4-34) U/L C-Reactive Protein 13.3 H (<1.0) mg/dL Total Protein (6.3-8.2) g/dL Albumin (3.5-5.0) g/dL 06/19/21 06/19/21 06/19/21 Range/Units 04:30 04:37 06:00 RBC (3.80-5.40) m/uL Hgb (11.4-16.0) gm/dL Hct (34.0-46.0) % MCV (80.0-100.0) fL RDW (11.5-15.5) % Plt Count (150-450) k/uL Neutrophils # (1.3-7.7) k/uL Lymphocytes # (1.0-4.8) k/uL ABG pO2 113 H (83-108) mmHg ABG O2 Saturation 99.3 H (94-97) % Potassium 2.9 L (3.5-5.1) mmol/L Chloride 110 H (98-107) mmol/L BUN 33 H (7-17) mg/dL Glucose 187 H (74-99) mg/dL POC Glucose (mg/dL) 173 H (75-99) mg/dL Calcium 7.8 L (8.4-10.2) mg/dL AST 139 H (14-36) U/L ALT 291 H (4-34) U/L C-Reactive Protein (<1.0) mg/dL Total Protein 5.4 L (6.3-8.2) g/dL Albumin 2.3 L (3.5-5.0) g/dL Microbiology - Last 24 Hours (Table) 06/16/21 02:10 Gram Stain - Final Sputum Sputum Culture - Final Aracely sp,not albicans/galbr Assessment and Plan Plan: Assessment: 1. Acute kidney injury secondary to ATN secondary to septic shock. Creatinine 3.65 on admission - 1.00 today. Baseline creatinine near 1. No evidence of hydronephrosis noted on kidney ultrasound. 2. Septic shock on Levophed. Blood cultures positive for gram-positive cocci/coag-negative staph. On IV antibiotics. Infectious disease following. 3. Acute hypoxic respiratory failure. On 50% FiO2. 4. Hypernatremia from lack of oral water intake. Improving. 5. Hypokalemia from poor intake and intracellular shifting from IV bicarb. Silvia ng replaced. 6. Metabolic acidosis secondary to acute kidney injury and lactic acidosis. Improved. 7. Hypercalcemia secondary to volume contraction. Resolved. 8. A. fib with RVR on amiodarone. Plan: Maintain tube feeds and free water flushes. Hep-Lock IV fluids. Follow-up cultures. Wean FiO2 and vasopressors. Continue to monitor renal function and urine output. Potassium being replaced. Monitor vancomycin levels. Dose to be adjusted for renal function. Overall prognosis guarded.
[2021-06-19 11:23] LABS: Glucose,Whole Blood 161 mg/dL (75-99)
--- NOTE | 2021-06-19 11:36 | PN ---
PROGRESS NOTE Alva Angel is in a sinus rhythm today. Yesterday she was in atrial fibrillation with a moderate ventricular rate and was also on amiodarone drip. I am recommending that we discontinue the amiodarone drip and place her on oral amiodarone today. She still is intubated and unresponsive, and comfort care is being considered. From a cardiac standpoint, her prognosis remains poor. She was in atrial fibrillation, but she is now in a sinus rhythm. I am recommending that we discontinue IV amiodarone and switch her to oral 200 mg b.i.d. of amiodarone. We will also continue apixaban 5 mg b.i.d. Overall prognosis remains poor. She has multiple comorbid conditions. She has an underlying seizure disorder as well. Blood pressure is 128/70. Pulse rate is 64, sinus. No JVD. S1-S2 heard normally. Short systolic murmur. Lungs reveal ventilator- assisted breath sounds. Abdomen is soft. Central nervous system exam was not performed. IMPRESSION: 1. Paroxysmal atrial fibrillation. 2. Respiratory failure, on ventilator. 3. Probable septic shock with Gram-positive cocci in the blood, on antibiotics. 4. Acute kidney injury. 5. Multiple other comorbid conditions. RECOMMENDATIONS: From a cardiac standpoint, no new recommendations other than switching her to oral amiodarone. If comfort care is going to be initiated, I would then refrain from any aggressive measures. MMODL / IJN: [id number] /
[2021-06-19] MEDS: POTASSIUM CHLORIDE 20 MEQ in WATER FOR INJECTION 1 100ML.BAG IVPB SCH ×2 (12:15→16:30)
--- NOTE | 2021-06-19 14:42 | PN ---
PROGRESS NOTE DATE OF SERVICE: 06/19/2021 REASON FOR FOLLOWUP: 1. Positive blood culture, likely contamination. 2. Possible aspiration pneumonia. INTERVAL HISTORY: The patient is currently afebrile. The patient remains intubated on the vent. The patient is not waking up, per nursing staff. No significant purulent secretions through the ET or diarrhea or any other changes reported by the nursing staff. PHYSICAL EXAMINATION: Blood pressure 112/51 with a pulse of 71, temperature 100.3. She is 94% on 50% FiO2. GENERAL DESCRIPTION: General description is a middle-aged female intubated on the vent. RESPIRATORY SYSTEM: Unlabored breathing. Decreased breath sounds at the bases. No wheeze. HEART: S1, S2. Regular rate and rhythm. ABDOMEN: Soft. No tenderness. LABS: Hemoglobin is 8.9, white count 10.4, BUN of 33, creatinine 1.0. DIAGNOSTIC IMPRESSION AND PLAN: 1. Patient with positive blood cultures, more likely skin contamination, as we do not have any clear source for a positive blood culture with Staph epi. Repeat blood culture has been negative so far. 2. Patient with a fever and unresponsive, concerning for aspiration pneumonia. Patient is covered with Zosyn. Sputum culture has been requested, repeated. Those will be followed and monitor clinical course closely. MMODL / IJN: [id number] /
--- NOTE | 2021-06-19 16:50 | P.PN ---
Progress Note - Text Progress Note Date: 06/19/21 Chief Complaint: Decreased responsiveness History of presenting complaint: This is a 56-year-old patient, follows with Dr. Beltrán at the [facility]. Patient was recently admitted to the hospital in May 05 and transferred on May 10 2 [facility] in [place].Admitted with UTI from cystitis with sepsis, bilateral pneumonia, septic shock, acute kidney injury with ATN.IV fluids. IV ceftriaxone. Admitted to the ICU. The transfer was done for continuous EEG monitoring. On this occasion patient is brought to with unresponsiveness. She was hypotensive. Acute kidney injury. Some abnormal liver enzymes, UA was positive. Patient was negative for COVID-19. Patient was intubated and put on the mechanical ventilator. Has been getting IV fluid boluses. This morning she has received about 4 L of fluids total. Has been in atrial fibrillation. Has or G-tube. Drips include we will affect, propofol, normal saline. FiO2 100% with a PEEP of 5. Febrile Admitted with acute metabolic/toxic encephalopathy from sepsis, septic shock, pneumonia, acute kidney injury likely from ATN, atrial flutter fibrillation rate uncontrolled, metabolic acidosis. June 17: ICU: On the ventilator with FiO2 50 PEEP of 5. Drips include norepinephrine and propofol. Atrial fibrillation rate better controlled. On IV amiodarone. Controlled on IV amiodarone. Blood cultures growing gram-positive cocci. Antibiotics changed to IV Zosyn and vancomycin. Fever is started to come down June 18: ICU: On the ventilator with FiO2 50 PEEP of 5. Drips include norepinephrine. 2 feeding at 36 mL/h. patient has remained afebrile. Patient's son is considering comfort care June 19: ICU: On the ventilator with a PEEP of 5 and FiO2 50%. On norepinephrine drip. OG-tube feeding. Prognosis guarded. Patient's son is talking to the family members. Review of systems:patient intubated Active Medications Albuterol/Ipratropium (Ipratropium-Albuterol 3 Ml Neb) 3 ml INHALATION RT-QID [facility] Last Admin: 06/19/21 15:15 Dose: 3 ml Documented by: Amiodarone HCl (Amiodarone 200 Mg Tab) 200 mg PO BID [facility] Last Admin: 06/19/21 09:52 Dose: 200 mg Documented by: Apixaban (Apixaban 5 Mg Tab) 5 mg PO BID NIESHA; Protocol Last Admin: 06/19/21 09:52 Dose: 5 mg Documented by: Chlorhexidine Gluconate (Chlorhexidine Gluconate 15 Ml Cup) 15 ml MUCOUS MEM BID NIESHA Last Admin: 06/19/21 09:51 Dose: 15 ml Documented by: Norepinephrine Bitartrate 32 (mg/ Sodium Chloride) 250 mls @ 2.126 mls/hr IV .Q24H NIESHA; Protocol Last Titration: 06/19/21 14:12 Dose: 0.12 mcg/kg/min, 5.103 mls/hr Documented by: Levetiracetam 500 mg/ Sodium (Chloride) 105 mls @ 400 mls/hr IVPB Q12HR NIESHA Last Admin: 06/19/21 09:50 Dose: 400 mls/hr Documented by: Piperacillin Sod/Tazobactam (Sod 3.375 gm/ Sodium Chloride) 100 mls @ 25 mls/hr IVPB Q8HR NIESHA Last Admin: 06/19/21 16:30 Dose: 25 mls/hr Documented by: Fluconazole/Sodium Chloride (200 mg/ IV Solution) 100 mls @ 100 mls/hr IVPB DAILY NIESHA Last Admin: 06/19/21 09:50 Dose: 100 mls/hr Documented by: Daptomycin 600 mg/ Sodium (Chloride) 50 mls @ 100 mls/hr IVPB Q24HR NIESHA; Protocol Insulin Aspart (Insulin Aspart (Novolog) 100 Unit/Ml Vial) 0 unit SQ Q6H NIESHA; Protocol Last Admin: 06/19/21 12:15 Dose: 1 unit Documented by: Levothyroxine Sodium (Levothyroxine Ivp 100 Mcg/5 Ml Vial) 50 mcg IV Q48H NIESHA Last Admin: 06/18/21 09:23 Dose: 50 mcg Documented by: Miscellaneous Information (Potassium Replacement Protocol 1 Each Misc) 1 each MISCELLANE DAILY PRN; Protocol PRN Reason: Per Protocol Naloxone HCl (Naloxone 0.4 Mg/Ml 1 Ml Vial) 0.2 mg IV Q2M PRN PRN Reason: Opioid Reversal Pantoprazole Sodium (Pantoprazole 40 Mg/10 Ml Vial) 40 mg IV DAILY [facility] Last Admin: 06/19/21 09:51 Dose: 40 mg Documented by: Past medical history to include: Atrial fibrillation, bibasilar fibrotic lung changes with honeycombing, schizoaffective disorder, nicotine use, in February/2021 patient did have a left tibial plate to and left proximal fibular fracture Social history: ECF. Smoker, until recently. Marijuana use history of Family history: Could not be obtained. Physical examination: VITAL SIGNS: Afebrile, 70, 27, 115 x 51, 99% on the ventilator GENERAL: Laying in bed, sedated EYES: Pupils equal. Conjunctiva normal. HEENT: External appearance of nose and ears normal, oral cavity mucous membranes. ET tube, OG-tube NECK: JVD unable to assess; masses not palpable. HEART: First and second heart sounds are normal; no edema. LUNGS: Respiratory rate increased; decreased breath sounds ABDOMEN: Soft, nontender, liver spleen not palpable, no masses palpable. PSYCH: Unable to assess INVESTIGATIONS, reviewed in the clinical context: June 19: WBC 10.4 hemoglobin 8.9 platelets 114 potassium 2.9 creatinine 1 AST 139 ALT 291 June 18: WBC 13.8 hemoglobin 10.7 platelets 132 potassium 3.7 BUN 53 creatinine 1.68 AST 495 ALT 527 June 17: WBC 15.9 hemoglobin 11 platelets 142, sodium 149 potassium 3.2 (74 creatinine 2.90, bicarb 19 AST 592 ALT 481 Blood cultures growing: Coagulase negative staph WBC 18.4 hemoglobin 14.2 platelets 399, sodium 154 potassium 5.7 BUN 83 creatinine 3.65 lactic acid 5 AST 238 ALT 128 Troponin I 0.148, 0.4-3 EKG tracing personally reviewed by me-atrial flutter with 2 was 21 conduction Chest x-ray film personally reviewed by me-bilateral infiltrates/also some chronicity Previous testing: May 10: BUN 17 creatinine 0.93, AST/ALT both normal CT chest [02/24/2021] chronic parenchymal fibrotic changes greatest in the bases. With honeycombing. It is of groundglass opacities. 2-D echocardiogram: EF 55 have a 60%. [id number] tricuspid regurgitation. Some element of pulmonary hypertension Assessment and plan: -Acute/metabolic/toxic encephalopathy. From sepsis: Slow to respond -Possible pneumonia suspected gram-negative organism, patient has underlying also chronic fibrotic changes IV Zosyn -Positive blood cultures for coagulase-negative staph, possibility of contamination IV daptomycin -Chronic bilateral pulmonary fibrosis with honeycombing Bronchodilators. -Septic shock: Slow to respond On IV levo fed. IV fluids -Questionable seizure on last admission patient was transferred to [facility] in [place] for further workup. Neurology's request records from [facility]. Started on IV Keppra -Acute kidney injury, likely from ATN from sepsis: Significant improvement Admission creatinine 3.65. Patient's creatinine was 0.93 on May 10 -Metabolic and lactic acidosis from renal failure/sepsis: Improved Received IV bicarbonate drip -Persistent atrial flutter-fibrillation, rate better controlled By mouth amiodarone. Eliquis started today by cardiology. -Chronic pulmonary fibrosis especially at the bases with honeycombing -Schizoaffective disorder On Invega -COPD in a smoker DuoNeb. -Hypernatremia from free water deficit: Improved IV fluids. Follow sodium -Hyperkalemia from acute kidney injury: Improved Hydrate patient. -Likely acute ischemic hepatitis from hypotension: Slow to respond Follow-up LFTs. Patient continued on amiodarone per cardiology -Troponin leak from hemodynamic mismatch and sepsis. Not a clinical picture of acute coronary syndrome Been followed by cardiology Remains on IV levo fed. IV Keppra. IV daptomycin and IV Zosyn. On the ventilator. Prognosis guarded. Patient's son is considering comfort measures.
[2021-06-19 18:25] LABS: Glucose,Whole Blood 172 mg/dL (75-99)
[2021-06-19 23:56] LABS: Glucose,Whole Blood 171 mg/dL (75-99)
[2021-06-20] MEDS: PIPERACILLIN-TAZOBACTAM 3.375 GM in SODIUM CHLORIDE 0.9% 100 ML IVPB SCH ×3 (00:39→15:55)
[2021-06-20] MEDS: INSULIN ASPART (NovoLOG) 100 UNIT/ML VIAL SQ SCH ×4 (00:40→19:02)
[2021-06-20] MEDS: POTASSIUM CHLORIDE 20 MEQ in WATER FOR INJECTION 1 100ML.BAG IVPB SCH ×2 (04:15→05:45)
[2021-06-20 04:50] LABS: ABG Base Excess -2.3 mmol/L; ABG HCO3 22 mmol/L (21-25); ABG Oxygen Saturation 99.7 % (94-97); ABG PCO2 33 mmHg (35-45); ABG PH 7.43 (7.35-7.45); ABG PO2 150 mmHg (83-108); ABG TCO2 23 mmol/L (19-24)
[2021-06-20 05:48] LABS: Calcium 8.3 mg/dL (8.4-10.2); Potassium 4.2 mmol/L (3.5-5.1)
[2021-06-20 06:07] LABS: Anisocytosis Slight; HCT 27.2 % (34.0-46.0); HGB 9.3 gm/dL (11.4-16.0); MCH 35.2 pg (25.0-35.0); MCHC 34.1 g/dL (31.0-37.0); MCV 103.4 fL (80.0-100.0); Macrocytosis Moderate; Mean Platelet Volume 10.2; Platelet Count 102 k/uL (150-450); Poikilocytosis Slight; RBC 2.64 m/uL (3.80-5.40); RDW 17.6 % (11.5-15.5); WBC 3.3 k/uL (3.8-10.6)
[2021-06-20] MEDS: NOREPINEPHRINE 32 MG in SODIUM CHLORIDE 0.9% 218 ML IV SCH (07:38)
[2021-06-20] MEDS: IPRATROPIUM-ALBUTEROL 3 ML NEB INHALATION SCH ×4 (07:51→20:36)
--- NOTE | 2021-06-20 08:04 | XR ---
EXAMINATION TYPE: XR chest 1V portable DATE OF EXAM: 06/20/2021 COMPARISON: Chest x-ray 06/19/2021 HISTORY: Intubated TECHNIQUE: Single frontal view of the chest is obtained. FINDINGS: Endotracheal tube, NG tube, right jugular central venous catheter are again noted, there a re overlying leads, artifacts. Cardiac mediastinal silhouette is stable. Bilateral airspace disease p ersists. No evident pneumothorax. IMPRESSION: Findings are similar, correlate for pneumonia, ARDS, edema
[2021-06-20] MEDS: AMIODARONE 200 MG TAB PO SCH ×2 (08:15→23:08)
[2021-06-20] MEDS: FLUCONAZOLE IN NACL,ISO-OSM 200 MG in SALINE 1 100ML.BAG IVPB SCH (08:15)
[2021-06-20] MEDS: CHLORHEXIDINE GLUCONATE 15 ML CUP MUCOUS MEM SCH ×2 (08:15→23:09)
[2021-06-20] MEDS: PANTOPRAZOLE 40 MG/10 ML VIAL IV SCH ×2 (08:16→23:09)
[2021-06-20] MEDS: levETIRAcetam IV 500 MG in SODIUM CHLORIDE 0.9% 100 ML IVPB SCH ×2 (08:17→23:08)
--- NOTE | 2021-06-20 09:24 | P.PN ---
Subjective Progress Note Date: 06/20/21 56-year-old female patient, a senior care resident, presented to the emergency department with unresponsiveness. She had altered mentation above and beyond her baseline. I've taken care of this patient approximately a month ago when she came in to the ICU with septic shock secondary to E. coli UTI and sepsis. During this time around, the patient was profoundly hypotensive. She had significant metabolic disturbances and she was also in acute kidney injury. For now, her white cell count is at 18.4. Hemoglobin is at 14.2. She has a platelet count of 399, INR of 1.7 with a PT of 16.9, sodium of 154 with a serum bicarb of 18 and an anion gap of 19 with a potassium level of 5.7, glucose of 206, lactic acid level was quite elevated at 5, troponin of 0.4, abnormal AST of 238, ALT of 128, and the patient's urinalysis was positive only for Proteus. COVID-19 testing was negative. Chest x-ray shows chronic interstitial changes bilaterally consistent with previous history of bibasilar pulmonary fibrosis. The patient was quite hypotensive. The patient was started on pressors. The patient was intubated and placed on a mechanical ventilator in the burst department. She received a total of 2 L of normal saline and currently she is on half normal saline running at 150 mL an hour. She is on a mechanical ventilator on assist control mode at the rate of 14 with a tidal volume of 400 and FiO2 of 5% and a PEEP of 5. Blood gas from today showed a pH of 7.33 with a pCO2 of 33 and pO2 of 146. She is cold and clammy and she has multiple skin lower extremities bilaterally. Urine output is low however is gradually improving. No other history is available. She'll have a history of schiz oaffective disorder. Previous echocardiogram has shown a preserved LV function with an ejection fraction of 55% based on echocardiogram that was done in February 2021. Cardiac rhythm is sinus.. The patient was given a triple lumen catheter in the right IJ. She doesn't have an arterial line for now. She is currently operable for which is running at 30 mcg/kg per minute. She is on norepinephrine infusion at 0.2 mcg/kg per minute. On 06/17/2021, the patient is being seen for a follow-up. This morning, the patient remains intubated on a mechanical ventilator. She remains sedated on propofol is being gradually weaned off that as the patient's underlying mental status. For now, probable running at 15 mcg/kg per minute. She remains deeply sedated and very responsive to painful stimulation. The patient is on a mechanical ventilator. She is an assist-control mode of mechanical ventilation at the rate of 26 with a tidal volume of 400 and FiO2 of 70% with a PEEP of 5. The chest x-ray still showing coarse interstitial infiltrates bilaterally. Note that the patient has underlying pulmonary fibrosis and chronic interstitial changes bilaterally. The blood gases from today showing a pH of 7.37 with a pCO2 of 36 and pO2 of 200 and based on that the FiO2 will be weaned off. This was done and FiO2 of 100%. Meanwhile, hemodynamically, the patient remains hypotensive. Norepinephrine infusion is running at 0.14 mcg/kg per minute. The patient is also on a bicarb infusion running at 1 25 mL an hour. The patient grew gram-positive cocci in clumps clusters and her blood 2 blood cultures and vancomycin was added overnight. She remains on IV cefepime. She is afebrile. Urine output is improved and currently she is producing urine output in order of 6200 mL an hour. Ultrasound the kidneys showed no evidence of any hydronephrosis. White cell count of 18 with a hemoglobin of 11.1.Creatinine is down to 2.9 with a mean of 74. Sodium level is down to 149. Potassium level is down to 3.2. She has a component of non-anion gap metabolic acidosis. Serum bicarb is at 19 with a gap of 12. AST is 592, ALT is 481, alkaline phosphatase is 51. Troponin was 0.4 and 0.1 respectively. COVID-19 testing showed negative COVID-19 infection at this point in time. She has a triple lumen catheter in the right IJ. An arterial line was also established in the right femoral artery. Another issue is that the patient has history of paroxysmal atrial fibrillation. During this current admission, and overnight the patient developed A. fib with RVR. The patient was started on amiodarone per protocol and currently she is on amiodarone at 0.5 mg per minute. She converted back into normal sinus rhythm. Anticoagulation will be initiated with Eliquis. 06/18/2021, I'm seeing this patient for a follow-up. Noted the patient is a complicated case of septic shock is currently intubated on a mechanical ventilator. This morning, she was taken off the sedation. Earlier, the propof ol was running at 15 mcg/kg per minute. It is noticed that the patient was deeply sedated. We stop the sedation as of known yesterday. She remains essentially unresponsive this morning. Upon repeated stimulation, she becomes very tachypneic and tachycardic. Nevertheless, she does not withdraw to painful stimulation. She does not open up her eyes spontaneously. She has a gaze preference to the right inferior direction. He was around 3 mm in size and there sluggish and reactive to light. No seizure activity has been noted. Noted the patient's underlying dementia. She remains on a mechanical ventilator. She is an assist-control mode at the rate of 26 with a tidal volume of 400 and FiO2 of 50% with a PEEP of 5. Blood gases from today showed a pH of 7.46 with a pCO2 of 33 and pO2 of 117. This was done and FiO2 of 50%. Chest x- ray showed adequate positioning of the ET tube. There is some increased interstitial markings bilaterally. OG tube is also in good location. The right lower lobe seems to be better aerated. Cannot rule out the possibility of bibasilar pulmonary infiltrates. Note that the patient is having copious amount of rest or secretions. Earlier sputum culture showed positive Aracely. Otherwise no other microbial growth. Meanwhile, she was quite septic and she was hemodynamically unstable at time of admission. She was resuscitated aggressively with IV fluids. The blood cultures 4 out of 4 came back positive for staph, likely coagulase-negative. She was covered with a combination of Zosyn and vancomycin and this will be continued for now pending further advice from infectious disease. In terms of her fluid balance, the patient is on a bi carb infusion which is still running at the rate of 1 25 mL an hour. His serum bicarb is improvement up to 21. Sodium level is also dropped down to 145 as the patient is also receiving free water flushes through her orogastric tube. From the cardiac standpoint, she has converted into sinus rhythm. She was taken off the amiodarone drip and she is currently on oral amiodarone at a dose of 200 mg by mouth 3 times a day and the patient is also on anticoagulation with Eliquis 5 mg by mouth twice a day. No seizure activity has been noted and the patient remains on Keppra. Blood sugar management is with NovoLog slight scale coverage. The patient is receiving enteral feeding for nutritional support and she is currently on vital a F at the rate of 36 mL an hour. She did have a large bowel movement earlier today. She is afebrile. The son has expressed wishes to proceed with a cause status change into comfort care measures taken account for history and various comorbidities. Further discussion will be done with the family regarding her condition and proceed accordingly. The renal function continues to improve. Creatinine currently is down to 1.68 and the patient is producing adequate amount of urine output. 06/19/2021, the patient is being seen for a follow-up. She remains off sedation for more than 24 hours. She is not communicating pH only grimaces to painful stimulation. She is not withdrawing in the lower extremities. She is not also moving her upper extremities and she shakes and gets a bit restless whenever she is given painful stimulation. She occasionally opens up her eyes. The pupils are still small amount of the 3 mm in size and she has a downward gaze. Her neurologic function as such is still impaired. In terms of her sepsis, the patient continues to have gram-positive cocci in clusters which turned out to be related to a coagulase-negative staph. Infectious disease consultation was obtained. Infection disease was considered the possibility of a contaminant. Nevertheless, the fifth culture also came back positive for gram-positive cocci. Vancomycin level in her system is around 11. She was taken off the vancomycin and she is only on Zosyn for now. White cell count is on a downgoing trend and is down to 10.4. Nevertheless, the patient remains on pressors with norepinephrine infusion running at 0.18 mcg/kg per minute. Her cardiac rhythm is sinus. She remains on amiodarone at 0.5 mg/m. She is also on half-normal saline at the rate of 50 mL an hour. Urine output is adequate. Creatinine is normalized. Blood gases from today shows a pH of 7.44 with a pCO2 of 36 and pO2 of 113 and this is done on a assist-control mode at the rate of 16 with tidal volume of 400 and FiO2 of 50% with a PEEP of 5. The patient is feeling vital high protein at the rate of 36 mL an hour. The family's change her CODE STATUS to DO NOT RESUSCITATE and the family is considering the possibility of withdrawal of care and the final decision is to be done today. No seizure activity has been noted and the patient remains on Keppra. Blood sugar management is with slight scale insulin coverage. She is having a low-grade fever of 100.0F. Urine output is adequate for now. 06/20/2021, I'm seeing this patient for a follow-up. The patient is still off sedation and for the third day and ultimately have not seen a reasonable neurologic recovery. My plan was to scan the patient's brain. Nevertheless, there was ingestion that the patient was going to go into comfort care measures and for that reason the CAT scan of the brain was not done. We are still awaiting final decision from the family in terms of comfort care measures/end-of-life care. Furthermore, this morning, the patient had a bout of GI bleeds with seems to be a upper GI bleed. We are going to keep the tube feeds on hold for now. We'll put the patient IV Protonix and monitor his hemoglobin and this will be managed conservatively. She remains on a mechanical ventilator. She is on assist control mode at the rate of 60 with a tidal volume of 400 and FiO2 of 40% with a PEEP of 5. The blood gases from today shows a pH of 7.43 with a pCO2 of 33 and pO2 of 150. As such, oxygenation has not been issue for this patient and the patient's pulse ox is currently at 98%. Chest x- ray from today is showing no significant interval change. She was in a good location. Findings are essentially stable with some increased interstitial markings bilaterally. Meanwhile, the patient has persistent bacteremia with coagulase-negative staph. ID was involved in a patient was started on daptomycin in combination with Zosyn. The patient is also on Diflucan. The white cell count is down to 3. The pro calcitonin level was elevated at 3.58. In terms of her renal failure, the renal function has been improving. Creatinine is down to 0.9 and BUN is at 32. Sodium level is down to 140. The patient is a DNR/DNI CODE STATUS. Blood sugar management is still slight scale coverage. Urine output is adequate. She is unresponsive at this point in time. She does not grimace or withdraw to deep painful stimulation. As mentioned, she's been off pressors and she has been off sedation. In terms of her cardiac rhythm, she is back into normal sinus and she is off amiodarone drip and she is currently on oral amiodarone at a dose of 200 mg twice a day. Anticoagulation was discontinued. Objective - Vital Signs Vital signs: Vital Signs Temp 99.8 F H 06/20/21 08:00 Pulse 100 06/20/21 08:00 Resp 16 06/20/21 08:00 BP 157/82 06/19/21 17:00 Pulse Ox 99 06/20/21 08:00 Intake & Output 06/19/21 06/20/21 06/20/21 18:59 06:59 18:59 Intake Total 7003.667 5435.697 537 Output Total 3513 540 80 Balance -2496.302 1528.697 457 Weight 106.6 kg Intake: IV 250 640 165 0.45 50 0.9 200 240 40 Piperacillin-Tazobactam 3 100 25 .375 gm In Sodium Chloride 0.9% 100 ml @ 25 mls/hr IVPB Q8HR [facility] Rx# :[id number] Potassium Chloride 20 meq 200 In Water For Injection 1 100ml.bag @ 50 mls/hr IVPB ONCE STA Rx#: [id number] levETIRAcetam IV 500 mg 100 100 In Sodium Chloride 0.9% 100 ml @ 400 mls/hr IVPB Q12HR [facility] Rx#:[id number] Intake, IV Titration 658.698 60.697 Amount Fluconazole in NaCl,Iso- 100 Osm 200 mg In Saline 1 100ml.bag @ 100 mls/hr IVPB DAILY [facility] Rx#: [id number] Norepinephrine 32 mg In 58.698 60.697 Sodium Chloride 0.9% 218 ml @ 0.05 MCG/KG/MIN 2. 126 mls/hr IV .Q24H [facility] Rx#:[id number] Piperacillin-Tazobactam 3 200 .375 gm In Sodium Chloride 0.9% 100 ml @ 25 mls/hr IVPB Q8HR [facility] Rx# :[id number] Potassium Chloride 20 meq 200 In Water For Injection 1 100ml.bag @ 50 mls/hr IVPB Q2H [facility] Rx#: [id number] levETIRAcetam IV 500 mg 100 In Sodium Chloride 0.9% 100 ml @ 400 mls/hr IVPB Q12HR [facility] Rx#:[id number] Tube Feeding 108 468 72 Other 900 300 Output: Urine 813 540 80 Stool 2700 Other: Voiding Method Indwelling Catheter Indwelling Catheter Indwelling Catheter ABP, PAP, CO, CI - Last Documented Arterial Blood Pressure 132/71 - Exam Gen. appearance, the patient is off sedation the patient remains unresponsive at this point in time., comfortable no acute distress. She is intubated on a mechanical ventilator. Orogastric and orotracheal tube are both in place. Head exam was generally normal. There was no scleral icterus or corneal arcus. Mucous membranes were moist. Neck was supple and without jugular venous distension, thyromegaly, or carotid bruits. Carotids were easily palpable bilaterally. There was no adenopathy. Lungs were clear to auscultation and percussion, and with normal diaphragmatic excursion. No wheezes or rales were noted. Cardiac exam revealed the PMI to be normally situated and sized. The rhythm was regular and no extrasystoles were noted during several minutes of auscultation. The first and second heart sounds were normal and physiologic splitting of the second heart sound was noted. There were no murmurs, rubs, clicks, or gallops. Abdominal exam revealed normal bowel sounds. The abdomen was soft, non-tender, and without masses, organomegaly, or appreciable enlargement of the abdominal aorta. Examination of the extremities revealed v weak radial, femoral and pedal pulses. There was no cyanosis, clubbing and the patient is developing edema in all 4 extremities. Diminished pulses in all 4 extremities and the patient has been cold and clammy. Examination of the skin revealed no evidence of significant rashes, suspicious appearing nevi or other concerning lesions. Neurologically lethargic yet arousable. No focal logical deficits. Pupils are equal and reactive to light. No facial asymmetry. No neck stiffness. No nystagmus. There is a preferential gaze to the right inferior direction. The patient is not responding to any painful stimulation. She has been off sedation since noontime yesterday. No clonus. Motor function is reduced in all 4 extremities and the patient has global weakness. Sensory cannot be adequately assessed. Reflexes equal and symmetrical. Neurologically she is still impaired and she remained unresponsive. She grimaces only to painful stimulation. She does not move. She continues to have a downward gaze with pupils of around 2-3 mm in size. - Labs CBC & Chem 7: 06/20/21 04:50 06/20/21 04:50 Labs: Abnormal Lab Results - Last 24 Hours (Table) 06/19/21 06/19/21 06/19/21 Range/Units 04:30 10:38 11:21 WBC (3.8-10.6) k/uL RBC (3.80-5.40) m/uL Hgb (11.4-16.0) gm/dL Hct (34.0-46.0) % MCV (80.0-100.0) fL MCH (25.0-35.0) pg RDW (11.5-15.5) % Plt Count (150-450) k/uL ABG pCO2 (35-45) mmHg ABG pO2 (83-108) mmHg ABG O2 Saturation (94-97) % Potassium 3.3 L (3.5-5.1) mmol/L Chloride (98-107) mmol/L Carbon Dioxide (22-30) mmol/L BUN (7-17) mg/dL Glucose (74-99) mg/dL POC Glucose (mg/dL) 161 H (75-99) mg/dL Calcium (8.4-10.2) mg/dL Procalcitonin 3.58 H (0.02-0.09) ng/mL 06/19/21 06/19/21 06/20/21 Range/Units 18:24 23:54 04:46 WBC (3.8-10.6) k/uL RBC (3.80-5.40) m/uL Hgb (11.4-16.0) gm/dL Hct (34.0-46.0) % MCV (80.0-100.0) fL MCH (25.0-35.0) pg RDW (11.5-15.5) % Plt Count (150-450) k/uL ABG pCO2 33 L (35-45) mmHg ABG pO2 150 H (83-108) mmHg ABG O2 Saturation 99.7 H (94-97) % Potassium (3.5-5.1) mmol/L Chloride (98-107) mmol/L Carbon Dioxide (22-30) mmol/L BUN (7-17) mg/dL Glucose (74-99) mg/dL POC Glucose (mg/dL) 172 H 171 H (75-99) mg/dL Calcium (8.4-10.2) mg/dL Procalcitonin (0.02-0.09) ng/mL 06/20/21 06/20/21 Range/Units 04:50 04:50 WBC 3.3 L (3.8-10.6) k/uL RBC 2.64 L (3.80-5.40) m/uL Hgb 9.3 L (11.4-16.0) gm/dL Hct 27.2 L (34.0-46.0) % MCV 103.4 H (80.0-100.0) fL MCH 35.2 H (25.0-35.0) pg RDW 17.6 H (11.5-15.5) % Plt Count 102 L (150-450) k/uL ABG pCO2 (35-45) mmHg ABG pO2 (83-108) mmHg ABG O2 Saturation (94-97) % Potassium (3.5-5.1) mmol/L Chloride 112 H (98-107) mmol/L Carbon Dioxide 21 L (22-30) mmol/L BUN 32 H (7-17) mg/dL Glucose 185 H (74-99) mg/dL POC Glucose (mg/dL) (75-99) mg/dL Calcium 8.3 L (8.4-10.2) mg/dL Procalcitonin (0.02-0.09) ng/mL Microbiology - Last 24 Hours (Table) 06/19/21 01:18 Gram Stain - Preliminary Sputum Sputum Culture - Preliminary 06/16/21 03:40 Blood Culture Gram Stain - Final Blood Blood Culture - Final Coagulase Negative Staph 06/16/21 03:05 Blood Culture Gram Stain - Final Blood Blood Culture - Final Coagulase Negative Staph Coagulase Negative Staph#2 06/18/21 09:32 Blood Culture - Preliminary Blood No Growth after 24 hours 06/18/21 09:42 Blood Culture - Preliminary Blood No Growth after 24 hours Assessment and Plan Plan: 1 Septic shock currently under investigation. The patient has produced gram- positive cocci in clusters in all of the blood cultures. The patient grew gram- positive cocci which is probably coagulase-negative staph and 5 of the blood cultures. Currently the patient on daptomycin. The patient is off pressors. ID is on the case. The pro calcitonin level was elevated and he was likely the patient had a staphylococcal septicemia. 2 acute hypoxic respiratory failure secondary to above, oxygenation is stable. Chest x-ray was reviewed. Blood gases was reviewed. 3 altered mentation secondary to above, and the patient remains unresponsive , consider metabolic encephalopathy, CAT scan of the brain was not done as the patient is being considered for end-of-life care and withdrawal of care probably within next 24 hours. 4 acute kidney injury secondary to above, recovered 5 acute hyperchloremic hypernatremia, recovered 6 history of recurrent UTIs most recent hospitalization was for E. coli UTI and sepsis 7 history of fall with a previous left A. fib/tib fracture, managed conservatively by orthopedic surgery with interval 8 history of paroxysmal atrial fibrillation, normal cardiac rhythm is sinus rhythm, 9 obesity with a BMI of 37 10 history of schizoaffective disorder 11 lactic acidosis, improving 12 non-anion gap metabolic acidosis, improving and the bicarb infusion, improved 13 transaminitis 14 Troponin leak 15 pulmonary fibrosis along with some honeycombing and traction bronchiectasis, seen on old CAT scans of the chest. Meanwhile, COVID-19 testing was negative. 16 [facility] resident with a poor baseline performance and functional status 17 acute upper GI bleeding plan Continue ventilator support Continue same antibiotic coverage Stop Eliquis, that hemoglobin IV Protonix and hold the tube feeds Maintain supportive care Possible end-of-life care with the next 24 hours and as such no further aggressive workup is done on this patient. Condition is critical Will update the family on her condition. Final decision will be done and further workup based on the family's decision whether to continue with treatment or proceed with comfort care measures. There is a critically care evaluation that was done and more than 30 minutes. Time with Patient: Greater than 30
[2021-06-20] MEDS: LEVOTHYROXINE IVP 100 MCG/5 ML VIAL IV SCH (10:38)
--- NOTE | 2021-06-20 11:10 | P.PN ---
Subjective Patient is seen in follow-up for acute kidney injury and electrolyte imbalance. Renal function is improved. Nonoliguric. Remains intubated. Off Levophed. Tube feeds held due to bleeding. On oral amiodarone. Vital signs are stable. General: The patient appeared well nourished and normally developed. HEENT: Intubated. LUNGS: Breath sounds decreased. HEART: Rate and Rhythm are regular. ABDOMEN: Soft, no distention. Obese. EXTREMITITES: Trace edema. Objective - Vital Signs Vital signs: Vital Signs Temp 99.8 F H 06/20/21 08:00 Pulse 96 06/20/21 10:00 Resp 30 H 06/20/21 10:00 BP 157/82 06/19/21 17:00 Pulse Ox 100 06/20/21 10:00 Intake & Output 06/19/21 06/20/21 06/20/21 18:59 06:59 18:59 Intake Total 6370.539 9942.697 732 Output Total 3513 540 80 Balance -2496.302 1528.697 652 Weight 106.6 kg 106.6 kg Intake: IV 250 640 210 0.45 50 0.9 200 240 60 Piperacillin-Tazobactam 3 100 50 .375 gm In Sodium Chloride 0.9% 100 ml @ 25 mls/hr IVPB Q8HR [facility] Rx# :[id number] Potassium Chloride 20 meq 200 In Water For Injection 1 100ml.bag @ 50 mls/hr IVPB ONCE STA Rx#: [id number] levETIRAcetam IV 500 mg 100 100 In Sodium Chloride 0.9% 100 ml @ 400 mls/hr IVPB Q12HR [facility] Rx#:[id number] Intake, IV Titration 658.698 60.697 150 Amount DAPTOmycin 600 mg In 50 Sodium Chloride 0.9% 50 ml @ 100 mls/hr IVPB Q24HR [facility] Rx#:[id number] Fluconazole in NaCl,Iso- 100 100 Osm 200 mg In Saline 1 100ml.bag @ 100 mls/hr IVPB DAILY [facility] Rx#: [id number] Norepinephrine 32 mg In 58.698 60.697 Sodium Chloride 0.9% 218 ml @ 0.05 MCG/KG/MIN 2. 126 mls/hr IV .Q24H [facility] Rx#:[id number] Piperacillin-Tazobactam 3 200 .375 gm In Sodium Chloride 0.9% 100 ml @ 25 mls/hr IVPB Q8HR [facility] Rx# :[id number] Potassium Chloride 20 meq 200 In Water For Injection 1 100ml.bag @ 50 mls/hr IVPB Q2H [facility] Rx#: [id number] levETIRAcetam IV 500 mg 100 In Sodium Chloride 0.9% 100 ml @ 400 mls/hr IVPB Q12HR [facility] Rx#:[id number] Tube Feeding 108 468 72 Other 900 300 Output: Urine 813 540 80 Stool 2700 Other: Voiding Method Indwelling Catheter Indwelling Catheter Indwelling Catheter ABP, PAP, CO, CI - Last Documented Arterial Blood Pressure 123/58 - Labs CBC & Chem 7: 06/20/21 04:50 06/20/21 04:50 Labs: Abnormal Lab Results - Last 24 Hours (Table) 06/19/21 06/19/21 06/19/21 Range/Units 04:30 10:38 11:21 WBC (3.8-10.6) k/uL RBC (3.80-5.40) m/uL Hgb (11.4-16.0) gm/dL Hct (34.0-46.0) % MCV (80.0-100.0) fL MCH (25.0-35.0) pg RDW (11.5-15.5) % Plt Count (150-450) k/uL ABG pCO2 (35-45) mmHg ABG pO2 (83-108) mmHg ABG O2 Saturation (94-97) % Potassium 3.3 L (3.5-5.1) mmol/L Chloride (98-107) mmol/L Carbon Dioxide (22-30) mmol/L BUN (7-17) mg/dL Glucose (74-99) mg/dL POC Glucose (mg/dL) 161 H (75-99) mg/dL Calcium (8.4-10.2) mg/dL Procalcitonin 3.58 H (0.02-0.09) ng/mL 06/19/21 06/19/21 06/20/21 Range/Units 18:24 23:54 04:46 WBC (3.8-10.6) k/uL RBC (3.80-5.40) m/uL Hgb (11.4-16.0) gm/dL Hct (34.0-46.0) % MCV (80.0-100.0) fL MCH (25.0-35.0) pg RDW (11.5-15.5) % Plt Count (150-450) k/uL ABG pCO2 33 L (35-45) mmHg ABG pO2 150 H (83-108) mmHg ABG O2 Saturation 99.7 H (94-97) % Potassium (3.5-5.1) mmol/L Chloride (98-107) mmol/L Carbon Dioxide (22-30) mmol/L BUN (7-17) mg/dL Glucose (74-99) mg/dL POC Glucose (mg/dL) 172 H 171 H (75-99) mg/dL Calcium (8.4-10.2) mg/dL Procalcitonin (0.02-0.09) ng/mL 06/20/21 06/20/21 Range/Units 04:50 04:50 WBC 3.3 L (3.8-10.6) k/uL RBC 2.64 L (3.80-5.40) m/uL Hgb 9.3 L (11.4-16.0) gm/dL Hct 27.2 L (34.0-46.0) % MCV 103.4 H (80.0-100.0) fL MCH 35.2 H (25.0-35.0) pg RDW 17.6 H (11.5-15.5) % Plt Count 102 L (150-450) k/uL ABG pCO2 (35-45) mmHg ABG pO2 (83-108) mmHg ABG O2 Saturation (94-97) % Potassium (3.5-5.1) mmol/L Chloride 112 H (98-107) mmol/L Carbon Dioxide 21 L (22-30) mmol/L BUN 32 H (7-17) mg/dL Glucose 185 H (74-99) mg/dL POC Glucose (mg/dL) (75-99) mg/dL Calcium 8.3 L (8.4-10.2) mg/dL Procalcitonin (0.02-0.09) ng/mL Microbiology - Last 24 Hours (Table) 06/19/21 01:18 Gram Stain - Preliminary Sputum Sputum Culture - Preliminary 06/16/21 03:40 Blood Culture Gram Stain - Final Blood Blood Culture - Final Coagulase Negative Staph 06/16/21 03:05 Blood Culture Gram Stain - Final Blood Blood Culture - Final Coagulase Negative Staph Coagulase Negative Staph#2 06/18/21 09:32 Blood Culture - Preliminary Blood No Growth after 24 hours 06/18/21 09:42 Blood Culture - Preliminary Blood No Growth after 24 hours Assessment and Plan Plan: Assessment: 1. Acute kidney injury secondary to ATN secondary to septic shock. Creatinine 3.65 on admission - 0.96 today. Baseline creatinine near 1. No evidence of hydronephrosis noted on kidney ultrasound. 2. Septic shock now off Levophed. Blood cultures positive for gram-positive cocci/coag-negative staph. On IV antibiotics. Infectious disease following. 3. Acute hypoxic respiratory failure. On 40% FiO2. 4. Hypernatremia from lack of oral water intake. Improved. 5. Hypokalemia from poor intake and intracellular shifting from IV bicarb. Replaced. Better. 6. Metabolic acidosis secondary to acute kidney injury and lactic acidosis. 7. Hypercalcemia secondary to volume contraction. Resolved. 8. A. fib with RVR on amiodarone. Plan: Maintain tube feeds and free water flushes. Follow-up cultures. Wean FiO2. Continue to monitor renal function and urine output. Overall prognosis guarded. Hospice being considered.
[2021-06-20 12:45] LABS: Glucose,Whole Blood 142 mg/dL (75-99)
--- NOTE | 2021-06-20 13:11 | PN ---
PROGRESS NOTE HISTORY: This is an unfortunate 56-year-old lady who has been admitted with respiratory failure, respiratory arrest, hypoxemia, and is on a ventilator. She also developed atrial fibrillation requiring amiodarone. She is currently in sinus rhythm. However, she has had some rectal bleeding, lisa red blood was seen in the rectum with the stool. I am therefore discontinuing Eliquis. We will continue amiodarone 200 mg b.i.d. through the NG tube. She is in sinus rhythm. She is on Levophed for pressure support. Overall, her prognosis is poor and she is not doing well. Comfort care is being considered and this will probably be decided either today or tomorrow. From a cardiac standpoint, no aggressive intervention current discontinue BP. We will discontinue Eliquis. Continue her amiodarone. PHYSICAL EXAM: Blood pressure is 110/70, pulse rate is about 84 per minute. Appears to have been in sinus rhythm since yesterday. I am recommending that we will continue her current medical regimen. Heart exam reveals S1, S2 with a short systolic murmur. Lungs reveal bilateral respiratory assisted breath sounds. Abdomen exam was deferred. Lower extremity exam was deferred. IMPRESSION: 1. Paroxysmal atrial fibrillation, has now been in sinus rhythm. We will continue amiodarone. 2. Lisa blood per rectum with stool, we will discontinue Eliquis. 3. Sepsis. 4. Respiratory failure, on ventilator. RECOMMENDATIONS: Prognosis is poor. Agree with comfort care. MMODL / IJN: [id number] /
--- NOTE | 2021-06-20 16:16 | P.PN ---
Progress Note - Text Progress Note Date: 06/20/21 Chief Complaint: Decreased responsiveness History of presenting complaint: This is a 56-year-old patient, follows with Dr. Beltrán at the [facility]. Patient was recently admitted to the hospital in May 05 and transferred on May 10 2 [facility] in [place].Admitted with UTI from cystitis with sepsis, bilateral pneumonia, septic shock, acute kidney injury with ATN.IV fluids. IV ceftriaxone. Admitted to the ICU. The transfer was done for continuous EEG monitoring. On this occasion patient is brought to with unresponsiveness. She was hypotensive. Acute kidney injury. Some abnormal liver enzymes, UA was positive. Patient was negative for COVID-19. Patient was intubated and put on the mechanical ventilator. Has been getting IV fluid boluses. This morning she has received about 4 L of fluids total. Has been in atrial fibrillation. Has or G-tube. Drips include we will affect, propofol, normal saline. FiO2 100% with a PEEP of 5. Febrile Admitted with acute metabolic/toxic encephalopathy from sepsis, septic shock, pneumonia, acute kidney injury likely from ATN, atrial flutter fibrillation rate uncontrolled, metabolic acidosis. June 17: ICU: On the ventilator with FiO2 50 PEEP of 5. Drips include norepinephrine and propofol. Atrial fibrillation rate better controlled. On IV amiodarone. Controlled on IV amiodarone. Blood cultures growing gram-positive cocci. Antibiotics changed to IV Zosyn and vancomycin. Fever is started to come down June 18: ICU: On the ventilator with FiO2 50 PEEP of 5. Drips include norepinephrine. 2 feeding at 36 mL/h. patient has remained afebrile. Patient's son is considering comfort care June 19: ICU: On the ventilator with a PEEP of 5 and FiO2 50%. On norepinephrine drip. OG-tube feeding. Prognosis guarded. Patient's son is talking to the family members. June 20: ICU: Ventilator: FiO2 40 and a PEEP of 5. Drips include norepinephrine. Patient been off sedation for 3 days. No meaningful response. Patient has some GI bleed this morning. 2 feeding was held. IV Protonix added. Does not respond to painful stimuli. Review of systems:patient intubated Active Medications Albuterol/Ipratropium (Ipratropium-Albuterol 3 Ml Neb) 3 ml INHALATION RT-QID [facility] Last Admin: 06/20/21 15:32 Dose: 3 ml Documented by: Amiodarone HCl (Amiodarone 200 Mg Tab) 200 mg PO BID [facility] Last Admin: 06/20/21 08:15 Dose: 200 mg Documented by: Chlorhexidine Gluconate (Chlorhexidine Gluconate 15 Ml Cup) 15 ml MUCOUS MEM BID [facility] Last Admin: 06/20/21 08:15 Dose: 15 ml Documented by: Norepinephrine Bitartrate 32 (mg/ Sodium Chloride) 250 mls @ 2.126 mls/hr IV .Q 24H [facility]; Protocol Last Admin: 06/20/21 07:38 Dose: Not Given Documented by: Levetiracetam 500 mg/ Sodium (Chloride) 105 mls @ 400 mls/hr IVPB Q12HR [facility] Last Admin: 06/20/21 08:17 Dose: 400 mls/hr Documented by: Piperacillin Sod/Tazobactam (Sod 3.375 gm/ Sodium Chloride) 100 mls @ 25 mls/hr IVPB Q8HR [facility] Last Admin: 06/20/21 15:55 Dose: 25 mls/hr Documented by: Fluconazole/Sodium Chloride (200 mg/ IV Solution) 100 mls @ 100 mls/hr IVPB DAILY [facility] Last Admin: 06/20/21 08:15 Dose: 100 mls/hr Documented by: Insulin Aspart (Insulin Aspart (Novolog) 100 Unit/Ml Vial) 0 unit SQ Q6H [facility]; Protocol Last Admin: 06/20/21 12:48 Dose: 100 unit Documented by: Levothyroxine Sodium (Levothyroxine Ivp 100 Mcg/5 Ml Vial) 50 mcg IV Q48H [facility] Last Admin: 06/20/21 10:38 Dose: 50 mcg Documented by: Miscellaneous Information (Potassium Replacement Protocol 1 Each Misc) 1 each MISCELLANE DAILY PRN; Protocol PRN Reason: Per Protocol Naloxone HCl (Naloxone 0.4 Mg/Ml 1 Ml Vial) 0.2 mg IV Q2M PRN PRN Reason: Opioid Reversal Pantoprazole Sodium (Pantoprazole 40 Mg/10 Ml Vial) 40 mg IV BID [facility] Past medical history to include: Atrial fibrillation, bibasilar fibrotic lung changes with honeycombing, schizoaffective disorder, nicotine use, in February/2021 patient did have a left tibial plate to and left proximal fibular fracture Social history: ECF. Smoker, until recently. Marijuana use history of Family history: Could not be obtained. Physical examination: VITAL SIGNS: 100.1, 87, 30, 88/43, 98% on the ventilator GENERAL: Laying in bed, does not respond to painful stimuli. EYES: Pupils equal. Conjunctiva normal. HEENT: External appearance of nose and ears normal, oral cavity mucous membranes. ET tube, OG-tube NECK: JVD unable to assess; masses not palpable. HEART: First and second heart sounds are normal; no edema. LUNGS: Respiratory rate increased; decreased breath sounds ABDOMEN: Soft, nontender, liver spleen not palpable, no masses palpable. PSYCH: Unable to assess INVESTIGATIONS, reviewed in the clinical context: June 20: WBC 3.3 hemoglobin 9.3 platelets 102 potassium 4.2 BUN 32 creatinine 0.96. Chest x-ray bilateral airspace disease June 19: WBC 10.4 hemoglobin 8.9 platelets 114 potassium 2.9 creatinine 1 AST 139 ALT 291 June 18: WBC 13.8 hemoglobin 10.7 platelets 132 potassium 3.7 BUN 53 creatinine 1.68 AST 495 ALT 527 June 17: WBC 15.9 hemoglobin 11 platelets 142, sodium 149 potassium 3.2 (74 creatinine 2.90, bicarb 19 AST 592 ALT 481 Blood cultures growing: Coagulase negative staph WBC 18.4 hemoglobin 14.2 platelets 399, sodium 154 potassium 5.7 BUN 83 creatinine 3.65 lactic acid 5 AST 238 ALT 128 Troponin I 0.148, 0.4-3 EKG tracing personally reviewed by me-atrial flutter with 2 was 21 conduction Chest x-ray film personally reviewed by me-bilateral infiltrates/also some chronicity Previous testing: May 10: BUN 17 creatinine 0.93, AST/ALT both normal CT chest [02/24/2021] chronic parenchymal fibrotic changes greatest in the bases. With honeycombing. It is of groundglass opacities. 2-D echocardiogram: EF 55 have a 60%. [id number] tricuspid regurgitation. Some element of pulmonary hypertension Assessment and plan: -Acute/metabolic/toxic encephalopathy. From sepsis: Slow to respond -Possible pneumonia suspected gram-negative organism, patient has underlying also chronic fibrotic changes IV Zosyn -Positive blood cultures for coagulase-negative staph, possibility of contamination IV daptomycin, discontinued -Chronic bilateral pulmonary fibrosis with honeycombing Bronchodilators. -Septic shock: Slow to respond On IV levo fed. IV fluids -Questionable seizure on last admission patient was transferred to [facility] in [place] for further workup. Neurology's request records from [facility]. Started on IV Keppra -Acute kidney injury, likely from ATN from sepsis: Significant improvement Admission creatinine 3.65. Patient's creatinine was 0.93 on May 10 -Metabolic and lactic acidosis from renal failure/sepsis: Improved Received IV bicarbonate drip -Persistent atrial flutter-fibrillation, rate better controlled By mouth amiodarone. Eliquis started today by cardiology. -Chronic pulmonary fibrosis especially at the bases with honeycombing -Schizoaffective disorder On Invega -COPD in a smoker DuoNeb. -Hypernatremia from free water deficit: Improved IV fluids. Follow sodium -Hyperkalemia from acute kidney injury: Improved Hydrate patient. -Likely acute ischemic hepatitis from hypotension: Slow to respond Follow-up LFTs. Patient continued on amiodarone per cardiology -Troponin leak from hemodynamic mismatch and sepsis. Not a clinical picture of acute coronary syndrome Been followed by cardiology -GI bleed. Possible stress gastritis. IV PPI 2 feeding held on IV levo fed. IV Keppra. IV Zosyn. On the ventilator. Tube feeding held. Prognosis guarded
--- NOTE | 2021-06-20 16:23 | PN ---
PROGRESS NOTE DATE OF SERVICE: 06/20/2021 REASON FOR FOLLOWUP: 1. Aspiration pneumonia. 2. Bacteremia. INTERVAL HISTORY: Patient has been running a low-grade fever of 100.1. The patient is currently hemodynamically stable off the pressor support per the nursing staff. No significant purulent secretions through the ET, diarrhea or any other changes reported by the nursing staff. PHYSICAL EXAMINATION: Blood pressure 93/43 with a pulse of 83, temperature 100.1. She is 98% on 40% FiO2. General description is a middle-aged female intubated on the vent. Respiratory system: Unlabored breathing, decreased breath sounds in the bases. No wheeze. Heart S1, S2. Regular rate and rhythm. Abdomen soft, no tenderness. LABS: Hemoglobin is 9.1, white count 3.3, BUN of 32, creatinine 0.96. Blood culture repeat has been negative so far. Sputum repeat culture so far pending. DIAGNOSTIC IMPRESSION AND PLAN: 1. Patient admitted to the hospital with sepsis, aspiration pneumonia. This patient did have unresponsiveness. The patient is covered with Zosyn. 2. Positive blood culture with coagulase negative Staph likely skin contaminant. The patient has been so far covered with daptomycin still running a low-grade fever. However plan for possible hospice tomorrow. Hence will hold on further workup at this point. MMODL / IJN: [id number] / IGOR
[2021-06-20 19:02] LABS: Glucose,Whole Blood 140 mg/dL (75-99)
[2021-06-21 00:30] LABS: Glucose,Whole Blood 133 mg/dL (75-99)
[2021-06-21 01:34] LABS: Glucose,Whole Blood 131 mg/dL (75-99)
[2021-06-21] MEDS: INSULIN ASPART (NovoLOG) 100 UNIT/ML VIAL SQ SCH ×4 (02:38→21:10)
[2021-06-21 02:39] LABS: Glucose,Whole Blood 118 mg/dL (75-99)
[2021-06-21] MEDS: PIPERACILLIN-TAZOBACTAM 3.375 GM in SODIUM CHLORIDE 0.9% 100 ML IVPB SCH ×3 (02:41→18:03)
[2021-06-21 04:36] LABS: Anisocytosis Slight; Basophils % (A) 0 %; Eosinophils # (A) 0.1 k/uL (0-0.7); Eosinophils % (A) 1 %; HCT 24.6 % (34.0-46.0); HGB 8.2 gm/dL (11.4-16.0); Lymphocytes # (A) 1.3 k/uL (1.0-4.8); Lymphocytes % (A) 19 %; MCH 34.3 pg (25.0-35.0); MCHC 33.3 g/dL (31.0-37.0); MCV 103.3 fL (80.0-100.0); Macrocytosis Moderate; Mean Platelet Volume 10.1; Monocytes # (A) 0.3 k/uL (0-1.0); Monocytes % (A) 5 %; Neutrophils # (A) 4.7 k/uL (1.3-7.7); Neutrophils % (A) 71 %; Platelet Count 114 k/uL (150-450); Poikilocytosis Slight; RBC 2.38 m/uL (3.80-5.40); RDW 17.9 % (11.5-15.5); WBC 6.5 k/uL (3.8-10.6)
[2021-06-21 05:17] LABS: ABG Base Excess -2.2 mmol/L; ABG HCO3 22 mmol/L (21-25); ABG Oxygen Saturation 99.5 % (94-97); ABG PCO2 34 mmHg (35-45); ABG PH 7.43 (7.35-7.45); ABG PO2 129 mmHg (83-108); ABG TCO2 23 mmol/L (19-24); Allen Test Performed? Yes
[2021-06-21 05:28] LABS: Calcium 8.2 mg/dL (8.4-10.2); Potassium 3.7 mmol/L (3.5-5.1)
[2021-06-21] MEDS ORDERED: POTASSIUM BICARBONATE/CIT AC 20 MEQ TABLET.EFF NG-TUBE SCH (07:00)
--- NOTE | 2021-06-21 07:20 | XR ---
EXAMINATION TYPE: XR chest 1V portable DATE OF EXAM: 06/21/2021 CLINICAL HISTORY: Difficulty breathing progress study. ARDS, Sepsis, Pneumonia. TECHNIQUE: Single AP portable upright view of the chest is obtained. COMPARISON: Chest x-ray from one day earlier and older studies. FINDINGS: Stable endotracheal and orogastric tubes. Stable right internal jugular central venous cat heter. Cardiac silhouette size stable and within normal limits. Bilateral multifocal opacities redemonstrate d. Osseous structures are intact. IMPRESSION: Bilateral multifocal opacities redemonstrated, no significant change from one day earlier .
[2021-06-21 07:23] LABS: Glucose,Whole Blood 128 mg/dL (75-99)
[2021-06-21] MEDS: IPRATROPIUM-ALBUTEROL 3 ML NEB INHALATION SCH ×4 (07:39→19:30)
[2021-06-21] MEDS ORDERED: ALBUMIN HUMAN 25% 50 ML in EMPTY BAG 1 BAG IVPB ONE (08:00)
--- NOTE | 2021-06-21 08:58 | P.PN ---
Subjective Patient is seen in follow-up for acute kidney injury and electrolyte imbalance. Renal function is improved. Nonoliguric. Remains intubated. On Levophed. Tube feeds held due to bleeding. On oral amiodarone. Vital signs are stable. On low-dose Levophed. General: The patient appeared well nourished and normally developed. HEENT: Intubated. LUNGS: Breath sounds decreased. HEART: Rate and Rhythm are regular. ABDOMEN: Soft, no distention. Obese. EXTREMITITES: Trace edema. Objective - Vital Signs Vital signs: Vital Signs Temp 98 F 06/21/21 04:00 Pulse 62 06/21/21 08:00 Resp 20 06/21/21 08:00 BP 157/82 06/20/21 18:30 Pulse Ox 97 06/21/21 08:00 Intake & Output 06/20/21 06/21/21 06/21/21 18:59 06:59 18:59 Intake Total 2047.242 220 71.675 Output Total 1600 1071 100 Balance 447.242 -851 -28.325 Weight 106.6 kg 103.2 kg Intake: IV 560 220 40 0.9 260 220 40 Piperacillin-Tazobactam 3 200 .375 gm In Sodium Chloride 0.9% 100 ml @ 25 mls/hr IVPB Q8HR [facility] Rx# :[id number] levETIRAcetam IV 500 mg 100 In Sodium Chloride 0.9% 100 ml @ 400 mls/hr IVPB Q12HR [facility] Rx#:[id number] Intake, IV Titration 155.242 31.675 Amount DAPTOmycin 600 mg In 50 Sodium Chloride 0.9% 50 ml @ 100 mls/hr IVPB Q24HR [facility] Rx#:[id number] Fluconazole in NaCl,Iso- 100 Osm 200 mg In Saline 1 100ml.bag @ 100 mls/hr IVPB DAILY [facility] Rx#: [id number] Norepinephrine 32 mg In 5.242 31.675 Sodium Chloride 0.9% 218 ml @ 0.05 MCG/KG/MIN 2. 126 mls/hr IV .Q24H [facility] Rx#:[id number] Tube Feeding 432 Other 900 Output: Gastric Drainage 500 Urine 600 571 100 Stool 1000 Other: Voiding Method Indwelling Catheter Indwelling Catheter Indwelling Catheter ABP, PAP, CO, CI - Last Documented Arterial Blood Pressure 101/47 - Labs CBC & Chem 7: 06/21/21 04:10 06/21/21 04:10 Labs: Abnormal Lab Results - Last 24 Hours (Table) 06/20/21 06/20/21 06/21/21 Range/Units 12:43 19:01 00:28 RBC (3.80-5.40) m/uL Hgb (11.4-16.0) gm/dL Hct (34.0-46.0) % MCV (80.0-100.0) fL RDW (11.5-15.5) % Plt Count (150-450) k/uL Chloride (98-107) mmol/L Carbon Dioxide (22-30) mmol/L BUN (7-17) mg/dL Glucose (74-99) mg/dL POC Glucose (mg/dL) 142 H 140 H 133 H (75-99) mg/dL Calcium (8.4-10.2) mg/dL 06/21/21 06/21/21 06/21/21 Range/Units 01:33 02:37 04:10 RBC 2.38 L (3.80-5.40) m/uL Hgb 8.2 L (11.4-16.0) gm/dL Hct 24.6 L (34.0-46.0) % MCV 103.3 H (80.0-100.0) fL RDW 17.9 H (11.5-15.5) % Plt Count 114 L (150-450) k/uL Chloride (98-107) mmol/L Carbon Dioxide (22-30) mmol/L BUN (7-17) mg/dL Glucose (74-99) mg/dL POC Glucose (mg/dL) 131 H 118 H (75-99) mg/dL Calcium (8.4-10.2) mg/dL 06/21/21 06/21/21 Range/Units 04:10 07:12 RBC (3.80-5.40) m/uL Hgb (11.4-16.0) gm/dL Hct (34.0-46.0) % MCV (80.0-100.0) fL RDW (11.5-15.5) % Plt Count (150-450) k/uL Chloride 113 H (98-107) mmol/L Carbon Dioxide 20 L (22-30) mmol/L BUN 30 H (7-17) mg/dL Glucose 136 H (74-99) mg/dL POC Glucose (mg/dL) 128 H (75-99) mg/dL Calcium 8.2 L (8.4-10.2) mg/dL Microbiology - Last 24 Hours (Table) 06/19/21 16:36 Blood Culture - Preliminary Blood No Growth after 24 hours 06/18/21 09:42 Blood Culture - Preliminary Blood No Growth after 48 hours 06/18/21 09:32 Blood Culture - Preliminary Blood No Growth after 48 hours 06/19/21 01:18 Gram Stain - Preliminary Sputum Sputum Culture - Preliminary Assessment and Plan Plan: Assessment: 1. Acute kidney injury secondary to ATN secondary to septic shock. Creatinine 3.65 on admission - 0.91 today. Baseline creatinine near 1. No evidence of hydronephrosis noted on kidney ultrasound. 2. Septic shock now off Levophed. Blood cultures positive for gram-positive cocci/coag-negative staph. On IV antibiotics. Infectious disease following. 3. Acute hypoxic respiratory failure. On 40% FiO2. 4. Hypernatremia from lack of oral water intake. Improved. 5. Hypokalemia from poor intake and intracellular shifting from IV bicarb. Replaced. Better. 6. Metabolic acidosis secondary to acute kidney injury and lactic acidosis. 7. Hypercalcemia secondary to volume contraction. Resolved. 8. A. fib with RVR on amiodarone. Plan: No changes from nephrology standpoint. Family wants to proceed with comfort measures today.
--- NOTE | 2021-06-21 09:12 | P.PN ---
Subjective Progress Note Date: 06/21/21 56-year-old female patient, a senior living resident, presented to the emergency department with unresponsiveness. She had altered mentation above and beyond her baseline. I've taken care of this patient approximately a month ago when she came in to the ICU with septic shock secondary to E. coli UTI and sepsis. During this time around, the patient was profoundly hypotensive. She had significant metabolic disturbances and she was also in acute kidney injury. For now, her white cell count is at 18.4. Hemoglobin is at 14.2. She has a platelet count of 399, INR of 1.7 with a PT of 16.9, sodium of 154 with a serum bicarb of 18 and an anion gap of 19 with a potassium level of 5.7, glucose of 206, lactic acid level was quite elevated at 5, troponin of 0.4, abnormal AST of 238, ALT of 128, and the patient's urinalysis was positive only for Proteus. COVID-19 testing was negative. Chest x-ray shows chronic interstitial changes bilaterally consistent with previous history of bibasilar pulmonary fibrosis. The patient was quite hypotensive. The patient was started on pressors. The patient was intubated and placed on a mechanical ventilator in the burst department. She received a total of 2 L of normal saline and currently she is on half normal saline running at 150 mL an hour. She is on a mechanical ventilator on assist control mode at the rate of 14 with a tidal volume of 400 and FiO2 of 5% and a PEEP of 5. Blood gas from today showed a pH of 7.33 with a pCO2 of 33 and pO2 of 146. She is cold and clammy and she has multiple skin lower extremities bilaterally. Urine output is low however is gradually improving. No other history is available. She'll have a history of schiz oaffective disorder. Previous echocardiogram has shown a preserved LV function with an ejection fraction of 55% based on echocardiogram that was done in February 2021. Cardiac rhythm is sinus.. The patient was given a triple lumen catheter in the right IJ. She doesn't have an arterial line for now. She is currently operable for which is running at 30 mcg/kg per minute. She is on norepinephrine infusion at 0.2 mcg/kg per minute. On 06/17/2021, the patient is being seen for a follow-up. This morning, the patient remains intubated on a mechanical ventilator. She remains sedated on propofol is being gradually weaned off that as the patient's underlying mental status. For now, probable running at 15 mcg/kg per minute. She remains deeply sedated and very responsive to painful stimulation. The patient is on a mechanical ventilator. She is an assist-control mode of mechanical ventilation at the rate of 26 with a tidal volume of 400 and FiO2 of 70% with a PEEP of 5. The chest x-ray still showing coarse interstitial infiltrates bilaterally. Note that the patient has underlying pulmonary fibrosis and chronic interstitial changes bilaterally. The blood gases from today showing a pH of 7.37 with a pCO2 of 36 and pO2 of 200 and based on that the FiO2 will be weaned off. This was done and FiO2 of 100%. Meanwhile, hemodynamically, the patient remains hypotensive. Norepinephrine infusion is running at 0.14 mcg/kg per minute. The patient is also on a bicarb infusion running at 1 25 mL an hour. The patient grew gram-positive cocci in clumps clusters and her blood 2 blood cultures and vancomycin was added overnight. She remains on IV cefepime. She is afebrile. Urine output is improved and currently she is producing urine output in order of 6200 mL an hour. Ultrasound the kidneys showed no evidence of any hydronephrosis. White cell count of 18 with a hemoglobin of 11.1.Creatinine is down to 2.9 with a mean of 74. Sodium level is down to 149. Potassium level is down to 3.2. She has a component of non-anion gap metabolic acidosis. Serum bicarb is at 19 with a gap of 12. AST is 592, ALT is 481, alkaline phosphatase is 51. Troponin was 0.4 and 0.1 respectively. COVID-19 testing showed negative COVID-19 infection at this point in time. She has a triple lumen catheter in the right IJ. An arterial line was also established in the right femoral artery. Another issue is that the patient has history of paroxysmal atrial fibrillation. During this current admission, and overnight the patient developed A. fib with RVR. The patient was started on amiodarone per protocol and currently she is on amiodarone at 0.5 mg per minute. She converted back into normal sinus rhythm. Anticoagulation will be initiated with Eliquis. 06/18/2021, I'm seeing this patient for a follow-up. Noted the patient is a complicated case of septic shock is currently intubated on a mechanical ventilator. This morning, she was taken off the sedation. Earlier, the propof ol was running at 15 mcg/kg per minute. It is noticed that the patient was deeply sedated. We stop the sedation as of known yesterday. She remains essentially unresponsive this morning. Upon repeated stimulation, she becomes very tachypneic and tachycardic. Nevertheless, she does not withdraw to painful stimulation. She does not open up her eyes spontaneously. She has a gaze preference to the right inferior direction. He was around 3 mm in size and there sluggish and reactive to light. No seizure activity has been noted. Noted the patient's underlying dementia. She remains on a mechanical ventilator. She is an assist-control mode at the rate of 26 with a tidal volume of 400 and FiO2 of 50% with a PEEP of 5. Blood gases from today showed a pH of 7.46 with a pCO2 of 33 and pO2 of 117. This was done and FiO2 of 50%. Chest x- ray showed adequate positioning of the ET tube. There is some increased interstitial markings bilaterally. OG tube is also in good location. The right lower lobe seems to be better aerated. Cannot rule out the possibility of bibasilar pulmonary infiltrates. Note that the patient is having copious amount of rest or secretions. Earlier sputum culture showed positive Aracely. Otherwise no other microbial growth. Meanwhile, she was quite septic and she was hemodynamically unstable at time of admission. She was resuscitated aggressively with IV fluids. The blood cultures 4 out of 4 came back positive for staph, likely coagulase-negative. She was covered with a combination of Zosyn and vancomycin and this will be continued for now pending further advice from infectious disease. In terms of her fluid balance, the patient is on a bi carb infusion which is still running at the rate of 1 25 mL an hour. His serum bicarb is improvement up to 21. Sodium level is also dropped down to 145 as the patient is also receiving free water flushes through her orogastric tube. From the cardiac standpoint, she has converted into sinus rhythm. She was taken off the amiodarone drip and she is currently on oral amiodarone at a dose of 200 mg by mouth 3 times a day and the patient is also on anticoagulation with Eliquis 5 mg by mouth twice a day. No seizure activity has been noted and the patient remains on Keppra. Blood sugar management is with NovoLog slight scale coverage. The patient is receiving enteral feeding for nutritional support and she is currently on vital a F at the rate of 36 mL an hour. She did have a large bowel movement earlier today. She is afebrile. The son has expressed wishes to proceed with a cause status change into comfort care measures taken account for history and various comorbidities. Further discussion will be done with the family regarding her condition and proceed accordingly. The renal function continues to improve. Creatinine currently is down to 1.68 and the patient is producing adequate amount of urine output. 06/19/2021, the patient is being seen for a follow-up. She remains off sedation for more than 24 hours. She is not communicating pH only grimaces to painful stimulation. She is not withdrawing in the lower extremities. She is not also moving her upper extremities and she shakes and gets a bit restless whenever she is given painful stimulation. She occasionally opens up her eyes. The pupils are still small amount of the 3 mm in size and she has a downward gaze. Her neurologic function as such is still impaired. In terms of her sepsis, the patient continues to have gram-positive cocci in clusters which turned out to be related to a coagulase-negative staph. Infectious disease consultation was obtained. Infection disease was considered the possibility of a contaminant. Nevertheless, the fifth culture also came back positive for gram-positive cocci. Vancomycin level in her system is around 11. She was taken off the vancomycin and she is only on Zosyn for now. White cell count is on a downgoing trend and is down to 10.4. Nevertheless, the patient remains on pressors with norepinephrine infusion running at 0.18 mcg/kg per minute. Her cardiac rhythm is sinus. She remains on amiodarone at 0.5 mg/m. She is also on half-normal saline at the rate of 50 mL an hour. Urine output is adequate. Creatinine is normalized. Blood gases from today shows a pH of 7.44 with a pCO2 of 36 and pO2 of 113 and this is done on a assist-control mode at the rate of 16 with tidal volume of 400 and FiO2 of 50% with a PEEP of 5. The patient is feeling vital high protein at the rate of 36 mL an hour. The family's change her CODE STATUS to DO NOT RESUSCITATE and the family is considering the possibility of withdrawal of care and the final decision is to be done today. No seizure activity has been noted and the patient remains on Keppra. Blood sugar management is with slight scale insulin coverage. She is having a low-grade fever of 100.0F. Urine output is adequate for now. 06/20/2021, I'm seeing this patient for a follow-up. The patient is still off sedation and for the third day and ultimately have not seen a reasonable neurologic recovery. My plan was to scan the patient's brain. Nevertheless, there was ingestion that the patient was going to go into comfort care measures and for that reason the CAT scan of the brain was not done. We are still awaiting final decision from the family in terms of comfort care measures/end-of-life care. Furthermore, this morning, the patient had a bout of GI bleeds with seems to be a upper GI bleed. We are going to keep the tube feeds on hold for now. We'll put the patient IV Protonix and monitor his hemoglobin and this will be managed conservatively. She remains on a mechanical ventilator. She is on assist control mode at the rate of 60 with a tidal volume of 400 and FiO2 of 40% with a PEEP of 5. The blood gases from today shows a pH of 7.43 with a pCO2 of 33 and pO2 of 150. As such, oxygenation has not been issue for this patient and the patient's pulse ox is currently at 98%. Chest x- ray from today is showing no significant interval change. She was in a good location. Findings are essentially stable with some increased interstitial markings bilaterally. Meanwhile, the patient has persistent bacteremia with coagulase-negative staph. ID was involved in a patient was started on daptomycin in combination with Zosyn. The patient is also on Diflucan. The white cell count is down to 3. The pro calcitonin level was elevated at 3.58. In terms of her renal failure, the renal function has been improving. Creatinine is down to 0.9 and BUN is at 32. Sodium level is down to 140. The patient is a DNR/DNI CODE STATUS. Blood sugar management is still slight scale coverage. Urine output is adequate. She is unresponsive at this point in time. She does not grimace or withdraw to deep painful stimulation. As mentioned, she's been off pressors and she has been off sedation. In terms of her cardiac rhythm, she is back into normal sinus and she is off amiodarone drip and she is currently on oral amiodarone at a dose of 200 mg twice a day. Anticoagulation was discontinued. 06/21/2021, patient is being seen for a follow-up. As mentioned earlier, menta tion was an issue. This morning, she is opening her eyes spontaneously. She is grimacing. She is not following any commands but this could be part of her baseline knowing that she has an underlying dementia. Nevertheless, based on my evaluation of this patient, she seems to be much more awake and she's check and she is opening up her eyes looking at her surrounding and she has a good cough and mechanism. As such, I think she is ready for extubation. During this time, the family still making a decision for her was status and considering a end-of-life care. Follow blood cultures are negative. The patient remains on broad-spectrum antibiotics. She is on a combination of Zosyn and daptomycin. She is afebrile. She is currently on no sedation. Pressors and we'll wean down to norepinephrine infusion of 0.04 g per minute. IV fluids are currently at KVO. She is stooling. Her cardiac rhythm is sinus. This morning, she was an assist-control mode of mechanical ventilation. She was on a tidal volume of 400 with an FiO2 of 40% and a PEEP of 5 and a rate of extreme. I flipped her to a pressure support of 5 and a PEEP of 5 and she is able to generate adequate tidal volumes of above 600. Considering extubation today. Chest x-ray from today is showing essentially stable findings. ET tube remains in a good location. Some limited interstitial changes in lung bases bilaterally. Lung volumes are essentially small. NG tube is also in place. In terms of her blood work, the patient has negative blood cultures for now. White echo is at 6.5. Hemoglobin is at 8.2. Platelet count is at 114. Blood gases were not done today. BUN is at 30 with a creatinine of 0.9. Electrolytes are stable. There is a mild component of non-anion gap metabolic acidosis. As mentioned, the patient is a DNR/DNI CODE STATUS. Her cardiac rhythm is sinus. She is off the amiodarone drip. She is currently on oral amiodarone 200 mg by mouth , twice a day and anticoagulation was discontinued. No signs of any GIB Objective - Vital Signs Vital signs: Vital Signs Temp 98 F 06/21/21 04:00 Pulse 62 06/21/21 08:00 Resp 20 06/21/21 08:00 BP 157/82 06/20/21 18:30 Pulse Ox 97 06/21/21 08:00 Intake & Output 06/20/21 06/21/21 06/21/21 18:59 06:59 18:59 Intake Total 2047.242 220 71.675 Output Total 1600 1071 100 Balance 447.242 -851 -28.325 Weight 106.6 kg 103.2 kg Intake: IV 560 220 40 0.9 260 220 40 Piperacillin-Tazobactam 3 200 .375 gm In Sodium Chloride 0.9% 100 ml @ 25 mls/hr IVPB Q8HR [facility] Rx# :[id number] levETIRAcetam IV 500 mg 100 In Sodium Chloride 0.9% 100 ml @ 400 mls/hr IVPB Q12HR [facility] Rx#:[id number] Intake, IV Titration 155.242 31.675 Amount DAPTOmycin 600 mg In 50 Sodium Chloride 0.9% 50 ml @ 100 mls/hr IVPB Q24HR [facility] Rx#:[id number] Fluconazole in NaCl,Iso- 100 Osm 200 mg In Saline 1 100ml.bag @ 100 mls/hr IVPB DAILY [facility] Rx#: [id number] Norepinephrine 32 mg In 5.242 31.675 Sodium Chloride 0.9% 218 ml @ 0.05 MCG/KG/MIN 2. 126 mls/hr IV .Q24H [facility] Rx#:[id number] Tube Feeding 432 Other 900 Output: Gastric Drainage 500 Urine 600 571 100 Stool 1000 Other: Voiding Method Indwelling Catheter Indwelling Catheter Indwelling Catheter ABP, PAP, CO, CI - Last Documented Arterial Blood Pressure 101/47 - Exam Gen. appearance, the patient is off sedation the patient is more responsive at this point in time., comfortable no acute distress. She is intubated on a mechanical ventilator. Orogastric and orotracheal tube are both in place. Head exam was generally normal. There was no scleral icterus or corneal arcus. Mucous membranes were moist. Neck was supple and without jugular venous distension, thyromegaly, or carotid bruits. Carotids were easily palpable bilaterally. There was no adenopathy. Lungs were clear to auscultation and percussion, and with normal diaphragmatic excursion. No wheezes or rales were noted. Cardiac exam revealed the PMI to be normally situated and sized. The rhythm was regular and no extrasystoles were noted during several minutes of auscultation. The first and second heart sounds were normal and physiologic splitting of the second heart sound was noted. There were no murmurs, rubs, clicks, or gallops. Abdominal exam revealed normal bowel sounds. The abdomen was soft, non-tender, and without masses, organomegaly, or appreciable enlargement of the abdominal aorta. Examination of the extremities revealed v weak radial, femoral and pedal pulses. There was no cyanosis, clubbing and the patient is developing edema in all 4 extremities. Diminished pulses in all 4 extremities and the patient has been cold and clammy. Examination of the skin revealed no evidence of significant rashes, suspicious appearing nevi or other concerning lesions. Neurologically lethargic yet arousable. No focal logical deficits. Pupils are equal and reactive to light. No facial asymmetry. No neck stiffness. No nystagmus. There is a preferential gaze to the right inferior direction. The patient is not responding to any painful stimulation. She has been off sedation since noontime yesterday. No clonus. Motor function is reduced in all 4 extremities and the patient has global weakness. Sensory cannot be adequately assessed. Reflexes equal and symmetrical. Neurologically she is still impaired and she remained unresponsive. She grimaces she opens her eyes and she tracks. - Labs CBC & Chem 7: 06/21/21 04:10 06/21/21 04:10 Labs: Abnormal Lab Results - Last 24 Hours (Table) 06/20/21 06/20/21 06/21/21 Range/Units 12:43 19:01 00:28 RBC (3.80-5.40) m/uL Hgb (11.4-16.0) gm/dL Hct (34.0-46.0) % MCV (80.0-100.0) fL RDW (11.5-15.5) % Plt Count (150-450) k/uL Chloride (98-107) mmol/L Carbon Dioxide (22-30) mmol/L BUN (7-17) mg/dL Glucose (74-99) mg/dL POC Glucose (mg/dL) 142 H 140 H 133 H (75-99) mg/dL Calcium (8.4-10.2) mg/dL 06/21/21 06/21/21 06/21/21 Range/Units 01:33 02:37 04:10 RBC 2.38 L (3.80-5.40) m/uL Hgb 8.2 L (11.4-16.0) gm/dL Hct 24.6 L (34.0-46.0) % MCV 103.3 H (80.0-100.0) fL RDW 17.9 H (11.5-15.5) % Plt Count 114 L (150-450) k/uL Chloride (98-107) mmol/L Carbon Dioxide (22-30) mmol/L BUN (7-17) mg/dL Glucose (74-99) mg/dL POC Glucose (mg/dL) 131 H 118 H (75-99) mg/dL Calcium (8.4-10.2) mg/dL 06/21/21 06/21/21 Range/Units 04:10 07:12 RBC (3.80-5.40) m/uL Hgb (11.4-16.0) gm/dL Hct (34.0-46.0) % MCV (80.0-100.0) fL RDW (11.5-15.5) % Plt Count (150-450) k/uL Chloride 113 H (98-107) mmol/L Carbon Dioxide 20 L (22-30) mmol/L BUN 30 H (7-17) mg/dL Glucose 136 H (74-99) mg/dL POC Glucose (mg/dL) 128 H (75-99) mg/dL Calcium 8.2 L (8.4-10.2) mg/dL Microbiology - Last 24 Hours (Table) 06/19/21 16:36 Blood Culture - Preliminary Blood No Growth after 24 hours 06/18/21 09:42 Blood Culture - Preliminary Blood No Growth after 48 hours 06/18/21 09:32 Blood Culture - Preliminary Blood No Growth after 48 hours 06/19/21 01:18 Gram Stain - Preliminary Sputum Sputum Culture - Preliminary Assessment and Plan Plan: 1 Septic shock likely secondary to gram-positive activity via, staph epidermidis/coagulase-negative staph was cultured and multiple blood cultures and the patient is currently on daptomycin. Repeat blood cultures are negative for now.. The patient has produced gram-positive cocci in clusters in all of the blood cultures. The patient grew gram-positive cocci which is probably coagulase-negative staph and 5 of the blood cultures. Currently the patient on daptomycin. The patient is minimal dose of pressors.. ID is on the case. The pro calcitonin level was elevated and he was likely the patient had a staphylococcal septicemia. 2 acute hypoxic respiratory failure secondary to above, oxygenation is stable. Chest x-ray was reviewed. Blood gases was reviewed. The patient is currently on a pressure support of 5 and a PEEP of 5 and she was taken off the assist control mode of ventilation. Consider possible extubation. 3 altered mentation secondary to above, improving although the patient has some baseline neurologic limitation with dementia 4 acute kidney injury secondary to above, recovered 5 acute hyperchloremic hypernatremia, recovered 6 history of recurrent UTIs most recent hospitalization was for E. coli UTI and sepsis 7 history of fall with a previous left A. fib/tib fracture, managed conservatively by orthopedic surgery with interval 8 history of paroxysmal atrial fibrillation, normal cardiac rhythm is sinus rhythm, 9 obesity with a BMI of 37 10 history of schizoaffective disorder 11 lactic acidosis, improving 12 non-anion gap metabolic acidosis, improving and the bicarb infusion, improved 13 transaminitis 14 Troponin leak 15 pulmonary fibrosis along with some honeycombing and traction bronchiectasis, seen on old CAT scans of the chest. Meanwhile, COVID-19 testing was negative. 16 Long Term resident with a poor baseline performance and functional status 17 acute upper GI bleeding plan Continue ventilator support Switch this patient to a pressure support of 5 and a PEEP of 5 and I'm considering extubating this patient today. She has adequate mentation to keep her airway patency and protect her airways. She has a decent cough. Despite her ongoing back in for a core status change, I am going to extubate this patient knowing that she may tolerate extubation without any major difficulties. Her sepsis is under better control for now. Continue same antibiotic coverage No need for anticoagulation IV Protonix and hold the tube feeds Maintain supportive care Possible end-of-life care , awaiting further direction from the family. Meanwhile we are going to proceed with further weaning. Wean off pressors and discontinue levo fed. No need for any sedative medications Condition is critical Will update the family on her condition. Final decision will be done and further workup based on the family's decision whether to continue with treatment or proceed with comfort care measures. There is a critically care evaluation that was done and more than 30 minutes. Time with Patient: Greater than 30
--- NOTE | 2021-06-21 10:31 | PN ---
PROGRESS NOTE Mrs. Angel is still intubated on a ventilator. She is in maintaining sinus rhythm. No atrial fibrillation. Her hemoglobin has dropped to 8.3. Comfort care is being considered, but the patient seems to be responding more at this time. Blood pressure is good. Heart rate is 80 per minute, sinus. S1, S2 heard normally. Short systolic murmur evident. Lungs reveal ventilator-assisted breath sounds. Abdomen is soft. Central nervous system exam was not performed. Patient is maintaining sinus rhythm. Will continue amiodarone and continue to hold the Eliquis in view of bleeding and drop in hemoglobin. MMODL / IJN: [id number] /
[2021-06-21] MEDS: PANTOPRAZOLE 40 MG/10 ML VIAL IV SCH ×2 (11:28→21:29)
[2021-06-21] MEDS: levETIRAcetam IV 500 MG in SODIUM CHLORIDE 0.9% 100 ML IVPB SCH ×2 (11:28→21:30)
[2021-06-21] MEDS: CHLORHEXIDINE GLUCONATE 15 ML CUP MUCOUS MEM SCH ×2 (11:29→21:11)
[2021-06-21] MEDS: FLUCONAZOLE IN NACL,ISO-OSM 200 MG in SALINE 1 100ML.BAG IVPB SCH (11:30)
[2021-06-21] MEDS: AMIODARONE 200 MG TAB PO SCH ×2 (11:41→21:09)
[2021-06-21 11:45] LABS: Glucose,Whole Blood 116 mg/dL (75-99)
--- NOTE | 2021-06-21 12:14 | P.PN ---
Subjective Progress Note Date: 06/21/21 The patient seen at bedside and the per the patient nurse she's doing somewhat better. She was extubated and that is breathing on her own. Per the patient nurse she squeezed his hand but she's not following commands or verbalizing. Patient's done still does not want any further workup such as CT or any further neurological work-up per his nurse. He refuses to come to the hospital and he wants his alcohol to come to the hospital and was hoping to make the patient comfort care but since now she is awake unsure what the patient's son wants to do. She is on minimal pressors. The nurse stated that the patient's record from [facility] was not obtained since the patient's son was leaning towards comfort care. Objective - Vital Signs Vital signs: Vital Signs Temp 98.5 F 06/21/21 08:30 Pulse 81 06/21/21 11:30 Resp 23 06/21/21 11:30 BP 157/82 06/20/21 18:30 Pulse Ox 99 06/21/21 11:30 Intake & Output 06/20/21 06/21/21 06/21/21 18:59 06:59 18:59 Intake Total 2047.242 220 131.675 Output Total 1600 1071 195 Balance 447.242 -851 -63.325 Weight 106.6 kg 103.2 kg Intake: IV 560 220 100 0.9 260 220 100 Piperacillin-Tazobactam 3 200 .375 gm In Sodium Chloride 0.9% 100 ml @ 25 mls/hr IVPB Q8HR [facility] Rx# :[id number] levETIRAcetam IV 500 mg 100 In Sodium Chloride 0.9% 100 ml @ 400 mls/hr IVPB Q12HR [facility] Rx#:[id number] Intake, IV Titration 155.242 31.675 Amount DAPTOmycin 600 mg In 50 Sodium Chloride 0.9% 50 ml @ 100 mls/hr IVPB Q24HR [facility] Rx#:[id number] Fluconazole in NaCl,Iso- 100 Osm 200 mg In Saline 1 100ml.bag @ 100 mls/hr IVPB DAILY [facility] Rx#: [id number] Norepinephrine 32 mg In 5.242 31.675 Sodium Chloride 0.9% 218 ml @ 0.05 MCG/KG/MIN 2. 126 mls/hr IV .Q24H [facility] Rx#:[id number] Tube Feeding 432 Other 900 Output: Gastric Drainage 500 Urine 600 571 195 Stool 1000 Other: Voiding Method Indwelling Catheter Indwelling Catheter Indwelling Catheter ABP, PAP, CO, CI - Last Documented Arterial Blood Pressure 104/47 - Exam GENERAL: The patient is lying in bed and does not seem in acute distress. HENT: supple neck. LUNG: Clear to auscultation bilaterally no wheezing noted throughout. Not labored breathing. Intubated on ventilator. NEUROLOGICAL: Limited because of cooperation. Higher mental function: The patient is awake, alert but not verbalizing or following commands. Cranial nerves: The pupils are round, equal (3mm) and reactive to light. Has positive corneal reflex bilaterally. EOM is tracking. No facial weakness. Limited because of cooperation. Motor: The strength is limited and no moving any extremities to commands. Has slight tremor of both hands at rest. Normal bulk. Cerebellum: Could not assess. Sensation: Could not assess light touch. Reflexes (right/left): 1+ throughout. Plantars are mute bilaterally. FURTHER WORK-UP: AST: 238-->592-->495 ALT:128-->481-->527 ammonia <9. Blood culture: Grame positive cocci in clusters Urinalysis negative for urinary tract infection Call virus was not detected - Labs CBC & Chem 7: 06/21/21 04:10 06/21/21 04:10 Labs: Abnormal Lab Results - Last 24 Hours (Table) 06/20/21 06/20/21 06/21/21 Range/Units 12:43 19:01 00:28 RBC (3.80-5.40) m/uL Hgb (11.4-16.0) gm/dL Hct (34.0-46.0) % MCV (80.0-100.0) fL RDW (11.5-15.5) % Plt Count (150-450) k/uL Chloride (98-107) mmol/L Carbon Dioxide (22-30) mmol/L BUN (7-17) mg/dL Glucose (74-99) mg/dL POC Glucose (mg/dL) 142 H 140 H 133 H (75-99) mg/dL Calcium (8.4-10.2) mg/dL 06/21/21 06/21/21 06/21/21 Range/Units 01:33 02:37 04:10 RBC 2.38 L (3.80-5.40) m/uL Hgb 8.2 L (11.4-16.0) gm/dL Hct 24.6 L (34.0-46.0) % MCV 103.3 H (80.0-100.0) fL RDW 17.9 H (11.5-15.5) % Plt Count 114 L (150-450) k/uL Chloride (98-107) mmol/L Carbon Dioxide (22-30) mmol/L BUN (7-17) mg/dL Glucose (74-99) mg/dL POC Glucose (mg/dL) 131 H 118 H (75-99) mg/dL Calcium (8.4-10.2) mg/dL 06/21/21 06/21/21 06/21/21 Range/Units 04:10 07:12 11:44 RBC (3.80-5.40) m/uL Hgb (11.4-16.0) gm/dL Hct (34.0-46.0) % MCV (80.0-100.0) fL RDW (11.5-15.5) % Plt Count (150-450) k/uL Chloride 113 H (98-107) mmol/L Carbon Dioxide 20 L (22-30) mmol/L BUN 30 H (7-17) mg/dL Glucose 136 H (74-99) mg/dL POC Glucose (mg/dL) 128 H 116 H (75-99) mg/dL Calcium 8.2 L (8.4-10.2) mg/dL Microbiology - Last 24 Hours (Table) 06/18/21 09:42 Blood Culture - Preliminary Blood No Growth after 72 hours 06/18/21 09:32 Blood Culture - Preliminary Blood No Growth after 72 hours 06/19/21 01:18 Gram Stain - Final Sputum Sputum Culture - Final 06/19/21 16:36 Blood Culture - Preliminary Blood No Growth after 24 hours Assessment and Plan Assessment: Altered mental status due to multifactorial: septic encephalopathy and component of toxic-metabolic encephalopathy ( --slight improvement (is more awake) High suspicious of seizure on 04/2021 (admission) and was transferred to [facility] for assisted EEG and further work-up. Patient has underlying reported dementia Septic shock on levo (secondary due to gram-positive and staph epidermidis/coagulase negative and the patient is on daptomycin) Acute kidney insufficiency--resolved Transaminitis--trending down Hypernatremia likely due to dehydration--improved Troponin leak History of recurrent urinary tract infection History of fall History of proximal atrial fibrillation Schizoaffective disorder Plan: * Continue Keppra IV 500mg every 12 hours for her seizure was suspected in April 2021 for now (she was on Depakote but on hold since has elevated LFT's and once stable will consider starting patient home medication of Depakote 500mg 1 tab bid (was being used for mood stabilizer and has antiepileptic effect as well). I spoke with a nurse again today and will try to obtain records of her ambulatory EEG and further investigation she had and [facility]. We'll try to find out what medication she was discharged with. * We'll consider a CT of the head and a routine EEG. The patient's son refused further testing since the he wanted to make the patient comfort. Now since patient is more awake, waiting for the patient's son final input. * I.D. is on board. * Cardiology is on board * Nephrology team is on board * We'll defer further work-up to the to the ICU in the primary team. Condition: Is very guarded. Now since patient is more awake, waiting for the patient's son final input. The plan was discussed with the patient ICU nurse. John Laws M.D. Neuro-hospitalist Time with Patient: Less than 30
[2021-06-21 18:11] LABS: Glucose,Whole Blood 108 mg/dL (75-99)
--- NOTE | 2021-06-21 18:12 | PN ---
PROGRESS NOTE DATE OF SERVICE: 06/21/2021 REASON FOR FOLLOWUP: 1. Positive blood culture, likely contaminant. 2. Aspiration pneumonia. INTERVAL HISTORY: The patient is afebrile. The patient has been extubated. Currently on nasal cannula oxygen. The patient is slightly waking up. Did answer one simple questions. No vomiting, diarrhea or other changes reported by the nursing staff. PHYSICAL EXAMINATION: Blood pressure 109/47, pulse of 79, temperature 98. She is 100% on 30% FiO2. GENERAL DESCRIPTION: General description is a middle-aged female lying in bed in no distress. RESPIRATORY SYSTEM: Unlabored breathing. Decreased breath sounds at the bases. No wheeze. HEART: S1, S2. Regular rate and rhythm. ABDOMEN: Soft. No tenderness. LABS: Hemoglobin is 8.1, white count 6.5, BUN of 30, creatinine 0.91. Blood culture repeat has been negative. DIAGNOSTIC IMPRESSION AND PLAN: 1. Patient with positive blood culture, coagulase-negative Staph, likely contaminant. Repeat blood cultures have been negative. Will monitor the patient closely off of vancomycin. 2. Patient with possible aspiration pneumonia, covered with Zosyn. Continue with supportive care. MMODL / IJN: [id number] / IGOR
--- NOTE | 2021-06-21 21:08 | P.PN ---
Progress Note - Text Progress Note Date: 06/21/21 Chief Complaint: Decreased responsiveness History of presenting complaint: This is a 56-year-old patient, follows with Dr. Beltrán at the [facility]. Patient was recently admitted to the hospital in May 05 and transferred on May 10 2 [facility] in [place].Admitted with UTI from cystitis with sepsis, bilateral pneumonia, septic shock, acute kidney injury with ATN.IV fluids. IV ceftriaxone. Admitted to the ICU. The transfer was done for continuous EEG monitoring. On this occasion patient is brought to with unresponsiveness. She was hypotensive. Acute kidney injury. Some abnormal liver enzymes, UA was positive. Patient was negative for COVID-19. Patient was intubated and put on the mechanical ventilator. Has been getting IV fluid boluses. This morning she has received about 4 L of fluids total. Has been in atrial fibrillation. Has or G-tube. Drips include we will affect, propofol, normal saline. FiO2 100% with a PEEP of 5. Febrile Admitted with acute metabolic/toxic encephalopathy from sepsis, septic shock, pneumonia, acute kidney injury likely from ATN, atrial flutter fibrillation rate uncontrolled, metabolic acidosis. June 17: ICU: On the ventilator with FiO2 50 PEEP of 5. Drips include norepinephrine and propofol. Atrial fibrillation rate better controlled. On IV amiodarone. Controlled on IV amiodarone. Blood cultures growing gram-positive cocci. Antibiotics changed to IV Zosyn and vancomycin. Fever is started to come down June 18: ICU: On the ventilator with FiO2 50 PEEP of 5. Drips include norepinephrine. 2 feeding at 36 mL/h. patient has remained afebrile. Patient's son is considering comfort care June 19: ICU: On the ventilator with a PEEP of 5 and FiO2 50%. On norepinephrine drip. OG-tube feeding. Prognosis guarded. Patient's son is talking to the family members. June 20: ICU: Ventilator: FiO2 40 and a PEEP of 5. Drips include norepinephrine. Patient been off sedation for 3 days. No meaningful response. Patient has some GI bleed this morning. 2 feeding was held. IV Protonix added. Does not respond to painful stimuli. June 21: This morning patient was slightly more responsive. Opening eyes spontaneously. This morning. Responding of it more. Patient was extubated. Lethargic. Sinus rhythm Review of systems:patient lethargic Active Medications Albuterol/Ipratropium (Ipratropium-Albuterol 3 Ml Neb) 3 ml INHALATION RT-QID [facility] Last Admin: 06/21/21 19:30 Dose: 3 ml Documented by: Amiodarone HCl (Amiodarone 200 Mg Tab) 200 mg PO BID [facility] Last Admin: 06/21/21 11:41 Dose: Not Given Documented by: Chlorhexidine Gluconate (Chlorhexidine Gluconate 15 Ml Cup) 15 ml MUCOUS MEM BID [facility] Last Admin: 06/21/21 11:29 Dose: Not Given Documented by: Norepinephrine Bitartrate 32 (mg/ Sodium Chloride) 250 mls @ 2.126 mls/hr IV .Q24H [facility]; Protocol Last Titration: 06/21/21 11:00 Dose: 0 mcg/kg/min, 0 mls/hr Documented by: Levetiracetam 500 mg/ Sodium (Chloride) 105 mls @ 400 mls/hr IVPB Q12HR [facility] Last Admin: 06/21/21 11:28 Dose: 400 mls/hr Documented by: Piperacillin Sod/Tazobactam (Sod 3.375 gm/ Sodium Chloride) 100 mls @ 25 mls/hr IVPB Q8HR [facility] Last Admin: 06/21/21 18:03 Dose: 25 mls/hr Documented by: Fluconazole/Sodium Chloride (200 mg/ IV Solution) 100 mls @ 100 mls/hr IVPB DAILY [facility] Last Admin: 06/21/21 11:30 Dose: 100 mls/hr Documented by: Insulin Aspart (Insulin Aspart (Novolog) 100 Unit/Ml Vial) 0 unit SQ Q6H [facility]; Protocol Last Admin: 06/21/21 17:48 Dose: Not Given Documented by: Levothyroxine Sodium (Levothyroxine Ivp 100 Mcg/5 Ml Vial) 50 mcg IV Q48H [facility] Last Admin: 06/20/21 10:38 Dose: 50 mcg Documented by: Miscellaneous Information (Potassium Replacement Protocol 1 Each Misc) 1 each MISCELLANE DAILY PRN; Protocol PRN Reason: Per Protocol Naloxone HCl (Naloxone 0.4 Mg/Ml 1 Ml Vial) 0.2 mg IV Q2M PRN PRN Reason: Opioid Reversal Pantoprazole Sodium (Pantoprazole 40 Mg/10 Ml Vial) 40 mg IV BID [facility] Last Admin: 06/21/21 11:28 Dose: 40 mg Documented by: Past medical history to include: Atrial fibrillation, bibasilar fibrotic lung changes with honeycombing, schizoaffective disorder, nicotine use, in February/2021 patient did have a left tibial plate to and left proximal fibular fracture Social history: ECF. Smoker, until recently. Marijuana use history of Family history: Could not be obtained. Physical examination: VITAL SIGNS: 97.8, 85, 18, 10 7 x 49, GENERAL: Laying in bed, lethargic EYES: Pupils equal. Conjunctiva normal. HEENT: External appearance of nose and ears normal, oral cavity mucous membranes. NECK: JVD unable to assess; masses not palpable. HEART: First and second heart sounds are normal; no edema. LUNGS: Respiratory rate increased; decreased breath sounds ABDOMEN: Soft, nontender, liver spleen not palpable, no masses palpable. PSYCH: Unable to assess INVESTIGATIONS, reviewed in the clinical context: June 21: WBC 6.5 hemoglobin 8.2 platelets 114 potassium 3.7 BUN 30 creatinine 0.91 June 20: WBC 3.3 hemoglobin 9.3 platelets 102 potassium 4.2 BUN 32 creatinine 0.96. Chest x-ray bilateral airspace disease June 19: WBC 10.4 hemoglobin 8.9 platelets 114 potassium 2.9 creatinine 1 AST 139 ALT 291 June 18: WBC 13.8 hemoglobin 10.7 platelets 132 potassium 3.7 BUN 53 creatinine 1.68 AST 495 ALT 527 June 17: WBC 15.9 hemoglobin 11 platelets 142, sodium 149 potassium 3.2 (74 creatinine 2.90, bicarb 19 AST 592 ALT 481 Blood cultures growing: Coagulase negative staph WBC 18.4 hemoglobin 14.2 platelets 399, sodium 154 potassium 5.7 BUN 83 creatinine 3.65 lactic acid 5 AST 238 ALT 128 Troponin I 0.148, 0.4-3 EKG tracing personally reviewed by me-atrial flutter with 2 was 21 conduction Chest x-ray film personally reviewed by me-bilateral infiltrates/also some chronicity Previous testing: May 10: BUN 17 creatinine 0.93, AST/ALT both normal CT chest [02/24/2021] chronic parenchymal fibrotic changes greatest in the bases. With honeycombing. It is of groundglass opacities. 2-D echocardiogram: EF 55 have a 60%. [id number] tricuspid regurgitation. Some element of pulmonary hypertension Assessment and plan: -Acute/metabolic/toxic encephalopathy. From sepsis: Slow to respond -Possible pneumonia suspected gram-negative organism, patient has underlying also chronic fibrotic changes IV Zosyn -Positive blood cultures for coagulase-negative staph,-likely contamination IV daptomycin, discontinued -Chronic bilateral pulmonary fibrosis with honeycombing Bronchodilators. -Septic shock: Was on IV levo fed. IV fluids -Questionable seizure on last admission patient was transferred to [facility] in [place] for further workup. Neurology's request records from [facility]. IV Keppra -Acute kidney injury, likely from ATN from sepsis: Significant improvement Admission creatinine 3.65. Patient's creatinine was 0.93 on May 10 -Metabolic and lactic acidosis from renal failure/sepsis: Improved Received IV bicarbonate drip -Persistent atrial flutter-fibrillation, rate better controlled By mouth amiodarone. Eliquis . -Chronic pulmonary fibrosis especially at the bases with honeycombing -Schizoaffective disorder On Invega -COPD in a smoker DuoNeb. -Hypernatremia from free water deficit: Improved IV fluids. Follow sodium -Hyperkalemia from acute kidney injury: Improved Hydrate patient. -Likely acute ischemic hepatitis from hypotension: Slow to respond Follow-up LFTs. Patient continued on amiodarone per cardiology -Troponin leak from hemodynamic mismatch and sepsis. Not a clinical picture of acute coronary syndrome Been followed by cardiology -GI bleed. Possible stress gastritis. IV PPI 2 feeding held Extubated today. Lethargic. On IV Keppra, small dose of levo fed, IV Zosyn. Other medications to continue. Prognosis remains guarded.
[2021-06-22] MEDS: INSULIN ASPART (NovoLOG) 100 UNIT/ML VIAL SQ SCH ×5 (00:30→23:50)
[2021-06-22 00:31] LABS: Glucose,Whole Blood 94 mg/dL (75-99)
[2021-06-22] MEDS: PIPERACILLIN-TAZOBACTAM 3.375 GM in SODIUM CHLORIDE 0.9% 100 ML IVPB SCH ×4 (00:35→23:55)
[2021-06-22 05:07] LABS: African American GFR (CKD) >90 (>60 ml/min/1.73 sqM); Anion Gap 5 mmol/L; Blood Urea Nitrogen 23 mg/dL (7-17); Calcium 8.5 mg/dL (8.4-10.2); Carbon Dioxide 21 mmol/L (22-30); Chloride 117 mmol/L (98-107); Glucose 98 mg/dL (74-99); Non-African American GFR(CKD) 82 (>60 ml/min/1.73 sqM); Potassium 3.6 mmol/L (3.5-5.1); Sodium 143 mmol/L (137-145)
[2021-06-22 05:29] LABS: Anisocytosis Slight; Basophils % (A) 1 %; Eosinophils # (A) 0.1 k/uL (0-0.7); Eosinophils % (A) 2 %; HCT 22.6 % (34.0-46.0); HGB 7.4 gm/dL (11.4-16.0); Lymphocytes % (A) 19 %; MCH 34.5 pg (25.0-35.0); MCHC 32.7 g/dL (31.0-37.0); MCV 105.3 fL (80.0-100.0); Macrocytosis Marked; Mean Platelet Volume 9.4; Monocytes # (A) 0.2 k/uL (0-1.0); Monocytes % (A) 5 %; Neutrophils # (A) 3.5 k/uL (1.3-7.7); Neutrophils % (A) 70 %; Platelet Count 123 k/uL (150-450); Poikilocytosis Slight; RBC 2.15 m/uL (3.80-5.40); RDW 18.2 % (11.5-15.5)
[2021-06-22] MEDS: POTASSIUM CHLORIDE 10 MEQ in WATER FOR INJECTION 1 100ML.BAG IVPB SCH ×2 (05:47→08:04)
[2021-06-22] MEDS: NOREPINEPHRINE 32 MG in SODIUM CHLORIDE 0.9% 218 ML IV SCH (05:52)
--- NOTE | 2021-06-22 06:21 | XR ---
EXAMINATION TYPE: XR chest 1V portable DATE OF EXAM: 06/22/2021 CLINICAL HISTORY: Difficulty breathing progress study. TECHNIQUE: Single AP portable semiupright view of the chest is obtained. COMPARISON: Chest x-ray from one day earlier FINDINGS: Interval extubation with removal of endotracheal and orogastric tubes. Stable right internal communications writer al jugular central venous catheter. Cardiac silhouette size stable and within normal limits. Bilateral patchy multifocal opacities redemo nstrated. Osseous structures are intact. IMPRESSION: Interval extubation. Bilateral multifocal opacities redemonstrated,, the latter shows no significant change from one day earlier.
[2021-06-22 07:21] LABS: Large Platelets Present; Polychromasia Present
[2021-06-22] MEDS: IPRATROPIUM-ALBUTEROL 3 ML NEB INHALATION SCH ×4 (07:23→19:32)
[2021-06-22] MEDS: PANTOPRAZOLE 40 MG/10 ML VIAL IV SCH ×2 (08:05→21:09)
[2021-06-22] MEDS: levETIRAcetam IV 500 MG in SODIUM CHLORIDE 0.9% 100 ML IVPB SCH ×2 (08:05→21:08)
[2021-06-22] MEDS: AMIODARONE 200 MG TAB PO SCH ×2 (08:37→21:05)
[2021-06-22] MEDS: FLUCONAZOLE IN NACL,ISO-OSM 200 MG in SALINE 1 100ML.BAG IVPB SCH (08:37)
--- NOTE | 2021-06-22 09:32 | P.PN ---
Subjective Patient is seen in follow-up for acute kidney injury and electrolyte imbalance. Renal function is improved. Nonoliguric. Extubated June 21. Off vasopressors. Vital signs are stable. Off Levophed. General: The patient appeared well nourished and normally developed. HEENT: Nasal cannula. LUNGS: Breath sounds decreased. HEART: Rate and Rhythm are regular. ABDOMEN: Soft, no distention. Obese. EXTREMITITES: Trace edema. Objective - Vital Signs Vital signs: Vital Signs Temp 97.7 F 06/22/21 08:00 Pulse 82 06/22/21 08:00 Resp 23 06/22/21 08:00 BP 157/82 06/19/21 17:00 Pulse Ox 100 06/22/21 08:00 Intake & Output 06/21/21 06/22/21 06/22/21 18:59 06:59 18:59 Intake Total 278.231 260 440 Output Total 425 340 80 Balance -146.769 -80 360 Weight 103.9 kg Intake: IV 240 260 440 0.9 240 160 40 Fluconazole in NaCl,Iso- 100 Osm 200 mg In Saline 1 100ml.bag @ 100 mls/hr IVPB DAILY [facility] Rx#: [id number] Piperacillin-Tazobactam 3 100 100 .375 gm In Sodium Chloride 0.9% 100 ml @ 25 mls/hr IVPB Q8HR [facility] Rx# :[id number] Potassium Chloride 20 meq 100 In Water For Injection 1 100ml.bag @ 50 mls/hr IVPB [facility] Rx#: [id number] levETIRAcetam IV 500 mg 100 In Sodium Chloride 0.9% 100 ml @ 400 mls/hr IVPB Q12HR [facility] Rx#:[id number] Intake, IV Titration 38.231 Amount Norepinephrine 32 mg In 38.231 Sodium Chloride 0.9% 218 ml @ 0.05 MCG/KG/MIN 2. 126 mls/hr IV .Q24H [facility] Rx#:[id number] Output: Urine 425 340 80 Other: Voiding Method Indwelling Catheter Indwelling Catheter Indwelling Catheter ABP, PAP, CO, CI - Last Documented Arterial Blood Pressure 120/54 - Labs CBC & Chem 7: 06/22/21 04:30 06/22/21 04:30 Labs: Abnormal Lab Results - Last 24 Hours (Table) 06/21/21 06/21/21 06/21/21 Range/Units 05:15 11:44 18:09 RBC (3.80-5.40) m/uL Hgb (11.4-16.0) gm/dL Hct (34.0-46.0) % MCV (80.0-100.0) fL RDW (11.5-15.5) % Plt Count (150-450) k/uL Macrocytosis ABG pCO2 34 L (35-45) mmHg ABG pO2 129 H (83-108) mmHg ABG O2 Saturation 99.5 H (94-97) % Chloride (98-107) mmol/L Carbon Dioxide (22-30) mmol/L BUN (7-17) mg/dL POC Glucose (mg/dL) 116 H 108 H (75-99) mg/dL 06/22/21 06/22/21 Range/Units 04:30 04:30 RBC 2.15 L (3.80-5.40) m/uL Hgb 7.4 L (11.4-16.0) gm/dL Hct 22.6 L (34.0-46.0) % MCV 105.3 H (80.0-100.0) fL RDW 18.2 H (11.5-15.5) % Plt Count 123 L (150-450) k/uL Macrocytosis Marked A ABG pCO2 (35-45) mmHg ABG pO2 (83-108) mmHg ABG O2 Saturation (94-97) % Chloride 117 H (98-107) mmol/L Carbon Dioxide 21 L (22-30) mmol/L BUN 23 H (7-17) mg/dL POC Glucose (mg/dL) (75-99) mg/dL Microbiology - Last 24 Hours (Table) 06/19/21 16:36 Blood Culture - Preliminary Blood No Growth after 48 hours 06/18/21 09:42 Blood Culture - Preliminary Blood No Growth after 72 hours 06/18/21 09:32 Blood Culture - Preliminary Blood No Growth after 72 hours 06/19/21 01:18 Gram Stain - Final Sputum Sputum Culture - Final Assessment and Plan Plan: Assessment: 1. Acute kidney injury secondary to ATN secondary to septic shock. Creatinine 3.65 on admission - 0.8 today. Baseline creatinine near 1. No evidence of hydronephrosis noted on kidney ultrasound. 2. Septic shock now off Levophed. Blood cultures positive for gram-positive cocci/coag-negative staph. On IV antibiotics. Infectious disease following. 3. Acute hypoxic respiratory failure. On 40% FiO2. 4. Hypernatremia from lack of oral water intake. Improved. 5. Hypokalemia from poor intake. Being replaced. 6. Metabolic acidosis secondary to acute kidney injury and lactic acidosis. 7. Hypercalcemia secondary to volume contraction. Resolved. 8. A. fib with RVR on amiodarone. Plan: No changes from nephrology standpoint. Will see on as-needed basis.
--- NOTE | 2021-06-22 09:36 | P.PN ---
Subjective Progress Note Date: 06/22/21 56-year-old female patient, a custodial resident, presented to the emergency department with unresponsiveness. She had altered mentation above and beyond her baseline. I've taken care of this patient approximately a month ago when she came in to the ICU with septic shock secondary to E. coli UTI and sepsis. During this time around, the patient was profoundly hypotensive. She had significant metabolic disturbances and she was also in acute kidney injury. For now, her white cell count is at 18.4. Hemoglobin is at 14.2. She has a platelet count of 399, INR of 1.7 with a PT of 16.9, sodium of 154 with a serum bicarb of 18 and an anion gap of 19 with a potassium level of 5.7, glucose of 206, lactic acid level was quite elevated at 5, troponin of 0.4, abnormal AST of 238, ALT of 128, and the patient's urinalysis was positive only for Proteus. COVID-19 testing was negative. Chest x-ray shows chronic interstitial changes bilaterally consistent with previous history of bibasilar pulmonary fibrosis. The patient was quite hypotensive. The patient was started on pressors. The patient was intubated and placed on a mechanical ventilator in the burst department. She received a total of 2 L of normal saline and currently she is on half normal saline running at 150 mL an hour. She is on a mechanical ventilator on assist control mode at the rate of 14 with a tidal volume of 400 and FiO2 of 5% and a PEEP of 5. Blood gas from today showed a pH of 7.33 with a pCO2 of 33 and pO2 of 146. She is cold and clammy and she has multiple skin lower extremities bilaterally. Urine output is low however is gradually improving. No other history is available. She'll have a history of schiz oaffective disorder. Previous echocardiogram has shown a preserved LV function with an ejection fraction of 55% based on echocardiogram that was done in February 2021. Cardiac rhythm is sinus.. The patient was given a triple lumen catheter in the right IJ. She doesn't have an arterial line for now. She is currently operable for which is running at 30 mcg/kg per minute. She is on norepinephrine infusion at 0.2 mcg/kg per minute. On 06/17/2021, the patient is being seen for a follow-up. This morning, the patient remains intubated on a mechanical ventilator. She remains sedated on propofol is being gradually weaned off that as the patient's underlying mental status. For now, probable running at 15 mcg/kg per minute. She remains deeply sedated and very responsive to painful stimulation. The patient is on a mechanical ventilator. She is an assist-control mode of mechanical ventilation at the rate of 26 with a tidal volume of 400 and FiO2 of 70% with a PEEP of 5. The chest x-ray still showing coarse interstitial infiltrates bilaterally. Note that the patient has underlying pulmonary fibrosis and chronic interstitial changes bilaterally. The blood gases from today showing a pH of 7.37 with a pCO2 of 36 and pO2 of 200 and based on that the FiO2 will be weaned off. This was done and FiO2 of 100%. Meanwhile, hemodynamically, the patient remains hypotensive. Norepinephrine infusion is running at 0.14 mcg/kg per minute. The patient is also on a bicarb infusion running at 1 25 mL an hour. The patient grew gram-positive cocci in clumps clusters and her blood 2 blood cultures and vancomycin was added overnight. She remains on IV cefepime. She is afebrile. Urine output is improved and currently she is producing urine output in order of 6200 mL an hour. Ultrasound the kidneys showed no evidence of any hydronephrosis. White cell count of 18 with a hemoglobin of 11.1.Creatinine is down to 2.9 with a mean of 74. Sodium level is down to 149. Potassium level is down to 3.2. She has a component of non-anion gap metabolic acidosis. Serum bicarb is at 19 with a gap of 12. AST is 592, ALT is 481, alkaline phosphatase is 51. Troponin was 0.4 and 0.1 respectively. COVID-19 testing showed negative COVID-19 infection at this point in time. She has a triple lumen catheter in the right IJ. An arterial line was also established in the right femoral artery. Another issue is that the patient has history of paroxysmal atrial fibrillation. During this current admission, and overnight the patient developed A. fib with RVR. The patient was started on amiodarone per protocol and currently she is on amiodarone at 0.5 mg per minute. She converted back into normal sinus rhythm. Anticoagulation will be initiated with Eliquis. 06/18/2021, I'm seeing this patient for a follow-up. Noted the patient is a complicated case of septic shock is currently intubated on a mechanical ventilator. This morning, she was taken off the sedation. Earlier, the propof ol was running at 15 mcg/kg per minute. It is noticed that the patient was deeply sedated. We stop the sedation as of known yesterday. She remains essentially unresponsive this morning. Upon repeated stimulation, she becomes very tachypneic and tachycardic. Nevertheless, she does not withdraw to painful stimulation. She does not open up her eyes spontaneously. She has a gaze preference to the right inferior direction. He was around 3 mm in size and there sluggish and reactive to light. No seizure activity has been noted. Noted the patient's underlying dementia. She remains on a mechanical ventilator. She is an assist-control mode at the rate of 26 with a tidal volume of 400 and FiO2 of 50% with a PEEP of 5. Blood gases from today showed a pH of 7.46 with a pCO2 of 33 and pO2 of 117. This was done and FiO2 of 50%. Chest x- ray showed adequate positioning of the ET tube. There is some increased interstitial markings bilaterally. OG tube is also in good location. The right lower lobe seems to be better aerated. Cannot rule out the possibility of bibasilar pulmonary infiltrates. Note that the patient is having copious amount of rest or secretions. Earlier sputum culture showed positive Aracely. Otherwise no other microbial growth. Meanwhile, she was quite septic and she was hemodynamically unstable at time of admission. She was resuscitated aggressively with IV fluids. The blood cultures 4 out of 4 came back positive for staph, likely coagulase-negative. She was covered with a combination of Zosyn and vancomycin and this will be continued for now pending further advice from infectious disease. In terms of her fluid balance, the patient is on a bi carb infusion which is still running at the rate of 1 25 mL an hour. His serum bicarb is improvement up to 21. Sodium level is also dropped down to 145 as the patient is also receiving free water flushes through her orogastric tube. From the cardiac standpoint, she has converted into sinus rhythm. She was taken off the amiodarone drip and she is currently on oral amiodarone at a dose of 200 mg by mouth 3 times a day and the patient is also on anticoagulation with Eliquis 5 mg by mouth twice a day. No seizure activity has been noted and the patient remains on Keppra. Blood sugar management is with NovoLog slight scale coverage. The patient is receiving enteral feeding for nutritional support and she is currently on vital a F at the rate of 36 mL an hour. She did have a large bowel movement earlier today. She is afebrile. The son has expressed wishes to proceed with a cause status change into comfort care measures taken account for history and various comorbidities. Further discussion will be done with the family regarding her condition and proceed accordingly. The renal function continues to improve. Creatinine currently is down to 1.68 and the patient is producing adequate amount of urine output. 06/19/2021, the patient is being seen for a follow-up. She remains off sedation for more than 24 hours. She is not communicating pH only grimaces to painful stimulation. She is not withdrawing in the lower extremities. She is not also moving her upper extremities and she shakes and gets a bit restless whenever she is given painful stimulation. She occasionally opens up her eyes. The pupils are still small amount of the 3 mm in size and she has a downward gaze. Her neurologic function as such is still impaired. In terms of her sepsis, the patient continues to have gram-positive cocci in clusters which turned out to be related to a coagulase-negative staph. Infectious disease consultation was obtained. Infection disease was considered the possibility of a contaminant. Nevertheless, the fifth culture also came back positive for gram-positive cocci. Vancomycin level in her system is around 11. She was taken off the vancomycin and she is only on Zosyn for now. White cell count is on a downgoing trend and is down to 10.4. Nevertheless, the patient remains on pressors with norepinephrine infusion running at 0.18 mcg/kg per minute. Her cardiac rhythm is sinus. She remains on amiodarone at 0.5 mg/m. She is also on half-normal saline at the rate of 50 mL an hour. Urine output is adequate. Creatinine is normalized. Blood gases from today shows a pH of 7.44 with a pCO2 of 36 and pO2 of 113 and this is done on a assist-control mode at the rate of 16 with tidal volume of 400 and FiO2 of 50% with a PEEP of 5. The patient is feeling vital high protein at the rate of 36 mL an hour. The family's change her CODE STATUS to DO NOT RESUSCITATE and the family is considering the possibility of withdrawal of care and the final decision is to be done today. No seizure activity has been noted and the patient remains on Keppra. Blood sugar management is with slight scale insulin coverage. She is having a low-grade fever of 100.0F. Urine output is adequate for now. 06/20/2021, I'm seeing this patient for a follow-up. The patient is still off sedation and for the third day and ultimately have not seen a reasonable neurologic recovery. My plan was to scan the patient's brain. Nevertheless, there was ingestion that the patient was going to go into comfort care measures and for that reason the CAT scan of the brain was not done. We are still awaiting final decision from the family in terms of comfort care measures/end-of-life care. Furthermore, this morning, the patient had a bout of GI bleeds with seems to be a upper GI bleed. We are going to keep the tube feeds on hold for now. We'll put the patient IV Protonix and monitor his hemoglobin and this will be managed conservatively. She remains on a mechanical ventilator. She is on assist control mode at the rate of 60 with a tidal volume of 400 and FiO2 of 40% with a PEEP of 5. The blood gases from today shows a pH of 7.43 with a pCO2 of 33 and pO2 of 150. As such, oxygenation has not been issue for this patient and the patient's pulse ox is currently at 98%. Chest x- ray from today is showing no significant interval change. She was in a good location. Findings are essentially stable with some increased interstitial markings bilaterally. Meanwhile, the patient has persistent bacteremia with coagulase-negative staph. ID was involved in a patient was started on daptomycin in combination with Zosyn. The patient is also on Diflucan. The white cell count is down to 3. The pro calcitonin level was elevated at 3.58. In terms of her renal failure, the renal function has been improving. Creatinine is down to 0.9 and BUN is at 32. Sodium level is down to 140. The patient is a DNR/DNI CODE STATUS. Blood sugar management is still slight scale coverage. Urine output is adequate. She is unresponsive at this point in time. She does not grimace or withdraw to deep painful stimulation. As mentioned, she's been off pressors and she has been off sedation. In terms of her cardiac rhythm, she is back into normal sinus and she is off amiodarone drip and she is currently on oral amiodarone at a dose of 200 mg twice a day. Anticoagulation was discontinued. 06/21/2021, patient is being seen for a follow-up. As mentioned earlier, menta tion was an issue. This morning, she is opening her eyes spontaneously. She is grimacing. She is not following any commands but this could be part of her baseline knowing that she has an underlying dementia. Nevertheless, based on my evaluation of this patient, she seems to be much more awake and she's check and she is opening up her eyes looking at her surrounding and she has a good cough and mechanism. As such, I think she is ready for extubation. During this time, the family still making a decision for her was status and considering a end-of-life care. Follow blood cultures are negative. The patient remains on broad-spectrum antibiotics. She is on a combination of Zosyn and daptomycin. She is afebrile. She is currently on no sedation. Pressors and we'll wean down to norepinephrine infusion of 0.04 g per minute. IV fluids are currently at KVO. She is stooling. Her cardiac rhythm is sinus. This morning, she was an assist-control mode of mechanical ventilation. She was on a tidal volume of 400 with an FiO2 of 40% and a PEEP of 5 and a rate of extreme. I flipped her to a pressure support of 5 and a PEEP of 5 and she is able to generate adequate tidal volumes of above 600. Considering extubation today. Chest x-ray from today is showing essentially stable findings. ET tube remains in a good location. Some limited interstitial changes in lung bases bilaterally. Lung volumes are essentially small. NG tube is also in place. In terms of her blood work, the patient has negative blood cultures for now. White echo is at 6.5. Hemoglobin is at 8.2. Platelet count is at 114. Blood gases were not done today. BUN is at 30 with a creatinine of 0.9. Electrolytes are stable. There is a mild component of non-anion gap metabolic acidosis. As mentioned, the patient is a DNR/DNI CODE STATUS. Her cardiac rhythm is sinus. She is off the amiodarone drip. She is currently on oral amiodarone 200 mg by mouth , twice a day and anticoagulation was discontinued. No signs of any GIB 06/22/2021, the patient is extubated. The patient is awake. She knows her name. She knows the month. She thinks she is at home. She is resting comfortably in bed. She is not agitated. I'm going to check her swallow and possibly offer her some diet. She is hemodynamically stable. She is afebrile. Daptomycin has been discontinued. She remains on Zosyn and Diflucan. No other complaints otherwise. She extubated nicely yesterday without any major difficulties. She has a triple-lumen catheter in right IJ and she also has a arterial line for hemodynamic monitoring. She is a DNR/DNI CODE STATUS. There were some interventions by the family to proceed with end-of-life care and hospice. This has not been implemented yet. The patient remains erratic normal sinus rhythm. She is on amiodarone 200 mg by mouth twice a day. She is on no anticoagulants for now.Home medications have been resumed. She is on Keppra for seizures and Synthroid for hypothyroidism. She is on IV fluids in the form of 0.9 at the rate of 20 mL an hour. In terms of her blood work from today, the . Echo is at 5 with a hemoglobin of 7.4. Platelet count is at 123. Normal renal function with a creatinine of 0.8, which is normalized. Serum bicarbs at 21 with a sodium level of 143. No other significant events otherwise for now. Objective - Vital Signs Vital signs: Vital Signs Temp 97.7 F 06/22/21 08:00 Pulse 82 06/22/21 08:00 Resp 23 06/22/21 08:00 BP 157/82 06/19/21 17:00 Pulse Ox 100 06/22/21 08:00 Intake & Output 06/21/21 06/22/21 06/22/21 18:59 06:59 18:59 Intake Total 278.231 260 440 Output Total 425 340 80 Balance -146.769 -80 360 Weight 103.9 kg Intake: IV 240 260 440 0.9 240 160 40 Fluconazole in NaCl,Iso- 100 Osm 200 mg In Saline 1 100ml.bag @ 100 mls/hr IVPB DAILY [facility] Rx#: [id number] Piperacillin-Tazobactam 3 100 100 .375 gm In Sodium Chloride 0.9% 100 ml @ 25 mls/hr IVPB Q8HR [facility] Rx# :[id number] Potassium Chloride 20 meq 100 In Water For Injection 1 100ml.bag @ 50 mls/hr IVPB ONCE [facility] Rx#: [id number] levETIRAcetam IV 500 mg 100 In Sodium Chloride 0.9% 100 ml @ 400 mls/hr IVPB Q12HR [facility] Rx#:[id number] Intake, IV Titration 38.231 Amount Norepinephrine 32 mg In 38.231 Sodium Chloride 0.9% 218 ml @ 0.05 MCG/KG/MIN 2. 126 mls/hr IV .Q24H [facility] Rx#:[id number] Output: Urine 425 340 80 Other: Voiding Method Indwelling Catheter Indwelling Catheter Indwelling Catheter ABP, PAP, CO, CI - Last Documented Arterial Blood Pressure 120/54 - Exam Gen. appearance, the patient awake and alert and she's been extubated and currently she is on room air oxygen. Head exam was generally normal. There was no scleral icterus or corneal arcus. Mucous membranes were moist. Neck was supple and without jugular venous distension, thyromegaly, or carotid bruits. Carotids were easily palpable bilaterally. There was no adenopathy. Lungs were clear to auscultation and percussion, and with normal diaphragmatic excursion. No wheezes or rales were noted. Cardiac exam revealed the PMI to be normally situated and sized. The rhythm was regular and no extrasystoles were noted during several minutes of auscultation. The first and second heart sounds were normal and physiologic splitting of the second heart sound was noted. There were no murmurs, rubs, clicks, or gallops. Abdominal exam revealed normal bowel sounds. The abdomen was soft, non-tender, and without masses, organomegaly, or appreciable enlargement of the abdominal aorta. Examination of the extremities revealed v weak radial, femoral and pedal pulses. There was no cyanosis, clubbing and the patient is developing edema in all 4 extremities. Diminished pulses in all 4 extremities and the patient has been cold and clammy. Examination of the skin revealed no evidence of significant rashes, suspicious appearing nevi or other concerning lesions. Neurologically awake and alert No focal logical deficits. Pupils are equal and reactive to light. No facial asymmetry. No neck stiffness. No nystagmus. There is a preferential gaze to the right inferior direction. The patient is not responding to any painful stimulation. She has been off sedation since noontime yesterday. No clonus. Motor function is reduced in all 4 extremities and the patient has global weakness. She is very weak. She is unable to raise her extremities against gravity. Motor function is probably 0-1 out of 5 in all 4 extremities. We will ask neurosurgery evaluated the patient. She has an adequate cough for now. Gaze is normal. There was a equal and reactive to light. No facial asymmetry. She is edentulous. - Labs CBC & Chem 7: 06/22/21 04:30 06/22/21 04:30 Labs: Abnormal Lab Results - Last 24 Hours (Table) 06/21/21 06/21/21 06/21/21 Range/Units 05:15 11:44 18:09 RBC (3.80-5.40) m/uL Hgb (11.4-16.0) gm/dL Hct (34.0-46.0) % MCV (80.0-100.0) fL RDW (11.5-15.5) % Plt Count (150-450) k/uL Macrocytosis ABG pCO2 34 L (35-45) mmHg ABG pO2 129 H (83-108) mmHg ABG O2 Saturation 99.5 H (94-97) % Chloride (98-107) mmol/L Carbon Dioxide (22-30) mmol/L BUN (7-17) mg/dL POC Glucose (mg/dL) 116 H 108 H (75-99) mg/dL 06/22/21 06/22/21 Range/Units 04:30 04:30 RBC 2.15 L (3.80-5.40) m/uL Hgb 7.4 L (11.4-16.0) gm/dL Hct 22.6 L (34.0-46.0) % MCV 105.3 H (80.0-100.0) fL RDW 18.2 H (11.5-15.5) % Plt Count 123 L (150-450) k/uL Macrocytosis Marked A ABG pCO2 (35-45) mmHg ABG pO2 (83-108) mmHg ABG O2 Saturation (94-97) % Chloride 117 H (98-107) mmol/L Carbon Dioxide 21 L (22-30) mmol/L BUN 23 H (7-17) mg/dL POC Glucose (mg/dL) (75-99) mg/dL Microbiology - Last 24 Hours (Table) 06/19/21 16:36 Blood Culture - Preliminary Blood No Growth after 48 hours 06/18/21 09:42 Blood Culture - Preliminary Blood No Growth after 72 hours 06/18/21 09:32 Blood Culture - Preliminary Blood No Growth after 72 hours 06/19/21 01:18 Gram Stain - Final Sputum Sputum Culture - Final Assessment and Plan Plan: 1 Septic shock , recovered and the patient is hemodynamically stable. The patient several blood cultures that turned out to be coagulase-negative staph. At one point was thought that this was a true infection versus contaminant. She was given vancomycin and daptomycin and currently she is off both of these antibiotics patient is on Zosyn for now. She is hemodynamically stable on no pressors. 2 acute hypoxic respiratory failure secondary to above, recovered and the patient is currently extubated on room air oxygen 3 altered mentation secondary to above, improving although the patient has some baseline neurologic limitation with dementia, awake and alert and following simple commands 4 acute kidney injury secondary to above, recovered 5 acute hyperchloremic hypernatremia, recovered 6 history of recurrent UTIs most recent hospitalization was for E. coli UTI and sepsis 7 history of fall with a previous left A. fib/tib fracture, managed conservatively by orthopedic surgery with interval 8 history of paroxysmal atrial fibrillation, normal cardiac rhythm is sinus rhy thm, 9 obesity with a BMI of 37 10 history of schizoaffective disorder 11 lactic acidosis, improving 12 non-anion gap metabolic acidosis, improving and the bicarb infusion, improved 13 transaminitis 14 Troponin leak 15 pulmonary fibrosis along with some honeycombing and traction bronchiectasis, seen on old CAT scans of the chest. Meanwhile, COVID-19 testing was negative. 16 Intermediate resident with a poor baseline performance and functional status 17 acute upper GI bleeding, inactive in stable plan Keep the patient on room air oxygen Will help this patient with incentive spirometer An aggressive pulmonary toileting. The patient has been extubated successfully Continue same antibiotic coverage No need for anticoagulation IV Protonix and hold the tube feeds Remove the arterial line Maintain supportive care Possible end-of-life care , awaiting further direction from the family. Meanwhile we are going to proceed with further weaning. Harry this patient to medical transfer this patient to medical floor with remote telemetry.
[2021-06-22] MEDS: LEVOTHYROXINE IVP 100 MCG/5 ML VIAL IV SCH (10:10)
--- NOTE | 2021-06-22 11:43 | PN ---
PROGRESS NOTE This lady has been extubated. She seems to be somewhat responsive. She remains in sinus rhythm. Unable to take any oral medications because of swallowing issues. Her hemoglobin is further down. I will, therefore, not give her any anticoagulation. She is now in sinus rhythm, has had atrial fibrillation earlier. Plan is to defer any oral medications until the swallowing issue is resolved. Overall prognosis remains guarded. She is hemodynamically stable, has fairly decent urine output. The patient, however, does not communicate well. She seems to just have a stare and does not respond. Vitals are stable. There is JVD 1 cm. No carotid bruit. S1-S2 heard normally. Short systolic murmur. Lungs reveal bilateral air entry somewhat diminished. Abdomen is soft. The rest of physical examination was limited. I am recommending that we continue current medical regimen. Once swallowing issues are resolved, amiodarone can be resumed orally. Prognosis remains guarded. MMODL / IJN: [id number] /
[2021-06-22 15:28] LABS: Glucose,Whole Blood 75 mg/dL (75-99)
--- NOTE | 2021-06-22 15:57 | P.PN ---
Progress Note - Text Progress Note Date: 06/22/21 Chief Complaint: Decreased responsiveness History of presenting complaint: This is a 56-year-old patient, follows with Dr. Beltrán at the [facility]. Patient was recently admitted to the hospital in May 05 and transferred on May 10 2 [facility] in [place].Admitted with UTI from cystitis with sepsis, bilateral pneumonia, septic shock, acute kidney injury with ATN.IV fluids. IV ceftriaxone. Admitted to the ICU. The transfer was done for continuous EEG monitoring. On this occasion patient is brought to with unresponsiveness. She was hypotensive. Acute kidney injury. Some abnormal liver enzymes, UA was positive. Patient was negative for COVID-19. Patient was intubated and put on the mechanical ventilator. Has been getting IV fluid boluses. This morning she has received about 4 L of fluids total. Has been in atrial fibrillation. Has or G-tube. Drips include we will affect, propofol, normal saline. FiO2 100% with a PEEP of 5. Febrile Admitted with acute metabolic/toxic encephalopathy from sepsis, septic shock, pneumonia, acute kidney injury likely from ATN, atrial flutter fibrillation rate uncontrolled, metabolic acidosis. June 17: ICU: On the ventilator with FiO2 50 PEEP of 5. Drips include norepinephrine and propofol. Atrial fibrillation rate better controlled. On IV amiodarone. Controlled on IV amiodarone. Blood cultures growing gram-positive cocci. Antibiotics changed to IV Zosyn and vancomycin. Fever is started to come down June 18: ICU: On the ventilator with FiO2 50 PEEP of 5. Drips include norepinephrine. 2 feeding at 36 mL/h. patient has remained afebrile. Patient's son is considering comfort care June 19: ICU: On the ventilator with a PEEP of 5 and FiO2 50%. On norepinephrine drip. OG-tube feeding. Prognosis guarded. Patient's son is talking to the family members. June 20: ICU: Ventilator: FiO2 40 and a PEEP of 5. Drips include norepinephrine. Patient been off sedation for 3 days. No meaningful response. Patient has some GI bleed this morning. 2 feeding was held. IV Protonix added. Does not respond to painful stimuli. June 21: This morning patient was slightly more responsive. Opening eyes spontaneously. This morning. Responding of it more. Patient was extubated. Lethargic. Sinus rhythm June 22: ICU: Bit more awake. Following simple commands. 95% on room air. Sinus rhythm. Appears comfortable. A bit congested in the throat. Review of systems: Unable to obtain Active Medications Albuterol/Ipratropium (Ipratropium-Albuterol 3 Ml Neb) 3 ml INHALATION RT-QID [facility] Last Admin: 06/22/21 12:08 Dose: 3 ml Documented by: Amiodarone HCl (Amiodarone 200 Mg Tab) 200 mg PO BID [facility] Last Admin: 06/22/21 08:37 Dose: Not Given Documented by: Levetiracetam 500 mg/ Sodium (Chloride) 105 mls @ 400 mls/hr IVPB Q12HR [facility] Last Admin: 06/22/21 08:05 Dose: 400 mls/hr Documented by: Piperacillin Sod/Tazobactam (Sod 3.375 gm/ Sodium Chloride) 100 mls @ 25 mls/hr IVPB Q8HR [facility] Last Admin: 06/22/21 08:11 Dose: 25 mls/hr Documented by: Fluconazole/Sodium Chloride (200 mg/ IV Solution) 100 mls @ 100 mls/hr IVPB DAILY [facility] Last Admin: 06/22/21 08:37 Dose: 100 mls/hr Documented by: Insulin Aspart (Insulin Aspart (Novolog) 100 Unit/Ml Vial) 0 unit SQ Q6H [facility]; Protocol Last Admin: 06/22/21 15:32 Dose: Not Given Documented by: Levothyroxine Sodium (Levothyroxine Ivp 100 Mcg/5 Ml Vial) 50 mcg IV Q48H [facility] Last Admin: 06/22/21 10:10 Dose: 50 mcg Documented by: Miscellaneous Information (Potassium Replacement Protocol 1 Each Misc) 1 each MISCELLANE DAILY PRN; Protocol PRN Reason: Per Protocol Naloxone HCl (Naloxone 0.4 Mg/Ml 1 Ml Vial) 0.2 mg IV Q2M PRN PRN Reason: Opioid Reversal Pantoprazole Sodium (Pantoprazole 40 Mg/10 Ml Vial) 40 mg IV BID [facility] Last Admin: 06/22/21 08:05 Dose: 40 mg Documented by: Past medical history to include: Atrial fibrillation, bibasilar fibrotic lung changes with honeycombing, schizoaffective disorder, nicotine use, in February/2021 patient did have a left tibial plate to and left proximal fibular fracture Social history: ECF. Smoker, until recently. Marijuana use history of Family history: Could not be obtained. Physical examination: VITAL SIGNS: Afebrile, 74, 26, 106/62, 96% room air GENERAL: Laying in bed, tired, more awake EYES: Pupils equal. Conjunctiva normal. HEENT: External appearance of nose and ears normal, oral cavity mucous membranes. NECK: JVD unable to assess; masses not palpable. HEART: First and second heart sounds are normal; no edema. LUNGS: Respiratory rate increased; decreased breath sounds ABDOMEN: Soft, nontender, liver spleen not palpable, no masses palpable. PSYCH: Following simple commands INVESTIGATIONS, reviewed in the clinical context: June 22: WBC 5 hemoglobin 7.4 platelets 123 potassium 3.6 creatinine 0.8 chest x-ray: Bilateral opacities June 21: WBC 6.5 hemoglobin 8.2 platelets 114 potassium 3.7 BUN 30 creatinine 0.91 June 20: WBC 3.3 hemoglobin 9.3 platelets 102 potassium 4.2 BUN 32 creatinine 0.96. Chest x-ray bilateral airspace disease June 19: WBC 10.4 hemoglobin 8.9 platelets 114 potassium 2.9 creatinine 1 AST 139 ALT 291 June 18: WBC 13.8 hemoglobin 10.7 platelets 132 potassium 3.7 BUN 53 creatinine 1.68 AST 495 ALT 527 June 17: WBC 15.9 hemoglobin 11 platelets 142, sodium 149 potassium 3.2 (74 creatinine 2.90, bicarb 19 AST 592 ALT 481 Blood cultures growing: Coagulase negative staph WBC 18.4 hemoglobin 14.2 platelets 399, sodium 154 potassium 5.7 BUN 83 creatinine 3.65 lactic acid 5 AST 238 ALT 128 Troponin I 0.148, 0.4-3 EKG tracing personally reviewed by me-atrial flutter with 2 was 21 conduction Chest x-ray film personally reviewed by me-bilateral infiltrates/also some chronicity Previous testing: May 10: BUN 17 creatinine 0.93, AST/ALT both normal CT chest [02/24/2021] chronic parenchymal fibrotic changes greatest in the bases. With honeycombing. It is of groundglass opacities. 2-D echocardiogram: EF 55 have a 60%. [id number] tricuspid regurgitation. Some element of pulmonary hypertension Assessment and plan: -Acute/metabolic/toxic encephalopathy. From sepsis: Improving -pneumonia suspected gram-negative organism, patient has underlying also chronic fibrotic changes IV Zosyn -Positive blood cultures for coagulase-negative staph,-likely contamination IV daptomycin, discontinued -Acute hypoxic respiratory failure, multifactorial improving Status post ventilator assisted. Extubated June 21 -Chronic bilateral pulmonary fibrosis with honeycombing Bronchodilators. -Septic shock: Recovered Was on IV levo fed. IV fluids -Questionable seizure on last admission patient was transferred to [facility] in [place] for further workup. Neurology's request records from [facility]. IV Keppra. Per Dr. Laws from neurology, patient's son does not want any further testing -Acute kidney injury, likely from ATN from sepsis: Corrected Admission creatinine 3.65. Patient's creatinine was 0.93 on May 10 -Metabolic and lactic acidosis from renal failure/sepsis: Improved Received IV bicarbonate drip -Paroxysmal atrial flutter-fibrillation, in sinus rhythm By mouth amiodarone. Eliquis . -Chronic pulmonary fibrosis especially at the bases with honeycombing -Schizoaffective disorder On Invega -COPD in a smoker DuoNeb. -Hypernatremia from free water deficit: Improved IV fluids. Follow sodium -Hyperkalemia from acute kidney injury: Improved Hydrate patient. -Likely acute ischemic hepatitis from hypotension: Improvement Follow-up LFTs. Patient continued on amiodarone per cardiology -Troponin leak from hemodynamic mismatch and sepsis. Not a clinical picture of acute coronary syndrome Been followed by cardiology -GI bleed. Possible stress gastritis. Stable IV PPI 2 feeding held More awake, following simple commands On IV Keppra, IV Zosyn. Supportive care to continue
--- NOTE | 2021-06-22 17:43 | CT ---
EXAMINATION TYPE: CT brain wo con DATE OF EXAM: 06/22/2021 COMPARISON: 05/07/2021 HISTORY: AMS, pt not at her baseline since being extubated yesterday CT DLP: 1173.4 mGycm Automated exposure control for dose reduction was used. There is some cerebral cortical atrophy. There is no mass effect nor midline shift. There is no sign of intracranial hemorrhage. Calvarium is intact. IMPRESSION: Cerebral atrophy. No acute intracranial abnormality. No change.
[2021-06-22 18:09] LABS: Glucose,Whole Blood 73 mg/dL (75-99)
--- NOTE | 2021-06-22 18:19 | PN ---
PROGRESS NOTE DATE OF SERVICE: 06/22/2021 REASON FOR FOLLOWUP: Aspiration pneumonia. INTERVAL HISTORY: The patient is currently afebrile. The patient is breathing comfortably, currently on room air. The patient is clinically stable on pressor support. No vomiting, diarrhea or other changes reported by the nursing staff. PHYSICAL EXAMINATION: Blood pressure 100/61 with a pulse of 60, temperature 97.8. She is 96% on room air. General description is a middle-aged female lying in bed in no distress. Respiratory system: Unlabored breathing, decreased breath sounds at the base. No wheeze. Heart S1, S2. Regular rate and rhythm. Abdomen soft, no tenderness. LABS: Hemoglobin is 7.4, white count 5.0, BUN of 23, creatinine 0.80. Blood culture repeat has been negative. Sputum so far negative. DIAGNOSTIC IMPRESSION AND PLAN: 1. Patient with aspiration pneumonia for which the patient is currently on Zosyn. Sputum has been negative for any resistant pathogen. Will transition to oral antibiotic on discharge. 2. Patient with positive blood cultures, coagulase negative Staph, likely contaminant. Repeat blood culture negative. Patient is currently off daptomycin. MMODL / IJN: [id number] /
[2021-06-22 23:51] LABS: Glucose,Whole Blood 74 mg/dL (75-99)
[2021-06-23 04:25] LABS: ALT 177 U/L (4-34); African American GFR (CKD) >90 (>60 ml/min/1.73 sqM); Albumin 2.3 g/dL (3.5-5.0); Anion Gap 4 mmol/L; Blood Urea Nitrogen 21 mg/dL (7-17); Calcium 8.4 mg/dL (8.4-10.2); Carbon Dioxide 20 mmol/L (22-30); Chloride 120 mmol/L (98-107); Glucose 83 mg/dL (74-99); Non-African American GFR(CKD) 84 (>60 ml/min/1.73 sqM); Sodium 144 mmol/L (137-145); Total Bilirubin 1.4 mg/dL (0.2-1.3); Total Protein 5.1 g/dL (6.3-8.2)
[2021-06-23 04:49] LABS: AST 201 U/L (14-36); Alkaline Phosphatase 91 U/L (38-126)
[2021-06-23] MEDS: INSULIN ASPART (NovoLOG) 100 UNIT/ML VIAL SQ SCH ×3 (06:06→16:46)
[2021-06-23] MEDS: IPRATROPIUM-ALBUTEROL 3 ML NEB INHALATION SCH ×4 (07:47→21:23)
[2021-06-23 07:50] LABS: ALT 208 U/L (4-34); AST 210 U/L (14-36); African American GFR (CKD) >90 (>60 ml/min/1.73 sqM); Albumin 2.3 g/dL (3.5-5.0); Alkaline Phosphatase 113 U/L (38-126); Anion Gap 5 mmol/L; Blood Urea Nitrogen 19 mg/dL (7-17); Calcium 8.7 mg/dL (8.4-10.2); Carbon Dioxide 20 mmol/L (22-30); Chloride 120 mmol/L (98-107); Glucose 90 mg/dL (74-99); Non-African American GFR(CKD) 84 (>60 ml/min/1.73 sqM); Potassium 3.6 mmol/L (3.5-5.1); Sodium 145 mmol/L (137-145); Total Bilirubin 1.2 mg/dL (0.2-1.3); Total Protein 5.3 g/dL (6.3-8.2)
[2021-06-23] MEDS: AMIODARONE 200 MG TAB PO SCH ×2 (09:29→20:03)
[2021-06-23] MEDS: PANTOPRAZOLE 40 MG/10 ML VIAL IV SCH ×2 (09:55→20:03)
[2021-06-23] MEDS: PIPERACILLIN-TAZOBACTAM 3.375 GM in SODIUM CHLORIDE 0.9% 100 ML IVPB SCH ×2 (09:55→16:43)
[2021-06-23] MEDS: FLUCONAZOLE IN NACL,ISO-OSM 200 MG in SALINE 1 100ML.BAG IVPB SCH (09:55)
[2021-06-23] MEDS: levETIRAcetam IV 500 MG in SODIUM CHLORIDE 0.9% 100 ML IVPB SCH ×2 (09:55→20:03)
[2021-06-23 11:56] LABS: Glucose,Whole Blood 74 mg/dL (75-99)
[2021-06-23 11:56] LABS: Glucose,Whole Blood 44 mg/dL (75-99)
--- NOTE | 2021-06-23 12:55 | P.PN ---
Subjective Progress Note Date: 06/23/21 Principal diagnosis: Septic shock, recovered On 06/23/2021 patient seen in follow-up in the intensive care unit, she was successfully weaned and extubated from mechanical ventilator on 06/21/2021, tolerating extubation quite well so far, currently on room air with a pulse ox of 96%, she is breathing comfortably, she is awake and alert, she does have underlying dementia, and she is able to make her basic needs known, appears to be in no acute distress, breathing comfortably, denies any specific complaints. She is unemployed normal saline at a rate of 20 ML per hour, she is in sinus mechanism with a rate of 73 bpm, she remains on a combination of Zosyn and Diflucan for underlying sepsis, so far her microbiology showed negative sputum cultures, her multiple blood cultures were positive for coagulase- negative staph, most recently blood cultures drawn on 06/18/2021 and 06/19/2021 have been negative. She's been afebrile, hemodynamically she has been stable. Today's brain CT shows no acute intracranial abnormality, cerebral atrophy, no change from previous exam. Most recent chest x-ray was done yesterday showing interval extubation, and bilateral multifocal opacities. Labs have been reviewed, CBC still pending, but the white count on the yesterday's labs was normal at 5, hemoglobin was 7.4, platelet count was 123, her BMP from today has resulted and sodium is 145, potassium is 3.6, chloride is 120, CO2 is 20, BUN is 19, creatinine 0.79, AST is 210, ALT is 208, alk phos is 113. Patient remains nothing by mouth except for ice chips. Her OG tube has been removed with extubation, and patient is awaiting evaluation by the speech therapy for poss ibility of restarting oral feedings. No other acute events overnight. Objective - Vital Signs Vital signs: Vital Signs Temp 97.4 F L 06/23/21 08:00 Pulse 74 06/23/21 11:53 Resp 14 06/23/21 10:00 BP 101/67 06/23/21 10:00 Pulse Ox 96 06/23/21 10:00 Intake & Output 06/22/21 06/23/21 06/23/21 18:59 06:59 18:59 Intake Total 680 300 380 Output Total 360 180 Balance 320 120 380 Weight 104.1 kg Intake: IV 680 300 380 0.9 180 200 80 Fluconazole in NaCl,Iso- 100 100 Osm 200 mg In Saline 1 100ml.bag @ 100 mls/hr IVPB DAILY [facility] Rx#: [id number] Piperacillin-Tazobactam 3 200 100 .375 gm In Sodium Chloride 0.9% 100 ml @ 25 mls/hr IVPB Q8HR [facility] Rx# :[id number] Potassium Chloride 20 meq 100 In Water For Injection 1 100ml.bag @ 50 mls/hr IVPB ONCE [facility] Rx#: [id number] levETIRAcetam IV 500 mg 100 100 100 In Sodium Chloride 0.9% 100 ml @ 400 mls/hr IVPB Q12HR [facility] Rx#:[id number] Output: Urine 360 180 Other: Voiding Method Indwelling Catheter Indwelling Catheter # Voids 0 ABP, PAP, CO, CI - Last Documented Arterial Blood Pressure 120/56 - Exam GENERAL EXAM: Alert, oriented times one, 56-year-old morbidly obese white female, with underlying history of dementia, comfortable in no apparent dis tress. HEAD: Normocephalic/atraumatic. EYES: Normal reaction of pupils, equal size. Conjunctiva pink, sclera white. NOSE: Clear with pink turbinates. THROAT: No erythema or exudates. NECK: No masses, no JVD, no thyroid enlargement, no adenopathy. CHEST: No chest wall deformity. Symmetrical expansion. LUNGS: Equal air entry with no crackles, wheeze, rhonchi or dullness. CVS: Regular rate and rhythm, normal S1 and S2, no gallops, no murmurs, no rubs ABDOMEN: Soft, nontender. No hepatosplenomegaly, normal bowel sounds, no guarding or rigidity. EXTREMITIES: No clubbing, no edema, no cyanosis, 2+ pulses and upper and lower extremities. MUSCULOSKELETAL: Muscle strength and tone normal. SPINE: No scoliosis or deformity SKIN: No rashes CENTRAL NERVOUS SYSTEM: Alert and oriented -3. No focal deficits, tone is normal in all 4 extremities. PSYCHIATRIC: Alert and oriented -3. Appropriate affect. Intact judgment and insight. - Labs CBC & Chem 7: 06/22/21 04:30 06/23/21 06:51 Labs: Abnormal Lab Results - Last 24 Hours (Table) 06/22/21 06/22/21 06/23/21 Range/Units 18:08 23:50 03:55 Potassium 6.0 H (3.5-5.1) mmol/L Chloride 120 H (98-107) mmol/L Carbon Dioxide 20 L (22-30) mmol/L BUN 21 H (7-17) mg/dL POC Glucose (mg/dL) 73 L 74 L (75-99) mg/dL Total Bilirubin 1.4 H (0.2-1.3) mg/dL AST 201 H (14-36) U/L ALT 177 H (4-34) U/L Total Protein 5.1 L (6.3-8.2) g/dL Albumin 2.3 L (3.5-5.0) g/dL 06/23/21 06/23/21 06/23/21 Range/Units 06:51 11:54 11:55 Potassium (3.5-5.1) mmol/L Chloride 120 H (98-107) mmol/L Carbon Dioxide 20 L (22-30) mmol/L BUN 19 H (7-17) mg/dL POC Glucose (mg/dL) 44 L 74 L (75-99) mg/dL Total Bilirubin (0.2-1.3) mg/dL AST 210 H (14-36) U/L ALT 208 H (4-34) U/L Total Protein 5.3 L (6.3-8.2) g/dL Albumin 2.3 L (3.5-5.0) g/dL Microbiology - Last 24 Hours (Table) 06/18/21 09:42 Blood Culture - Preliminary Blood No Growth after 120 hours 06/18/21 09:32 Blood Culture - Preliminary Blood No Growth after 120 hours 06/19/21 16:36 Blood Culture - Preliminary Blood No Growth after 72 hours Assessment and Plan Plan: 1 Septic shock , recovered and the patient is hemodynamically stable. The patient several blood cultures that turned out to be coagulase-negative staph. At one point was thought that this was a true infection versus contaminant. She was given vancomycin and daptomycin and currently she is off both of these antibiotics patient is on Zosyn for now. She is hemodynamically stable on no pressors. 2 acute hypoxic respiratory failure secondary to above, recovered, patient has been extubated on 06/21/2021, tolerating extubation quite well so far 3 altered mentation secondary to above, improving although the patient has some baseline neurologic limitation with dementia, awake and alert and following simple commands 4 acute kidney injury secondary to above, recovered 5 acute hyperchloremic hypernatremia, recovered 6 history of recurrent UTIs most recent hospitalization was for E. coli UTI and sepsis 7 history of fall with a previous left A. fib/tib fracture, managed conservatively by orthopedic surgery with interval 8 history of paroxysmal atrial fibrillation, normal cardiac rhythm is sinus rhythm, 9 obesity with a BMI of 37 10 history of schizoaffective disorder 11 lactic acidosis, improving 12 non-anion gap metabolic acidosis, improving and the bicarb infusion, improved 13 transaminitis 14 Troponin leak 15 pulmonary fibrosis along with some honeycombing and traction bronchiectasis, seen on old CAT scans of the chest. Meanwhile, COVID-19 testing was negative. 16 Group Home resident with a poor baseline performance and functional status 17 acute upper GI bleeding, inactive in stable Plan: Maintain aspiration precautions Hemodynamically patient has remained stable, vital signs are stable, she is afebrile Remains on room air, tolerating extubation well so far No acute events overnight Continues on a combination of Zosyn and Diflucan, ID service is following Latest blood cultures remain negative Awaiting speech evaluation for possibility of restarting oral feedings Stable for transfer out of intensive care unit to regular medical surgical floor I performed a history & physical examination of the patient and discussed their management with my nurse practitioner, Tiara Main. I reviewed the nurse practitioner's note and agree with the documented findings and plan of care. Lung sounds are positive for diminished breath sounds throughout the lung wright. The findings and the impression was discussed with the patient. I attest to the documentation by the nurse practitioner. Time with Patient: Less than 30
[2021-06-23 13:45] VITALS: BMI 35.9
--- NOTE | 2021-06-23 13:52 | P.DS ---
Providers Date of admission: 06/16/21 03:30 Expected date of discharge: 06/23/21 Attending physician: Perry Rock Consults: 06/16/21 03:30 Consult Physician Routine Consulting Provider: Keo Mcintosh Consult Reason/Comments: icu Do you want consulting provider notified?: Yes Consult Physician Routine Consulting Provider: Mert Hebert Consult Reason/Comments: [id number] Do you want consulting provider notified?: Yes Consult Physician Urgent Consulting Provider: Brianna Miranda Consult Reason/Comments: arf Do you want consulting provider notified?: Yes 06/16/21 13:32 Consult Physician Routine Consulting Provider: John Laws Consult Reason/Comments: Questionable seizures Do you want consulting provider notified?: Yes 06/18/21 09:17 Consult Physician Routine Consulting Provider: Nabil Ibarra Consult Reason/Comments: Bacteremia Do you want consulting provider notified?: Yes [facility] Course: Chief Complaint: Decreased responsiveness History of presenting complaint: This is a 56-year-old patient, follows with Dr. Beltrán at the [facility]. Patient was recently admitted to the hospital in May 05 and transferred on May [address] [place] [address] in [place].Admitted then UTI from cystitis with sepsis, bilateral pneumonia, septic shock, acute kidney injury with ATN.IV fluids. IV ceftriaxone. Admitted to the ICU. transfer out was done for continuous EEG monitoring. On this occasion patient is brought with unresponsiveness. hypotensive. Acute kidney injury. Some abnormal liver enzymes, UA was positive. Patient was negative for COVID-19. Patient was intubated and put on the mechanical ventilator. Has been getting IV fluid boluses. Has been in atrial fibrillation. Intubated Admitted with acute metabolic/toxic encephalopathy from sepsis, septic shock, pneumonia, acute kidney injury likely from ATN, atrial flutter fibrillation rate uncontrolled, metabolic acidosis. ICU drips include norepinephrine, propofol, OG tube feeding. She also had a GI bleed that was self-limited. There was stopped from this family about possible comfort care. On June 21 patient was extubated. Patient received IV Zosyn and vancomycin. Blood cultures failed to be a contaminant hence vancomycin/daptomycin was discontinued. Patient was started on Keppra by neurology. Today: Laying in bed. Comfortable. 95% room air. Patient has declined a PEG tube. Nurse called the patient's son and the son said last the patient. Patient hasn't done too well with swallowing. Comfort feeding will be done. At this point patient is a DO NOT RESUSCITATE. Depending on clinical course son may decide about hospice. Per Dr. Brush from ID patient to be changed over to Augmentin. Dose of amiodarone cutback. Discussion and discharge planning more than 35 minutes Consultation: Dr. Mcintosh partners from liquor tester Dr. Ibarra from ID Dr. Garza and partners from nephrology [facility] Neurology service Past medical history to include: Atrial fibrillation, bibasilar fibrotic lung changes with honeycombing, schizoaffective disorder, nicotine use, in February/2021 patient did have a left tibial plate to and left proximal fibular fracture Social history: ECF. Smoker, until recently. Marijuana use history of Family history: Could not be obtained. Physical examination: VITAL SIGNS: 97.4, 70, 18, 96% on room air GENERAL: Laying in bed, tired, awake EYES: Pupils equal. Conjunctiva normal. HEENT: External appearance of nose and ears normal, oral cavity mucous membranes. NECK: JVD unable to assess; masses not palpable. HEART: First and second heart sounds are normal; no edema. LUNGS: Respiratory rate increased; decreased breath sounds ABDOMEN: Soft, nontender, liver spleen not palpable, no masses palpable. PSYCH: Following simple commands, and answers questions INVESTIGATIONS, reviewed in the clinical context: June 23: Potassium 3.6 creatinine 0.79 AST 210 ALT 208 June 22: chest x-ray: Bilateral opacities June 17: WBC 15.9 hemoglobin 11 platelets 142, sodium 149 potassium 3.2 (74 creatinine 2.90, bicarb 19 AST 592 ALT 481 Blood cultures growing: Coagulase negative staph WBC 18.4 hemoglobin 14.2 platelets 399, sodium 154 potassium 5.7 BUN 83 creatinine 3.65 lactic acid 5 AST 238 ALT 128 Troponin I 0.148, 0.4-3 EKG tracing personally reviewed by me-atrial flutter with 2 was 21 conduction Chest x-ray film personally reviewed by me-bilateral infiltrates/also some chronicity Previous testing: May 10: BUN 17 creatinine 0.93, AST/ALT both normal CT chest [02/24/2021] chronic parenchymal fibrotic changes greatest in the bases. With honeycombing. It is of groundglass opacities. 2-D echocardiogram: EF 55 have a 60%. [id number] tricuspid regurgitation. Some element of pulmonary hypertension Assessment and plan: -Acute/metabolic/toxic encephalopathy. From sepsis: Improving -pneumonia suspected gram-negative organism, patient has underlying also chronic fibrotic changes IV Zosyn-changed to Augmentin 875 twice a day for 7 more days -Positive blood cultures for coagulase-negative staph,-likely contamination IV daptomycin, discontinued -Acute hypoxic respiratory failure, multifactorial improving Status post ventilator assisted. Extubated June 21. No 96% on room air -Chronic bilateral pulmonary fibrosis with honeycombing Bronchodilators. -Septic shock: Recovered Was on IV levo fed. IV fluids -Questionable seizure on last admission patient was transferred to [place] in [place] for further workup. Neurology's request records from [facility]. IV Keppra. Per Dr. Laws from neurology, patient's son does not want any further testing -Acute kidney injury, likely from ATN from sepsis: Corrected Admission creatinine 3.65. Patient's creatinine was 0.93 on May 10 -Metabolic and lactic acidosis from renal failure/sepsis: Improved Received IV bicarbonate drip -Paroxysmal atrial flutter-fibrillation, in sinus rhythm By mouth amiodarone. Eliquis . -Chronic pulmonary fibrosis especially at the bases with honeycombing -Schizoaffective disorder On Invega -COPD in a smoker Manfred. -Hypernatremia from free water deficit: Improved IV fluids. Follow sodium -Hyperkalemia from acute kidney injury: Improved Hydrate patient. -Likely acute ischemic hepatitis from hypotension: Improvement Follow-up LFTs. Patient continued on amiodarone per cardiology -Troponin leak from hemodynamic mismatch and sepsis. Not a clinical picture of acute coronary syndrome Been followed by cardiology -GI bleed. Possible stress gastritis. Stable PPI -DO NOT RESUSCITATE [facility] Feeding: Comfort feeding with aspiration precautions Labs: CBC CMP: 3 days Plan - Discharge Summary New Discharge Prescriptions: New levETIRAcetam [Keppra] 500 mg PO BID #1 tab Amoxicillin/Potassium Clav [Augmentin 875-125 Tablet] 1 tab PO Q12HR #14 tab Amiodarone [Cordarone] 200 mg PO DAILY #1 tab Ipratropium-Albuterol Nebulize [Duoneb 0.5 mg-3 mg/3 ml Soln] 3 ml INHALATION TID ml Continue DULoxetine HCL [Cymbalta] 30 mg PO DAILY 30 Days capsule. Albuterol Inhaler [Ventolin Hfa Inhaler] 2 puff INHALATION RT-Q4H PRN PRN Reason: Shortness Of Breath Or Wheezing Aspirin 81 mg PO DAILY #30 chew Melatonin 3 mg PO HS PRN PRN Reason: Insomnia Levothyroxine Sodium [Synthroid] 50 mcg PO DAILY@0500 Folic Acid 1 mg PO DAILY Changed Pantoprazole [Protonix] 40 mg PO BID #0 Discontinued Heparin Sodium,Porcine [Heparin Sodium] 5,000 unit SQ Q8HR Potassium Chloride [Klor-Con 20] 40 meq PO DAILY Ibuprofen [Motrin Ib] 200 mg PO Q6H PRN PRN Reason: Pain Donepezil [Aricept] 5 mg PO DAILY Discharge Medication List DULoxetine HCL [Cymbalta] 30 mg PO DAILY 30 Days capsule. 08/13/20 [Rx] Albuterol Inhaler [Ventolin Hfa Inhaler] 2 puff INHALATION RT-Q4H PRN 02/21/21 [History] Aspirin 81 mg PO DAILY #30 chew 02/25/21 [Rx] Folic Acid 1 mg PO DAILY 06/16/21 [History] Levothyroxine Sodium [Synthroid] 50 mcg PO DAILY@0500 06/16/21 [History] Melatonin 3 mg PO HS PRN 06/16/21 [History] Amiodarone [Cordarone] 200 mg PO DAILY #1 tab 06/23/21 [Rx] Amoxicillin/Potassium Clav [Augmentin 875-125 Tablet] 1 tab PO Q12HR #14 tab 06/23/21 [Rx] Ipratropium-Albuterol Nebulize [Duoneb 0.5 mg-3 mg/3 ml Soln] 3 ml INHALATION TID ml 06/23/21 [Rx] Pantoprazole [Protonix] 40 mg PO BID #0 06/23/21 [Rx] levETIRAcetam [Keppra] 500 mg PO BID #1 tab 06/23/21 [Rx] Follow up Appointment(s)/Referral(s): Markie Beltrán DO [Primary Care Provider] - 1-2 days
[2021-06-23 16:47] LABS: Glucose,Whole Blood 69 mg/dL (75-99)
[2021-06-23] MEDS ORDERED: DEXTROSE 50% SYRINGE 50 ML IVP ONE (16:47)
[2021-06-23] MEDS ORDERED: DEXTROSE 50% SYRINGE 50 ML IVP STA (16:51)
[2021-06-23 17:03] LABS: Glucose,Whole Blood 87 mg/dL (75-99)
[2021-06-24 00:50] LABS: Glucose,Whole Blood 80 mg/dL (75-99)
[2021-06-24] MEDS: PIPERACILLIN-TAZOBACTAM 3.375 GM in SODIUM CHLORIDE 0.9% 100 ML IVPB SCH ×3 (00:50→16:18)
[2021-06-24] MEDS: INSULIN ASPART (NovoLOG) 100 UNIT/ML VIAL SQ SCH ×4 (00:50→20:39)
[2021-06-24 05:39] LABS: Glucose,Whole Blood 70 mg/dL (75-99)
[2021-06-24] MEDS: IPRATROPIUM-ALBUTEROL 3 ML NEB INHALATION SCH ×4 (07:40→20:31)
[2021-06-24] MEDS: PANTOPRAZOLE 40 MG/10 ML VIAL IV SCH (09:06)
[2021-06-24] MEDS: FLUCONAZOLE IN NACL,ISO-OSM 200 MG in SALINE 1 100ML.BAG IVPB SCH (09:09)
[2021-06-24] MEDS: AMIODARONE 200 MG TAB PO SCH ×2 (09:09→20:56)
[2021-06-24] MEDS: levETIRAcetam IV 500 MG in SODIUM CHLORIDE 0.9% 100 ML IVPB SCH (09:09)
[2021-06-24] MEDS: LEVOTHYROXINE IVP 100 MCG/5 ML VIAL IV SCH (10:32)
--- NOTE | 2021-06-24 11:11 | P.PN ---
Subjective Progress Note Date: 06/23/21 Patient was seen for a follow-up. Patient was initially seen by Dr. John Laws. Please refer to his note for details. Patient is laying comfortably in the bed, appears to have flat affect. Oxygen through nasal cannula. Patient denies headache. She thinks she is in [place]. Objective - Vital Signs Vital signs: Vital Signs Temp 98.6 F 06/23/21 20:00 Pulse 58 L 06/23/21 21:29 Resp 14 06/23/21 20:00 BP 100/63 06/23/21 20:00 Pulse Ox 96 06/23/21 20:00 Intake & Output 06/23/21 06/23/21 06/24/21 06:59 18:59 06:59 Intake Total 300 640 180 Output Total 180 Balance 120 640 180 Weight 104.1 kg 104.1 kg Intake: IV 300 640 180 0.9 200 240 80 Fluconazole in NaCl,Iso- 200 Osm 200 mg In Saline 1 100ml.bag @ 100 mls/hr IVPB DAILY NIESHA Rx#: [id number] Piperacillin-Tazobactam 3 100 .375 gm In Sodium Chloride 0.9% 100 ml @ 25 mls/hr IVPB Q8HR NIESHA Rx# :[id number] levETIRAcetam IV 500 mg 100 100 100 In Sodium Chloride 0.9% 100 ml @ 400 mls/hr IVPB Q12HR NIESHA Rx#:[id number] Output: Urine 180 Other: Voiding Method Indwelling Catheter External Catheter External Catheter # Voids 0 1 0 ABP, PAP, CO, CI - Last Documented Arterial Blood Pressure 120/56 - Exam Patient is awake, but slow mentation. Very prolonged latency time to answer any questions. Speech is slightly slurred, no aphasia. Pupils are round and reacting. Face appears symmetric. Tongue protrudes the midline. Patient appears generalized weak in the arms and legs. Farmworker General appears only 2-3 bilaterally. Patient did not cooperate with testing. Patient has significant peripheral edema. Reflexes are hypoactive. Plantars are mute. - Labs CBC & Chem 7: 06/22/21 04:30 06/23/21 06:51 Labs: Abnormal Lab Results - Last 24 Hours (Table) 06/22/21 06/23/21 06/23/21 Range/Units 23:50 03:55 06:51 Potassium 6.0 H (3.5-5.1) mmol/L Chloride 120 H 120 H (98-107) mmol/L Carbon Dioxide 20 L 20 L (22-30) mmol/L BUN 21 H 19 H (7-17) mg/dL POC Glucose (mg/dL) 74 L (75-99) mg/dL Total Bilirubin 1.4 H (0.2-1.3) mg/dL AST 201 H 210 H (14-36) U/L ALT 177 H 208 H (4-34) U/L Total Protein 5.1 L 5.3 L (6.3-8.2) g/dL Albumin 2.3 L 2.3 L (3.5-5.0) g/dL 06/23/21 06/23/21 06/23/21 Range/Units 11:54 11:55 16:46 Potassium (3.5-5.1) mmol/L Chloride (98-107) mmol/L Carbon Dioxide (22-30) mmol/L BUN (7-17) mg/dL POC Glucose (mg/dL) 44 L 74 L 69 L (75-99) mg/dL Total Bilirubin (0.2-1.3) mg/dL AST (14-36) U/L ALT (4-34) U/L Total Protein (6.3-8.2) g/dL Albumin (3.5-5.0) g/dL Microbiology - Last 24 Hours (Table) 06/19/21 16:36 Blood Culture - Preliminary Blood No Growth after 96 hours 06/18/21 09:42 Blood Culture - Preliminary Blood No Growth after 120 hours 06/18/21 09:32 Blood Culture - Preliminary Blood No Growth after 120 hours Assessment and Plan Assessment: Altered mental status due to multifactorial: septic encephalopathy and component of toxic-metabolic encephalopathy ( --slight improvement (is more awake) High suspicious of seizure on 04/2021 (admission) and was transferred to [facility] for roasterman EEG and further work-up. Patient has underlying reported dementia Septic shock on levo (secondary due to gram-positive and staph epidermidis/coa gulase negative and the patient is on daptomycin) Acute kidney insufficiency--resolved Transaminitis--trending down Hypernatremia likely due to dehydration--improved Troponin leak History of recurrent urinary tract infection History of fall History of proximal atrial fibrillation currently on amiodarone. History of GI bleed Obesity Schizoaffective disorder Plan: * Continue Keppra IV 500mg every 12 hours for her seizure was suspected in April 2021 for now (she was on Depakote but on hold since has elevated LFT's and once stable will consider starting patient home medication of Depakote 500mg 1 tab bid (was being used for mood stabilizer and has antiepileptic effe ct as well). May consider switch to oral Keppra. * CT of the head from 06/22/2021 showed no acute process. The patient's son refused EEG and further testing since the he wanted to make the patient c omfort. Now since patient is more awake, waiting for the patient's son final input. * I.D. is on board. * Cardiology is on board. Patient has atrial fibrillation, currently on amiodarone. Suggest starting aspirin 81 mg or anticoagulation if no contraindications. I would defer decision to cardiology, IM, and critical care team. * We'll defer further work-up to the to the ICU in the primary team. * Per nurse report, patient has been made comfort care, DO NOT RESUSCITATE, DO NOT INTUBATE. No aggressive workup. No feeding tube. Possible transfer to her home very soon. * Neurology will sign off. Please reconsult neurology if any concerns.
--- NOTE | 2021-06-24 11:34 | PN ---
PROGRESS NOTE DATE OF SERVICE: 06/23/2021 REASON FOR FOLLOWUP: Aspiration pneumonia. INTERVAL HISTORY: The patient is afebrile. The patient is hemodynamically stable. The patient is currently on room air. She is breathing comfortably. No vomiting or diarrhea has been reported by the nursing staff. The patient herself was unable to provide any history. PHYSICAL EXAMINATION: Blood pressure 113/64 with a pulse of 71, temperature 98.2. She is 93% on room air. General description is a middle-aged female lying in bed in no distress. RESPIRATORY SYSTEM: Unlabored breathing. Coarse breath sounds at the bases. No wheeze. HEART: S1, S2. Regular rate and rhythm. ABDOMEN: Soft. No tenderness. LABS: BUN of 19, creatinine 0.79. Liver enzymes are elevated. Sputum has been usual respiratory tana. DIAGNOSTIC IMPRESSION AND PLAN: 1. Patient with possible aspiration pneumonia, currently covered with Zosyn. Transition to oral Augmentin for a short course on discharge. 2. Positive blood culture with Staph epi, likely contaminant. Repeat blood culture negative. MMODL / IJN: [id number] /
[2021-06-24 12:01] LABS: Glucose,Whole Blood 77 mg/dL (75-99)
--- NOTE | 2021-06-24 14:03 | PN ---
PROGRESS NOTE DATE OF SERVICE: 06/24/2021 REASON FOR FOLLOWUP: Aspiration pneumonia. INTERVAL HISTORY: The patient is currently afebrile. The patient is on room air. She is hemodynamically stable. No vomiting, diarrhea or any other changes reported by the nursing staff. The patient herself was unable to provide any history. PHYSICAL EXAMINATION: Blood pressure 120/79, pulse 75, temperature 97.9. She is 96% on room air. General description is description is an elderly female lying in bed in no distress. RESPIRATORY SYSTEM: Unlabored breathing. Decreased breath sounds at the bases. No wheeze. HEART: S1, S2. Regular rate and rhythm. ABDOMEN: Soft. No tenderness. LABS: No new labs have been obtained today. DIAGNOSTIC IMPRESSION AND PLAN: Patient with aspiration pneumonia, overall improvement on Zosyn. Culture negative for any resistant pathogen. She will finish therapy with oral Augmentin and close outpatient followup. Continue supportive care. MMODL / IJN: [id number] /
--- NOTE | 2021-06-24 16:50 | P.PN ---
Progress Note - Text Progress Note Date: 06/23/21 Chief Complaint: Decreased responsiveness History of presenting complaint: This is a 56-year-old patient, follows with Dr. Beltrán at the [facility]. Patient was recently admitted to the hospital in May 05 and transferred on May 10 2 [place] in [place].Admitted then UTI from cystitis with sepsis, bilateral pneumonia, septic shock, acute kidney injury with ATN.IV fluids. IV ceftriaxone. Admitted to the ICU. transfer out was done for continuous EEG monitoring. On this occasion patient is brought with unresponsiveness. hypotensive. Acute kidney injury. Some abnormal liver enzymes, UA was positive. Patient was negative for COVID-19. Patient was intubated and put on the mechanical ventilator. Has been getting IV fluid boluses. Has been in atrial fibrillation. Intubated Admitted with acute metabolic/toxic encephalopathy from sepsis, septic shock, pneumonia, acute kidney injury likely from ATN, atrial flutter fibrillation rate uncontrolled, metabolic acidosis. ICU drips include norepinephrine, propofol, OG tube feeding. She also had a GI bleed that was self-limited. There was stopped from this family about possible comfort care. On June 21 patient was extubated. Patient received IV Zosyn and vancomycin. Blood cultures failed to be a contaminant hence vancomycin/daptomycin was discontinued. Patient was started on Keppra by neurology. June 23: Laying in bed. Comfortable. 95% room air. Patient has declined a PEG tube. Nurse called the patient's son and the son said last the patient. Patient hasn't done too well with swallowing. Comfort feeding will be done. At this point patient is a DO NOT RESUSCITATE. Depending on clinical course son may decide about hospice. Per Dr. Brush from ID patient to be changed over to Augmentin. Dose of amiodarone cutback. line worker informed be that the patient was accepted at [facility]. Review of systems: Patient doesn't communicate much Current medications reviewed in the electronics Past medical history to include: Atrial fibrillation, bibasilar fibrotic lung changes with honeycombing, schizoaffective disorder, nicotine use, in February/2021 patient did have a left tibial plate to and left proximal fibular fracture Social history: [facility]. Smoker, until recently. Marijuana use history of Family history: Could not be obtained. Physical examination: VITAL SIGNS: 97.4, 70, 18, 96% on room air GENERAL: Laying in bed, tired, awake EYES: Pupils equal. Conjunctiva normal. HEENT: External appearance of nose and ears normal, oral cavity mucous membranes. NECK: JVD unable to assess; masses not palpable. HEART: First and second heart sounds are normal; no edema. LUNGS: Respiratory rate increased; decreased breath sounds ABDOMEN: Soft, nontender, liver spleen not palpable, no masses palpable. PSYCH: Following simple commands, and answers questions INVESTIGATIONS, reviewed in the clinical context: June 23: Potassium 3.6 creatinine 0.79 AST 210 ALT 208 June 22: chest x-ray: Bilateral opacities June 17: WBC 15.9 hemoglobin 11 platelets 142, sodium 149 potassium 3.2 (74 creatinine 2.90, bicarb 19 AST 592 ALT 481 Blood cultures growing: Coagulase negative staph WBC 18.4 hemoglobin 14.2 platelets 399, sodium 154 potassium 5.7 BUN 83 creatinine 3.65 lactic acid 5 AST 238 ALT 128 Troponin I 0.148, 0.4-3 EKG tracing personally reviewed by me-atrial flutter with 2 was 21 conduction Chest x-ray film personally reviewed by me-bilateral infiltrates/also some chronicity Previous testing: May 10: BUN 17 creatinine 0.93, AST/ALT both normal CT chest [02/24/2021] chronic parenchymal fibrotic changes greatest in the bases. With honeycombing. It is of groundglass opacities. 2-D echocardiogram: EF 55 have a 60%. [id number] tricuspid regurgitation. Some element of pulmonary hypertension Assessment and plan: -Acute/metabolic/toxic encephalopathy. From sepsis: Improving -pneumonia suspected gram-negative organism, patient has underlying also chronic fibrotic changes IV Zosyn-changed to Augmentin 875 twice a day for 7 more days -Positive blood cultures for coagulase-negative staph,-likely contamination IV daptomycin, discontinued -Acute hypoxic respiratory failure, multifactorial improving Status post ventilator assisted. Extubated June 21. No 96% on room air -Chronic bilateral pulmonary fibrosis with honeycombing Bronchodilators. -Septic shock: Recovered Was on IV levo fed. IV fluids -Questionable seizure on last admission patient was transferred to [place] in [place] for further workup. Neurology's request records from [facility]. IV Sanjuanita. Per Dr. Laws from neurology, patient's son does not want any further testing -Acute kidney injury, likely from ATN from sepsis: Corrected Admission creatinine 3.65. Patient's creatinine was 0.93 on May 10 -Metabolic and lactic acidosis from renal failure/sepsis: Improved Received IV bicarbonate drip -Paroxysmal atrial flutter-fibrillation, in sinus rhythm By mouth amiodarone. Eliquis . -Chronic pulmonary fibrosis especially at the bases with honeycombing -Schizoaffective disorder On Invega -COPD in a smoker DuoNeb. -Hypernatremia from free water deficit: Improved IV fluids. Follow sodium -Hyperkalemia from acute kidney injury: Improved Hydrate patient. -Likely acute ischemic hepatitis from hypotension: Improvement Follow-up LFTs. Patient continued on amiodarone per cardiology -Troponin leak from hemodynamic mismatch and sepsis. Not a clinical picture of acute coronary syndrome Been followed by cardiology -GI bleed. Possible stress gastritis. Stable PPI -DO NOT RESUSCITATE Patient's discharge was prepared. Later the ECF declined to accept the patient. Current medications to be continued.
--- NOTE | 2021-06-24 16:55 | P.PN ---
Progress Note - Text Progress Note Date: 06/24/21 Chief Complaint: Decreased responsiveness History of presenting complaint: This is a 56-year-old patient, follows with Dr. Beltrán at the [facility]. Patient was recently admitted to the hospital in May 05 and transferred on May 10 2 [facility] in [place].Admitted then UTI from cystitis with sepsis, bilateral pneumonia, septic shock, acute kidney injury with ATN.IV fluids. IV ceftriaxone. Admitted to the ICU. transfer out was done for continuous EEG monitoring. On this occasion patient is brought with unresponsiveness. hypotensive. Acute kidney injury. Some abnormal liver enzymes, UA was positive. Patient was negative for COVID-19. Patient was intubated and put on the mechanical ventilator. Has been getting IV fluid boluses. Has been in atrial fibrillation. Intubated Admitted with acute metabolic/toxic encephalopathy from sepsis, septic shock, pneumonia, acute kidney injury likely from ATN, atrial flutter fibrillation rate uncontrolled, metabolic acidosis. ICU drips include norepinephrine, propofol, OG tube feeding. She also had a GI bleed that was self-limited. There was stopped from this family about possible comfort care. On June 21 patient was extubated. Patient received IV Zosyn and vancomycin. Blood cultures failed to be a contaminant hence vancomycin/daptomycin was discontinued. Patient was started on Keppra by neurology. June 23: Laying in bed. Comfortable. 95% room air. Patient has declined a PEG tube. Nurse called the patient's son and the son said last the patient. Patient hasn't done too well with swallowing. Comfort feeding will be done. At this point patient is a DO NOT RESUSCITATE. Depending on clinical course son may decide about hospice. Per Dr. Brush from ID patient to be changed over to Augmentin. Dose of amiodarone cutback. pick and shovel worker informed be that the patient was accepted at [facility]. June 24: Laying in bed. Comfortable. Eating some with assistance. Patient did not: The [facility] yesterday. Admission was declined. land planner is a not able to reach the son. They're looking for a court-appointed guardian now. Patient antibiotics being changed to Augmentin. Amiodarone changed to 200 mg once daily. Change IV menstrual by mouth. Review of systems: Patient doesn't communicate much Active Medications Albuterol/Ipratropium (Ipratropium-Albuterol 3 Ml Neb) 3 ml INHALATION RT-TID [facility] Amiodarone HCl (Amiodarone 200 Mg Tab) 200 mg PO BID [facility] Stop: 06/24/21 23:59 Last Admin: 06/24/21 09:09 Dose: 200 mg Documented by: Amiodarone HCl (Amiodarone 200 Mg Tab) 200 mg PO DAILY [facility] Amoxicillin/Clavulanate Potassium (Amoxic-Pot Clav 875-125mg 1 Each Tab) 1 each PO Q12HR [facility] Insulin Aspart (Insulin Aspart (Novolog) 100 Unit/Ml Vial) 0 unit SQ Q6H [facility]; Protocol Last Admin: 06/24/21 12:15 Dose: Not Given Documented by: Levetiracetam (Levetiracetam 500 Mg Tab) 500 mg PO Q12HR [facility] Levothyroxine Sodium (Levothyroxine 50 Mcg Tab) 50 mcg PO DAILY@0630 [facility] Miscellaneous Information (Potassium Replacement Protocol 1 Each Misc) 1 each MISCELLANE DAILY PRN; Protocol PRN Reason: Per Protocol Naloxone HCl (Naloxone 0.4 Mg/Ml 1 Ml Vial) 0.2 mg IV Q2M PRN PRN Reason: Opioid Reversal Pantoprazole Sodium (Pantoprazole 40 Mg Tablet) 40 mg PO AC-BID [facility] Past medical history to include: Atrial fibrillation, bibasilar fibrotic lung changes with honeycombing, schizoaffective disorder, nicotine use, in February/2021 patient did have a left tibial plate to and left proximal fibular fracture Social history: ECF. Smoker, until recently. Marijuana use history of Family history: Could not be obtained. Physical examination: VITAL SIGNS: 97.9, 75, 21, 120 x 79, 96% room air GENERAL: Laying in bed, tired, awake EYES: Pupils equal. Conjunctiva normal. HEENT: External appearance of nose and ears normal, oral cavity mucous membranes. NECK: JVD unable to assess; masses not palpable. HEART: First and second heart sounds are normal; no edema. LUNGS: Respiratory rate increased; decreased breath sounds ABDOMEN: Soft, nontender, liver spleen not palpable, no masses palpable. PSYCH: Following simple commands, and answers questions INVESTIGATIONS, reviewed in the clinical context: June 24: Accu-Cheks 70, 77 June 23: Potassium 3.6 creatinine 0.79 AST 210 ALT 208 June 22: chest x-ray: Bilateral opacities June 17: WBC 15.9 hemoglobin 11 platelets 142, sodium 149 potassium 3.2 (74 creatinine 2.90, bicarb 19 AST 592 ALT 481 Blood cultures growing: Coagulase negative staph WBC 18.4 hemoglobin 14.2 platelets 399, sodium 154 potassium 5.7 BUN 83 creatinine 3.65 lactic acid 5 AST 238 ALT 128 Troponin I 0.148, 0.4-3 EKG tracing personally reviewed by me-atrial flutter with 2 was 21 conduction Chest x-ray film personally reviewed by me-bilateral infiltrates/also some chronicity Previous testing: May 10: BUN 17 creatinine 0.93, AST/ALT both normal CT chest [02/24/2021] chronic parenchymal fibrotic changes greatest in the bases. With honeycombing. It is of groundglass opacities. 2-D echocardiogram: EF 55 have a 60%. [id number] tricuspid regurgitation. Some element of pulmonary hypertension Assessment and plan: -Acute/metabolic/toxic encephalopathy. From sepsis: Better -pneumonia suspected gram-negative organism, patient has underlying also chronic fibrotic changes IV Zosyn-changed to Augmentin 875 twice a day for 7 more days -Positive blood cultures for coagulase-negative staph,-likely contamination IV daptomycin, discontinued -Acute hypoxic respiratory failure, multifactorial improving Status post ventilator assisted. Extubated June 21. on 96% on room air -Chronic bilateral pulmonary fibrosis with honeycombing Bronchodilators. -Septic shock: Recovered Was on IV levo fed. IV fluids -Questionable seizure on last admission patient was transferred to [facility] in [place] for further workup. Neurology's request records from [facility]. IV Keppra. Per Dr. Laws from neurology, patient's son does not want any further testing. Changed to by mouth Keppra -Acute kidney injury, likely from ATN from sepsis: Corrected Admission creatinine 3.65. Patient's creatinine was 0.93 on May 10 -Metabolic and lactic acidosis from renal failure/sepsis: Improved Received IV bicarbonate drip -Paroxysmal atrial flutter-fibrillation, in sinus rhythm By mouth amiodarone. Eliquis . -Chronic pulmonary fibrosis especially at the bases with honeycombing -Schizoaffective disorder On Invega -COPD in a smoker DuoNeb. -Hypernatremia from free water deficit: Improved IV fluids. Follow sodium -Hyperkalemia from acute kidney injury: Improved Hydrate patient. -Likely acute ischemic hepatitis from hypotension: Improvement Follow-up LFTs. Patient continued on amiodarone per cardiology -Troponin leak from hemodynamic mismatch and sepsis. Not a clinical picture of acute coronary syndrome Been followed by cardiology -GI bleed. Possible stress gastritis. Stable PPI -DO NOT RESUSCITATE Continue current treatment plan. pick and shovel worker looking into court-appointed guardian. Augmentin, Protonix, Keppra, changed to by mouth. IV antibiotics discontinued. Assisted one is to on feeding. Discussed with psychiatric social worker supervisor. Patient to be discharged when accepting facility available. Prognosis guarded.
[2021-06-24] MEDS: DEXTROSE 5%-0.45% NACL 1,000 ML IV SCH (17:49)
[2021-06-24] MEDS: PANTOPRAZOLE 40 MG TABLET PO SCH (17:50)
[2021-06-24] MEDS: NOREPINEPHRINE 32 MG in SODIUM CHLORIDE 0.9% 218 ML IV SCH (20:27)
[2021-06-24 20:40] LABS: Glucose,Whole Blood 108 mg/dL (75-99)
[2021-06-24] MEDS: levETIRAcetam 500 MG TAB PO SCH (20:56)
[2021-06-24] MEDS: AMOXIC-POT CLAV 875-125MG 1 EACH TAB PO SCH (20:56)
[2021-06-25 00:08] LABS: Glucose,Whole Blood 111 mg/dL (75-99)
[2021-06-25] MEDS: INSULIN ASPART (NovoLOG) 100 UNIT/ML VIAL SQ SCH ×3 (00:14→12:04)
[2021-06-25] MEDS: DEXTROSE 5%-0.45% NACL 1,000 ML IV SCH (05:43)
[2021-06-25 06:02] LABS: Glucose,Whole Blood 100 mg/dL (75-99)
[2021-06-25] MEDS ORDERED: LEVOTHYROXINE 50 MCG TAB PO SCH (06:30)
[2021-06-25] MEDS: levETIRAcetam 500 MG TAB PO SCH (07:23)
[2021-06-25] MEDS: AMOXIC-POT CLAV 875-125MG 1 EACH TAB PO SCH (07:23)
[2021-06-25] MEDS: PANTOPRAZOLE 40 MG TABLET PO SCH (07:23)
[2021-06-25 07:27] LABS: Glucose,Whole Blood 57 mg/dL (75-99)
[2021-06-25 07:55] LABS: ALT 301 U/L (4-34); AST 269 U/L (14-36); African American GFR (CKD) >90 (>60 ml/min/1.73 sqM); Albumin 2.5 g/dL (3.5-5.0); Albumin/Globulin Ratio 0.7; Alkaline Phosphatase 88 U/L (38-126); Anion Gap 9 mmol/L; Blood Urea Nitrogen 14 mg/dL (7-17); Carbon Dioxide 16 mmol/L (22-30); Chloride 125 mmol/L (98-107); Globulin 3.5 g/dL; Glucose 118 mg/dL (74-99); Non-African American GFR(CKD) >90 (>60 ml/min/1.73 sqM); Potassium 4.4 mmol/L (3.5-5.1); Sodium 150 mmol/L (137-145); Total Bilirubin 1.2 mg/dL (0.2-1.3)
[2021-06-25 08:16] LABS: Glucose,Whole Blood 117 mg/dL (75-99)
[2021-06-25] MEDS: IPRATROPIUM-ALBUTEROL 3 ML NEB INHALATION SCH ×2 (08:48→12:06)
[2021-06-25 08:53] LABS: Anisocytosis Slight; Hypochromasia Marked; MCH 36.2 pg (25.0-35.0); Macrocytosis Marked; Poikilocytosis Slight; RBC 2.74 m/uL (3.80-5.40); RDW 19.3 % (11.5-15.5); WBC 10.3 k/uL (3.8-10.6)
[2021-06-25] MEDS ORDERED: AMIODARONE 200 MG TAB PO SCH (09:00)
[2021-06-25 09:07] LABS: HGB 9.9 gm/dL (11.4-16.0); MCV 113.3 fL (80.0-100.0); Platelet Count 195 k/uL (150-450)
[2021-06-25 10:16] VITALS: BP 107/66; TEMP 98.6
[2021-06-25 11:57] LABS: Glucose,Whole Blood 133 mg/dL (75-99)
[2021-06-25 12:07] VITALS: RESP 18
[2021-06-25 12:16] VITALS: PULSE 80
--- NOTE | 2021-06-25 13:22 | P.DS ---
Providers Date of admission: 06/16/21 03:30 Attending physician: Perry [place] Consults: 06/16/21 03:30 Consult Physician Routine Consulting Provider: Mert Hebert Consult Reason/Comments: [id number] Do you want consulting provider notified?: Yes Consult Physician Routine Consulting Provider: Keo Mcintosh Consult Reason/Comments: icu Do you want consulting provider notified?: Yes Consult Physician Urgent Consulting Provider: Brianna Miranda Consult Reason/Comments: arf Do you want consulting provider notified?: Yes 06/16/21 13:32 Consult Physician Routine Consulting Provider: John Laws Consult Reason/Comments: Questionable seizures Do you want consulting provider notified?: Yes 06/18/21 09:17 Consult Physician Routine Consulting Provider: Nabil Ibarra Consult Reason/Comments: Bacteremia Do you want consulting provider notified?: Yes Primary care physician: [facility] Hospital Course: History of presenting complaint: This is a 56-year-old patient, follows with Dr. Beltrán at the [facility]. Patient was recently admitted to the hospital in May 05 and transferred on May 10 2 [facility] in [place].Admitted then UTI from cystitis with sepsis, bilateral pneumonia, septic shock, acute kidney injury with ATN.IV fluids. IV ceftriaxone. Admitted to the ICU. transfer out was done for continuous EEG monitoring. On this occasion patient is brought with unresponsiveness. hypotensive. Acute kidney injury. Some abnormal liver enzymes, UA was positive. Patient was negative for COVID-19. Patient was intubated and put on the mechanical ventilator. Has been getting IV fluid boluses. Has been in atrial fibrillation. Intubated Admitted with acute metabolic/toxic encephalopathy from sepsis, septic shock, pneumonia, acute kidney injury likely from ATN, atrial flutter fibrillation rate uncontrolled, metabolic acidosis. ICU drips include norepinephrine, propofol, OG tube feeding. She also had a GI bleed that was self-limited. There was stopped from this family about possible comfort care. On June 21 patient was extubated. Patient received IV Zosyn and vancomycin. Blood cultures failed to be a contaminant hence vancomycin/daptomycin was discontinued. Patient was started on Keppra by neurology. Today: Laying in bed. Comfortable. 95% room air. Patient has declined a PEG tube. Nurse called the patient's son and the son said last the patient. Janet ent hasn't done too well with swallowing. Comfort feeding will be done. At this point patient is a DO NOT RESUSCITATE. Depending on clinical course son may decide about hospice. Per Dr. Brush from ID patient to be changed over to Augmentin. Dose of amiodarone cutback. Discussion and discharge planning more than 35 minutes 06/25/2021 Patient was evaluated the bedside, she was resting and was arousable however did not answer any questions. A review of systems is difficult to obtain today. Issues generalized edematous per RN states this is stable. She has had a fecal management system in place with stools evident. If she is retaining urine, she was straight cathed 2 throughout the evening and she is still retaining replacing indwelling catheter for discharge and she can follow up with urology. Patient has a hearing pending for guardianship as her son was unable to make decisions regarding her care ongoing. She is now a DO NOT RESUSCITATE and she cannot comfort feeds as well as pureed Diet. She will maintain one-to-one feedings for an aspiration precaution. Encourage hydration we will repeat a comprehensive metabolic panel and a complete blood count in 2-3 days. She does follow-up with Dr. Beltrán. Vital signs remained stable today, blood pressure is 107/66, she is afebrile, heart rate 80 is normal sinus rhythm. Her stools do appear darker in color however, there is no evident signs of bright red bleeding, hemoglobin is trending upwards of 9.9 today, oxyhydrogen welder is not recommending any anticoagulation due to the recent history of GI bleeding however neurology would like the patient a baby aspirin daily. We feel this may be appropriate today as her hemoglobin is trending upwards. Please monitor closely for any signs of acute bleeding. Consultation: Dr. Mcintosh partners from utilization engineer Dr. Ibarra from ID Dr. Garza and partners from nephrology [facility] Past medical history to include: Atrial fibrillation, bibasilar fibrotic lung changes with honeycombing, schizoaffective disorder, nicotine use, in February/2021 patient did have a left tibial plate to and left proximal fibular fracture Social history: ECF. Smoker, until recently. Marijuana use history of Family history: Could not be obtained. Physical examination: VITAL SIGNS: 97.4, 70, 18, 96% on room air GENERAL: Laying in bed, tired, awake EYES: Pupils equal. Conjunctiva normal. HEENT: External appearance of nose and ears normal, oral cavity mucous membranes. NECK: JVD unable to assess; masses not palpable. HEART: First and second heart sounds are normal; no edema. LUNGS: Respiratory rate increased; decreased breath sounds ABDOMEN: Soft, nontender, liver spleen not palpable, no masses palpable. There is a fecal management system present with liquid stool, dark brown in color PSYCH: Following simple commands, does nod to yes or no questions, does not verbally respond INVESTIGATIONS, reviewed in the clinical context: June 25: Potassium 4.4, sodium 150, BUN 14, creatinine 0.74, AST 269, ALT 301 --- we will repeat these in 2-3 days June 23: Potassium 3.6 creatinine 0.79 AST 210 ALT 208 June 22: chest x-ray: Bilateral opacities June 17: WBC 15.9 hemoglobin 11 platelets 142, sodium 149 potassium 3.2 (74 creatinine 2.90, bicarb 19 AST 592 ALT 481 Blood cultures growing: Coagulase negative staph WBC 18.4 hemoglobin 14.2 platelets 399, sodium 154 potassium 5.7 BUN 83 creatinine 3.65 lactic acid 5 AST 238 ALT 128 Troponin I 0.148, 0.4-3 EKG tracing personally reviewed by me-atrial flutter with 2 was 21 conduction Chest x-ray film personally reviewed by me-bilateral infiltrates/also some chronicity Brain CT (06/22/2021) - cerebral atrophy, no acute intracranial abnormality. Previous testing: May 10: BUN 17 creatinine 0.93, AST/ALT both normal CT chest [02/24/2021] chronic parenchymal fibrotic changes greatest in the bases. With honeycombing. It is of groundglass opacities. 2-D echocardiogram: EF 55 have a 60%. [id number] tricuspid regurgitation. Some element of pulmonary hypertension Assessment and plan: -Acute/metabolic/toxic encephalopathy. From sepsis: Improving -pneumonia suspected gram-negative organism, patient has underlying also chronic fibrotic changes IV Zosyn-changed to Augmentin 875 twice a day for 7 more days -Positive blood cultures for coagulase-negative staph,-likely contamination IV daptomycin, discontinued Repeat blood cultures negative 3 -Acute hypoxic respiratory failure, multifactorial improving Status post ventilator assisted. Extubated June 21. Now 96% on room air -Chronic bilateral pulmonary fibrosis with honeycombing Bronchodilators. -Septic shock: Recovered Was on IV levo fed. IV fluids Blood pressure on 06/25/2021 -- 107/66 -Questionable seizure on last admission patient was transferred to [facility] in [place] for further workup. Neurology's request records from [facility]. IV Keppra. Per Dr. Laws from neurology, patient's son does not want any further testing Discharged on by mouth Keppra -Acute kidney injury, likely from ATN from sepsis: Corrected Admission creatinine 3.65. Patient's creatinine was 0.93 on May [id number] creatinine is 0.74 -Metabolic and lactic acidosis from renal failure/sepsis: Improved Received IV bicarbonate drip -Paroxysmal atrial flutter-fibrillation, in sinus rhythm By mouth amiodarone. eliquis deferred due to decreased hemoglobin, check in 3 days and f/u with PCP We will have patient on baby aspirin daily -Chronic pulmonary fibrosis especially at the bases with honeycombing -Schizoaffective disorder On Invega -COPD in a smoker Manfred. -Hypernatremia from free water deficit: Improved IV fluids. Follow sodium -Hyperkalemia from acute kidney injury: Improved Hydrate patient. -Likely acute ischemic hepatitis from hypotension: Improvement Follow-up LFTs. Patient continued on amiodarone per cardiology -Troponin leak from hemodynamic mismatch and sepsis. Not a clinical picture of acute coronary syndrome Been followed by cardiology -GI bleed. Possible stress gastritis. Stable PPI -DO NOT RESUSCITATE Disposition: ECF/[facility] today Feeding: Comfort feeding with aspiration precautions, 1:1 Labs: CBC CMP: 3 days - Scripts given Patient Condition at Discharge: Fair Plan - Discharge Summary New Discharge Prescriptions: New levETIRAcetam [Keppra] 500 mg PO BID #1 tab Amoxicillin/Potassium Clav [Augmentin 875-125 Tablet] 1 tab PO Q12HR #14 tab Amiodarone [Cordarone] 200 mg PO DAILY #1 tab Ipratropium-Albuterol Nebulize [Duoneb 0.5 mg-3 mg/3 ml Soln] 3 ml INHALATION TID ml Continue DULoxetine HCL [Cymbalta] 30 mg PO DAILY 30 Days capsule. Albuterol Inhaler [Ventolin Hfa Inhaler] 2 puff INHALATION RT-Q4H PRN PRN Reason: Shortness Of Breath Or Wheezing Aspirin 81 mg PO DAILY #30 chew Melatonin 3 mg PO HS PRN PRN Reason: Insomnia Levothyroxine Sodium [Synthroid] 50 mcg PO DAILY@0500 Folic Acid 1 mg PO DAILY Changed Pantoprazole [Protonix] 40 mg PO BID #0 Discontinued Heparin Sodium,Porcine [Heparin Sodium] 5,000 unit SQ Q8HR Potassium Chloride [Klor-Con 20] 40 meq PO DAILY Ibuprofen [Motrin Ib] 200 mg PO Q6H PRN PRN Reason: Pain Donepezil [Aricept] 5 mg PO DAILY Discharge Medication List DULoxetine HCL [Cymbalta] 30 mg PO DAILY 30 Days capsule. 08/13/20 [Rx] Albuterol Inhaler [Ventolin Hfa Inhaler] 2 puff INHALATION RT-Q4H PRN 02/21/21 [History] Aspirin 81 mg PO DAILY #30 chew 02/25/21 [Rx] Folic Acid 1 mg PO DAILY 06/16/21 [History] Levothyroxine Sodium [Synthroid] 50 mcg PO DAILY@0500 06/16/21 [History] Melatonin 3 mg PO HS PRN 06/16/21 [History] Amiodarone [Cordarone] 200 mg PO DAILY #1 tab 06/23/21 [Rx] Amoxicillin/Potassium Clav [Augmentin 875-125 Tablet] 1 tab PO Q12HR #14 tab [Rx] Ipratropium-Albuterol Nebulize [Duoneb 0.5 mg-3 mg/3 ml Soln] 3 ml INHALATION TID ml 06/23/21 [Rx] Pantoprazole [Protonix] 40 mg PO BID #0 06/23/21 [Rx] levETIRAcetam [Keppra] 500 mg PO BID #1 tab 06/23/21 [Rx] Follow up Appointment(s)/Referral(s): Mike Shrestha MD [STAFF PHYSICIAN] - 1 Week Markie Beltrán DO [Primary Care Provider] - 1-2 days Ambulatory/Diagnostic Orders: Complete Blood Count w/diff [LAB.AMB] Time Frame: 2 Days, Location: None Selected Comprehensive Metabolic Panel [LAB.AMB] Time Frame: 2 Days, Location: None Selected Activity/Diet/Wound Care/Special Instructions: Comfort feeds, pureed diet, pudding thickened liquids, 1:1 supervision. Aspiration precautions, to follow with speech therapy Discharge Disposition: TRANSFER TO SNF/ECF
[2021-06-25 15:06] LABS: Lymphocytes # (M) 1.96 k/uL (1.0-4.8); Monocytes # (M) 1.03 k/uL (0-1.0); Neutrophils # (M) 7.31 k/uL (1.3-7.7); Neutrophils % (M) 71 %; Nucleated Red Blood Cells 0 /100 WBC (0-0); Total Cells Counted 100
--- NOTE | 2021-06-25 15:10 | PN ---
PROGRESS NOTE DATE OF SERVICE: 06/25/2021 REASON FOR FOLLOWUP: Aspiration pneumonia. INTERVAL HISTORY: Patient is afebrile. The patient is currently breathing comfortably on 1 L nasal cannula. The patient remains to be normal. Did not have history of vomiting or diarrhea reported by nursing staff. PHYSICAL EXAMINATION: Blood pressure is 107/66, pulse of 74, temperature 98.3. He is 94% on room air. General description is an in this middle-aged female lying in bed in no distress. Respiratory system unlabored breathing, decreased breath sounds in the base, with no wheeze. Heart S1, S2. Regular rhythm. Abdomen soft. LABS: Hemoglobin 9.1, white count 10.3, BUN of 14, creatinine 0.74. DIAGNOSTIC IMPRESSION AND PLAN: 1. Patient with a component of aspiration pneumonia. Sputum has been resistant pathogen on oral Augmentin. 2. Positive blood culture likely contamination. No need for any further therapy. Continue on the same thing. MMODL / IJN: [id number] /
--- NOTE | 2021-06-26 11:38 | CDI ---
Documentation Clarification Form Date: 06/26/2021 11:17:18 AM From: Makayla Pan CCS, CCDS Admit Date: 06/16/2021 03:30:00 AM Patient Name: Alva Angel Visit Number: [id number] Discharge Date: 06/25/2021 03:25:00 PM ATTENTION: The Clinical Documentation Specialists (CDI) and [facility] Coding Staff appreciate your assistance in clarifying documentation. Please respond to the clarification below the line at the bottom and electronically sign. The CDI & [facility] Coding staff will review the response and follow-up if needed. Please note: Queries are made part of the Legal Health Record. If you have any questions, please contact the author of this message via ITS. Dr. Santino James: This patient is diagnosed with Sepsis and Severe Sepsis with Septic Shock with positive Sputum and Blood Cultures. Additional clarification regarding the type of Sepsis based on the clinical indicators is requested. History/Risk Factors per the 06/16 H/P: Atrial Fibrillation, Bibasilar fibrotic lung changes with honeycombing, Schizoaffective disorder, Nicotine use. Clinical Indicators: Presented to the ED on 06/16 via EMS with Altered mental status, SOB, Confusion, decreased responsiveness and weakness. ED Clinical Impression: Dehydration, Sepsis, Weakness, UTI, Elevated Troponin, Delirium due to general medical condition, Atrial Fibrillation w/RVR, MOOKIE, Acute Pulmonary Edema and Fever. 06/16 VS: T 102.2, P 153, R 28 (sob, labored), BP 64/38, PO 89 15Lnrb, BMI: 36.6 06/16 LAB: WBC 18.4, Neut 15.5, Lactic Acid 5.0, Troponin 0.423, CRP 1.0, Total Protein 9.9 Cultures: 06/16 Sputum Cx (Final): Aracely sp, not albicans/galbr 06/16 Blood Cx (Final): negative x2 06/16 Blood Cx (Final): Coagulase Negative Staph x2 06/18 Blood Cx (Final): negative x2 06/19 Sputum Cx (Final): negative 06/19 Blood Cx (Final): negative Per the 06/16 Pulmonary Progress Note and subsequent PNs: Earlier sputum culture showed positive Aracely. Aracely sp,not albicans/galbr. Also, the patient has Aracely in the sputum and the rest or secretions are quite copious. Per the 06/17 Attending Progress Note and subsequent PNs: Positive blood cultures for coagulase-negative staph, possibility of contamination. Continue with Vancomycin. Treatment 06/16: IV Levaquin 100 mls/hr x1, IV Zosyn 200 mls/hr x1, IV Na Cl 2,000 mls @ 999 mls/hr q2H, IV Zosyn/Tazobactam 100 mls @ 25 mls/hr q12H 06/17: IV Vancomycin 500 mls @ 167 mls/hr x1, IV Levaquin 150 mls @ 100 mls/hr q24H 06/18: IV Fluconazole/Na Cl 100 mls @ 100 mls/hr Daily In your professional opinion, please clarify the type of Sepsis the patient was being treated for: [ ] Sepsis due to: [ ] Candidal [ ] Gram Negative Bacteria, please specify: [ ] Other Organism, please specify: [ ] Other, please specify [ x ] Unable to determine (Template Last Reviewed: October 2020) MTDD
== END 2021-06-25 15:25 | DRG 870 ==
LOC: EC 01:29 → 2SICU 03:30 → 4SSUR 06-24 18:18
PROVIDERS: ADMIT Hospitalist; ATTEND Hospitalist
PROC: 5A1955Z Respiratory Ventilation, Greater than 96 Consecutive Hours (ICD-10-PCS; principal; 2021-06-16)
PROC: 0BH17EZ Insertion of Endotracheal Airway into Trachea, Via Natural or Artificial Opening (ICD-10-PCS; 2021-06-16)
PROC: 0DH67UZ Insertion of Feeding Device into Stomach, Via Natural or Artificial Opening (ICD-10-PCS; 2021-06-16)
PROC: 04HY32Z Insertion of Monitoring Device into Lower Artery, Percutaneous Approach (ICD-10-PCS; 2021-06-16)
PROC: 4A133B1 Monitoring of Arterial Pressure, Peripheral, Percutaneous Approach (ICD-10-PCS; 2021-06-16)
PROC: 4A133J1 Monitoring of Arterial Pulse, Peripheral, Percutaneous Approach (ICD-10-PCS; 2021-06-16)
PROC: 02HV33Z Insertion of Infusion Device into Superior Vena Cava, Percutaneous Approach (ICD-10-PCS; 2021-06-16)
PROC: 5A09357 Assistance with Respiratory Ventilation, Less than 24 Consecutive Hours, Continuous Positive Airway Pressure (ICD-10-PCS; 2021-06-21)
DX: A41.9 Sepsis, unspecified organism (principal); G93.41 Metabolic encephalopathy; J69.0 Pneumonitis due to inhalation of food and vomit; J96.01 Acute respiratory failure with hypoxia; K72.00 Acute and subacute hepatic failure without coma; N17.0 Acute kidney failure with tubular necrosis; R65.21 Severe sepsis with septic shock; G92.8 Other toxic encephalopathy; E87.0 Hyperosmolality and hypernatremia; E87.2 Acidosis; F05 Delirium due to known physiological condition; I48.92 Unspecified atrial flutter; K92.2 Gastrointestinal hemorrhage, unspecified; N17.9 Acute kidney failure, unspecified; J90 Pleural effusion, not elsewhere classified; J44.0 Chronic obstructive pulmonary disease with (acute) lower respiratory infection; Z20.822 Contact with and (suspected) exposure to COVID-19; E83.52 Hypercalcemia; E03.9 Hypothyroidism, unspecified; E66.9 Obesity, unspecified; E86.0 Dehydration; E87.5 Hyperkalemia; E87.6 Hypokalemia; F03.90 Unspecified dementia, unspecified severity, without behavioral disturbance, psychotic disturbance, mood disturbance, and anxiety; F10.10 Alcohol abuse, uncomplicated; F17.200 Nicotine dependence, unspecified, uncomplicated; F25.9 Schizoaffective disorder, unspecified; G40.909 Epilepsy, unspecified, not intractable, without status epilepticus; I27.20 Pulmonary hypertension, unspecified; I48.0 Paroxysmal atrial fibrillation; Z66 Do not resuscitate; Z79.01 Long term (current) use of anticoagulants; Z79.890 Hormone replacement therapy; Z79.899 Other long term (current) drug therapy; Z87.440 Personal history of urinary (tract) infections; Z90.721 Acquired absence of ovaries, unilateral; Z91.81 History of falling; Z95.2 Presence of prosthetic heart valve; Z68.37 Body mass index [BMI] 37.0-37.9, adult; J84.10 Pulmonary fibrosis, unspecified
CPT/HCPCS: 36415; 36600; 70450; 71045; 76770; 80048; 80053; 80202; 81001; 82140; 82553; 82805; 83605; 83735; 84100; 84132; 84145; 84484; 85025; 85027; 85610; 85730; 86140; 87040; 87070; 87205; 87635; 93005; 93306; 94002; 94003; 94640

== ENCOUNTER 2021-06-29 06:42 | Inpatient (IN) | payer BC ==
[2021-06-29] MEDS ORDERED: FUROSEMIDE 10 MG/ML 4 ML VIAL IV STA (07:18)
--- NOTE | 2021-06-29 07:21 | ED ---
General Adult HPI - General Chief complaint: Shortness of Breath Stated complaint: ABBEY Time Seen by Provider: 06/29/21 07:00 Source: patient, EMS, RN notes reviewed, old records reviewed Mode of arrival: EMS Limitations: no limitations - History of Present Illness Initial comments: Patient is a 56-year-old female presenting to the emergency department from care facility for difficulty breathing. Patient reportedly was recently in the hospital for similar problems, possibly CHF. Patient is nonverbal and provides no information. - Related Data Home Medications Medication Instructions Recorded Confirmed Albuterol Inhaler [Ventolin Hfa 2 puff INHALATION RT-Q4H PRN 02/21/21 06/29/21 Inhaler] Folic Acid 1 mg PO DAILY 06/16/21 06/29/21 Levothyroxine Sodium [Synthroid] 50 mcg PO DAILY@0500 06/16/21 06/29/21 Melatonin 3 mg PO HS PRN 06/16/21 06/29/21 Ipratropium-Albuterol Nebulize 3 ml INHALATION RT-TID PRN 06/29/21 06/29/21 [Duoneb 0.5 mg-3 mg/3 ml Soln] Previous Rx's Medication Instructions Recorded DULoxetine HCL [Cymbalta] 30 mg PO DAILY 30 Days capsule. 08/13/20 Aspirin 81 mg PO DAILY #30 chew 02/25/21 Amiodarone [Cordarone] 200 mg PO DAILY #1 tab 06/23/21 Amoxicillin/Potassium Clav 1 tab PO Q12HR #14 tab 06/23/21 [Augmentin 875-125 Tablet] Pantoprazole [Protonix] 40 mg PO BID #0 06/23/21 levETIRAcetam [Keppra] 500 mg PO BID #1 tab 06/23/21 Allergies Allergy/AdvReac Type Severity Reaction Status Date / Time acetaminophen [From Vicodin] Allergy Rash/Hives Verified 06/29/21 08:22 hydrocodone [From Vicodin] Allergy Rash/Hives Verified 06/29/21 08:22 Review of Systems ROS Statement: Those systems with pertinent positive or pertinent negative responses have been documented in the HPI. ROS Other: All systems not noted in ROS Statement are negative. Limitations: ROS unobtainable due to patients medical condition Respiratory: Reports: as per HPI, dyspnea Past Medical History Past Medical History: Dementia Additional Past Medical History / Comment(s): UTI, Left tibial fx, History of Any Multi-Drug Resistant Organisms: None Reported Past Surgical History: Cardiac Valve Replacement Additional Past Surgical History / Comment(s): left ovary removed Past Anesthesia/Blood Transfusion Reactions: No Reported Reaction Past Psychological History: Schizoaffective Disorder, Schizophrenia Smoking Status: Current every day smoker Past Alcohol Use History: None Reported Past Drug Use History: None Reported - Past Family History Mother History Unknown: Yes Father History Unknown: Yes General Exam Limitations: no limitations General appearance: alert, other (Anasarca) Head exam: Present: normocephalic Eye exam: Present: normal appearance Neck exam: Present: normal inspection Respiratory exam: Present: rales Cardiovascular Exam: Present: regular rate, normal rhythm GI/Abdominal exam: Present: soft. Absent: tenderness Extremities exam: Present: pedal edema Neurological exam: Present: alert Psychiatric exam: Present: flat affect Skin exam: Present: normal color Course Vital Signs 06/29/21 06:49 Temperature 98.1 F Pulse Rate 86 Respiratory 18 Rate Blood Pressure 115/79 O2 Sat by Pulse 94 L Oximetry - Reevaluation(s) Reevaluation #1: 06/29/21 07:54 Unable to pass guidewire bilateral femoral vein. Nursing staff was able to obtain peripheral access following this. EKG Findings - EKG Comments: EKG Findings:: Normal sinus rhythm with a rate of 84. AR 150. QRS 80. QT 414. QTC 49. Normal axis. LVH criteria. Q wave in V1 and V2. No acute ST change. Procedures - Central Line Placement Right Femoral Consent Obtained: emergent situation Patient Placed on Monitor/Pulse Ox: Yes MD Prep: mask, gown, gloves Central Line Prep: Chlorhexidine scrub Local Anesthesia Used: Lidocaine 1% Ultrasound Used for Placement: No Complications: other (Unable to pass a guidewire secondary to stenosis) Left Femoral Consent Obtained: emergent situation Patient Placed on Monitor/Pulse Ox: Yes MD Prep: mask, gown, gloves Central Line Prep: Chlorhexidine scrub Ultrasound Used for Placement: No Complications: other (Unable to pass guidewire secondary to stenosis.) Medical Decision Making - Medical Decision Making Patient reevaluated and resting comfortably in bed. Vital signs stable. Clini viky I do have more concern for congestive heart failure over pneumonia. Patient will be started on antibiotics for potential pneumonia. Cardiology will be consulted. Case was discussed with Dr. guevara, covering for Dr. Rock, who admits covering for Dr. Beltrán. - Lab Data Result diagrams: 06/29/21 07:58 06/29/21 07:58 Lab Results 06/29/21 06/29/21 06/29/21 Range/Units 07:58 07:58 07:58 WBC 16.6 H (3.8-10.6) k/uL RBC 2.66 L (3.80-5.40) m/uL Hgb 9.4 L (11.4-16.0) gm/dL Hct 29.1 L (34.0-46.0) % MCV 109.2 H (80.0-100.0) fL MCH 35.4 H (25.0-35.0) pg MCHC 32.4 (31.0-37.0) g/dL RDW 19.7 H (11.5-15.5) % Plt Count 254 (150-450) k/uL MPV 7.4 Neutrophils % 90 % Lymphocytes % 7 % Monocytes % 2 % Eosinophils % 0 % Basophils % 0 % Neutrophils # 15.0 H (1.3-7.7) k/uL Lymphocytes # 1.2 (1.0-4.8) k/uL Monocytes # 0.3 (0-1.0) k/uL Eosinophils # 0.0 (0-0.7) k/uL Basophils # 0.0 (0-0.2) k/uL Manual Slide Review Performed Hypochromasia Slight Poikilocytosis Moderate Anisocytosis Slight Macrocytosis Marked A PT 13.3 H (9.0-12.0) sec INR 1.3 H (<1.2) APTT 18.1 L (22.0-30.0) sec Sodium 145 (137-145) mmol/L Potassium 3.3 L (3.5-5.1) mmol/L Chloride 116 H (98-107) mmol/L Carbon Dioxide 21 L (22-30) mmol/L Anion Gap 8 mmol/L BUN 11 (7-17) mg/dL Creatinine 0.75 (0.52-1.04) mg/dL Est GFR (CKD-EPI)AfAm >90 (>60 ml/min/1.73 sqM) Est GFR (CKD-EPI)NonAf 89 (>60 ml/min/1.73 sqM) Glucose 113 H (74-99) mg/dL Plasma Lactic Acid Grant (0.7-2.0) mmol/L Calcium 8.9 (8.4-10.2) mg/dL Total Bilirubin 1.2 (0.2-1.3) mg/dL AST 64 H (14-36) U/L ALT 135 H (4-34) U/L Alkaline Phosphatase 89 (38-126) U/L Troponin I (0.000-0.034) ng/mL NT-Pro-B Natriuret Pep pg/mL Total Protein 6.4 (6.3-8.2) g/dL Albumin 2.7 L (3.5-5.0) g/dL 06/29/21 06/29/21 06/29/21 Range/Units 07:58 07:58 07:58 WBC (3.8-10.6) k/uL RBC (3.80-5.40) m/uL Hgb (11.4-16.0) gm/dL Hct (34.0-46.0) % MCV (80.0-100.0) fL MCH (25.0-35.0) pg MCHC (31.0-37.0) g/dL RDW (11.5-15.5) % Plt Count (150-450) k/uL MPV Neutrophils % % Lymphocytes % % Monocytes % % Eosinophils % % Basophils % % Neutrophils # (1.3-7.7) k/uL Lymphocytes # (1.0-4.8) k/uL Monocytes # (0-1.0) k/uL Eosinophils # (0-0.7) k/uL Basophils # (0-0.2) k/uL Manual Slide Review Hypochromasia Poikilocytosis Anisocytosis Macrocytosis PT (9.0-12.0) sec INR (<1.2) APTT (22.0-30.0) sec Sodium (137-145) mmol/L Potassium (3.5-5.1) mmol/L Chloride (98-107) mmol/L Carbon Dioxide (22-30) mmol/L Anion Gap mmol/L BUN (7-17) mg/dL Creatinine (0.52-1.04) mg/dL Est GFR (CKD-EPI)AfAm (>60 ml/min/1.73 sqM) Est GFR (CKD-EPI)NonAf (>60 ml/min/1.73 sqM) Glucose (74-99) mg/dL Plasma Lactic Acid Grant 1.3 (0.7-2.0) mmol/L Calcium (8.4-10.2) mg/dL Total Bilirubin (0.2-1.3) mg/dL AST (14-36) U/L ALT (4-34) U/L Alkaline Phosphatase (38-126) U/L Troponin I <0.012 (0.000-0.034) ng/mL NT-Pro-B Natriuret Pep 2510 pg/mL Total Protein (6.3-8.2) g/dL Albumin (3.5-5.0) g/dL - Radiology Data Radiology results: report reviewed (Chest x-ray shows pulmonary edema versus infiltrate) Disposition Clinical Impression: Congestive heart failure Disposition: ADMITTED IP TO THIS HOSP Is patient prescribed a controlled substance at d/c from ED?: No Referrals: Markie Beltrán DO [Primary Care Provider] - 1-2 days Decision Time: 09:54
[2021-06-29 08:11] LABS: Anisocytosis Slight; Basophils % (A) 0 %; Eosinophils % (A) 0 %; HCT 29.1 % (34.0-46.0); HGB 9.4 gm/dL (11.4-16.0); Hypochromasia Slight; Lymphocytes # (A) 1.2 k/uL (1.0-4.8); Lymphocytes % (A) 7 %; MCH 35.4 pg (25.0-35.0); MCHC 32.4 g/dL (31.0-37.0); MCV 109.2 fL (80.0-100.0); Macrocytosis Marked; Mean Platelet Volume 7.4; Monocytes # (A) 0.3 k/uL (0-1.0); Monocytes % (A) 2 %; Neutrophils % (A) 90 %; Platelet Count 254 k/uL (150-450); Poikilocytosis Moderate; RBC 2.66 m/uL (3.80-5.40); RDW 19.7 % (11.5-15.5); WBC 16.6 k/uL (3.8-10.6)
[2021-06-29 08:22] LABS: ALT 135 U/L (4-34); African American GFR (CKD) >90 (>60 ml/min/1.73 sqM); Anion Gap 8 mmol/L; Blood Urea Nitrogen 11 mg/dL (7-17); Calcium 8.9 mg/dL (8.4-10.2); Carbon Dioxide 21 mmol/L (22-30); Chloride 116 mmol/L (98-107); Glucose 113 mg/dL (74-99); Non-African American GFR(CKD) 89 (>60 ml/min/1.73 sqM); Sodium 145 mmol/L (137-145); Total Bilirubin 1.2 mg/dL (0.2-1.3)
[2021-06-29 08:23] LABS: Albumin 2.7 g/dL (3.5-5.0); Potassium 3.3 mmol/L (3.5-5.1); Total Protein 6.4 g/dL (6.3-8.2)
[2021-06-29 08:24] LABS: AST 64 U/L (14-36); Alkaline Phosphatase 89 U/L (38-126)
[2021-06-29 08:39] LABS: INR 1.3 (<1.2); Prothrombin Time 13.3 sec (9.0-12.0)
[2021-06-29 08:59] LABS: Partial Thromboplastin Time 18.1 sec (22.0-30.0)
--- NOTE | 2021-06-29 09:02 | XR ---
EXAMINATION TYPE: XR chest 1V portable DATE OF EXAM: 06/29/2021 COMPARISON: Chest x-ray 06/22/2021 HISTORY: Difficulty breathing TECHNIQUE: Single frontal view of the chest is obtained. FINDINGS: Patchy density, prominence of interstitium is present bilaterally. Central venous catheter has been removed. There is no pneumothorax or pleural effusion. Aorta is dense. Cardiac mediastinal silhouette is stable. IMPRESSION: Interstitial lung disease, correlate for possible pneumonia, edema
[2021-06-29] MEDS ORDERED: ASPIRIN 325 MG TAB PO STA (09:55)
[2021-06-29] MEDS ORDERED: PIPERACILLIN-TAZOBACTAM 3.375 GM in SODIUM CHLORIDE 0.9% 100 ML IVPB STA (09:55)
[2021-06-29] MEDS: FUROSEMIDE 10 MG/ML 4 ML VIAL IV SCH ×2 (10:23→18:05)
[2021-06-29 10:24] LABS: Amorphous Sediment,Urine Rare /hpf; Appearance,Urine Clear (Clear); Bilirubin,Urine Negative (Negative); Blood,Urine Small (Negative); Color,Urine Yellow; Glucose,Urine (UA) Negative (Negative); Hyaline Casts,Urine 15 /lpf (0-2); Ketones,Urine Negative (Negative); Leukocyte Esterase,Urine Negative (Negative); Mucus,Urine Moderate /hpf; Nitrite,Urine Negative (Negative); Protein,Urine 1+ (Negative); RBC,Urine 5 /hpf (0-5); Squamous Epithelial Cell,Urine 1 /hpf (0-4); Urobilinogen,Urine <2.0 mg/dL (<2.0); WBC,Urine 6 /hpf (0-5)
[2021-06-29] MEDS: PIPERACILLIN-TAZOBACTAM 3.375 GM in SODIUM CHLORIDE 0.9% 100 ML IVPB SCH (18:05)
[2021-06-29] MEDS ORDERED: MELATONIN 3 MG TABLET PO PRN (21:07)
[2021-06-29] MEDS: levETIRAcetam 500 MG TAB PO SCH (22:25)
[2021-06-30] MEDS: FUROSEMIDE 10 MG/ML 4 ML VIAL IV SCH ×3 (02:07→19:14)
[2021-06-30] MEDS: PIPERACILLIN-TAZOBACTAM 3.375 GM in SODIUM CHLORIDE 0.9% 100 ML IVPB SCH ×3 (02:07→20:45)
[2021-06-30] MEDS ORDERED: LEVOTHYROXINE 50 MCG TAB PO SCH (06:30)
[2021-06-30] MEDS ORDERED: PANTOPRAZOLE 40 MG TABLET PO SCH (07:30)
--- NOTE | 2021-06-30 08:30 | P.HPIM ---
History of Present Illness This is a pleasant 56 years old female with past medical history of advanced dementia and schizophrenia, seizure, , History of recurrent UTI, history of fall, paroxysmal atrial fibrillation on amiodarone, history of GI bleed, obesity Was recently discharged from the hospital for septic shock. Patient is poor historian and could not provide information was obtained from staff her records. Patient was sent from [facility] for dyspnea and edema. She was hypoxic at 82% on 2 L oxygen with swelling and edema of all of all 4 extremities. When I saw the patient she had good attention span awake however she does not fo llow commands, she could not talk or answer my question. She looks calm no respiratory distress, no tachypnea. She was saturating 90 1900% on 6 L oxygen via nasal cannula. Rest of vital signs stable WBCs 16.6, hemoglobin 9.4. INR is 1.3. Sodium 145, potassium 3.3. Creatinine normal. Liver enzymes mildly elevated troponin 3 are negative. Urinalysis is bluntly abnormal EKG showing normal sinus rhythm at [address]-T changes Chest x-ray showing interstitial lung disease. Correlate for possible pneumonia or edema Echocardiogram from 06/16/2021 showing ejection fraction of 60-65% In the emergency room patient was started on IV Lasix and Zosyn i called the son Mr. Stanley Renner at [phone] to discuss the case, presentation and long-term plan of care. I left a message to call back Review of Systems N/a, patient could not provide information Past Medical History Past Medical History: Dementia Additional Past Medical History / Comment(s): UTI, Left tibial fx, History of Any Multi-Drug Resistant Organisms: None Reported Past Surgical History: Cardiac Valve Replacement Additional Past Surgical History / Comment(s): left ovary removed Past Anesthesia/Blood Transfusion Reactions: No Reported Reaction Past Psychological History: Schizoaffective Disorder, Schizophrenia Smoking Status: Current every day smoker Past Alcohol Use History: None Reported Past Drug Use History: None Reported - Past Family History Mother History Unknown: Yes Father History Unknown: Yes Medications and Allergies Home Medications Medication Instructions Recorded Confirmed Type DULoxetine HCL [Cymbalta] 30 mg PO DAILY 30 Days capsule. 08/13/20 06/29/21 Rx Albuterol Inhaler [Ventolin Hfa 2 puff INHALATION RT-Q4H PRN 02/21/21 06/29/21 History Inhaler] Aspirin 81 mg PO DAILY #30 chew 02/25/21 06/29/21 Rx Folic Acid 1 mg PO DAILY 06/16/21 06/29/21 History Levothyroxine Sodium [Synthroid] 50 mcg PO DAILY@0500 06/16/21 06/29/21 History Melatonin 3 mg PO HS PRN 06/16/21 06/29/21 History Amiodarone [Cordarone] 200 mg PO DAILY #1 tab 06/23/21 06/29/21 Rx Amoxicillin/Potassium Clav 1 tab PO Q12HR #14 tab 06/23/21 06/29/21 Rx [Augmentin 875-125 Tablet] Pantoprazole [Protonix] 40 mg PO BID #0 06/23/21 06/29/21 Rx levETIRAcetam [Keppra] 500 mg PO BID #1 tab 06/23/21 06/29/21 Rx Ipratropium-Albuterol Nebulize 3 ml INHALATION RT-TID PRN 06/29/21 06/29/21 History [Duoneb 0.5 mg-3 mg/3 ml Soln] Allergies Allergy/AdvReac Type Severity Reaction Status Date / Time acetaminophen [From Vicodin] Allergy Rash/Hives Verified 06/29/21 08:22 hydrocodone [From Vicodin] Allergy Rash/Hives Verified 06/29/21 08:22 Physical Exam Vitals: Vital Signs Temp Pulse Resp BP Pulse Ox 06/29/21 10:12 93 20 117/91 100 06/29/21 06:49 98.1 F 86 18 115/79 94 L Intake and Output 06/28/21 06/29/21 06/29/21 22:59 06:59 14:59 Other: Weight 90.718 kg -GENERAL: The patient is awake, nonverbal,not follow commands, not in any acute distress. Well developed, well nourished. HEENT: Pupils are round and equally reacting to light. EOMI. No scleral icterus. No conjunctival pallor. Normocephalic, atraumatic. No pharyngeal erythema. No thyromegaly. CARDIOVASCULAR: S1 and S2 present. No murmurs, rubs, or gallops. -PULMONARY: Chest is clear to auscultation, no wheezing .. Bilateral basal crepitation ABDOMEN: Soft, nontender, nondistended, normoactive bowel sounds. No palpable organomegaly. MUSCULOSKELETAL: No joint swelling or deformity. EXTREMITIES: No cyanosis, clubbing, or pedal edema. NEUROLOGICAL: Gross neurological examination did not reveal any focal deficits. SKIN: No rashes. no petechiae. Results CBC & Chem 7: 06/29/21 07:58 06/29/21 07:58 Labs: Abnormal Lab Results - Last 24 Hours (Table) 06/29/21 06/29/21 06/29/21 Range/Units 07:58 07:58 07:58 WBC 16.6 H (3.8-10.6) k/uL RBC 2.66 L (3.80-5.40) m/uL Hgb 9.4 L (11.4-16.0) gm/dL Hct 29.1 L (34.0-46.0) % MCV 109.2 H (80.0-100.0) fL MCH 35.4 H (25.0-35.0) pg RDW 19.7 H (11.5-15.5) % Neutrophils # 15.0 H (1.3-7.7) k/uL Macrocytosis Marked A PT 13.3 H (9.0-12.0) sec INR 1.3 H (<1.2) APTT 18.1 L (22.0-30.0) sec Potassium 3.3 L (3.5-5.1) mmol/L Chloride 116 H (98-107) mmol/L Carbon Dioxide 21 L (22-30) mmol/L Glucose 113 H (74-99) mg/dL AST 64 H (14-36) U/L ALT 135 H (4-34) U/L Albumin 2.7 L (3.5-5.0) g/dL Urine Protein (Negative) Urine Blood (Negative) Urine WBC (0-5) /hpf Amorphous Sediment (None) /hpf Hyaline Casts (0-2) /lpf Urine Mucus (None) /hpf 06/29/21 Range/Units 09:57 WBC (3.8-10.6) k/uL RBC (3.80-5.40) m/uL Hgb (11.4-16.0) gm/dL Hct (34.0-46.0) % MCV (80.0-100.0) fL MCH (25.0-35.0) pg RDW (11.5-15.5) % Neutrophils # (1.3-7.7) k/uL Macrocytosis PT (9.0-12.0) sec INR (<1.2) APTT (22.0-30.0) sec Potassium (3.5-5.1) mmol/L Chloride (98-107) mmol/L Carbon Dioxide (22-30) mmol/L Glucose (74-99) mg/dL AST (14-36) U/L ALT (4-34) U/L Albumin (3.5-5.0) g/dL Urine Protein 1+ H (Negative) Urine Blood Small H (Negative) Urine WBC 6 H (0-5) /hpf Amorphous Sediment Rare H (None) /hpf Hyaline Casts 15 H (0-2) /lpf Urine Mucus Moderate H (None) /hpf Assessment and Plan Assessment: Acute hypoxic respiratory failure Acute diastolic CHF with pulmonary congestion rather than pneumonia advanced dementia schizophrenia History of seizure History of recurrent urinary tract infection History of fall History of proximal atrial fibrillation currently on amiodarone. History of GI bleed Obesity Plan: This is a pleasant 56 years old female with dementia presents with CHF and less likely pneumonia Continue with IV Lasix and monitor creatinine and electrolytes Continue Zosyn. Follow-up Culture results Labs and medication were reviewed.. Continue same treatment. Continue with symptomatic treatment. Resume home medication. Monitor lytes and vitals. DVT and GI prophylaxis. Further recommendations as per clinical course of the patient DVT prophylaxis: Subcutaneous heparin GI Prophylaxis: Ppi Prognosis is guarded
[2021-06-30] MEDS ORDERED: FUROSEMIDE 10 MG/ML 2 ML VIAL IV ONE (08:44)
[2021-06-30] MEDS ORDERED: ASPIRIN 325 MG TAB PO SCH (09:00)
[2021-06-30] MEDS: DULoxetine HCL 30 MG CAPSULE.DR PO SCH (09:10)
[2021-06-30] MEDS: ASPIRIN 81 MG PO SCH (09:10)
[2021-06-30] MEDS: AMIODARONE 200 MG TAB PO SCH (09:10)
[2021-06-30] MEDS: levETIRAcetam 500 MG TAB PO SCH (09:10)
--- NOTE | 2021-06-30 09:14 | XR ---
EXAMINATION TYPE: XR chest 1V portable DATE OF EXAM: 06/30/2021 COMPARISON: 06/29/2021 HISTORY: Hypoxia TECHNIQUE: Single frontal view of the chest is obtained. FINDINGS: Diffuse bilateral interstitial infiltrates. Small bilateral pleural effusion or thickening . Subsegmental consolidation lung bases. No pneumothorax. Arthropathy of the shoulders. Hypertrophic and degenerative change of the spine. IMPRESSION: Diffuse bilateral infiltrate.
[2021-06-30] MEDS: HEPARIN SODIUM,PORCINE/PF 5,000 UNIT/0.5 ML SYRINGE SQ SCH ×2 (09:19→20:44)
[2021-06-30 10:23] LABS: Anisocytosis Slight; Basophils # (A) 0.1 k/uL (0-0.2); Basophils % (A) 0 %; Eosinophils # (A) 0.1 k/uL (0-0.7); Eosinophils % (A) 1 %; HGB 10.1 gm/dL (11.4-16.0); Hyperchromasia Slight; Lymphocytes # (A) 1.6 k/uL (1.0-4.8); Lymphocytes % (A) 13 %; MCH 35.5 pg (25.0-35.0); MCHC 33.7 g/dL (31.0-37.0); MCV 105.1 fL (80.0-100.0); Macrocytosis Marked; Mean Platelet Volume 8.1; Monocytes # (A) 1.1 k/uL (0-1.0); Monocytes % (A) 9 %; Neutrophils # (A) 9.5 k/uL (1.3-7.7); Neutrophils % (A) 75 %; Platelet Count 278 k/uL (150-450); Poikilocytosis Moderate; RBC 2.86 m/uL (3.80-5.40); RDW 19.9 % (11.5-15.5); WBC 12.7 k/uL (3.8-10.6)
[2021-06-30 10:37] LABS: African American GFR (CKD) >90 (>60 ml/min/1.73 sqM); Anion Gap 14 mmol/L; Blood Urea Nitrogen 10 mg/dL (7-17); Calcium 9.3 mg/dL (8.4-10.2); Carbon Dioxide 24 mmol/L (22-30); Chloride 109 mmol/L (98-107); Glucose 114 mg/dL (74-99); Non-African American GFR(CKD) 79 (>60 ml/min/1.73 sqM); Potassium 2.8 mmol/L (3.5-5.1); Sodium 147 mmol/L (137-145)
[2021-06-30 11:32] LABS: Magnesium 1.3 mg/dL (1.6-2.3)
--- NOTE | 2021-06-30 12:42 | P.CRDCN ---
History of Present Illness Consult date: 06/30/21 History of present illness: HISTORY OF PRESENT ILLNESS: This is a 56-year-old female with a past medical history significant for schizophrenia, hypothyroidism, and paroxysmal atrial fibrillation. 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 We have been asked to see the patient in consultation for congestive heart failure. Patient examined at the bedside. It is noted the patient was recently hospitalized for respiratory failure and was intubated. The patient is obtunded and is unable to give any history. There is no family at the bedside. EKG reveals sinus mechanism with no signs of acute ischemia Chest xray interstitial lung disease, correlate for possible pneumonia, edema Laboratory data: WBC 12.7. Hemoglobin 10.1. Platelet count 278. Sodium 147. Potassium 2.8. BUN 10. Creatinine 0.83. Troponin negative 3. ProBNP 2510. Current home cardiac medications include amiodarone 200 mg daily, aspirin 81 mg daily Most recent echocardiogram obtained in May 2021 revealed ejection fraction 60-65% REVIEW OF SYSTEMS: At the time of my exam: Unable to obtain thorough review of systems secondary to altered mental status PHYSICAL EXAM: VITAL SIGNS: Reviewed. GENERAL: Well-developed in no acute distress. HEENT: Head is normocephalic. Pupils are equal, round. Sclerae anicteric. Mucous membranes of the mouth are moist. Neck supple. No JVD or thyromegaly LUNGS: Respirations even and unlabored. Lungs with bilateral rhonchi noted. HEART: Regular rate and rhythm. S1 and S2 heard. ABDOMEN: Soft. Nondistended. Nontender. EXTREMITIES: Normal range of motion. No clubbing or cyanosis. Peripheral pulses intact. 2+ bilateral lower extremity edema. Patients extremities are cool. NEUROLOGIC: Obtunded ASSESSMENT: Acute hypoxia respiratory failure, possible pneumonia Acute diastolic congestive heart failure, ejection fraction 6065% Paroxysmal atrial fibrillation, not on anticoagulation secondary to history of GI bleed Hypothyroidism History of schizophrenia Advanced dementia Hypokalemia PLAN: No need to repeat echo as this was recently done Continue IV lasix. Give additional 20mg x 1 Patient unable to take oral medications at this time due to altered mental status Replace potassium Prognosis guarded Further recommendations pending patient's course Nurse practitioner note has been reviewed by physician. Signing provider agrees with the documented findings, assessment, and plan of care. Past Medical History Past Medical History: Dementia Additional Past Medical History / Comment(s): UTI, Left tibial fx, History of Any Multi-Drug Resistant Organisms: None Reported Past Surgical History: Cardiac Valve Replacement Additional Past Surgical History / Comment(s): left ovary removed Past Anesthesia/Blood Transfusion Reactions: No Reported Reaction Past Psychological History: Schizoaffective Disorder, Schizophrenia Smoking Status: Current every day smoker Past Alcohol Use History: None Reported Past Drug Use History: None Reported - Past Family History Mother History Unknown: Yes Father History Unknown: Yes Medications and Allergies Home Medications Medication Instructions Recorded Confirmed Type DULoxetine HCL [Cymbalta] 30 mg PO DAILY 30 Days capsule. 08/13/20 06/29/21 Rx Albuterol Inhaler [Ventolin Hfa 2 puff INHALATION RT-Q4H PRN 02/21/21 06/29/21 History Inhaler] Aspirin 81 mg PO DAILY #30 chew 02/25/21 06/29/21 Rx Folic Acid 1 mg PO DAILY 06/16/21 06/29/21 History Levothyroxine Sodium [Synthroid] 50 mcg PO DAILY@0500 06/16/21 06/29/21 History Melatonin 3 mg PO HS PRN 06/16/21 06/29/21 History Amiodarone [Cordarone] 200 mg PO DAILY #1 tab 06/23/21 06/29/21 Rx Amoxicillin/Potassium Clav 1 tab PO Q12HR #14 tab 06/23/21 06/29/21 Rx [Augmentin 875-125 Tablet] Pantoprazole [Protonix] 40 mg PO BID #0 06/23/21 06/29/21 Rx levETIRAcetam [Keppra] 500 mg PO BID #1 tab 06/23/21 06/29/21 Rx Ipratropium-Albuterol Nebulize 3 ml INHALATION RT-TID PRN 06/29/21 06/29/21 History [Duoneb 0.5 mg-3 mg/3 ml Soln] Allergies Allergy/AdvReac Type Severity Reaction Status Date / Time acetaminophen [From Vicodin] Allergy Rash/Hives Verified 06/29/21 08:22 hydrocodone [From Vicodin] Allergy Rash/Hives Verified 06/29/21 08:22 Physical Exam Vitals: Vital Signs Temp Pulse Pulse Resp BP BP Pulse Ox 06/30/21 08:00 97.5 F L 104 H 19 155/80 99 06/30/21 02:12 97.2 F L 77 20 119/75 95 06/29/21 23:44 72 16 06/29/21 22:44 98 F 72 16 115/87 97 06/29/21 20:23 80 19 137/82 97 06/29/21 18:08 82 18 132/96 97 06/29/21 13:12 86 18 134/84 99 06/29/21 10:12 93 20 117/91 100 Intake and Output 06/29/21 06/30/21 06/30/21 22:59 06:59 14:59 Output Total 3475 700 Balance -3475 -700 Output: Urine 3475 700 Other: Voiding Method Indwelling Catheter # Bowel Movements 1 Weight 93 kg Results 06/30/21 09:33 06/30/21 09:33 Cardiac Enzymes 06/29/21 06/29/21 06/29/21 Range/Units 07:58 11:10 14:30 Troponin I <0.012 0.022 0.030 (0.000-0.034) ng/mL Coagulation 06/29/21 Range/Units 07:58 PT 13.3 H (9.0-12.0) sec APTT 18.1 L (22.0-30.0) sec Current Medications Generic Name Dose Route Start Last Admin Trade Name Freq PRN Reason Stop Dose Admin Amiodarone HCl 200 mg 06/30/21 09:00 Amiodarone 200 Mg Tab PO DAILY [facility] Aspirin 325 mg 06/30/21 09:00 Aspirin 325 Mg Tab PO DAILY [facility] Duloxetine HCl 30 mg 06/30/21 09:00 Duloxetine Hcl 30 Mg Capsule.Dr PO DAILY NIESHA Furosemide 40 mg 06/29/21 10:00 06/30/21 02:07 Furosemide 10 Mg/Ml 4 Ml Vial IV 40 mg Q8H NIESHA Administration Furosemide 20 mg 06/30/21 08:44 Furosemide 10 Mg/Ml 2 Ml Vial IV 06/30/21 08:45 ONCE ONE Heparin Sodium (Porcine) 5,000 unit 06/30/21 09:00 Heparin Sodium,Porcine/Pf 5,000 Unit/0.5 Ml Syringe SQ Q12HR NIESHA Piperacillin Sod/Tazobactam 100 mls @ 25 mls/hr 06/29/21 18:00 06/30/21 02:07 Sod 3.375 gm/ Sodium Chloride IVPB 25 mls/hr Q8H NIESHA Administration Levetiracetam 500 mg 06/29/21 21:15 06/29/21 22:25 Levetiracetam 500 Mg Tab PO 500 mg BID NIESHA Administration Levothyroxine Sodium 50 mcg 06/30/21 06:30 06/29/21 22:58 Levothyroxine 50 Mcg Tab PO Not Given DAILY@0630 NIESHA Melatonin 3 mg 06/29/21 21:07 Melatonin 3 Mg Tablet PO HS PRN Insomnia Pantoprazole Sodium 40 mg 06/30/21 07:30 06/29/21 22:58 Pantoprazole 40 Mg Tablet PO Not Given AC-BID NIESHA Sodium Chloride 10 ml 06/29/21 21:00 06/29/21 21:32 Sodium Chloride 0.9% Flush 10 Ml Syringe IV Not Given BID NIESHA Intake and Output 06/29/21 06/30/21 06/30/21 22:59 06:59 14:59 Output Total 3475 700 Balance -3475 -700 Output: Urine 3475 700 Other: Voiding Method Indwelling Catheter # Bowel Movements 1 Weight 93 kg 06/29/21 07:58 06/29/21 07:58
[2021-06-30 13:16] VITALS: BMI 32.1
[2021-06-30 14:55] LABS: Polychromasia Present
--- NOTE | 2021-06-30 15:37 | P.PN ---
Progress Note - Text Progress Note Date: 06/30/21 History of presenting complaint: This is a 56-year-old patient, follows with Dr. Beltrán at the [facility]. admitted to the hospital in May 05 and transferred on May 10 2 [address]oya.Admitted then UTI from cystitis with sepsis, bilateral pneumonia, septic shock, acute kidney injury with ATN.IV fluids. IV ceftriaxone. Admitted to the ICU. transfer out was done for continuous EEG monitoring. June 16 admitted with unresponsiveness. hypotensive. Acute kidney injury. abnormal liver enzymes, UA was positive. intubated / mechanical ventilator. atrial fibrillation. Admitted with acute metabolic/toxic encephalopathy from sepsis, septic shock, pneumonia, acute kidney injury likely from ATN, atrial flutter fibrillation rate uncontrolled, metabolic acidosis. ICU drips include norepinephrine, propofol, OG tube feeding. She GI bleed that was self-limited. June 21 patient was extubated. received IV Zosyn and vancomycin. started on Keppra by neurology. Patient had declined a PEG tube. Patient hasn't done too well with swallowing. Comfort feeding done. At this point patient is a DO NOT RESUSCITATE. Patient's son was leaning towards comfort measures. direct care worker was involved in a court-appointed guardian as thermal finding it difficult to get out of the sun. Patient was discharged to the [facility] on June 25. Patient now readmitted on June 29 with increasing shortness of breath. It to be CHF exacerbation. Put on IV Lasix. 06/30/2021: Laying in bed. Does open eyes occasionally. Does answer questions. On release congested sounding chest. On IV Lasix. Nurse informed me that the son had not been returning any phone call and she tried different numbers available. Apparently a court date is pending on July [address]-appointed guardian. Patient not taking anything by mouth. Review of systems: Patient doesn't communicate Active Medications Amiodarone HCl (Amiodarone 200 Mg Tab) 200 mg PO DAILY [facility] Last Admin: 06/30/21 09:10 Dose: Not Given Documented by: Aspirin (Aspirin 81 Mg) 81 mg PO DAILY [facility] Last Admin: 06/30/21 09:10 Dose: Not Given Documented by: Duloxetine HCl (Duloxetine Hcl 30 Mg Capsule.Dr) 30 mg PO DAILY [facility] Last Admin: 06/30/21 09:10 Dose: Not Given Documented by: Furosemide (Furosemide 10 Mg/Ml 4 Ml Vial) 40 mg IV Q8H [facility] Last Admin: 06/30/21 09:11 Dose: 40 mg Documented by: Heparin Sodium (Porcine) (Heparin Sodium,Porcine/Pf 5,000 Unit/0.5 Ml Syringe) 5,000 unit SQ Q12HR [facility] Last Admin: 06/30/21 09:19 Dose: 5,000 unit Documented by: Piperacillin Sod/Tazobactam (Sod 3.375 gm/ Sodium Chloride) 100 mls @ 25 mls/hr IVPB Q8H [facility] Last Admin: 06/30/21 10:50 Dose: 25 mls/hr Documented by: Levetiracetam (Levetiracetam 500 Mg Tab) 500 mg PO BID [facility] Last Admin: 06/30/21 09:10 Dose: Not Given Documented by: Levothyroxine Sodium (Levothyroxine 50 Mcg Tab) 50 mcg PO DAILY@0630 [facility] Last Admin: 06/29/21 22:58 Dose: Not Given Documented by: Melatonin (Melatonin 3 Mg Tablet) 3 mg PO HS PRN PRN Reason: Insomnia Pantoprazole Sodium (Pantoprazole 40 Mg Tablet) 40 mg PO AC-BID [facility] Last Admin: 06/29/21 22:58 Dose: Not Given Documented by: Sodium Chloride (Sodium Chloride 0.9% Flush 10 Ml Syringe) 10 ml IV BID [facility] Last Admin: 06/30/21 09:12 Dose: 10 ml Documented by: Past medical history to include: Atrial fibrillation, bibasilar fibrotic lung changes with honeycombing, schizoaffective disorder, nicotine use, in February/2021 patient did have a left tibial plate to and left proximal fibular fracture Social history: ECF. Smoker, until recently. Marijuana use history of Family history: Could not be obtained. Physical examination: VITAL SIGNS: 97.9, 92, 20, 150s/67, 99% on 4 L GENERAL: Laying in bed, tired, occasionally opens eyes, some swelling of the arms and legs. EYES: Pupils equal. Conjunctiva normal. HEENT: External appearance of nose and ears normal, oral cavity mucous membranes. NECK: JVD unable to assess; masses not palpable. HEART: First and second heart sounds are normal; mild edema. LUNGS: Respiratory rate increased; decreased breath sounds , audible crackles ABDOMEN: Soft, nontender, liver spleen not palpable, no masses palpable. PSYCH: Unable to assess NEURO: Occasionally open eyes. Not following commands. INVESTIGATIONS, reviewed in the clinical context: June 30: WBC 12.7 hemoglobin 10.1 platelets 278 sodium 147 potassium 2.8 creatinine 0.83 Troponin I negative proBNP 1949 COVID 19 [PCR]: Negative EKG tracing personally reviewed by me-sinus rhythm 84/m Chest x-ray film personally reviewed by me-catheter infiltrates Previous testing: May 10: BUN 17 creatinine 0.93, AST/ALT both normal CT chest [02/24/2021] chronic parenchymal fibrotic changes greatest in the bases. With honeycombing. It is of groundglass opacities. 2-D echocardiogram: EF 55 have a 60%. [id number] tricuspid regurgitation. Some element of pulmonary hypertension Assessment and plan: -Acute on chronic/metabolic/toxic encephalopathy. -Acute hypoxic respiratory failure, multifactorial improving Status post ventilator assisted. Extubated June 21. on 96% on room air -Chronic bilateral pulmonary fibrosis with honeycombing Bronchodilators. -poss seizure Keppra -Paroxysmal atrial flutter-fibrillation, in sinus rhythm By mouth amiodarone. Eliquis . -Chronic pulmonary fibrosis especially at the bases with honeycombing -Schizoaffective disorder On Invega -COPD in a smoker DuoNeb. -Hypernatremia from free water deficit IV fluids. Follow BMP -Severe Hypokalemia Replace potassium -Acute on chronic medical debility. Patient has not been out of bed. Not communicating. Not eating. -DO NOT RESUSCITATE Patient continues to do very poorly. Not too different from when she left the hospital. She was barely eating when she left. She was DO NOT RESUSCITATE. Son was then talking about comfort care. As the discharge plan was not able to reach him, application was made for court-appointed guardian. Hearing is on July 02. Spoke with length to the nurse. Keep on IV Lasix. Check pro- calcitonin. Will change Keppra and Synthroid to IV. manager stylist and social security assessor involved.
[2021-06-30] MEDS ORDERED: Potassium Replacement Protocol 1 EACH MISC MISCELLANE PRN (15:42)
[2021-06-30] MEDS: LEVOTHYROXINE IVP 100 MCG/5 ML VIAL IV SCH (16:34)
[2021-06-30] MEDS: levETIRAcetam IV 500 MG in SODIUM CHLORIDE 0.9% 100 ML IVPB SCH (16:34)
[2021-06-30] MEDS: POTASSIUM CHLORIDE 10 MEQ in WATER FOR INJECTION 1 100ML.BAG IVPB SCH ×4 (18:02→23:14)
[2021-06-30] MEDS ORDERED: Magnesium Replacement Protocol 1 EACH MISC MISCELLANE PRN (20:42)
[2021-06-30] MEDS: PANTOPRAZOLE 40 MG/10 ML VIAL IVP SCH (20:44)
[2021-06-30] MEDS: MAGNESIUM SULFATE-D5W PMX 1 GM in DEXTROSE/WATER 1 100ML.BAG IVPB SCH (22:17)
[2021-07-01] MEDS: MAGNESIUM SULFATE-D5W PMX 1 GM in DEXTROSE/WATER 1 100ML.BAG IVPB SCH ×2 (00:22→01:29)
[2021-07-01] MEDS: levETIRAcetam IV 500 MG in SODIUM CHLORIDE 0.9% 100 ML IVPB SCH ×3 (00:49→20:43)
[2021-07-01] MEDS: POTASSIUM CHLORIDE 10 MEQ in WATER FOR INJECTION 1 100ML.BAG IVPB SCH ×2 (01:22→02:32)
[2021-07-01] MEDS: FUROSEMIDE 10 MG/ML 4 ML VIAL IV SCH ×2 (02:32→10:51)
[2021-07-01] MEDS: PIPERACILLIN-TAZOBACTAM 3.375 GM in SODIUM CHLORIDE 0.9% 100 ML IVPB SCH ×3 (02:33→17:41)
[2021-07-01] MEDS: DULoxetine HCL 30 MG CAPSULE.DR PO SCH (08:05)
[2021-07-01] MEDS: ASPIRIN 81 MG PO SCH (08:05)
[2021-07-01] MEDS: AMIODARONE 200 MG TAB PO SCH (08:05)
[2021-07-01] MEDS: HEPARIN SODIUM,PORCINE/PF 5,000 UNIT/0.5 ML SYRINGE SQ SCH ×2 (08:11→20:43)
[2021-07-01] MEDS: PANTOPRAZOLE 40 MG/10 ML VIAL IVP SCH ×2 (08:11→20:43)
[2021-07-01 09:44] LABS: African American GFR (CKD) >90 (>60 ml/min/1.73 sqM); Anion Gap 18 mmol/L; Blood Urea Nitrogen 11 mg/dL (7-17); Calcium 9.3 mg/dL (8.4-10.2); Carbon Dioxide 25 mmol/L (22-30); Chloride 111 mmol/L (98-107); Glucose 95 mg/dL (74-99); Magnesium 1.9 mg/dL (1.6-2.3); Non-African American GFR(CKD) 88 (>60 ml/min/1.73 sqM); Sodium 154 mmol/L (137-145)
[2021-07-01 09:59] LABS: Potassium 4.6 mmol/L (3.5-5.1)
[2021-07-01 11:37] LABS: Glucose,Whole Blood 102 mg/dL (75-99)
--- NOTE | 2021-07-01 11:39 | P.PN ---
Subjective Progress Note Date: 07/01/21 HISTORY OF PRESENT ILLNESS: This is a 56-year-old female with a past medical history significant for schizophrenia, hypothyroidism, and paroxysmal atrial fibrillation. Patient does not follow with a survey associate. We have been asked to see the patient in consultation for congestive heart failure. Patient examined at the bedside. It is noted the patient was recently hospitalized for respiratory failure and was intubated. The patient is obtunded and is unable to give any history. There is no family at the bedside. EKG reveals sinus mechanism with no signs of acute ischemia Chest xray interstitial lung disease, correlate for possible pneumonia, edema Laboratory data: WBC 12.7. Hemoglobin 10.1. Platelet count 278. Sodium 147. Potassium 2.8. BUN 10. Creatinine 0.83. Troponin negative 3. ProBNP 2510. Current home cardiac medications include amiodarone 200 mg daily, aspirin 81 mg daily Most recent echocardiogram obtained in May 2021 revealed ejection fraction 60-65% 07/01/2021 Patient examined this morning at bedside. Patient remains obtunded. She remains on IV Lasix 40 mg every 8 hours. Fluid balance over the last 24 hours is -3 L. She remains edematous in her bilateral upper and lower extremities. Kidney function remained stable. Creatinine 0.76. Potassium improved today to 4.6 from 2.8 yesterday. PHYSICAL EXAM: VITAL SIGNS: Reviewed. GENERAL: Well-developed in no acute distress. HEENT: Head is normocephalic. Pupils are equal, round. Sclerae anicteric. Mucous membranes of the mouth are moist. Neck supple. No JVD or thyromegaly LUNGS: Respirations even and unlabored. Lungs with bilateral rhonchi noted. HEART: Regular rate and rhythm. S1 and S2 heard. EXTREMITIES: Normal range of motion. No clubbing or cyanosis. Peripheral pulses intact. 2+ bilateral lower extremity edema. Patients extremities are cool. ASSESSMENT: Acute hypoxia respiratory failure, possible pneumonia Acute diastolic congestive heart failure, ejection fraction 6065% Paroxysmal atrial fibrillation, not on anticoagulation secondary to history of GI bleed Hypothyroidism History of schizophrenia Advanced dementia Hypokalemia, resolved PLAN: Continue IV Lasix. Increase dosing to 60 mg every 8 hours Monitor kidney function Daily weights Accurate I&O Further recommendations pending patient's course Nurse practitioner note has been reviewed by physician. Signing provider agrees with the documented findings, assessment, and plan of care. Objective - Vital Signs Vital signs: Vital Signs Temp 98.3 F 07/01/21 08:00 Pulse 78 07/01/21 08:00 Resp 19 07/01/21 08:00 BP 113/66 07/01/21 08:00 Pulse Ox 97 07/01/21 08:00 Intake & Output 06/30/21 07/01/21 07/01/21 18:59 06:59 18:59 Output Total 1700 1325 Balance -1700 -1325 Weight 93 kg 94 kg Output: Urine 1700 1325 Other: Voiding Method Indwelling Catheter Indwelling Catheter Indwelling Catheter - Labs CBC & Chem 7: 06/30/21 09:33 07/01/21 08:26 Labs: Abnormal Lab Results - Last 24 Hours (Table) 06/30/21 07/01/21 Range/Units 09:33 08:26 Neutrophils # 9.5 H (1.3-7.7) k/uL Monocytes # 1.1 H (0-1.0) k/uL Sodium 154 H (137-145) mmol/L Chloride 111 H (98-107) mmol/L Microbiology - Last 24 Hours (Table) 06/29/21 08:41 Blood Culture Gram Stain - Preliminary Blood Blood Culture - Preliminary Staphylococcus epidermidis 06/29/21 08:41 Blood Culture - Final Blood
[2021-07-01] MEDS ORDERED: SCOPOLAMINE 1.5MG/72HR PATCH TRANSDERM SCH (12:15)
--- NOTE | 2021-07-01 14:38 | P.PN ---
Progress Note - Text Progress Note Date: 07/01/21 History of presenting complaint: This is a 56-year-old patient, follows with Dr. Beltrán at the [facility]. admitted to the hospital in May 05 and transferred on May 10 2 [address]oya.Admitted then UTI from cystitis with sepsis, bilateral pneumonia, septic shock, acute kidney injury with ATN.IV fluids. IV ceftriaxone. Admitted to the ICU. transfer out was done for continuous EEG monitoring. June 16 admitted with unresponsiveness. hypotensive. Acute kidney injury. abnormal liver enzymes, UA was positive. intubated / mechanical ventilator. atrial fibrillation. Admitted with acute metabolic/toxic encephalopathy from sepsis, septic shock, pneumonia, acute kidney injury likely from ATN, atrial flutter fibrillation rate uncontrolled, metabolic acidosis. ICU drips include norepinephrine, propofol, OG tube feeding. She GI bleed that was self-limited. June 21 patient was extubated. received IV Zosyn and vancomycin. started on Keppra by neurology. Patient had declined a PEG tube. Patient hasn't done too well with swallowing. Comfort feeding done. At this point patient is a DO NOT RESUSCITATE. Patient's son was leaning towards comfort measures. environmental services worker was involved in a court-appointed guardian as thermal finding it difficult to get out of the sun. Patient was discharged to the [facility] on June 25. Patient now readmitted on June 29 with increasing shortness of breath. It to be CHF exacerbation. Put on IV Lasix. 06/30/2021: Laying in bed. Does open eyes occasionally. Does answer questions. On release congested sounding chest. On IV Lasix. Nurse informed me that the son had not been returning any phone call and she tried different numbers available. Apparently a court date is pending on July [address]-appointed guardian. Patient not taking anything by mouth. 07/01/2021: Laying in bed. Congested chest. Does open eyes. Not really following commands. IV Lasix. IV Zosyn. Scopolamine patch added. Spoke to the director social. Court hearing tomorrow for guardian. Spoke to the nurse the son did call saying that is okay to proceed with hospice. Review of systems: Patient doesn't communicate Active Medications Amiodarone HCl (Amiodarone 200 Mg Tab) 200 mg PO DAILY [facility] Last Admin: 07/01/21 08:05 Dose: Not Given Documented by: Aspirin (Aspirin 81 Mg) 81 mg PO DAILY [facility] Last Admin: 07/01/21 08:05 Dose: Not Given Documented by: Duloxetine HCl (Duloxetine Hcl 30 Mg Capsule.Dr) 30 mg PO DAILY [facility] Last Admin: 07/01/21 08:05 Dose: Not Given Documented by: Furosemide (Furosemide 10 Mg/Ml 10 Ml Vial) 60 mg IV Q8H [facility] Heparin Sodium (Porcine) (Heparin Sodium,Porcine/Pf 5,000 Unit/0.5 Ml Syringe) 5,000 unit SQ Q12HR [facility] Last Admin: 07/01/21 08:11 Dose: 5,000 unit Documented by: Piperacillin Sod/Tazobactam (Sod 3.375 gm/ Sodium Chloride) 100 mls @ 25 mls/hr IVPB Q8H [facility] Last Admin: 07/01/21 10:51 Dose: 25 mls/hr Documented by: Levetiracetam 500 mg/ Sodium (Chloride) 105 mls @ 400 mls/hr IVPB Q12HR [facility] Last Admin: 07/01/21 08:12 Dose: 400 mls/hr Documented by: Levothyroxine Sodium (Levothyroxine Ivp 100 Mcg/5 Ml Vial) 50 mcg IV Q48H [facility] Last Admin: 06/30/21 16:34 Dose: 50 mcg Documented by: Melatonin (Melatonin 3 Mg Tablet) 3 mg PO HS PRN PRN Reason: Insomnia Miscellaneous Information (Potassium Replacement Protocol 1 Each Misc) 1 each MISCELLANE DAILY PRN; Protocol PRN Reason: Per Protocol Miscellaneous Information (Magnesium Replacement Protocol 1 Each Misc) 1 each MISCELLANE DAILY PRN; Protocol PRN Reason: Per Protocol Pantoprazole Sodium (Pantoprazole 40 Mg/10 Ml Vial) 40 mg IVP BID [facility] Last Admin: 07/01/21 08:11 Dose: 40 mg Documented by: Scopolamine (Scopolamine 1.5mg/72hr Patch) 1 patch TRANSDERM Q72H [facility] Last Admin: 07/01/21 13:18 Dose: 1 patch Documented by: Sodium Chloride (Sodium Chloride 0.9% Flush 10 Ml Syringe) 10 ml IV BID [facility] Last Admin: 07/01/21 08:05 Dose: Not Given Documented by: Past medical history to include: Atrial fibrillation, bibasilar fibrotic lung changes with honeycombing, schizoaf fective disorder, nicotine use, in February/2021 patient did have a left tibial plate to and left proximal fibular fracture Social history: ECF. Smoker, until recently. Marijuana use history of Family history: Could not be obtained. Physical examination: VITAL SIGNS: 98, 77, 19, 97.70, 97% 4 L GENERAL: Laying in bed, tired, occasionally opens eyes, some swelling of the arms and legs. EYES: Pupils equal. Conjunctiva normal. HEENT: External appearance of nose and ears normal, oral cavity mucous membranes. NECK: JVD unable to assess; masses not palpable. HEART: First and second heart sounds are normal; mild edema. LUNGS: Respiratory rate increased; decreased breath sounds , audible crackles ABDOMEN: Soft, nontender, liver spleen not palpable, no masses palpable. PSYCH: Unable to assess NEURO: Occasionally open eyes. Not following commands. INVESTIGATIONS, reviewed in the clinical context: July 01: Sodium 154 potassium 4.6 creatinine 0.76 June 30: WBC 12.7 hemoglobin 10.1 platelets 278 sodium 147 potassium 2.8 creatinine 0.83 Troponin I negative proBNP 1950 COVID 19 [PCR]: Negative EKG tracing personally reviewed by me-sinus rhythm 84/m Chest x-ray film personally reviewed by me-catheter infiltrates Previous testing: May 10: BUN 17 creatinine 0.93, AST/ALT both normal CT chest [02/24/2021] chronic parenchymal fibrotic changes greatest in the bases. With honeycombing. It is of groundglass opacities. 2-D echocardiogram: EF 55 have a 60%. [id number] tricuspid regurgitation. Some element of pulmonary hypertension Assessment and plan: -Acute on chronic/metabolic/toxic encephalopathy. -Acute hypoxic respiratory failure, multifactorial improving On 4 L nasal cannula -Chronic bilateral pulmonary fibrosis with honeycombing Bronchodilators. -poss seizure Keppra -Paroxysmal atrial flutter-fibrillation, in sinus rhythm By mouth amiodarone. Eliquis . -Chronic pulmonary fibrosis especially at the bases with honeycombing -Schizoaffective disorder On Invega -COPD in a smoker DuoNeb. -Hypernatremia from free water deficit: Worsening IV fluids. Follow BMP -Severe Hypokalemia Replace potassium -Acute on chronic medical debility. Patient has not been out of bed. Not communicating. Not eating. -DO NOT RESUSCITATE Sodium is got to 154. Poor oral intake. Hold off IV Lasix if okay with cardiology. Court hearing tomorrow. Patient will be appropriate for hospice. The total time spent today about 40 minutes with over 20 minutes of discussion about the patient.
[2021-07-01] MEDS: FUROSEMIDE 10 MG/ML 10 ML VIAL IV SCH (20:31)
[2021-07-02] MEDS: PIPERACILLIN-TAZOBACTAM 3.375 GM in SODIUM CHLORIDE 0.9% 100 ML IVPB SCH ×2 (01:53→10:34)
[2021-07-02] MEDS: FUROSEMIDE 10 MG/ML 10 ML VIAL IV SCH ×2 (02:00→12:30)
[2021-07-02] MEDS: levETIRAcetam IV 500 MG in SODIUM CHLORIDE 0.9% 100 ML IVPB SCH (10:33)
[2021-07-02] MEDS: AMIODARONE 200 MG TAB PO SCH (10:34)
[2021-07-02] MEDS: ASPIRIN 81 MG PO SCH (10:34)
[2021-07-02] MEDS: DULoxetine HCL 30 MG CAPSULE.DR PO SCH (10:34)
[2021-07-02] MEDS: HEPARIN SODIUM,PORCINE/PF 5,000 UNIT/0.5 ML SYRINGE SQ SCH (10:35)
[2021-07-02] MEDS: PANTOPRAZOLE 40 MG/10 ML VIAL IVP SCH (10:35)
[2021-07-02 10:57] LABS: Calcium 8.9 mg/dL (8.4-10.2)
[2021-07-02 11:14] LABS: Potassium 2.5 mmol/L (3.5-5.1)
[2021-07-02] MEDS ORDERED: Potassium Replacement Protocol 1 EACH MISC MISCELLANE PRN (11:38)
[2021-07-02] MEDS: POTASSIUM CHLORIDE 10 MEQ in WATER FOR INJECTION 1 100ML.BAG IVPB SCH ×5 (12:31→17:13)
--- NOTE | 2021-07-02 13:49 | P.PN ---
Subjective Progress Note Date: 07/02/21 HISTORY OF PRESENT ILLNESS: This is a 56-year-old female with a past medical history significant for schizophrenia, hypothyroidism, and paroxysmal atrial fibrillation. Patient does not follow with a stage rigger. We have been asked to see the patient in consultation for congestive heart failure. Patient examined at the bedside. It is noted the patient was recently hospitalized for respiratory failure and was intubated. The patient is obtunded and is unable to give any history. There is no family at the bedside. EKG reveals sinus mechanism with no signs of acute ischemia Chest xray interstitial lung disease, correlate for possible pneumonia, edema Laboratory data: WBC 12.7. Hemoglobin 10.1. Platelet count 278. Sodium 147. Potassium 2.8. BUN 10. Creatinine 0.83. Troponin negative 3. ProBNP 2510. Current home cardiac medications include amiodarone 200 mg daily, aspirin 81 mg daily Most recent echocardiogram obtained in May 2021 revealed ejection fraction 60-65% 07/01/2021 Patient examined this morning at bedside. Patient remains obtunded. She remains on IV Lasix 40 mg every 8 hours. Fluid balance over the last 24 hours is -3 L. She remains edematous in her bilateral upper and lower extremities. Kidney function remained stable. Creatinine 0.76. Potassium improved today to 4.6 from 2.8 yesterday. 07/02/2021 Patient examined this morning at the bedside. Patient remains obtunded. She remains on IV Lasix 60 mg every 8 hours. Fluid balance over the last 24 hours is -3 L. Kidney function remained stable. Patient's potassium low today at 2.5 PHYSICAL EXAM: VITAL SIGNS: Reviewed. GENERAL: Well-developed in no acute distress. HEENT: Head is normocephalic. Pupils are equal, round. Sclerae anicteric. Mucous membranes of the mouth are moist. Neck supple. No JVD or thyromegaly LUNGS: Respirations even and unlabored. Lungs with bilateral rhonchi noted. HEART: Regular rate and rhythm. S1 and S2 heard. EXTREMITIES: No clubbing or cyanosis. Peripheral pulses intact. 2+ bilateral lower extremity edema. Patients extremities are cool. ASSESSMENT: Acute hypoxia respiratory failure, possible pneumonia Acute diastolic congestive heart failure, ejection fraction 6065% Paroxysmal atrial fibrillation, not on anticoagulation secondary to history of GI bleed Hypothyroidism History of schizophrenia Advanced dementia Hypokalemia PLAN: Continue IV Lasix Monitor kidney function Daily weights Accurate I&O Further recommendations pending patient's course Nurse practitioner note has been reviewed by physician. Signing provider agrees with the documented findings, assessment, and plan of care. Objective - Vital Signs Vital signs: Vital Signs Temp 99.1 F 07/02/21 12:30 Pulse 89 07/02/21 12:30 Resp 20 07/02/21 12:30 BP 119/67 07/02/21 12:30 Pulse Ox 94 L 07/02/21 12:30 Intake & Output 07/01/21 07/02/21 07/02/21 18:59 06:59 18:59 Intake Total 200 Output Total 1350 2300 1100 Balance -1350 -2100 -1100 Weight 91.5 kg Intake: Intake, IV Titration 200 Amount Piperacillin-Tazobactam 3 100 .375 gm In Sodium Chloride 0.9% 100 ml @ 25 mls/hr IVPB Q8H [facility] OF [facility] Rx#: [id number] levETIRAcetam IV 500 mg 100 In Sodium Chloride 0.9% 100 ml @ 400 mls/hr IVPB Q12HR [facility] LICENSE OF [facility] Rx#:[id number] Output: Urine 1350 2300 1100 Straight 1150 1100 Other: Voiding Method Indwelling Catheter Indwelling Catheter - Labs CBC & Chem 7: 06/30/21 09:33 07/02/21 10:23 Labs: Abnormal Lab Results - Last 24 Hours (Table) 06/30/21 07/02/21 Range/Units 09:33 10:23 Sodium 146 H (137-145) mmol/L Potassium 2.5 L* (3.5-5.1) mmol/L Carbon Dioxide 33 H (22-30) mmol/L Glucose 123 H (74-99) mg/dL Procalcitonin 0.45 H (0.02-0.09) ng/mL Microbiology - Last 24 Hours (Table) 06/29/21 08:41 Blood Culture Gram Stain - Final Blood Blood Culture - Final Staphylococcus epidermidis
[2021-07-02] MEDS: LEVOTHYROXINE IVP 100 MCG/5 ML VIAL IV SCH (16:09)
--- NOTE | 2021-07-02 17:14 | P.PN ---
Progress Note - Text Progress Note Date: 07/02/21 History of presenting complaint: This is a 56-year-old patient, follows with Dr. Beltrán at the [facility]. admitted to the hospital in May 05 and transferred on May 10 2 Caridad Montoya.Admitted then UTI from cystitis with sepsis, bilateral pneumonia, septic shock, acute kidney injury with ATN.IV fluids. IV ceftriaxone. Admitted to the ICU. transfer out was done for continuous EEG monitoring. June 16 admitted with unresponsiveness. hypotensive. Acute kidney injury. abnormal liver enzymes, UA was positive. intubated / mechanical ventilator. atrial fibrillation. Admitted with acute metabolic/toxic encephalopathy from sepsis, septic shock, pneumonia, acute kidney injury likely from ATN, atrial flutter fibrillation rate uncontrolled, metabolic acidosis. ICU drips include norepinephrine, propofol, OG tube feeding. She GI bleed that was self-limited. June 21 patient was extubated. received IV Zosyn and vancomycin. started on Keppra by neurology. Patient had declined a PEG tube. Patient hasn't done too well with swallowing. Comfort feeding done. At this point patient is a DO NOT RESUSCITATE. Patient's son was leaning towards comfort measures. workers' compensation claims supervisor was involved in a court-appointed guardian as thermal finding it difficult to get out of the sun. Patient was discharged to the [facility] on June 25. Patient now readmitted on June 29 with increasing shortness of breath. It to be CHF exacerbation. Put on IV Lasix. 06/30/2021: Laying in bed. Does open eyes occasionally. Does answer questions. On release congested sounding chest. On IV Lasix. Nurse informed me that the son had not been returning any phone call and she tried different numbers available. Apparently a court date is pending on July [address]-appointed guardian. Patient not taking anything by mouth. 07/01/2021: Laying in bed. Congested chest. Does open eyes. Not really following commands. IV Lasix. IV Zosyn. Scopolamine patch added. Spoke to the social sciences chair. Court hearing tomorrow for guardian. Spoke to the nurse the son did call saying that is okay to proceed with hospice. 07/02/2021: Court had a heating done with just Glenn. Public guardian Latonia was appointed a guardian. Hospice was ordered. Patient not eating drinking. I have discontinued most of the medications except for comfort care. Hoping the patient may be able to go back to [facility] depending on the clinical course today. Review of systems: Patient doesn't communicate Active Medications Furosemide (Furosemide 10 Mg/Ml 10 Ml Vial) 60 mg IV Q8H [facility] Last Admin: 07/02/21 12:30 Dose: 60 mg Documented by: Levetiracetam 500 mg/ Sodium (Chloride) 105 mls @ 400 mls/hr IVPB Q12HR NIESHA Last Admin: 07/02/21 10:33 Dose: 400 mls/hr Documented by: Levothyroxine Sodium (Levothyroxine Ivp 100 Mcg/5 Ml Vial) 50 mcg IV Q48H NIESHA Last Admin: 07/02/21 16:09 Dose: 50 mcg Documented by: Miscellaneous Information (Potassium Replacement Protocol 1 Each Misc) 1 each MISCELLANE DAILY PRN; Protocol PRN Reason: Per Protocol Scopolamine (Scopolamine 1.5mg/72hr Patch) 1 patch TRANSDERM Q72H NIESHA Last Admin: 07/01/21 13:18 Dose: 1 patch Documented by: Sodium Chloride (Sodium Chloride 0.9% Flush 10 Ml Syringe) 10 ml IV BID [facility] Last Admin: 07/02/21 10:35 Dose: Not Given Documented by: Past medical history to include: Atrial fibrillation, bibasilar fibrotic lung changes with honeycombing, schizoaffective disorder, nicotine use, in February/2021 patient did have a left tibial plate to and left proximal fibular fracture Social history: ECF. Smoker, until recently. Marijuana use history of Family history: Could not be obtained. Physical examination: VITAL SIGNS: 99.1, 89, 20, 119 x 67, 94% on 4 L GENERAL: Laying in bed, tired, occasionally opens eyes, some swelling of the arms and legs. EYES: Pupils equal. Conjunctiva normal. HEENT: External appearance of nose and ears normal, oral cavity mucous membranes. NECK: JVD unable to assess; masses not palpable. HEART: First and second heart sounds are normal; mild edema. LUNGS: Respiratory rate increased; decreased breath sounds , audible crackles ABDOMEN: Soft, nontender, liver spleen not palpable, no masses palpable. PSYCH: Unable to assess NEURO: Occasionally open eyes. Not following commands. INVESTIGATIONS, reviewed in the clinical context: July 02: Sodium 146 potassium 2.5 creatinine 0.86 July 01: Sodium 154 potassium 4.6 creatinine 0.76 June 30: WBC 12.7 hemoglobin 10.1 platelets 278 sodium 147 potassium 2.8 creatinine 0.83 Troponin I negative proBNP 1950 COVID 19 [PCR]: Negative EKG tracing personally reviewed by me-sinus rhythm 84/m Chest x-ray film personally reviewed by me-catheter infiltrates Previous testing: May 10: BUN 17 creatinine 0.93, AST/ALT both normal CT chest [02/24/2021] chronic parenchymal fibrotic changes greatest in the bases. With honeycombing. It is of groundglass opacities. 2-D echocardiogram: EF 55 have a 60%. [id number] tricuspid regurgitation. Some element of pulmonary hypertension Assessment and plan: -Acute on chronic/metabolic/toxic encephalopathy.: Not improving -Acute hypoxic respiratory failure, multifactorial improving On 4 L nasal cannula -Chronic bilateral pulmonary fibrosis with honeycombing Bronchodilators. -poss seizure Keppra -Paroxysmal atrial flutter-fibrillation, in sinus rhythm By mouth amiodarone. Eliquis . -Chronic pulmonary fibrosis especially at the bases with honeycombing -Schizoaffective disorder On Invega -COPD in a smoker DuoNeb. -Hypernatremia from free water deficit: IV fluids. Follow BMP -Severe Hypokalemia Replace potassium -Acute on chronic medical debility. Patient has not been out of bed. Not communicating. Not eating. -DO NOT RESUSCITATE/comfort measures I have discontinued all non-comfort medications. Depending how patient does today. Patient should be able to return for hospice to [facility] tomorrow.
--- NOTE | 2021-07-03 09:57 | P.DS ---
Providers Date of admission: 06/29/21 10:02 Expected date of discharge: 07/03/21 Attending physician: Perry [place] Consults: 06/29/21 09:55 Consult Physician Routine Consulting Provider: Nathanael Crespo Consult Reason/Comments: dyspnea, chf Do you want consulting provider notified?: Yes Primary care physician: [facility] Course: History of presenting complaint: This is a 56-year-old patient, follows with Dr. Beltrán at the [facility]. admitted to the hospital in May 05 and transferred on May 10 2 Caridad Lindsay.Admitted then UTI from cystitis with sepsis, bilateral pneumonia, septic shock, acute kidney injury with ATN.IV fluids. IV ceftriaxone. Admitted to the ICU. transfer out was done for continuous EEG monitoring. June 16 admitted with unresponsiveness. hypotensive. Acute kidney injury. abnormal liver enzymes, UA was positive. intubated / mechanical ventilator. atrial fibrillation. Admitted with acute metabolic/toxic encephalopathy from sepsis, septic shock, pneumonia, acute kidney injury likely from ATN, atrial flutter fibrillation rate uncontrolled, metabolic acidosis. ICU drips include norepinephrine, propofol, OG tube feeding. She GI bleed that was self-limited. June 21 patient was extubated. received IV Zosyn and vancomycin. started on Keppra by neurology. Patient had declined a PEG tube. Patient hasn't done too well with swallowing. Comfort feeding done. At this point patient is a DO NOT RESUSCITATE. Patient's son was leaning towards comfort measures. package worker was involved in a court-appointed guardian as thermal finding it difficult to get out of the sun. Patient was discharged to the [facility] on June 25. Patient now readmitted on June 29 with increasing shortness of breath. It to be CHF exacerbation. Put on IV Lasix. Also put on IV Zosyn for possible pneumonia. Patient continued to do poorly. Not able to eat. Continue to decline. On July 02 hearing was done in front of [employer] Manager Glenn. Latonia was appointed as a public guardian. Hospice was okayed. Most of the medications were discontinued. July 03: Laying in bed. Answering occasional question. Eyes open. Congested chest. Consultation: [facility] Past medical history to include: Atrial fibrillation, bibasilar fibrotic lung changes with honeycombing, schizoaffective disorder, nicotine use, in February/2021 patient did have a left tibial plate to and left proximal fibular fracture Social history: ECF. Smoker, until recently. Marijuana use history of Family history: Could not be obtained. Physical examination: VITAL SIGNS: 99, 78, 16, 150-68, 94% on 4 L GENERAL: Laying in bed, tired, eyes open, tired EYES: Pupils equal. Conjunctiva normal. HEENT: External appearance of nose and ears normal, oral cavity mucous membranes. NECK: JVD unable to assess; masses not palpable. HEART: First and second heart sounds are normal; mild edema. LUNGS: Respiratory rate increased; decreased breath sounds , audible crackles ABDOMEN: Soft, nontender, liver spleen not palpable, no masses palpable. PSYCH: Answering occasional question NEURO: Occasionally open eyes. INVESTIGATIONS, reviewed in the clinical context: July 02: Sodium 146 potassium 2.5 creatinine 0.86 July 01: Sodium 154 potassium 4.6 creatinine 0.76 June 30: WBC 12.7 hemoglobin 10.1 platelets 278 sodium 147 potassium 2.8 creatinine 0.83 Troponin I negative proBNP 1950 COVID 19 [PCR]: Negative EKG tracing personally reviewed by me-sinus rhythm 84/m Chest x-ray film personally reviewed by me-catheter infiltrates Previous testing: May 10: BUN 17 creatinine 0.93, AST/ALT both normal CT chest [02/24/2021] chronic parenchymal fibrotic changes greatest in the bases. With honeycombing. It is of groundglass opacities. 2-D echocardiogram: EF 55 have a 60%. [id number] tricuspid regurgitation. Some element of pulmonary hypertension Assessment and plan: -Acute on chronic/metabolic/toxic encephalopathy.: Slow to respond -Acute hypoxic respiratory failure, multifactorial On 4 L nasal cannula -Chronic bilateral pulmonary fibrosis with honeycombing Bronchodilators. -poss seizure Keppra -Paroxysmal atrial flutter-fibrillation, in sinus rhythm By mouth amiodarone. Eliquis . -Chronic pulmonary fibrosis especially at the bases with honeycombing -Schizoaffective disorder On Invega -COPD in a smoker DuoNeb. -Hypernatremia from free water deficit: IV fluids. Follow BMP -Severe Hypokalemia Replace potassium -Acute on chronic medical debility. Patient has not been out of bed. Not co mmunicating. Not eating. -DO NOT RESUSCITATE/comfort measures I have discontinued all non-comfort medications. Depending how patient does today. Patient should be able to return for hospice to [facility] tomorrow. Disposition: [facility] at [facility] Plan - Discharge Summary New Discharge Prescriptions: New Scopolamine 1.5MG/72Hr Patch [TransDerm Scop] 1 patch TRANSDERM Q72H patch Continue Levothyroxine Sodium [Synthroid] 50 mcg PO DAILY@0500 levETIRAcetam [Keppra] 500 mg PO BID #1 tab Ipratropium-Albuterol Nebulize [Duoneb 0.5 mg-3 mg/3 ml Soln] 3 ml INHALATION RT-TID PRN PRN Reason: Shortness Of Breath Discontinued DULoxetine HCL [Cymbalta] 30 mg PO DAILY 30 Days capsule. Albuterol Inhaler [Ventolin Hfa Inhaler] 2 puff INHALATION RT-Q4H PRN PRN Reason: Shortness Of Breath Or Wheezing Aspirin 81 mg PO DAILY #30 chew Melatonin 3 mg PO HS PRN PRN Reason: Insomnia Folic Acid 1 mg PO DAILY Amoxicillin/Potassium Clav [Augmentin 875-125 Tablet] 1 tab PO Q12HR #14 tab Amiodarone [Cordarone] 200 mg PO DAILY #1 tab Pantoprazole [Protonix] 40 mg PO BID #0 Discharge Medication List Levothyroxine Sodium [Synthroid] 50 mcg PO DAILY@0500 06/16/21 [History] levETIRAcetam [Keppra] 500 mg PO BID #1 tab 06/23/21 [Rx] Ipratropium-Albuterol Nebulize [Duoneb 0.5 mg-3 mg/3 ml Soln] 3 ml INHALATION RT-TID PRN 06/29/21 [History] Scopolamine 1.5MG/72Hr Patch [TransDerm Scop] 1 patch TRANSDERM Q72H patch 06/20 01/08 [Rx] Follow up Appointment(s)/Referral(s): Markie Beltrán DO [Primary Care Provider] - 1-2 days
[2021-07-03 12:36] VITALS: BP 106/66; PULSE 95; RESP 19; TEMP 98.4
== END 2021-07-03 13:40 | disposition hospice, home (50) | DRG 291 ==
LOC: EC 06:42 → 3SCARD 10:02
PROVIDERS: ADMIT Hospitalist; ATTEND Hospitalist
PROC: 06HY33Z Insertion of Infusion Device into Lower Vein, Percutaneous Approach (ICD-10-PCS; 2021-06-29)
PROC: 05HD33Z Insertion of Infusion Device into Right Cephalic Vein, Percutaneous Approach (ICD-10-PCS; principal; 2021-07-01 09:20)
DX: I11.0 Hypertensive heart disease with heart failure (principal); I50.31 Acute diastolic (congestive) heart failure; J96.01 Acute respiratory failure with hypoxia; J18.9 Pneumonia, unspecified organism; G92.8 Other toxic encephalopathy; E87.0 Hyperosmolality and hypernatremia; I48.92 Unspecified atrial flutter; J44.0 Chronic obstructive pulmonary disease with (acute) lower respiratory infection; E03.9 Hypothyroidism, unspecified; E87.6 Hypokalemia; F03.90 Unspecified dementia, unspecified severity, without behavioral disturbance, psychotic disturbance, mood disturbance, and anxiety; F17.200 Nicotine dependence, unspecified, uncomplicated; F25.9 Schizoaffective disorder, unspecified; I48.0 Paroxysmal atrial fibrillation; J84.10 Pulmonary fibrosis, unspecified; Z66 Do not resuscitate; Z87.440 Personal history of urinary (tract) infections; Z20.822 Contact with and (suspected) exposure to COVID-19; Z79.890 Hormone replacement therapy; Z79.82 Long term (current) use of aspirin; Z79.899 Other long term (current) drug therapy; Z51.5 Encounter for palliative care; Z90.721 Acquired absence of ovaries, unilateral; Z95.2 Presence of prosthetic heart valve; Z88.5 Allergy status to narcotic agent; E66.9 Obesity, unspecified; Z68.32 Body mass index [BMI] 32.0-32.9, adult; R56.9 Unspecified convulsions
CPT/HCPCS: 36410; 36415; 36556; 71045; 76937; 80048; 80053; 81001; 83605; 83735; 83880; 84145; 84484; 85025; 85610; 85730; 87040; 87635; 93005; 96374; 99285